=== PATIENT | female | born 1950 | race African-American/Black ===

== ENCOUNTER 2016-03-11 15:08 | Inpatient (IN) | payer BC, OTHER ==
[2016-03-11 15:16] VITALS: BMI 33.5
--- NOTE | 2016-03-11 15:42 | PDOC ---
History of Present Illness - General History Source: Patient Exam Limitations: No Limitations - History of Present Illness Initial Comments: 03/11/16 15:52 The patient is a 66-year-old woman, accompanied by family, with a significant past medical history of anemia, hypertension, CVA, end-stage renal disease (on hemo-dialysis;TRS), insulin-dependent diabetes mellitus who presents to the emergency department for further evaluation of abdominal pain since yesterday. Patient states that he abdominal pain is diffuse and associated with nausea vomiting and shortness of breath. Patient does not provide the nature of the pain and provide exacerbating/alleviating factors but states that her pain was so severe that it did not allow for her to undergo hemo-dialysis yesterday. Patient also notes that she feels lightheaded and thirsty. No fevers, chills, chest pain, cough, back pain. Allergies: None Known Drug Allergies. Nuts. Pats Surgical History: Appendectomy. Caesarian Sections x3. Tubal ligation. Social History: No tobacco, ETOH and recreational drug use. Primary Care Physician: Dr. Rebecca Villarreal Supervisor Pipeline Maintenance: Dr. Garfield Arriaza [place] Operator: Dr. Alessia Keenan <Marzena Riojas - Last Filed: 03/11/16 17:06> <Jodi Justin - Last Filed: 03/12/16 10:36> - General Chief Complaint: Shortness of Breath Stated Complaint: SOB Time Seen by Provider: 03/11/16 15:41 Past History <Marzena Riojas - Last Filed: 03/11/16 17:06> - Past Medical History Anemia: Yes Asthma: Yes Cancer: No Cardiac Disorders: No CVA: Yes CHF: No Diabetes: Yes (NIDDM) GI Disorders: No Disorders: No HTN: Yes Hypercholesterolemia: No Liver Disease: No - Surgical History Abdominal Surgery: No Appendectomy: Yes Cardiac Surgery: No Cholecystectomy: No Lung Surgery: No Neurologic Surgery: No Orthopedic Surgery: No - Psycho/Social/Smoking Cessation Hx Anxiety: No Suicidal Ideation: No Smoking Status: No Smoking History: Never smoked Have you smoked in the past 12 months: No Number of Cigarettes Smoked Daily: 0 Information on smoking cessation initiated: No Hx Alcohol Use: No Drug/Substance Use Hx: No Substance Use Type: None Hx Substance Use Treatment: No <Jodi Justin - Last Filed: 03/12/16 10:36> - Past Medical History Allergies/Adverse Reactions: Allergies Allergy/AdvReac Type Severity Reaction Status Date / Time nut - unspecified [nut] Allergy Verified 03/11/16 15:12 Home Medications: Ambulatory Orders Aspirin/Dipyridamole [Aggrenox -] 1 combo PO BID 12/23/15 Methimazole 5 mg PO DAILY 12/23/15 Clonidine HCl [Catapres -] 0.1 mg PO TID #0 tablet 01/12/16 Diltiazem Cd [Cardizem Cd -] 120 mg PO DAILY cap.cd.24h 01/12/16 Ferrous Sulfate [Feosol] 325 mg PO TIDCM ud 01/12/16 Furosemide [Lasix -] 80 mg PO DAILY tablet 01/12/16 Metoprolol Succinate [Toprol XL -] 25 mg PO BID tab.sr.24h 01/12/16 Nifedipine ER [Procardia XL -] 60 mg PO BID tab.er.24 01/12/16 Review of Systems - Review of Systems Able to Perform ROS?: Yes Comments:: 03/11/16 15:52 GENERAL/CONSTITUTIONAL: No fever or chills. No weakness. HEAD, EYES, EARS, NOSE AND THROAT: No change in vision. No ear pain or discharge. No sore throat. CARDIOVASCULAR: Yes: +Shortness of breath. No chest pain. RESPIRATORY: No cough, wheezing, or hemoptysis. GASTROINTESTINAL: Yes: +Abdominal Pain. +Nausea. +Vomiting. No diarrhea or constipation. GENITOURINARY: No dysuria, frequency, or change in urination. MUSCULOSKELETAL: No joint or muscle swelling or pain. No neck or back pain. SKIN: No rash NEUROLOGIC: Yes: +Lightheaded. No headache, vertigo, loss of consciousness. ENDOCRINE: Yes: +Increased thirst. No abnormal weight change. HEMATOLOGIC/LYMPHATIC: No anemia, easy bleeding, or history of blood clots. ALLERGIC/IMMUNOLOGIC: No hives or skin allergy. <Marzena Riojas - Last Filed: 03/11/16 17:06> *Physical Exam - Vital Signs Last Vital Signs Temp Pulse Resp BP Pulse Ox 97.4 F L 114 H 26 H 140/98 100 03/11/16 15:12 03/11/16 15:12 03/11/16 15:12 03/11/16 15:12 03/11/16 15:12 <Marzena Riojas - Last Filed: 03/11/16 17:06> - Vital Signs Last Vital Signs Temp Pulse Resp BP Pulse Ox 97.4 F L 114 H 26 H 140/98 100 03/11/16 15:12 03/11/16 15:12 03/11/16 15:12 03/11/16 15:12 03/11/16 15:12 - Physical Exam Comments: GENERAL: Awake, alert, and fully oriented, in no acute distress. Morbidly obese. HEAD: No signs of trauma EYES: PERRLA, EOMI, sclera anicteric, conjunctiva clear ENT: Auricles normal inspection, hearing grossly normal, nares patent, oropharynx clear without exudates. Moist mucosa NECK: Normal ROM, supple, no lymphadenopathy, JVD, or masses LUNGS: Distant breath sounds due to body habitus. Breath sounds equal, clear to auscultation bilaterally. HEART: Regular rate and rhythm, normal S1 and S2, no murmurs, rubs or gallops ABDOMEN: Soft, nontender, normoactive bowel sounds. No guarding, no rebound. No masses EXTREMITIES: Normal range of motion, no edema. No clubbing or cyanosis. No cords, erythema, or tenderness NEUROLOGICAL: Cranial nerves II through XII grossly intact. Normal speech, normal gait SKIN: Warm, Dry, normal turgor, no rashes or lesions noted. <Jodi Justin - Last Filed: 03/12/16 10:36> ED Treatment Course - LABORATORY CBC & Chemistry Diagram: 03/11/16 15:50 03/11/16 15:50 <Marzena Riojas - Last Filed: 03/11/16 17:06> - LABORATORY CBC & Chemistry Diagram: 03/11/16 15:50 03/11/16 15:50 - RADIOLOGY Radiology Studies Ordered: Category Date Time Status CHEST X-RAY PORTABLE* [RAD] Stat Radiology 03/11/16 15:35 Ordered <Jodi Justin - Last Filed: 03/12/16 10:36> Medical Decision Making - Medical Decision Making 03/11/16 16:53 A call was placed to Supervisor Pipeline Maintenance, Dr. Garfield Arriaza at [phone]. <Marzena Riojas - Last Filed: 03/11/16 17:06> - Medical Decision Making 03/11/16 17:[address] Nava. Pt presents with multiple complaints, including abdominal pain, shortness of breath, and N/V. Denies chest pain. She is awaiting CT a/p. Her first cardiac enzyme was elevated. I discussed with Dr. Hernandez, covering Dr. Arriaza. Will continue to trend her enzymes, but in light of history of renal failure and fluid overload, will not intervene acutely at this point. I have given patient cardizem for her tachycardia. Dr. Nava to f/ u CT, then discuss with Dr. Villarreal for admission. <Jodi Justin - Last Filed: 03/12/16 10:36> *DC/Admit/Observation/Transfer - Attestations Scribe Attestion: 03/11/16 15:52 Documentation prepared by Marzena Riojas, acting as medical policy specialist for Jodi Justin MD. <Marzena Riojas - Last Filed: 03/11/16 17:06> <Jodi Justin - Last Filed: 03/12/16 10:36> Diagnosis at time of Disposition: End stage renal disease on dialysis, SVT (supraventricular tachycardia), Elevated troponin Abdominal pain Qualifiers: Abdominal location: generalized Qualified Code(s): R10.84 - Generalized abdominal pain - Referrals
[2016-03-11 15:55] LABS: BASOPHIL 1.3 % (0-2.0); EOSINOPHIL 0.2 % (0-4.5); MCH 25.7 pg (25.7-33.7); MCHC 30.9 g/dl (32.0-36.0); MEAN CELL VOLUME 83.2 fl (80-96); NEUTROPHILS 80.9 % (42.8-82.8); PLATELET COUNT 297 K/MM3 (134-434); RDW 14.9 % (11.6-15.6); WHITE BLOOD COUNT 12.8 K/mm3 (4.0-10.0)
[2016-03-11] MEDS ORDERED: NITROGLYCERIN 2% OINTMENT - 1GM PACKET TD ONE (15:58)
[2016-03-11 16:08] LABS: INR 1.12 (0.82-1.09); PROTHROMBIN TIME (PATIENT) 12.3 SEC (9.98-11.88)
[2016-03-11 16:23] LABS: ALBUMIN 2.8 g/dl (3.4-5.0); BILIRUBIN,TOTAL 0.6 mg/dL (0.2-1.0); CALCIUM 8.9 mg/dL (8.5-10.1); CREATININE 3.1 mg/dL (0.55-1.02); TOT PROT 6.9 g/dl (6.4-8.2)
[2016-03-11 16:43] LABS: TROPONIN I 0.54 ng/ml (0.00-0.05)
[2016-03-11] MEDS ORDERED: dilTIAZem HCL 50 MG/10 ML - 10 ML VIAL IVPUSH ONE ×2 (17:23→17:47)
[2016-03-11] MEDS ORDERED: dilTIAZem HCL 125 MG/25 ML - 25 ML VIAL ONE ×3 (17:26→19:17)
--- NOTE | 2016-03-11 17:46 | PDOC ---
*Physical Exam - Vital Signs Last Vital Signs Temp Pulse Resp BP Pulse Ox 97.4 F L 168 H 24 104/67 94 L 03/11/16 15:12 03/11/16 19:26 03/11/16 18:26 03/11/16 19:26 03/11/16 18:16 <Astrid Samaniego - Last Filed: 03/11/16 19:31> - Vital Signs Last Vital Signs Temp Pulse Resp BP Pulse Ox 97.4 F L 112 H 26 H 139/92 100 03/11/16 15:12 03/11/16 16:13 03/11/16 16:13 03/11/16 16:13 03/11/16 16:13 <Ebony Nava - Last Filed: 03/12/16 01:26> ED Treatment Course - LABORATORY CBC & Chemistry Diagram: 03/11/16 15:50 03/11/16 15:50 - ADDITIONAL ORDERS Additional order review: Laboratory Results 03/11/16 03/11/16 15:50 15:50 INR 1.12 Sodium 141 Potassium 4.6 D Chloride 106 Carbon Dioxide 25 Anion Gap 10 BUN 13 D Creatinine 3.1 H Creat Clearance w eGFR 15.03 Random Glucose 228 H D Calcium 8.9 Total Bilirubin 0.6 AST 28 ALT 22 D Alkaline Phosphatase 168 H Creatine Kinase 49 Troponin I 0.54 H B-Natriuretic Peptide 01118.03 H Total Protein 6.9 D Albumin 2.8 L 03/11/16 15:50 RBC 4.46 D MCV 83.2 MCHC 30.9 L RDW 14.9 D MPV 9.0 Neutrophils % 80.9 Lymphocytes % 10.1 D Monocytes % 7.5 Eosinophils % 0.2 Basophils % 1.3 D - Medications Given in the ED: ED Medications Discontinued Medications Generic Name Dose Route Start Last Admin Trade Name Freq PRN Reason Stop Dose Admin Diltiazem HCl 10 mg 03/11/16 17:23 03/11/16 17:30 Cardizem Injection - IVPUSH 03/11/16 17:24 10 mg ONCE ONE Administration Diltiazem HCl 10 mg 03/11/16 17:47 03/11/16 17:50 Cardizem Injection - IVPUSH 03/11/16 17:48 10 mg ONCE ONE Administration Metoprolol Succinate 25 mg 03/11/16 18:56 03/11/16 19:03 Toprol Xl - PO 03/11/16 18:57 25 mg ONCE ONE Administration Metoprolol Tartrate 5 mg 03/11/16 18:06 03/11/16 18:00 Lopressor Injection - IVPUSH 03/11/16 18:07 5 mg NOW ONE Administration Nitroglycerin 1 inch 03/11/16 15:58 03/11/16 16:15 Nitro-Bid 2% Paste - TD 03/11/16 15:59 1 inch ONCE ONE Administration <Astrid Samaniego - Last Filed: 03/11/16 19:31> - LABORATORY CBC & Chemistry Diagram: 03/11/16 15:50 03/11/16 15:50 - ADDITIONAL ORDERS Additional order review: Laboratory Results 03/11/16 03/11/16 15:50 15:50 INR 1.12 Sodium 141 Potassium 4.6 D Chloride 106 Carbon Dioxide 25 Anion Gap 10 BUN 13 D Creatinine 3.1 H Creat Clearance w eGFR 15.03 Random Glucose 228 H D Calcium 8.9 Total Bilirubin 0.6 AST 28 ALT 22 D Alkaline Phosphatase 168 H Creatine Kinase 49 Troponin I 0.54 H B-Natriuretic Peptide 27151.03 H Total Protein 6.9 D Albumin 2.8 L 03/11/16 15:50 RBC 4.46 D MCV 83.2 MCHC 30.9 L RDW 14.9 D MPV 9.0 Neutrophils % 80.9 Lymphocytes % 10.1 D Monocytes % 7.5 Eosinophils % 0.2 Basophils % 1.3 D - Medications Given in the ED: ED Medications Discontinued Medications Generic Name Dose Route Start Last Admin Trade Name Danny PRN Reason Stop Dose Admin Diltiazem HCl 10 mg 03/11/16 17:23 03/11/16 17:30 Cardizem Injection - IVPUSH 03/11/16 17:24 10 mg ONCE ONE Administration Nitroglycerin 1 inch 03/11/16 15:58 03/11/16 16:15 Nitro-Bid 2% Paste - TD 03/11/16 15:59 1 inch ONCE ONE Administration <Ebony Nava - Last Filed: 03/12/16 01:26> Medical Decision Making - Medical Decision Making 03/11/16 19:[address] Arriaza at at 17:25. Referred to answering service. Dr. Hernandez, covering for Dr. Arriaza, returned call at 15:31. Case discussed. Called patients PCP, Dr. Rebecca Villarreal, at at 15:48. Referred to answering service. Dr. Villarreal returned call at 18:02. Case discussed. Called Dr. Alessia Lindquist at at 19:18. Referred to answering service. Dr. Lindquist returned call at 17:23. Case discussed. Dr. Lindquist will give patient dialysis tomorrow morning. <Astrid Samaniego - Last Filed: 03/11/16 19:31> - Critical Care Time Total Critical Care Time (minutes): 60 Critical Care Statement: The care of this patient involved high complexity decision making to prevent further life threatening deterioration of the patient 's condition and/or to evalute & treat vital organ system(s) failure or risk of failure. - Medical Decision Making 03/11/16 17:59 This 66-year-old female who is diabetic with end-stage renal disease is being admitted to telemetry because she had a troponin that was 0.54. We spoke to Dr. Weir and he said the patient should be admitted and we will trend her troponins. Nothing further to be done at this time. I had to call the restaurant supervisor back because earlier in order for Cardizem 10 mg IV push was written and the nurse administered Cardizem and the heart rate went up to the 180s. I spoke with Dr. Rubalcava and he said to try another 10 mg of Cardizem and then to start the patient on a Cardizem drip. 03/11/16 21:28 And found to have a temperature 11.6 Patient was given Tylenol Influenza culture was sent Blood culture and urinalysis ,urine cultures will be sent Dr. Rebecca Cobos was informed and requested Rocephin IV - spoke w to Dr. Rubalcava for a second time because she kept having recurrent tachycardia even after her fever came down. She seems to respond better to the beta blockers than the cardizem gtt and therefore he said to try to give her more Toprol. 03/12/16 01:24 <Ebony Nava - Last Filed: 03/12/16 01:26> *DC/Admit/Observation/Transfer - Attestations Scribe Attestion: 03/11/16 19:31 Documentation prepared by Atsrid Samaniego, acting as diploma medical assistant for Jodi Justin MD. <Astrid Samaniego - Last Filed: 03/11/16 19:31> - Discharge Dispostion Admit: Yes <Ebony Nava - Last Filed: 03/12/16 01:26> Diagnosis at time of Disposition: End stage renal disease on dialysis, SVT (supraventricular tachycardia), Elevated troponin - Referrals - Patient Instructions - Post Discharge Activity
[2016-03-11] MEDS ORDERED: dilTIAZem HCL 50 MG/10 ML - 10 ML VIAL ONE ×2 (17:51→19:17)
[2016-03-11] MEDS ORDERED: METOPROLOL TARTRATE 5 MG/5 ML VIAL ONE ×3 (17:56→23:25)
[2016-03-11] MEDS ORDERED: METOPROLOL TARTRATE 5 MG/5 ML VIAL IVPUSH ONE ×3 (18:06→23:30)
[2016-03-11] MEDS ORDERED: METOPROLOL SUCCINATE 100 MG TAB.SR.24H (FP) PO ONE (18:56)
[2016-03-11] MEDS ORDERED: METOPROLOL TARTRATE 25 MG TABLET (FP) ONE (18:59)
[2016-03-11] MEDS ORDERED: METOPROLOL SUCCINATE 50 MG TAB.SR.24H (FP) ONE ×3 (19:00→23:59)
[2016-03-11] MEDS ORDERED: DILTIAZEM INJECTION 125 MG in DEXTROSE 5%-WATER - 100 ML IVPB ONE (19:26)
[2016-03-11] MEDS ORDERED: SODIUM CHLORIDE 0.9% 1000 ML INFUS.BAG IV ONE (20:07)
[2016-03-11] MEDS ORDERED: ACETAMINOPHEN INJECTION 100 ML IVPB ONE (20:53)
[2016-03-11] MEDS ORDERED: ACETAMINOPHEN 1000 MG/100 ML VIAL (NON FORMULARY) IVPB ONE (20:57)
[2016-03-11] MEDS ORDERED: OSELTAMIVIR PHOSPHATE 75 MG CAPSULE PO ONE (21:00)
[2016-03-11] MEDS ORDERED: ACETAMINOPHEN 1000 MG/100 ML VIAL (NON FORMULARY) IVPB PRN (21:00)
[2016-03-11] MEDS ORDERED: OSELTAMIVIR PHOSPHATE 75 MG CAPSULE ONE (21:04)
[2016-03-11] MEDS ORDERED: CEFTRIAXONE 1 GM in DEXTROSE 5%-WATER - 50 ML IVPB SCH (21:45)
[2016-03-11] MEDS ORDERED: CEFTRIAXONE 50 ML ONE (21:49)
[2016-03-11] MEDS: METOPROLOL SUCCINATE 25 MG TAB.SR.24H (FP) PO SCH (21:55)
[2016-03-11] MEDS: ASPIRIN/DIPYRIDAMOLE 25 MG/200 MG CAPSULE (FP) PO SCH (21:55)
[2016-03-11] MEDS: HEPARIN NA (PORCINE) 5,000 UNITS/ML 1ML VIAL SQ SCH (21:55)
[2016-03-11] MEDS ORDERED: NIFEdipine E.R 60 MG TABLET (UD) PO SCH (22:00)
[2016-03-11] MEDS ORDERED: cloNIDine HCL 0.1 MG TABLET PO SCH (22:00)
[2016-03-11] MEDS ORDERED: METHIMAZOLE 5 MG TABLET (FP) PO ONE (22:57)
[2016-03-12] MEDS ORDERED: METOPROLOL SUCCINATE 25 MG TAB.SR.24H (FP) PO ONE (00:15)
[2016-03-12 02:03] LABS: TROPONIN I 0.52 ng/ml (0.00-0.05)
[2016-03-12] MEDS ORDERED: ONDANSETRON 4 MG/2 ML VIAL ONE (03:04)
[2016-03-12] MEDS ORDERED: METOPROLOL TARTRATE 5 MG/5 ML VIAL ONE (04:20)
[2016-03-12] MEDS ORDERED: METOPROLOL TARTRATE 5 MG/5 ML VIAL IVPUSH ONE (04:26)
[2016-03-12] MEDS ORDERED: AMIODARONE HCL 150 MG/3 ML VIAL ONE (06:01)
[2016-03-12] MEDS ORDERED: AMIODARONE HCL INJECTION 150 MG in DEXTROSE 5%-WATER - 97 ML IVPB ONE (06:15)
[2016-03-12] MEDS ORDERED: AMIODARONE HCL INJECTION 450 MG in DEXTROSE 5%-WATER - 241 ML IVPB SCH (06:30)
--- NOTE | 2016-03-12 08:57 | CONSULT ---
Consultation: REQUESTING PROVIDER: CONSULT REQUEST: We have been asked to medically evaluate this patient for sepsis. HISTORY OF PRESENT ILLNESS: 66 year old female came in to the ED with the chief complaints of abdominal pain x 2 days. Abdominal pain started 2 days ago, progressively getting worse, initially 5/10 in intensity rising to 9/10 in intensity, crampy in nature, located on the right lower quadrant, non radiating, no aggravating or relieving factors. Abdominal pain was associated with nausea, 2 episodes of vomiting containing food particles, no blood noted. Also had 5 episodes of diarrhoea at home, watery in consistency, large in amount, no blood noticed. No h/o traveling, no sick contact, no change in food habits. Patient skipped dialysis on Saturday since she was light headed. Also complaints of palpitation and mild SOB on exertion but no chest pain, cough. Patient still complaints of nausea, had few episodes of vomiting and diarrhoea in the ED. Past Medical Hx: HTN, DM, ESRD on dialysis (T,,Sat), ILD ? cause, anemia, Hepatitis C, SVT Allergies- Nuts, Mushrooms Surgical Hx: Appendectomy many years ago, section x 3, tubal ligation Hospitalization: Multiple admissions, last visit 01/30/2016 s/p fall Social Hx: Never smoked, never took alcohol, no illicit drug use Lives with daughter and grand daughter. Able to perform daily activities on her own. ED course: 1. Tachycardic HR max-180, Tmax-101.6F, 26 RR 2. Given Ceftriaxone, started on Cardizem drip and Amiodarone drip REVIEW OF SYSTEMS: CONSTITUTIONAL: Absent: fever, chills, diaphoresis, generalized weakness, malaise, loss of appetite, weight change HEENT: Absent: rhinorrhea, nasal congestion, throat pain, throat swelling, difficulty swallowing, mouth swelling, ear pain, eye pain, visual changes CARDIOVASCULAR: Present: palpitations Absent: chest pain, syncope, , irregular heart rate, lightheadedness, peripheral edema RESPIRATORY: Present: SOB Absent: cough, dyspnea with exertion, orthopnea, wheezing, stridor, hemoptysis GASTROINTESTINAL: Present: abdominal pain, abdominal distension, nausea, vomiting, diarrhea Absent: constipation, melena, hematochezia GENITOURINARY: Absent: dysuria, frequency, urgency, hesitancy, hematuria, flank pain, genital pain MUSCULOSKELETAL: Absent: myalgia, arthralgia, joint swelling, back pain, neck pain SKIN: Absent: rash, itching, pallor HEMATOLOGIC/IMMUNOLOGIC: Absent: easy bleeding, easy bruising, lymphadenopathy, frequent infections ENDOCRINE: Absent: unexplained weight gain, unexplained weight loss, heat intolerance, cold intolerance NEUROLOGIC: Absent: headache, focal weakness or paresthesias, dizziness, unsteady gait, seizure, mental status changes, bladder or bowel incontinence PSYCHIATRIC: Absent: anxiety, depression, suicidal or homicidal ideation, hallucinations. PHYSICAL EXAMINATION Vital Signs - 24 hr 03/11/16 03/11/16 03/11/16 22:18 22:32 23:08 Temperature 97.9 F Pulse Rate Pulse Rate [ 107 H 162 H 155 H Apical] Respiratory 22 22 18 Rate Blood Pressure Blood Pressure 147/98 82/62 96/56 [Right Arm] O2 Sat by Pulse 100 100 100 Oximetry (%) 03/11/16 03/11/16 03/12/16 23:30 23:56 00:49 Temperature Pulse Rate 155 H Pulse Rate [ 90 89 Apical] Respiratory 18 17 Rate Blood Pressure 103/86 Blood Pressure 130/91 141/78 [Right Arm] O2 Sat by Pulse 100 99 Oximetry (%) 03/12/16 03/12/16 03/12/16 01:41 03:13 04:26 Temperature Pulse Rate 155 H 155 H Pulse Rate [ 150 H Apical] Respiratory 17 Rate Blood Pressure 79/58 121/76 Blood Pressure 95/66 [Right Arm] O2 Sat by Pulse 100 Oximetry (%) 03/12/16 03/12/16 03/12/16 04:27 05:08 06:36 Temperature Pulse Rate Pulse Rate [ 88 98 H 90 Apical] Respiratory 16 22 Rate Blood Pressure Blood Pressure 152/96 147/94 [Right Arm] O2 Sat by Pulse 100 100 Oximetry (%) 03/12/16 08:21 Temperature Pulse Rate Pulse Rate [ 85 Apical] Respiratory 31 H Rate Blood Pressure Blood Pressure 145/91 [Right Arm] O2 Sat by Pulse 98 Oximetry (%) GENERAL: Patient in bed in propped up position, Awake, alert, and fully oriented , in no acute distress. HEAD: Normal with no signs of trauma. EYES: EOM intact, mild pallor +, no icterus. EARS, NOSE, THROAT: Ears normal, moist mucous membranes NECK: Supple, no JVD or mass. LUNGS: Breath sounds equal, clear to auscultation bilaterally. No wheezes, and no crackles. No accessory muscle use. HEART: Tachycardic, visible apical impulse, Regular rate and rhythm, normal S1 and S2, no murmur ABDOMEN: Soft, tenderness over right lower quadrant, normoactive bowel sounds, no guarding, no rebound, no masses. Hepatosplenomegaly couldn't be appreciated due to pain. MUSCULOSKELETAL: Normal range of motion at all joints. No bony deformities or tenderness. No CVA tenderness. UPPER EXTREMITIES: Left AV fistula thrill +, 2+ pulses, warm, well-perfused. No cyanosis. No clubbing. Cap refill <2 seconds. No peripheral edema. LOWER EXTREMITIES: Scaly skin, dry, skin, stasis dermatitis B/L LE, 2+ pulses, warm, well-perfused. No calf tenderness. B/L pitting edema. NEUROLOGICAL: Cranial nerves II-XII intact. Normal speech. Normal gait. PSYCHIATRIC: Cooperative. Good eye contact. Appropriate mood and affect. SKIN: Warm, dry, normal turgor, no rashes or lesions noted. Laboratory Results - last 24 hr 03/12/16 00:01 Creatine Kinase 51 Troponin I 0.52 H Active Medications Generic Name Dose Route Start Last Admin Trade Name Danny PRN Reason Stop Dose Admin Acetaminophen 1,000 mg 03/11/16 21:00 Ofirmev Injection - IVPB 03/12/16 15:01 Q6H PRN FEVER OR PAIN Dipyridamole/Aspirin 1 combo 03/11/16 22:00 03/11/16 21:55 Aggrenox - PO 1 combo BID EMELINA Administration Ferrous Sulfate 325 mg 03/12/16 08:00 Feosol - PO TIDCM EMELINA Furosemide 80 mg 03/12/16 10:00 Lasix - PO DAILY EMELINA Heparin Sodium (Porcine) 5,000 unit 03/11/16 22:00 03/11/16 21:55 Heparin - SQ 5,000 unit BID EMELINA Administration Diltiazem HCl 125 mg/ Dextrose 125 mls @ 5 mls/hr 03/11/16 19:26 03/12/16 04:30 IVPB 03/12/16 20:25 0 mg/hr TITR ONE Titration Protocol 5 MG/HR Ceftriaxone Sodium 50 mls @ 100 mls/hr 03/11/16 22:17 Rocephin 1gm Ivpb (Pre-Docked) IVPB DAILY EMELINA Amiodarone HCl 450 mg/ 250 mls @ 33.33 mls/hr 03/12/16 06:30 03/12/16 06:36 Dextrose IVPB 33.33 mls/hr TITR EMELINA Administration Protocol 1 MG/MIN Methimazole 5 mg 03/12/16 10:00 Tapazole - PO DAILY EMELINA Metoprolol Succinate 25 mg 03/11/16 22:00 03/11/16 21:55 Toprol Xl - PO 25 mg BID EMELINA Administration Underlying problems:- 66 year old with significant PMH HTN, DM, ESRD on dialysis (T,Th,Sat), ILD ? cause, anemia, Hepatitis C, SVT of female came in to the ED with the chief complaints of abdominal pain x 2 days. Assessment 1. Sepsis unknown source 2. SVT r/o ACS 3. Increased troponins 4. ESRD on Dialysis 5. ILD ? cause 6. Hepatitis C 7. HTN 8. DM # Sepsis unknown source Patient presented with Tmax 101.6F, HR [id number], abdominal pain, diarrhoea, nausea and vomiting Differential diagnosis:- Acute Gastroenteritis, ischemic bowel Less likely diverticulitis -negative in CT abdomen D/w Dr. Churchill. Empiric treatment started with Ceftriaxone and Metronidazole Stool culture, ova parasites, c diff, PCR Norovirus, Ag for Rotavirus ordered Lactic acid ordered CXR, CT abdomen report pending Nasopharyngeal swab to be ordered. # Hepatitis C 01/05/2016: Hepatitis C Ab >11 Do not know if she received the treatment Negative for HIV 01/05/2016 Rest as per primary. Illness, Investigation and plan of care explained to the patient. She verbalized understanding. Case seen and examined with Dr. Caldwell Thank you for the consultative opportunity. Visit type - Emergency Visit Emergency Visit: Yes ED Registration Date: 03/11/16 Care time: The patient presented to the Emergency Department on the above date and was hospitalized for further evaluation of their emergent condition. - New Patient This patient is new to me today: Yes Date on this admission: 03/12/16 - Critical Care Critical Care patient: No
[2016-03-12 09:17] LABS: TROPONIN I 0.52 ng/ml (0.00-0.05)
[2016-03-12] MEDS ORDERED: FERROUS SO4 325 MG TABLET (FP) ONE (09:30)
[2016-03-12] MEDS: FERROUS SO4 325 MG TABLET (FP) PO SCH ×3 (09:32→17:58)
--- NOTE | 2016-03-12 09:42 | CONSULT ---
Consult Consult Specialty:: cardio Referred by:: kee Reason for Consultation:: SVT - History of Present Illness Chief Complaint: abd pain History of Present Illness: 66 yo female here with abd pain; says she often feels this during/after HD; diffuse across belly--no radiation to chest. denies any cp whatsoever. 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: CVA (transient speech loss and left hemiparesis in 2013) Cardio/Vascular: Yes: CHF (end diastolic), HTN, Hyperlipdemia Pulmonary: Yes: Asthma, Pneumonia Gastrointestinal: Yes: Constipation, GERD Renal/: Yes: Renal Inusuff Musculoskeletal: Yes: Osteoarthritis Endocrine: Yes: Diabetes Mellitus (diabetic retinopathy ( treated ) and neuropathy), Hyperthyroidism (Graves Disease with thyroid nodule), Other ( THYROID DISEASE) - Past Surgical History Past Surgical History: Yes: Appendectomy, Colonoscopy, (C section x 4) , Hysterectomy - Alcohol/Substance Use Hx Alcohol Use: No History of Substance Use: reports: None - Smoking History Smoking history: Never smoked Have you smoked in the past 12 months: No Aproximately how many cigarettes per day: 0 - Social History Usual Living Arrangement: Alone ADL: Independent History of Recent Travel: No Home Medications - Allergies Allergies/Adverse Reactions: Allergies Allergy/AdvReac Type Severity Reaction Status Date / Time nut - unspecified [nut] Allergy Verified 03/11/16 15:12 - Home Medications Home Medications: Ambulatory Orders Aspirin/Dipyridamole [Aggrenox -] 1 combo PO BID 12/23/15 Methimazole 5 mg PO DAILY 12/23/15 Clonidine HCl [Catapres -] 0.1 mg PO TID #0 tablet 01/12/16 Diltiazem Cd [Cardizem Cd -] 120 mg PO DAILY cap.cd.24h 01/12/16 Ferrous Sulfate [Feosol] 325 mg PO TIDCM ud 01/12/16 Furosemide [Lasix -] 80 mg PO DAILY tablet 01/12/16 Metoprolol Succinate [Toprol XL -] 25 mg PO BID tab.sr.24h 01/12/16 Nifedipine ER [Procardia XL -] 60 mg PO BID tab.er.24 01/12/16 Family Disease History - Family Disease History Family Disease History: Diabetes: Mother (alive 91), Brother Review of Systems - Review of Systems Constitutional: denies: Chills, Fever Eyes: denies: Eye Pain HENT: denies: Nasal Congestion Neck: denies: Stiffness Cardiovascular: denies: Chest Pain Respiratory: denies: Orthopnea, PND Gastrointestinal: denies: Diarrhea, Rectal Bleeding Genitourinary: denies: Burning, Hematuria Musculoskeletal: denies: Muscle Pain Integumentary: denies: Rash Neurological: denies: Numbness, Seizure, Syncope Endocrine: denies: Excessive Sweating Hematology/Lymphatic: denies: Excessive Bleeding Vital Signs: Vital Signs Temperature 97.9 F 03/11/16 22:32 Pulse Rate 85 03/12/16 08:21 Respiratory Rate 31 H 03/12/16 08:21 Blood Pressure 145/91 03/12/16 08:21 O2 Sat by Pulse Oximetry (%) 98 03/12/16 08:21 Constitutional: Yes: Well Nourished, No Distress Eyes: No: Sclera Icterus HENT: No: Nasal Congestion Neck: No: Decreased ROM Respiratory: Yes: CTA Bilaterally. No: Accessory Muscle Use, Rales, Wheezes Gastrointestinal: Yes: Normal Bowel Sounds. No: Distention, Hepatomegaly, Palpable Mass, Tenderness Cardiovascular: Yes: Regular Rate and Rhythm JVD: No Carotid Bruit: No PMI: Non-Displaced Heart Sounds: Yes: S1, S2. No: Gallop Murmur: No: Systolic Murmur, Diastolic Murmur Musculoskeletal: Yes: Other (No kyphosis) Extremities: No: Cold, Cyanosis Edema: Yes (trace-1+ pretib) Peripheral Pulses: 2+ Left Carotid, 2+ Right Carotid, 2+ Left Doralis Pedis, 2+ Right Dorsalis Pedis Integumentary: No: Jaundice Neurological: Yes: Alert, Oriented (x3) Psychiatric: No: Agitated - Other Data Labs, Other Data: INR, PTT INR 1.12 (0.82-1.09) 03/11/16 15:50 Troponin, BNP 03/12/16 03/12/16 00:01 08:10 Troponin I 0.52 H 0.52 H Troponin, BNP 03/12/16 03/12/16 00:01 08:10 Troponin I 0.52 H 0.52 H Laboratory Tests 03/11/16 03/11/16 03/12/16 15:50 15:50 00:01 WBC 12.8 H Hgb 11.5 D Plt Count 297 D Sodium 141 Potassium 4.6 D Carbon Dioxide 25 BUN 13 D Creatinine 3.1 H AST 28 ALT 22 D Creatine Kinase 49 51 Troponin I 0.54 H 0.52 H B-Natriuretic Peptide 26358.03 H Albumin 2.8 L 03/12/16 08:10 WBC Hgb Plt Count Sodium Potassium Carbon Dioxide BUN Creatinine AST ALT Creatine Kinase 43 Troponin I 0.52 H B-Natriuretic Peptide Albumin ekg #1: NSR, LAFB, nonsp TWAs anterior leads, no path q's #2: rapid SVT (short R-P tach), no isch changes #3: NSR, nonsp TWAs anterior leads (new vs 12/17) and lateral leads (unchanged) Imaging - Results Chest X-ray: Report Reviewed (clear lungs/pleura) Assessment/Plan Echo 12/2015 report: mild dec lvef, global hk, rv tds, mod-sev mr -images reviewed by me: MR is moderate Echo 04/2015: nl lv/rv/valves Assessment/Plan 65-year-old with h/o recent admission for sob with subsequent bronchoscopy and respiratory failure, hypertension, CVA on aggrenox, SVT (new dx on last admission), CKD (possible baseline Cr 1.2-1.6), diabetes, thyroid abnormality on methimazole, multiple abd surgeries including hysterectomy and appendectomy presenting with SOB. fever (101.6 in ER), abd pain, ? septic shock: -CT done in ER, report pending -defer w/u to pmd +/- ID -BPs low at times in ER--appears to be sec to rapid SVTs, as her BPs normalize once she converts to sinus chronic lung dz, ? ILDz: - resp failure during prior admit with pulm infiltrates of unclear etiology, suspected ILDz of ? etiology, clinically improved with empiric steroids trial, open lung bx deferred (bronch was unrevealing) - 12/[address] dilated IVC but only small effusions, with upper lobe infiltrates more c/w PNA than chf (dr devi review: recurrent consolidation in changing locations/distributions in comparison to prior CT, possibly c/w cryptogenic organizing pneumonia/BOOP). elevated troponin: -trop here 0.5 x3, now c/w ACS -likely sec to rapid SVT causing mild Type II NV, vs ESRD pt, vs chronic hi filling pressures/chf -nonspecific TWAs on ekg's here also may be sec to recurrent rapid SVT (? had this as well in [place], causing changes on initial ecg here) -no aggressive anti-ischemic therapy indicated -should have nuclear stress test at some point to risk-stratify and r/o asymptomatic underlying obstructive CAD, though this is not urgent and can wait until she is medically stable -she is already on half-way ASA (Aggrenox); need to review prior admit notes and LFTs re: ? 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 currently having more paroxysms due to febrile illness -started on amio overnight in ER--will plan to give PO diltiazem (currently normal BP) and stop amio gtt if remains in NSR, given her SVT has responded well to dilt in past -d/c metoprolol as was not effective for SVT in past, and ? tenuous hemodynamic status - increast diltiazem (note: please prioritize dilt here to minimize recurrent hospitalizations or risk of tachy-CMP from uncontrolled SVT), d/c nifedipine; - if fails higher dose dilt she may need amio, or outpt EP eval for ablation vs flecainide -rpt echo for LVEF given sx's suggest freq rapid SVTs at home chronic diast CHF with mitral regurg: -vol mgmt primarily via HD/UF, per renal -MR only moderate, not etiologic in chf per my review or last echo -BNP 44K--unreliable in ckd/HD pt -CXR clear -appears euvolemic on exam -intermittent sob at home, likely sec to her chronic ILDz, doubt signif elevated filling pressures HTN -stable on current meds (holding hydralazine in case a cause of pedro per renal) -low bp's at times here ? sepsis, vs ? sec to PSVT ESRD, on HD: -s/p renal bx last time here c/w DM nephropathy -HD per renal h/o CVA - has been on aggrenox est crit care time 35min
[2016-03-12] MEDS ORDERED: ASPIRIN/DIPYRIDAMOLE 25 MG/200 MG CAPSULE (FP) ONE (10:58)
[2016-03-12] MEDS ORDERED: FUROSEMIDE 40 MG TABLET (FP) ONE (10:58)
[2016-03-12] MEDS ORDERED: HEPARIN NA (PORCINE) 5,000 UNITS/ML 1ML VIAL ONE (10:59)
[2016-03-12] MEDS ORDERED: dilTIAZem HCL 60 MG TABLET (FP) ONE (10:59)
[2016-03-12] MEDS: FUROSEMIDE 40 MG TABLET (FP) PO SCH (11:05)
[2016-03-12] MEDS: dilTIAZem HCL 60 MG TABLET (FP) PO SCH ×3 (11:05→21:57)
[2016-03-12] MEDS: ASPIRIN/DIPYRIDAMOLE 25 MG/200 MG CAPSULE (FP) PO SCH ×2 (11:05→21:57)
[2016-03-12] MEDS: METHIMAZOLE 5 MG TABLET (FP) PO SCH (11:18)
[2016-03-12] MEDS: HEPARIN NA (PORCINE) 5,000 UNITS/ML 1ML VIAL SQ SCH ×2 (11:28→21:59)
--- NOTE | 2016-03-12 11:52 | CONSULT ---
Consult - text type - Consultation Consultation Note: Renal Consult for ESRD on HD This is a 66 year old woman with PMhx of ESRD on HD (TTS at [facility]), Hypertension, DM, Hep C who presented with complaints of Abd pain and loose stools and found to have SVT and fever. Pt skipped her last dialysis on Saturday. Her last completed treatment was . Currently complains of abd discomfort but denies any SOB. Started on IV cardizem gtt as per Cardiology. No chest pain. + Nasuea. S/p CT of the Abd that showed no acute pathlogy apart from disruption of fat tissue on Right side of Abd. PMhx: as above Allergies: NKDA Family hx: NC Social hx: No T/A/D ROS: as per HPI, all other pertinent ros negative Home Meds: Medication Instructions Recorded Aspirin/Dipyridamole [Aggrenox -] 1 combo PO BID 12/23/15 Methimazole 5 mg PO DAILY 12/23/15 Clonidine HCl [Catapres -] 0.1 mg PO TID #0 tablet 01/12/16 Diltiazem Cd [Cardizem Cd -] 120 mg PO DAILY cap.cd.24h 01/12/16 Ferrous Sulfate [Feosol] 325 mg PO TIDCM ud 01/12/16 Furosemide [Lasix -] 80 mg PO DAILY tablet 01/12/16 Metoprolol Succinate [Toprol XL -] 25 mg PO BID tab.sr.24h 01/12/16 Nifedipine ER [Procardia XL -] 60 mg PO BID tab.er.24 01/12/16 Vital Signs Temperature 97.9 F 03/11/16 22:32 Pulse Rate 85 03/12/16 08:21 Respiratory Rate 31 H 03/12/16 08:21 Blood Pressure 145/91 03/12/16 08:21 O2 Sat by Pulse Oximetry (%) 98 03/12/16 08:21 Intake & Output 03/09/16 03/10/16 03/11/16 03/12/16 23:59 23:59 23:59 23:59 Weight 208 lb Gen: NAD, awake and alert HEENT: NC/AT, MMM, No JVD CVS: RRR, No M/R Lungs: CTA no rales or wheeze. Abd: Obese, mild tenderness Ext: No edema, clubbing or cyanosis : no bladder distension Neuro: AAOx3, no focal defects CBC, BMP 03/11/16 15:50 03/11/16 15:50 Current Medications Acetaminophen (Ofirmev Injection -) 1,000 mg IVPB Q6H PRN PRN Reason: FEVER OR PAIN Stop: 03/12/16 15:01 Diltiazem HCl (Cardizem -) 60 mg PO TID [facility] Last Admin: 03/12/16 11:05 Dose: 60 mg Dipyridamole/Aspirin (Aggrenox -) 1 combo PO BID [facility] Last Admin: 03/12/16 11:05 Dose: 1 combo Ferrous Sulfate (Feosol -) 325 mg PO TIDCM [facility] Last Admin: 03/12/16 09:32 Dose: 325 mg Furosemide (Lasix -) 80 mg PO DAILY [facility] Last Admin: 03/12/16 11:05 Dose: 80 mg Heparin Sodium (Porcine) (Heparin -) 5,000 unit SQ BID [facility] Last Admin: 03/12/16 11:28 Dose: Not Given Diltiazem HCl 125 mg/ Dextrose 125 mls @ 5 mls/hr IVPB TITR ONE; 5 MG/HR PRN Reason: Protocol Stop: 03/12/16 20:25 Last Titration: 03/12/16 04:30 Dose: 0 mg/hr Ceftriaxone Sodium (Rocephin 1gm Ivpb (Pre-Docked)) 50 mls @ 100 mls/hr IVPB DAILY [facility] Metronidazole (Flagyl 500mg Premixed Ivpb -) 100 mls @ 100 mls/hr IVPB Q8H-IV [facility]EL[facility] Methimazole (Tapazole -) 5 mg PO DAILY [facility] Last Admin: 03/12/16 11:18 Dose: 5 mg A/P 66 year old woman with PMhx of ESRD on HD (TTS at [facility]) , Hypertension, DM, Hep C who presented with complaints of Abd pain and loose stools and found to have SVT and fever. #ESRD on HD Missed last dialysis on Saturday BNP form this am pending Pt appears evolemic Will plan for dialysis Tomorrow unless BMP shows hyperkalemia or acodosis Dose all meds for intermittent HD #SVT rate control as per cardiology #Elevated Troponins Stable Tele monitoring Cardiology following #Renal Osteodystrophy Check Phos Vit D analog with Hd #CKD related Anemia Hgb at goal Thank you will follow Jon Paz DO
[2016-03-12 12:05] LABS: CREATININE 3.5 mg/dL (0.55-1.02)
--- NOTE | 2016-03-12 12:10 | PN ---
Teaching Attending Note Name of Resident: Maria De Jesus Shaw ATTENDING PHYSICIAN STATEMENT I saw and evaluated the patient. I reviewed the resident's note and discussed the case with the resident. I agree with the resident's findings and plan as documented. SUBJECTIVE: 66 y/o female PMH ESRD, ILD, S/P appendectomy admitted with RLQ abdominal pain N/V/D. Developed tachycardia in ER, started on cardizem drip OBJECTIVE: Febrile Tmax 101.6 cor S1S2 Lungs clear Abdomen soft, BS+ no mild RLQ tenderness no guarding/ mass/ rebound/ rigidity ASSESSMENT AND PLAN: Acute gastoenteritis Possible ischemic bowel Possible diverticulitis-less likely CT reviewed with radiologist- no acute bowel pathology Obtain stool c/s,O&P, C diff, rotavirus/ norovirus. Influenza screen Empiric ceftriaxone/ flagyl
[2016-03-12] MEDS ORDERED: CEFTRIAXONE 50 ML ONE (12:47)
[2016-03-12] MEDS ORDERED: METRONIDAZOLE 500 MG PREMIXED 100 ML IVPB ONE (12:47)
[2016-03-12] MEDS: CEFTRIAXONE 50 ML IVPB SCH (12:53)
[2016-03-12] MEDS: METRONIDAZOLE 500 MG PREMIXED 100 ML IVPB SCH ×2 (14:22→18:05)
[2016-03-12] MEDS: METOPROLOL SUCCINATE 25 MG TAB.SR.24H (FP) PO SCH (14:34)
--- NOTE | 2016-03-12 17:12 | EKG ---
Test Reason : Blood Pressure : / mmHG Vent. Rate : 118 BPM Atrial Rate : 118 BPM P-R Int : 182 ms QRS Dur : 086 ms QT Int : 344 ms P-R-T Axes : 069 -25 076 degrees QTc Int : 482 ms SINUS TACHYCARDIA WITH PREMATURE ATRIAL COMPLEXES VS. MULTIFOCAL ATRIAL TACHYCARDIA POSSIBLE LEFT ATRIAL ENLARGEMENT BORDERLINE ECG WHEN COMPARED WITH ECG OF 23-DEC-2015 22:27, PREMATURE ATRIAL COMPLEXES ARE NOW PRESENT VS. POSSIBLE RHYTHM CHANGE Confirmed by KAITLYNN CHAIREZ MD ([id number]) on 03/12/2016 5:11:27 PM Referred By: Confirmed By:KAITLYNN CHAIREZ MD
--- NOTE | 2016-03-12 23:05 | HP ---
Admitting History and Physical - Primary Care Physician PCP: Rebecca Villarreal S - Admission Chief Complaint: sob N/V/D abdominal pain, fever and chills History of Present Illness: The patient is a 66-year-old woman, accompanied by family, with a significant past medical history of anemia, hypertension, CVA, end-stage renal disease (on hemo-dialysis;TRS), insulin-dependent diabetes mellitus who presents to the emergency department for further evaluation of abdominal pain for 2 days. Patient states that he abdominal pain is diffuse and associated with nausea vomiting diarrhea fever and chills and shortness of breath. Patient does not provide the nature of the pain and provide exacerbating/alleviating factors but states that her pain was so severe that it did not allow for her to undergo hemo -dialysis. Patient also notes that she feels lightheaded and thirsty. No fevers , chills, chest pain, cough, back pain. 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: CVA (transient speech loss and left hemiparesis in 2012) Cardiovascular: Yes: CHF (end diastolic), HTN, Hyperlipdemia Pulmonary: Yes: Asthma, Pneumonia Gastrointestinal: Yes: Constipation, GERD Renal/: Yes: Renal Inusuff Heme/Onc: Yes: Anemia Musculoskeletal: Yes: Osteoarthritis Endocrine: Yes: Diabetes Mellitus (diabetic retinopathy ( treated ) and neuropathy), Hyperthyroidism (Graves Disease with thyroid nodule), Other ( THYROID DISEASE) - Past Surgical History Past Surgical History: Yes: Appendectomy, Colonoscopy, (C section x 4) , Hysterectomy - Smoking History Smoking history: Never smoked Have you smoked in the past 12 months: No Aproximately how many cigarettes per day: 0 - Alcohol/Substance Use Hx Alcohol Use: No History of Substance Use: reports: None - Social History Usual Living Arrangement: Yes: With Child ADL: Independent History of Recent Travel: No Home Medications - Allergies Allergies/Adverse Reactions: Allergies Allergy/AdvReac Type Severity Reaction Status Date / Time nut - unspecified [nut] Allergy Verified 03/11/16 15:12 - Home Medications Home Medications: Ambulatory Orders Aspirin/Dipyridamole [Aggrenox -] 1 combo PO BID 12/23/15 Methimazole 5 mg PO DAILY 12/23/15 Clonidine HCl [Catapres -] 0.1 mg PO TID #0 tablet 01/12/16 Diltiazem Cd [Cardizem Cd -] 120 mg PO DAILY cap.cd.24h 01/12/16 Ferrous Sulfate [Feosol] 325 mg PO TIDCM ud 01/12/16 Furosemide [Lasix -] 80 mg PO DAILY tablet 01/12/16 Metoprolol Succinate [Toprol XL -] 25 mg PO BID tab.sr.24h 01/12/16 Nifedipine ER [Procardia XL -] 60 mg PO BID tab.er.24 01/12/16 Family Disease History - Family Disease History Family Disease History: Diabetes: Mother (alive 91), Brother Review of Systems - Review of Systems Constitutional: reports: Chills, Fever. denies: Lethargy Eyes: denies: Blind Spots, Blurred Vision, Double Vision HENT: denies: Difficult Swallowing, Ear Pain Neck: denies: Pain on Movement, Stiffness, Tenderness Cardiovascular: reports: Shortness of Breath. denies: Chest Pain, Edema, Palpitations Respiratory: reports: Cough, SOB, SOB on Exertion Gastrointestinal: reports: Abdominal Pain (RLQ), Diarrhea, Nausea, Vomiting. denies: Bloating, Constipation, Dysphagia, Indigestion, Melena, Rectal Bleeding , Vomiting Blood Genitourinary: denies: Burning, Discharge, Dysuria, Flank Pain Musculoskeletal: denies: Back Pain, Joint Swelling Integumentary: denies: Blister, Bruising Neurological: denies: Change in LOC, Change in Speech, Confusion Hematology/Lymphatic: denies: Easily Bruised, Excessive Bleeding Psychiatric: denies: Altered Sleep Pattern, Anxiety, Depression Physical Examination Vital Signs: Vital Signs Temperature 98.2 F 03/12/16 17:55 Pulse Rate 78 03/12/16 17:55 Respiratory Rate 19 03/12/16 17:55 Blood Pressure 150/87 03/12/16 17:55 O2 Sat by Pulse Oximetry (%) 100 03/12/16 17:15 Constitutional: Yes: No Distress, Calm Eyes: Yes: Conjunctiva Clear HENT: Yes: Atraumatic Neck: Yes: Supple Cardiovascular: Yes: Regular Rate and Rhythm Respiratory: Yes: CTA Bilaterally Gastrointestinal: Yes: Soft, Tenderness (with palpation RLQ) Renal/: No: CVA Tenderness - Left, CVA Tenderness - Right Musculoskeletal: No: Joint Stiffness, Joint Swelling Extremities: No: Cold, Cool Edema: No Peripheral Pulses WNL: Yes Integumentary: No: Pressure Ulcer, Rash, Venous Stasis Changes Neurological: Yes: WNL, Alert, Oriented ...Motor Strength: WNL Psychiatric: Yes: WNL, Alert, Oriented. No: Agitated, Suicidal Ideation Labs: CBC, BMP 03/12/16 08:10 Imaging - Results Chest X-ray: Report Reviewed Cat Scan: Report Reviewed Other: Report Reviewed Assessment/Plan The patient is a 66-year-old woman, accompanied by family, with a significant past medical history of anemia, hypertension, CVA, end-stage renal disease (on hemo-dialysis;TRS), insulin-dependent diabetes mellitus who presents to the emergency department for further evaluation of abdominal pain for 2 days. Patient also notes that she feels lightheaded and thirsty and had N/V/D fever and chills. No fevers, chills, chest pain, cough, back pain. In ER developed SVT 180 started on iv cardizem and iv amiodarone drip but later meds adjusted per cardiology Allergies: None Known Drug Allergies. Nuts. Pats Surgical History: Appendectomy. Caesarian S admit; could be viral gastroenteritis but with pt's comorbidities would cover with ATB per ID HD per renal GI eval, abdomen US r.o intratecal hematoma check stools would continue sq heparin and po aggrenox for now falls pfx decubs pfx prognosis guarded d/w pt and staff pt agreed woth plan t time 75 min
[2016-03-13] MEDS: METRONIDAZOLE 500 MG PREMIXED 100 ML IVPB SCH ×3 (02:45→17:35)
[2016-03-13] MEDS: dilTIAZem HCL 60 MG TABLET (FP) PO SCH ×3 (05:19→21:00)
[2016-03-13] MEDS ORDERED: PARICALCITOL 5 MCG/ML VIAL IVPUSH ONE (09:30)
--- NOTE | 2016-03-13 10:14 | PN ---
Progress Note, Physician Chief Complaint: in bed nad no new c/o feels better, generally weak - Current Medication List Current Medications: Active Medications Diltiazem HCl (Cardizem -) 60 mg PO TID [facility] Last Admin: 03/13/16 05:19 Dose: 60 mg Dipyridamole/Aspirin (Aggrenox -) 1 combo PO BID [facility] Last Admin: 03/12/16 21:57 Dose: 1 combo Ferrous Sulfate (Feosol -) 325 mg PO TIDCM [facility] Last Admin: 03/12/16 17:58 Dose: 325 mg Furosemide (Lasix -) 80 mg PO DAILY [facility] Last Admin: 03/12/16 11:05 Dose: 80 mg Heparin Sodium (Porcine) (Heparin -) 5,000 unit SQ BID [facility] Last Admin: 03/12/16 21:59 Dose: Not Given Ceftriaxone Sodium (Rocephin 1gm Ivpb (Pre-Docked)) 50 mls @ 100 mls/hr IVPB DAILY [facility] Last Admin: 03/12/16 12:53 Dose: 100 mls/hr Metronidazole (Flagyl 500mg Premixed Ivpb -) 100 mls @ 100 mls/hr IVPB Q8H-IV [facility] Last Admin: 03/13/16 02:45 Dose: 100 mls/hr Methimazole (Tapazole -) 5 mg PO DAILY [facility] Last Admin: 03/12/16 11:18 Dose: 5 mg - Objective Vital Signs: Vital Signs Temperature 98.0 F 03/13/16 02:41 Pulse Rate 86 03/13/16 02:41 Respiratory Rate 19 03/13/16 02:41 Blood Pressure 166/98 03/13/16 02:41 O2 Sat by Pulse Oximetry (%) 98 03/12/16 21:00 Constitutional: Yes: No Distress, Calm Eyes: Yes: Conjunctiva Clear HENT: Yes: Atraumatic Neck: Yes: Supple Cardiovascular: Yes: Regular Rate and Rhythm Respiratory: Yes: CTA Bilaterally Gastrointestinal: Yes: Soft. No: Distention, Tenderness Genitourinary: No: CVA Tenderness - Left, CVA Tenderness - Right Musculoskeletal: No: Joint Stiffness, Joint Swelling Extremities: No: Cold, Cool Edema: No Peripheral Pulses WNL: Yes Integumentary: No: Rash, Venous Stasis Changes Neurological: Yes: WNL, Alert, Oriented ...Motor Strength: WNL Psychiatric: Yes: WNL, Alert, Oriented. No: Agitated Labs: CBC, BMP 03/12/16 08:10 INR, PTT INR 1.12 (0.82-1.09) 03/11/16 15:50 - ....Imaging Other: Report Reviewed Assessment/Plan The patient is a 66-year-old woman, accompanied by family, with a significant past medical history of anemia, hypertension, CVA, end-stage renal disease (on hemo-dialysis;TRS), insulin-dependent diabetes mellitus who presents to the emergency department for further evaluation of abdominal pain for 2 days. Patient also notes that she feels lightheaded and thirsty and had N/V/D fever and chills. No fevers, chills, chest pain, cough, back pain. In ER developed SVT 180 started on iv cardizem and iv amiodarone drip but later meds adjusted per cardiology Allergies: None Known Drug Allergies. Nuts. Pats Surgical History: Appendectomy. Caesarian S admit; could be viral gastroenteritis but with pt's comorbidities would cover with ATB per ID HD per renal GI eval, abdomen US did not show intratecal hematoma check stools would continue sq heparin and po aggrenox for now falls pfx decubs pfx prognosis guarded d/w pt and staff pt agreed with plan t time 40 min
[2016-03-13 10:49] LABS: EOSINOPHIL 0.4 % (0-4.5); MCH 26.5 pg (25.7-33.7); MCHC 31.5 g/dl (32.0-36.0); MEAN CELL VOLUME 84.1 fl (80-96); NEUTROPHILS 79.8 % (42.8-82.8); PLATELET COUNT 283 K/MM3 (134-434); RDW 14.8 % (11.6-15.6)
[2016-03-13 11:11] LABS: ALBUMIN 2.6 g/dl (3.4-5.0); CALCIUM 8.7 mg/dL (8.5-10.1); CREATININE 3.7 mg/dL (0.55-1.02)
[2016-03-13 11:12] LABS: BILIRUBIN,TOTAL 0.5 mg/dL (0.2-1.0); TOT PROT 6.5 g/dl (6.4-8.2)
[2016-03-13] MEDS: FERROUS SO4 325 MG TABLET (FP) PO SCH ×3 (11:33→16:36)
--- NOTE | 2016-03-13 11:45 | PN ---
Physical Exam: SUBJECTIVE: Patient seen and examined at bed side this morning. She said she was feeling sleepy and didn't want to be asked any questions. Hence ROS couldn' t be obtained. OBJECTIVE: Vital Signs Period Temp Pulse Resp BP Sys/Chavarria Pulse Ox Last 24 Hr 97.9 F-98.8 F 75-93 12-24 128-166/67-98 98-100 GENERAL: Patient in bed in propped up position, Awake, alert, and fully oriented , in no acute distress. HEAD: Normal with no signs of trauma. EYES: EOM intact, mild pallor +, no icterus. EARS, NOSE, THROAT: Ears normal, moist mucous membranes NECK: Supple, no JVD or mass. LUNGS: Breath sounds equal, clear to auscultation bilaterally. No wheezes, and no crackles. No accessory muscle use. HEART: Tachycardic, visible apical impulse, Regular rate and rhythm, normal S1 and S2, no murmur ABDOMEN: Soft, tenderness over right lower quadrant, normoactive bowel sounds, no guarding, no rebound, no masses. Hepatosplenomegaly couldn't be appreciated due to pain. MUSCULOSKELETAL: Normal range of motion at all joints. No bony deformities or tenderness. No CVA tenderness. UPPER EXTREMITIES: Left AV fistula thrill +, 2+ pulses, warm, well-perfused. No cyanosis. No clubbing. Cap refill <2 seconds. No peripheral edema. LOWER EXTREMITIES: Scaly skin, dry, skin, stasis dermatitis B/L LE, 2+ pulses, warm, well-perfused. No calf tenderness. B/L pitting edema. NEUROLOGICAL: Cranial nerves II-XII intact. Normal speech. Normal gait. PSYCHIATRIC: Cooperative. Good eye contact. Appropriate mood and affect. SKIN: Warm, dry, normal turgor, no rashes or lesions noted. Laboratory Results - last 24 hr 03/12/16 03/13/16 03/13/16 08:10 06:42 10:00 WBC 14.0 H RBC 3.92 Hgb 10.4 L Hct 32.9 MCV 84.1 MCHC 31.5 L RDW 14.8 Plt Count 283 MPV 10.0 D Neutrophils % 79.8 Lymphocytes % 8.8 Monocytes % 10.0 Eosinophils % 0.4 D Basophils % 1.0 Sodium 139 Potassium 4.7 Chloride 105 Carbon Dioxide 24 Anion Gap 10 BUN 18 D Creatinine 3.5 H Creat Clearance w eGFR POC Glucometer 164 Random Glucose 267 H Calcium 9.0 Phosphorus Total Bilirubin AST ALT Alkaline Phosphatase B-Natriuretic Peptide 79893.61 H Total Protein Albumin Hepatitis C Antibody 03/13/16 03/13/16 10:00 10:00 WBC RBC Hgb Hct MCV MCHC RDW Plt Count MPV Neutrophils % Lymphocytes % Monocytes % Eosinophils % Basophils % Sodium 139 Potassium 4.3 Chloride 103 Carbon Dioxide 25 Anion Gap 11 BUN 22 H D Creatinine 3.7 H Creat Clearance w eGFR 12.26 POC Glucometer Random Glucose 285 H Calcium 8.7 Phosphorus 4.0 Total Bilirubin 0.5 AST 23 ALT 17 D Alkaline Phosphatase 138 H B-Natriuretic Peptide Total Protein 6.5 Albumin 2.6 L Hepatitis C Antibody Cancelled Active Medications Generic Name Dose Route Start Last Admin Trade Name Freq PRN Reason Stop Dose Admin Diltiazem HCl 60 mg 03/12/16 10:15 03/13/16 05:19 Cardizem - PO 60 mg TID EMELINA Administration Dipyridamole/Aspirin 1 combo 03/11/16 22:00 03/12/16 21:57 Aggrenox - PO 1 combo BID EMELINA Administration Ferrous Sulfate 325 mg 03/12/16 08:00 03/13/16 11:33 Feosol - PO Not Given TIDCM EMELINA Furosemide 80 mg 03/12/16 10:00 03/12/16 11:05 Lasix - PO 80 mg DAILY EMELINA Administration Heparin Sodium (Porcine) 5,000 unit 03/11/16 22:00 03/12/16 21:59 Heparin - SQ Not Given BID EMELINA Ceftriaxone Sodium 50 mls @ 100 mls/hr 03/11/16 22:17 03/12/16 12:53 Rocephin 1gm Ivpb (Pre-Docked) IVPB 100 mls/hr DAILY EMELINA Administration Metronidazole 100 mls @ 100 mls/hr 03/12/16 11:15 03/13/16 02:45 Flagyl 500mg Premixed Ivpb - IVPB 100 mls/hr Q8H-IV EMELINA Administration Methimazole 5 mg 03/12/16 10:00 03/12/16 11:18 Tapazole - PO 5 mg DAILY EMELINA Administration 03/11/2016 CXR: No evidence of pneumothorax or pulmonary infiltrates Abd/Pelvis CT: No evidence of acute abdominal or pelvic pathology Small sliding hiatal hernia S/p hysterectomy and appendectomy Lower lung lobes chronic interstitial changes with bronchiectasis. Underlying problems:- 66 year old with significant PMH HTN, DM, ESRD on dialysis (T,Th,Sat), ILD ? cause, anemia, Hepatitis C, SVT of female came in to the ED with the chief complaints of abdominal pain x 2 days. Assessment 1. Sepsis unknown source 2. SVT r/o ACS 3. Increased troponins 4. ESRD on Dialysis 5. ILD ? cause 6. Hepatitis C 7. HTN 8. DM # Sepsis unknown source Patient presented with Tmax 101.6F, HR [id number], abdominal pain, diarrhoea, nausea and vomiting Differential diagnosis:- Acute Gastroenteritis, ischemic bowel Less likely diverticulitis -negative in CT abdomen D/w Dr. Churchill. Empiric treatment started with Ceftriaxone and Metronidazole Stool culture, ova parasites, c diff, PCR Norovirus, Ag for Rotavirus ordered Lactic acid ordered CXR, CT abdomen report mentioned above # Hepatitis C 01/05/2016: Hepatitis C Ab >11 Do not know if she received the treatment Negative for HIV 01/05/2016 Rest as per primary. Illness, Investigation and plan of care explained to the patient. She verbalized understanding. Case seen and examined with Dr. Caldwell Thank you for the consultative opportunity. Visit type - Emergency Visit Emergency Visit: Yes ED Registration Date: 03/11/16 Care time: The patient presented to the Emergency Department on the above date and was hospitalized for further evaluation of their emergent condition. - New Patient This patient is new to me today: No - Critical Care Critical Care patient: No
--- NOTE | 2016-03-13 12:14 | PN ---
Progress Note (short form) - Note Progress Note: Reason for Consultation:: SVT S: + diarrhea, nausea somewhat improved. Feels weak. Currently getting HD. No cp, palps, dizziness, sob. Current Medications Diltiazem HCl (Cardizem -) 60 mg PO TID [facility] Last Admin: 03/13/16 05:19 Dose: 60 mg Dipyridamole/Aspirin (Aggrenox -) 1 combo PO BID [facility] Last Admin: 03/12/16 21:57 Dose: 1 combo Ferrous Sulfate (Feosol -) 325 mg PO TIDCM [facility] Last Admin: 03/13/16 11:33 Dose: Not Given Furosemide (Lasix -) 80 mg PO DAILY [facility] Last Admin: 03/12/16 11:05 Dose: 80 mg Heparin Sodium (Porcine) (Heparin -) 5,000 unit SQ BID [facility] Last Admin: 03/12/16 21:59 Dose: Not Given Ceftriaxone Sodium (Rocephin 1gm Ivpb (Pre-Docked)) 50 mls @ 100 mls/hr IVPB DAILY [facility] Last Admin: 03/12/16 12:53 Dose: 100 mls/hr Metronidazole (Flagyl 500mg Premixed Ivpb -) 100 mls @ 100 mls/hr IVPB Q8H-IV [facility] Last Admin: 03/13/16 02:45 Dose: 100 mls/hr Methimazole (Tapazole -) 5 mg PO DAILY [facility] Last Admin: 03/12/16 11:18 Dose: 5 mg Vital Signs - 24 hr 03/12/16 03/12/16 03/12/16 12:30 14:29 16:30 Temperature 97.9 F Pulse Rate 77 Pulse Rate [ 80 75 Apical] Respiratory 12 24 18 Rate Blood Pressure 150/78 Blood Pressure 128/77 149/89 [Right Arm] O2 Sat by Pulse 99 100 Oximetry (%) 03/12/16 03/12/16 03/12/16 17:15 17:55 21:00 Temperature 97.9 F 98.2 F 98.0 F Pulse Rate 77 78 80 Pulse Rate [ Apical] Respiratory 18 19 20 Rate Blood Pressure 150/78 150/87 160/86 Blood Pressure [Right Arm] O2 Sat by Pulse 100 98 Oximetry (%) 03/13/16 03/13/16 03/13/16 02:41 09:55 10:00 Temperature 98.0 F 98.8 F Pulse Rate 86 90 77 Pulse Rate [ Apical] Respiratory 19 18 18 Rate Blood Pressure 166/98 166/67 163/67 Blood Pressure [Right Arm] O2 Sat by Pulse Oximetry (%) 03/13/16 03/13/16 03/13/16 10:30 11:00 11:30 Temperature Pulse Rate 90 93 H 93 H Pulse Rate [ Apical] Respiratory 18 18 18 Rate Blood Pressure 157/76 163/86 161/93 Blood Pressure [Right Arm] O2 Sat by Pulse Oximetry (%) Intake & Output 03/11/16 03/12/16 03/13/16 03/14/16 07:59 07:59 07:59 07:59 Intake Total 100 Balance 100 Weight 208 lb 208 lb Constitutional: Yes: Well Nourished, No Distress Eyes: No: Sclera Icterus HENT: No: Nasal Congestion Neck: No: Decreased ROM Respiratory: Yes: CTA Bilaterally, but poor effort. No: Accessory Muscle Use, Rales, Wheezes Gastrointestinal: Yes: Normal Bowel Sounds. No: Distention, Hepatomegaly, Palpable Mass, Tenderness Cardiovascular: Yes: Regular Rate and Rhythm JVD: No Carotid Bruit: No PMI: Non-Displaced Heart Sounds: Yes: S1, S2. No: Gallop Murmur: No: Systolic Murmur, Diastolic Murmur Musculoskeletal: Yes: Other (No kyphosis) Extremities: No: Cold, Cyanosis Edema: No Peripheral Pulses: 2+ Left Carotid, 2+ Right Carotid, 2+ Left Doralis Pedis, 2+ Right Dorsalis Pedis Integumentary: No: Jaundice Neurological: Yes: Alert, Oriented (x3) Psychiatric: No: Agitated - Other Data Labs, Other Data: CBC, BMP 03/13/16 10:00 03/13/16 10:00 Laboratory Tests 03/12/16 03/13/16 08:10 10:00 Creatinine 3.5 H Total Bilirubin 0.5 AST 23 ALT 17 D Alkaline Phosphatase 138 H Albumin 2.6 L ekg #1: NSR, LAFB, nonsp TWAs anterior leads, no path q's #2: rapid SVT (short R-P tach), no isch changes #3: NSR, nonsp TWAs anterior leads (new vs 12/17) and lateral leads (unchanged) tele: SR with intermittent episodes of self-limited SVT, likely AVNRT. Imaging - Results Chest X-ray: Report Reviewed (clear lungs/pleura) abd CT without contrast: limited evaluation (non-contrast), R abdominal wall thickening edema (infection vs. trauma), L1 compression fracture. chronic interstitial changes with bronchiectasis in visualized lung bases. Echo 03/12/16: mild LV dilation. Moderately reduced LV fn. Severe apical wall HK. MIld LAE. Mod-sev MR. Mod TR. RVSP 30-40. Echo 12/2015 report: mild dec lvef, global hk, rv tds, mod-sev mr -images reviewed by prior cardiology consult: MR is moderate Echo 04/2015: nl lv/rv/valves Assessment/Plan 66-year-old with h/o prior admissions for sob/respiratory failure, hypertension , CVA 2012 on aggrenox, SVT (new dx on prior admission) with associated new cardiomyopathy (tachymyopathy? vs. stress inducedhad subsequent normalization of function), THN, HL, ESRD on HD, chronic pulmonary disease, GERD, diabetes, thyroid abnormality on methimazole, multiple abd surgeries including hysterectomy and appendectomy presenting with abdominal pain fever and found SVT . fever (101.6 in ER), abd pain, ? septic shock: -CT abd without clear etiology. -defer w/u to pmd +/- ID -BPs low at times in ER-- (unclear if hemodynamically unstable SVT or dropped pressures due to combo of rate control medications and nitropaste). Thought more likely to be from rapid SVTs, as her BPs normalized on conversion to SR. 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 Febrile illness as possible trigger? - no indication for AC for this rhythm - SVTs controlled well here previously with titration of bb and dilt (note: she is much more responsive to diltiazem than metoprolol, but now with signficantly depressed EF) -started on amio overnight in ER-- now on PO diltiazem (currently normal BP). Adding metoprolol 03/13 for breakthrough SVT. - Rpt echo with significant worsening of LVEF. May need EP eval for ablation if thought to have tachymyopathy. Cardiomyopathy - progressive drop in EF over the course of the year. On past admit in december only mildly depressed EF, thought to have contribution from tachymyopathy vs. stress induced. Will likely need ischemic evaluation once stable/infectious issues resolve. - Has improved rate control with diltiazem and so previously have not wanted to use beta louis. Still with breakthrough SVT right now. Will add on metoprolol and consider need to wean diltiazem, now that EF is significantly depressed. - Currently doesn't appear significantly volume overloaded. Currently with possible infection, poor po intake, nausea/diarrhea. Denies missing or shortened HD sessions recently. LE edema significantly improved from last admission. Con't po lasix and volume management per HD/UF/renal. - Will add on HF regimen as bp allows. Mitral regurgitation -vol mgmt primarily via HD/UF, per renal -MR only moderate, not etiologic in chf per Dr. Arriaza's review of last echo, now with worsening of MR on more recent echo. Patient does not seem to be particularly volume overloaded as mentioned above. Will need to review whether worsened MR is from LV dilation vs. ischemic eccentric MR. No signs of valvular decompensation. - strict bp control. elevated troponin: -trop here 0.5 x3, not c/w ACS -likely sec to rapid SVT causing mild Type II OK, vs ESRD pt, vs chronic hi filling pressures/chf -nonspecific TWAs on ekg's here also may be sec to recurrent rapid SVT (? had this as well in [place], causing changes on initial ecg here) -should have nuclear stress test vs. R/LHC to risk-stratify and r/o asymptomatic underlying obstructive CAD, in setting of worsening EF. Would wait until clinically stable from infectious standpoint. (presented with fever and elevated wbc). -she is already on prison ASA (Aggrenox); need to review prior admit notes and LFTs re: ? statin hx--not urgent (prior notes say was stopped for myalgias) . Will add low dose statin today 03/13. -adding beta louis today 03/13. chronic lung dz, ? ILDz: - resp failure during prior admit with pulm infiltrates of unclear etiology, suspected ILDz of ? etiology, clinically improved with empiric steroids trial, open lung bx deferred (bronch was unrevealing) - 12/[address] dilated IVC but only small effusions, with upper lobe infiltrates more c/w PNA than chf (dr devi review: recurrent consolidation in changing locations/distributions in comparison to prior CT, possibly c/w cryptogenic organizing pneumonia/BOOP). HTN -slightly elevated currently. but previous hypotension here ? sepsis, vs ? sec to PSVT. Monitor with addition of metoprolol today. ESRD, on HD: -s/p renal bx last time here c/w DM nephropathy -HD per renal h/o CVA - has been on aggrenox
--- NOTE | 2016-03-13 13:11 | PN ---
Progress Note (short form) - Note Progress Note: Renal follow up for ESRD Pt seen and examined during dialysis BP stable Goal UF 2.5L complains of discomfort in arm with bp cuff in place Gen: NAD, awake and alert HEENT: NC/AT, MMM, No JVD CVS: RRR, No M/R Lungs: CTA no rales or wheeze. Abd: Obese, mild tenderness Ext: No edema, clubbing or cyanosis : no bladder distension Neuro: AAOx3, no focal defects Acetaminophen (Ofirmev Injection -) 1,000 mg IVPB Q6H PRN PRN Reason: FEVER OR PAIN Stop: 03/12/16 15:01 Diltiazem HCl (Cardizem -) 60 mg PO TID [facility] Last Admin: 03/12/16 11:05 Dose: 60 mg Dipyridamole/Aspirin (Aggrenox -) 1 combo PO BID [facility] Last Admin: 03/12/16 11:05 Dose: 1 combo Ferrous Sulfate (Feosol -) 325 mg PO TIDCM [facility] Last Admin: 03/12/16 09:32 Dose: 325 mg Furosemide (Lasix -) 80 mg PO DAILY [facility] Last Admin: 03/12/16 11:05 Dose: 80 mg Heparin Sodium (Porcine) (Heparin -) 5,000 unit SQ BID [facility] Last Admin: 03/12/16 11:28 Dose: Not Given Diltiazem HCl 125 mg/ Dextrose 125 mls @ 5 mls/hr IVPB TITR ONE; 5 MG/HR PRN Reason: Protocol Stop: 03/12/16 20:25 Last Titration: 03/12/16 04:30 Dose: 0 mg/hr Ceftriaxone Sodium (Rocephin 1gm Ivpb (Pre-Docked)) 50 mls @ 100 mls/hr IVPB DAILY [facility] Metronidazole (Flagyl 500mg Premixed Ivpb -) 100 mls @ 100 mls/hr IVPB Q8H-IV EMELINA Methimazole (Tapazole -) 5 mg PO DAILY [facility] Last Admin: 03/12/16 11:18 Dose: 5 mg A/P 66 year old woman with PMhx of ESRD on HD (TTS at [facility]) , Hypertension, DM, Hep C who presented with complaints of Abd pain and loose stools and found to have SVT and fever. #ESRD on HD Tolerating HD well today BP stable and goal UF 2.5L #SVT rate control as per cardiology #Elevated Troponins Stable Tele monitoring Cardiology following #Renal Osteodystrophy Check Phos Vit D analog with Hd #CKD related Anemia Hgb at goal Jon Paz DO
--- NOTE | 2016-03-13 14:21 | PN ---
Teaching Attending Note Name of Resident: Maria De Jesus Shaw ATTENDING PHYSICIAN STATEMENT I saw and evaluated the patient. I reviewed the resident's note and discussed the case with the resident. I agree with the resident's findings and plan as documented. SUBJECTIVE: Reports loose stool x 2 No c/o abdominal pain Temps down Afebrile WBC elevated 14K BC prelim (-) Flu swab (-) OBJECTIVE: Awake, alert Afebrile cor S1S2 Lungs clear Abdomen soft, non tender ASSESSMENT AND PLAN: Acute gastroenteritis Fever/ leukocytosis possible sepsis from GI source Check stool studies Continue empiric ceftriaxone/ flagyl
[2016-03-13] MEDS: HEPARIN NA (PORCINE) 5,000 UNITS/ML 1ML VIAL SQ SCH ×2 (14:28→21:01)
[2016-03-13] MEDS: METHIMAZOLE 5 MG TABLET (FP) PO SCH (14:40)
[2016-03-13] MEDS: FUROSEMIDE 40 MG TABLET (FP) PO SCH (14:40)
[2016-03-13] MEDS: ASPIRIN/DIPYRIDAMOLE 25 MG/200 MG CAPSULE (FP) PO SCH ×2 (14:40→21:02)
[2016-03-13] MEDS: METOPROLOL TARTRATE 25 MG TABLET (FP) PO SCH ×2 (16:43→21:01)
[2016-03-13] MEDS: CEFTRIAXONE 50 ML IVPB SCH (16:43)
--- NOTE | 2016-03-13 18:39 | CONSULT ---
Consult Consult Specialty:: GASTROENTEROLOGY Referred by:: FERNANDO LONGORIA MD Reason for Consultation:: THREE DAYS OF DIARRHEA/ABDOMINL PAIN/FEVER - History of Present Illness Chief Complaint: DIARRHEA/ABDOMINAL PAIN History of Present Illness: 66 YEAR OLD FEMALE WITH ESRD/CHF/ILD/HEP C SEEN LAST ADMISSION AND FAILURE OF HER TO RETURN TO THE OFFICE TO SCHEDULE EGD/COLONOSCOPY. SHE WAS ADMITTED WITH SEPSIS, FEVER, 3 DAYS OF DIARRHEA AND ABDOMINAL PAIN. STATES TODAY HAD 3 LOOSE BM'S WITHOUT BLOOD. DENIES DIFFERENT FOODS, RECENT ANTIBIOTICS, RECENT TRAVEL. STATES HER DAUGHTER HAS A COLD. MISSED DIALYSIS ON SATURDAY BECAUSE SHE WAS WEAK. SHE WAS ADMITTED YESTERDAY. CT SCAN WAS NEGATIVE FOR INTRA ABDOMINAL PATHOLOGY. THERE WAS POSSIBLE INFLAMMATION OF THE INTERNAL AND EXTERNAL [place] MUSCLES ON THE RLQ IN THE AREA SHE STATES SHE WAS HAVING PAIN. 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: CVA (transient speech loss and left hemiparesis in 2012) Cardio/Vascular: Yes: CHF (end diastolic), HTN, Hyperlipdemia Pulmonary: Yes: Asthma, Pneumonia, Other (ILD) Gastrointestinal: Yes: Constipation, GERD Hepatobiliary: Yes: Hepatitis C Renal/: Yes: Renal Failure, Renal Inusuff Musculoskeletal: Yes: Osteoarthritis Endocrine: Yes: Diabetes Mellitus (diabetic retinopathy ( treated ) and neuropathy), Hyperthyroidism (Graves Disease with thyroid nodule), Other ( THYROID DISEASE) - Past Surgical History Past Surgical History: Yes: Appendectomy, Colonoscopy, (C section x 4) , Hysterectomy - Alcohol/Substance Use Hx Alcohol Use: No History of Substance Use: reports: None - Smoking History Smoking history: Never smoked Have you smoked in the past 12 months: No Aproximately how many cigarettes per day: 0 - Social History Usual Living Arrangement: Alone ADL: Independent History of Recent Travel: No Home Medications - Allergies Allergies/Adverse Reactions: Allergies Allergy/AdvReac Type Severity Reaction Status Date / Time nut - unspecified [nut] Allergy Verified 03/11/16 15:12 - Home Medications Home Medications: Ambulatory Orders Aspirin/Dipyridamole [Aggrenox -] 1 combo PO BID 12/23/15 Methimazole 5 mg PO DAILY 12/23/15 Clonidine HCl [Catapres -] 0.1 mg PO TID #0 tablet 01/12/16 Diltiazem Cd [Cardizem Cd -] 120 mg PO DAILY cap.cd.24h 01/12/16 Ferrous Sulfate [Feosol] 325 mg PO TIDCM ud 01/12/16 Furosemide [Lasix -] 80 mg PO DAILY tablet 01/12/16 Metoprolol Succinate [Toprol XL -] 25 mg PO BID tab.sr.24h 01/12/16 Nifedipine ER [Procardia XL -] 60 mg PO BID tab.er.24 01/12/16 Family Disease History - Family Disease History Family Disease History: Diabetes: Mother (alive 91), Brother Review of Systems - Review of Systems Constitutional: reports: Chills, Lethargy, Loss of Appetite, Weakness Eyes: reports: No Symptoms HENT: reports: No Symptoms Neck: reports: No Symptoms Cardiovascular: reports: Chest Pain, Palpitations Respiratory: reports: SOB, SOB on Exertion Gastrointestinal: reports: Abdominal Pain, Diarrhea Musculoskeletal: reports: No Symptoms Neurological: reports: No Symptoms Endocrine: reports: No Symptoms Hematology/Lymphatic: reports: No Symptoms Psychiatric: reports: No Symptoms Physical Exam-GI Vital Signs: Vital Signs Temperature 98.2 F 03/13/16 13:58 Pulse Rate 92 H 03/13/16 13:58 Respiratory Rate 20 03/13/16 13:58 Blood Pressure 167/83 03/13/16 13:58 O2 Sat by Pulse Oximetry (%) 98 03/12/16 21:00 Constitutional: Yes: Obese Eyes: Yes: Conjunctiva Clear HENT: Yes: Normocephalic Neck: Yes: Supple Cardiovascular: Yes: Regular Rate and Rhythm Respiratory: Yes: Diminished, Other (CRAKLES) Gastrointestinal Inspection: Yes: WNL, Other (OBESE) ...Auscultate: Yes: Normoactive Bowel Sounds ...Palpate: Yes: Soft Extremities: Yes: WNL Labs: CBC, BMP 03/13/16 10:00 03/13/16 10:00 INR, PTT INR 1.12 (0.82-1.09) 03/11/16 15:50 Laboratory Tests 03/11/16 03/11/16 03/12/16 15:50 15:50 08:10 WBC RBC Hgb Hct MCV MCHC RDW Plt Count MPV Neutrophils % Lymphocytes % Monocytes % Eosinophils % Basophils % INR 1.12 Sodium Potassium Chloride Carbon Dioxide Anion Gap BUN Creatinine Creat Clearance w eGFR Random Glucose Calcium Phosphorus Total Bilirubin AST ALT Alkaline Phosphatase B-Natriuretic Peptide 20321.03 H 13788.61 H 03/13/16 03/13/16 10:00 10:00 WBC 14.0 H RBC 3.92 Hgb 10.4 L Hct 32.9 MCV 84.1 MCHC 31.5 L RDW 14.8 Plt Count 283 MPV 10.0 D Neutrophils % 79.8 Lymphocytes % 8.8 Monocytes % 10.0 Eosinophils % 0.4 D Basophils % 1.0 INR Sodium 139 Potassium 4.3 Chloride 103 Carbon Dioxide 25 Anion Gap 11 BUN 22 H D Creatinine 3.7 H Creat Clearance w eGFR 12.26 Random Glucose 285 H Calcium 8.7 Phosphorus 4.0 Total Bilirubin 0.5 AST 23 ALT 17 D Alkaline Phosphatase 138 H B-Natriuretic Peptide Imaging - Results Cat Scan: Image Reviewed Problem List - Problems (1) Gastroenteritis Assessment/Plan: SEND STOOLS INCLUDING NOROVIRUS , C DIFF ETC DIARRHEA SEEMING TO SLOW DOWN Code(s): K52.9 - NONINFECTIVE GASTROENTERITIS AND COLITIS, UNSPECIFIED (2) Acute diarrhea Assessment/Plan: ABOVE, HOLD ENDOSCOPIC PROCEDURES DUE TO ACS/SVT Code(s): R19.7 - DIARRHEA, UNSPECIFIED (3) Muscle contusion Assessment/Plan: C/W MUSCLE TRAUMA MADE WORSE DUE TO AC: TREAT SYMPTOMATICALLY Code(s): T14.8 - OTHER INJURY OF UNSPECIFIED BODY REGION (4) History of hepatitis C Code(s): Z86.19 - PERSONAL HISTORY OF OTHER INFECTIOUS AND PARASITIC DISEASES (5) SVT (supraventricular tachycardia) Code(s): I47.1 - SUPRAVENTRICULAR TACHYCARDIA (6) ACS (acute coronary syndrome) Code(s): I24.9 - ACUTE ISCHEMIC HEART DISEASE, UNSPECIFIED (7) Elevated troponin Code(s): R79.89 - OTHER SPECIFIED ABNORMAL FINDINGS OF BLOOD CHEMISTRY (8) End stage renal disease on dialysis Code(s): N18.6 - END STAGE RENAL DISEASE Z99.2 - DEPENDENCE ON RENAL DIALYSIS (9) CVA (cerebral vascular accident) Code(s): I63.9 - CEREBRAL INFARCTION, UNSPECIFIED (10) Diastolic CHF Code(s): I50.30 - UNSPECIFIED DIASTOLIC (CONGESTIVE) HEART FAILURE (11) Hyperthyroidism Code(s): E05.90 - THYROTOXICOSIS, UNSP WITHOUT THYROTOXIC CRISIS OR STORM (12) Interstitial lung disease Code(s): J84.9 - INTERSTITIAL PULMONARY DISEASE, UNSPECIFIED
[2016-03-13] MEDS: ATORVASTATIN CA 10 MG TABLET (FP) PO SCH (21:01)
[2016-03-14] MEDS: METRONIDAZOLE 500 MG PREMIXED 100 ML IVPB SCH ×3 (02:23→17:02)
[2016-03-14] MEDS: METOPROLOL TARTRATE 25 MG TABLET (FP) PO SCH ×3 (06:44→21:31)
[2016-03-14] MEDS: dilTIAZem HCL 60 MG TABLET (FP) PO SCH ×3 (06:44→21:31)
[2016-03-14 07:27] LABS: BASOPHIL 1.2 % (0-2.0); EOSINOPHIL 2.8 % (0-4.5); MCH 26.6 pg (25.7-33.7); MCHC 31.6 g/dl (32.0-36.0); MEAN CELL VOLUME 84.1 fl (80-96); MEAN PLT VOLUME 10.1 fl (7.5-11.1); NEUTROPHILS 66.1 % (42.8-82.8); PLATELET COUNT 215 K/MM3 (134-434); WHITE BLOOD COUNT 11.2 K/mm3 (4.0-10.0)
[2016-03-14 08:25] LABS: ALBUMIN 2.4 g/dl (3.4-5.0); BILIRUBIN,TOTAL 0.6 mg/dL (0.2-1.0); CALCIUM 8.4 mg/dL (8.5-10.1); CREATININE 2.4 mg/dL (0.55-1.02); TOT PROT 6.1 g/dl (6.4-8.2)
[2016-03-14] MEDS: FERROUS SO4 325 MG TABLET (FP) PO SCH ×3 (08:45→17:02)
[2016-03-14] MEDS: ASPIRIN/DIPYRIDAMOLE 25 MG/200 MG CAPSULE (FP) PO SCH ×2 (10:09→21:31)
[2016-03-14] MEDS: METHIMAZOLE 5 MG TABLET (FP) PO SCH (10:09)
[2016-03-14] MEDS: FUROSEMIDE 40 MG TABLET (FP) PO SCH (10:09)
[2016-03-14] MEDS: HEPARIN NA (PORCINE) 5,000 UNITS/ML 1ML VIAL SQ SCH ×2 (10:10→21:31)
[2016-03-14] MEDS: CEFTRIAXONE 50 ML IVPB SCH (10:10)
--- NOTE | 2016-03-14 11:20 | PN ---
Progress Note (short form) - Note Progress Note: S: no further GI sxs, no cp sob palps dizzy o: Vital Signs Period Temp Pulse Resp BP Sys/Chavarria Pulse Ox Last 24 Hr 98 F-98.6 F 70-94 18-20 133-167/66-93 98 Constitutional: Yes: Well Nourished, No Distress Eyes: No: Sclera Icterus Respiratory: Yes: CTA Bilaterally nl eff. No: Accessory Muscle Use, Rales, Wheezes Gastrointestinal: Yes: Normal Bowel Sounds. No: Distention, Hepatomegaly, Palpable Mass, Tenderness Cardiovascular: Yes: Regular Rate and Rhythm JVD: No Heart Sounds: Yes: S1, S2. No: Gallop Murmur: No: Systolic Murmur, Diastolic Murmur Extremities: No: Cold, Cyanosis Edema: No Integumentary: No: Jaundice diaphoresis Neurological: Yes: Alert, Oriented (x3) Psychiatric: No: Agitated Current Medications Generic Name Dose Route Start Last Admin Trade Name Freq PRN Reason Stop Dose Admin Atorvastatin Calcium 10 mg 03/13/16 22:00 03/13/16 21:01 Lipitor - PO 10 mg HS EMELINA Administration Diltiazem HCl 60 mg 03/12/16 10:15 03/14/16 06:44 Cardizem - PO 60 mg TID EMELINA Administration Dipyridamole/Aspirin 1 combo 03/11/16 22:00 03/14/16 10:09 Aggrenox - PO 1 combo BID EMELINA Administration Ferrous Sulfate 325 mg 03/12/16 08:00 03/14/16 08:45 Feosol - PO 325 mg TIDCM EMELINA Administration Furosemide 80 mg 03/12/16 10:00 03/14/16 10:09 Lasix - PO 80 mg DAILY EMELINA Administration Heparin Sodium (Porcine) 5,000 unit 03/11/16 22:00 03/14/16 10:10 Heparin - SQ 5,000 unit BID EMELINA Administration Ceftriaxone Sodium 50 mls @ 100 mls/hr 03/11/16 22:17 03/14/16 10:10 Rocephin 1gm Ivpb (Pre-Docked) IVPB 100 mls/hr DAILY EMELINA Administration Metronidazole 100 mls @ 100 mls/hr 03/12/16 11:15 03/14/16 10:10 Flagyl 500mg Premixed Ivpb - IVPB 100 mls/hr Q8H-IV EMELINA Administration Methimazole 5 mg 03/12/16 10:00 03/14/16 10:09 Tapazole - PO 5 mg DAILY EMELINA Administration Metoprolol Tartrate 25 mg 03/13/16 15:15 03/14/16 06:44 Lopressor - PO 25 mg TID EMELINA Administration CBC, BMP 03/14/16 05:35 03/14/16 05:35 ekg #1: NSR, LAFB, nonsp TWAs anterior leads, no path q's #2: rapid SVT (short R-P tach), no isch changes #3: NSR, nonsp TWAs anterior leads (new vs 12/17) and lateral leads (unchanged) tele: SR with brief episode of self-limited SVT abd CT without contrast: limited evaluation (non-contrast), R abdominal wall thickening edema (infection vs. trauma), L1 compression fracture. chronic interstitial changes with bronchiectasis in visualized lung bases. Echo 03/12/16: mild LV dilation. Moderately reduced LV fn. Severe apical wall HK. MIld LAE. Mod-sev MR. Mod TR. RVSP 30-40. Echo 12/2015 report: mild dec lvef, global hk, rv tds, mod-sev mr -images reviewed by prior cardiology consult: MR is moderate Echo 04/2015: nl lv/rv/valves Assessment/Plan 66-year-old with h/o prior admissions for sob/respiratory failure, hypertension , CVA 2012 on aggrenox, SVT (new dx on prior admission) with associated new cardiomyopathy (tachymyopathy? vs. stress inducedhad subsequent normalization of function), THN, HL, ESRD on HD, chronic pulmonary disease, GERD, diabetes, thyroid abnormality on methimazole, multiple abd surgeries including hysterectomy and appendectomy presenting with abdominal pain fever and found SVT . fever (101.6 in ER), abd pain: -CT abd without clear etiology. -defer w/u to pmd +/- ID -BPs low at times in ER-- (unclear if hemodynamically unstable SVT or dropped pressures due to combo of rate control medications and nitropaste). Thought more likely to be from rapid SVTs, as her BPs normalized on conversion to SR. 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 Febrile illness as possible trigger? - no indication for AC for this rhythm - SVT controlled overnight with titration of bb and dilt (note: she is much more responsive to diltiazem than metoprolol) - cont to monitor on tele Cardiomyopathy - progressive drop in EF over the course of the year. On past admit in december only mildly depressed EF, thought to have contribution from tachymyopathy vs. stress induced. Will likely need ischemic evaluation once stable/infectious issues resolve. - Has improved rate control with diltiazem and so previously have not wanted to use beta louis but here with breakthrough SVT and reduced lvef so have added on metoprolol. Will consider need to wean diltiazem if LVEF remains significantly depressed. - Currently doesn't appear significantly volume overloaded. Currently with possible infection, poor po intake, nausea/diarrhea. Denies missing or shortened HD sessions recently. LE edema significantly improved from last admission. Con't po lasix and volume management per HD/UF/renal. Mitral regurgitation -vol mgmt primarily via HD/UF, per renal -MR only moderate, not etiologic in chf per Dr. Arriaza's review of last echo, now with worsening of MR on more recent echo. Patient does not seem to be particularly volume overloaded as mentioned above. Will need to review whether worsened MR is from LV dilation vs. ischemic eccentric MR. No signs of valvular decompensation. elevated troponin: -trop here 0.5 x3, not c/w ACS -likely sec to rapid SVT causing mild Type II SC, vs ESRD pt, vs chronic hi filling pressures/chf -nonspecific TWAs on ekg's here also may be sec to recurrent rapid SVT (? had this as well in [place], causing changes on initial ecg here) -should have nuclear stress test vs. R/LHC to risk-stratify and r/o asymptomatic underlying obstructive CAD, in setting of worsening EF. Would wait until clinically stable from infectious standpoint. (presented with fever and elevated wbc). -she is already on snf ASA (Aggrenox), statin added here, cont bb chronic lung dz, ? ILDz: - resp failure during prior admit with pulm infiltrates of unclear etiology, suspected ILDz of ? etiology, clinically improved with empiric steroids trial, open lung bx deferred (bronch was unrevealing) - 12/[address] dilated IVC but only small effusions, with upper lobe infiltrates more c/w PNA than chf (dr devi review: recurrent consolidation in changing locations/distributions in comparison to prior CT, possibly c/w cryptogenic organizing pneumonia/BOOP). HTN -cont same meds for now, monitor ESRD, on HD: -s/p renal bx last time here c/w DM nephropathy -HD per renal h/o CVA - has been on aggrenox
--- NOTE | 2016-03-14 11:25 | PN ---
Progress Note, Physician Chief Complaint: in bed feels better but generally weak - Current Medication List Current Medications: Active Medications Atorvastatin Calcium (Lipitor -) 10 mg PO HS [facility] Last Admin: 03/13/16 21:01 Dose: 10 mg Diltiazem HCl (Cardizem -) 60 mg PO TID [facility] Last Admin: 03/14/16 06:44 Dose: 60 mg Dipyridamole/Aspirin (Aggrenox -) 1 combo PO BID [facility] Last Admin: 03/14/16 10:09 Dose: 1 combo Ferrous Sulfate (Feosol -) 325 mg PO TIDCM [facility] Last Admin: 03/14/16 08:45 Dose: 325 mg Furosemide (Lasix -) 80 mg PO DAILY [facility] Last Admin: 03/14/16 10:09 Dose: 80 mg Heparin Sodium (Porcine) (Heparin -) 5,000 unit SQ BID [facility] Last Admin: 03/14/16 10:10 Dose: 5,000 unit Ceftriaxone Sodium (Rocephin 1gm Ivpb (Pre-Docked)) 50 mls @ 100 mls/hr IVPB DAILY [facility] Last Admin: 03/14/16 10:10 Dose: 100 mls/hr Metronidazole (Flagyl 500mg Premixed Ivpb -) 100 mls @ 100 mls/hr IVPB Q8H-IV [facility] Last Admin: 03/14/16 10:10 Dose: 100 mls/hr Methimazole (Tapazole -) 5 mg PO DAILY [facility] Last Admin: 03/14/16 10:09 Dose: 5 mg Metoprolol Tartrate (Lopressor -) 25 mg PO TID [facility] Last Admin: 03/14/16 06:44 Dose: 25 mg - Objective Vital Signs: Vital Signs Temperature 98 F 03/14/16 07:38 Pulse Rate 70 03/14/16 07:38 Respiratory Rate 20 03/14/16 07:38 Blood Pressure 135/72 03/14/16 07:38 O2 Sat by Pulse Oximetry (%) 98 03/13/16 21:00 Constitutional: Yes: No Distress Eyes: Yes: Conjunctiva Clear HENT: Yes: Atraumatic Neck: Yes: Supple Cardiovascular: Yes: Regular Rate and Rhythm Respiratory: Yes: CTA Bilaterally Gastrointestinal: Yes: Soft. No: Distention, Tenderness Genitourinary: No: CVA Tenderness - Left, CVA Tenderness - Right Musculoskeletal: No: Joint Stiffness, Joint Swelling Extremities: No: Cold, Cool Edema: No Peripheral Pulses WNL: Yes Integumentary: No: Rash, Venous Stasis Changes Neurological: Yes: WNL, Alert, Oriented ...Motor Strength: WNL Psychiatric: Yes: WNL, Alert, Oriented. No: Agitated Labs: CBC, BMP 03/14/16 05:35 03/14/16 05:35 INR, PTT INR 1.12 (0.82-1.09) 03/11/16 15:50 - ....Imaging Other: Report Reviewed Assessment/Plan The patient is a 66-year-old woman, accompanied by family, with a significant past medical history of anemia, hypertension, CVA, end-stage renal disease (on hemo-dialysis;TRS), insulin-dependent diabetes mellitus who presents to the emergency department for further evaluation of abdominal pain for 2 days. Patient also notes that she feels lightheaded and thirsty and had N/V/D fever and chills. No fevers, chills, chest pain, cough, back pain. In ER developed SVT 180 started on iv cardizem and iv amiodarone drip but later meds adjusted per cardiology Allergies: None Known Drug Allergies. Nuts. Pats Surgical History: Appendectomy. Caesarian S admit; could be viral gastroenteritis but with pt's comorbidities would cover with ATB per ID HD per renal GI eval, abdomen US did not show intratecal hematoma check stools would continue sq heparin and po aggrenox for now falls pfx decubs pfx prognosis guarded d/w pt and staff pt agreed with plan O2 sat/RA, PT rehab eval
--- NOTE | 2016-03-14 11:29 | PN ---
Teaching Attending Note Name of Resident: Maria De Jesus Shaw ATTENDING PHYSICIAN STATEMENT I saw and evaluated the patient. I reviewed the resident's note and discussed the case with the resident. I agree with the resident's findings and plan as documented. SUBJECTIVE: doing better no abdominal pain no fevers only has bm when she eats now nonbloody OBJECTIVE: Vital Signs Period Temp Pulse Resp BP Sys/Chavarria Pulse Ox Last 24 Hr 98 F-98.6 F 70-94 18-20 133-167/66-93 98 cor-rrr lungs clear abd soft,nt ext no edema CBC, BMP 03/14/16 05:35 03/14/16 05:35 stool studies pending ASSESSMENT AND PLAN: sepsis resolved gastroenteritis- improving f/u stool studies continue rocephin/flagyl
--- NOTE | 2016-03-14 12:21 | PN ---
Progress Note (short form) - Note Progress Note: Renal follow up for ESRD Pt seen and examined at the bedside No acute complaints denies any abd pain or diarrhea s/p dialysis yesterday Vital Signs Temperature 98 F 03/14/16 07:38 Pulse Rate 70 03/14/16 07:38 Respiratory Rate 20 03/14/16 07:38 Blood Pressure 135/72 03/14/16 07:38 O2 Sat by Pulse Oximetry (%) 98 03/13/16 21:00 Intake & Output 03/11/16 03/12/16 03/13/16 03/14/16 23:59 23:59 23:59 23:59 Intake Total 860 210 Balance 860 210 Weight 208 lb 208 lb 211 lb 11.2 oz Gen: NAD, awake and alert CVS: RRR, No M/R Lungs: CTA no rales or wheeze. Abd: Obese, mild tenderness Ext: No edema, clubbing or cyanosis CBC, BMP 03/14/16 05:35 03/14/16 05:35 Current Medications Atorvastatin Calcium (Lipitor -) 10 mg PO HS [facility] Last Admin: 03/13/16 21:01 Dose: 10 mg Diltiazem HCl (Cardizem -) 60 mg PO TID [facility] Last Admin: 03/14/16 06:44 Dose: 60 mg Dipyridamole/Aspirin (Aggrenox -) 1 combo PO BID [facility] Last Admin: 03/14/16 10:09 Dose: 1 combo Ferrous Sulfate (Feosol -) 325 mg PO TIDCM [facility]EL[facility] Last Admin: 03/14/16 12:15 Dose: Not Given Furosemide (Lasix -) 80 mg PO DAILY [facility] Last Admin: 03/14/16 10:09 Dose: 80 mg Heparin Sodium (Porcine) (Heparin -) 5,000 unit SQ BID [facility] Last Admin: 03/14/16 10:10 Dose: 5,000 unit Ceftriaxone Sodium (Rocephin 1gm Ivpb (Pre-Docked)) 50 mls @ 100 mls/hr IVPB DAILY [facility] Last Admin: 03/14/16 10:10 Dose: 100 mls/hr Metronidazole (Flagyl 500mg Premixed Ivpb -) 100 mls @ 100 mls/hr IVPB Q8H-IV [facility] Last Admin: 03/14/16 10:10 Dose: 100 mls/hr Methimazole (Tapazole -) 5 mg PO DAILY [facility] Last Admin: 03/14/16 10:09 Dose: 5 mg Metoprolol Tartrate (Lopressor -) 25 mg PO TID [facility] Last Admin: 03/14/16 06:44 Dose: 25 mg A/P 66 year old woman with PMhx of ESRD on HD (TTS at [facility]) , Hypertension, DM, Hep C who presented with complaints of Abd pain and loose stools and found to have SVT and fever. #ESRD on HD no indication for dialysis today will plan for next treatment tomorrow Vascular Sx consulted to access developing AVF #SVT rate control as per cardiology on metoprolol and cardizem #Renal Osteodystrophy Check Phos Vit D analog with Hd #CKD related Anemia Hgb at goal Jon Paz DO
--- NOTE | 2016-03-14 17:17 | PN ---
Physical Exam: SUBJECTIVE: Patient seen and examined at bed side this morning. Still has non bloody diarrhoea. No acute overnight events. OBJECTIVE: Vital Signs Period Temp Pulse Resp BP Sys/Chavarria Pulse Ox Last 24 Hr 98 F-98.6 F 70-92 18-20 133-154/58-76 95-98 GENERAL: Patient in bed in propped up position, Awake, alert, and fully oriented , in no acute distress. HEAD: Normal with no signs of trauma. EYES: EOM intact, mild pallor +, no icterus. EARS, NOSE, THROAT: Ears normal, moist mucous membranes NECK: Supple, no JVD or mass. LUNGS: Breath sounds equal, clear to auscultation bilaterally. No wheezes, and no crackles. No accessory muscle use. HEART: Tachycardic, visible apical impulse, Regular rate and rhythm, normal S1 and S2, no murmur ABDOMEN: Soft, tenderness over right lower quadrant, normoactive bowel sounds, no guarding, no rebound, no masses. Hepatosplenomegaly couldn't be appreciated due to pain. MUSCULOSKELETAL: Normal range of motion at all joints. No bony deformities or tenderness. No CVA tenderness. UPPER EXTREMITIES: Left AV fistula thrill +, 2+ pulses, warm, well-perfused. No cyanosis. No clubbing. Cap refill <2 seconds. No peripheral edema. LOWER EXTREMITIES: Scaly skin, dry, skin, stasis dermatitis B/L LE, 2+ pulses, warm, well-perfused. No calf tenderness. B/L pitting edema. NEUROLOGICAL: Cranial nerves II-XII intact. Normal speech. Normal gait. PSYCHIATRIC: Cooperative. Good eye contact. Appropriate mood and affect. SKIN: Warm, dry, normal turgor, no rashes or lesions noted. Laboratory Results - last 24 hr 03/13/16 03/13/16 03/14/16 10:00 22:38 05:35 WBC 11.2 H RBC 3.95 Hgb 10.5 L Hct 33.2 MCV 84.1 MCHC 31.6 L RDW 15.0 Plt Count 215 D MPV 10.1 Neutrophils % 66.1 Lymphocytes % 17.6 D Monocytes % 12.3 H Eosinophils % 2.8 D Basophils % 1.2 Sodium Potassium Chloride Carbon Dioxide Anion Gap BUN Creatinine Creat Clearance w eGFR POC Glucometer 191 Random Glucose Calcium Total Bilirubin AST ALT Alkaline Phosphatase Total Protein Albumin Hepatitis A Ab Total Positive Hep Bs Antigen Negative Hep Bs Antibody Non reactive Hep B Core Total Ab Negative Hepatitis C Antibody >11.0 H 03/14/16 03/14/16 05:35 05:47 WBC RBC Hgb Hct MCV MCHC RDW Plt Count MPV Neutrophils % Lymphocytes % Monocytes % Eosinophils % Basophils % Sodium 139 Potassium 3.6 Chloride 100 Carbon Dioxide 29 Anion Gap 10 BUN 10 D Creatinine 2.4 H D Creat Clearance w eGFR 20.20 POC Glucometer 126 Random Glucose 122 H D Calcium 8.4 L Total Bilirubin 0.6 AST 18 D ALT 14 Alkaline Phosphatase 125 H Total Protein 6.1 L Albumin 2.4 L Hepatitis A Ab Total Hep Bs Antigen Hep Bs Antibody Hep B Core Total Ab Hepatitis C Antibody Active Medications Generic Name Dose Route Start Last Admin Trade Name Freq PRN Reason Stop Dose Admin Atorvastatin Calcium 10 mg 03/13/16 22:00 03/13/16 21:01 Lipitor - PO 10 mg HS EMELINA Administration Diltiazem HCl 60 mg 03/12/16 10:15 03/14/16 15:06 Cardizem - PO 60 mg TID EMELINA Administration Dipyridamole/Aspirin 1 combo 03/11/16 22:00 03/14/16 10:09 Aggrenox - PO 1 combo BID EMELINA Administration Ferrous Sulfate 325 mg 03/12/16 08:00 03/14/16 17:02 Feosol - PO 325 mg TIDCM EMELINA Administration Furosemide 80 mg 03/12/16 10:00 03/14/16 10:09 Lasix - PO 80 mg DAILY EMELINA Administration Heparin Sodium (Porcine) 5,000 unit 03/11/16 22:00 03/14/16 10:10 Heparin - SQ 5,000 unit BID EMELINA Administration Metronidazole 100 mls @ 100 mls/hr 03/12/16 11:15 03/14/16 17:02 Flagyl 500mg Premixed Ivpb - IVPB 100 mls/hr Q8H-IV EMELINA Administration Methimazole 5 mg 03/12/16 10:00 03/14/16 10:09 Tapazole - PO 5 mg DAILY EMELINA Administration Metoprolol Tartrate 25 mg 03/13/16 15:15 03/14/16 15:06 Lopressor - PO 25 mg TID EMELINA Administration Paricalcitol 2 mcg 03/15/16 06:00 Zemplar - IVPUSH 03/15/16 06:01 ONCE ONE 03/11/2016 CXR: No evidence of pneumothorax or pulmonary infiltrates Abd/Pelvis CT: No evidence of acute abdominal or pelvic pathology Small sliding hiatal hernia S/p hysterectomy and appendectomy Lower lung lobes chronic interstitial changes with bronchiectasis. Underlying problems:- 66 year old with significant PMH HTN, DM, ESRD on dialysis (T,Th,Sat), ILD ? cause, anemia, Hepatitis C, SVT of female came in to the ED with the chief complaints of abdominal pain x 2 days. Assessment 1. Sepsis unknown source 2. SVT r/o ACS 3. Increased troponins 4. ESRD on Dialysis 5. ILD ? cause 6. Hepatitis C 7. HTN 8. DM # Sepsis unknown source-resolved Patient presented with Tmax 101.6F, HR [id number], abdominal pain, diarrhoea, nausea and vomiting Differential diagnosis:- Acute Gastroenteritis- Improving, ischemic bowel Less likely diverticulitis -negative in CT abdomen D/w Dr. Churchill. Empiric treatment started with Ceftriaxone and Metronidazole Stool culture, ova parasites, c diff, PCR Norovirus, Ag for Rotavirus ordered Lactic acid ordered CXR, CT abdomen report mentioned above # Hepatitis C 01/05/2016: Hepatitis C Ab >11 Do not know if she received the treatment Negative for HIV 01/05/2016 Rest as per primary. Illness, Investigation and plan of care explained to the patient. She verbalized understanding. Case discussed. with Dr. Wharton. Thank you for the consultative opportunity. Visit type - Emergency Visit Emergency Visit: Yes ED Registration Date: 03/11/16 Care time: The patient presented to the Emergency Department on the above date and was hospitalized for further evaluation of their emergent condition. - New Patient This patient is new to me today: No - Critical Care Critical Care patient: No
[2016-03-14] MEDS: ATORVASTATIN CA 10 MG TABLET (FP) PO SCH (21:31)
[2016-03-15 00:07] LABS: HEP B SURFACE AB Non Reactive (.)
[2016-03-15] MEDS: METRONIDAZOLE 500 MG PREMIXED 100 ML IVPB SCH ×3 (02:50→17:01)
[2016-03-15] MEDS: METOPROLOL TARTRATE 25 MG TABLET (FP) PO SCH (06:31)
[2016-03-15] MEDS: dilTIAZem HCL 60 MG TABLET (FP) PO SCH ×3 (06:31→22:20)
[2016-03-15 09:43] LABS: MCH 26.6 pg (25.7-33.7); MCHC 31.7 g/dl (32.0-36.0); MEAN CELL VOLUME 83.9 fl (80-96); MEAN PLT VOLUME 9.9 fl (7.5-11.1); PLATELET COUNT 285 K/MM3 (134-434); RDW 14.8 % (11.6-15.6)
[2016-03-15] MEDS: FERROUS SO4 325 MG TABLET (FP) PO SCH ×4 (09:44→17:02)
[2016-03-15] MEDS ORDERED: PARICALCITOL 5 MCG/ML VIAL IVPUSH ONE (10:00)
[2016-03-15 10:13] LABS: CALCIUM 8.5 mg/dL (8.5-10.1); CREATININE 2.9 mg/dL (0.55-1.02); PHOSPHOROUS 2.8 mg/dL (2.5-4.9)
--- NOTE | 2016-03-15 10:24 | PN ---
Progress Note (short form) - Note Progress Note: S: no further GI sxs, no cp sob palps; had brief dizzy with svt yesterday, no hypotension o: Vital Signs Period Temp Pulse Resp BP Sys/Chavarria Pulse Ox Last 24 Hr 97.8 F-98.6 F 68-103 18-20 130-154/58-94 95 Constitutional: Yes: Well Nourished, No Distress Eyes: No: Sclera Icterus Respiratory: Yes: CTA Bilaterally nl eff. No: Accessory Muscle Use, Rales, Wheezes Gastrointestinal: Yes: Normal Bowel Sounds. No: Distention, Hepatomegaly, Palpable Mass, Tenderness Cardiovascular: Yes: Regular Rate and Rhythm JVD: No Heart Sounds: Yes: S1, S2. No: Gallop Murmur: No: Systolic Murmur, Diastolic Murmur Extremities: No: Cold, Cyanosis Edema: No Integumentary: No: Jaundice diaphoresis Neurological: Yes: Alert, Oriented (x3) Psychiatric: No: Agitated Current Medications Generic Name Dose Route Start Last Admin Trade Name Danny PRN Reason Stop Dose Admin Atorvastatin Calcium 10 mg 03/13/16 22:00 03/14/16 21:31 Lipitor - PO 10 mg HS EMELINA Administration Diltiazem HCl 60 mg 03/12/16 10:15 03/15/16 06:31 Cardizem - PO 60 mg TID EMELINA Administration Dipyridamole/Aspirin 1 combo 03/11/16 22:00 03/14/16 21:31 Aggrenox - PO 1 combo BID EMELINA Administration Ferrous Sulfate 325 mg 03/12/16 08:00 03/15/16 09:44 Feosol - PO Not Given TIDCM EMELINA Furosemide 80 mg 03/12/16 10:00 03/14/16 10:09 Lasix - PO 80 mg DAILY EMELINA Administration Heparin Sodium (Porcine) 5,000 unit 03/11/16 22:00 03/14/16 21:31 Heparin - SQ 5,000 unit BID EMELINA Administration Metronidazole 100 mls @ 100 mls/hr 03/12/16 11:15 03/15/16 02:50 Flagyl 500mg Premixed Ivpb - IVPB 100 mls/hr Q8H-IV EMELINA Administration Methimazole 5 mg 03/12/16 10:00 03/14/16 10:09 Tapazole - PO 5 mg DAILY EMELINA Administration Metoprolol Succinate 50 mg 03/15/16 10:30 Toprol Xl - PO BID EMELINA CBC, BMP 03/15/16 09:00 ekg #1: NSR, LAFB, nonsp TWAs anterior leads, no path q's #2: rapid SVT (short R-P tach), no isch changes #3: NSR, nonsp TWAs anterior leads (new vs 12/17) and lateral leads (unchanged) tele: SR with brief episode of self-limited SVT abd CT without contrast: limited evaluation (non-contrast), R abdominal wall thickening edema (infection vs. trauma), L1 compression fracture. chronic interstitial changes with bronchiectasis in visualized lung bases. Echo 03/12/16: mild LV dilation. Moderately reduced LV fn. Severe apical wall HK. MIld LAE. Mod-sev MR. Mod TR. RVSP 30-40. Echo 12/2015 report: mild dec lvef, global hk, rv tds, mod-sev mr -images reviewed by prior cardiology consult: MR is moderate Echo 04/2015: nl lv/rv/valves Assessment/Plan 66-year-old with h/o prior admissions for sob/respiratory failure, hypertension , CVA 2012 on aggrenox, SVT (new dx on prior admission) with associated new cardiomyopathy (tachymyopathy? vs. stress inducedhad subsequent normalization of function), THN, HL, ESRD on HD, chronic pulmonary disease, GERD, diabetes, thyroid abnormality on methimazole, multiple abd surgeries including hysterectomy and appendectomy presenting with abdominal pain fever and found SVT . fever (101.6 in ER), abd pain: -CT abd without clear etiology. 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 Febrile illness as possible trigger? - no indication for AC for this rhythm - SVT controlled better but still brief episodes occurring so will increase bb to toprol 50 bid and cont dilt (note: she is much more responsive to diltiazem than metoprolol but given her reduced lvef trying to avoid increasing dilt if possible) - cont to monitor on tele Cardiomyopathy - progressive drop in EF over the course of the year. On past admit in december only mildly depressed EF, thought to have contribution from tachymyopathy vs. stress induced. Will likely need ischemic evaluation once stable/infectious issues resolve. - Has improved rate control with diltiazem and so previously have not wanted to use beta louis but here with breakthrough SVT and reduced lvef so have added on metoprolol. Will consider need to wean diltiazem if LVEF remains significantly depressed. - Currently doesn't appear significantly volume overloaded. Currently with possible infection, poor po intake, nausea/diarrhea. Denies missing or shortened HD sessions recently. LE edema significantly improved from last admission. Con't po lasix and volume management per HD/UF/renal. Mitral regurgitation -vol mgmt primarily via HD/UF, per renal -MR only moderate, not etiologic in chf per Dr. Arriaza's review of last echo, now with worsening of MR on more recent echo. Patient does not seem to be particularly volume overloaded as mentioned above. Will need to review whether worsened MR is from LV dilation vs. ischemic eccentric MR. No signs of valvular decompensation. elevated troponin: -trop here 0.5 x3, not c/w ACS -likely sec to rapid SVT causing mild Type II WA, vs ESRD pt, vs chronic hi filling pressures/chf -nonspecific TWAs on ekg's here also may be sec to recurrent rapid SVT (? had this as well in [place], causing changes on initial ecg here) -should have nuclear stress test vs. R/LHC to risk-stratify and r/o asymptomatic underlying obstructive CAD, in setting of worsening EF. Would wait until clinically stable from infectious standpoint. (presented with fever and elevated wbc). -she is already on halfway ASA (Aggrenox), statin added here, cont bb chronic lung dz, ? ILDz: - resp failure during prior admit with pulm infiltrates of unclear etiology, suspected ILDz of ? etiology, clinically improved with empiric steroids trial, open lung bx deferred (bronch was unrevealing) - 12/[address] dilated IVC but only small effusions, with upper lobe infiltrates more c/w PNA than chf (dr devi review: recurrent consolidation in changing locations/distributions in comparison to prior CT, possibly c/w cryptogenic organizing pneumonia/BOOP). HTN -cont same meds for now, monitor ESRD, on HD: -s/p renal bx last time here c/w DM nephropathy -HD per renal h/o CVA - has been on aggrenox
--- NOTE | 2016-03-15 11:10 | EKG ---
Test Reason : Blood Pressure : / mmHG Vent. Rate : 182 BPM Atrial Rate : 182 BPM P-R Int : 000 ms QRS Dur : 124 ms QT Int : 258 ms P-R-T Axes : 000 -16 114 degrees QTc Int : 448 ms SUPRAVENTRICULAR TACHYCARDIA LEFT VENTRICULAR HYPERTROPHY WITH QRS WIDENING ABNORMAL QRS-T ANGLE, CONSIDER PRIMARY T WAVE ABNORMALITY ABNORMAL ECG WHEN COMPARED WITH ECG OF 11-MAR-2016 16:30, WIDE QRS TACHYCARDIA HAS REPLACED SINUS RHYTHM VENT. RATE HAS INCREASED BY 64 BPM Confirmed by NIKI PERDOMO MD ([id number]) on 03/15/2016 11:10:08 AM Referred By: Confirmed By:NIKI PERDOMO MD
--- NOTE | 2016-03-15 11:15 | EKG ---
Test Reason : Blood Pressure : / mmHG Vent. Rate : 088 BPM Atrial Rate : 088 BPM P-R Int : 198 ms QRS Dur : 086 ms QT Int : 420 ms P-R-T Axes : 060 -21 093 degrees QTc Int : 508 ms SINUS RHYTHM WITH OCCASIONAL PREMATURE VENTRICULAR COMPLEXES AND PREMATURE ATRIAL COMPLEXES POSSIBLE LEFT ATRIAL ENLARGEMENT LEFT VENTRICULAR HYPERTROPHY T WAVE ABNORMALITY, CONSIDER ANTERIOR ISCHEMIA PROLONGED QT ABNORMAL ECG WHEN COMPARED WITH ECG OF 11-MAR-2016 18:06, PREMATURE VENTRICULAR COMPLEXES ARE NOW PRESENT Confirmed by NIKI PERDOMO MD ([id number]) on 03/15/2016 11:14:27 AM Referred By: Confirmed By:NIKI PERDOMO MD
[2016-03-15] MEDS: FUROSEMIDE 40 MG TABLET (FP) PO SCH (12:24)
[2016-03-15] MEDS: ASPIRIN/DIPYRIDAMOLE 25 MG/200 MG CAPSULE (FP) PO SCH ×2 (12:24→22:20)
[2016-03-15] MEDS: HEPARIN NA (PORCINE) 5,000 UNITS/ML 1ML VIAL SQ SCH ×2 (12:25→22:20)
[2016-03-15] MEDS: METHIMAZOLE 5 MG TABLET (FP) PO SCH (12:25)
[2016-03-15] MEDS: METOPROLOL SUCCINATE 50 MG TAB.SR.24H (FP) PO SCH ×2 (12:25→22:20)
--- NOTE | 2016-03-15 15:47 | PN ---
Physical Exam: SUBJECTIVE: Patient seen and examined at bed side this morning. [place] dizzy after dialysis today, didn't lose consciousness. Had 2 bowel movements today, non bloody, scanty in amount. OBJECTIVE: Vital Signs Period Temp Pulse Resp BP Sys/Chavarria Pulse Ox Last 24 Hr 97.8 F-98.6 F 58-103 16-20 115-189/57-94 96 GENERAL: Patient in bed in propped up position, Awake, alert, and fully oriented , in no acute distress. HEAD: Normal with no signs of trauma. EYES: EOM intact, mild pallor +, no icterus. EARS, NOSE, THROAT: Ears normal, moist mucous membranes NECK: Supple, no JVD or mass. LUNGS: Breath sounds equal, clear to auscultation bilaterally. No wheezes, and no crackles. No accessory muscle use. HEART: Tachycardic, visible apical impulse, Regular rate and rhythm, normal S1 and S2, no murmur ABDOMEN: Soft, tenderness over right lower quadrant, normoactive bowel sounds, no guarding, no rebound, no masses. Hepatosplenomegaly couldn't be appreciated due to pain. MUSCULOSKELETAL: Normal range of motion at all joints. No bony deformities or tenderness. No CVA tenderness. UPPER EXTREMITIES: Left AV fistula thrill +, 2+ pulses, warm, well-perfused. No cyanosis. No clubbing. Cap refill <2 seconds. No peripheral edema. LOWER EXTREMITIES: Scaly skin, dry, skin, stasis dermatitis B/L LE, 2+ pulses, warm, well-perfused. No calf tenderness. B/L pitting edema. NEUROLOGICAL: Cranial nerves II-XII intact. Normal speech. Normal gait. PSYCHIATRIC: Cooperative. Good eye contact. Appropriate mood and affect. SKIN: Warm, dry, normal turgor, no rashes or lesions noted. Laboratory Results - last 24 hr 03/13/16 03/14/16 03/15/16 10:00 21:42 06:25 WBC RBC Hgb Hct MCV MCHC RDW Plt Count MPV Sodium Potassium Chloride Carbon Dioxide Anion Gap BUN Creatinine POC Glucometer 165 112 Random Glucose Calcium Phosphorus Hepatitis A IgM Ab Negative Hepatitis A Ab Total Positive H Hep Bs Antigen Negative Hep Bs Antibody Non reactive Hep B Core Total Ab Negative 03/15/16 03/15/16 09:00 09:00 WBC 10.0 RBC 4.11 Hgb 11.0 Hct 34.5 MCV 83.9 MCHC 31.7 L RDW 14.8 Plt Count 285 D MPV 9.9 Sodium 139 Potassium 3.5 Chloride 100 Carbon Dioxide 30 Anion Gap 9 BUN 12 Creatinine 2.9 H D POC Glucometer Random Glucose 185 H D Calcium 8.5 Phosphorus 2.8 D Hepatitis A IgM Ab Hepatitis A Ab Total Hep Bs Antigen Hep Bs Antibody Hep B Core Total Ab Active Medications Generic Name Dose Route Start Last Admin Trade Name Danny PRN Reason Stop Dose Admin Atorvastatin Calcium 10 mg 03/13/16 22:00 03/14/16 21:31 Lipitor - PO 10 mg HS EMELINA Administration Diltiazem HCl 60 mg 03/12/16 10:15 03/15/16 14:57 Cardizem - PO 60 mg TID EMELINA Administration Dipyridamole/Aspirin 1 combo 03/11/16 22:00 03/15/16 12:24 Aggrenox - PO 1 combo BID EMELINA Administration Ferrous Sulfate 325 mg 03/12/16 08:00 03/15/16 12:25 Feosol - PO 325 mg TIDCM EMELINA Administration Furosemide 80 mg 03/12/16 10:00 03/15/16 12:24 Lasix - PO 80 mg DAILY EMELINA Administration Heparin Sodium (Porcine) 5,000 unit 03/11/16 22:00 03/15/16 12:25 Heparin - SQ 5,000 unit BID EMELINA Administration Metronidazole 100 mls @ 100 mls/hr 03/12/16 11:15 03/15/16 12:25 Flagyl 500mg Premixed Ivpb - IVPB 100 mls/hr Q8H-IV EMELINA Administration Methimazole 5 mg 03/12/16 10:00 03/15/16 12:25 Tapazole - PO 5 mg DAILY EMELINA Administration Metoprolol Succinate 50 mg 03/15/16 10:30 03/15/16 12:25 Toprol Xl - PO 50 mg BID EMELINA Administration 03/11/2016 CXR: No evidence of pneumothorax or pulmonary infiltrates Abd/Pelvis CT: No evidence of acute abdominal or pelvic pathology Small sliding hiatal hernia S/p hysterectomy and appendectomy Lower lung lobes chronic interstitial changes with bronchiectasis. Underlying problems:- 66 year old with significant PMH HTN, DM, ESRD on dialysis (T,Th,Sat), ILD ? cause, anemia, Hepatitis C, SVT of female came in to the ED with the chief complaints of abdominal pain x 2 days. Assessment 1. Sepsis most likely due to C. diff infection 2. SVT r/o ACS 3. Increased troponins 4. ESRD on Dialysis 5. ILD ? cause 6. Hepatitis C 7. HTN 8. DM # Sepsis most likely c. diff infection- resolving Patient presented with Tmax 101.6F, HR [id number], abdominal pain, diarrhoea, nausea and vomiting C diff antigen positive, toxins negative Less likely diverticulitis -negative in CT abdomen D/w Dr. Churchill. IV Metronidazole Q8H continued IV ceftriaxone stopped Stool culture, ova parasites, PCR Norovirus, Ag for Rotavirus -Negative. No Lactic acidosis CXR, CT abdomen report mentioned above # Hepatitis C 01/05/2016: Hepatitis C Ab >11 Do not know if she received the treatment Negative for HIV 01/05/2016 Rest as per primary. Illness, Investigation and plan of care explained to the patient. She verbalized understanding. Case seen and discussed with Dr. Caldwell. Thank you for the consultative opportunity. Visit type - Emergency Visit Emergency Visit: Yes ED Registration Date: 03/11/16 Care time: The patient presented to the Emergency Department on the above date and was hospitalized for further evaluation of their emergent condition. - New Patient This patient is new to me today: No - Critical Care Critical Care patient: No
--- NOTE | 2016-03-15 15:51 | PN ---
Progress Note, Physician History of Present Illness: less diarrhea, general weakness but does not want to go to SNF - Current Medication List Current Medications: Active Medications Atorvastatin Calcium (Lipitor -) 10 mg PO HS [facility] Last Admin: 03/14/16 21:31 Dose: 10 mg Diltiazem HCl (Cardizem -) 60 mg PO TID [facility] Last Admin: 03/15/16 14:57 Dose: 60 mg Dipyridamole/Aspirin (Aggrenox -) 1 combo PO BID [facility] Last Admin: 03/15/16 12:24 Dose: 1 combo Ferrous Sulfate (Feosol -) 325 mg PO TIDCM [facility] Last Admin: 03/15/16 12:25 Dose: 325 mg Furosemide (Lasix -) 80 mg PO DAILY [facility] Last Admin: 03/15/16 12:24 Dose: 80 mg Heparin Sodium (Porcine) (Heparin -) 5,000 unit SQ BID [facility] Last Admin: 03/15/16 12:25 Dose: 5,000 unit Metronidazole (Flagyl 500mg Premixed Ivpb -) 100 mls @ 100 mls/hr IVPB Q8H-IV [facility] Last Admin: 03/15/16 12:25 Dose: 100 mls/hr Methimazole (Tapazole -) 5 mg PO DAILY [facility] Last Admin: 03/15/16 12:25 Dose: 5 mg Metoprolol Succinate (Toprol Xl -) 50 mg PO BID [facility] Last Admin: 03/15/16 12:25 Dose: 50 mg - Objective Vital Signs: Vital Signs Temperature 97.9 F 03/15/16 08:15 Pulse Rate 87 03/15/16 14:53 Respiratory Rate 20 03/15/16 14:53 Blood Pressure 115/57 03/15/16 14:53 O2 Sat by Pulse Oximetry (%) 96 03/15/16 08:00 Constitutional: Yes: No Distress Eyes: Yes: Conjunctiva Clear HENT: Yes: Atraumatic Neck: Yes: Supple Cardiovascular: Yes: Regular Rate and Rhythm Respiratory: Yes: CTA Bilaterally Gastrointestinal: Yes: Soft. No: Distention, Tenderness Genitourinary: No: CVA Tenderness - Left, CVA Tenderness - Right Musculoskeletal: No: Joint Stiffness, Joint Swelling Extremities: No: Cold, Cool Edema: No Peripheral Pulses WNL: Yes Integumentary: No: Rash, Venous Stasis Changes Neurological: Yes: WNL, Alert, Oriented, Weakness (general) ...Motor Strength: WNL Labs: CBC, BMP 03/15/16 09:00 03/15/16 09:00 INR, PTT INR 1.12 (0.82-1.09) 03/11/16 15:50 - ....Imaging Other: Report Reviewed Assessment/Plan The patient is a 66-year-old woman, accompanied by family, with a significant past medical history of anemia, hypertension, CVA, end-stage renal disease (on hemo-dialysis;TRS), insulin-dependent diabetes mellitus who presents to the emergency department for further evaluation of abdominal pain for 2 days. Patient also notes that she feels lightheaded and thirsty and had N/V/D fever and chills. No fevers, chills, chest pain, cough, back pain. In ER developed SVT 180 started on iv cardizem and iv amiodarone drip but later meds adjusted per cardiology Allergies: None Known Drug Allergies. Nuts. Pats Surgical History: Appendectomy. Caesarian S admit; CDiff colitis cover with ATB per ID HD per renal PT rehab check stools would continue sq heparin and po aggrenox for now falls pfx decubs pfx prognosis guarded d/w pt and staff pt agreed with plan O2 sat/RA, PT rehab eval
--- NOTE | 2016-03-15 18:15 | PN ---
Progress Note (short form) - Note Progress Note: Renal follow up for ESRD Pt seen and examined with dialysis earlier today tolerated HD well BP stable Catheter with good function pt without any acute complaints Vital Signs Temperature 98.2 F 03/15/16 17:00 Pulse Rate 67 03/15/16 17:00 Respiratory Rate 20 03/15/16 17:00 Blood Pressure 134/76 03/15/16 17:00 O2 Sat by Pulse Oximetry (%) 96 03/15/16 08:00 Intake & Output 03/12/16 03/13/16 03/14/16 03/15/16 23:59 23:59 23:59 23:59 Intake Total 860 510 800 Balance 860 510 800 Weight 208 lb 211 lb 11.2 oz 214 lb Gen: NAD, awake and alert CVS: RRR, No M/R Lungs: CTA no rales or wheeze. Abd: Obese, mild tenderness Ext: No edema, clubbing or cyanosis CBC, BMP 03/15/16 09:00 03/15/16 09:00 Current Medications Atorvastatin Calcium (Lipitor -) 10 mg PO HS [facility] Last Admin: 03/14/16 21:31 Dose: 10 mg Diltiazem HCl (Cardizem -) 60 mg PO TID [facility] Last Admin: 03/15/16 14:57 Dose: 60 mg Dipyridamole/Aspirin (Aggrenox -) 1 combo PO BID [facility] Last Admin: 03/15/16 12:24 Dose: 1 combo Ferrous Sulfate (Feosol -) 325 mg PO TIDCM [facility] Last Admin: 03/15/16 17:02 Dose: Not Given Furosemide (Lasix -) 80 mg PO DAILY [facility] Last Admin: 03/15/16 12:24 Dose: 80 mg Heparin Sodium (Porcine) (Heparin -) 5,000 unit SQ BID [facility] Last Admin: 03/15/16 12:25 Dose: 5,000 unit Metronidazole (Flagyl 500mg Premixed Ivpb -) 100 mls @ 100 mls/hr IVPB Q8H-IV [facility] Last Admin: 03/15/16 17:01 Dose: 100 mls/hr Methimazole (Tapazole -) 5 mg PO DAILY [facility] Last Admin: 03/15/16 12:25 Dose: 5 mg Metoprolol Succinate (Toprol Xl -) 50 mg PO BID [facility] Last Admin: 03/15/16 12:25 Dose: 50 mg A/P 66 year old woman with PMhx of ESRD on HD (TTS at [facility]) , Hypertension, DM, Hep C who presented with complaints of Abd pain and loose stools and found to have SVT and fever. #ESRD on HD tolerated HD well today Will maintain on TTS schedule dose all meds for intermittent HD Vascular Sx follow up for developing AVF #SVT rate control as per cardiology on metoprolol and cardizem #Renal Osteodystrophy Check Phos Vit D analog with Hd #CKD related Anemia Hgb at goal Jon Paz DO
--- NOTE | 2016-03-15 19:38 | PN ---
Teaching Attending Note Name of Resident: Maria De Jesus Shaw ATTENDING PHYSICIAN STATEMENT I saw and evaluated the patient. I reviewed the resident's note and discussed the case with the resident. I agree with the resident's findings and plan as documented. SUBJECTIVE: OBJECTIVE: ASSESSMENT AND PLAN: C difficile colitis- improved Fever/ leukocytosis- resolved ESRD Continue po flagyl. Complete 10-14d course
[2016-03-15] MEDS: ATORVASTATIN CA 10 MG TABLET (FP) PO SCH (22:20)
[2016-03-16] MEDS: METRONIDAZOLE 500 MG PREMIXED 100 ML IVPB SCH ×2 (02:40→09:52)
[2016-03-16] MEDS: dilTIAZem HCL 60 MG TABLET (FP) PO SCH ×3 (06:20→22:12)
[2016-03-16] MEDS: FERROUS SO4 325 MG TABLET (FP) PO SCH ×3 (08:40→16:43)
[2016-03-16] MEDS: HEPARIN NA (PORCINE) 5,000 UNITS/ML 1ML VIAL SQ SCH ×2 (09:52→22:12)
[2016-03-16] MEDS: ASPIRIN/DIPYRIDAMOLE 25 MG/200 MG CAPSULE (FP) PO SCH ×2 (09:52→22:12)
[2016-03-16] MEDS: FUROSEMIDE 40 MG TABLET (FP) PO SCH (09:52)
[2016-03-16] MEDS: METOPROLOL SUCCINATE 50 MG TAB.SR.24H (FP) PO SCH ×2 (09:52→22:13)
[2016-03-16] MEDS: METHIMAZOLE 5 MG TABLET (FP) PO SCH (09:52)
[2016-03-16 10:12] LABS: HCV LOG 10 6.189 (.)
--- NOTE | 2016-03-16 11:55 | PN ---
Progress Note (short form) - Note Progress Note: S: no cp sob palps; improved dizziness o: Vital Signs Period Temp Pulse Resp BP Sys/Chavarria Pulse Ox Last 24 Hr 98.2 F-98.7 F 61-87 18-22 115-169/57-85 98-99 Constitutional: Yes: Well Nourished, No Distress Eyes: No: Sclera Icterus Respiratory: Yes: CTA Bilaterally nl eff. No: Accessory Muscle Use, Rales, Wheezes Gastrointestinal: Yes: Normal Bowel Sounds. No: Distention, Hepatomegaly, Palpable Mass, Tenderness Cardiovascular: Yes: Regular Rate and Rhythm JVD: No Heart Sounds: Yes: S1, S2. No: Gallop Murmur: No: Systolic Murmur, Diastolic Murmur Extremities: No: Cold, Cyanosis Edema: No Integumentary: No: Jaundice diaphoresis Neurological: Yes: Alert, Oriented (x3) Psychiatric: No: Agitated Current Medications Generic Name Dose Route Start Last Admin Trade Name Freq PRN Reason Stop Dose Admin Atorvastatin Calcium 10 mg 03/13/16 22:00 03/15/16 22:20 Lipitor - PO 10 mg HS EMELINA Administration Diltiazem HCl 60 mg 03/12/16 10:15 03/16/16 06:20 Cardizem - PO 60 mg TID EMELINA Administration Dipyridamole/Aspirin 1 combo 03/11/16 22:00 03/16/16 09:52 Aggrenox - PO 1 combo BID EMELINA Administration Ferrous Sulfate 325 mg 03/12/16 08:00 03/16/16 11:26 Feosol - PO 325 mg TIDCM EMELINA Administration Furosemide 80 mg 03/12/16 10:00 03/16/16 09:52 Lasix - PO 80 mg DAILY EMELINA Administration Heparin Sodium (Porcine) 5,000 unit 03/11/16 22:00 03/16/16 09:52 Heparin - SQ 5,000 unit BID EMELINA Administration Metronidazole 100 mls @ 100 mls/hr 03/12/16 11:15 03/16/16 09:52 Flagyl 500mg Premixed Ivpb - IVPB 100 mls/hr Q8H-IV EMELINA Administration Methimazole 5 mg 03/12/16 10:00 03/16/16 09:52 Tapazole - PO 5 mg DAILY EMELINA Administration Metoprolol Succinate 50 mg 03/15/16 10:30 03/16/16 09:52 Toprol Xl - PO 50 mg BID EMELINA Administration CBC, BMP 03/15/16 09:00 03/15/16 09:00 ekg #1: NSR, LAFB, nonsp TWAs anterior leads, no path q's #2: rapid SVT (short R-P tach), no isch changes #3: NSR, nonsp TWAs anterior leads (new vs 12/17) and lateral leads (unchanged) tele: SR with one brief episode of self-limited SVT abd CT without contrast: limited evaluation (non-contrast), R abdominal wall thickening edema (infection vs. trauma), L1 compression fracture. chronic interstitial changes with bronchiectasis in visualized lung bases. Echo 03/12/16: mild LV dilation. Moderately reduced LV fn. Severe apical wall HK. MIld LAE. Mod-sev MR. Mod TR. RVSP 30-40. Echo 12/2015 report: mild dec lvef, global hk, rv tds, mod-sev mr -images reviewed by prior cardiology consult: MR is moderate Echo 04/2015: nl lv/rv/valves Assessment/Plan 66-year-old with h/o prior admissions for sob/respiratory failure, hypertension , CVA 2012 on aggrenox, SVT (new dx on prior admission) with associated new cardiomyopathy (tachymyopathy? vs. stress inducedhad subsequent normalization of function), THN, HL, ESRD on HD, chronic pulmonary disease, GERD, diabetes, thyroid abnormality on methimazole, multiple abd surgeries including hysterectomy and appendectomy presenting with abdominal pain fever and found SVT . fever (101.6 in ER), abd pain: -CT abd without clear etiology. 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 Febrile illness as possible trigger? - no indication for AC for this rhythm - SVT controlled, cont toprol and cont dilt (note: she is more responsive to diltiazem than metoprolol but given her reduced lvef trying to avoid increasing dilt if possible) - cont to monitor on tele Cardiomyopathy - progressive drop in EF over the course of the year. On past admit in december only mildly depressed EF, thought to have contribution from tachymyopathy vs. stress induced. Will likely need ischemic evaluation once stable/infectious issues resolve. - Has improved rate control with diltiazem and so previously have not wanted to use beta louis but here with breakthrough SVT and reduced lvef so have added on metoprolol. Will consider need to wean diltiazem if LVEF remains significantly depressed. - Currently doesn't appear significantly volume overloaded. Con't po lasix and volume management per HD/UF/renal. Mitral regurgitation -vol mgmt primarily via HD/UF, per renal -MR only moderate, not etiologic in chf per Dr. Arriaza's review of last echo, now with worsening of MR on more recent echo. Patient does not seem to be particularly volume overloaded as mentioned above. No signs of valvular decompensation. elevated troponin: -trop here 0.5 x3, not c/w ACS -likely sec to rapid SVT causing mild Type II UT, vs ESRD pt, vs chronic hi filling pressures/chf -nonspecific TWAs on ekg's here also may be sec to recurrent rapid SVT (? had this as well in [place], causing changes on initial ecg here) -should have nuclear stress test vs. R/LHC to risk-stratify and r/o asymptomatic underlying obstructive CAD, in setting of worsening EF. Would wait until clinically stable from infectious standpoint. (presented with fever and elevated wbc). -she is already on assisted ASA (Aggrenox), statin added here, cont bb chronic lung dz, ? ILDz: - resp failure during prior admit with pulm infiltrates of unclear etiology, suspected ILDz of ? etiology, clinically improved with empiric steroids trial, open lung bx deferred (bronch was unrevealing) - 12/[address] dilated IVC but only small effusions, with upper lobe infiltrates more c/w PNA than chf (dr devi review: recurrent consolidation in changing locations/distributions in comparison to prior CT, possibly c/w cryptogenic organizing pneumonia/BOOP). HTN -cont same meds for now, monitor ESRD, on HD: -s/p renal bx last time here c/w DM nephropathy -HD per renal h/o CVA - has been on aggrenox
--- NOTE | 2016-03-16 12:39 | PN ---
Progress Note (short form) - Note Progress Note: Renal follow up for ESRD Pt seen and examined at the bedside s/p dialysis yesterday continues to have loose stools (4x yesterday) has sob with minimal exertion but no cough or chest pain Vital Signs Temperature 98.7 F 03/16/16 10:00 Pulse Rate 83 03/16/16 11:55 Respiratory Rate 20 03/16/16 10:00 Blood Pressure 152/65 03/16/16 10:00 O2 Sat by Pulse Oximetry (%) 97 03/16/16 11:55 Intake & Output 03/13/16 03/14/16 03/15/16 03/16/16 23:59 23:59 23:59 23:59 Intake Total 860 510 800 310 Balance 860 510 800 310 Weight 211 lb 11.2 oz 214 lb 210 lb Gen: NAD, awake and alert CVS: RRR, No M/R Lungs: CTA no rales or wheeze. Abd: Obese, mild tenderness Ext: No edema, clubbing or cyanosis CBC, BMP 03/15/16 09:00 03/15/16 09:00 Current Medications Atorvastatin Calcium (Lipitor -) 10 mg PO HS [facility] Last Admin: 03/15/16 22:20 Dose: 10 mg Diltiazem HCl (Cardizem -) 60 mg PO TID [facility] Last Admin: 03/16/16 06:20 Dose: 60 mg Dipyridamole/Aspirin (Aggrenox -) 1 combo PO BID [facility] Last Admin: 03/16/16 09:52 Dose: 1 combo Ferrous Sulfate (Feosol -) 325 mg PO TIDCM [facility] Last Admin: 03/16/16 11:26 Dose: 325 mg Furosemide (Lasix -) 80 mg PO DAILY [facility] Last Admin: 03/16/16 09:52 Dose: 80 mg Heparin Sodium (Porcine) (Heparin -) 5,000 unit SQ BID [facility] Last Admin: 03/16/16 09:52 Dose: 5,000 unit Methimazole (Tapazole -) 5 mg PO DAILY [facility] Last Admin: 03/16/16 09:52 Dose: 5 mg Metoprolol Succinate (Toprol Xl -) 50 mg PO BID [facility] Last Admin: 03/16/16 09:52 Dose: 50 mg Metronidazole (Flagyl -) 500 mg PO TID [facility] A/P 66 year old woman with PMhx of ESRD on HD (TTS at [facility]) , Hypertension, DM, Hep C who presented with complaints of Abd pain and loose stools and found to have SVT and fever. #ESRD on HD/Hypervolemia no acute indication for dialysis today Tolerated HD well yesterday next dialysis tomorrow dose all meds for intermittent HD continue oral Lasix #Diarrhea/C-dif on IV flagyl C-Diff antigen positive, Toxin negative #SVT rate control as per cardiology on metoprolol and cardizem #Renal Osteodystrophy Check Phos Vit D analog with Hd #CKD related Anemia Hgb at goal Jon Paz DO
[2016-03-16] MEDS: metroNIDAZOLE 250 MG TABLET PO SCH ×2 (15:13→22:17)
[2016-03-16] MEDS: ATORVASTATIN CA 10 MG TABLET (FP) PO SCH (22:13)
--- NOTE | 2016-03-16 22:41 | PN ---
Progress Note, Physician History of Present Illness: No fever, chils, dizziness, palp, CP, SOB, abd pain, V Pt still with lose stool ( 3-4/ day), improved. - Current Medication List Current Medications: Active Medications Atorvastatin Calcium (Lipitor -) 10 mg PO HS [facility] Last Admin: 03/16/16 22:13 Dose: 10 mg Diltiazem HCl (Cardizem -) 60 mg PO TID [facility] Last Admin: 03/16/16 22:12 Dose: 60 mg Dipyridamole/Aspirin (Aggrenox -) 1 combo PO BID [facility] Last Admin: 03/16/16 22:12 Dose: 1 combo Ferrous Sulfate (Feosol -) 325 mg PO TIDCM [facility] Last Admin: 03/16/16 16:43 Dose: 325 mg Furosemide (Lasix -) 80 mg PO DAILY [facility] Last Admin: 03/16/16 09:52 Dose: 80 mg Heparin Sodium (Porcine) (Heparin -) 5,000 unit SQ BID [facility] Last Admin: 03/16/16 22:12 Dose: 5,000 unit Methimazole (Tapazole -) 5 mg PO DAILY [facility] Last Admin: 03/16/16 09:52 Dose: 5 mg Metoprolol Succinate (Toprol Xl -) 50 mg PO BID [facility] Last Admin: 03/16/16 22:13 Dose: 50 mg Metronidazole (Flagyl -) 500 mg PO TID [facility] Last Admin: 03/16/16 22:17 Dose: 500 mg Paricalcitol (Zemplar -) 2 mcg IVPUSH ONCE ONE Stop: 03/17/16 06:01 - Objective Vital Signs: Vital Signs Temperature 97.9 F 03/16/16 17:00 Pulse Rate 64 03/16/16 17:00 Respiratory Rate 20 03/16/16 17:00 Blood Pressure 146/75 03/16/16 17:00 O2 Sat by Pulse Oximetry (%) 97 03/16/16 11:55 Constitutional: Yes: No Distress, Calm Cardiovascular: Yes: Regular Rate and Rhythm, S1, S2 Respiratory: Yes: Regular, CTA Bilaterally Gastrointestinal: Yes: Normal Bowel Sounds, Soft, Abdomen, Obese. No: Palpable Mass, Tenderness Edema: No Labs: CBC, BMP 03/15/16 09:00 03/15/16 09:00 INR, PTT INR 1.12 (0.82-1.09) 03/11/16 15:50 Problem List - Problems (1) SVT (supraventricular tachycardia) Assessment/Plan: Controlled; on metoprolol and diltiazem. Cardio f/u appreciated Monitored on Telemetry Code(s): I47.1 - SUPRAVENTRICULAR TACHYCARDIA (2) C. difficile colitis Assessment/Plan: on Flagyl ID and GI f/u appreciated. Code(s): A04.7 - ENTEROCOLITIS DUE TO CLOSTRIDIUM DIFFICILE (3) End stage renal disease on dialysis Assessment/Plan: On HD. Renal f/u appreciated. Code(s): N18.6 - END STAGE RENAL DISEASE Z99.2 - DEPENDENCE ON RENAL DIALYSIS (4) Diabetes Code(s): E11.9 - TYPE 2 DIABETES MELLITUS WITHOUT COMPLICATIONS Qualifiers: Diabetes mellitus type: type 2 Diabetes mellitus complication status: without complication (5) Hypertension Code(s): I10 - ESSENTIAL (PRIMARY) HYPERTENSION (6) Hepatitis C Code(s): B19.20 - UNSPECIFIED VIRAL HEPATITIS C WITHOUT HEPATIC COMA (7) Anemia Code(s): D64.9 - ANEMIA, UNSPECIFIED Qualifiers: Other causes of anemia: chronic disease, kidney Assessment/Plan AM labs
[2016-03-17] MEDS: metroNIDAZOLE 250 MG TABLET PO SCH ×4 (06:15→21:59)
[2016-03-17] MEDS: dilTIAZem HCL 60 MG TABLET (FP) PO SCH ×4 (06:15→21:55)
[2016-03-17 08:45] LABS: MCH 26.7 pg (25.7-33.7); MCHC 31.6 g/dl (32.0-36.0); MEAN CELL VOLUME 84.5 fl (80-96); MEAN PLT VOLUME 9.7 fl (7.5-11.1); PLATELET COUNT 244 K/MM3 (134-434); RDW 14.7 % (11.6-15.6); WHITE BLOOD COUNT 10.2 K/mm3 (4.0-10.0)
[2016-03-17] MEDS: FERROUS SO4 325 MG TABLET (FP) PO SCH ×3 (09:39→17:30)
[2016-03-17] MEDS ORDERED: PARICALCITOL 5 MCG/ML VIAL IVPUSH ONE (10:00)
[2016-03-17] MEDS: FUROSEMIDE 40 MG TABLET (FP) PO SCH (10:00)
--- NOTE | 2016-03-17 10:14 | PN ---
Progress Note (short form) - Note Progress Note: Resting comfortably without complaint. S/p HD via permacath. Denies cough, CPP or SOB. AVSS. Afeb. CBC 03/17/16 05:35 3 PE General: nad LUE: avf w/ good thrill. + radial pulse. No numbness or tingling to hand. cap refill < 3 seconds Problem List - Problems (1) End stage renal disease on dialysis Assessment/Plan: Cont HD via PC until cleared to use AVF. Duplex ordered to assess AVF flow and diameter. Cont care per primary medical team. Code(s): N18.6 - END STAGE RENAL DISEASE Z99.2 - DEPENDENCE ON RENAL DIALYSIS
[2016-03-17] MEDS: HEPARIN NA (PORCINE) 5,000 UNITS/ML 1ML VIAL SQ SCH ×2 (11:00→21:54)
--- NOTE | 2016-03-17 13:01 | PN ---
Progress Note, Physician History of Present Illness: No complaints Tele: NSR at 60 with PVC - Current Medication List Current Medications: Active Medications Atorvastatin Calcium (Lipitor -) 10 mg PO HS [facility] Last Admin: 03/16/16 22:13 Dose: 10 mg Diltiazem HCl (Cardizem -) 60 mg PO TID [facility] Last Admin: 03/17/16 06:17 Dose: Not Given Dipyridamole/Aspirin (Aggrenox -) 1 combo PO BID [facility] Last Admin: 03/16/16 22:12 Dose: 1 combo Ferrous Sulfate (Feosol -) 325 mg PO TIDCM [facility] Last Admin: 03/17/16 11:56 Dose: Not Given Furosemide (Lasix -) 80 mg PO DAILY [facility] Last Admin: 03/16/16 09:52 Dose: 80 mg Heparin Sodium (Porcine) (Heparin -) 5,000 unit SQ BID [facility] Last Admin: 03/16/16 22:12 Dose: 5,000 unit Methimazole (Tapazole -) 5 mg PO DAILY [facility] Last Admin: 03/16/16 09:52 Dose: 5 mg Metoprolol Succinate (Toprol Xl -) 50 mg PO BID [facility] Last Admin: 03/16/16 22:13 Dose: 50 mg Metronidazole (Flagyl -) 500 mg PO TID [facility] Last Admin: 03/17/16 06:17 Dose: Not Given - Objective Vital Signs: Vital Signs Temperature 98.0 F 03/17/16 06:00 Pulse Rate 76 03/17/16 06:00 Respiratory Rate 20 03/17/16 06:00 Blood Pressure 139/80 03/17/16 06:00 O2 Sat by Pulse Oximetry (%) 96 03/16/16 21:00 Constitutional: Yes: Well Nourished Eyes: Yes: WNL HENT: Yes: WNL Neck: Yes: WNL Cardiovascular: Yes: WNL Respiratory: Yes: WNL Gastrointestinal: Yes: WNL Extremities: Yes: WNL Edema: Yes Edema: LLE: Trace, RLE: Trace Labs: CBC, BMP 03/17/16 05:35 03/15/16 09:00 INR, PTT INR 1.12 (0.82-1.09) 03/11/16 15:50 Assessment/Plan 66-year-old with h/o prior admissions for sob/respiratory failure, hypertension , CVA 2012 on aggrenox, SVT (new dx on prior admission) with associated new cardiomyopathy (tachymyopathy? vs. stress inducedhad subsequent normalization of function), THN, HL, ESRD on HD, chronic pulmonary disease, GERD, diabetes, thyroid abnormality on methimazole, multiple abd surgeries including hysterectomy and appendectomy presenting with abdominal pain fever and found SVT . fever (101.6 in ER), abd pain: -CT abd without clear etiology. 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 Febrile illness as possible trigger? - no indication for AC for this rhythm - SVT controlled, cont toprol and cont dilt (note: she is more responsive to diltiazem than metoprolol but given her reduced lvef trying to avoid increasing dilt if possible) - cont to monitor on tele Cardiomyopathy - progressive drop in EF over the course of the year. On past admit in december only mildly depressed EF, thought to have contribution from tachymyopathy vs. stress induced. Will likely need ischemic evaluation once stable/infectious issues resolve. - Has improved rate control with diltiazem and so previously have not wanted to use beta louis but here with breakthrough SVT and reduced lvef so have added on metoprolol. Will consider need to wean diltiazem if LVEF remains significantly depressed. - Currently doesn't appear significantly volume overloaded. Con't po lasix and volume management per HD/UF/renal. Mitral regurgitation -vol mgmt primarily via HD/UF, per renal -MR only moderate, not etiologic in chf per Dr. Arriaza's review of last echo, now with worsening of MR on more recent echo. Patient does not seem to be particularly volume overloaded as mentioned above. No signs of valvular decompensation. elevated troponin: -trop here 0.5 x3, not c/w ACS -likely sec to rapid SVT causing mild Type II PA, vs ESRD pt, vs chronic hi filling pressures/chf -nonspecific TWAs on ekg's here also may be sec to recurrent rapid SVT (? had this as well in [place], causing changes on initial ecg here) -should have nuclear stress test vs. R/LHC to risk-stratify and r/o asymptomatic underlying obstructive CAD, in setting of worsening EF. Would wait until clinically stable from infectious standpoint. (presented with fever and elevated wbc). -she is already on alf ASA (Aggrenox), statin added here, cont bb chronic lung dz, ? ILDz: - resp failure during prior admit with pulm infiltrates of unclear etiology, suspected ILDz of ? etiology, clinically improved with empiric steroids trial, open lung bx deferred (bronch was unrevealing) - 12/[address] dilated IVC but only small effusions, with upper lobe infiltrates more c/w PNA than chf (dr devi review: recurrent consolidation in changing locations/distributions in comparison to prior CT, possibly c/w cryptogenic organizing pneumonia/BOOP). HTN -cont same meds for now, monitor ESRD, on HD: -s/p renal bx last time here c/w DM nephropathy -HD per renal h/o CVA - has been on aggrenox
[2016-03-17 13:54] LABS: CALCIUM 8.5 mg/dL (8.5-10.1); CREATININE 2.9 mg/dL (0.55-1.02); PHOSPHOROUS 2.8 mg/dL (2.5-4.9)
--- NOTE | 2016-03-17 13:56 | PN ---
Progress Note (short form) - Note Progress Note: Renal follow up for ESRD Pt seen and examined during dialysis BP stable catheter with good function goal uF Is 3L pt without complaints Vital Signs Temperature 98.0 F 03/17/16 06:00 Pulse Rate 76 03/17/16 06:00 Respiratory Rate 20 03/17/16 06:00 Blood Pressure 139/80 03/17/16 06:00 O2 Sat by Pulse Oximetry (%) 96 03/16/16 21:00 Intake & Output 03/14/16 03/15/16 03/16/16 03/17/16 23:59 23:59 23:59 23:59 Intake Total 510 800 870 210 Balance 510 800 870 210 Weight 211 lb 11.2 oz 214 lb 210 lb 211 lb 8 oz Gen: NAD, awake and alert CVS: RRR, No M/R Lungs: CTA no rales or wheeze. Abd: Obese, mild tenderness Ext: No edema, clubbing or cyanosis CBC, BMP 03/17/16 05:35 Current Medications Atorvastatin Calcium (Lipitor -) 10 mg PO HS [facility] Last Admin: 03/16/16 22:13 Dose: 10 mg Diltiazem HCl (Cardizem -) 60 mg PO TID [facility] Last Admin: 03/17/16 06:17 Dose: Not Given Dipyridamole/Aspirin (Aggrenox -) 1 combo PO BID [facility] Last Admin: 03/16/16 22:12 Dose: 1 combo Ferrous Sulfate (Feosol -) 325 mg PO TIDCM [facility] Last Admin: 03/17/16 11:56 Dose: Not Given Furosemide (Lasix -) 80 mg PO DAILY [facility] Last Admin: 03/16/16 09:52 Dose: 80 mg Heparin Sodium (Porcine) (Heparin -) 5,000 unit SQ BID [facility] Last Admin: 03/16/16 22:12 Dose: 5,000 unit Methimazole (Tapazole -) 5 mg PO DAILY [facility] Last Admin: 03/16/16 09:52 Dose: 5 mg Metoprolol Succinate (Toprol Xl -) 50 mg PO BID [facility] Last Admin: 03/16/16 22:13 Dose: 50 mg Metronidazole (Flagyl -) 500 mg PO TID [facility] Last Admin: 03/17/16 06:17 Dose: Not Given A/P 66 year old woman with PMhx of ESRD on HD (TTS at [facility]) , Hypertension, DM, Hep C who presented with complaints of Abd pain and loose stools and found to have SVT and fever. #ESRD on HD/Hypervolemia stable dialysis today seen by vascular Sx -> doppler of AVF pending #Diarrhea/C-dif on IV flagyl C-Diff antigen positive, Toxin negative #SVT rate control as per cardiology on metoprolol and cardizem #Renal Osteodystrophy Check Phos Vit D analog with Hd #CKD related Anemia Hgb at goal Jon Paz DO
--- NOTE | 2016-03-17 15:58 | PN ---
Progress Note, Physician Chief Complaint: OOB to chair feels better, ate OK, no c/o; still with episodes of tachycardia but HR better controlled; O2 sat/RA with walking >90% - Current Medication List Current Medications: Active Medications Atorvastatin Calcium (Lipitor -) 10 mg PO HS [facility] Last Admin: 03/16/16 22:13 Dose: 10 mg Diltiazem HCl (Cardizem -) 60 mg PO TID [facility] Last Admin: 03/17/16 06:17 Dose: Not Given Dipyridamole/Aspirin (Aggrenox -) 1 combo PO BID [facility] Last Admin: 03/16/16 22:12 Dose: 1 combo Ferrous Sulfate (Feosol -) 325 mg PO TIDCM [facility] Last Admin: 03/17/16 11:56 Dose: Not Given Furosemide (Lasix -) 80 mg PO DAILY [facility] Last Admin: 03/16/16 09:52 Dose: 80 mg Heparin Sodium (Porcine) (Heparin -) 5,000 unit SQ BID [facility] Last Admin: 03/16/16 22:12 Dose: 5,000 unit Methimazole (Tapazole -) 5 mg PO DAILY [facility] Last Admin: 03/16/16 09:52 Dose: 5 mg Metoprolol Succinate (Toprol Xl -) 50 mg PO BID [facility] Last Admin: 03/16/16 22:13 Dose: 50 mg Metronidazole (Flagyl -) 500 mg PO TID [facility] Last Admin: 03/17/16 06:17 Dose: Not Given - Objective Vital Signs: Vital Signs Temperature 98.0 F 03/17/16 06:00 Pulse Rate 68 03/17/16 14:30 Respiratory Rate 18 03/17/16 14:30 Blood Pressure 149/91 03/17/16 14:30 O2 Sat by Pulse Oximetry (%) 96 03/16/16 21:00 Constitutional: Yes: No Distress Eyes: Yes: Conjunctiva Clear HENT: Yes: Atraumatic Neck: Yes: Supple Cardiovascular: Yes: Regular Rate and Rhythm Respiratory: Yes: CTA Bilaterally Gastrointestinal: Yes: Soft. No: Distention Genitourinary: No: CVA Tenderness - Left, CVA Tenderness - Right Musculoskeletal: No: Joint Stiffness, Joint Swelling Extremities: No: Cold, Cool Edema: No Peripheral Pulses WNL: Yes Integumentary: No: Rash, Venous Stasis Changes Neurological: Yes: WNL, Alert, Oriented ...Motor Strength: WNL Psychiatric: Yes: WNL, Alert, Oriented. No: Agitated, Suicidal Ideation Labs: CBC, BMP 03/17/16 05:35 03/17/16 13:00 INR, PTT INR 1.12 (0.82-1.09) 03/11/16 15:50 - ....Imaging Other: Report Reviewed Assessment/Plan The patient is a 66-year-old woman, accompanied by family, with a significant past medical history of anemia, hypertension, CVA, end-stage renal disease (on hemo-dialysis;TRS), insulin-dependent diabetes mellitus who presents to the emergency department for further evaluation of abdominal pain for 2 days. Patient also notes that she feels lightheaded and thirsty and had N/V/D fever and chills. No fevers, chills, chest pain, cough, back pain. In ER developed SVT 180 started on iv cardizem and iv amiodarone drip but later meds adjusted per cardiology admit; CDiff colitis cover with ATB per ID HD per renal PT rehab check stools continue all meds falls pfx decubs pfx prognosis guarded d/w pt and staff pt agreed with plan PT rehab eval
[2016-03-17] MEDS ORDERED: PT OWN MED DRAWER 7, Y5N ONE ×2 (17:12→21:58)
[2016-03-17] MEDS: ASPIRIN/DIPYRIDAMOLE 25 MG/200 MG CAPSULE (FP) PO SCH ×2 (17:29→21:54)
[2016-03-17] MEDS: METOPROLOL SUCCINATE 50 MG TAB.SR.24H (FP) PO SCH ×2 (17:29→21:55)
[2016-03-17] MEDS: METHIMAZOLE 5 MG TABLET (FP) PO SCH (17:29)
[2016-03-17] MEDS: ATORVASTATIN CA 10 MG TABLET (FP) PO SCH (21:55)
[2016-03-18] MEDS ORDERED: PT OWN MED DRAWER 7, Y5N ONE ×2 (05:18→08:47)
[2016-03-18] MEDS: metroNIDAZOLE 250 MG TABLET PO SCH ×3 (05:38→21:26)
[2016-03-18] MEDS: dilTIAZem HCL 60 MG TABLET (FP) PO SCH ×3 (05:39→21:27)
[2016-03-18] MEDS: FERROUS SO4 325 MG TABLET (FP) PO SCH ×2 (07:32→11:39)
--- NOTE | 2016-03-18 09:28 | PN ---
Progress Note (short form) - Note Progress Note: Continue HD via her PC. Awaiting fistula study to evaluate the flow and diameter (ordered). If flow & diameter is acceptable, may attempt using her avf. If using without problem, please let vascular surgery know so that we can remove her permacath. Problem List - Problems (1) End stage renal disease on dialysis Code(s): N18.6 - END STAGE RENAL DISEASE Z99.2 - DEPENDENCE ON RENAL DIALYSIS
[2016-03-18] MEDS: METHIMAZOLE 5 MG TABLET (FP) PO SCH (09:32)
[2016-03-18] MEDS: HEPARIN NA (PORCINE) 5,000 UNITS/ML 1ML VIAL SQ SCH ×2 (09:32→21:27)
[2016-03-18] MEDS: ASPIRIN/DIPYRIDAMOLE 25 MG/200 MG CAPSULE (FP) PO SCH ×2 (09:33→21:35)
[2016-03-18] MEDS: FUROSEMIDE 40 MG TABLET (FP) PO SCH (09:33)
[2016-03-18] MEDS: METOPROLOL SUCCINATE 50 MG TAB.SR.24H (FP) PO SCH ×2 (09:33→21:27)
--- NOTE | 2016-03-18 11:35 | PN ---
Progress Note, Physician Chief Complaint: No events No complaints Tele: NSR with wide complex - Current Medication List Current Medications: Active Medications Atorvastatin Calcium (Lipitor -) 10 mg PO HS [facility] Last Admin: 03/17/16 21:55 Dose: 10 mg Diltiazem HCl (Cardizem -) 60 mg PO TID [facility] Last Admin: 03/18/16 05:39 Dose: 60 mg Dipyridamole/Aspirin (Aggrenox -) 1 combo PO BID [facility] Last Admin: 03/18/16 09:33 Dose: 1 combo Ferrous Sulfate (Feosol -) 325 mg PO TIDCM [facility] Last Admin: 03/18/16 07:32 Dose: 325 mg Furosemide (Lasix -) 80 mg PO DAILY [facility] Last Admin: 03/18/16 09:33 Dose: 80 mg Heparin Sodium (Porcine) (Heparin -) 5,000 unit SQ BID [facility] Last Admin: 03/18/16 09:32 Dose: 5,000 unit Methimazole (Tapazole -) 5 mg PO DAILY [facility] Last Admin: 03/18/16 09:32 Dose: 5 mg Metoprolol Succinate (Toprol Xl -) 50 mg PO BID [facility] Last Admin: 03/18/16 09:33 Dose: 50 mg Metronidazole (Flagyl -) 500 mg PO TID [facility] Last Admin: 03/18/16 05:38 Dose: 500 mg - Objective Vital Signs: Vital Signs Temperature 98.3 F 03/18/16 10:00 Pulse Rate 72 03/18/16 10:00 Respiratory Rate 18 03/18/16 10:00 Blood Pressure 147/82 03/18/16 10:00 O2 Sat by Pulse Oximetry (%) 98 03/18/16 09:00 Constitutional: Yes: No Distress Eyes: Yes: WNL HENT: Yes: WNL Neck: Yes: WNL Cardiovascular: Yes: Regular Rate and Rhythm Respiratory: Yes: WNL Gastrointestinal: Yes: WNL ...Rectal Exam: Yes: WNL Extremities: Yes: WNL Edema: No Labs: CBC, BMP 03/17/16 05:35 03/17/16 13:00 INR, PTT INR 1.12 (0.82-1.09) 03/11/16 15:50 Assessment/Plan 66-year-old with h/o prior admissions for sob/respiratory failure, hypertension , CVA 2012 on aggrenox, SVT (new dx on prior admission) with associated new cardiomyopathy (tachymyopathy? vs. stress inducedhad subsequent normalization of function), THN, HL, ESRD on HD, chronic pulmonary disease, GERD, diabetes, thyroid abnormality on methimazole, multiple abd surgeries including hysterectomy and appendectomy presenting with abdominal pain fever and found SVT . fever (101.6 in ER), abd pain: -CT abd without clear etiology. 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 Febrile illness as possible trigger? - no indication for AC for this rhythm - SVT controlled, cont toprol and cont dilt (note: she is more responsive to diltiazem than metoprolol but given her reduced lvef trying to avoid increasing dilt if possible) - cont to monitor on tele Cardiomyopathy - progressive drop in EF over the course of the year. On past admit in december only mildly depressed EF, thought to have contribution from tachymyopathy vs. stress induced. Will likely need ischemic evaluation once stable/infectious issues resolve. - Has improved rate control with diltiazem and so previously have not wanted to use beta louis but here with breakthrough SVT and reduced lvef so have added on metoprolol. Will consider need to wean diltiazem if LVEF remains significantly depressed. - Currently doesn't appear significantly volume overloaded. Con't po lasix and volume management per HD/UF/renal. Mitral regurgitation -vol mgmt primarily via HD/UF, per renal -MR only moderate, not etiologic in chf per Dr. Arriaza's review of last echo, now with worsening of MR on more recent echo. Patient does not seem to be particularly volume overloaded as mentioned above. No signs of valvular decompensation. elevated troponin: -trop here 0.5 x3, not c/w ACS -likely sec to rapid SVT causing mild Type II ME, vs ESRD pt, vs chronic hi filling pressures/chf -nonspecific TWAs on ekg's here also may be sec to recurrent rapid SVT (? had this as well in [place], causing changes on initial ecg here) -should have nuclear stress test vs. R/LHC to risk-stratify and r/o asymptomatic underlying obstructive CAD, in setting of worsening EF. Would wait until clinically stable from infectious standpoint. (presented with fever and elevated wbc). -she is already on skilled nursing ASA (Aggrenox), statin added here, cont bb chronic lung dz, ? ILDz: - resp failure during prior admit with pulm infiltrates of unclear etiology, suspected ILDz of ? etiology, clinically improved with empiric steroids trial, open lung bx deferred (bronch was unrevealing) - 12/[address] dilated IVC but only small effusions, with upper lobe infiltrates more c/w PNA than chf (dr devi review: recurrent consolidation in changing locations/distributions in comparison to prior CT, possibly c/w cryptogenic organizing pneumonia/BOOP). HTN -cont same meds for now, monitor ESRD, on HD: -s/p renal bx last time here c/w DM nephropathy -HD per renal h/o CVA - has been on aggrenox
--- NOTE | 2016-03-18 13:06 | PN ---
Progress Note, Physician History of Present Illness: No fever, chils, dizziness, palp, CP, SOB, abd pain, V, N. Pt still with significant improvement in BM - Current Medication List Current Medications: Active Medications Atorvastatin Calcium (Lipitor -) 10 mg PO HS [facility] Last Admin: 03/17/16 21:55 Dose: 10 mg Diltiazem HCl (Cardizem -) 60 mg PO TID [facility] Last Admin: 03/18/16 05:39 Dose: 60 mg Dipyridamole/Aspirin (Aggrenox -) 1 combo PO BID [facility] Last Admin: 03/18/16 09:33 Dose: 1 combo Ferrous Sulfate (Feosol -) 325 mg PO TIDCM [facility] Last Admin: 03/18/16 11:39 Dose: 325 mg Furosemide (Lasix -) 80 mg PO DAILY [facility] Last Admin: 03/18/16 09:33 Dose: 80 mg Heparin Sodium (Porcine) (Heparin -) 5,000 unit SQ BID [facility] Last Admin: 03/18/16 09:32 Dose: 5,000 unit Methimazole (Tapazole -) 5 mg PO DAILY [facility] Last Admin: 03/18/16 09:32 Dose: 5 mg Metoprolol Succinate (Toprol Xl -) 50 mg PO BID [facility] Last Admin: 03/18/16 09:33 Dose: 50 mg Metronidazole (Flagyl -) 500 mg PO TID [facility] Last Admin: 03/18/16 05:38 Dose: 500 mg - Objective Vital Signs: Vital Signs Temperature 98.3 F 03/18/16 10:00 Pulse Rate 72 03/18/16 10:00 Respiratory Rate 18 03/18/16 10:00 Blood Pressure 147/82 03/18/16 10:00 O2 Sat by Pulse Oximetry (%) 98 03/18/16 09:00 Constitutional: Yes: No Distress, Calm Cardiovascular: Yes: Regular Rate and Rhythm, S1, S2 Respiratory: Yes: Regular, CTA Bilaterally. No: Rales Gastrointestinal: Yes: Normal Bowel Sounds, Soft, Abdomen, Obese. No: Tenderness Edema: No Neurological: Yes: Alert, Oriented Labs: CBC, BMP 03/17/16 05:35 03/17/16 13:00 INR, PTT INR 1.12 (0.82-1.09) 03/11/16 15:50 Problem List - Problems (1) SVT (supraventricular tachycardia) Assessment/Plan: Controlled; on metoprolol and diltiazem. Cardio f/u appreciated Monitored on Telemetry Code(s): I47.1 - SUPRAVENTRICULAR TACHYCARDIA (2) C. difficile colitis Assessment/Plan: on Flagyl ID and GI f/u appreciated. Code(s): A04.7 - ENTEROCOLITIS DUE TO CLOSTRIDIUM DIFFICILE (3) End stage renal disease on dialysis Assessment/Plan: On HD- needs HD access revision ( to f/u uriel Vasc. Sx.). Renal f/u appreciated. Code(s): N18.6 - END STAGE RENAL DISEASE Z99.2 - DEPENDENCE ON RENAL DIALYSIS (4) Diabetes Code(s): E11.9 - TYPE 2 DIABETES MELLITUS WITHOUT COMPLICATIONS Qualifiers: Diabetes mellitus type: type 2 Diabetes mellitus complication status: without complication (5) Hypertension Assessment/Plan: cont. meds Code(s): I10 - ESSENTIAL (PRIMARY) HYPERTENSION (6) Hepatitis C Code(s): B19.20 - UNSPECIFIED VIRAL HEPATITIS C WITHOUT HEPATIC COMA (7) Anemia Assessment/Plan: better Code(s): D64.9 - ANEMIA, UNSPECIFIED Qualifiers: Other causes of anemia: chronic disease, kidney
[2016-03-18] MEDS: ATORVASTATIN CA 10 MG TABLET (FP) PO SCH (21:27)
[2016-03-19] MEDS ORDERED: dilTIAZem HCL 30 MG TABLET (FP) ONE (06:35)
[2016-03-19] MEDS: metroNIDAZOLE 250 MG TABLET PO SCH ×3 (06:35→22:50)
[2016-03-19] MEDS: dilTIAZem HCL 60 MG TABLET (FP) PO SCH ×3 (06:36→22:49)
[2016-03-19] MEDS: FERROUS SO4 325 MG TABLET (FP) PO SCH ×3 (08:45→17:22)
[2016-03-19] MEDS: HEPARIN NA (PORCINE) 5,000 UNITS/ML 1ML VIAL SQ SCH ×2 (09:27→22:50)
[2016-03-19] MEDS: FUROSEMIDE 40 MG TABLET (FP) PO SCH (09:27)
[2016-03-19] MEDS: ASPIRIN/DIPYRIDAMOLE 25 MG/200 MG CAPSULE (FP) PO SCH ×2 (09:27→22:49)
[2016-03-19] MEDS: METOPROLOL SUCCINATE 50 MG TAB.SR.24H (FP) PO SCH ×2 (09:28→22:50)
[2016-03-19] MEDS: METHIMAZOLE 5 MG TABLET (FP) PO SCH (09:28)
--- NOTE | 2016-03-19 12:02 | PN ---
Progress Note (short form) - Note Progress Note: Renal follow up for ESRD Pt seen and examined at the bedside +diarrhea overnight had doppler of AVF done Vital Signs Temperature 98 F 03/19/16 10:00 Pulse Rate 74 03/19/16 10:00 Respiratory Rate 18 03/19/16 10:00 Blood Pressure 140/70 03/19/16 10:00 O2 Sat by Pulse Oximetry (%) 97 03/19/16 09:00 Gen: NAD, awake and alert CVS: RRR, No M/R Lungs: CTA no rales or wheeze. Abd: Obese, mild tenderness Ext: No edema, clubbing or cyanosis CBC, BMP 03/17/16 05:35 03/17/16 13:00 Current Medications Atorvastatin Calcium (Lipitor -) 10 mg PO HS [facility] Last Admin: 03/18/16 21:27 Dose: 10 mg Diltiazem HCl (Cardizem -) 60 mg PO TID [facility] Last Admin: 03/19/16 06:36 Dose: 60 mg Dipyridamole/Aspirin (Aggrenox -) 1 combo PO BID [facility] Last Admin: 03/19/16 09:27 Dose: 1 combo Ferrous Sulfate (Feosol -) 325 mg PO TIDCM [facility] Last Admin: 03/19/16 11:35 Dose: 325 mg Furosemide (Lasix -) 80 mg PO DAILY [facility] Last Admin: 03/19/16 09:27 Dose: 80 mg Heparin Sodium (Porcine) (Heparin -) 5,000 unit SQ BID [facility] Last Admin: 03/19/16 09:27 Dose: 5,000 unit Methimazole (Tapazole -) 5 mg PO DAILY [facility] Last Admin: 03/19/16 09:28 Dose: 5 mg Metoprolol Succinate (Toprol Xl -) 50 mg PO BID [facility] Last Admin: 03/19/16 09:28 Dose: 50 mg Metronidazole (Flagyl -) 500 mg PO TID [facility] Last Admin: 03/19/16 06:35 Dose: 500 mg A/P 66 year old woman with PMhx of ESRD on HD (TTS at [facility]) , Hypertension, DM, Hep C who presented with complaints of Abd pain and loose stools and found to have SVT and fever. #ESRD on HD/Hypervolemia no acute indication for dialysis today Vascular follow up for AVF doppler done #Diarrhea/C-dif on PO flagyl C-Diff antigen positive, Toxin negative #SVT rate control as per cardiology on metoprolol and cardizem #Renal Osteodystrophy Check Phos Vit D analog with Hd #CKD related Anemia Hgb at goal Jon Paz DO
--- NOTE | 2016-03-19 12:17 | PN ---
Progress Note, Physician History of Present Illness: Complains of diarrhea today Tele: NSR at 70s, PVCs. No SVT - Current Medication List Current Medications: Active Medications Atorvastatin Calcium (Lipitor -) 10 mg PO HS [facility] Last Admin: 03/18/16 21:27 Dose: 10 mg Diltiazem HCl (Cardizem -) 60 mg PO TID [facility] Last Admin: 03/19/16 06:36 Dose: 60 mg Dipyridamole/Aspirin (Aggrenox -) 1 combo PO BID [facility] Last Admin: 03/19/16 09:27 Dose: 1 combo Ferrous Sulfate (Feosol -) 325 mg PO TIDCM [facility] Last Admin: 03/19/16 11:35 Dose: 325 mg Furosemide (Lasix -) 80 mg PO DAILY [facility] Last Admin: 03/19/16 09:27 Dose: 80 mg Heparin Sodium (Porcine) (Heparin -) 5,000 unit SQ BID [facility] Last Admin: 03/19/16 09:27 Dose: 5,000 unit Methimazole (Tapazole -) 5 mg PO DAILY [facility] Last Admin: 03/19/16 09:28 Dose: 5 mg Metoprolol Succinate (Toprol Xl -) 50 mg PO BID [facility] Last Admin: 03/19/16 09:28 Dose: 50 mg Metronidazole (Flagyl -) 500 mg PO TID [facility] Last Admin: 03/19/16 06:35 Dose: 500 mg - Objective Vital Signs: Vital Signs Temperature 98 F 03/19/16 10:00 Pulse Rate 74 03/19/16 10:00 Respiratory Rate 18 03/19/16 10:00 Blood Pressure 140/70 03/19/16 10:00 O2 Sat by Pulse Oximetry (%) 97 03/19/16 09:00 Constitutional: Yes: No Distress Eyes: Yes: WNL, Sclera Icterus Neck: Yes: WNL Cardiovascular: Yes: WNL, Regular Rate and Rhythm Respiratory: Yes: WNL Gastrointestinal: Yes: WNL Musculoskeletal: Yes: WNL Extremities: Yes: WNL Edema: No Labs: CBC, BMP 03/17/16 05:35 03/17/16 13:00 INR, PTT INR 1.12 (0.82-1.09) 03/11/16 15:50 Assessment/Plan 66-year-old with h/o prior admissions for sob/respiratory failure, hypertension , CVA 2012 on aggrenox, SVT (new dx on prior admission) with associated new cardiomyopathy (tachymyopathy? vs. stress inducedhad subsequent normalization of function), THN, HL, ESRD on HD, chronic pulmonary disease, GERD, diabetes, thyroid abnormality on methimazole, multiple abd surgeries including hysterectomy and appendectomy presenting with abdominal pain fever and found SVT . 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 Febrile illness as possible trigger? - no indication for AC for this rhythm - SVT controlled, no evetns over weekend. cont toprol and cont dilt - OK to discontinue telemetry Cardiomyopathy - Currently doesn't appear significantly volume overloaded. Con't po lasix and volume management per HD/UF/renal. elevated troponin: -trop here 0.5 x3, not c/w ACS -likely sec to rapid SVT causing mild Type II [place], vs ESRD pt, vs chronic hi filling pressures/chf -should have nuclear stress test vs. R/LHC to risk-stratify and r/o asymptomatic underlying obstructive CAD, in setting of worsening EF. -Would wait until clinically stable from infectious standpoint. (presented with fever and elevated wbc). -she is already on [facility] ASA (Aggrenox), statin added here, cont bb HTN -cont same meds for now, monitor ESRD, on HD: -s/p renal bx last time here c/w DM nephropathy -HD per renal h/o CVA - has been on aggrenox
--- NOTE | 2016-03-19 12:59 | PN ---
Progress Note, Physician History of Present Illness: No fever, chils, dizziness, palp, CP, SOB, abd pain, V, N. Pt several episodes of diarrhea last night, better this AM - Current Medication List Current Medications: Active Medications Atorvastatin Calcium (Lipitor -) 10 mg PO HS [facility] Last Admin: 03/18/16 21:27 Dose: 10 mg Diltiazem HCl (Cardizem -) 60 mg PO TID [facility] Last Admin: 03/19/16 06:36 Dose: 60 mg Dipyridamole/Aspirin (Aggrenox -) 1 combo PO BID [facility] Last Admin: 03/19/16 09:27 Dose: 1 combo Ferrous Sulfate (Feosol -) 325 mg PO TIDCM [facility] Last Admin: 03/19/16 11:35 Dose: 325 mg Furosemide (Lasix -) 80 mg PO DAILY [facility] Last Admin: 03/19/16 09:27 Dose: 80 mg Heparin Sodium (Porcine) (Heparin -) 5,000 unit SQ BID [facility] Last Admin: 03/19/16 09:27 Dose: 5,000 unit Methimazole (Tapazole -) 5 mg PO DAILY [facility] Last Admin: 03/19/16 09:28 Dose: 5 mg Metoprolol Succinate (Toprol Xl -) 50 mg PO BID [facility] Last Admin: 03/19/16 09:28 Dose: 50 mg Metronidazole (Flagyl -) 500 mg PO TID [facility] Last Admin: 03/19/16 06:35 Dose: 500 mg - Objective Vital Signs: Vital Signs Temperature 98 F 03/19/16 10:00 Pulse Rate 74 03/19/16 10:00 Respiratory Rate 18 03/19/16 10:00 Blood Pressure 140/70 03/19/16 10:00 O2 Sat by Pulse Oximetry (%) 97 03/19/16 09:00 Constitutional: Yes: No Distress, Calm Cardiovascular: Yes: Regular Rate and Rhythm, S1, S2 Respiratory: Yes: Regular, CTA Bilaterally. No: Rales Gastrointestinal: Yes: Normal Bowel Sounds, Soft, Abdomen, Obese. No: Palpable Mass, Tenderness Edema: No Neurological: Yes: Alert, Oriented Labs: CBC, BMP 03/17/16 05:35 03/17/16 13:00 INR, PTT INR 1.12 (0.82-1.09) 03/11/16 15:50 Problem List - Problems (1) SVT (supraventricular tachycardia) Assessment/Plan: Controlled; on metoprolol and diltiazem. Cardio f/u appreciated Monitored on Telemetry per cardio Code(s): I47.1 - SUPRAVENTRICULAR TACHYCARDIA (2) C. difficile colitis Assessment/Plan: on Flagyl ID and GI f/u appreciated. Code(s): A04.7 - ENTEROCOLITIS DUE TO CLOSTRIDIUM DIFFICILE (3) End stage renal disease on dialysis Assessment/Plan: On HD- needs HD access revision ( to f/u wiht Vasc. Sx.). Renal f/u appreciated. Code(s): N18.6 - END STAGE RENAL DISEASE Z99.2 - DEPENDENCE ON RENAL DIALYSIS (4) Diabetes Code(s): E11.9 - TYPE 2 DIABETES MELLITUS WITHOUT COMPLICATIONS Qualifiers: Diabetes mellitus type: type 2 Diabetes mellitus complication status: without complication (5) Hypertension Assessment/Plan: cont. meds Code(s): I10 - ESSENTIAL (PRIMARY) HYPERTENSION (6) Hepatitis C Code(s): B19.20 - UNSPECIFIED VIRAL HEPATITIS C WITHOUT HEPATIC COMA (7) Anemia Assessment/Plan: Pt with CRF, on HD and anemia Code(s): D64.9 - ANEMIA, UNSPECIFIED Qualifiers: Other causes of anemia: chronic disease, kidney Assessment/Plan Labs at HD For HD tomorrow, to f/u with Vasc Sx; might be DC'ed tomorrow
--- NOTE | 2016-03-19 13:55 | PN ---
Progress Note (short form) - Note Progress Note: Vascular Surgery Pt seen and examined. Reviewed images of left avf. Area of stenosis in mid avf. Will need AVF venogram on sat. Chris Nick DO
[2016-03-19] MEDS: ATORVASTATIN CA 10 MG TABLET (FP) PO SCH (22:49)
[2016-03-20] MEDS: dilTIAZem HCL 60 MG TABLET (FP) PO SCH ×2 (05:57→15:39)
[2016-03-20] MEDS: metroNIDAZOLE 250 MG TABLET PO SCH ×3 (05:57→21:17)
[2016-03-20] MEDS: ASPIRIN/DIPYRIDAMOLE 25 MG/200 MG CAPSULE (FP) PO SCH ×2 (09:09→21:18)
[2016-03-20] MEDS: FERROUS SO4 325 MG TABLET (FP) PO SCH ×3 (09:10→16:49)
[2016-03-20] MEDS: HEPARIN NA (PORCINE) 5,000 UNITS/ML 1ML VIAL SQ SCH ×2 (09:10→21:18)
--- NOTE | 2016-03-20 11:03 | PN ---
Progress Note (short form) - Note Progress Note: Renal follow up for ESRD Pt seen and examined at the bedside frequency of diarrhea improving no chest pain or sob awaiting dialysis Vital Signs Temperature 98.2 F 03/20/16 09:00 Pulse Rate 71 03/20/16 09:00 Respiratory Rate 18 03/20/16 09:00 Blood Pressure 130/70 03/20/16 09:00 O2 Sat by Pulse Oximetry (%) 100 03/20/16 09:00 Gen: NAD, awake and alert CVS: RRR, No M/R Lungs: CTA no rales or wheeze. Abd: Obese, mild tenderness Ext: No edema, clubbing or cyanosis CBC, BMP 03/17/16 05:35 03/17/16 13:00 Current Medications Atorvastatin Calcium (Lipitor -) 10 mg PO HS [facility] Last Admin: 03/19/16 22:49 Dose: 10 mg Diltiazem HCl (Cardizem -) 60 mg PO TID [facility] Last Admin: 03/20/16 05:57 Dose: 60 mg Dipyridamole/Aspirin (Aggrenox -) 1 combo PO BID [facility] Last Admin: 03/20/16 09:09 Dose: 1 combo Ferrous Sulfate (Feosol -) 325 mg PO TIDCM [facility] Last Admin: 03/20/16 09:10 Dose: 325 mg Furosemide (Lasix -) 80 mg PO DAILY [facility] Last Admin: 03/19/16 09:27 Dose: 80 mg Heparin Sodium (Porcine) (Heparin -) 5,000 unit SQ BID [facility] Last Admin: 03/20/16 09:10 Dose: 5,000 unit Methimazole (Tapazole -) 5 mg PO DAILY [facility] Last Admin: 03/19/16 09:28 Dose: 5 mg Metoprolol Succinate (Toprol Xl -) 50 mg PO BID [facility] Last Admin: 03/19/16 22:50 Dose: 50 mg Metronidazole (Flagyl -) 500 mg PO TID [facility] Last Admin: 03/20/16 05:57 Dose: 500 mg A/P 66 year old woman with PMhx of ESRD on HD (TTS at [facility]) , Hypertension, DM, Hep C who presented with complaints of Abd pain and loose stools and found to have SVT and fever. #ESRD on HD/Hypervolemia for dialysis later today Doppler of AVF showed stenosis as per vascular Sx -> for angioplasty tomorrow #Diarrhea/C-dif on PO flagyl C-Diff antigen positive, Toxin negative #SVT rate control as per cardiology on metoprolol and cardizem #Renal Osteodystrophy Check Phos Vit D analog with Hd #CKD related Anemia Hgb at goal Jon Paz DO
[2016-03-20 13:18] LABS: CALCIUM 8.7 mg/dL (8.5-10.1); CREATININE 3.4 mg/dL (0.55-1.02); MCH 26.5 pg (25.7-33.7); MEAN CELL VOLUME 82.9 fl (80-96); MEAN PLT VOLUME 9.5 fl (7.5-11.1); PLATELET COUNT 234 K/MM3 (134-434); RDW 15.1 % (11.6-15.6)
--- NOTE | 2016-03-20 13:49 | PN ---
Progress Note (short form) - Note Progress Note: Vascular Surgery For venogram, venoplasty left avf in am. NPO past midnight. Chris Nick DO
[2016-03-20] MEDS: FUROSEMIDE 40 MG TABLET (FP) PO SCH (15:38)
[2016-03-20] MEDS: METOPROLOL SUCCINATE 50 MG TAB.SR.24H (FP) PO SCH (15:39)
[2016-03-20] MEDS: METHIMAZOLE 5 MG TABLET (FP) PO SCH (15:39)
--- NOTE | 2016-03-20 16:45 | PN ---
Progress Note, Physician Chief Complaint: colitis History of Present Illness: still having lots of diarrhea; denies sob or orthopnea; has had no more palpitations since in hospital; no cp/pressure no cigs - Current Medication List Current Medications: Active Medications Atorvastatin Calcium (Lipitor -) 10 mg PO HS [facility] Last Admin: 03/19/16 22:49 Dose: 10 mg Diltiazem HCl (Cardizem -) 60 mg PO TID [facility] Last Admin: 03/20/16 15:39 Dose: 60 mg Dipyridamole/Aspirin (Aggrenox -) 1 combo PO BID [facility] Last Admin: 03/20/16 09:09 Dose: 1 combo Ferrous Sulfate (Feosol -) 325 mg PO TIDCM [facility] Last Admin: 03/20/16 15:39 Dose: 325 mg Furosemide (Lasix -) 80 mg PO DAILY [facility] Last Admin: 03/20/16 15:38 Dose: 80 mg Heparin Sodium (Porcine) (Heparin -) 5,000 unit SQ BID [facility] Last Admin: 03/20/16 09:10 Dose: 5,000 unit Methimazole (Tapazole -) 5 mg PO DAILY [facility] Last Admin: 03/20/16 15:39 Dose: 5 mg Metoprolol Succinate (Toprol Xl -) 50 mg PO BID [facility] Last Admin: 03/20/16 15:39 Dose: 50 mg Metronidazole (Flagyl -) 500 mg PO TID [facility] Last Admin: 03/20/16 15:39 Dose: 500 mg - Objective Vital Signs: Vital Signs Temperature 98.2 F 03/20/16 15:35 Pulse Rate 89 03/20/16 15:35 Respiratory Rate 18 03/20/16 15:35 Blood Pressure 147/87 03/20/16 15:35 O2 Sat by Pulse Oximetry (%) 100 03/20/16 09:00 Constitutional: Yes: No Distress, Calm Eyes: No: Sclera Icterus HENT: No: Nasal Congestion Cardiovascular: Yes: Regular Rate and Rhythm, S1, S2, Other (PMI non diplaced). No: JVD, Gallop, Murmur Respiratory: Yes: CTA Bilaterally. No: Accessory Muscle Use, Rales, Wheezes Gastrointestinal: Yes: Normal Bowel Sounds, Soft. No: Tenderness Musculoskeletal: Yes: Other (No kyphosis) Extremities: No: Cold, Cyanosis Edema: No Integumentary: No: Jaundice Neurological: Yes: Alert, Oriented (x3) Psychiatric: No: Agitated Labs: CBC, BMP 03/20/16 11:45 03/20/16 11:45 INR, PTT INR 1.12 (0.82-1.09) 03/11/16 15:50 Assessment/Plan Echo 03/12/16: mild LV dilation. Moderately reduced LV fn. Severe apical wall HK. MIld LAE. Mod-sev MR. Mod TR. RVSP 30-40. Echo 12/2015 report: mild dec lvef, global hk, rv tds, mod-sev mr -images reviewed by prior cardiology consult: MR is moderate Echo 04/2015: nl lv/rv/valves Assessment/Plan 66-year-old with h/o prior admissions for sob/respiratory failure, hypertension , CVA 2012 on aggrenox, SVT (new dx on prior admission) with associated new cardiomyopathy (tachymyopathy? vs. stress inducedhad subsequent normalization of function), THN, HL, ESRD on HD, chronic pulmonary disease, GERD, diabetes, thyroid abnormality on methimazole, multiple abd surgeries including hysterectomy and appendectomy presenting with abdominal pain fever and found SVT . 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 Febrile illness as possible trigger? - no indication for AC for this rhythm - SVT controlled, cont toprol and cont dilt (note: she is more responsive to diltiazem than metoprolol but given her reduced lvef trying to avoid increasing dilt if possible) - if has breakthru SVTs, or if EF remains depressed even once SVT is well controlled (i.e. on f/u outpt echo), will need to consider ablation and stop diltiazem Cardiomyopathy - progressive drop in EF over the course of the year. On past admit in december only mildly depressed EF, thought to have contribution from tachymyopathy vs. stress induced, currently moderately reduced with global HK, apex appears worse - options include ischemia eval now, vs reassess EF in 2-3mo once SVTs appear controlled and tachy-CMP presumably would have recovered - disc'd options with pt, including risk of MVDz with balanced ischemia even if MPI shows no perfusion abnormality--with low but finite risk of severe ischemic complication if treat her medically in this instance, while waiting to f/u EF in future - she strongly desires to leave hospital as currently scheduled in 2d, given frequent, prolonged hosp stays in past few months - she verbalizes understanding of above facts and states she prefers start with nuclear and accept low risk of false negative if it's normal - i also advised her that if EF is normalized on nuclear scans, it strongly argues that the low EF on admit echo was tachy-related (now SVTs well controlled for close to 2 wks), which would also make hi-risk underlying CAD much less likely and med mgmt a very safe option - will plan persantine pharm MPI tomorrow - given the hi likelihood that her syst dysfxn is due to tachy, it is reasonable to continue diltiazem for now, as her SVT responds much better to this, until EF can be reassessed in next 2 mo or so - Currently doesn't appear significantly volume overloaded. Con't po lasix and volume management per HD/UF/renal. Mitral regurgitation -vol mgmt primarily via HD/UF, per renal -MR only moderate, and not etiologic in chf per my review of 12/17 echo, again being reported as "[id number]" on current 03/20 study -no murmur on exam, no chf -suspect not severe MR, echo needs review by our team elevated troponin: -trop here 0.5 x3, not c/w ACS -likely sec to rapid SVT causing mild Type II AL, vs ESRD pt, vs chronic hi filling pressures/chf -nonspecific TWAs on ekg's here also may be sec to recurrent rapid SVT (? had this as well in [place], causing changes on initial ecg here) -nuclear stress test planned for 03/21 -she is already on prison ASA (Aggrenox), statin added here, cont bb chronic lung dz, ? ILDz: - resp failure during prior admit with pulm infiltrates of unclear etiology, suspected ILDz of ? etiology, clinically improved with empiric steroids trial, open lung bx deferred (bronch was unrevealing) - 12/[address] dilated IVC but only small effusions, with upper lobe infiltrates more c/w PNA than chf (dr devi review: recurrent consolidation in changing locations/distributions in comparison to prior CT, possibly c/w cryptogenic organizing pneumonia/BOOP). HTN -cont same meds for now, monitor ESRD, on HD: -s/p renal bx last time here c/w DM nephropathy -HD per renal h/o CVA - has been on aggrenox
[2016-03-20] MEDS: ATORVASTATIN CA 10 MG TABLET (FP) PO SCH (21:18)
--- NOTE | 2016-03-20 21:34 | PN ---
Progress Note, Physician History of Present Illness: No fever, chills, dizziness, palp, CP, SOB, abd pain, V, N. Pt fewer episodes of diarrhea last night, better this AM - Current Medication List Current Medications: Active Medications Atorvastatin Calcium (Lipitor -) 10 mg PO HS [facility] Last Admin: 03/20/16 21:18 Dose: 10 mg Diltiazem HCl (Cardizem -) 60 mg PO TID [facility] Last Admin: 03/20/16 15:39 Dose: 60 mg Dipyridamole/Aspirin (Aggrenox -) 1 combo PO BID [facility] Last Admin: 03/20/16 21:18 Dose: 1 combo Ferrous Sulfate (Feosol -) 325 mg PO TIDCM [facility] Last Admin: 03/20/16 16:49 Dose: Not Given Furosemide (Lasix -) 80 mg PO DAILY [facility] Last Admin: 03/20/16 15:38 Dose: 80 mg Heparin Sodium (Porcine) (Heparin -) 5,000 unit SQ BID [facility] Last Admin: 03/20/16 21:18 Dose: 5,000 unit Methimazole (Tapazole -) 5 mg PO DAILY [facility] Last Admin: 03/20/16 15:39 Dose: 5 mg Metoprolol Succinate (Toprol Xl -) 50 mg PO BID [facility] Last Admin: 03/20/16 15:39 Dose: 50 mg Metronidazole (Flagyl -) 500 mg PO TID [facility] Last Admin: 03/20/16 21:17 Dose: 500 mg - Objective Vital Signs: Vital Signs Temperature 98.2 F 03/20/16 18:00 Pulse Rate 70 03/20/16 18:00 Respiratory Rate 20 03/20/16 18:00 Blood Pressure 100/54 03/20/16 18:00 O2 Sat by Pulse Oximetry (%) 100 03/20/16 09:00 Constitutional: Yes: No Distress, Calm Cardiovascular: Yes: Regular Rate and Rhythm, S1, S2 Respiratory: Yes: Regular, CTA Bilaterally. No: Rales Gastrointestinal: Yes: Normal Bowel Sounds, Soft, Abdomen, Obese. No: Tenderness Edema: No Neurological: Yes: Alert, Oriented Labs: CBC, BMP 03/20/16 11:45 03/20/16 11:45 INR, PTT INR 1.12 (0.82-1.09) 03/11/16 15:50 Problem List - Problems (1) SVT (supraventricular tachycardia) Assessment/Plan: Controlled; on metoprolol and diltiazem. Cardio f/u appreciated Code(s): I47.1 - SUPRAVENTRICULAR TACHYCARDIA (2) C. difficile colitis Assessment/Plan: On PO Flagyl ID and GI f/u appreciated. Code(s): A04.7 - ENTEROCOLITIS DUE TO CLOSTRIDIUM DIFFICILE (3) End stage renal disease on dialysis Assessment/Plan: On HD- needs HD access revision; for OR in AM. Renal f/u appreciated. Vasc Sx f/u appreciated Code(s): N18.6 - END STAGE RENAL DISEASE Z99.2 - DEPENDENCE ON RENAL DIALYSIS (4) Diabetes Code(s): E11.9 - TYPE 2 DIABETES MELLITUS WITHOUT COMPLICATIONS Qualifiers: Diabetes mellitus type: type 2 Diabetes mellitus complication status: without complication (5) Hypertension Assessment/Plan: cont. meds Code(s): I10 - ESSENTIAL (PRIMARY) HYPERTENSION (6) Hepatitis C Code(s): B19.20 - UNSPECIFIED VIRAL HEPATITIS C WITHOUT HEPATIC COMA (7) Anemia Assessment/Plan: Pt with CRF, on HD and anemia Code(s): D64.9 - ANEMIA, UNSPECIFIED Qualifiers: Other causes of anemia: chronic disease, kidney Assessment/Plan Might be Dc'ed home tomorrow pending Vasc Sx. input
[2016-03-21] MEDS: metroNIDAZOLE 250 MG TABLET PO SCH ×3 (06:13→21:18)
[2016-03-21] MEDS: FERROUS SO4 325 MG TABLET (FP) PO SCH ×3 (08:18→16:47)
[2016-03-21] MEDS ORDERED: HEPARIN NA (PORCINE) 5,000 UNITS/ML 1ML VIAL ONE (09:54)
[2016-03-21] MEDS ORDERED: LIDOCAINE HCL 1%, 10 MG/ML (20ML VIAL) ONE (09:55)
[2016-03-21] MEDS ORDERED: DIPYRIDAMOLE STRESS TEST 50 MG in DEXTROSE 5%-WATER - 40 ML IVPB ONE (10:00)
[2016-03-21] MEDS: FUROSEMIDE 40 MG TABLET (FP) PO SCH (10:34)
[2016-03-21] MEDS: METHIMAZOLE 5 MG TABLET (FP) PO SCH (10:34)
[2016-03-21] MEDS: ASPIRIN/DIPYRIDAMOLE 25 MG/200 MG CAPSULE (FP) PO SCH ×2 (10:34→21:18)
--- NOTE | 2016-03-21 11:26 | PN ---
Progress Note, Physician History of Present Illness: No fever, chills, dizziness, palp, CP, SOB, abd pain, V, N. Pt fewer episodes of diarrhea last night. Pt for Stress Test this AM - Current Medication List Current Medications: Active Medications Atorvastatin Calcium (Lipitor -) 10 mg PO HS [facility] Last Admin: 03/20/16 21:18 Dose: 10 mg Diltiazem HCl (Cardizem -) 60 mg PO TID [facility] Last Admin: 03/20/16 15:39 Dose: 60 mg Dipyridamole/Aspirin (Aggrenox -) 1 combo PO BID [facility] Last Admin: 03/21/16 10:34 Dose: Not Given Ferrous Sulfate (Feosol -) 325 mg PO TIDCM [facility] Last Admin: 03/21/16 08:18 Dose: Not Given Furosemide (Lasix -) 80 mg PO DAILY [facility] Last Admin: 03/21/16 10:34 Dose: Not Given Heparin Sodium (Porcine) (Heparin -) 5,000 unit SQ BID [facility] Last Admin: 03/20/16 21:18 Dose: 5,000 unit Methimazole (Tapazole -) 5 mg PO DAILY [facility] Last Admin: 03/21/16 10:34 Dose: Not Given Metoprolol Succinate (Toprol Xl -) 50 mg PO BID [facility] Last Admin: 03/20/16 15:39 Dose: 50 mg Metronidazole (Flagyl -) 500 mg PO TID [facility] Last Admin: 03/21/16 06:13 Dose: Not Given - Objective Vital Signs: Vital Signs Temperature 97.5 F L 03/21/16 08:59 Pulse Rate 86 03/21/16 08:59 Respiratory Rate 20 03/21/16 08:59 Blood Pressure 115/78 03/21/16 08:59 O2 Sat by Pulse Oximetry (%) 100 03/21/16 09:00 Constitutional: Yes: No Distress, Calm Cardiovascular: Yes: Regular Rate and Rhythm, S1, S2 Respiratory: Yes: Regular, CTA Bilaterally. No: Rales Gastrointestinal: Yes: Normal Bowel Sounds, Soft, Abdomen, Obese. No: Tenderness Edema: No Neurological: Yes: Alert, Oriented Labs: CBC, BMP 03/20/16 11:45 03/20/16 11:45 INR, PTT INR 1.12 (0.82-1.09) 03/11/16 15:50 Problem List - Problems (1) SVT (supraventricular tachycardia) Assessment/Plan: Controlled; on metoprolol and diltiazem. Cardio f/u appreciated. For Stress test today Code(s): I47.1 - SUPRAVENTRICULAR TACHYCARDIA (2) C. difficile colitis Assessment/Plan: On PO Flagyl ID and GI f/u appreciated. Code(s): A04.7 - ENTEROCOLITIS DUE TO CLOSTRIDIUM DIFFICILE (3) End stage renal disease on dialysis Assessment/Plan: On HD- needs HD access revision; for OR today pending Cardio clearance Renal f/u appreciated. Vasc Sx f/u appreciated Code(s): N18.6 - END STAGE RENAL DISEASE Z99.2 - DEPENDENCE ON RENAL DIALYSIS (4) Diabetes Code(s): E11.9 - TYPE 2 DIABETES MELLITUS WITHOUT COMPLICATIONS Qualifiers: Diabetes mellitus type: type 2 Diabetes mellitus complication status: without complication (5) Hypertension Assessment/Plan: cont. meds Code(s): I10 - ESSENTIAL (PRIMARY) HYPERTENSION (6) Hepatitis C Code(s): B19.20 - UNSPECIFIED VIRAL HEPATITIS C WITHOUT HEPATIC COMA (7) Anemia Assessment/Plan: Pt with CRF, on HD and anemia Code(s): D64.9 - ANEMIA, UNSPECIFIED Qualifiers: Other causes of anemia: chronic disease, kidney Assessment/Plan Labs at HD
[2016-03-21] MEDS: HEPARIN NA (PORCINE) 5,000 UNITS/ML 1ML VIAL SQ SCH ×3 (11:38→21:22)
[2016-03-21] MEDS: dilTIAZem HCL 60 MG TABLET (FP) PO SCH ×2 (13:54→21:18)
--- NOTE | 2016-03-21 13:58 | PN ---
Progress Note (short form) - Note Progress Note: Renal follow up for ESRD Pt seen and examined at the bedside upset about no eating no chest pain or sob unable to do stress test awaiting angioplasty of the AVF Vital Signs Temperature 97.5 F L 03/21/16 08:59 Pulse Rate 86 03/21/16 08:59 Respiratory Rate 20 03/21/16 08:59 Blood Pressure 115/78 03/21/16 08:59 O2 Sat by Pulse Oximetry (%) 100 03/21/16 09:00 Intake & Output 03/18/16 03/19/16 03/20/16 03/21/16 23:59 23:59 23:59 23:59 Intake Total 147 092 5959 0 Balance 491 739 0515 0 Weight 205 lb 1 oz 205 lb 8 oz 208 lb 6 oz 201 lb 4 oz Gen: NAD, awake and alert CVS: RRR, No M/R Lungs: CTA no rales or wheeze. Abd: Obese, mild tenderness Ext: No edema, clubbing or cyanosis CBC, BMP 03/20/16 11:45 03/20/16 11:45 Current Medications Atorvastatin Calcium (Lipitor -) 10 mg PO HS [facility] Last Admin: 03/20/16 21:18 Dose: 10 mg Diltiazem HCl (Cardizem -) 60 mg PO TID [facility] Last Admin: 03/21/16 13:54 Dose: Not Given Dipyridamole/Aspirin (Aggrenox -) 1 combo PO BID [facility] Last Admin: 03/21/16 10:34 Dose: Not Given Ferrous Sulfate (Feosol -) 325 mg PO TIDCM [facility] Last Admin: 03/21/16 12:58 Dose: Not Given Furosemide (Lasix -) 80 mg PO DAILY [facility] Last Admin: 03/21/16 10:34 Dose: Not Given Heparin Sodium (Porcine) (Heparin -) 5,000 unit SQ BID [facility] Last Admin: 03/21/16 11:38 Dose: Not Given Methimazole (Tapazole -) 5 mg PO DAILY [facility] Last Admin: 03/21/16 10:34 Dose: Not Given Metoprolol Succinate (Toprol Xl -) 50 mg PO BID [facility] Last Admin: 03/20/16 15:39 Dose: 50 mg Metronidazole (Flagyl -) 500 mg PO TID [facility] Last Admin: 01/18/17 13:54 Dose: Not Given A/P 66 year old woman with PMhx of ESRD on HD (TTS at [facility]) , Hypertension, DM, Hep C who presented with complaints of Abd pain and loose stools and found to have SVT and fever. #ESRD on HD/Hypervolemia no indication for dialysis today next treatment tomorrow for angioplasty of developing AVF today #Diarrhea/C-dif on PO flagyl C-Diff antigen positive, Toxin negative #SVT rate control as per cardiology on metoprolol and cardizem #Renal Osteodystrophy Check Phos Vit D analog with Hd #CKD related Anemia Hgb at goal Jon Paz DO
[2016-03-21] MEDS ORDERED: ONDANSETRON 4 MG/2 ML VIAL IVPUSH PRN ×2 (16:31→17:40)
[2016-03-21] MEDS ORDERED: PROMETHAZINE HCL 25 MG/1 ML VIAL IVPUSH PRN ×2 (16:31→17:40)
[2016-03-21] MEDS ORDERED: SODIUM CHLORIDE 1,000 ML IV SCH (16:45)
[2016-03-21] MEDS ORDERED: ceFAZolin SODIUM 1 GM VIAL IVPB ONE ×2 (16:45)
[2016-03-21] MEDS ORDERED: LIDOCAINE HCL 1%, 10 MG/ML (20ML VIAL) IJ ONE ×2 (17:02)
--- NOTE | 2016-03-21 17:21 | OP ---
Operative Note - Note: Operative Date: 03/21/16 Pre-Operative Diagnosis: immature left avf Operation: Vengogram, balloon maturation of left avf Findings: Vein 5mm ---> balloon maturation performed to 8mm Post-Operative Diagnosis: Same as Pre-op Surgeon: Chris Nick Anesthesia: Fractional Estimated Blood Loss (mls): 5 Operative Report Dictated: Yes
--- NOTE | 2016-03-21 17:23 | PN ---
Progress Note (short form) - Note Progress Note: VAscular Surgery BAlloon maturation of left avf performed Fistula ballooned to 8mm Can place one needle in avf in one week. Cleared for DC from vascular standpoint. Chris Nick DO
[2016-03-21] MEDS: ATORVASTATIN CA 10 MG TABLET (FP) PO SCH (21:18)
[2016-03-21] MEDS: METOPROLOL SUCCINATE 50 MG TAB.SR.24H (FP) PO SCH (21:18)
[2016-03-22] MEDS: dilTIAZem HCL 60 MG TABLET (FP) PO SCH ×3 (05:25→21:43)
[2016-03-22] MEDS: metroNIDAZOLE 250 MG TABLET PO SCH ×3 (05:25→21:46)
[2016-03-22] MEDS: FERROUS SO4 325 MG TABLET (FP) PO SCH ×3 (08:34→18:11)
[2016-03-22] MEDS ORDERED: PARICALCITOL 5 MCG/ML VIAL IVPUSH ONE ×2 (09:00→11:15)
[2016-03-22] MEDS: HEPARIN NA (PORCINE) 5,000 UNITS/ML 1ML VIAL SQ SCH ×2 (09:17→23:11)
[2016-03-22] MEDS: METHIMAZOLE 5 MG TABLET (FP) PO SCH (09:17)
[2016-03-22] MEDS: FUROSEMIDE 40 MG TABLET (FP) PO SCH (09:17)
--- NOTE | 2016-03-22 09:23 | DS ---
[id number] Rate 20 03/22/16 09:07 Blood Pressure 111/55 03/22/16 09:07 O2 Sat by Pulse Oximetry (%) 98 03/21/16 18:29 Findings/Remarks: Pt. w/o CP, palp., dizziness, SOB, abd pain, N, V. Pt with one episode of lose stool yesterday and today. Constitutional: Yes: No Distress, Calm Cardiovascular: Yes: Regular Rate and Rhythm, S1, S2 Respiratory: Yes: Regular, CTA Bilaterally Gastrointestinal: Yes: Normal Bowel Sounds, Soft, Abdomen, Obese. No: Palpable Mass, Tenderness Edema: No Neurological: Yes: Alert, Oriented Labs: CBC, BMP 03/20/16 11:45 03/20/16 11:45 Discharge Summary Reason For Visit: ESRD ELEVATED TROPONIN SVT Current Active Problems ACS (acute coronary syndrome) (Acute) Abdominal pain (Acute) Acute diarrhea (Acute) C. difficile colitis (Acute) Elevated troponin (Acute) End stage renal disease on dialysis (Acute) Gastroenteritis (Acute) Hepatitis C (Acute) History of hepatitis C (Acute) Muscle contusion (Acute) SVT (supraventricular tachycardia) (Acute) Procedures: Principal: Abd./ Pelvis CTscan, ECHO Other Procedures: CXR Hospital Course: Pt came to ER c/o N, V, diarrhea. In ER she was noticed to have SVT received IV cardizem, admitted to telemetry; HR was controlled with BB and Ca Vivi; pt was startedon Abtx for C. Diff colitis. Pt with left AVF, needed revision by Vasc Sx. Pt was seen in consult by Cardio ( Dr. Hernandez/ Arsalan), ID ( Dr. Caldwell / Dio), Renal ( Dr. Paz), Vasx Sx ( Dr. Nick). Pt. improved; Stress test was attempted but not perform secondary to poor IV access; pt to have ECHO repeated today and if cleared by cardio to be DC'ed home with Follow up wiht our office, cardio office. Condition: Improved - Instructions Diet, Activity, Other Instructions: Renal Diet. To f/u with Dr. Villarreal within a week. To f/u with Dr. Johnson/ David in 1 to 2 weeks or as scheduled. Referrals: Rebecca Villarreal [Primary Care Provider] - (in 1 week. Call for appointment.) Garfield Arriaza MD [Staff Physician] - (in 1 - 2 weeks.) Disposition: HOME - Home Medications Comprehensive Discharge Medication List: Ambulatory Orders Aspirin/Dipyridamole [Aggrenox -] 1 combo PO BID 12/23/15 Methimazole 5 mg PO DAILY 12/23/15 Clonidine HCl [Catapres -] 0.1 mg PO TID #0 tablet 01/12/16 Diltiazem Cd [Cardizem Cd -] 120 mg PO DAILY cap.cd.24h 01/12/16 Ferrous Sulfate [Feosol] 325 mg PO TIDCM ud 01/12/16 Furosemide [Lasix -] 80 mg PO DAILY tablet 01/12/16 Metoprolol Succinate [Toprol XL -] 25 mg PO BID tab.sr.24h 01/12/16 Nifedipine ER [Procardia XL -] 60 mg PO BID tab.er.24 01/12/16
[2016-03-22] MEDS: METOPROLOL SUCCINATE 50 MG TAB.SR.24H (FP) PO SCH (09:31)
[2016-03-22 12:25] LABS: CALCIUM 8.2 mg/dL (8.5-10.1); CREATININE 3.5 mg/dL (0.55-1.02)
--- NOTE | 2016-03-22 13:06 | PN ---
Progress Note (short form) - Note Progress Note: Renal follow up for ESRD Pt seen and examined during dialysis no acute complaints atthis time BP stable, catheter with good function Goal UF is 2.5L Vital Signs Temperature 98.1 F 03/22/16 10:50 Pulse Rate 85 03/22/16 12:52 Respiratory Rate 18 03/22/16 12:52 Blood Pressure 124/75 03/22/16 12:52 O2 Sat by Pulse Oximetry (%) 100 03/22/16 09:00 Intake & Output 03/19/16 03/20/16 03/21/16 03/22/16 23:59 23:59 23:59 23:59 Intake Total 430 1130 450 0 Balance 430 1130 450 0 Weight 205 lb 8 oz 208 lb 6 oz 201 lb 4 oz Gen: NAD, awake and alert CVS: RRR, No M/R Lungs: CTA no rales or wheeze. Abd: Obese, mild tenderness Ext: No edema, clubbing or cyanosis CBC, BMP 03/20/16 11:45 03/22/16 11:00 Current Medications Atorvastatin Calcium (Lipitor -) 10 mg PO HS [facility] Last Admin: 03/21/16 21:18 Dose: 10 mg Diltiazem HCl (Cardizem -) 60 mg PO TID [facility] Last Admin: 03/22/16 05:25 Dose: 60 mg Dipyridamole/Aspirin (Aggrenox -) 1 combo PO BID [facility] Last Admin: 03/21/16 21:18 Dose: 1 combo Fentanyl (Sublimaze Injection -) 50 mcg IVPUSH [id number] PRN PRN Reason: PAIN Stop: 03/24/16 16:32 Ferrous Sulfate (Feosol -) 325 mg PO TIDCM [facility] Last Admin: 03/22/16 12:19 Dose: Not Given Furosemide (Lasix -) 80 mg PO DAILY [facility] Last Admin: 03/22/16 09:17 Dose: 80 mg Heparin Sodium (Porcine) (Heparin -) 5,000 unit SQ BID [facility] Last Admin: 03/22/16 09:17 Dose: 5,000 unit Sodium Chloride (Normal Saline -) 1,000 mls @ 42 mls/hr IV ASDIR [facility] Methimazole (Tapazole -) 5 mg PO DAILY [facility] Last Admin: 03/22/16 09:17 Dose: 5 mg Metoprolol Succinate (Toprol Xl -) 50 mg PO BID [facility] Last Admin: 03/22/16 09:31 Dose: Not Given Metronidazole (Flagyl -) 500 mg PO TID [facility] Last Admin: 03/22/16 05:25 Dose: 500 mg A/P 66 year old woman with PMhx of ESRD on HD (TTS at [facility]) , Hypertension, DM, Hep C who presented with complaints of Abd pain and loose stools and found to have SVT and fever. #ESRD on HD/Hypervolemia Tolerating dialysis well s/p angioplasty of developing AVF -> vascular follow up as outpatient #Diarrhea/C-dif on PO flagyl C-Diff antigen positive, Toxin negative #SVT rate control as per cardiology on metoprolol and cardizem #Renal Osteodystrophy Check Phos Vit D analog with Hd #CKD related Anemia Hgb at goal Jon Paz DO
[2016-03-22] MEDS ORDERED: PT OWN MED DRAWER 7, Y5N ONE (14:46)
[2016-03-22] MEDS: ASPIRIN/DIPYRIDAMOLE 25 MG/200 MG CAPSULE (FP) PO SCH ×2 (14:47→21:43)
[2016-03-22] MEDS: SODIUM CHLORIDE 1,000 ML IV SCH ×2 (18:08→21:39)
--- NOTE | 2016-03-22 18:08 | PN ---
Progress Note (short form) - Note Progress Note: Chief Complaint: colitis History of Present Illness: still having diarrhea; Intermittent episodes of profound presyncope. Episode occurred during evaluation and coincided with SVT on exam/hypotension on vitals. no cp, sob, orthopnea, le edema no cigs Current Medications Atorvastatin Calcium (Lipitor -) 10 mg PO HS [facility] Last Admin: 03/21/16 21:18 Dose: 10 mg Diltiazem HCl (Cardizem -) 60 mg PO TID [facility] Last Admin: 03/22/16 14:48 Dose: 60 mg Dipyridamole/Aspirin (Aggrenox -) 1 combo PO BID [facility] Last Admin: 03/22/16 14:47 Dose: 1 combo Fentanyl (Sublimaze Injection -) 50 mcg IVPUSH [id number] PRN PRN Reason: PAIN Stop: 03/24/16 16:32 Ferrous Sulfate (Feosol -) 325 mg PO TIDCM [facility] Last Admin: 03/22/16 12:19 Dose: Not Given Furosemide (Lasix -) 80 mg PO DAILY [facility] Last Admin: 03/22/16 09:17 Dose: 80 mg Heparin Sodium (Porcine) (Heparin -) 5,000 unit SQ BID [facility] Last Admin: 03/22/16 09:17 Dose: 5,000 unit Sodium Chloride (Normal Saline -) 1,000 mls @ 42 mls/hr IV ASDIR [facility] Methimazole (Tapazole -) 5 mg PO DAILY [facility] Last Admin: 03/22/16 09:17 Dose: 5 mg Metoprolol Succinate (Toprol Xl -) 50 mg PO BID [facility] Last Admin: 03/22/16 09:31 Dose: Not Given Metronidazole (Flagyl -) 500 mg PO TID [facility] Last Admin: 03/22/16 14:48 Dose: 500 mg Vital Signs - 24 hr 03/21/16 03/21/16 03/22/16 18:29 23:45 06:00 Temperature 97.9 F 97.9 F 98.1 F Pulse Rate 82 82 79 Respiratory 20 20 20 Rate Blood Pressure 154/73 151/73 159/91 O2 Sat by Pulse 98 Oximetry (%) 03/22/16 03/22/16 03/22/16 09:00 09:07 10:50 Temperature 98.1 F 98.1 F Pulse Rate 87 73 Respiratory 18 20 18 Rate Blood Pressure 111/55 155/86 O2 Sat by Pulse 100 Oximetry (%) 03/22/16 03/22/16 03/22/16 10:55 11:25 11:55 Temperature Pulse Rate 68 73 75 Respiratory 18 18 18 Rate Blood Pressure 157/84 150/87 143/71 O2 Sat by Pulse Oximetry (%) 03/22/16 03/22/16 03/22/16 12:25 12:55 13:25 Temperature Pulse Rate 82 85 89 Respiratory 18 18 18 Rate Blood Pressure 137/72 124/75 113/70 O2 Sat by Pulse Oximetry (%) 03/22/16 03/22/16 03/22/16 13:55 14:00 17:03 Temperature 98.2 F Pulse Rate 87 80 89 Respiratory 18 18 21 Rate Blood Pressure 128/75 149/93 101/52 O2 Sat by Pulse Oximetry (%) Intake & Output 03/20/16 03/21/16 03/22/16 03/23/16 07:59 07:59 07:59 07:59 Intake Total 360 950 450 500 Balance 360 950 450 500 Weight 208 lb 6 oz 201 lb 4 oz Constitutional: Yes: No Distress, Calm Eyes: No: Sclera Icterus HENT: No: Nasal Congestion Cardiovascular: Yes: tachycardic and Rhythm, S1, S2, Other (PMI non diplaced). No: JVD, Gallop, Murmur Respiratory: Yes: CTA Bilaterally. No: Accessory Muscle Use, Rales, Wheezes Gastrointestinal: Yes: Normal Bowel Sounds, Soft. No: Tenderness Musculoskeletal: Yes: Other (No kyphosis) Extremities: No: Cold, Cyanosis Edema: No Integumentary: No: Jaundice Neurological: Yes: Alert, Oriented (x3) Psychiatric: No: Agitated Labs: CBC, BMP 03/20/16 11:45 03/22/16 11:00 Assessment/Plan Echo 03/22/16: Mod LV global systolic dysfunction. Nl RV. trace MR. (Per echo report, no significant difference in EF's of all echos) Echo 03/12/16: mild LV dilation. Moderately reduced LV fn. Severe apical wall HK. MIld LAE. Mod-sev MR. Mod TR. RVSP 30-40. Echo 12/2015 report: mild dec lvef, global hk, rv tds, mod-sev mr -images reviewed by prior cardiology consult: MR is moderate Echo 04/2015: nl lv/rv/valves Assessment/Plan 66-year-old with h/o prior admissions for sob/respiratory failure, hypertension , CVA 2012 on aggrenox, SVT (new dx on prior admission) with associated new cardiomyopathy (tachymyopathy? vs. stress inducedhad subsequent normalization of function), THN, HL, ESRD on HD, chronic pulmonary disease, GERD, diabetes, thyroid abnormality on methimazole, multiple abd surgeries including hysterectomy and appendectomy presenting with abdominal pain fever and found SVT . 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 Febrile illness as possible trigger? - no indication for AC for this rhythm - 03/22 episodes of frequent recurrent SVT on exam. will transfer to [facility] and uptitrate meds (increase diltiazem to 90 mg TID) - if has breakthru SVTs, or if EF remains depressed even once SVT is well controlled (i.e. on f/u outpt echo), will need to consider ablation and stop diltiazem Cardiomyopathy - progressive drop in EF over the course of the year. On past admit in december only mildly depressed EF, thought to have contribution from tachymyopathy vs. stress induced, currently moderately reduced with global HK, apex appears worse --> Dr. Hernandez reviewed echo images. EF appears relatively unchanged overall. Ok to further work up as outpatient. (unable to get stress testing here due to inability to get appropriate IV access) - given the hi likelihood that her syst dysfxn is due to tachy, it is reasonable to continue diltiazem for now, as her SVT responds much better to this, until EF can be reassessed in next 2 mo or so - Currently doesn't appear significantly volume overloaded. Con't po lasix and volume management per HD/UF/renal. Mitral regurgitation, resolved. -vol mgmt primarily via HD/UF, per renal -resolved on most recent echo. elevated troponin: -trop here 0.5 x3, not c/w ACS -likely sec to rapid SVT causing mild Type II [place], vs ESRD pt, vs chronic hi filling pressures/chf -nonspecific TWAs on ekg's here also may be sec to recurrent rapid SVT (? had this as well in [place], causing changes on initial ecg here) -unable to obtain nuclear stress test -she is already on detention ASA (Aggrenox), statin added here, cont bb chronic lung dz, ? ILDz: - resp failure during prior admit with pulm infiltrates of unclear etiology, suspected ILDz of ? etiology, clinically improved with empiric steroids trial, open lung bx deferred (bronch was unrevealing) - 12/[address] dilated IVC but only small effusions, with upper lobe infiltrates more c/w PNA than chf (dr devi review: recurrent consolidation in changing locations/distributions in comparison to prior CT, possibly c/w cryptogenic organizing pneumonia/BOOP). HTN -cont same meds for now, monitor ESRD, on HD: -s/p renal bx last time here c/w DM nephropathy -HD per renal h/o CVA - has been on aggrenox
[2016-03-22] MEDS ORDERED: dilTIAZem HCL 50 MG/10 ML - 10 ML VIAL IVPUSH PRN (19:09)
[2016-03-22] MEDS: ATORVASTATIN CA 10 MG TABLET (FP) PO SCH (21:42)
[2016-03-22] MEDS ORDERED: dilTIAZem HCL 30 MG TABLET (FP) PO ONE (22:17)
[2016-03-22] MEDS: METOPROLOL SUCCINATE 100 MG TAB.SR.24H (FP) PO SCH (23:10)
[2016-03-23] MEDS: metroNIDAZOLE 250 MG TABLET PO SCH ×3 (06:38→21:45)
[2016-03-23] MEDS: dilTIAZem HCL 30 MG TABLET (FP) PO SCH ×3 (06:39→21:46)
[2016-03-23] MEDS ORDERED: PT OWN MED DRAWER 7, Y5N ONE (10:16)
[2016-03-23] MEDS: HEPARIN NA (PORCINE) 5,000 UNITS/ML 1ML VIAL SQ SCH ×2 (10:24→21:45)
[2016-03-23] MEDS: METOPROLOL SUCCINATE 100 MG TAB.SR.24H (FP) PO SCH ×2 (10:24→21:46)
[2016-03-23] MEDS: ASPIRIN/DIPYRIDAMOLE 25 MG/200 MG CAPSULE (FP) PO SCH ×2 (10:25→21:47)
[2016-03-23] MEDS: FUROSEMIDE 40 MG TABLET (FP) PO SCH (10:25)
[2016-03-23] MEDS: FERROUS SO4 325 MG TABLET (FP) PO SCH ×3 (10:25→17:34)
[2016-03-23] MEDS: METHIMAZOLE 5 MG TABLET (FP) PO SCH (10:25)
--- NOTE | 2016-03-23 11:36 | PN ---
Progress Note (short form) - Note Progress Note: S: no cp sob palps;had svt overnight with some dizziness o: Vital Signs Period Temp Pulse Resp BP Sys/Chavarria Pulse Ox Last 24 Hr 98.1 F-99.2 F 74-159 18-21 101-149/52-93 100-100 Constitutional: Yes: Well Nourished, No Distress Eyes: No: Sclera Icterus Respiratory: Yes: CTA Bilaterally nl eff. No: Accessory Muscle Use, Rales, Wheezes Gastrointestinal: Yes: Normal Bowel Sounds. No: Distention, Hepatomegaly, Palpable Mass, Tenderness Cardiovascular: Yes: Regular Rate and Rhythm JVD: No Heart Sounds: Yes: S1, S2. No: Gallop Murmur: No: Systolic Murmur, Diastolic Murmur Extremities: No: Cold, Cyanosis Edema: No Integumentary: No: Jaundice diaphoresis Neurological: Yes: Alert, Oriented (x3) Psychiatric: No: Agitated Current Medications Generic Name Dose Route Start Last Admin Trade Name Freq PRN Reason Stop Dose Admin Atorvastatin Calcium 10 mg 03/21/16 22:00 03/22/16 21:42 Lipitor - PO 10 mg HS EMELINA Administration Diltiazem HCl 10 mg 03/22/16 19:09 03/22/16 19:58 Cardizem Injection - IVPUSH 10 mg Q4H PRN Administration TACHYCARDIA Diltiazem HCl 90 mg 03/23/16 06:00 03/23/16 06:39 Cardizem - PO 90 mg TID EMELINA Administration Dipyridamole/Aspirin 1 combo 03/21/16 22:00 03/23/16 10:25 Aggrenox - PO 1 combo BID EMELINA Administration Fentanyl 50 mcg 03/21/16 17:40 Sublimaze Injection - IVPUSH 03/24/16 16:32 [id number] PRN PAIN Ferrous Sulfate 325 mg 03/22/16 08:00 03/23/16 10:25 Feosol - PO 325 mg TIDCM EMELINA Administration Furosemide 80 mg 03/22/16 10:00 03/23/16 10:25 Lasix - PO 80 mg DAILY EMELINA Administration Heparin Sodium (Porcine) 5,000 unit 03/21/16 22:00 03/23/16 10:24 Heparin - SQ 5,000 unit BID EMELINA Administration Methimazole 5 mg 03/22/16 10:00 03/23/16 10:25 Tapazole - PO 5 mg DAILY EMELINA Administration Metoprolol Succinate 100 mg 03/22/16 22:00 03/23/16 10:24 Toprol Xl - PO 100 mg BID EMELINA Administration Metronidazole 500 mg 03/21/16 22:00 03/23/16 06:38 Flagyl - PO 500 mg TID EMELINA Administration CBC, BMP 03/20/16 11:45 03/22/16 11:00 Echo 03/22/16: Mod LV global systolic dysfunction. Nl RV. trace MR. (Per echo report, no significant difference in EF's of all echos) Echo 03/12/16: mild LV dilation. Moderately reduced LV fn. Severe apical wall HK. MIld LAE. Mod-sev MR. Mod TR. RVSP 30-40. Echo 12/2015 report: mild dec lvef, global hk, rv tds, mod-sev mr -images reviewed by prior cardiology consult: MR is moderate Echo 04/2015: nl lv/rv/valves tele: sr, frequent runs svt Assessment/Plan 66-year-old with h/o prior admissions for sob/respiratory failure, hypertension , CVA 2012 on aggrenox, SVT (new dx on prior admission) with associated new cardiomyopathy (tachymyopathy? vs. stress inducedhad subsequent normalization of function), THN, HL, ESRD on HD, chronic pulmonary disease, GERD, diabetes, thyroid abnormality on methimazole, multiple abd surgeries including hysterectomy and appendectomy presenting with abdominal pain fever and found SVT . 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 Febrile illness as possible trigger? - no indication for AC for this rhythm - On 03/22 had episodes of frequent recurrent SVT again. Will uptitrate meds for better control of svt. Dilt increased to 90 tid and toprol increased to 100 bid. Cont to monitor on tele to see if svt is controlled - if has breakthru SVTs, or if EF remains depressed even once SVT is well controlled (i.e. on f/u outpt echo), will need to consider ablation and stop diltiazem Cardiomyopathy - progressive drop in EF over the course of the year. On past admit in december only mildly depressed EF, thought to have contribution from tachymyopathy vs. stress induced, currently moderately reduced with global HK, apex appears worse --> Dr. Hernandez reviewed echo images. EF appears relatively unchanged overall. Ok to further work up as outpatient. (unable to get stress testing here due to inability to get appropriate IV access) - given the hi likelihood that her syst dysfxn is due to tachy, it is reasonable to continue diltiazem for now, as her SVT responds much better to this, until EF can be reassessed in next 2 mo or so - Currently doesn't appear significantly volume overloaded. Con't po lasix and volume management per HD/UF/renal. Mitral regurgitation, resolved. -vol mgmt primarily via HD/UF, per renal -resolved on most recent echo. elevated troponin: -trop here 0.5 x3, not c/w ACS -likely sec to rapid SVT causing mild Type II [place], vs ESRD pt, vs chronic hi filling pressures/chf -nonspecific TWAs on ekg's here also may be sec to recurrent rapid SVT (? [place] this as well [place], causing changes on initial ecg here) -unable to obtain nuclear stress test as above -she is already on fdc ASA (Aggrenox), statin added here, cont bb chronic lung dz, ? ILDz: - resp failure during prior admit with pulm infiltrates of unclear etiology, suspected ILDz of ? etiology, clinically improved with empiric steroids trial, open lung bx deferred (bronch was unrevealing) - 12/[address] dilated IVC but only small effusions, with upper lobe infiltrates more c/w PNA than chf (dr devi review: recurrent consolidation in changing locations/distributions in comparison to prior CT, possibly c/w cryptogenic organizing pneumonia/BOOP). HTN -cont same meds for now, monitor ESRD, on HD: -s/p renal bx last time here c/w DM nephropathy -HD per renal h/o CVA - has been on aggrenox
--- NOTE | 2016-03-23 15:03 | PN ---
Progress Note (short form) - Note Progress Note: Renal follow up for ESRD Pt seen and examined at the bedside yesterdays events noted, SVT on Tele no sob, chest pain had 2 loose stools today good oral intake Vital Signs Temperature 98.4 F 03/23/16 10:00 Pulse Rate 76 03/23/16 10:00 Respiratory Rate 20 03/23/16 10:00 Blood Pressure 114/67 03/23/16 10:00 O2 Sat by Pulse Oximetry (%) 100 03/23/16 10:00 Intake & Output 03/20/16 03/21/16 03/22/16 03/23/16 23:59 23:59 23:59 23:59 Intake Total 1130 450 500 870 Balance 1130 450 500 870 Weight 208 lb 6 oz 201 lb 4 oz 201 lb 2 oz Gen: NAD, awake and alert CVS: RRR, No M/R Lungs: CTA no rales or wheeze. Abd: Obese, mild tenderness Ext: No edema, clubbing or cyanosis CBC, BMP 03/20/16 11:45 03/22/16 11:00 Current Medications Atorvastatin Calcium (Lipitor -) 10 mg PO HS [facility] Last Admin: 03/22/16 21:42 Dose: 10 mg Diltiazem HCl (Cardizem Injection -) 10 mg IVPUSH Q4H PRN PRN Reason: TACHYCARDIA Last Admin: 03/22/16 19:58 Dose: 10 mg Diltiazem HCl (Cardizem -) 90 mg PO TID [facility] Last Admin: 03/23/16 06:39 Dose: 90 mg Dipyridamole/Aspirin (Aggrenox -) 1 combo PO BID [facility] Last Admin: 03/23/16 10:25 Dose: 1 combo Fentanyl (Sublimaze Injection -) 50 mcg IVPUSH [id number] PRN PRN Reason: PAIN Stop: 03/24/16 16:32 Ferrous Sulfate (Feosol -) 325 mg PO TIDCM [facility] Last Admin: 03/23/16 10:25 Dose: 325 mg Furosemide (Lasix -) 80 mg PO DAILY [facility] Last Admin: 03/23/16 10:25 Dose: 80 mg Heparin Sodium (Porcine) (Heparin -) 5,000 unit SQ BID [facility] Last Admin: 03/23/16 10:24 Dose: 5,000 unit Methimazole (Tapazole -) 5 mg PO DAILY [facility] Last Admin: 03/23/16 10:25 Dose: 5 mg Metoprolol Succinate (Toprol Xl -) 100 mg PO BID [facility] Last Admin: 03/23/16 10:24 Dose: 100 mg Metronidazole (Flagyl -) 500 mg PO TID [facility] Last Admin: 03/23/16 06:38 Dose: 500 mg A/P 66 year old woman with PMhx of ESRD on HD (TTS at [facility]) , Hypertension, DM, Hep C who presented with complaints of Abd pain and loose stools and found to have SVT and fever. #ESRD on HD/Hypervolemia no indication for dialysis today FOr next treatment tomorrow dose all meds for intermittent HD #Diarrhea/C-dif on PO flagyl C-Diff antigen positive, Toxin negative #SVT rate control as per cardiology on metoprolol and cardizem montior on Tele with dialysis tomorrow Jon Paz DO
[2016-03-23] MEDS: ATORVASTATIN CA 10 MG TABLET (FP) PO SCH (21:47)
--- NOTE | 2016-03-23 21:56 | PN ---
Progress Note, Physician History of Present Illness: I am aware of yesterday events. No fever, chills, dizziness, palp, CP, SOB, abd pain, V, N. Pt fewer episodes of diarrhea last night. - Current Medication List Current Medications: Active Medications Atorvastatin Calcium (Lipitor -) 10 mg PO HS [facility] Last Admin: 03/23/16 21:47 Dose: 10 mg Diltiazem HCl (Cardizem Injection -) 10 mg IVPUSH Q4H PRN PRN Reason: TACHYCARDIA Last Admin: 03/22/16 19:58 Dose: 10 mg Diltiazem HCl (Cardizem -) 90 mg PO TID [facility] Last Admin: 03/23/16 21:46 Dose: 90 mg Dipyridamole/Aspirin (Aggrenox -) 1 combo PO BID [facility] Last Admin: 03/23/16 21:47 Dose: 1 combo Fentanyl (Sublimaze Injection -) 50 mcg IVPUSH [id number] PRN PRN Reason: PAIN Stop: 03/24/16 16:32 Ferrous Sulfate (Feosol -) 325 mg PO TIDCM [facility] Last Admin: 03/23/16 17:34 Dose: 325 mg Furosemide (Lasix -) 80 mg PO DAILY [facility] Last Admin: 03/23/16 10:25 Dose: 80 mg Heparin Sodium (Porcine) (Heparin -) 5,000 unit SQ BID [facility] Last Admin: 03/23/16 21:45 Dose: 5,000 unit Methimazole (Tapazole -) 5 mg PO DAILY [facility] Last Admin: 03/23/16 10:25 Dose: 5 mg Metoprolol Succinate (Toprol Xl -) 100 mg PO BID [facility] Last Admin: 03/23/16 21:46 Dose: 100 mg Metronidazole (Flagyl -) 500 mg PO TID [facility] Last Admin: 03/23/16 21:45 Dose: 500 mg Paricalcitol (Zemplar -) 2 mcg IVPUSH ONCE ONE Stop: 03/24/16 06:01 - Objective Vital Signs: Vital Signs Temperature 98.6 F 03/23/16 16:20 Pulse Rate 78 03/23/16 16:20 Respiratory Rate 20 03/23/16 16:20 Blood Pressure 120/68 03/23/16 16:20 O2 Sat by Pulse Oximetry (%) 100 03/23/16 10:00 Constitutional: Yes: No Distress, Calm Cardiovascular: Yes: Regular Rate and Rhythm, S1, S2 Respiratory: Yes: Regular, CTA Bilaterally. No: Rales Gastrointestinal: Yes: Normal Bowel Sounds, Soft, Abdomen, Obese. No: Tenderness Edema: No Neurological: Yes: Alert, Oriented Labs: CBC, BMP 03/20/16 11:45 03/22/16 11:00 INR, PTT INR 1.12 (0.82-1.09) 03/11/16 15:50 Problem List - Problems (1) SVT (supraventricular tachycardia) Assessment/Plan: Recurrent, now controlled with medication adjustment. Cardio f/u appreciated. To monitor on Telemetry; possible DC tomorow- pending Cardio clearance Code(s): I47.1 - SUPRAVENTRICULAR TACHYCARDIA (2) C. difficile colitis Assessment/Plan: On PO Flagyl ID and GI f/u appreciated. Code(s): A04.7 - ENTEROCOLITIS DUE TO CLOSTRIDIUM DIFFICILE (3) End stage renal disease on dialysis Assessment/Plan: On HD- needs HD access revision; for OR today pending Cardio clearance Renal f/u appreciated. Vasc Sx f/u appreciated Code(s): N18.6 - END STAGE RENAL DISEASE Z99.2 - DEPENDENCE ON RENAL DIALYSIS (4) Diabetes Code(s): E11.9 - TYPE 2 DIABETES MELLITUS WITHOUT COMPLICATIONS Qualifiers: Diabetes mellitus type: type 2 Diabetes mellitus complication status: without complication (5) Hypertension Assessment/Plan: cont. meds Code(s): I10 - ESSENTIAL (PRIMARY) HYPERTENSION (6) Hepatitis C Code(s): B19.20 - UNSPECIFIED VIRAL HEPATITIS C WITHOUT HEPATIC COMA (7) Anemia Assessment/Plan: Pt with CRF, on HD and anemia Code(s): D64.9 - ANEMIA, UNSPECIFIED Qualifiers: Other causes of anemia: chronic disease, kidney
[2016-03-24] MEDS ORDERED: PARICALCITOL 5 MCG/ML VIAL IVPUSH ONE (06:00)
[2016-03-24] MEDS: dilTIAZem HCL 30 MG TABLET (FP) PO SCH ×3 (06:19→21:41)
[2016-03-24] MEDS: metroNIDAZOLE 250 MG TABLET PO SCH ×3 (06:19→21:42)
--- NOTE | 2016-03-24 08:39 | PN ---
Progress Note, Physician Chief Complaint: chf, svt History of Present Illness: no sob, orthopnea, palpit, cp no cigs - Current Medication List Current Medications: Active Medications Atorvastatin Calcium (Lipitor -) 10 mg PO HS [facility] Last Admin: 03/23/16 21:47 Dose: 10 mg Diltiazem HCl (Cardizem Injection -) 10 mg IVPUSH Q4H PRN PRN Reason: TACHYCARDIA Last Admin: 03/22/16 19:58 Dose: 10 mg Diltiazem HCl (Cardizem -) 90 mg PO TID [facility] Last Admin: 03/24/16 06:19 Dose: 90 mg Dipyridamole/Aspirin (Aggrenox -) 1 combo PO BID [facility] Last Admin: 03/23/16 21:47 Dose: 1 combo Fentanyl (Sublimaze Injection -) 50 mcg IVPUSH [id number] PRN PRN Reason: PAIN Stop: 03/24/16 16:32 Ferrous Sulfate (Feosol -) 325 mg PO TIDCM [facility] Last Admin: 03/23/16 17:34 Dose: 325 mg Furosemide (Lasix -) 80 mg PO DAILY [facility] Last Admin: 03/23/16 10:25 Dose: 80 mg Heparin Sodium (Porcine) (Heparin -) 5,000 unit SQ BID [facility] Last Admin: 03/23/16 21:45 Dose: 5,000 unit Methimazole (Tapazole -) 5 mg PO DAILY [facility] Last Admin: 03/23/16 10:25 Dose: 5 mg Metoprolol Succinate (Toprol Xl -) 100 mg PO BID [facility] Last Admin: 03/23/16 21:46 Dose: 100 mg Metronidazole (Flagyl -) 500 mg PO TID [facility] Last Admin: 03/24/16 06:19 Dose: 500 mg - Objective Vital Signs: Vital Signs Temperature 98.1 F 03/24/16 06:00 Pulse Rate 76 03/24/16 06:00 Respiratory Rate 20 03/24/16 06:00 Blood Pressure 127/70 03/24/16 06:00 O2 Sat by Pulse Oximetry (%) 99 03/23/16 21:00 Constitutional: Yes: No Distress, Calm Eyes: No: Sclera Icterus HENT: No: Nasal Congestion Cardiovascular: Yes: Regular Rate and Rhythm, S1, S2, Other (PMI non diplaced). No: Gallop, Murmur Respiratory: Yes: CTA Bilaterally. No: Accessory Muscle Use, Rales, Wheezes Gastrointestinal: Yes: Normal Bowel Sounds, Soft. No: Tenderness Musculoskeletal: Yes: Other (No kyphosis) Extremities: No: Cold Edema: No Integumentary: No: Jaundice Neurological: Yes: Alert, Oriented (x3) Psychiatric: No: Agitated Labs: CBC, BMP 03/20/16 11:45 03/22/16 11:00 INR, PTT INR 1.12 (0.82-1.09) 03/11/16 15:50 - ....Imaging EKG: Other (tele: NSR; no PSVT) Assessment/Plan Echo 03/22/16: Mod LV global systolic dysfunction. Nl RV. trace MR. (Per echo report, no significant difference in EF's of all echos) Echo 03/12/16: mild LV dilation. Moderately reduced LV fn. Severe apical wall HK. MIld LAE. Mod-sev MR. Mod TR. RVSP 30-40. Echo 12/2015 report: mild dec lvef, global hk, rv tds, mod-sev mr -images reviewed by prior cardiology consult: MR is moderate Echo 04/2015: nl lv/rv/valves tele: sr, frequent runs svt Assessment/Plan 66-year-old with h/o prior admissions for sob/respiratory failure, hypertension , CVA 2012 on aggrenox, SVT (new dx on prior admission) with associated new cardiomyopathy (tachymyopathy? vs. stress inducedhad subsequent normalization of function), THN, HL, ESRD on HD, chronic pulmonary disease, GERD, diabetes, thyroid abnormality on methimazole, multiple abd surgeries including hysterectomy and appendectomy presenting with abdominal pain fever and found SVT . 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 Febrile illness as possible trigger? - no indication for AC for this rhythm - On 03/22 had episodes of frequent recurrent SVT again IN SETTING OF BB AND DILTIAZEM BEING HELD FOR STRESS TEST - Dilt increased to 90 tid and toprol increased to 100 bid--no current SVTs on tele - if has breakthru SVTs, or if EF remains depressed even once SVT is well controlled (i.e. on f/u outpt echo), will need to consider ablation and stop diltiazem -advised her to call me if any palpitations at home Cardiomyopathy - progressive drop in EF over the course of the year. On past admit in december only mildly depressed EF, thought to have contribution from tachymyopathy vs. stress induced, currently moderately reduced with global HK, apex appears worse --> Dr. Hernandez reviewed echo images. EF appears relatively unchanged overall. - SVTs well controlled here for 2 wks, EF not improved--reimage with echo in 4- 6 wks in office - unable to complete stress test due to lack of IV access - pt declines cardiac cath as inpatient, might consider as outpt but desperately wants to go home, and prolonged hosp stay at this point, with risk of hosp-acquired infection - given those risks, and lack of any angina during many long hosp stays here, agree with d/c and outpt f/u (she verbalizes understanding of importance to f/u with me) - will try to arrange pharm stress test as outpt, vs wait and monitor for angina sx's and defer ischemia eval if EF normalizes on rpt echo - given the hi likelihood that her syst dysfxn is due to tachy, it is reasonable to continue diltiazem for now, as her SVT responds much better to this, until EF can be reassessed in next 2 mo or so (remains without signs of chf) - Con't po lasix and volume management per HD/UF/renal. Mitral regurgitation, resolved. -vol mgmt primarily via HD/UF, per renal -resolved on most recent echo. elevated troponin: -trop here 0.5 x3, not c/w ACS -likely sec to rapid SVT causing mild Type II [place], vs ESRD pt, vs chronic hi filling pressures/chf -nonspecific TWAs on ekg's here also may be sec to recurrent rapid SVT (? had this as well in [place], causing changes on initial ecg here) -unable to obtain nuclear stress test as above -she is already on intermediate ASA (Aggrenox), statin added here, cont bb chronic lung dz, ? ILDz: - resp failure during prior admit with pulm infiltrates of unclear etiology, suspected ILDz of ? etiology, clinically improved with empiric steroids trial, open lung bx deferred (bronch was unrevealing) - 12/[address] dilated IVC but only small effusions, with upper lobe infiltrates more c/w PNA than chf (dr devi review: recurrent consolidation in changing locations/distributions in comparison to prior CT, possibly c/w cryptogenic organizing pneumonia/BOOP). HTN -cont same meds for now, monitor ESRD, on HD: -s/p renal bx last time here c/w DM nephropathy -HD per renal h/o CVA - has been on aggrenox OK FOR D/C FROM CV P.O.V.
--- NOTE | 2016-03-24 09:21 | PN ---
Progress Note (short form) - Note Progress Note: Renal follow up for ESRD Pt seen and examined during dialysis BP 105/60, permacath with good function Goal UF 1.5L Pt without complaints has diarrhea x 1 last night Vital Signs Temperature 97.6 F 03/24/16 08:25 Pulse Rate 65 03/24/16 09:00 Respiratory Rate 18 03/24/16 09:00 Blood Pressure 105/60 03/24/16 09:00 O2 Sat by Pulse Oximetry (%) 99 03/23/16 21:00 Intake & Output 03/21/16 03/22/16 03/23/16 03/24/16 23:59 23:59 23:59 23:59 Intake Total 450 500 870 400 Balance 450 500 870 400 Weight 201 lb 4 oz 201 lb 2 oz Gen: NAD, awake and alert CVS: RRR, No M/R Lungs: CTA no rales or wheeze. Abd: Obese, mild tenderness Ext: No edema, clubbing or cyanosis CBC, BMP 03/20/16 11:45 03/22/16 11:00 Current Medications Atorvastatin Calcium (Lipitor -) 10 mg PO HS [facility] Last Admin: 03/23/16 21:47 Dose: 10 mg Diltiazem HCl (Cardizem Injection -) 10 mg IVPUSH Q4H PRN PRN Reason: TACHYCARDIA Last Admin: 03/22/16 19:58 Dose: 10 mg Diltiazem HCl (Cardizem -) 90 mg PO TID [facility] Last Admin: 03/24/16 06:19 Dose: 90 mg Dipyridamole/Aspirin (Aggrenox -) 1 combo PO BID [facility] Last Admin: 03/23/16 21:47 Dose: 1 combo Fentanyl (Sublimaze Injection -) 50 mcg IVPUSH [id number] PRN PRN Reason: PAIN Stop: 03/24/16 16:32 Ferrous Sulfate (Feosol -) 325 mg PO TIDCM [facility]PL[facility] Last Admin: 03/23/16 17:34 Dose: 325 mg Furosemide (Lasix -) 80 mg PO DAILY [facility] Last Admin: 03/23/16 10:25 Dose: 80 mg Heparin Sodium (Porcine) (Heparin -) 5,000 unit SQ BID [facility] Last Admin: 03/23/16 21:45 Dose: 5,000 unit Methimazole (Tapazole -) 5 mg PO DAILY [facility] Last Admin: 03/23/16 10:25 Dose: 5 mg Metoprolol Succinate (Toprol Xl -) 100 mg PO BID [facility] Last Admin: 03/23/16 21:46 Dose: 100 mg Metronidazole (Flagyl -) 500 mg PO TID [facility] Last Admin: 03/24/16 06:19 Dose: 500 mg A/P 66 year old woman with PMhx of ESRD on HD (TTS at [facility]) , Hypertension, DM, Hep C who presented with complaints of Abd pain and loose stools and found to have SVT and fever. #ESRD on HD/Hypervolemia stable dialysis today UF is 1.5L monitor HR during and after dialysis AVF maturing in left ARM #Diarrhea/C-dif on PO flagyl C-Diff antigen positive, Toxin negative #SVT rate control as per cardiology on metoprolol and cardizem monitor on Tele Jon Paz DO
[2016-03-24 10:48] LABS: MCH 26.4 pg (25.7-33.7); MCHC 31.6 g/dl (32.0-36.0); MEAN CELL VOLUME 83.7 fl (80-96); MEAN PLT VOLUME 9.7 fl (7.5-11.1); PLATELET COUNT 163 K/MM3 (134-434); RDW 15.2 % (11.6-15.6); WHITE BLOOD COUNT 11.6 K/mm3 (4.0-10.0)
--- NOTE | 2016-03-24 11:05 | PN ---
Progress Note, Physician Chief Complaint: in bed feels anxious, would like to go home tomorrow (if cleared by cardiology) said she was told to see a psychiatrist for anxiety and agrees to call him while she is in H - Current Medication List Current Medications: Active Medications Atorvastatin Calcium (Lipitor -) 10 mg PO HS [facility] Last Admin: 03/23/16 21:47 Dose: 10 mg Diltiazem HCl (Cardizem Injection -) 10 mg IVPUSH Q4H PRN PRN Reason: TACHYCARDIA Last Admin: 03/22/16 19:58 Dose: 10 mg Diltiazem HCl (Cardizem -) 90 mg PO TID [facility] Last Admin: 03/24/16 06:19 Dose: 90 mg Dipyridamole/Aspirin (Aggrenox -) 1 combo PO BID [facility] Last Admin: 03/23/16 21:47 Dose: 1 combo Fentanyl (Sublimaze Injection -) 50 mcg IVPUSH [id number] PRN PRN Reason: PAIN Stop: 03/24/16 16:32 Ferrous Sulfate (Feosol -) 325 mg PO TIDCM [facility] Last Admin: 03/23/16 17:34 Dose: 325 mg Furosemide (Lasix -) 80 mg PO DAILY [facility] Last Admin: 03/23/16 10:25 Dose: 80 mg Heparin Sodium (Porcine) (Heparin -) 5,000 unit SQ BID [facility] Last Admin: 03/23/16 21:45 Dose: 5,000 unit Methimazole (Tapazole -) 5 mg PO DAILY [facility] Last Admin: 03/23/16 10:25 Dose: 5 mg Metoprolol Succinate (Toprol Xl -) 100 mg PO BID [facility] Last Admin: 03/23/16 21:46 Dose: 100 mg Metronidazole (Flagyl -) 500 mg PO TID [facility] Last Admin: 03/24/16 06:19 Dose: 500 mg - Objective Vital Signs: Vital Signs Temperature 97.6 F 03/24/16 08:25 Pulse Rate 73 03/24/16 11:00 Respiratory Rate 18 03/24/16 11:00 Blood Pressure 123/71 03/24/16 11:00 O2 Sat by Pulse Oximetry (%) 99 03/23/16 21:00 Constitutional: Yes: No Distress, Calm Eyes: Yes: Conjunctiva Clear HENT: Yes: Atraumatic Neck: Yes: Supple Cardiovascular: Yes: Regular Rate and Rhythm Respiratory: Yes: CTA Bilaterally Gastrointestinal: Yes: Soft. No: Distention, Tenderness Genitourinary: No: CVA Tenderness - Left, CVA Tenderness - Right Musculoskeletal: No: Joint Stiffness, Joint Swelling Extremities: No: Cold, Cool Edema: No Peripheral Pulses WNL: Yes Integumentary: No: Rash, Venous Stasis Changes Neurological: Yes: WNL, Alert, Oriented ...Motor Strength: WNL Psychiatric: Yes: WNL, Alert, Oriented. No: Agitated Labs: CBC, BMP 03/24/16 08:30 INR, PTT INR 1.12 (0.82-1.09) 03/11/16 15:50 - ....Imaging Other: Report Reviewed Assessment/Plan The patient is a 66-year-old woman, accompanied by family, with a significant past medical history of anemia, hypertension, CVA, end-stage renal disease (on hemo-dialysis;TRS), insulin-dependent diabetes mellitus SVT CRF/HD, anxiety cardiology f/u psychiatry eval HD per renal PT rehab continue all meds falls pfx decubs pfx prognosis guarded d/w pt and staff pt agreed with plan PT rehab eval
[2016-03-24 12:00] LABS: CALCIUM 8.9 mg/dL (8.5-10.1); CREATININE 3.9 mg/dL (0.55-1.02); PHOSPHOROUS 2.6 mg/dL (2.5-4.9)
[2016-03-24] MEDS: FUROSEMIDE 40 MG TABLET (FP) PO SCH (12:03)
[2016-03-24] MEDS: FERROUS SO4 325 MG TABLET (FP) PO SCH ×3 (12:03→17:23)
[2016-03-24] MEDS: ASPIRIN/DIPYRIDAMOLE 25 MG/200 MG CAPSULE (FP) PO SCH ×2 (12:04→21:42)
[2016-03-24] MEDS: HEPARIN NA (PORCINE) 5,000 UNITS/ML 1ML VIAL SQ SCH ×2 (12:04→21:41)
[2016-03-24] MEDS: METOPROLOL SUCCINATE 100 MG TAB.SR.24H (FP) PO SCH ×2 (12:04→21:41)
[2016-03-24] MEDS ORDERED: PT OWN MED DRAWER 7, Y5N ONE ×2 (12:06→18:55)
[2016-03-24] MEDS: METHIMAZOLE 5 MG TABLET (FP) PO SCH (12:07)
--- NOTE | 2016-03-24 16:37 | CONSULT ---
Consult - text type - Consultation Consultation Note: 66 yr opld female with m,any chronic medical conditions. Patient seemn for anxiety and head aches. No history of Psych Illness or previous tratments. She lives with her daughtewr. MS: alert, oriented, good eye contact, denies any suicidal thoughts or plans. No evidence of any psychoasdis. cognition intact. Plan: Start Lexapro 5mg po od.
[2016-03-24] MEDS: ATORVASTATIN CA 10 MG TABLET (FP) PO SCH (21:41)
[2016-03-25] MEDS: dilTIAZem HCL 30 MG TABLET (FP) PO SCH ×2 (05:42→13:02)
[2016-03-25] MEDS: metroNIDAZOLE 250 MG TABLET PO SCH ×2 (05:42→13:02)
[2016-03-25] MEDS ORDERED: PT OWN MED DRAWER 7, Y5N ONE (09:46)
[2016-03-25] MEDS: FUROSEMIDE 40 MG TABLET (FP) PO SCH (09:52)
[2016-03-25] MEDS: METHIMAZOLE 5 MG TABLET (FP) PO SCH (09:53)
[2016-03-25] MEDS: HEPARIN NA (PORCINE) 5,000 UNITS/ML 1ML VIAL SQ SCH (09:53)
[2016-03-25] MEDS: METOPROLOL SUCCINATE 100 MG TAB.SR.24H (FP) PO SCH (09:53)
[2016-03-25] MEDS: FERROUS SO4 325 MG TABLET (FP) PO SCH ×2 (09:53→12:58)
[2016-03-25] MEDS: ASPIRIN/DIPYRIDAMOLE 25 MG/200 MG CAPSULE (FP) PO SCH (09:53)
[2016-03-25] MEDS ORDERED: ESCITALOPRAM OXALATE 10 MG TABLET (FP) PO SCH (10:00)
--- NOTE | 2016-03-25 11:07 | PN ---
Progress Note, Physician Chief Complaint: chf, SVT History of Present Illness: no palpitation, cp, sob, orthopnea - Current Medication List Current Medications: Active Medications Atorvastatin Calcium (Lipitor -) 10 mg PO HS [facility] Last Admin: 03/24/16 21:41 Dose: 10 mg Diltiazem HCl (Cardizem Injection -) 10 mg IVPUSH Q4H PRN PRN Reason: TACHYCARDIA Last Admin: 03/22/16 19:58 Dose: 10 mg Diltiazem HCl (Cardizem -) 90 mg PO TID [facility] Last Admin: 03/25/16 05:42 Dose: 90 mg Dipyridamole/Aspirin (Aggrenox -) 1 combo PO BID [facility] Last Admin: 03/25/16 09:53 Dose: 1 combo Escitalopram Oxalate (Lexapro -) 5 mg PO DAILY [facility] Last Admin: 03/25/16 09:52 Dose: 5 mg Ferrous Sulfate (Feosol -) 325 mg PO TIDCM [facility] Last Admin: 03/25/16 09:53 Dose: 325 mg Furosemide (Lasix -) 80 mg PO DAILY [facility] Last Admin: 03/25/16 09:52 Dose: 80 mg Heparin Sodium (Porcine) (Heparin -) 5,000 unit SQ BID [facility] Last Admin: 03/25/16 09:53 Dose: 5,000 unit Methimazole (Tapazole -) 5 mg PO DAILY [facility] Last Admin: 03/25/16 09:53 Dose: 5 mg Metoprolol Succinate (Toprol Xl -) 100 mg PO BID [facility] Last Admin: 03/25/16 09:53 Dose: 100 mg Metronidazole (Flagyl -) 500 mg PO TID [facility] Last Admin: 03/25/16 05:42 Dose: 500 mg - Objective Vital Signs: Vital Signs Temperature 98.2 F 03/25/16 06:08 Pulse Rate 64 03/25/16 06:08 Respiratory Rate 20 03/25/16 06:08 Blood Pressure 137/59 03/25/16 06:08 O2 Sat by Pulse Oximetry (%) 98 03/24/16 21:00 Constitutional: Yes: No Distress, Calm Eyes: No: Sclera Icterus HENT: No: Nasal Congestion Cardiovascular: Yes: Regular Rate and Rhythm, S1, S2, Other (PMI non diplaced). No: JVD, Gallop, Murmur Respiratory: Yes: CTA Bilaterally. No: Accessory Muscle Use, Rales, Wheezes Gastrointestinal: Yes: Normal Bowel Sounds, Soft. No: Tenderness Musculoskeletal: Yes: Other (No kyphosis) Extremities: No: Cold Edema: No Integumentary: No: Jaundice Neurological: Yes: Alert, Oriented (x3) Psychiatric: No: Agitated Labs: CBC, BMP 03/24/16 08:30 03/24/16 08:30 INR, PTT INR 1.12 (0.82-1.09) 03/11/16 15:50 - ....Imaging EKG: Other (telem: NSR, no SVT) Assessment/Plan Echo 03/22/16: Mod LV global systolic dysfunction. Nl RV. trace MR. (Per echo report, no significant difference in EF's of all echos) Echo 03/12/16: mild LV dilation. Moderately reduced LV fn. Severe apical wall HK. MIld LAE. Mod-sev MR. Mod TR. RVSP 30-40. Echo 12/2015 report: mild dec lvef, global hk, rv tds, mod-sev mr -images reviewed by prior cardiology consult: MR is moderate Echo 04/2015: nl lv/rv/valves tele: sr, frequent runs svt Assessment/Plan 66-year-old with h/o prior admissions for sob/respiratory failure, hypertension , CVA 2012 on aggrenox, SVT (new dx on prior admission) with associated new cardiomyopathy (tachymyopathy? vs. stress inducedhad subsequent normalization of function), THN, HL, ESRD on HD, chronic pulmonary disease, GERD, diabetes, thyroid abnormality on methimazole, multiple abd surgeries including hysterectomy and appendectomy presenting with abdominal pain fever and found SVT . 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 Febrile illness as possible trigger? - no indication for AC for this rhythm - On 03/22 had episodes of frequent recurrent SVT again IN SETTING OF BB AND DILTIAZEM BEING HELD FOR STRESS TEST - Dilt increased to 90 tid and toprol increased to 100 bid--no current SVTs on tele - if has breakthru SVTs, or if EF remains depressed even once SVT is well controlled (i.e. on f/u outpt echo), will need to consider ablation and stop diltiazem -advised her to call me if any palpitations at home Cardiomyopathy - progressive drop in EF over the course of the year. On past admit in december only mildly depressed EF, thought to have contribution from tachymyopathy vs. stress induced, currently moderately reduced with global HK, apex appears worse --> Dr. Hernandez reviewed echo images. EF appears relatively unchanged overall. - SVTs well controlled here for 2 wks, EF not improved--reimage with echo in 4- 6 wks in office - unable to complete stress test due to lack of IV access - pt declines cardiac cath as inpatient, might consider as outpt but desperately wants to go home, and prolonged hosp stay at this point, with risk of hosp-acquired infection - given those risks, and lack of any angina during many long hosp stays here, agree with d/c and outpt f/u (she verbalizes understanding of importance to f/u with me) - will try to arrange pharm stress test as outpt, vs wait and monitor for angina sx's and defer ischemia eval if EF normalizes on rpt echo - given the hi likelihood that her syst dysfxn is due to tachy, it is reasonable to continue diltiazem for now, as her SVT responds much better to this, until EF can be reassessed in next 2 mo or so (remains without signs of chf) - Con't po lasix and volume management per HD/UF/renal. Mitral regurgitation, resolved. -vol mgmt primarily via HD/UF, per renal -resolved on most recent echo. elevated troponin: -trop here 0.5 x3, not c/w ACS -likely sec to rapid SVT causing mild Type II [place], vs ESRD pt, vs chronic hi filling pressures/chf -nonspecific TWAs on ekg's here also may be sec to recurrent rapid SVT (? had this as well [place], causing changes on initial ecg here) -unable to obtain nuclear stress test as above -she is already on skilled nursing ASA (Aggrenox), statin added here, cont bb chronic lung dz, ? ILDz: - resp failure during prior admit with pulm infiltrates of unclear etiology, suspected ILDz of ? etiology, clinically improved with empiric steroids trial, open lung bx deferred (bronch was unrevealing) - 12/[address] dilated IVC but only small effusions, with upper lobe infiltrates more c/w PNA than chf (dr devi review: recurrent consolidation in changing locations/distributions in comparison to prior CT, possibly c/w cryptogenic organizing pneumonia/BOOP). HTN -cont same meds for now, monitor ESRD, on HD: -s/p renal bx last time here c/w DM nephropathy -HD per renal h/o CVA - has been on aggrenox OK FOR D/C FROM CV P.O.V.
[2016-03-25 11:23] VITALS: TEMP 97.8
--- NOTE | 2016-03-25 12:36 | DS ---
Physical Examination Vital Signs: Vital Signs Temperature 97.8 F 03/25/16 10:00 Pulse Rate 63 03/25/16 10:00 Respiratory Rate 20 03/25/16 10:00 Blood Pressure 120/56 03/25/16 10:00 O2 Sat by Pulse Oximetry (%) 100 03/25/16 10:00 Findings/Remarks: No SOC, CP, DIzziness, LOC. No abd pain, N, V; still with lose stool- improved. Constitutional: Yes: No Distress, Calm Cardiovascular: Yes: Regular Rate and Rhythm, S1, S2 Respiratory: Yes: Regular, CTA Bilaterally. No: Rales Gastrointestinal: Yes: Normal Bowel Sounds, Soft, Abdomen, Obese. No: Palpable Mass, Tenderness Edema: No Neurological: Yes: Alert, Oriented Labs: CBC, BMP 03/24/16 08:30 03/24/16 08:30 Discharge Summary Reason For Visit: ESRD ELEVATED TROPONIN SVT Current Active Problems ACS (acute coronary syndrome) (Acute) Abdominal pain (Acute) Acute diarrhea (Acute) C. difficile colitis (Acute) Elevated troponin (Acute) End stage renal disease on dialysis (Acute) Gastroenteritis (Acute) Hepatitis C (Acute) History of hepatitis C (Acute) Muscle contusion (Acute) SVT (supraventricular tachycardia) (Acute) Procedures: Principal: ECHO ( X2), Venogram Other Procedures: CXR Hospital Course: Pt. came to ER c/o N, V, diarrhea. In ER she was noticed to have SVT received IV cardizem, admitted to telemetry; HR was controlled with BB and Ca Vivi; pt was startedon Abtx for C. Diff colitis. Pt with left AVF, needed revision by Vas Sx- to use AVF next week if OK with Dr. Homer Nick. Pt was seen in consult by Cardio ( Dr. Hernandez/ [place]), ID ( Dr. Caldwell / Dio), Renal ( Dr. Paz) , Vasx Sx ( Dr. Nick). Pt. improved. Stress test was attempted but not perform secondary to poor IV access. Pt. developed a new episode of SVT, presyncope; pt. 's medication was adjusted, was transferred back to Telemetry for monitoring. Pt. was seen by psychiatry for anxiety ( Dr. Hernandez), started on Lexapro). Pt. w/o new SVT episode, cleared by cardio for DC home today ( case was reviewed with Dr. Arriaza). Condition: Improved - Instructions Diet, Activity, Other Instructions: Renal Diet. To f/u with Dr. Villarreal within a week. To f/u with Dr. Johnsno/ David in 1 to 2 weeks or as scheduled. Referrals: Rebecca Villarreal [Primary Care Provider] - (in 1 week. Call for appointment.) Garfield Arriaza MD [Staff Physician] - (in 1 - 2 weeks.) Disposition: HOME - Home Medications Comprehensive Discharge Medication List: Ambulatory Orders RX: Aspirin/Dipyridamole [Aggrenox -] 1 combo PO BID 12/23/15 RX: Methimazole 5 mg PO DAILY 12/23/15 RX: Ferrous Sulfate [Feosol] 325 mg PO TIDCM ud 01/12/16 RX: Furosemide [Lasix -] 80 mg PO DAILY tablet 01/12/16 RX: Atorvastatin Ca [Lipitor] 10 mg PO HS #90 tablet 03/22/16 RX: Diltiazem [Cardizem -] 90 mg PO TID #90 tablet 03/22/16 RX: Metoprolol Succinate [Toprol XL -] 100 mg PO BID #90 tab.sr.24h 03/22/16 RX: Metronidazole [Flagyl -] 500 mg PO TID #23 tablet 03/22/16 Lexapro 5 mg PO Daily
[2016-03-25 14:15] VITALS: BP 134/75; PULSE 68
--- NOTE | 2016-03-26 14:25 | PN ---
Progress Note (short form) - Note Progress Note: Pt called today our office c/o weakness, lightheadedness, not able to walk; No CP, SOB, palpitations. I adviced pt. to call [phone] ( [facility]) to be taken to ER for further evaluation- pt. agrees. Problem List - Problems (1) SVT (supraventricular tachycardia) Code(s): I47.1 - SUPRAVENTRICULAR TACHYCARDIA (2) C. difficile colitis Code(s): A04.7 - ENTEROCOLITIS DUE TO CLOSTRIDIUM DIFFICILE (3) End stage renal disease on dialysis Code(s): N18.6 - END STAGE RENAL DISEASE Z99.2 - DEPENDENCE ON RENAL DIALYSIS (4) Diabetes Code(s): E11.9 - TYPE 2 DIABETES MELLITUS WITHOUT COMPLICATIONS Qualifiers: Diabetes mellitus type: type 2 Diabetes mellitus complication status: without complication (5) Hypertension Code(s): I10 - ESSENTIAL (PRIMARY) HYPERTENSION (6) Hepatitis C Code(s): B19.20 - UNSPECIFIED VIRAL HEPATITIS C WITHOUT HEPATIC COMA (7) Anemia Code(s): D64.9 - ANEMIA, UNSPECIFIED Qualifiers: Other causes of anemia: chronic disease, kidney
--- NOTE | 2016-04-12 11:05 | OP ---
DATE OF OPERATION: 03/21/2016 PREOPERATIVE DIAGNOSIS: Immature left arteriovenous fistula. POSTOPERATIVE DIAGNOSIS: Immature left arteriovenous fistula. PROCEDURE: Venogram, balloon maturation of left arteriovenous fistula. FINDINGS: Vein 5 mm, balloon maturation performed to 8 mm. SURGEON: Chris Márquez MD ANESTHESIA: Fractional. BLOOD LOSS: 5 mL. INDICATIONS: This is a patient who has an immature left AV fistula. Preoperative ultrasound was performed, and the vein was found to be 5 mm. I cannot be cannulated for dialysis access. It was felt that she would need venoplasty. Patient came into ambulatory surgery. Patient was consented for the procedure understanding all risks, benefits, and alternatives, and then was brought to the operating room. DESCRIPTION OF PROCEDURE: Once in the operating room, she was placed on the operating table in the supine manner. The area of the left arm was prepped and draped in the sterile surgical manner. Under ultrasound guidance, we visualized the proximal left cephalic vein. We then injected 10 mL of 0.5% lidocaine over the vein. We then took our micropuncture needle, punctured the vein using our micropuncture needle under ultrasound guidance. We then placed our micropuncture sheath and then placed a traditional short 6-Israeli sheath. We placed a 0.035 floppy guidewire up into the central veins. We then shot our venogram by hand injection showing that the vein was patent. However, it was only 5 mm. At this point, we used an 8 x 8 balloon and performed a venoplasty of the entire fistula. Prior to performing venoplasty, 3000 units of IV heparin was administered to the patient. Once the venoplasty was performed, we shot a completion venogram showing that the vein was dilated, and there was good flow all the way into the central veins. At this point, we took a 4-0 Biosyn stitch and placed a figure-of-8 stitch around our sheath, and the sheath was pulled. The area was wet and dried, and Dermabond was placed. The patient tolerated the procedure with no complications. Patient has transferred to PACU in stable condition. Total blood loss 5 mL. CRHIS MÁRQUEZ DO [id number]
== END 2016-03-25 14:17 | disposition home or self-care (01) | DRG 871 ==
LOC: JER 15:08 → UNDOADMIN 18:04 → JERBED 18:04 → J4W 03-12 15:23 → J6S 03-19 20:58 → J4S 03-22 18:20
PROVIDERS: ADMIT Internal Medicine; ATTEND Internal Medicine
PROC: B50BYZZ Plain Radiography of Right Lower Extremity Veins using Other Contrast (ICD-10-PCS; principal; 2016-03-21 15:00)
DX: A41.9 Sepsis, unspecified organism (principal); N18.6 End stage renal disease; I47.1 Supraventricular tachycardia; A04.7 Enterocolitis due to Clostridium difficile; I69.354 Hemiplegia and hemiparesis following cerebral infarction affecting left non-dominant side; I42.8 Other cardiomyopathies; J84.9 Interstitial pulmonary disease, unspecified; I13.2 Hypertensive heart and chronic kidney disease with heart failure and with stage 5 chronic kidney disease, or end stage renal disease; I50.32 Chronic diastolic (congestive) heart failure; B19.20 Unspecified viral hepatitis C without hepatic coma; K21.9 Gastro-esophageal reflux disease without esophagitis; R47.89 Other speech disturbances; K59.09 Other constipation; E11.319 Type 2 diabetes mellitus with unspecified diabetic retinopathy without macular edema; E11.40 Type 2 diabetes mellitus with diabetic neuropathy, unspecified; E05.10 Thyrotoxicosis with toxic single thyroid nodule without thyrotoxic crisis or storm; J45.909 Unspecified asthma, uncomplicated; D63.1 Anemia in chronic kidney disease; I34.0 Nonrheumatic mitral (valve) insufficiency; Z79.4 Long term (current) use of insulin
CPT/HCPCS: 36415; 71010-TC; 74176-TC; 76000-TC; 76705; 80048; 80053; 82550; 83880; 84100; 84484; 85025; 85027; 85610; 86704; 86706; 86708; 86803; 87040; 87045; 87046; 87177; 87205; 87207; 87209; 87324; 87328; 87329; 87340; 87449; 87522; 87798; 87804; 93005; 93010; 93306-TC; 93931; 94760; 94761; 97116-GP; 97161-GP; 99285-25; J1644

== ENCOUNTER 2016-05-08 09:24 | Inpatient (IN) | payer OTHER ==
[2016-05-08 09:36] VITALS: BMI 33.2
--- NOTE | 2016-05-08 10:17 | PDOC ---
History of Present Illness - General History Source: Patient Exam Limitations: No Limitations - History of Present Illness Initial Comments: 05/08/16 10:43 The patient is a 66 year old female, with a significant past medical history of anemia, HTN, CVA end-stage renal disease s/p hali loco (on hemodialysis : TRS; as of 01/2016), IDDM, who was BIBA presents to the emergency department with dialysis shunt problem occurring today. Patient reports going to dialysis to where she was unable to receive treatment secondary to shunt problem. She reports her shunt was working fine saturday. She denies recent fevers, chills, headache or dizziness. She denies recent nausea, vomit, diarrhea or constipation. Allergies: NKDA Past surgical history: Appendicectomy. Section x 3. Tubal ligation. Social history: Denies EtOH, tobacco, and recreational drug use. PCP: Dr. Rebecca Villarreal Electrical Maintenance Man: Dr. Garfield Arriaza Hardwood Floor Finisher: Dr. Alessia Keenan <Lucas Carmichael - Last Filed: 05/08/16 11:27> - General History Source: Patient Exam Limitations: No Limitations <Meri Patrick - Last Filed: 05/09/16 19:28> - General Chief Complaint: Dialysis Shunt Problem Stated Complaint: Dialysis Shunt Problem Time Seen by Provider: 05/08/16 10:17 Past History <Lucas Carmichael - Last Filed: 05/08/16 11:27> - Past Medical History Anemia: Yes Asthma: Yes Cancer: No Cardiac Disorders: No CVA: Yes CHF: Yes Diabetes: Yes (NIDDM) Dialysis: Yes () GI Disorders: No Disorders: No HTN: Yes Hypercholesterolemia: No Liver Disease: No Thyroid Disease: Yes - Surgical History Abdominal Surgery: No Appendectomy: Yes Cardiac Surgery: No Cholecystectomy: No Lung Surgery: No Neurologic Surgery: No Orthopedic Surgery: No - Psycho/Social/Smoking Cessation Hx Anxiety: No Suicidal Ideation: No Smoking Status: No Smoking History: Never smoked Have you smoked in the past 12 months: No Number of Cigarettes Smoked Daily: 0 Information on smoking cessation initiated: No Hx Alcohol Use: No Drug/Substance Use Hx: No Substance Use Type: None Hx Substance Use Treatment: No <Meri Patrick - Last Filed: 05/09/16 19:28> - Past Medical History Allergies/Adverse Reactions: Allergies Allergy/AdvReac Type Severity Reaction Status Date / Time nut - unspecified [nut] Allergy Verified 05/08/16 09:37 Home Medications: Ambulatory Orders Aspirin/Dipyridamole [Aggrenox -] 1 combo PO BID 12/23/15 Methimazole 5 mg PO DAILY 12/23/15 Ferrous Sulfate [Feosol] 325 mg PO TIDCM ud 01/12/16 Escitalopram Oxalate [Lexapro -] 5 mg PO DAILY #90 tablet 03/25/16 Metoprolol Succinate [Toprol XL -] 100 mg PO BID #90 tab.sr.24h 03/25/16 Acetaminophen [Tylenol .Regular Strength -] 650 mg PO Q6H PRN #0 tablet Review of Systems - Review of Systems Able to Perform ROS?: Yes Comments:: 05/08/16 10:44 GENERAL/CONSTITUTIONAL: +dialysis shunt problem. No: fever, chills, weakness, loss of appetite. HEAD, EYES, EARS, NOSE AND THROAT: No: change in vision, ear pain, discharge, sore throat, throat swelling. CARDIOVASCULAR: No: chest pain, lightheadedness, palpitations, syncope RESPIRATORY: No: cough, shortness of breath, wheezing, hemoptysis, stridor. GASTROINTESTINAL: No: nausea, vomiting, diarrhea, abdominal cramping, rectal bleeding, constipation. GENITOURINARY: No: dysuria, hematuria, frequency, urgency, flank pain. MUSCULOSKELETAL: No: back pain, neck pain, joint pain, muscle swelling or pain SKIN : No: lesions, pallor, rash or easy bruising. NEUROLOGIC: No: headache, vertigo, paresthesias, weakness ENDOCRINE: No: unexplained weight gain or loss HEMATOLOGIC/LYMPHATIC: No: anemia, easy bleeding, swelling nodes. <Lucas Carmichael - Last Filed: 05/08/16 11:27> *Physical Exam - Vital Signs Last Vital Signs Temp Pulse Resp BP Pulse Ox 97.9 F 70 18 112/59 100 05/08/16 09:33 05/08/16 09:33 05/08/16 09:33 05/08/16 09:33 05/08/16 09:33 - Physical Exam Comments: 05/08/16 10:57 GENERAL: The patient is in no acute distress. HEAD: Normal with no signs of trauma. EYES: PERRLA, EOMI, sclera anicteric, conjunctiva clear. ENT: Ears normal, nares patent, oropharynx clear without exudates. Moist mucous membranes. NECK: Normal range of motion, supple without lymphadenopathy, JVD, or masses. LUNGS: Breath sounds equal, clear to auscultation bilaterally. No wheezes, and no crackles. HEART: Regular rate and rhythm, normal S1 and S2 without murmur, rub or gallop. ABDOMEN: Soft, nontender, normoactive bowel sounds. No guarding, no rebound. No masses palpable. EXTREMITIES: Palpable thrill and bruit if the left upper extremity fistula. Normal range of motion, no edema. No clubbing or cyanosis. No erythema, or tenderness. NEUROLOGICAL: Cranial nerves II through XII grossly intact. Normal speech. No focal neurological deficits. MUSCULOSKELETAL: Back non-tender to palpation, no CVA tenderness. No swelling or tenderness to right sided chest. SKIN: Warm, Dry, normal turgor, no rashes or lesions noted. <Lucas Carmichael - Last Filed: 05/08/16 11:27> - Vital Signs Last Vital Signs Temp Pulse Resp BP Pulse Ox 97.9 F 70 18 112/59 100 05/08/16 09:33 05/08/16 09:33 05/08/16 09:33 05/08/16 09:33 05/08/16 09:33 <Meri Patrick - Last Filed: 05/09/16 19:28> ED Treatment Course - LABORATORY CBC & Chemistry Diagram: 05/08/16 11:49 05/08/16 11:49 <Meri Patrick - Last Filed: 05/09/16 19:28> Medical Decision Making - Medical Decision Making 05/08/16 10:49 Call made to , awaiting call back. 05/08/16 11:27 Call back from Call made to , case discussed. <Lucas Carmichael - Last Filed: 05/08/16 11:27> - Medical Decision Making 05/08/16 10:17 A portion of this note was documented by scribe services under my direction. I have reviewed the details of the note, within reason, and agree with the documentation with the following case summary and management plan written by me. Nursing documentation reviewed and incorporated into medical decision making 05/08/16 11:05 This is a 66 yo F with a history of ESRD on HD T,R,S s/p Righ subclavian permacath and left upper extremity fistula Right permacath no longer working 05/08/16 11:[address] Nick He will bring pt to the OR today Dr Paz will dialyze today This was reviewed with Dr Villarreal She can not do observation Recommended calling hospitalist Call placed to hospitalist Will clear with case management 05/08/16 11:[address] Villarreal Labs were sent (pt is a very difficult blood draw) Clinical impression: non functioning dialysis cathether Laboratory Tests 05/08/16 05/08/16 11:49 11:49 WBC 9.5 Hgb 11.5 Hct 36.1 Plt Count 195 Neutrophils % 66.5 Lymphocytes % 19.6 BUN 25 H D Creatinine 3.2 H <Meri Patrick - Last Filed: 05/09/16 19:28> *DC/Admit/Observation/Transfer - Attestations Scribe Attestion: 05/08/16 10:44 Documentation prepared by Lucas Carmichael, acting as medical tech for Meri Patrick MD. <Lucas Carmichael - Last Filed: 05/08/16 11:27> - Discharge Dispostion Admit: Yes <Meri Patrick - Last Filed: 05/09/16 19:28> Diagnosis at time of Disposition: Dialysis catheter clot or failure - Discharge Dispostion Disposition: VNS/HOME HEALTH CARE Condition at time of disposition: Stable - Referrals
[2016-05-08] MEDS ORDERED: HEPARIN NA (PORCINE) 5,000 UNITS/ML 1ML VIAL IVPUSH ONE (11:16)
[2016-05-08 12:09] LABS: BASOPHIL 0.9 % (0-2.0); EOSINOPHIL 3.6 % (0-4.5); MCH 26.4 pg (25.7-33.7); MCHC 31.8 g/dl (32.0-36.0); MEAN CELL VOLUME 82.8 fl (80-96); NEUTROPHILS 66.5 % (42.8-82.8); PLATELET COUNT 195 K/MM3 (134-434); RDW 15.8 % (11.6-15.6); WHITE BLOOD COUNT 9.5 K/mm3 (4.0-10.0)
[2016-05-08 12:20] LABS: CALCIUM 9.1 mg/dL (8.5-10.1); CREATININE 3.2 mg/dL (0.55-1.02)
[2016-05-08] MEDS ORDERED: LIDOCAINE HCL 1%, 10 MG/ML (20ML VIAL) ONE (14:39)
[2016-05-08] MEDS ORDERED: LIDOCAINE HCL 1%, 10 MG/ML (20ML VIAL) IJ ONE (15:06)
--- NOTE | 2016-05-08 15:07 | OP ---
Operative Note - Note: Operative Date: 05/08/16 Pre-Operative Diagnosis: malfunctioning permacath Operation: permacath exchange Post-Operative Diagnosis: Same as Pre-op Surgeon: Chris Nick Anesthesia: Fractional Estimated Blood Loss (mls): 10 Operative Report Dictated: Yes
--- NOTE | 2016-05-08 15:10 | CONSULT ---
Consult - text type - Consultation Consultation Note: Renal Consult for ESRD on HD This is a 66 year old woman with PMhx of ESRD on HD (TTS at [facility]), Hypertension, DM, Hep C who presented with a nonfunctioning HD catheter. Pt was given cathflo at dialysis unit today but was able to pull blood from the catheter. Pt last had dialysis on Saturday. No sob, chest pain, fever, chills, N/V/D. PMhx: as above Allergies: NKDA Family hx: NC Social hx: No T/A/D ROS: as per HPI, all other pertinent ros negative Home Meds: Home Medications Medication Instructions Recorded Aspirin/Dipyridamole [Aggrenox -] 1 combo PO BID 12/23/15 Methimazole 5 mg PO DAILY 12/23/15 Ferrous Sulfate [Feosol] 325 mg PO TIDCM ud 01/12/16 Escitalopram Oxalate [Lexapro -] 5 mg PO DAILY #90 tablet 03/25/16 Metoprolol Succinate [Toprol XL -] 100 mg PO BID #90 tab.sr.24h 03/25/16 Vital Signs Temperature 97.9 F 05/08/16 09:33 Pulse Rate 70 05/08/16 09:33 Respiratory Rate 18 05/08/16 09:33 Blood Pressure 112/59 05/08/16 09:33 O2 Sat by Pulse Oximetry (%) 100 05/08/16 09:33 Intake & Output 05/05/16 05/06/16 05/07/16 05/08/16 23:59 23:59 23:59 23:59 Intake Total 100 Balance 100 Weight 206 lb Gen: NAD, awake and alert HEENT: NC/AT, MMM, No JVD CVS: RRR, No M/R Lungs: CTA no rales or wheeze. Abd: Obese, mild tenderness Ext: No edema, clubbing or cyanosis : no bladder distension Neuro: AAOx3, no focal defects AccessL: Left IJ permacath. CBC, BMP 05/08/16 11:49 05/08/16 11:49 A/P 66 year old woman with PMhx of ESRD on HD (TTS at [facility]) , Hypertension, DM, Hep C who presented with complaints of Abd pain and loose stools and found to have SVT and fever. #HD catheter dysfunction Pt will need catheter exchange Dr. Nick aware Pt NPO for procedure #ESRD on HD will arrange for HD as inpatient following catheter exchange #CKD related anemia Hgb is at goal no idication for REYNA Jon Paz DO
--- NOTE | 2016-05-08 15:29 | CONSULT ---
Consult - text type - Consultation Consultation Note: Renal Consult for ESRD on HD This is a 66 year old woman with PMhx of ESRD on HD (TTS at [facility]), Hypertension, DM, Hep C who presented with a nonfunctioning HD catheter. Pt was given cathflo at dialysis unit today but was able to pull blood from the catheter. Pt last had dialysis on Saturday. No sob, chest pain, fever, chills, N/V/D. PMhx: as above Allergies: NKDA Family hx: NC Social hx: No T/A/D ROS: as per HPI, all other pertinent ros negative Home Meds: Home Medications Medication Instructions Recorded Aspirin/Dipyridamole [Aggrenox -] 1 combo PO BID 12/23/15 Methimazole 5 mg PO DAILY 12/23/15 Ferrous Sulfate [Feosol] 325 mg PO TIDCM ud 01/12/16 Escitalopram Oxalate [Lexapro -] 5 mg PO DAILY #90 tablet 03/25/16 Metoprolol Succinate [Toprol XL -] 100 mg PO BID #90 tab.sr.24h 03/25/16 Vital Signs Temperature 97.9 F 05/08/16 09:33 Pulse Rate 70 05/08/16 09:33 Respiratory Rate 18 05/08/16 09:33 Blood Pressure 112/59 05/08/16 09:33 O2 Sat by Pulse Oximetry (%) 100 05/08/16 09:33 Intake & Output 05/05/16 05/06/16 05/07/16 05/08/16 23:59 23:59 23:59 23:59 Intake Total 100 Balance 100 Weight 206 lb Gen: NAD, awake and alert HEENT: NC/AT, MMM, No JVD CVS: RRR, No M/R Lungs: CTA no rales or wheeze. Abd: Obese, mild tenderness Ext: No edema, clubbing or cyanosis : no bladder distension Neuro: AAOx3, no focal defects AccessL: Left IJ permacath. CBC, BMP 05/08/16 11:49 05/08/16 11:49 A/P 66 year old woman with PMhx of ESRD on HD (TTS at [facility]) , Hypertension, DM, Hep C who presented with a nonfunctioning HD catheter. #HD catheter dysfunction Pt will need catheter exchange Dr. Nick aware Pt NPO for procedure #ESRD on HD will arrange for HD as inpatient following catheter exchange #CKD related anemia Hgb is at goal no idication for REYNA Jon Paz DO
--- NOTE | 2016-05-08 17:47 | HP ---
Admitting History and Physical - Primary Care Physician PCP: Rebecca Villarreal S - Admission Chief Complaint: HD access not working History of Present Illness: The patient is a 66 year old female, with a significant past medical history of anemia, HTN, CVA end-stage renal disease on hemodialysis, IDDM, who was BIBA presents to the emergency department with dialysis shunt problem occurring today. Patient reports going to dialysis today where she was unable to receive treatment secondary to shunt problem. She reports her shunt was working fine saturday. She denies recent fevers, chills, headache or dizziness. She denies recent nausea, vomit, diarrhea or constipation. History Source: Patient Limitations to Obtaining History: No Limitations - Past Medical History RN LIAISON: Yes: CVA (transient speech loss and left hemiparesis in 2012) Cardiovascular: Yes: CHF (end diastolic), HTN, Hyperlipdemia Pulmonary: Yes: Asthma, Pneumonia, Other (ILD) Gastrointestinal: Yes: Constipation, GERD Hepatobiliary: Yes: Hepatitis C Renal/: Yes: Renal Inusuff, Renal Inusuff ...: No Heme/Onc: Yes: Anemia Musculoskeletal: Yes: Osteoarthritis Endocrine: Yes: Diabetes Mellitus (diabetic retinopathy ( treated ) and neuropathy), Hyperthyroidism (Graves Disease with thyroid nodule), Other ( THYROID DISEASE) - Past Surgical History Past Surgical History: Yes: Appendectomy, Colonoscopy, (C section x 4) , Hysterectomy - Smoking History Smoking history: Never smoked Have you smoked in the past 12 months: No Aproximately how many cigarettes per day: 0 - Alcohol/Substance Use Hx Alcohol Use: No History of Substance Use: reports: None - Social History Usual Living Arrangement: Yes: With Child ADL: Independent History of Recent Travel: No Home Medications - Allergies Allergies/Adverse Reactions: Allergies Allergy/AdvReac Type Severity Reaction Status Date / Time nut - unspecified [nut] Allergy Verified 05/08/16 09:37 - Home Medications Home Medications: Ambulatory Orders Aspirin/Dipyridamole [Aggrenox -] 1 combo PO BID 12/23/15 Methimazole 5 mg PO DAILY 12/23/15 Ferrous Sulfate [Feosol] 325 mg PO TIDCM ud 01/12/16 Escitalopram Oxalate [Lexapro -] 5 mg PO DAILY #90 tablet 03/25/16 Metoprolol Succinate [Toprol XL -] 100 mg PO BID #90 tab.sr.24h 03/25/16 Family Disease History - Family Disease History Family Disease History: Diabetes: Mother (alive 91), Brother Review of Systems - Review of Systems Constitutional: denies: Chills, Fever, Lethargy Eyes: denies: Blurred Vision, Double Vision HENT: denies: Difficult Swallowing, Epistaxis Cardiovascular: denies: Chest Pain, Edema, Palpitations, Shortness of Breath Respiratory: denies: Cough, Exercise Intolerance, Orthopnea, PND, SOB Gastrointestinal: denies: Abdominal Pain, Constipation, Diarrhea Genitourinary: denies: Dysuria, Flank Pain, Frequency Musculoskeletal: denies: Back Pain, Crepitus, Extremity Pain Neurological: denies: Change in LOC, Change in Speech, Confusion, Dizziness, Seizure, Syncope Endocrine: denies: Excessive Sweating, Flushing Hematology/Lymphatic: denies: Easily Bruised, Excessive Bleeding Psychiatric: denies: Altered Sleep Pattern, Anxiety, Depression, Suicidal Physical Examination Vital Signs: Vital Signs Temperature 98.3 F 05/08/16 16:30 Pulse Rate 84 05/08/16 16:30 Respiratory Rate 18 05/08/16 16:30 Blood Pressure 154/81 05/08/16 16:30 O2 Sat by Pulse Oximetry (%) 99 05/08/16 15:35 Constitutional: Yes: No Distress, Calm Eyes: Yes: Conjunctiva Clear HENT: Yes: Atraumatic Neck: Yes: Supple Cardiovascular: Yes: Regular Rate and Rhythm Respiratory: Yes: CTA Bilaterally Gastrointestinal: Yes: Soft. No: Distention, Tenderness Renal/: No: CVA Tenderness - Left, CVA Tenderness - Right, Hematuria Musculoskeletal: No: Joint Stiffness, Joint Swelling Extremities: No: Cold, Cool Edema: No Peripheral Pulses WNL: Yes Integumentary: No: Rash, Venous Stasis Changes Neurological: Yes: WNL, Alert, Oriented ...Motor Strength: WNL Psychiatric: Yes: WNL, Alert, Oriented. No: Agitated, Suicidal Ideation Imaging - Results Other: Report Reviewed Assessment/Plan The patient is a 66 year old female, with a significant past medical history of anemia, HTN, CVA end-stage renal disease on hemodialysis, IDDM, who was BIBA presents to the emergency department with dialysis shunt problem occurring today. Patient reports going to dialysis to where she was unable to receive treatment secondary to shunt problem. She reports her shunt was working fine saturday. admit for further renal and vascular sx and dyalisis d/w pt and staff
[2016-05-08] MEDS ORDERED: ACETAMINOPHEN 325 MG TABLET (FP) PO PRN (19:22)
--- NOTE | 2016-05-09 09:26 | PN ---
Progress Note (short form) - Note Progress Note: Anesthesia post op check: Patient seen at bedside, no adverse effects of anesthetic, had replacement of permacath under monitored anesthesia care, post op day one, Dept of anesthesia will sign off care at this time.
--- NOTE | 2016-05-09 10:43 | DS ---
Physical Examination Vital Signs: Vital Signs Temperature 98.3 F 05/09/16 09:01 Pulse Rate 80 05/09/16 09:01 Respiratory Rate 18 05/09/16 09:01 Blood Pressure 116/59 05/09/16 09:01 O2 Sat by Pulse Oximetry (%) 99 05/08/16 15:35 Findings/Remarks: admitted for permacath exchange doing well, s/p HD changed no bleed no pain, afebrile; wants to go home today! has HD last night tolerated OK d/w renal dr Paz and vasc sx dr Nick OK to DC home; next HD tomorrow Constitutional: Yes: No Distress, Calm Eyes: Yes: Conjunctiva Clear HENT: Yes: Atraumatic Neck: Yes: Supple Cardiovascular: Yes: Regular Rate and Rhythm Respiratory: Yes: CTA Bilaterally Gastrointestinal: Yes: Soft. No: Distention, Tenderness Renal/: No: CVA Tenderness - Left, CVA Tenderness - Right Musculoskeletal: No: Joint Stiffness, Joint Swelling Extremities: No: Cold, Cool Edema: No Integumentary: No: Rash, Venous Stasis Changes Wound/Incision: Yes: Other (R chest permacath no bleed no rash no swelling) Neurological: Yes: WNL, Alert, Oriented ...Motor Strength: WNL Psychiatric: Yes: WNL, Alert, Oriented. No: Agitated, Suicidal Ideation Discharge Summary Reason For Visit: DIALYSIS CATHER CLOT OR FAILURE,DIALYSIS Current Active Problems Dialysis catheter clot or failure (Acute) Procedures: Principal: permacath changed for malfunctioning Other Procedures: dyalisis per renal Hospital Course: stable DC home f/u as advised Condition: Stable - Instructions Diet, Activity, Other Instructions: f/u with renal and vascular surgery as advised HD per renal 3 D/week RTER if any pain rash bleed or fever d/w pt and staff, d/w CM Referrals: Rebecca Villarreal [Primary Care Provider] - Chris Nick MD [Staff Physician] - Jon Paz MD [Staff Physician] - Disposition: VNS/HOME HEALTH CARE - Home Medications Comprehensive Discharge Medication List: Ambulatory Orders Aspirin/Dipyridamole [Aggrenox -] 1 combo PO BID 12/23/15 Methimazole 5 mg PO DAILY 12/23/15 Ferrous Sulfate [Feosol] 325 mg PO TIDCM ud 01/12/16 Escitalopram Oxalate [Lexapro -] 5 mg PO DAILY #90 tablet 03/25/16 Metoprolol Succinate [Toprol XL -] 100 mg PO BID #90 tab.sr.24h 03/25/16
[2016-05-09 12:40] VITALS: BP 120/60; PULSE 79; TEMP 98.2
--- NOTE | 2016-05-09 16:25 | PN ---
Progress Note (short form) - Note Progress Note: Renal Follow up for ESRD Pt seen and examined at the bedside s/p HD yesterday s/p HD catheter exchange yesterday no sob or chest pain feels well Vital Signs Temperature 98.2 F 05/09/16 11:00 Pulse Rate 79 05/09/16 11:00 Respiratory Rate 18 05/09/16 11:00 Blood Pressure 120/60 05/09/16 11:00 O2 Sat by Pulse Oximetry (%) 100 05/09/16 09:00 Gen: NAD, awake and alert CVS: RRR, No M/R Lungs: CTA no rales or wheeze. Abd: Obese, mild tenderness Ext: No edema, clubbing or cyanosis CBC, BMP 05/08/16 11:49 05/08/16 11:49 A/P 66 year old woman with PMhx of ESRD on HD (TTS at [facility]) , Hypertension, DM, Hep C who presented with a nonfunctioning HD catheter. #HD catheter dysfunction s/p exchange by Dr. Sandoval GARCIA in place and developing #ESRD on HD tolerated HD well yesterday no indication for dialysis today next hd tomorrow as outpatient Jon Paz DO
[2016-05-10 06:06] LABS: HEP B SURFACE AB Non Reactive (.)
--- NOTE | 2016-05-10 08:32 | PATH ---
Surgical Pathology Report Patient Name: JERZY NEVAREZ Med. Rec. 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 Electronically Signed Russell Joseph M.D. Gross Description Received fresh, labeled "permacath," is a 40 cm in length double lumen catheter. No soft tissue is present. No sections are submitted, gross only. /05/09/201605/09/2016
[2016-05-13 16:13] LABS: HCV LOG 10 5.774 (.)
--- NOTE | 2016-06-07 19:18 | OP ---
DATE OF OPERATION: 06/08/2016 PREOPERATIVE DIAGNOSIS: Malfunctioning PermCath. POSTOPERATIVE DIAGNOSIS: Malfunctioning PermCath. PROCEDURE: PermCath exchange. SURGEON: Chris Márquez D.O. ANESTHESIA: Fractional. BLOOD LOSS: 10 mL. INDICATION: The patient is a 66-year-old female that comes in from the dialysis unit because her PermCath is not functioning well. It was found it would need to be changed over a guidewire. Patient was consented for the procedure understanding all risks, benefits, and alternatives and then taken to the operating room. DESCRIPTION OF PROCEDURE: Once in the operating room, patient was laid on the operating table in a supine manner, and the area of the right neck and chest prepped and draped in a sterile surgical manner with Betadine. We then placed a 0.035 floppy guidewire into the PermCath under fluoroscopy. We then dissected off the cuff. We then injected 10 mL of lidocaine 1% around the cuff of the catheter, and the cuff was dissected using Metzenbaum scissors. Once the cuff was released and the catheter was released, the catheter was removed and discarded. We then exchanged our gloves and got new gloves for sterility purposes, and we went ahead and placed a new 23 PermCath over the guidewire into the vein under fluoroscopy. Once placed, we then josephine back on each port of the catheter. There was good flow. Heparinized saline was injected and 2000 units of IV heparin were injected into each port. 4-0 Biosyn was used and 1 simple stitch was placed at the exit site. 2-0 nylon was used to attach the catheter to the skin. Biopatch, 4x4s, Tegaderm was then placed. The patient tolerated the procedure without complications. Patient was transferred to PACU in stable condition where chest x-ray will be obtained. CHRIS MÁRQUEZ DO 1 LEEROY/[id number]
== END 2016-05-09 13:08 | disposition home health service (06) | DRG 252 ==
LOC: JER 09:24 → JERBED 11:53 → J7W 16:22
PROVIDERS: ADMIT Internal Medicine; ATTEND Internal Medicine
PROC: 02H633Z Insertion of Infusion Device into Right Atrium, Percutaneous Approach (ICD-10-PCS; 2016-05-08)
PROC: 3E08317 Introduction of Other Thrombolytic into Heart, Percutaneous Approach (ICD-10-PCS; 2016-05-08)
PROC: 5A1D60Z (ICD-10-PCS; 2016-05-08)
PROC: 05PY03Z Removal of Infusion Device from Upper Vein, Open Approach (ICD-10-PCS; principal; 2016-05-08 13:30)
DX: T82.41XA Breakdown (mechanical) of vascular dialysis catheter, initial encounter (principal); N18.6 End stage renal disease; I12.0 Hypertensive chronic kidney disease with stage 5 chronic kidney disease or end stage renal disease; I69.354 Hemiplegia and hemiparesis following cerebral infarction affecting left non-dominant side; Y83.8 Other surgical procedures as the cause of abnormal reaction of the patient, or of later complication, without mention of misadventure at the time of the procedure; Y92.89 Other specified places as the place of occurrence of the external cause; Z99.2 Dependence on renal dialysis; E78.5 Hyperlipidemia, unspecified; J45.909 Unspecified asthma, uncomplicated; J84.89 Other specified interstitial pulmonary diseases; K21.9 Gastro-esophageal reflux disease without esophagitis; K59.00 Constipation, unspecified; E05.80 Other thyrotoxicosis without thyrotoxic crisis or storm; D63.8 Anemia in other chronic diseases classified elsewhere; M19.90 Unspecified osteoarthritis, unspecified site; E11.319 Type 2 diabetes mellitus with unspecified diabetic retinopathy without macular edema; E11.40 Type 2 diabetes mellitus with diabetic neuropathy, unspecified; Z79.4 Long term (current) use of insulin
CPT/HCPCS: 36415; 71010-TC; 76000-TC; 80048; 85025; 86704; 86706; 86708; 87340; 87522; 88300-TC; 94760; 99285-25; J1644

== ENCOUNTER 2016-06-23 09:43 | Inpatient (IN) | payer OTHER ==
[2016-06-23 10:01] VITALS: BMI 32.1
[2016-06-23] MEDS ORDERED: ADENOSINE 6 MG/2 ML VIAL IVPUSH ONE ×4 (10:20→15:33)
--- NOTE | 2016-06-23 10:21 | PDOC ---
History of Present Illness - General Chief Complaint: Tachycardia Stated Complaint: TACHYCARDIA Time Seen by Provider: 06/23/16 09:56 History Source: Patient Exam Limitations: No Limitations - History of Present Illness Initial Comments: 06/23/16 10:21 66y F hx of anemia, htn, cva, ESRD (on dialysis , , Sat, last dialysis , had 1 hr of dialysis today), IDDM, hx of DVT, presents to the ED for evaluation of tachycardia. The pt was feeling well this morning, and was at dialysis when they saw that her HR was very high and bp was low. The pt endoreses a mild headache and palpitations, but denies any other sypmtoms including cp, sob, leg swelling, gibson, abd pain, n/v, abd pain. pt states she hasnt really had her breakfast yet nor her meds (beside one med that she doesnt remember). The pt states this has happened once before a few months ago. Aftr the pt arrived, she had an EKG that showed sVt at 142 with sbp in 120s, and a rectal temp - and her HR had spontenously reverted to a NSR at 90 - I went to evalutae the patient and during my exam, she went back to SVT in the 130-140s with a normal BP (was unable to obtain an EKG in time). Allergies: None Known Drug Allergies. Nuts. Pats Surgical History: Appendectomy. Caesarian Sections x3. Tubal ligation. Social History: No tobacco, ETOH and recreational drug use. Primary Care Physician: Dr. Rebecca Villarreal Concrete Pile Driver Operator: Dr. Garfield Gutierrez Giving Officer: Dr. Alessia Keenan Past History - Past Medical History Allergies/Adverse Reactions: Allergies Allergy/AdvReac Type Severity Reaction Status Date / Time nut - unspecified [nut] Allergy Verified 06/23/16 09:54 Home Medications: Ambulatory Orders Aspirin/Dipyridamole [Aggrenox -] 1 combo PO BID 12/23/15 Methimazole 5 mg PO DAILY 12/23/15 Clonidine HCl 0.1 mg PO TID 06/23/16 Diltiazem [Cardizem -] 120 mg PO DAILY 06/23/16 Ferrous Sulfate [Feosol] 325 mg PO BID 06/23/16 Furosemide [Lasix] 80 mg PO DAILY 06/23/16 Metoprolol Succinate [Toprol XL -] 50 mg PO DAILY 06/23/16 Prednisone [Deltasone -] 5 mg PO DAILY 06/23/16 Ranitidine HCl 150 mg PO BID 06/23/16 Anemia: Yes Asthma: Yes Cancer: No Cardiac Disorders: No CVA: Yes COPD: No CHF: Yes Dementia: No Diabetes: Yes Dialysis: Yes () GI Disorders: No Disorders: No HTN: Yes Hypercholesterolemia: No Liver Disease: No Seizures: No Thyroid Disease: Yes - Surgical History Abdominal Surgery: No Appendectomy: Yes Cardiac Surgery: No Cholecystectomy: No Lung Surgery: No Neurologic Surgery: No Orthopedic Surgery: No - Psycho/Social/Smoking Cessation Hx Anxiety: No Suicidal Ideation: No Smoking Status: No Smoking History: Never smoked Have you smoked in the past 12 months: No Number of Cigarettes Smoked Daily: 0 Information on smoking cessation initiated: No Hx Alcohol Use: No Drug/Substance Use Hx: No Substance Use Type: None Hx Substance Use Treatment: No Cardiac Specific PMH - Complaint Specific PMHX Pacemaker: No Review of Systems - Review of Systems Able to Perform ROS?: Yes Comments:: 06/23/16 10:28 Constitutional - no reported Fever, Chills, weakness, HEENT: no reported vision changes, sore throat Respiratory: no reported cough, sob, hemoptysis Cardiac: no reported chest pain, palpitations, light headedness, leg swelling Abd/GI: no reported abd pain, nausea, vomiting, blood per rectum, melena, diarrhea : no reported dysuria, frequency, discharge Musculskelatal - no reported back pain, joint swelling skin - no reported bruising, erythema, rash neurological: no reported headache, numbness, focal weakness, tingling, ataxia, weakness hematologic: no reported anemia, easy bruising, easy bleeding *Physical Exam - Vital Signs Last Vital Signs Temp Pulse Resp BP Pulse Ox 99.5 F 84 20 141/78 100 06/23/16 10:04 06/23/16 15:34 06/23/16 15:34 06/23/16 15:34 06/23/16 15:34 - Physical Exam Comments: 06/23/16 10:44 GENERAL: The patient is awake, alert, and fully oriented, Nontoxic - in no acute distress. HEAD: Normocephalic, atraumatic. EYES: extraocular movements intact, sclera anicteric, conjunctiva clear. ENT: Normal voice, Moist mucous membranes. NECK: Normal range of motion, supple LUNGS: Breath sounds equal, clear to auscultation bilaterally. No wheezes, no rhonchi, no rales. CHEST: permcath on R chest w/o any tenderness/discharge HEART:tachycardic, regular ABDOMEN: Soft, nontender, normoactive bowel sounds. No guarding, no rebound. . No CVA tenderness EXTREMITIES: +LUE fistula with thrill, Normal range of motion, no edema. No cords, erythema, or calf tenderness. NEUROLOGICAL: No facial assymetry, Normal speech, moving all 4 extremities spontanoeusly and symmetrically PSYCH: Normal mood, normal affect. SKIN: Warm, Dry, normal turgor, Heart Score/ECG Review - ECG Impressions Comment:: 06/23/16 10:49 Twelve-lead EKG was performed and reviewed by me. ekg performed at 10:00 rate of 142 narrow complex qrs twi in I and vl Impression: svt Twelve-lead EKG was performed and reviewed by me. There is normal sinus rhythm with a rate of 105 1st degree AV block There is normal R wave progression twi in I and avl - present on ekg from 03/11/2016 Impression: sinus tachycardia ED Treatment Course - LABORATORY CBC & Chemistry Diagram: 06/23/16 10:42 06/23/16 10:42 - ADDITIONAL ORDERS Additional order review: Laboratory Results 06/23/16 06/23/16 06/23/16 10:42 10:42 10:42 INR 1.11 Sodium 139 Potassium 4.2 Chloride 105 Carbon Dioxide 25 Anion Gap 9 BUN 20 H Creatinine 2.6 H Creat Clearance w eGFR 18.42 Random Glucose 72 L Calcium 8.5 Phosphorus 2.6 Magnesium 2.0 Total Bilirubin 0.5 AST 33 D ALT 23 D Alkaline Phosphatase 91 D Creatine Kinase 47 Troponin I 0.08 H Total Protein 6.5 Albumin 2.8 L TSH 2.74 D Blood Type O POSITIVE Antibody Screen Positive H Antibody Identification No Result Required. Antigen Identification Jkb Antigen - NEGATIVE 06/23/16 10:42 RBC 4.15 MCV 83.2 MCHC 32.7 RDW 16.7 H MPV 9.0 Neutrophils % 64.3 Lymphocytes % 22.3 Monocytes % 10.3 H Eosinophils % 1.9 Basophils % 1.2 - RADIOLOGY Radiology Studies Ordered: Category Date Time Status CHEST X-RAY PORTABLE* [RAD] Stat Radiology 06/23/16 10:03 Completed - Medications Given in the ED: ED Medications Discontinued Medications Generic Name Dose Route Start Last Admin Trade Name Chuchoq PRN Reason Stop Dose Admin Adenosine 6 mg 06/23/16 10:20 06/23/16 10:38 Adenocard - IVPUSH 06/23/16 10:21 6 mg ONCE ONE Administration Diltiazem HCl 90 mg 06/23/16 12:41 06/23/16 13:45 Cardizem - PO 06/23/16 12:42 90 mg ONCE ONE Administration Medical Decision Making - Medical Decision Making 06/23/16 10:45 66y F hx of ESRD on dialysis, dm, dvt, presents with complaint of tachycardia and hypotension. The patient was noted to be in SVT upon arrival and had broken spontaneously and reverted bcak t oSVT when I was examining the patient. The pts BP was normal here. The pt was given 6mg of adenosine which broke her SVT to current NSR. will obtain electrolytes, labs to reassess the patient. will discuss with dr. villarreal and dr. gutierrez regarding disposition 06/23/16 12:42 pts labs reviewed fairly unremarakble pts trop at 0.08 - suspect due to demand - will obtain 2nd trop pts HR has been NSR in 90s since cardioversion case dw dr. Gutierrez who was here seeing the patient - states that she is using less than optimal dose of dilitazem and that is the likely cause of her SVT episode today - would recommend givng her 90 of cardizem an dobtaining 2nd trop Dr. Gutierrez had an indepth conervation wit hthe patint and family - they will follow up with him in the office on saturday. 06/23/16 12:55 case dw patient and dr. villarreal will obtain trop at 6 hrs will restart the pt on 90mg TID of dilitazem if feeling well and HR is normal will d/c with fu carlene gutierrez on saturday06/23/16 15:01 The pt went into SVT again wit hHR of 153 will give pt another dose of adenosine will admit/observe due to recurrence of SVT for further mangaement will discuss with dr. Gutierrez and Dr. Villarreal 06/23/16 15:47 pt HR went back into sinus 80s prior to adenosine, but would worsen again to svt and improve after a few minutes prior to intervension case dw dr. villarreal agreed with admission for furhter mangaement will notify dr. gutierrez to discuss further mangaement and recommendations for control of her SVT CRITICAL CARE DOCUMENTATION: I spent ~105 minutes of Critical Care time, excluding separately billable procedures, involving high complexity decision making to assess, manipulate and support vital system function(s) to treat single or multiple vital organ system failure and/or to prevent further life threatening deterioration of the patient' s condition. 06/23/16 16:10 pts HR currently 85 NSR prior to interveition case dw dr. gutierrez - we can consider 10mg of diltiazem IV bolus for control, and if on floor can use adenosine 6mg prn. *DC/Admit/Observation/Transfer Diagnosis at time of Disposition: SVT (supraventricular tachycardia), End stage renal disease on dialysis - Discharge Dispostion Admit: Yes Decision to Admit order Date/Time: Decision to Admit Order Category Date Time Status Decision to Admit to Hospital Routine Admission 06/23/16 15:54 Active - Referrals Referrals: Rebecca Villarreal [Primary Care Provider] -
[2016-06-23 10:52] LABS: BASOPHIL 1.2 % (0-2.0); EOSINOPHIL 1.9 % (0-4.5); MCH 27.2 pg (25.7-33.7); MCHC 32.7 g/dl (32.0-36.0); MEAN CELL VOLUME 83.2 fl (80-96); NEUTROPHILS 64.3 % (42.8-82.8); PLATELET COUNT 219 K/MM3 (134-434); RDW 16.7 % (11.6-15.6)
[2016-06-23 11:04] LABS: INR 1.11 (0.82-1.09); PROTHROMBIN TIME (PATIENT) 12.2 SEC (9.98-11.88)
[2016-06-23 11:26] LABS: ALBUMIN 2.8 g/dl (3.4-5.0); BILIRUBIN,TOTAL 0.5 mg/dL (0.2-1.0); CALCIUM 8.5 mg/dL (8.5-10.1); COCKROFT - GAULT 30.328; CREATININE 2.6 mg/dL (0.55-1.02); PHOSPHOROUS 2.6 mg/dL (2.5-4.9); TOT PROT 6.5 g/dl (6.4-8.2)
[2016-06-23 11:35] LABS: THYROID STIMULATING HORMONE 2.74 uIU/ml (0.358-3.74); TROPONIN I 0.08 ng/ml (0.00-0.05)
--- NOTE | 2016-06-23 11:53 | CON.CARD ---
Consult Consult Specialty:: cardio Referred by:: kee Reason for Consultation:: svt - History of Present Illness Chief Complaint: tachy at HD History of Present Illness: 66y F presents to the ED for evaluation of tachycardia. HR rapid with low bp while at dialysis today admits to +mild headache and palpitations EKG in ER showed SVT at 142 with sbp in 120s--spontenously reverted to a NSR at 90. during dr redd exam, pt went back to SVT in the 130-140s with a normal BP--broke with adenosine per his report well known to me from mult prior visits, with known h/o PSVT difficult to manage but responsive to high dose diltiazem previously (90 TID as of d/c 03/20); currently taking 30mg TID per granddtr who administers meds--neither recall when /who decr'd dose or why (of note: hospitalized here 05/18 for AVF issues--diltiazem not listed on admit med list or d/c med instrxns then) pt denies any palpitations at home since last hosp stay, or episodes at HD prior to today she also denies any hypotension limiting HD denies any cp sx's at all, and no sob or orthopnea PMH: anemia, htn, cva, ESRD IDDM, hx of DVT syst chf PSVT possible ILDz, treated with empiric steroids on prior admit here - Past Medical History 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: CVA (transient speech loss and left hemiparesis in 2012) Cardio/Vascular: Yes: CHF (end diastolic), HTN, Hyperlipdemia Pulmonary: Yes: Asthma, Pneumonia, Other (ILD) Gastrointestinal: Yes: Constipation, GERD Hepatobiliary: Yes: Hepatitis C Renal/: Yes: Renal Inusuff, Renal Inusuff Musculoskeletal: Yes: Osteoarthritis Endocrine: Yes: Diabetes Mellitus (diabetic retinopathy ( treated ) and neuropathy), Hyperthyroidism (Graves Disease with thyroid nodule), Other ( THYROID DISEASE) - Past Surgical History Past Surgical History: Yes: Appendectomy, Colonoscopy, (C section x 4) , Hysterectomy - Alcohol/Substance Use Hx Alcohol Use: No History of Substance Use: reports: None - Smoking History Smoking history: Never smoked Have you smoked in the past 12 months: No Aproximately how many cigarettes per day: 0 - Social History Usual Living Arrangement: Alone ADL: Independent History of Recent Travel: No Home Medications - Allergies Allergies/Adverse Reactions: Allergies Allergy/AdvReac Type Severity Reaction Status Date / Time nut - unspecified [nut] Allergy Verified 06/23/16 09:54 - Home Medications Home Medications: Ambulatory Orders Aspirin/Dipyridamole [Aggrenox -] 1 combo PO BID 12/23/15 Methimazole 5 mg PO DAILY 12/23/15 Clonidine HCl 0.1 mg PO TID 06/23/16 Diltiazem [Cardizem -] 120 mg PO DAILY 06/23/16 Ferrous Sulfate [Feosol] 325 mg PO BID 06/23/16 Furosemide [Lasix] 80 mg PO 06/23/16 Metoprolol Succinate [Toprol XL -] 50 mg PO DAILY 06/23/16 Prednisone [Deltasone -] 5 mg PO DAILY 06/23/16 Ranitidine HCl 150 mg PO BID 06/23/16 Family Disease History - Family Disease History Family Disease History: Diabetes: Mother (alive 91), Brother Vital Signs: Vital Signs Temperature 99.5 F 06/23/16 10:04 Pulse Rate 87 06/23/16 10:51 Respiratory Rate 16 06/23/16 10:51 Blood Pressure 131/76 06/23/16 10:51 O2 Sat by Pulse Oximetry (%) 100 06/23/16 10:51 - Other Data Labs, Other Data: CBC, BMP 06/23/16 10:42 06/23/16 10:42 INR, PTT INR 1.11 (0.82-1.09) 06/23/16 10:42 Troponin, BNP 06/23/16 10:42 Troponin I 0.08 H Troponin, BNP 06/23/16 10:42 Troponin I 0.08 H Imaging - Results Chest X-ray: Report Reviewed ("decreased congestive changes vs 05/18" (images very tds and not able to enhance on [email or web address])) Assessment/Plan Echo 03/22/16: Mod LV global systolic dysfunction. Nl RV. trace MR. (Per echo report, no significant difference in EF's of all echos) Echo 03/12/16: mild LV dilation. Moderately reduced LV fn. Severe apical wall HK. MIld LAE. Mod-sev MR. Mod TR. RVSP 30-40. 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) on prior review of tele strips in hospital (fact that it was aborted with adenosine in ER further supports AVN dependent circuit as substrate here) - in past, episodes of SVT seem to correlate with hypotension - during prior admits her SVT not responsive to escalating doses of BB, much better controlled with diltiazem - sent home on diltiazem 90 tid and toprol 100 bid last time--med confusion has led to currently on 1/3 the diltiazem dose per dtr hx--hence, we have a good explanation for SVT recurrence (- no amio given suspicion of IPF by pulm previously, no Ic agents given depressed LVEF, no multaq given mult acute syst chf episodes) - ? tachy-CMP previously, as below - followed up with me once after hosp discharge, then did not return for echo as advised - informed pt and granddtr she needs echo: if EF normal, can continue CCB and defer cath; if EF remains down (despite months of no PSVT sx's), then need d/c diltiazem, needs SVT ablation, and needs cath to r/o chronic CAD as cause of LV dysfxn - she does not want to stay until saturday for echo - given absence of any sx's of angina (now and always), no isch ecg findings, and no signs/sx of decomp chf, i am ok with echo in my office saturday and pt and pineda promise they will come (coming here for dr thomas appcarmen 10am anyway, will stop at my office first to schedule echo in afternoon same day) - resume diltiazem 90mg TID (cont metopr 50 qd for now) - repeat troponin at 6 hrs Cardiomyopathy - progressive drop in EF over the course of the past 12 mo or so. - SVTs well controlled in hosp for 2 wks 03/20, EF not improved--was to have repeat echo in office with me after 6-12 wks of good tachy control, i do not recall her complying with this f/u but will check records - she previously declined invasive ischemia eval with cath--unable to complete stress test in hospital due to lack of IV access, then again when attempted in office shortly after discharge - repeat echo: if EF remains down, should have cath - cont dilt for now, pending EF reassessment, as above - Con't po lasix and volume management per HD/UF/renal. Mitral regurgitation, functional: -not severe on prior review of hosp echo images by dr gutierrez -vol mgmt primarily via HD/UF, per renal -resolved on most recent echo. chronic lung dz, ? ILDz: - resp failure during prior admit with pulm infiltrates of unclear etiology, suspected ILDz of ? etiology, clinically improved with empiric steroids trial, open lung bx deferred (bronch was unrevealing) - 12/[address] dilated IVC but only small effusions, with upper lobe infiltrates more c/w PNA than chf (dr devi review: recurrent consolidation in changing locations/distributions in comparison to prior CT, possibly c/w cryptogenic organizing pneumonia/BOOP)--needs outpt pulm f/u. HTN -cont same meds for now, monitor -? if bp dropping during HD (or just SVT phenomenon on DOA) ESRD, on HD: -s/p renal bx last time here c/w DM nephropathy -HD per renal h/o CVA - has been on aggrenox chronically
[2016-06-23] MEDS ORDERED: dilTIAZem HCL 60 MG TABLET (FP) PO ONE (12:41)
[2016-06-23] MEDS ORDERED: dilTIAZem HCL 60 MG TABLET (FP) PO SCH ×2 (13:00→14:00)
[2016-06-23] MEDS ORDERED: dilTIAZem HCL 30 MG TABLET (FP) ONE ×2 (13:43→21:25)
[2016-06-23] MEDS: DILTIAZEM 30 MG, DILTIAZEM 60 MG PO SCH ×2 (14:07→21:32)
[2016-06-23 17:24] LABS: TROPONIN I 0.09 ng/ml (0.00-0.05)
--- NOTE | 2016-06-23 19:56 | HP ---
Admitting History and Physical - Primary Care Physician PCP: Rebecca Villarreal S - Admission Chief Complaint: tachycardia History of Present Illness: 66y F hx of anemia, htn, cva, ESRD (on dialysis , , Sat, last dialysis , had 1 hr of dialysis today), IDDM, hx of DVT, presents to the ED for evaluation of tachycardia. The pt was feeling well this morning, and was at dialysis when they saw that her HR was very high and bp was low. The pt endoreses a mild headache and palpitations, but denies any other symptoms including cp, sob, leg swelling, gibson, abd pain, n/v, abd pain. pt states she hasn't really had her breakfast yet nor her meds (beside one med that she doesn' t remember). The pt states this has happened once before a few months ago. 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: CVA (transient speech loss and left hemiparesis in 2012) Cardiovascular: Yes: CHF (end diastolic), HTN, Hyperlipdemia Pulmonary: Yes: Asthma, Pneumonia, Other (ILD) Gastrointestinal: Yes: Constipation, GERD Hepatobiliary: Yes: Hepatitis C Renal/: Yes: Renal Inusuff, Renal Inusuff Heme/Onc: Yes: Anemia Musculoskeletal: Yes: Osteoarthritis Endocrine: Yes: Diabetes Mellitus (diabetic retinopathy ( treated ) and neuropathy), Hyperthyroidism (Graves Disease with thyroid nodule), Other ( THYROID DISEASE) - Past Surgical History Past Surgical History: Yes: Appendectomy, Colonoscopy, (C section x 4) , Hysterectomy - Smoking History Smoking history: Never smoked Have you smoked in the past 12 months: No Aproximately how many cigarettes per day: 0 - Alcohol/Substance Use Hx Alcohol Use: No History of Substance Use: reports: None - Social History ADL: Independent History of Recent Travel: No Home Medications - Allergies Allergies/Adverse Reactions: Allergies Allergy/AdvReac Type Severity Reaction Status Date / Time nut - unspecified [nut] Allergy Verified 06/23/16 09:54 - Home Medications Home Medications: Ambulatory Orders RX: Aspirin/Dipyridamole [Aggrenox -] 1 combo PO BID 12/23/15 RX: Methimazole 5 mg PO DAILY 12/23/15 Diltiazem [Cardizem -] 120 mg PO DAILY 06/23/16 Furosemide [Lasix] 80 mg PO DAILY 06/23/16 Prednisone [Deltasone -] 5 mg PO DAILY 06/23/16 RX: Clonidine HCl 0.1 mg PO TID 06/23/16 RX: Ferrous Sulfate [Feosol] 325 mg PO BID 06/23/16 RX: Metoprolol Succinate [Toprol XL -] 50 mg PO DAILY 06/23/16 RX: Ranitidine HCl 150 mg PO BID 06/23/16 Family Disease History - Family Disease History Family Disease History: Diabetes: Mother (alive 91), Brother Review of Systems - Review of Systems Constitutional: denies: Chills, Fever Eyes: denies: Blind Spots, Blurred Vision, Double Vision HENT: denies: Difficult Swallowing, Ear Pain, Epistaxis Neck: denies: Stiffness, Tenderness Cardiovascular: denies: Chest Pain, Palpitations, Shortness of Breath Respiratory: denies: Cough, SOB Gastrointestinal: denies: Abdominal Pain, Bloating, Constipation, Diarrhea, Melena Genitourinary: denies: Burning, Dysuria, Flank Pain Musculoskeletal: denies: Back Pain, Muscle Pain Integumentary: denies: Erythema, Rash, Wound Neurological: denies: Change in LOC, Change in Speech, Confusion, Dizziness, Numbness, Pre-Existing Deficit Endocrine: denies: Unexplained Weight Gain, Unexplained Weight Loss Hematology/Lymphatic: denies: Easily Bruised, Excessive Bleeding Psychiatric: denies: Altered Sleep Pattern, Anxiety, Depression, Suicidal Physical Examination Vital Signs: Vital Signs Temperature 98.9 F 06/23/16 18:12 Pulse Rate 83 06/23/16 18:12 Respiratory Rate 20 06/23/16 18:12 Blood Pressure 135/64 06/23/16 18:12 O2 Sat by Pulse Oximetry (%) 100 06/23/16 18:12 Constitutional: Yes: No Distress, Calm Eyes: Yes: Conjunctiva Clear HENT: Yes: Atraumatic Neck: Yes: Supple Cardiovascular: Yes: Regular Rate and Rhythm, Tachycardia Respiratory: Yes: CTA Bilaterally Gastrointestinal: Yes: Soft. No: Distention, Tenderness Renal/: No: CVA Tenderness - Left, CVA Tenderness - Right, Hematuria Musculoskeletal: No: Joint Stiffness, Joint Swelling Extremities: No: Cold, Cool, Cyanosis Edema: No Peripheral Pulses WNL: Yes Integumentary: No: Skin Tear, Venous Stasis Changes Neurological: Yes: WNL, Alert, Oriented ...Motor Strength: WNL Psychiatric: Yes: WNL, Alert, Oriented. No: Agitated, Suicidal Ideation Imaging - Results Chest X-ray: Report Reviewed Other: Report Reviewed Assessment/Plan 66y F hx of anemia, htn, cva, ESRD (on dialysis , , Sat, last dialysis , had 1 hr of dialysis today), IDDM, hx of DVT, presents to the ED for evaluation of tachycardia. The pt was feeling well this morning, and was at dialysis when they saw that her HR was very high and bp was low. The pt endorsees a mild headache and palpitations, but denies any other symptoms including cp, sob, leg swelling, gibson, abd pain, n/v, abd pain. pt states she hasn't really had her breakfast yet nor her meds (beside one med that she doesn' t remember). The pt states this has happened once before a few months ago. Aftr the pt arrived, she had an EKG that showed sVt at 142 with sbp in 120s, and a rectal temp - and her HR had spontaneously reverted to a NSR at 90 - I went to evalutae the patient in ER and during my exam, she went back to SVT in the 130-140s with a normal BP d/w ER dr Krishnan and cardio dr Arriaza; adenosine was administered and pt initially went back to SR 90s but then a short time later went back up in SVT pt was on diltiazem CD at home and toprol XL will admit to telemetry check CE, echo check TFTs also will check if due for chest CT (was supposed to have f/u chest CT outpt for bilateral INF) will ask renal to eval pt; she did not finish her dyalisis today (was interupted 1 hour within) falls decubs DVT PFX d/w pt and staff all the above \d/w pt and grand daughter at bedside prognosis guarded t time 75 min
[2016-06-23] MEDS ORDERED: dilTIAZem HCL 60 MG TABLET (FP) ONE (21:25)
[2016-06-23] MEDS: ASPIRIN/DIPYRIDAMOLE 25 MG/200 MG CAPSULE (FP) PO SCH (21:30)
[2016-06-23] MEDS: cloNIDine HCL 0.1 MG TABLET PO SCH (21:32)
[2016-06-23] MEDS: HEPARIN NA (PORCINE) 5,000 UNITS/ML 1ML VIAL SQ SCH (21:32)
[2016-06-23] MEDS: FERROUS SO4 325 MG TABLET (FP) PO SCH (21:32)
[2016-06-23] MEDS: RANITIDINE HCL 150 MG TABLET (FP) PO SCH (21:33)
[2016-06-24] MEDS ORDERED: dilTIAZem HCL 60 MG TABLET (FP) ONE ×3 (05:09→20:52)
[2016-06-24] MEDS ORDERED: dilTIAZem HCL 30 MG TABLET (FP) ONE ×3 (05:09→20:52)
[2016-06-24] MEDS: DILTIAZEM 30 MG, DILTIAZEM 60 MG PO SCH ×3 (05:24→20:59)
[2016-06-24] MEDS: cloNIDine HCL 0.1 MG TABLET PO SCH ×3 (05:25→20:59)
--- NOTE | 2016-06-24 06:47 | PN ---
Progress Note, Physician Chief Complaint: svt History of Present Illness: stayed in hosp yest b/c recurrent freq PSVTs in ER; reports palpitations with those episodes, stopped since last night no sob, orthopnea no cp no syncope no cigs - Current Medication List Current Medications: Active Medications Clonidine (Catapres -) 0.1 mg PO TID [facility] Last Admin: 06/24/16 05:25 Dose: 0.1 mg Diltiazem HCl 30 mg/ Diltiazem (HCl 60 mg) 90 mg PO TID [facility] Last Admin: 06/24/16 05:24 Dose: 90 mg Dipyridamole/Aspirin (Aggrenox -) 1 combo PO BID [facility] Last Admin: 06/23/16 21:30 Dose: 1 combo Ferrous Sulfate (Feosol -) 325 mg PO BID [facility] Last Admin: 06/23/16 21:32 Dose: 325 mg Furosemide (Lasix -) 80 mg PO DAILY [facility] Heparin Sodium (Porcine) (Heparin -) 5,000 unit SQ BID [facility] Last Admin: 06/23/16 21:32 Dose: 5,000 unit Methimazole (Tapazole -) 5 mg PO DAILY [facility] Metoprolol Succinate (Toprol Xl -) 50 mg PO DAILY [facility] Prednisone (Deltasone -) 5 mg PO DAILY [facility] Ranitidine HCl (Zantac -) 150 mg PO BID [facility] Last Admin: 06/23/16 21:33 Dose: 150 mg - Objective Vital Signs: Vital Signs Temperature 98.0 F 06/24/16 06:00 Pulse Rate 77 06/24/16 06:00 Respiratory Rate 20 06/24/16 06:00 Blood Pressure 140/72 06/24/16 06:00 O2 Sat by Pulse Oximetry (%) 100 06/24/16 00:51 Constitutional: Yes: No Distress, Calm Eyes: No: Sclera Icterus HENT: No: Nasal Congestion Cardiovascular: Yes: Regular Rate and Rhythm, S1, S2, Other (PMI non diplaced). No: JVD, Gallop, Murmur Respiratory: Yes: CTA Bilaterally. No: Accessory Muscle Use, Rales, Wheezes Gastrointestinal: Yes: Normal Bowel Sounds, Soft. No: Tenderness Musculoskeletal: Yes: Other (No kyphosis) Extremities: No: Cold Edema: No Integumentary: No: Jaundice Neurological: Yes: Alert, Oriented (x3) Psychiatric: No: Agitated Labs: INR, PTT INR 1.11 (0.82-1.09) 06/23/16 10:42 - ....Imaging EKG: Other (tele: PSVT to 140s yest, none since approx 6-7pm (currently NSR)) Assessment/Plan Echo 03/22/16: Mod LV global systolic dysfunction. Nl RV. trace MR. (Per echo report, no significant difference in EF's of all echos) Echo 03/12/16: mild LV dilation. Moderately reduced LV fn. Severe apical wall HK. MIld LAE. Mod-sev MR. Mod TR. RVSP 30-40. 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) on prior review of tele strips in hospital (fact that it was aborted with adenosine in ER further supports AVN dependent circuit as substrate here) - in past, episodes of SVT seem to correlate with hypotension - during prior admits her SVT not responsive to escalating doses of BB, much better controlled with diltiazem - sent home on diltiazem 90 tid and toprol 100 bid last time--med confusion has led to currently on 1/3 the diltiazem dose per dtr hx--hence, we have a good explanation for SVT recurrence (and only metoprolol 50 qd) - no amio given suspicion of IPF by pulm previously, no Ic agents given depressed LVEF, no multaq given mult acute syst chf episodes - ? tachy-CMP previously, as below - resumed diltiazem 90 tid yesterday, and will resume prior metoprolol 100 bid today (per pt, bp's at HD appear to have been stable on this regimen previously) - for repeat echo: if EF normal, can continue this regimen; if EF remains down, need to stop diltiazem and pursue ablation Cardiomyopathy - progressive drop in EF over the course of the past 12 mo or so. - SVTs well controlled in hosp for 2 wks 03/20, EF not improved--was to have repeat echo in office with me after 6-12 wks of good tachy control, i do not recall her complying with this f/u but will check records - she previously declined invasive ischemia eval with cath--unable to complete stress test in hospital due to lack of IV access, then again when attempted in office shortly after discharge - currently appears euvolemic - repeat echo: if EF remains down, should have cath - cont dilt for now, pending EF reassessment, as above - volume management per HD/UF/renal. Mitral regurgitation, functional: -not severe on prior review of hosp echo images by dr gutierrez -vol mgmt primarily via HD/UF, per renal -resolved on most recent echo. chronic lung dz, ? ILDz: - resp failure during prior admit with pulm infiltrates of unclear etiology, suspected ILDz of ? etiology, clinically improved with empiric steroids trial, open lung bx deferred (bronch was unrevealing) - 12/[address] dilated IVC but only small effusions, with upper lobe infiltrates more c/w PNA than chf (dr devi review: recurrent consolidation in changing locations/distributions in comparison to prior CT, possibly c/w cryptogenic organizing pneumonia/BOOP)--needs outpt pulm f/u. HTN -cont same meds for now, monitor -? if bp dropping during HD (or just SVT phenomenon on DOA) ESRD, on HD: -s/p renal bx last time here c/w DM nephropathy -HD per renal h/o CVA - has been on aggrenox chronically
[2016-06-24 07:58] LABS: BASOPHIL 1.2 % (0-2.0); EOSINOPHIL 4.8 % (0-4.5); MCH 27.4 pg (25.7-33.7); MCHC 32.7 g/dl (32.0-36.0); MEAN CELL VOLUME 83.8 fl (80-96); MEAN PLT VOLUME 9.1 fl (7.5-11.1); NEUTROPHILS 59.3 % (42.8-82.8); PLATELET COUNT 179 K/MM3 (134-434); RDW 16.8 % (11.6-15.6); WHITE BLOOD COUNT 8.1 K/mm3 (4.0-10.0)
[2016-06-24 08:25] LABS: ALBUMIN 2.6 g/dl (3.4-5.0); CALCIUM 8.1 mg/dL (8.5-10.1)
[2016-06-24 08:36] LABS: BILIRUBIN,TOTAL 0.4 mg/dL (0.2-1.0); COCKROFT - GAULT 28.7555; CREATININE 2.9 mg/dL (0.55-1.02); FREE T4 1.02 ng/dl (0.76-1.46); THYROID STIMULATING HORMONE 2.65 uIU/ml (0.358-3.74); TOT PROT 5.9 g/dl (6.4-8.2); TROPONIN I 0.09 ng/ml (0.00-0.05)
[2016-06-24] MEDS ORDERED: PT OWN MED DRAWER 7, Y5N ONE (08:45)
[2016-06-24] MEDS: predniSONE 5 MG TABLET (UD) PO SCH (09:01)
[2016-06-24] MEDS: FUROSEMIDE 40 MG TABLET (FP) PO SCH (09:01)
[2016-06-24] MEDS: RANITIDINE HCL 150 MG TABLET (FP) PO SCH ×2 (09:01→20:59)
[2016-06-24] MEDS: ASPIRIN/DIPYRIDAMOLE 25 MG/200 MG CAPSULE (FP) PO SCH ×2 (09:01→21:00)
[2016-06-24] MEDS: METOPROLOL SUCCINATE 50 MG TAB.SR.24H (FP) PO SCH ×2 (09:01→20:59)
[2016-06-24] MEDS: METHIMAZOLE 5 MG TABLET (FP) PO SCH (09:01)
[2016-06-24] MEDS: HEPARIN NA (PORCINE) 5,000 UNITS/ML 1ML VIAL SQ SCH ×2 (09:01→21:00)
[2016-06-24] MEDS: FERROUS SO4 325 MG TABLET (FP) PO SCH ×2 (09:02→21:00)
[2016-06-24] MEDS ORDERED: METOPROLOL SUCCINATE 50 MG TAB.SR.24H (FP) PO SCH (10:00)
[2016-06-24] MEDS ORDERED: METOPROLOL SUCCINATE 100 MG TAB.SR.24H (FP) PO SCH (10:00)
--- NOTE | 2016-06-24 12:36 | EKG ---
Test Reason : Blood Pressure : / mmHG Vent. Rate : 035 BPM Atrial Rate : 034 BPM P-R Int : 000 ms QRS Dur : 116 ms QT Int : 398 ms P-R-T Axes : 000 005 054 degrees QTc Int : 303 ms Complete heart block JUNCTIONAL RHYTHM NONSPECIFIC T WAVE ABNORMALITY ABNORMAL ECG Confirmed by ROLO GIBSON MD ([id number]) on 06/24/2016 12:36:06 PM Referred By: Confirmed By:ROLO GIBSON MD
--- NOTE | 2016-06-24 12:37 | EKG ---
Test Reason : Blood Pressure : / mmHG Vent. Rate : 142 BPM Atrial Rate : 108 BPM P-R Int : 000 ms QRS Dur : 092 ms QT Int : 316 ms P-R-T Axes : 000 -16 104 degrees QTc Int : 486 ms SUPRAVENTRICULAR TACHYCARDIA NONSPECIFIC ST ABNORMALITY ABNORMAL ECG Confirmed by ROLO GIBSON MD ([id number]) on 06/24/2016 12:36:52 PM Referred By: Confirmed By:ROLO GIBSON MD
--- NOTE | 2016-06-24 14:45 | CONSULT ---
Consult Consult Specialty:: Nephrology Referred by:: Drs. Bailey/ Jackson Reason for Consultation:: Patient has ESRD - History of Present Illness Chief Complaint: Admitted with palpitation on dialysis. History of Present Illness: 66 y/o AA female admitted with acute symptomatic palpitation on dialysis. In the ER, the patient was noted to be in SVT, and Adenosine was administered whic broke the SVT. The patient's history is significant for ESRD, on HD TTS at [facility]. Also with h/o HTN, DM2, CVA, Hyperthyroidism, unusable AVF on the left arm, Permacath in the right IJ, CHF, h/o DVT. The patient denies having had any chest pain, shortness of breath; but had felt some heaviness while on dialysis. Now feels better. 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: CVA (transient speech loss and left hemiparesis in 2012) Cardio/Vascular: Yes: CHF (end diastolic), HTN, Hyperlipdemia Pulmonary: Yes: Asthma, Pneumonia, Other (ILD) Gastrointestinal: Yes: Constipation, GERD Hepatobiliary: Yes: Hepatitis C Renal/: Yes: Renal Inusuff, Renal Inusuff Heme/Onc: Yes: Anemia Musculoskeletal: Yes: Osteoarthritis Endocrine: Yes: Diabetes Mellitus (diabetic retinopathy ( treated ) and neuropathy), Hyperthyroidism (Graves Disease with thyroid nodule), Other ( THYROID DISEASE) - Past Surgical History Past Surgical History: Yes: Appendectomy, Colonoscopy, (C section x 4) , Hysterectomy - Alcohol/Substance Use Hx Alcohol Use: No History of Substance Use: reports: None - Smoking History Smoking history: Never smoked Have you smoked in the past 12 months: No Aproximately how many cigarettes per day: 0 - Social History Usual Living Arrangement: Alone ADL: Independent History of Recent Travel: No Home Medications - Allergies Allergies/Adverse Reactions: Allergies Allergy/AdvReac Type Severity Reaction Status Date / Time nut - unspecified [nut] Allergy Verified 06/23/16 09:54 - Home Medications Home Medications: Ambulatory Orders Aspirin/Dipyridamole [Aggrenox -] 1 combo PO BID 12/23/15 Methimazole 5 mg PO DAILY 12/23/15 Clonidine HCl 0.1 mg PO TID 06/23/16 Diltiazem [Cardizem -] 120 mg PO DAILY 06/23/16 Ferrous Sulfate [Feosol] 325 mg PO BID 06/23/16 Furosemide [Lasix] 80 mg PO DAILY 06/23/16 Metoprolol Succinate [Toprol XL -] 50 mg PO DAILY 06/23/16 Prednisone [Deltasone -] 5 mg PO DAILY 06/23/16 Ranitidine HCl 150 mg PO BID 06/23/16 Family Disease History - Family Disease History Family Disease History: Diabetes: Mother (alive 91), Brother Review of Systems - Review of Systems Constitutional: reports: Weakness Eyes: reports: No Symptoms HENT: reports: No Symptoms Neck: reports: No Symptoms Cardiovascular: reports: Palpitations. denies: Chest Pain, Shortness of Breath Respiratory: reports: No Symptoms Gastrointestinal: reports: No Symptoms Genitourinary: reports: No Symptoms Musculoskeletal: reports: No Symptoms Integumentary: reports: No Symptoms Neurological: reports: No Symptoms Endocrine: reports: [place] Hematology/Lymphatic: reports: No Symptoms Physical Exam Vital Signs: Vital Signs Temperature 98.5 F 06/24/16 10:00 Pulse Rate 78 06/24/16 10:00 Respiratory Rate 20 06/24/16 10:00 Blood Pressure 108/67 06/24/16 10:00 O2 Sat by Pulse Oximetry (%) 100 06/24/16 09:00 Constitutional: Yes: No Distress, Calm Eyes: Yes: WNL HENT: Yes: WNL Neck: Yes: Supple Cardiovascular: Yes: Pulse Irregular, S1, S2, S3 Respiratory: Yes: WNL, CTA Bilaterally Gastrointestinal: Yes: Normal Bowel Sounds, Soft Extremities: Yes: WNL Edema: No Neurological: Yes: Alert, Oriented Labs: CBC, BMP 06/24/16 06:10 06/24/16 06:10 Problem List - Problems (1) End stage renal disease on dialysis Code(s): N18.6 - END STAGE RENAL DISEASE Z99.2 - DEPENDENCE ON RENAL DIALYSIS (2) SVT (supraventricular tachycardia) Code(s): I47.1 - SUPRAVENTRICULAR TACHYCARDIA (3) CVA (cerebral vascular accident) Code(s): I63.9 - CEREBRAL INFARCTION, UNSPECIFIED (4) Diabetes Code(s): E11.9 - TYPE 2 DIABETES MELLITUS WITHOUT COMPLICATIONS Qualifiers: Diabetes mellitus type: type 2 Diabetes mellitus complication status: without complication (5) Diarrhea Code(s): R19.7 - DIARRHEA, UNSPECIFIED (6) Hypertension Code(s): I10 - ESSENTIAL (PRIMARY) HYPERTENSION (7) Pneumonia Code(s): J18.9 - PNEUMONIA, UNSPECIFIED ORGANISM Qualifiers: (8) Supraventricular arrhythmia Code(s): I49.9 - CARDIAC ARRHYTHMIA, UNSPECIFIED Assessment/Plan 66 y/o female with ESRD, on HD admitted with SVT. Broke with Adenosine. The patient has h/o hyperthyroidism. Will check Thyroid status. Has a Permacath in the right IJ for dialysis. The left arm AVF with godd bruit, but had not been usable. Will have Vascular evaluation. PLAN: Cardiology eval Vascular eval Thyroid profile. ? Dialyze tomorrow. Thank you. Will follow up with you. VEE BAILEY MD
--- NOTE | 2016-06-24 19:00 | PN ---
Progress Note, Physician History of Present Illness: Pt. w/o SOB, CP, palpitations, dizziness, N, V, abd. pain. - Current Medication List Current Medications: Active Medications Clonidine (Catapres -) 0.1 mg PO TID [facility] Last Admin: 06/24/16 13:44 Dose: 0.1 mg Diltiazem HCl 30 mg/ Diltiazem (HCl 60 mg) 90 mg PO TID [facility] Last Admin: 06/24/16 13:44 Dose: 90 mg Dipyridamole/Aspirin (Aggrenox -) 1 combo PO BID [facility] Last Admin: 06/24/16 09:01 Dose: 1 combo Ferrous Sulfate (Feosol -) 325 mg PO BID [facility] Last Admin: 06/24/16 09:02 Dose: Not Given Furosemide (Lasix -) 80 mg PO DAILY [facility] Last Admin: 06/24/16 09:01 Dose: 80 mg Heparin Sodium (Porcine) (Heparin -) 5,000 unit SQ BID [facility] Last Admin: 06/24/16 09:01 Dose: 5,000 unit Methimazole (Tapazole -) 5 mg PO DAILY [facility] Last Admin: 06/24/16 09:01 Dose: 5 mg Metoprolol Succinate (Toprol Xl -) 100 mg PO BID [facility] Last Admin: 06/24/16 09:01 Dose: 100 mg Prednisone (Deltasone -) 5 mg PO DAILY [facility] Last Admin: 06/24/16 09:01 Dose: 5 mg Ranitidine HCl (Zantac -) 150 mg PO BID [facility] Last Admin: 06/24/16 09:01 Dose: 150 mg - Objective Vital Signs: Vital Signs Temperature 98.6 F 06/24/16 18:35 Pulse Rate 60 06/24/16 18:35 Respiratory Rate 18 06/24/16 18:35 Blood Pressure 128/55 06/24/16 18:35 O2 Sat by Pulse Oximetry (%) 100 06/24/16 09:00 Constitutional: Yes: No Distress, Calm Cardiovascular: Yes: Regular Rate and Rhythm, S1, S2 Respiratory: No: Regular, CTA Bilaterally, SOB Gastrointestinal: Yes: Normal Bowel Sounds, Soft. No: Tenderness Edema: No Neurological: Yes: Alert, Oriented Labs: CBC, BMP 06/24/16 06:10 06/24/16 06:10 INR, PTT INR 1.11 (0.82-1.09) 06/23/16 10:42 Problem List - Problems (1) SVT (supraventricular tachycardia) Assessment/Plan: Pt.'s medications were adjusted, now HR is controlled. Case was discussed with Dr. Arriaza. Code(s): I47.1 - SUPRAVENTRICULAR TACHYCARDIA (2) End stage renal disease on dialysis Assessment/Plan: Pt had HD yesterday, tolerated it well; next HD on Saturday. Code(s): N18.6 - END STAGE RENAL DISEASE Z99.2 - DEPENDENCE ON RENAL DIALYSIS (3) CVA (cerebral vascular accident) Assessment/Plan: cont Aggrenox Code(s): I63.9 - CEREBRAL INFARCTION, UNSPECIFIED (4) Diabetes Code(s): E11.9 - TYPE 2 DIABETES MELLITUS WITHOUT COMPLICATIONS Qualifiers: Diabetes mellitus type: type 2 Diabetes mellitus complication status: without complication Assessment/Plan cont. to monitor on Telemetry.
[2016-06-24 21:14] LABS: URINE APPEARANCE CLOUDY; URINE BILIRUBIN NEGATIVE (NEGATIVE); URINE BLOOD NEGATIVE (NEGATIVE); URINE COLOR YELLOW; URINE GLUCOSE (UA) NEGATIVE (NEGATIVE); URINE KETONE NEGATIVE (NEGATIVE); URINE NITRITE NEGATIVE (NEGATIVE); URINE UROBILINOGEN NEGATIVE E.U./dl (0.2-1.0)
[2016-06-24 21:33] LABS: URINE LEUK ESTERASE TRACE (NEGATIVE); URINE PROTEIN 1+ (NEGATIVE)
[2016-06-24 21:34] LABS: URINE BACTERIA RARE /hpf (NONE SEEN); URINE HYALINE CAST 13 /lpf; URINE MUCUS RARE; URINE RBC <1 /hpf (0-3); URINE WBC 19 /hpf (3-5)
[2016-06-25] MEDS ORDERED: dilTIAZem HCL 60 MG TABLET (FP) ONE ×2 (05:26→15:03)
[2016-06-25] MEDS ORDERED: dilTIAZem HCL 30 MG TABLET (FP) ONE ×2 (05:26→15:03)
[2016-06-25] MEDS: cloNIDine HCL 0.1 MG TABLET PO SCH ×2 (05:50→15:16)
[2016-06-25] MEDS: DILTIAZEM 30 MG, DILTIAZEM 60 MG PO SCH ×2 (05:50→15:16)
--- NOTE | 2016-06-25 09:45 | PN ---
Progress Note (short form) - Note Progress Note: Renal Follow up for ESRD on HD Pt seen and examined at the bedside no acute complaints denies any palpitations or chest pain no sob wants to be discharged today Vital Signs Temperature 98 F 06/25/16 05:59 Pulse Rate 62 06/25/16 05:59 Respiratory Rate 18 06/25/16 05:59 Blood Pressure 117/54 06/25/16 05:59 O2 Sat by Pulse Oximetry (%) 98 06/24/16 21:00 Intake & Output 06/22/16 06/23/16 06/24/16 06/25/16 23:59 23:59 23:59 23:59 Intake Total 300 500 Balance 300 500 Weight 199 lb 210 lb 8 oz 212 lb Gen: NAD CVS: RRR, No M/R Lungs: CTA, no rales Abd: soft NT/ND Ext: No edema CBC, BMP 06/24/16 06:10 06/24/16 06:10 Current Medications Clonidine (Catapres -) 0.1 mg PO TID [facility] Last Admin: 06/25/16 05:50 Dose: 0.1 mg Diltiazem HCl 30 mg/ Diltiazem (HCl 60 mg) 90 mg PO TID [facility] Last Admin: 06/25/16 05:50 Dose: 90 mg Dipyridamole/Aspirin (Aggrenox -) 1 combo PO BID [facility] Last Admin: 06/24/16 21:00 Dose: 1 combo Ferrous Sulfate (Feosol -) 325 mg PO BID [facility] Last Admin: 06/24/16 21:00 Dose: Not Given Furosemide (Lasix -) 80 mg PO DAILY [facility] Last Admin: 06/24/16 09:01 Dose: 80 mg Heparin Sodium (Porcine) (Heparin -) 5,000 unit SQ BID [facility] Last Admin: 06/24/16 21:00 Dose: 5,000 unit Methimazole (Tapazole -) 5 mg PO DAILY [facility] Last Admin: 06/24/16 09:01 Dose: 5 mg Metoprolol Succinate (Toprol Xl -) 100 mg PO BID [facility] Last Admin: 06/24/16 20:59 Dose: 100 mg Prednisone (Deltasone -) 5 mg PO DAILY [facility] Last Admin: 06/24/16 09:01 Dose: 5 mg Ranitidine HCl (Zantac -) 150 mg PO BID [facility] Last Admin: 06/24/16 20:59 Dose: 150 mg A/P 66 year old woman with PMhx of ESRD on HD (TTS), Hypertension, DM Type 2, CVA, Hx of DVT, Hyperthyrodism who presented to the ED s/p palpiations during dialysis and noted to have SVT. #ESRD on HD No acute indication for dialysis today no labs drawn today but pt does have residual reanl function and no history of hyperkalemia (usually runs low) continue Lasix 80mg Daily Will consult Dr. Nick to Eval AVF (was supposed to be sen as outpatient today) #SVT Cardiology following #Anemia No indication for transfusion continue REYNA with regular HD #Hypertension BP at goal continue current meds Jon Paz DO
--- NOTE | 2016-06-25 10:49 | PN ---
Progress Note, Physician Chief Complaint: PSVT History of Present Illness: no more palpitations no sob, orthopnea no cp no leg swelling - Current Medication List Current Medications: Active Medications Clonidine (Catapres -) 0.1 mg PO TID REPLACED BY [facility] Last Admin: 06/25/16 05:50 Dose: 0.1 mg Diltiazem HCl 30 mg/ Diltiazem (HCl 60 mg) 90 mg PO TID REPLACED BY [facility] Last Admin: 06/25/16 05:50 Dose: 90 mg Dipyridamole/Aspirin (Aggrenox -) 1 combo PO BID REPLACED BY [facility] Last Admin: 06/24/16 21:00 Dose: 1 combo Ferrous Sulfate (Feosol -) 325 mg PO BID REPLACED BY [facility] Last Admin: 06/24/16 21:00 Dose: Not Given Furosemide (Lasix -) 80 mg PO DAILY REPLACED BY [facility] Last Admin: 06/24/16 09:01 Dose: 80 mg Methimazole (Tapazole -) 5 mg PO DAILY REPLACED BY [facility] Last Admin: 06/24/16 09:01 Dose: 5 mg Metoprolol Succinate (Toprol Xl -) 100 mg PO BID REPLACED BY [facility] Last Admin: 06/24/16 20:59 Dose: 100 mg Prednisone (Deltasone -) 5 mg PO DAILY REPLACED BY [facility] Last Admin: 06/24/16 09:01 Dose: 5 mg Ranitidine HCl (Zantac -) 150 mg PO BID REPLACED BY [facility] Last Admin: 06/24/16 20:59 Dose: 150 mg - Objective Vital Signs: Vital Signs Temperature 98 F 06/25/16 05:59 Pulse Rate 62 06/25/16 05:59 Respiratory Rate 18 06/25/16 05:59 Blood Pressure 117/54 06/25/16 05:59 O2 Sat by Pulse Oximetry (%) 98 06/24/16 21:00 Constitutional: Yes: No Distress, Calm Eyes: No: Sclera Icterus HENT: No: Nasal Congestion Cardiovascular: Yes: Regular Rate and Rhythm, S1, S2, Other (PMI non diplaced). No: JVD, Gallop, Murmur Respiratory: Yes: CTA Bilaterally. No: Accessory Muscle Use, Rales, Wheezes Gastrointestinal: Yes: Normal Bowel Sounds, Soft. No: Tenderness Musculoskeletal: Yes: Other (No kyphosis) Extremities: No: Cold Edema: No Integumentary: No: Jaundice Neurological: Yes: Alert, Oriented (x3) Psychiatric: No: Agitated Labs: CBC, BMP 06/24/16 06:10 06/24/16 06:10 INR, PTT INR 1.11 (0.82-1.09) 06/23/16 10:42 - ....Imaging EKG: Other (tele: NSR, no SVT, no path bradys) Assessment/Plan Echo 03/22/16: Mod LV global systolic dysfunction. Nl RV. trace MR. (Per echo report, no significant difference in EF's of all echos) Echo 03/12/16: mild LV dilation. Moderately reduced LV fn. Severe apical wall HK. MIld LAE. Mod-sev MR. Mod TR. RVSP 30-40. 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) on prior review of tele strips in hospital (fact that it was aborted with adenosine in ER further supports AVN dependent circuit as substrate here) - in past, episodes of SVT seem to correlate with hypotension - during prior admits her SVT not responsive to escalating doses of BB, much better controlled with diltiazem - sent home on diltiazem 90 tid and toprol 100 bid last time--med confusion has led to currently on 1/3 the diltiazem dose per dtr hx--hence, we have a good explanation for SVT recurrence (and only metoprolol 50 qd) - no amio given suspicion of IPF by pulm previously, no Ic agents given depressed LVEF, no multaq given mult acute syst chf episodes - ? tachy-CMP previously, as below - resumed prior regimen here: diltiazem 90 tid and metoprolol 100 bid--tele remains without SVT - for repeat echo today: if EF normal, can continue this regimen; if EF remains down, need to stop diltiazem and pursue ablation--these next steps in management , if they are necessary, can be pursued as outpt (pt promises will f/u with me, says she thought she was not supposed to see me again in office last time) Cardiomyopathy - progressive drop in EF over the course of the past 12 mo or so. - SVTs well controlled in hosp for 2 wks 03/20, EF not improved--was to have repeat echo in office with me after 6-12 wks of good tachy control, i do not recall her complying with this f/u but will check records - she previously declined invasive ischemia eval with cath--unable to complete stress test in hospital due to lack of IV access, then again when attempted in office shortly after discharge - currently appears euvolemic - repeat echo: if EF remains down, should have cath - cont dilt for now, pending EF reassessment, as above - volume management per HD/UF/renal (incl po lasix) Mitral regurgitation, functional: -not severe on prior review of hosp echo images by dr gutierrez -vol mgmt primarily via HD/UF, per renal -resolved on most recent echo. chronic lung dz, ? ILDz: - resp failure during prior admit with pulm infiltrates of unclear etiology, suspected ILDz of ? etiology, clinically improved with empiric steroids trial, open lung bx deferred (bronch was unrevealing) - 12/[address] dilated IVC but only small effusions, with upper lobe infiltrates more c/w PNA than chf (dr devi review: recurrent consolidation in changing locations/distributions in comparison to prior CT, possibly c/w cryptogenic organizing pneumonia/BOOP)--needs outpt pulm f/u. HTN -cont same meds for now, monitor -? if bp dropping during HD (or just SVT phenomenon on DOA) ESRD, on HD: -s/p renal bx last time here c/w DM nephropathy -HD per renal h/o CVA - has been on aggrenox chronically
[2016-06-25] MEDS ORDERED: PT OWN MED DRAWER 7, Y5N ONE (11:13)
[2016-06-25] MEDS: FUROSEMIDE 40 MG TABLET (FP) PO SCH (11:19)
[2016-06-25] MEDS: FERROUS SO4 325 MG TABLET (FP) PO SCH (11:19)
[2016-06-25] MEDS: predniSONE 5 MG TABLET (UD) PO SCH (11:19)
[2016-06-25] MEDS: ASPIRIN/DIPYRIDAMOLE 25 MG/200 MG CAPSULE (FP) PO SCH (11:19)
[2016-06-25] MEDS: METOPROLOL SUCCINATE 50 MG TAB.SR.24H (FP) PO SCH (11:20)
[2016-06-25] MEDS: METHIMAZOLE 5 MG TABLET (FP) PO SCH (11:20)
[2016-06-25] MEDS: RANITIDINE HCL 150 MG TABLET (FP) PO SCH (11:20)
--- NOTE | 2016-06-25 12:16 | EKG ---
Test Reason : Blood Pressure : / mmHG Vent. Rate : 105 BPM Atrial Rate : 105 BPM P-R Int : 000 ms QRS Dur : 086 ms QT Int : 358 ms P-R-T Axes : 000 -21 089 degrees QTc Int : 473 ms SINUS TACHYCARDIA WITH 1ST DEGREE A-V BLOCK NONSPECIFIC T WAVE ABNORMALITY WHEN COMPARED WITH ECG OF 23-JUN-2016 10:39, SINUS RHYTHM HAS REPLACED COMPLETE HEART BLOCK VENT. RATE HAS INCREASED BY 70 BPM CLINICAL CORRELATION IS RECOMMENDED Confirmed by KAITLYNN CHAIREZ MD ([id number]) on 06/25/2016 12:16:17 PM Referred By: Confirmed By:KAITLYNN CHAIREZ MD
--- NOTE | 2016-06-25 12:36 | PN ---
Progress Note (short form) - Note Progress Note: surgery pt seen and examined. full consult dictated. 66f, morbidly obese, ESRD, admitted for hypotension and tachycardia after dialysis. noted to have thickening of right lateral abd wall muscular since march on ct and now thickening of left side as well. Pt denies abd pain or symptoms. asked to r/o hematoma. on exam abd is soft, obese, with no obvious masses but exam limited by obesity. Plan- likely hematoma from trauma from pannus/gravity with reduced platelet fxn in renal failure and likely heparin during dialysis. pt is asymtomatic. No need for intervention. Since it is bilateral it is unlikely a neoplasm.
--- NOTE | 2016-06-25 13:48 | CONS ---
DATE OF CONSULTATION: 06/25/2016 REASON FOR CONSULTATION: Rule out abdominal wall hematoma. REQUESTING PHYSICIAN: Rebecca Villarreal MD BRIEF HISTORY: This is a 66-year-old female obese with a history of renal failure who back in March was noted to have thickening of the lateral abdominal wall musculature on CAT scan. She is admitted to [facility] now because of tachycardia and hypotension after dialysis. She underwent a CT abdomen and chest, which showed that the thickening on the right side was still present, and now there was some thickening on the left side as well. The radiologist commented that he could not rule out a hematoma, and a request was made for surgical evaluation to rule out hematoma. The patient denies abdominal symptoms. Although it is stated in the chart that she had nausea, vomiting, and abdominal pain, she denies that. She does not take any current blood thinners; however, she does get dialysis, which is known to inhibit platelet function, and I am sure she received heparin during dialysis sessions. PAST MEDICAL HISTORY: Significant for anemia, hypertension, stroke, end-stage renal disease, diabetes, DVT, congestive heart failure, hyperlipidemia, asthma, hepatitis C. PAST SURGICAL HISTORY: Significant for a left AV fistula, PermCath, appendectomy, and a hysterectomy with section. SOCIAL HISTORY: Negative for alcohol. Negative for tobacco. FAMILY HISTORY: Negative for malignancy in the immediate family. ALLERGIES: NUTS. HOME MEDICATIONS: Include Cardizem, Lasix, prednisone, clonidine, metoprolol, and Zantac. REVIEW OF SYSTEMS: General: Denies fatigue or malaise. Cardiac: Denies chest pain or palpitations. Respiratory: Admits to some shortness of breath. Gastrointestinal: No nausea or vomiting or abdominal pain. Genitourinary: Denies dysuria. Musculoskeletal: Admits to arthritic pain. States she can walk with a walker. PHYSICAL EXAMINATION: General: This is an obese 66-year-old female in no distress. She is currently lying in bed. Vital Signs: She is afebrile. Her vital signs are stable. HEENT: Her head is normocephalic. Sclerae anicteric. Neck: Supple. Chest: Clear. Abdomen: Soft and nontender. There are no appreciable masses; however, her exam is limited by obesity. Extremities: Edema. LABORATORY: On review of her laboratory, hemoglobin 10.1. Her chemistries are unremarkable with the exception of abnormal renal function. ASSESSMENT: This is a 66-year-old female who is obese with bilateral thickening of the lateral abdominal wall musculature. I suspect that this is secondary to trauma from her large pannus and gravity, and likely in the setting of platelet dysfunction with multiple small hematomas. This is unlikely a neoplasm as it is bilateral and also unlikely a myositis. At this point, she is asymptomatic. No further intervention is required. I will be available on an as needed basis. DO LIAM LOVE/[id number]
--- NOTE | 2016-06-25 14:06 | PN ---
Progress Note (short form) - Note Progress Note: Vascular Surgery Pt seen and examined. Left avf with good bruit and thrill. They were able to cannulate with one needle. Second needle was a problem. Pt can get outpt venogram to balloon vein to bigger size. Pt will come to office next saturday Chris Nick dO
[2016-06-25 15:21] VITALS: BP 106/50; PULSE 88; TEMP 98.1
--- NOTE | 2016-06-25 15:51 | DS ---
Physical Examination Vital Signs: Vital Signs Temperature 98.1 F 06/25/16 15:20 Pulse Rate 88 06/25/16 15:20 Respiratory Rate 18 06/25/16 15:20 Blood Pressure 106/50 06/25/16 15:20 O2 Sat by Pulse Oximetry (%) 98 06/25/16 09:00 Findings/Remarks: OOB to chair dressed ready to go home seen by cardio, renal and meds adjusted seen by surgery for possible intratecal hematoma, pt is asymptomatic; no intervention advised seen by dr Thomas, will f/u with him in clinic for L AVF and R permacath daughter and grand daughter at [facility], will take pt home does not have and does not want home O2 d/w pt all meds, reviewed and her and her family, as well as f/u outpt scripts done d/w staff; T time 45 min Constitutional: Yes: No Distress, Calm Eyes: Yes: Conjunctiva Clear HENT: Yes: Atraumatic Neck: Yes: Supple Cardiovascular: Yes: Regular Rate and Rhythm Respiratory: Yes: CTA Bilaterally Gastrointestinal: Yes: Soft. No: Distention, Tenderness Renal/: No: CVA Tenderness - Left, CVA Tenderness - Right, Hematuria Musculoskeletal: No: Joint Stiffness, Joint Swelling Extremities: No: Cold, Cool, Cyanosis Edema: No Peripheral Pulses WNL: Yes Integumentary: No: Rash, Venous Stasis Changes Neurological: Yes: WNL, Alert, Oriented ...Motor Strength: WNL Psychiatric: Yes: WNL, Alert, Oriented. No: Agitated, Suicidal Ideation Labs: CBC, BMP 06/24/16 06:10 06/24/16 06:10 Discharge Summary Reason For Visit: SVT,END STAGE RENAL DISEASE ON DIALYSIS Current Active Problems End stage renal disease on dialysis (Acute) SVT (supraventricular tachycardia) (Acute) Supraventricular arrhythmia (Acute) Procedures: Principal: admitted with recurrent uncontrolled SVT; monitored in telemetry Other Procedures: surgery eval dr Arriaza; adjusted meds. HD per renal dr Paz. also seen by vascular sx dr Thomas and general sx dr steele [facility] Course: improved with increased doses of Cardizem and Toprol Echo done; DC home cleared by cardiology, needs close f/u outpt scripts done Condition: Improved - Instructions Diet, Activity, Other Instructions: f/u PCP cardiology in 1-2 weeks HD per renal endocrine f/u RTER if recurrent or worse c/o vascular sx dr thomas f/u falls PFX scripts done d/w pt and staff and family at bedside Referrals: Rebecca Villarreal [Primary Care Provider] - Jon Paz MD [Staff Physician] - Garfield Arriaza MD [Staff Physician] - Katherine Natarajan MD [Staff Physician] - Chris Thomas MD [Staff Physician] - Disposition: VNS/HOME HEALTH CARE - Home Medications Comprehensive Discharge Medication List: Ambulatory Orders Aspirin/Dipyridamole [Aggrenox -] 1 combo PO BID 12/23/15 Methimazole 5 mg PO DAILY 12/23/15 Clonidine HCl 0.1 mg PO TID 06/23/16 Ferrous Sulfate [Feosol] 325 mg PO BID 06/23/16 Furosemide [Lasix] 80 mg PO DAILY 06/23/16 Ranitidine HCl 150 mg PO BID 06/23/16 Diltiazem [Cardizem -] 30 mg PO TID #270 tablet 06/25/16 Diltiazem [Cardizem -] 60 mg PO TID #270 tablet 06/25/16 Metoprolol Succinate [Toprol XL -] 100 mg PO BID #180 tab 06/25/16
== END 2016-06-25 17:05 | disposition home health service (06) | DRG 308 ==
LOC: JER 09:43 → JERBED 15:54 → UNDOADMIN 15:57 → JERBED 15:57 → J4S 17:50
PROVIDERS: ADMIT Internal Medicine; ATTEND Internal Medicine
DX: I47.1 Supraventricular tachycardia (principal); N18.6 End stage renal disease; I13.2 Hypertensive heart and chronic kidney disease with heart failure and with stage 5 chronic kidney disease, or end stage renal disease; I50.22 Chronic systolic (congestive) heart failure; I42.9 Cardiomyopathy, unspecified; E11.22 Type 2 diabetes mellitus with diabetic chronic kidney disease; Z99.2 Dependence on renal dialysis; Z86.718 Personal history of other venous thrombosis and embolism; Z86.73 Personal history of transient ischemic attack (TIA), and cerebral infarction without residual deficits; M79.81 Nontraumatic hematoma of soft tissue; D64.9 Anemia, unspecified; I34.0 Nonrheumatic mitral (valve) insufficiency; E11.21 Type 2 diabetes mellitus with diabetic nephropathy; E05.90 Thyrotoxicosis, unspecified without thyrotoxic crisis or storm; E66.01 Morbid (severe) obesity due to excess calories; I95.9 Hypotension, unspecified; Z68.34 Body mass index [BMI] 34.0-34.9, adult
CPT/HCPCS: 36415; 71010-TC; 71250-TC; 74176-TC; 80053; 81003; 81015; 82550; 83735; 84100; 84439; 84443; 84481; 84484; 85025; 85610; 86850; 86870; 86900; 86901; 86902; 87086; 93005; 93010; 93306-TC; 99284-25; J1644; Q9967

== ENCOUNTER 2016-08-29 09:18 | Day surgery (SDC) | payer OTHER ==
[2016-07-10 12:31] VITALS: BMI 32.8
[2016-08-29] MEDS ORDERED: MIDAZOLAM HCL 2 MG/2 ML SINGLE DOSE VIAL ONE ×2 (11:16)
[2016-08-29] MEDS ORDERED: PROPOFOL 20 ML ONE ×3 (11:18)
[2016-08-29] MEDS ORDERED: ceFAZolin SODIUM 1 GM VIAL ONE (11:30)
[2016-08-29] MEDS ORDERED: SODIUM CHLORIDE 0.9% P/F 10 ML VIAL IJ ONE ×2 (11:30→11:41)
[2016-08-29] MEDS ORDERED: ceFAZolin SODIUM 1 GM VIAL IVPB ONE (11:44)
--- NOTE | 2016-08-29 12:03 | HP ---
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: CVA (transient speech loss and left hemiparesis in 2013) Cardiovascular: Yes: CHF (end diastolic), HTN, Hyperlipdemia Pulmonary: Yes: Asthma, Pneumonia, Other (ILD) Gastrointestinal: Yes: Constipation, GERD Hepatobiliary: Yes: Hepatitis C Renal/: Yes: Renal Inusuff, Renal Inusuff Heme/Onc: Yes: Anemia Musculoskeletal: Yes: Osteoarthritis Endocrine: Yes: Diabetes Mellitus (diabetic retinopathy ( treated ) and neuropathy), Hyperthyroidism (Graves Disease with thyroid nodule), Other ( THYROID DISEASE) - Past Surgical History Past Surgical History: Yes: Appendectomy, Colonoscopy, (C section x 4) , Hysterectomy - Smoking History Smoking history: Never smoked Have you smoked in the past 12 months: No Aproximately how many cigarettes per day: 0 - Alcohol/Substance Use Hx Alcohol Use: No History of Substance Use: reports: None - Social History ADL: Independent History of Recent Travel: No Home Medications - Allergies Allergies/Adverse Reactions: Allergies Allergy/AdvReac Type Severity Reaction Status Date / Time No Known Drug Allergies Allergy Verified 07/10/16 12:50 nut - unspecified [nut] Allergy "HIVES,THROAT Verified 07/10/16 12:50 CLOSES" - Home Medications Home Medications: Ambulatory Orders Clonidine HCl 0.1 mg PO TID 06/23/16 Furosemide [Lasix] 80 mg PO DAILY 06/23/16 Aspirin/Dipyridamole [Aggrenox -] 1 combo PO BID 07/10/16 Diltiazem [Cardizem -] 90 mg PO Q8H 07/10/16 Escitalopram Oxalate [Lexapro -] 5 mg PO DAILY 07/10/16 Metoprolol Succinate [Toprol XL -] 100 mg PO DAILY 07/10/16 Family Disease History - Family Disease History Family Disease History: Diabetes: Mother (alive 91), Brother Physical Examination Vital Signs: Vital Signs Temperature 98.6 F 08/29/16 10:20 Pulse Rate 50 L 08/29/16 10:20 Respiratory Rate 18 08/29/16 10:20 Blood Pressure 98/51 08/29/16 10:20 O2 Sat by Pulse Oximetry (%) 97 08/29/16 10:20 Constitutional: Yes: Well Nourished Eyes: Yes: WNL HENT: Yes: WNL Neck: Yes: WNL Cardiovascular: Yes: WNL Respiratory: Yes: WNL Gastrointestinal: Yes: WNL Extremities: Yes: WNL Edema: No Labs: CBC, BMP 08/29/16 09:30 Assessment/Plan Immature left avf 1. venogram, venoplasty for balloon maturation
[2016-08-29] MEDS ORDERED: ONDANSETRON 4 MG/2 ML VIAL IVPUSH PRN (12:08)
--- NOTE | 2016-08-29 13:40 | OP ---
DATE OF OPERATION: 08/29/2016 PREOPERATIVE DIAGNOSIS: Immature left arteriovenous fistula. POSTOPERATIVE DIAGNOSIS: Immature left arteriovenous fistula. PROCEDURE PERFORMED: Venogram, venoplasty left arteriovenous fistula, balloon maturation. SURGEON: Chris Márquez DO ANESTHESIA: Fractional. BLOOD LOSS: 10 mL. INDICATIONS: The patient is a 62-year-old female who has a left AV fistula that was created 2 months ago. She was in and out of the hospital for cardiac issues. The fistula is only about 5 to 6 mm on a preoperative ultrasound and needs to be more mature in order for them for cannulate for dialysis access. The patient came in to undergo surgery. The patient was consented for the procedure, understanding all risks, benefits and alternatives, and then taken to the operating room. DESCRIPTION OF PROCEDURE: Once in the operating room, the patient was laid on the operating table in the supine manner. The left arm was prepped and draped in a sterile surgical manner. Under ultrasound guidance, we were able to visualize the proximal AV fistula above the anastomosis, and 10 mL of lidocaine 1% was injected there. We then took our micropuncture needle and punctured the AV fistula. A micropuncture wire was inserted. A micropuncture sheath was inserted and an additional short 6-Japanese sheath was inserted. IV heparin 3000 units was administered to the patient. We then shot our venogram via a hand injection, showing that the fistula was patent and there was a mild to moderate stenosis of about 60% at the cephalic arch. At this point, we placed a 0.035 floppy guidewire into the central vein. We then used an 8 x 8 [place] balloon and performed venoplasy from the central veins all the way down to our sheath, so the whole entirety of the cephalic vein. Completion venogram showed that the fistula was now patent. There were no areas of stenosis. At this point, using 4-0 Biosyn, a [id number] stitch was placed and the sheath was pulled. The area was wet and dried, and Dermabond was placed. The patient tolerated the procedure with no complication. The patient was transferred to the PACU in stable condition. CHRIS MÁRQUEZ DO NP/[id number]
[2016-08-29 14:40] VITALS: BP 122/60; PULSE 50; TEMP 97.6
== END 2016-08-29 14:00 | disposition home or self-care (01) ==
LOC: JASU-SURG 09:18
PROVIDERS: ATTEND Surgery Vascular Surgery
PROC: 057F3ZZ Dilation of Left Cephalic Vein, Percutaneous Approach (ICD-10-PCS; principal; 2016-08-29 11:00)
DX: T82.858A Stenosis of other vascular prosthetic devices, implants and grafts, initial encounter (principal); I12.0 Hypertensive chronic kidney disease with stage 5 chronic kidney disease or end stage renal disease; E11.9 Type 2 diabetes mellitus without complications; E05.00 Thyrotoxicosis with diffuse goiter without thyrotoxic crisis or storm
CPT/HCPCS: 36415; 76000-TC; 84132; 94760

== ENCOUNTER 2016-11-14 08:20 | Day surgery (SDC) | payer OTHER ==
[2016-11-13 15:50] VITALS: BMI 34.4
[~2016-11-14 08:20] MED LIST: ceFAZolin SODIUM 1 GM VIAL IVPB ONE
[2016-11-14] MEDS ORDERED: ceFAZolin SODIUM 1 GM VIAL ONE (10:27)
[2016-11-14] MEDS ORDERED: MIDAZOLAM HCL 2 MG/2 ML SINGLE DOSE VIAL ONE (10:27)
[2016-11-14] MEDS ORDERED: HEPARIN NA (PORCINE) 5,000 UNITS/ML 1ML VIAL ONE (10:27)
[2016-11-14] MEDS ORDERED: PROPOFOL 20 ML ONE (10:27)
[2016-11-14] MEDS ORDERED: ceFAZolin SODIUM 1 GM VIAL IVPB ONE (10:41)
--- NOTE | 2016-11-14 11:34 | OP ---
Operative Note - Note: Operative Date: 11/14/16 Pre-Operative Diagnosis: stenosis left avf Operation: venogram, DCB venoplasty of left avf Post-Operative Diagnosis: Same as Pre-op Surgeon: Chris Nick Anesthesia: Fractional Estimated Blood Loss (mls): 5 Operative Report Dictated: Yes
[2016-11-14] MEDS ORDERED: ONDANSETRON 4 MG/2 ML VIAL IVPUSH PRN (11:39)
[2016-11-14] MEDS ORDERED: ACETAMINOPHEN 325 MG TABLET (FP) PO PRN (11:39)
--- NOTE | 2016-11-14 11:39 | HP ---
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: CVA (transient speech loss and left hemiparesis in 2013) Cardiovascular: Yes: CHF (end diastolic), HTN, Hyperlipdemia Pulmonary: Yes: Asthma, Pneumonia, Other (ILD) Gastrointestinal: Yes: Constipation, GERD Hepatobiliary: Yes: Hepatitis C Renal/: Yes: Renal Inusuff, Renal Inusuff Heme/Onc: Yes: Anemia Musculoskeletal: Yes: Osteoarthritis Endocrine: Yes: Diabetes Mellitus (diabetic retinopathy ( treated ) and neuropathy), Hyperthyroidism (Graves Disease with thyroid nodule), Other ( THYROID DISEASE) - Past Surgical History Past Surgical History: Yes: Appendectomy, Colonoscopy, (C section x 4) , Hysterectomy - Smoking History Smoking history: Never smoked Have you smoked in the past 12 months: No Aproximately how many cigarettes per day: 0 - Alcohol/Substance Use Hx Alcohol Use: No History of Substance Use: reports: None - Social History ADL: Independent History of Recent Travel: No Home Medications - Allergies Allergies/Adverse Reactions: Allergies Allergy/AdvReac Type Severity Reaction Status Date / Time No Known Drug Allergies Allergy Verified 11/13/16 15:51 nut - unspecified [nut] Allergy "HIVES,THROAT Verified 11/13/16 15:51 CLOSES" Fish Containing Products AdvReac Swelling Verified 11/13/16 15:51 - Home Medications Home Medications: Ambulatory Orders Clonidine HCl 0.1 mg PO TID 06/23/16 Furosemide [Lasix] 80 mg PO DAILY 06/23/16 Aspirin/Dipyridamole [Aggrenox -] 1 combo PO BID 07/10/16 Diltiazem [Cardizem -] 90 mg PO DAILY 07/10/16 Escitalopram Oxalate [Lexapro -] 5 mg PO DAILY 07/10/16 Metoprolol Succinate [Toprol XL -] 100 mg PO DAILY 07/10/16 Methimazole [Tapazole] 5 mg PO DAILY 11/13/16 Family Disease History - Family Disease History Family Disease History: Diabetes: Mother (alive 91), Brother Physical Examination Vital Signs: Vital Signs Temperature 98.5 F 11/14/16 08:53 Pulse Rate 80 11/14/16 08:53 Respiratory Rate 20 11/14/16 08:53 Blood Pressure 139/72 11/14/16 08:53 O2 Sat by Pulse Oximetry (%) 100 11/14/16 08:56 Constitutional: Yes: Well Nourished Eyes: Yes: WNL HENT: Yes: WNL Neck: Yes: WNL Cardiovascular: Yes: WNL Respiratory: Yes: WNL Gastrointestinal: Yes: WNL Musculoskeletal: Yes: WNL Extremities: Yes: WNL Edema: No Peripheral Pulses WNL: Yes Integumentary: Yes: WNL Neurological: Yes: WNL ...Motor Strength: WNL Labs: CBC, BMP 11/14/16 08:33 Assessment/Plan Stenosis left avf 1. For venogram today
[2016-11-14] MEDS ORDERED: SODIUM CHLORIDE 1,000 ML IV SCH (11:45)
[2016-11-14 12:49] VITALS: TEMP 98
[2016-11-14 14:39] VITALS: BP 148/86; PULSE 90
--- NOTE | 2016-11-15 09:16 | OP ---
DATE OF OPERATION: 11/14/2016 PREOPERATIVE DIAGNOSIS: Stenosis left arteriovenous fistula. POSTOPERATIVE DIAGNOSIS: Stenosis left arteriovenous fistula. PROCEDURE PERFORMED: Venogram, drug-coated venoplasty of left arteriovenous fistula. SURGEON: Chris Márquez DO ANESTHESIA: Fractional. BLOOD LOSS: 5 mL. INDICATIONS: The patient is a 66-year-old female who comes from the dialysis unit with a difficult cannulation of her left AV fistula. On physical exam, the fistula is pulsatile. It was decided that she would need to come in as an ambulatory patient for a venogram. DESCRIPTION OF PROCEDURE: The patient was consented for the procedure, understanding all risks, benefits and alternatives, and then taken to the operating room. Once in the operating room, the patient was laid on the operating table in the supine manner. The left arm was prepped and draped in a sterile surgical manner. We then went to the distal AV fistula in the upper arm, and under ultrasound guidance, we were able to visualize the AV fistula, and 5 mL of lidocaine 1% was injected over the vein. We then took our Micropuncture needle and punctured the vein. Micropuncture wire was inserted and an additional short 6-Gibraltarian sheath was inserted. IV heparin, 3000 units, was administered to the patient. We then went ahead and did a venogram by hand injection through the sheath, showing that the proximal AV fistula above our anastomosis had severe stenosis of about 80% to 90%. At this point, we placed a 0.035 floppy guidewire across the anastomosis. We then went ahead and used a 7 x 6 drug-coated Bard Lutonix drug-coated balloon, and we performed venoplasty of the area, leaving the balloon up for 2 minutes. Thereafter we used an 8 x 8 Durata balloon and performed venoplasty of the entire AV fistula. Completion venogram showed that the fistula was patent. There was a good thrill in our AV fistula. We then used 4-0 Biosyn and a [id number] stitch was placed around our sheath and the sheath was pulled. The area was wet and dried, and Dermabond was placed. The patient tolerated the procedure with no complication. The patient was transferred to the PACU in stable condition. CHRIS MÁRQUEZ DO RADIO ENGINEER/[id number]
== END 2016-11-14 14:10 | disposition home or self-care (01) ==
LOC: JASU-SURG 08:20
PROVIDERS: ATTEND Surgery Vascular Surgery
PROC: 057Y3DZ Dilation of Upper Vein with Intraluminal Device, Percutaneous Approach (ICD-10-PCS; 2016-11-14)
PROC: 03783ZZ Dilation of Left Brachial Artery, Percutaneous Approach (ICD-10-PCS; 2016-11-14)
PROC: B51WYZA Fluoroscopy of Dialysis Shunt/Fistula using Other Contrast, Guidance (ICD-10-PCS; principal; 2016-11-14 10:30)
DX: T82.858A Stenosis of other vascular prosthetic devices, implants and grafts, initial encounter (principal); I12.0 Hypertensive chronic kidney disease with stage 5 chronic kidney disease or end stage renal disease; E11.22 Type 2 diabetes mellitus with diabetic chronic kidney disease; N18.6 End stage renal disease; Z99.2 Dependence on renal dialysis
CPT/HCPCS: 36415; 76000-TC; 84132; 94760; J1644

== ENCOUNTER 2017-02-01 15:49 | Emergency (ER) | payer OTHER ==
[2017-02-01 15:55] VITALS: BP 123/56; PULSE 63; TEMP 98; BMI 32.9
--- NOTE | 2017-02-01 15:56 | PDOC ---
Rapid Medical Evaluation Time Seen by Provider: 02/01/17 15:50 Medical Evaluation: Allergies Allergy/AdvReac Type Severity Reaction Status Date / Time No Known Drug Allergies Allergy Verified 11/13/16 15:51 nut - unspecified [nut] Allergy "HIVES,THROAT Verified 11/13/16 15:51 CLOSES" Fish Containing Products AdvReac Swelling Verified 11/13/16 15:51 02/01/17 15:50 I performed a brief in-person evaluation of this patient. The patient presents with a chief complaint of: productive coughing with whitish to yellowish phlegm and coughing mostly at nights when laying flat. Dialysis patient received flu shot. Pertinent physical exam findings: HEENT: pharynx erythematous, no exudate NAD Lungs: unlabored breathing, clear bilaterally heart:s1s2 I have ordered the following: chest xray The patient will proceed to the Ed for further evaluation
[2017-02-01] MEDS ORDERED: ALBUTEROL SO4 0.083% IH SOL 2.5 MG/3 ML VIAL.NEB. NEB ONE (16:42)
[2017-02-01 16:53] LABS: BASOPHIL 0.9 % (0-2.0); EOSINOPHIL 2.4 % (0-4.5); MCH 27.4 pg (25.7-33.7); MCHC 32.7 g/dl (32.0-36.0); MEAN CELL VOLUME 83.9 fl (80-96); MEAN PLT VOLUME 8.4 fl (7.5-11.1); NEUTROPHILS 62.7 % (42.8-82.8); PLATELET COUNT 254 K/MM3 (134-434); RDW 14.5 % (11.6-15.6); WHITE BLOOD COUNT 11.2 K/mm3 (4.0-10.0)
--- NOTE | 2017-02-01 17:05 | PDOC ---
History of Present Illness - General Chief Complaint: Respiratory Stated Complaint: PRODUCTIVE COUGH Time Seen by Provider: 02/01/17 15:50 History Source: Patient Exam Limitations: No Limitations - History of Present Illness Initial Comments: 02/01/17 17:00 67 yr female with cough runny nose , phlegm for 2 weeks worse at night. Pt denies fever no chest pain or shortness of breath. Pt has dialysis , , saturday . Pt states she had a flu shot has no fever or chills. Timing/Duration: reports: constant (2 weeks) Severity: reports: mild Possible Cause: Yes: occasional episodes Modifying Factors: improves with: lying down Past History - Past Medical History Allergies/Adverse Reactions: Allergies Allergy/AdvReac Type Severity Reaction Status Date / Time No Known Drug Allergies Allergy Verified 02/01/17 15:52 nut - unspecified [nut] Allergy "HIVES,THROAT Verified 02/01/17 15:52 CLOSES" Fish Containing Products AdvReac Swelling Verified 02/01/17 15:52 Home Medications: Ambulatory Orders Clonidine HCl 0.1 mg PO TID 06/23/16 Furosemide [Lasix] 80 mg PO DAILY 06/23/16 Aspirin/Dipyridamole [Aggrenox -] 1 combo PO BID 07/10/16 Diltiazem [Cardizem -] 90 mg PO DAILY 07/10/16 Escitalopram Oxalate [Lexapro -] 5 mg PO DAILY 07/10/16 Metoprolol Succinate [Toprol XL -] 100 mg PO DAILY 07/10/16 Methimazole [Tapazole] 5 mg PO DAILY 11/13/16 Azithromycin [Zithromax 250mg Tablets -] 250 mg PO UTDICT #6 tab 02/01/17 Benzonatate [Tessalon Pearls -] 100 mg PO TID #21 capsule 02/01/17 Anemia: No Asthma: No Cancer: No Cardiac Disorders: Yes ("HEART BEATS FAST OCCAS") CVA: Yes (2012-NO RESIDUAL) COPD: No CHF: No Dementia: No Diabetes: Yes Dialysis: Yes () GI Disorders: No Disorders: No HTN: No Hypercholesterolemia: No Liver Disease: No Seizures: No Thyroid Disease: Yes - Surgical History Abdominal Surgery: No Appendectomy: Yes Cardiac Surgery: No Cholecystectomy: No Lung Surgery: No Neurologic Surgery: No Orthopedic Surgery: No - Suicide/Smoking/Psychosocial Hx Smoking Status: No Smoking History: Former smoker Have you smoked in the past 12 months: No Number of Cigarettes Smoked Daily: 0 Information on smoking cessation initiated: No Hx Alcohol Use: No Drug/Substance Use Hx: No Substance Use Type: None Hx Substance Use Treatment: No Respiratory Specific PMHX - Complaint Specific PMHX Angina: No Bronchitis: No Pneumonia: No Pulmonary Embolus: No TB (Tuberculosis): No Review of Systems - Review of Systems Able to Perform ROS?: Yes Is the patient limited Yakut proficient: No Constitutional: No: Symptoms Reported HEENTM: Yes: Nose Congestion (runny yellow mucous ). No: Symptoms Reported Respiratory: Yes: See HPI, Cough *Physical Exam - Vital Signs Last Vital Signs Temp Pulse Resp BP Pulse Ox 98 F 63 19 123/56 99 02/01/17 15:52 02/01/17 15:52 02/01/17 15:52 02/01/17 15:52 02/01/17 15:52 - Physical Exam General Appearance: Yes: Nourished, Appropriately Dressed HEENT: positive: EOMI, FRANKY, Rhinorrhea Neck: positive: Supple Respiratory/Chest: positive: Normal Breath Sounds (prodictive cough white phlegm ). negative: Chest Tender, Crackles, Rales, Rhonchi, Stridor, Wheezing, Hyperresonant, Dullness Cardiovascular: positive: Regular Rhythm, Regular Rate Gastrointestinal/Abdominal: positive: Normal Bowel Sounds, Soft Musculoskeletal: positive: Normal Inspection Extremity: positive: Normal Capillary Refill, Normal Inspection, Normal Range of Motion Integumentary: positive: Normal Color, Dry, Warm Neurologic: positive: Fully Oriented, Alert, Normal Mood/Affect, Normal Response , Motor Strength /5 ED Treatment Course - LABORATORY CBC & Chemistry Diagram: 02/01/17 16:45 - ADDITIONAL ORDERS Additional order review: 02/01/17 16:45 RBC 3.80 MCV 83.9 MCHC 32.7 RDW 14.5 MPV 8.4 Neutrophils % 62.7 Lymphocytes % 20.3 D Monocytes % 13.7 H Eosinophils % 2.4 D Basophils % 0.9 D - Medications Given in the ED: ED Medications Discontinued Medications Generic Name Dose Route Start Last Admin Trade Name Freq PRN Reason Stop Dose Admin Albuterol Sulfate 1 amp 02/01/17 16:42 02/01/17 16:48 Ventolin 0.083% Nebulizer Soln - NEB 02/01/17 16:43 1 amp ONCE ONE Administration Medical Decision Making - Medical Decision Making 02/01/17 17:07 cc: productive cough white phlegm runny nose with yellow discharge no chest pain, no fever will give albuterol neb for cough CXR done in [facility] shows no infiltrate, mild venous pulmonary congestion no effusion *DC/Admit/Observation/Transfer Diagnosis at time of Disposition: Bronchitis - Discharge Dispostion Disposition: HOME Condition at time of disposition: Improved - Prescriptions Prescriptions: Azithromycin [Zithromax 250mg Tablets -] 250 mg PO UTDICT #6 tab Benzonatate [Tessalon Pearls -] 100 mg PO TID #21 capsule - Referrals Referrals: Rebecca Villarreal [Primary Care Provider] - - Patient Instructions Additional Instructions: follow with on Saturday for follow up return to ER for any worsening symptoms take the antibiotic as prescribed use your inhlaer as directed take tessalon perles for cough as prescribed - Post Discharge Activity
== END 2017-02-01 17:25 | disposition home or self-care (01) ==
LOC: JERFT 15:49
PROC: 3E0F7GC Introduction of Other Therapeutic Substance into Respiratory Tract, Via Natural or Artificial Opening (ICD-10-PCS; principal; 2017-02-01)
DX: J40 Bronchitis, not specified as acute or chronic (principal); E11.22 Type 2 diabetes mellitus with diabetic chronic kidney disease; E11.65 Type 2 diabetes mellitus with hyperglycemia; I12.0 Hypertensive chronic kidney disease with stage 5 chronic kidney disease or end stage renal disease; N18.6 End stage renal disease; N17.8 Other acute kidney failure; Z99.2 Dependence on renal dialysis; Z79.84 Long term (current) use of oral hypoglycemic drugs; Z86.73 Personal history of transient ischemic attack (TIA), and cerebral infarction without residual deficits
CPT/HCPCS: 36415; 71010-TC; 85025; 94640; 99281-25

== ENCOUNTER 2017-06-08 15:38 | Inpatient (IN) | payer OTHER ==
[2017-06-08 15:56] VITALS: BMI 29.0
--- NOTE | 2017-06-08 17:35 | PDOC ---
History of Present Illness - General Chief Complaint: Dialysis Shunt Problem Stated Complaint: PCP SENT/DIALYSIS Time Seen by Provider: 06/08/17 17:35 History Source: Patient Exam Limitations: No Limitations - History of Present Illness Initial Comments: 67yo F w pmhx of diabetes, HTN, ESRD, FE deficiency anemia was sent to us from dialysis clinic because her AV fistula is nonfunctional. Last dialysis was on . ROS: patient denies Headache, blurry vision, N/V/D/C, fever, chills, recent cold , sick contacts, denies chest pain, SOB, palpitation, abdominal pain, dysuria, hematuria, PCP: Rebecca Villarreal Surgeon: Chris Nick PMHX= DM2, HTN, ESRD, Fe deficiency anemia, PShx= Appendectomy, C/S x4 Social: Denies Tobacco, Alcohol, Drug abuse Allergies: NKDA Physical Exam: Vital Signs Period Temp Pulse Resp BP Sys/Chavarria Pulse Ox Last 24 Hr 98.4 F 59 19 131/59 100 General= patient is in NAD HEENT= NC/AT PERRLA, EOMI Pulm= CTABL Heart= RRR no MRG Abd= Soft, NTND Extremities= +2 DP, No edema is seen Neuro= no focal deficit, normal speech Skin= warm and dry, no infection or erythema seen at the site of the fistula but it is tender to palpation Plan: CBC, CMP, PTT/INR, Type and screen, Contacted Dr. Nick he will see the patient 06/08/17 17:36 06/08/17 18:54 case was signed out to dr Chiu pending PCP to call back and dr martha taylor consult pt will need admission for new fistula and dialysis 06/08/17 19:[address] villarreal and admit the patient under her name. Past History - Past Medical History Allergies/Adverse Reactions: Allergies Allergy/AdvReac Type Severity Reaction Status Date / Time No Known Drug Allergies Allergy Verified 06/08/17 15:53 nut - unspecified [nut] Allergy "HIVES,THROAT Verified 06/08/17 15:53 CLOSES" Fish Containing Products AdvReac Swelling Verified 06/08/17 15:53 Home Medications: Ambulatory Orders Furosemide [Lasix] 80 mg PO DAILY 06/23/16 Aspirin/Dipyridamole [Aggrenox -] 1 combo PO BID 07/10/16 Diltiazem [Cardizem -] 180 mg PO TID 07/10/16 Escitalopram Oxalate [Lexapro -] 5 mg PO DAILY 07/10/16 Metoprolol Succinate [Toprol XL -] 100 mg PO HS 07/10/16 Methimazole [Tapazole] 5 mg PO DAILY 11/13/16 Clonidine HCl 1 tab PO TID 04/01/17 Atorvastatin Ca [Lipitor] 20 mg PO HS 06/08/17 Anemia: No Asthma: No Cancer: No Cardiac Disorders: Yes ("HEART BEATS FAST OCCAS") CVA: Yes (2012-NO RESIDUAL) COPD: No CHF: No Dementia: No Diabetes: Yes Dialysis: Yes () GI Disorders: No Disorders: No HTN: No Hypercholesterolemia: No Liver Disease: No Seizures: No Thyroid Disease: Yes - Surgical History Abdominal Surgery: No Appendectomy: Yes Cardiac Surgery: No Cholecystectomy: No Lung Surgery: No Neurologic Surgery: No Orthopedic Surgery: No - Suicide/Smoking/Psychosocial Hx Smoking Status: No Smoking History: Never smoked Have you smoked in the past 12 months: No Number of Cigarettes Smoked Daily: 0 Hx Alcohol Use: No Drug/Substance Use Hx: No Substance Use Type: None Hx Substance Use Treatment: No *Physical Exam - Vital Signs Last Vital Signs Temp Pulse Resp BP Pulse Ox 98.4 F 59 L 19 131/59 100 06/08/17 15:53 06/08/17 15:53 06/08/17 15:53 06/08/17 15:53 06/08/17 15:53 ED Treatment Course - LABORATORY CBC & Chemistry Diagram: 06/08/17 17:39 06/08/17 17:39 *DC/Admit/Observation/Transfer Diagnosis at time of Disposition: Dialysis AV fistula malfunction - Referrals Referrals: Rebecca Villarreal [Primary Care Provider] - - Patient Instructions - Post Discharge Activity
--- NOTE | 2017-06-08 17:43 | PDOC ---
Attending Attestation - Resident Resident Name: DanutaJaya - ED Attending Attestation I have performed the following: I have examined & evaluated the patient, The case was reviewed & discussed with the resident, I agree w/resident's findings & plan, Exceptions are as noted - HPI HPI: 06/08/17 18:56 Ms Correia is a 67 yo F h/o diabetes, HTN, ESRD, FE deficiency anemia who presents to the ER for admission Pt fistula appears to be non functional Pt last dialyzed on They attempted to dialyze today but were only able to do it for a few minutes Pt sent to the ER today for admission PCP: Rebecca Sweet Surgeon: Chris Nick PMHX= DM2, HTN, ESRD, Fe deficiency anemia, PShx= Appendectomy, C/S x4 Social: Denies Tobacco, Alcohol, Drug abuse - Physicial Exam PE: 06/08/17 18:59 On examination: LUE palpable thrill LUE audible bruit Pt is awake and alert RRR CTA - Medical Decision Making 06/08/17 18:59 67 yo F presenting due to fistula dysfunction Laboratory Tests 06/08/17 06/08/17 06/08/17 17:39 17:39 17:39 WBC 8.8 Hgb 11.2 Hct 34.1 Plt Count 164 D INR 1.10 Sodium 138 Potassium 4.1 BUN 36 H Creatinine 4.3 H Random Glucose 159 H Pt admitted to Dr sweet call placed to Dr Nick He will be available to see her in the hospital Clinical impression: fistula dysfunction, initial presentation
[2017-06-08 18:21] LABS: BASO % 0.5 % (0-2.0); EOS % 3.1 % (0-4.5); HEMATOCRIT 34.1 % (32.4-45.2); HEMOGLOBIN 11.2 GM/dL (10.7-15.3); LYMPH % 27.2 % (8-40); MCH 26.3 pg (25.7-33.7); MCHC 32.8 g/dl (32.0-36.0); MEAN CELL VOLUME 80.1 fl (80-96); MEAN PLT VOLUME 9.1 fl (7.5-11.1); MONO % 13.4 % (3.8-10.2); NEUT % 55.8 % (42.8-82.8); PLATELET COUNT 164 K/MM3 (134-434); RBC 4.26 M/mm3 (3.60-5.2); RDW 15.2 % (11.6-15.6); WHITE BLOOD COUNT 8.8 K/mm3 (4.0-10.0)
[2017-06-08 18:46] LABS: ALBUMIN 3.1 g/dl (3.4-5.0); ALK PHOS 123 U/L (45-117); ANION GAP 9 (8-16); BILIRUBIN,TOTAL 0.2 mg/dL (0.2-1.0); BLOOD UREA NITROGEN 36 mg/dL (7-18); CALCIUM 9.1 mg/dL (8.5-10.1); CHLORIDE 107 mmol/L (98-107); CO2 22 mmol/L (21-32); CREATININE 4.3 mg/dL (0.55-1.02); GLUCOSE,RANDOM 159 mg/dL (74-106); POTASSIUM 4.1 mmol/L (3.5-5.1); SGOT/AST 17 U/L (15-37); SGPT/ALT 18 U/L (12-78); SODIUM 138 mmol/L (136-145); TOT PROT 7.1 g/dl (6.4-8.2)
[2017-06-08 18:49] LABS: INR 1.1 (0.82-1.09); PROTHROMBIN TIME (PATIENT) 12.4 SEC (9.98-11.88)
[2017-06-08 18:52] LABS: ACTIVATED PTT 32.5 SECONDS (26.9-34.4)
[2017-06-09] MEDS: cloNIDine HCL 0.1 MG TABLET PO SCH ×4 (05:59→21:34)
[2017-06-09] MEDS: dilTIAZem HCL 60 MG TABLET (FP) PO SCH ×3 (05:59→13:24)
--- NOTE | 2017-06-09 07:34 | HP ---
Admitting History and Physical - Primary Care Physician PCP: Rebecca Villarreal S - Admission Chief Complaint: dyalisis access problems History of Present Illness: 67yo F w pmhx of diabetes, HTN, ESRD, FE deficiency anemia was sent from dialysis clinic because her AV fistula is nonfunctional. Last dialysis was on . 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 mammgram, BDT, she did not do any; I advised pt strongly to do all the above also to f/u with cardiology and endocrine outpt after DC from hospital; weight loss w/u to be done outpt if she continues to lose weight History Source: Patient, Medical Record Limitations to Obtaining History: No Limitations - Past Medical History [employer]PER[employer]OR: Yes: CVA (transient speech loss and left hemiparesis in 2012) Cardiovascular: Yes: CHF (end diastolic), HTN, Hyperlipdemia Pulmonary: Yes: Asthma, Pneumonia, Other (ILD) Gastrointestinal: Yes: Constipation, GERD Hepatobiliary: Yes: Hepatitis C Renal/: Yes: Renal Inusuff, Renal Inusuff Heme/Onc: Yes: Anemia Musculoskeletal: Yes: Osteoarthritis Endocrine: Yes: Diabetes Mellitus (diabetic retinopathy ( treated ) and neuropathy), Hyperthyroidism (Graves Disease with thyroid nodule), Other ( THYROID DISEASE) - Past Surgical History Past Surgical History: Yes: Appendectomy, Colonoscopy, (C section x 4) , Hysterectomy - Smoking History Smoking history: Never smoked Have you smoked in the past 12 months: No Aproximately how many cigarettes per day: 0 - Alcohol/Substance Use Hx Alcohol Use: No History of Substance Use: reports: None - Social History Usual Living Arrangement: Yes: With Child ADL: Independent History of Recent Travel: No Home Medications - Allergies Allergies/Adverse Reactions: Allergies Allergy/AdvReac Type Severity Reaction Status Date / Time No Known Drug Allergies Allergy Verified 06/08/17 15:53 nut - unspecified [nut] Allergy "HIVES,THROAT Verified 06/08/17 15:53 CLOSES" Fish Containing Products AdvReac Swelling Verified 06/08/17 15:53 - Home Medications Home Medications: Ambulatory Orders Aspirin/Dipyridamole [Aggrenox -] 1 combo PO BID 07/10/16 Diltiazem [Cardizem -] 90 mg PO TID 07/10/16 Escitalopram Oxalate [Lexapro -] 5 mg PO DAILY 07/10/16 Metoprolol Succinate [Toprol XL -] 100 mg PO HS 07/10/16 Clonidine HCl 1 tab PO TID 04/01/17 Family Disease History - Family Disease History Family Disease History: Diabetes: Mother (alive 91), Brother Review of Systems - Review of Systems Constitutional: denies: Chills, Fever Eyes: reports: Double Vision. denies: Blind Spots HENT: denies: Difficult Swallowing, Epistaxis Neck: denies: Stiffness, Tenderness Cardiovascular: denies: Chest Pain, Shortness of Breath Respiratory: denies: Cough, PND, SOB Gastrointestinal: denies: Abdominal Pain, Constipation, Diarrhea Genitourinary: denies: Dysuria, Flank Pain Musculoskeletal: denies: Back Pain, Joint Pain Neurological: denies: Change in LOC, Headache, Seizure, Syncope Hematology/Lymphatic: denies: Easily Bruised, Excessive Bleeding Psychiatric: denies: Anxiety, Depression, Suicidal Physical Examination Vital Signs: Vital Signs Temperature 98 F 06/09/17 00:40 Pulse Rate 60 06/09/17 00:40 Respiratory Rate 18 06/09/17 00:40 Blood Pressure 148/79 06/09/17 00:40 O2 Sat by Pulse Oximetry (%) 98 06/09/17 00:30 Constitutional: Yes: No Distress, Calm Eyes: Yes: Conjunctiva Clear HENT: Yes: Atraumatic Neck: Yes: Supple Cardiovascular: Yes: Regular Rate and Rhythm Respiratory: Yes: CTA Bilaterally Gastrointestinal: Yes: Soft. No: Distention, Tenderness Renal/: No: CVA Tenderness - Left, CVA Tenderness - Right Musculoskeletal: No: Joint Stiffness, Joint Swelling Extremities: Yes: Other (LAVF). No: Cold, Cool Edema: No Integumentary: No: Rash, Venous Stasis Changes Neurological: Yes: WNL, Alert, Oriented ...Motor Strength: WNL Psychiatric: Yes: WNL, Alert, Oriented. No: Agitated, Suicidal Ideation Labs: CBC, BMP 06/08/17 17:39 06/08/17 17:39 Imaging - Results Chest X-ray: Report Reviewed Other: Report Reviewed Assessment/Plan 67yo F w pmhx of diabetes, HTN, ESRD, FE deficiency anemia was sent to us from dialysis clinic because her AV fistula is nonfunctional. Last dialysis was on . admit, renal and vascular sx eval cardio eval, not seen outpt falls PFX meds ordered per home list d/w pt and staff
--- NOTE | 2017-06-09 09:01 | EKG ---
Test Reason : Blood Pressure : / mmHG Vent. Rate : 056 BPM Atrial Rate : 056 BPM P-R Int : 288 ms QRS Dur : 098 ms QT Int : 458 ms P-R-T Axes : 080 -13 121 degrees QTc Int : 441 ms SINUS BRADYCARDIA WITH SINUS ARRHYTHMIA WITH 1ST DEGREE A-V BLOCK WITH OCCASIONAL PREMATURE VENTRICULAR COMPLEXES T WAVE ABNORMALITY, CONSIDER LATERAL ISCHEMIA ABNORMAL ECG WHEN COMPARED WITH ECG OF 10-JAN-2017 11:40, VENT. RATE HAS DECREASED BY 38 BPM T WAVE INVERSION MORE EVIDENT IN LATERAL LEADS Confirmed by EVIE DELONG, ANIA ([id number]) on 06/09/2017 9:01:22 AM Referred By: Confirmed By:ANIA CASE MD
--- NOTE | 2017-06-09 09:12 | CONSULT ---
Consult - text type - Consultation Consultation Note: Renal Consult for ESRD on HD This is a 67 year old woman with PMhx of ESRD on HD (TTS), Hypertension, DM, Hepatitis C who presented with clotted AVF. Pt last had dialysis on during which time they were having difficulty with her AVF. Denies any sob, chest pain, abd pain, N/V/D. No Leg swelling. PMhx: as above Allergies: NKDA Family Hx: NC Social Hx: No T/A/D ROS: as per HPI Home Medications Medication Instructions Recorded Aspirin/Dipyridamole [Aggrenox -] 1 combo PO BID 07/10/16 Diltiazem [Cardizem -] 90 mg PO TID 07/10/16 Escitalopram Oxalate [Lexapro -] 5 mg PO DAILY 07/10/16 Metoprolol Succinate [Toprol XL -] 100 mg PO HS 07/10/16 Clonidine HCl 1 tab PO TID 04/01/17 Vital Signs Temperature 98.7 F 06/09/17 06:00 Pulse Rate 74 06/09/17 06:00 Respiratory Rate 18 06/09/17 06:00 Blood Pressure 152/72 06/09/17 06:00 O2 Sat by Pulse Oximetry (%) 98 06/09/17 00:30 NAD awake and alert MMM, NO JVD RRR, No M/R CTA, no rales or wheeze No LE edema, clubbing or cyanosis left arm AVF, no thrill or bruit CBC, BMP 06/08/17 17:39 06/08/17 17:39 Current Medications Atorvastatin Calcium (Lipitor -) 20 mg PO HS [facility] Clonidine (Catapres -) 0.1 mg PO TID [facility] Last Admin: 06/09/17 06:06 Dose: Not Given Diltiazem HCl (Cardizem -) 180 mg PO TID [facility] Last Admin: 06/09/17 06:09 Dose: 90 mg Dipyridamole/Aspirin (Aggrenox -) 1 combo PO BID [facility] Escitalopram Oxalate (Lexapro -) 5 mg PO DAILY [facility] Furosemide (Lasix -) 80 mg PO DAILY [facility] Heparin Sodium (Porcine) (Heparin -) 5,000 unit SQ BID EMELINA Methimazole (Tapazole -) 5 mg PO DAILY EMELINA Metoprolol Succinate (Toprol Xl -) 100 mg PO HS MEELINA 67 year old woman with PMhx of ESRD on HD (TTS), Hypertension, DM, Hepatitis C who presented with clotted AVF #Clotted AVF #ESRD on HD #Hypertension #DM Labs from admission w/o hyperkalemia or overt acidosis, will repeat labs this am if no acute need for HD today can plan for vascular intervention in the AM and dialysis following keep NPO after midnight Renal diet continue Lasix, Clonidine and Metoprolol Continue insulin sliding scale Thank you Will follow Jon Paz DO
[2017-06-09] MEDS ORDERED: SODIUM CHLORIDE 250 ML IV PRN (09:13)
[2017-06-09] MEDS ORDERED: HEPARIN NA (PORCINE) 5,000 UNITS/ML 1ML VIAL IVPUSH ONE (10:00)
[2017-06-09] MEDS ORDERED: PT OWN MED DRAWER 7, Y5N ONE ×2 (10:32→12:19)
[2017-06-09 10:38] LABS: ANION GAP 7 (8-16); BLOOD UREA NITROGEN 38 mg/dL (7-18); CALCIUM 8.9 mg/dL (8.5-10.1); CHLORIDE 109 mmol/L (98-107); CO2 23 mmol/L (21-32); CREATININE 4.4 mg/dL (0.55-1.02); GLUCOSE,RANDOM 137 mg/dL (74-106); POTASSIUM 4.4 mmol/L (3.5-5.1); SODIUM 139 mmol/L (136-145)
[2017-06-09] MEDS: ESCITALOPRAM OXALATE 10 MG TABLET (FP) PO SCH (10:40)
[2017-06-09] MEDS: ASPIRIN/DIPYRIDAMOLE 25 MG/200 MG CAPSULE (FP) PO SCH ×2 (10:41→21:35)
[2017-06-09] MEDS: HEPARIN NA (PORCINE) 5,000 UNITS/ML 1ML VIAL SQ SCH ×2 (10:41→21:35)
[2017-06-09] MEDS: FUROSEMIDE 40 MG TABLET (FP) PO SCH (10:46)
--- NOTE | 2017-06-09 12:42 | CON.CARD ---
Cardiology Consult (text) - Consultation Consultation Note: Chief Complaint: avf not working History of Present Illness: 67y F presents to the ED for evaluation of non working avf. Pt is feeling well, no complaints. No cp, sob, palps, dizzy, loc, pnd, orthopnea, le edema. 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: CVA (transient speech loss and left hemiparesis in 2013) Cardio/Vascular: Yes: CHF (end diastolic), HTN, Hyperlipdemia Pulmonary: Yes: Asthma, Pneumonia, Other (ILD) Gastrointestinal: Yes: Constipation, GERD Hepatobiliary: Yes: Hepatitis C Renal/: Yes: Renal Inusuff, Renal Inusuff Musculoskeletal: Yes: Osteoarthritis Endocrine: Yes: Diabetes Mellitus (diabetic retinopathy ( treated ) and neuropathy), Hyperthyroidism (Graves Disease with thyroid nodule), Other ( THYROID DISEASE) - Past Surgical History Past Surgical History: Yes: Appendectomy, Colonoscopy, (C section x 4) , Hysterectomy - Alcohol/Substance Use Hx Alcohol Use: No History of Substance Use: reports: None - Smoking History Smoking history: Never smoked Have you smoked in the past 12 months: No Aproximately how many cigarettes per day: 0 - Social History Usual Living Arrangement: Alone ADL: Independent History of Recent Travel: No Home Medications - Allergies Allergies/Adverse Reactions: Allergies Allergy/AdvReac Type Severity Reaction Status Date / Time No Known Drug Allergies Allergy Verified 06/08/17 15:53 nut - unspecified [nut] Allergy "HIVES,THROAT Verified 06/08/17 15:53 CLOSES" Fish Containing Products AdvReac Swelling Verified 06/08/17 15:53 - Home Medications Home Medications Medication Instructions Recorded Aspirin/Dipyridamole [Aggrenox -] 1 combo PO BID 07/10/16 Diltiazem [Cardizem -] 90 mg PO TID 07/10/16 Escitalopram Oxalate [Lexapro -] 5 mg PO DAILY 07/10/16 Metoprolol Succinate [Toprol XL -] 100 mg PO HS 07/10/16 Clonidine HCl 1 tab PO TID 04/01/17 Family Disease History - Family Disease History Family Disease History: Diabetes: Mother (alive 91), Brother Vital Signs: Vital Signs Period Temp Pulse Resp BP Sys/Chavarria Pulse Ox Last 24 Hr 98 F-98.7 F 59-74 18-19 131-152/59-79 98-100 nad no jvd rrr s1s2 no mrg ctabl nl eff aaox3 no le e/c/c abd nt nd pos bs no jaundice diaphoresis pos dp pt no carotid bruit Laboratory Last Values WBC 8.8 K/mm3 (4.0-10.0) 06/08/17 17:39 RBC 4.26 M/mm3 (3.60-5.2) 06/08/17 17:39 Hgb 11.2 GM/dL (10.7-15.3) 06/08/17 17:39 Hct 34.1 % (32.4-45.2) 06/08/17 17:39 MCV 80.1 fl (80-96) 06/08/17 17:39 MCH 26.3 pg (25.7-33.7) 06/08/17 17:39 MCHC 32.8 g/dl (32.0-36.0) 06/08/17 17:39 RDW 15.2 % (11.6-15.6) 06/08/17 17:39 Plt Count 164 K/MM3 (134-434) D 06/08/17 17:39 MPV 9.1 fl (7.5-11.1) 06/08/17 17:39 Neutrophils % 55.8 % (42.8-82.8) 06/08/17 17:39 Lymphocytes % 27.2 % (8-40) D 06/08/17 17:39 Monocytes % 13.4 % (3.8-10.2) H 06/08/17 17:39 Eosinophils % 3.1 % (0-4.5) 06/08/17 17:39 Basophils % 0.5 % (0-2.0) 06/08/17 17:39 PT with INR 12.40 SEC (9.98-11.88) H 06/08/17 17:39 INR 1.10 (0.82-1.09) 06/08/17 17:39 PTT (Actin FS) 32.5 SECONDS (26.9-34.4) 06/08/17 17:39 Sodium 139 mmol/L (136-145) 06/09/17 09:00 Potassium 4.4 mmol/L (3.5-5.1) 06/09/17 09:00 Chloride 109 mmol/L (98-107) H 06/09/17 09:00 Carbon Dioxide 23 mmol/L (21-32) 06/09/17 09:00 Anion Gap 7 (8-16) L 06/09/17 09:00 BUN 38 mg/dL (7-18) H 06/09/17 09:00 Creatinine 4.4 mg/dL (0.55-1.02) H 06/09/17 09:00 Creat Clearance w eGFR 10.27 (>60) 06/08/17 17:39 Random Glucose 137 mg/dL (74-106) H 06/09/17 09:00 Calcium 8.9 mg/dL (8.5-10.1) 06/09/17 09:00 Total Bilirubin 0.2 mg/dL (0.2-1.0) D 06/08/17 17:39 AST 17 U/L (15-37) 06/08/17 17:39 ALT 18 U/L (12-78) 06/08/17 17:39 Alkaline Phosphatase 123 U/L (45-117) H 06/08/17 17:39 Total Protein 7.1 g/dl (6.4-8.2) 06/08/17 17:39 Albumin 3.1 g/dl (3.4-5.0) L 06/08/17 17:39 Anti-A Titer Cancelled 06/08/17 17:39 Blood Type O POSITIVE 06/08/17 19:00 Antibody Screen Positive H 06/08/17 19:00 Antibody Identification Anti jkb 06/08/17 19:00 Antigen Identification Jkb Antigen - NEGATIVE 06/08/17 19:00 IEcho 03/22/16: Mod LV global systolic dysfunction. Nl RV. trace MR. (Per echo report, no significant difference in EF's of all echos) Echo 03/12/16: mild LV dilation. Moderately reduced LV fn. Severe apical wall HK. MIld LAE. Mod-sev MR. Mod TR. RVSP 30-40. 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 HTN -cont same meds for now, monitor ESRD, on HD: -avf not working. no cardiac contraindications to avf repair. -HD per renal h/o CVA - has been on aggrenox chronically
[2017-06-09] MEDS: METHIMAZOLE 5 MG TABLET (FP) PO SCH (13:26)
[2017-06-09] MEDS: DILTIAZEM 60 MG, DILTIAZEM 30 MG PO SCH ×2 (15:06→21:34)
[2017-06-09] MEDS ORDERED: dilTIAZem HCL 30 MG TABLET (FP) ONE (20:58)
[2017-06-09] MEDS ORDERED: dilTIAZem HCL 60 MG TABLET (FP) ONE (20:58)
[2017-06-09] MEDS: ATORVASTATIN CA 20 MG TABLET (FP) PO SCH (21:34)
[2017-06-10] MEDS: DILTIAZEM 60 MG, DILTIAZEM 30 MG PO SCH ×3 (05:20→22:36)
[2017-06-10] MEDS: cloNIDine HCL 0.1 MG TABLET PO SCH ×3 (05:20→22:37)
[2017-06-10] MEDS ORDERED: HEPARIN NA (PORCINE) 5,000 UNITS/ML 1ML VIAL IVPUSH ONE (06:00)
--- NOTE | 2017-06-10 06:49 | PN ---
Progress Note, Physician Chief Complaint: in bed nad no new c/o consults test reviewed and w/ pt - Current Medication List Current Medications: Active Medications Atorvastatin Calcium (Lipitor -) 20 mg PO [facility] Last Admin: 06/09/17 21:34 Dose: 20 mg Clonidine (Catapres -) 0.1 mg PO TID [facility] Last Admin: 06/10/17 05:20 Dose: Not Given Diltiazem HCl 60 mg/ Diltiazem (HCl 30 mg) 90 mg PO TID [facility] Last Admin: 06/10/17 05:20 Dose: Not Given Dipyridamole/Aspirin (Aggrenox -) 1 combo PO BID [facility] Last Admin: 06/09/17 21:35 Dose: 1 combo Escitalopram Oxalate (Lexapro -) 5 mg PO DAILY [facility] Last Admin: 06/09/17 10:40 Dose: 5 mg Furosemide (Lasix -) 80 mg PO DAILY [facility] Last Admin: 06/09/17 10:46 Dose: 80 mg Heparin Sodium (Porcine) (Heparin -) 5,000 unit SQ BID [facility] Last Admin: 06/09/17 21:35 Dose: 5,000 unit Heparin Sodium (Porcine) (Heparin -) 1,000 unit IVPUSH ONCE ONE Stop: 06/09/17 10:01 Sodium Chloride (Normal Saline -) 250 mls @ 3,000 mls/hr IV PRN PRN PRN Reason: Hypotension during Dialysis Stop: 06/10/17 09:14 Methimazole (Tapazole -) 5 mg PO DAILY [facility] Last Admin: 06/09/17 13:26 Dose: 5 mg Metoprolol Succinate (Toprol Xl -) 100 mg PO [facility] Last Admin: 06/09/17 21:34 Dose: 100 mg - Objective Vital Signs: Vital Signs Temperature 98.9 F 06/10/17 02:00 Pulse Rate 63 06/10/17 02:00 Respiratory Rate 18 06/10/17 02:00 Blood Pressure 131/65 06/10/17 02:00 O2 Sat by Pulse Oximetry (%) 97 06/09/17 21:00 Constitutional: Yes: No Distress, Calm Eyes: Yes: Conjunctiva Clear HENT: Yes: Atraumatic Neck: Yes: Supple Cardiovascular: Yes: Regular Rate and Rhythm Respiratory: Yes: CTA Bilaterally Gastrointestinal: Yes: Soft. No: Distention, Tenderness Genitourinary: No: CVA Tenderness - Left, CVA Tenderness - Right Musculoskeletal: No: Joint Stiffness, Joint Swelling Extremities: No: Cold, Cool Edema: No Integumentary: No: Rash, Venous Stasis Changes Neurological: Yes: WNL, Alert, Oriented ...Motor Strength: WNL Psychiatric: Yes: WNL, Alert, Oriented. No: Agitated, Suicidal Ideation Labs: CBC, BMP 06/08/17 17:39 06/09/17 09:00 INR, PTT INR 1.10 (0.82-1.09) 06/08/17 17:39 - ....Imaging Other: Report Reviewed Assessment/Plan 67yo F w pmhx of diabetes, HTN, ESRD, FE deficiency anemia was sent to us from dialysis clinic because her AV fistula is nonfunctional. Last dialysis was on . renal and vascular sx f/u cardio eval, not seen outpt falls PFX meds ordered per home list d/w pt and staff
[2017-06-10 09:08] LABS: ANION GAP 8 (8-16); BLOOD UREA NITROGEN 44 mg/dL (7-18); CALCIUM 9.3 mg/dL (8.5-10.1); CHLORIDE 109 mmol/L (98-107); CO2 23 mmol/L (21-32); CREATININE 4.4 mg/dL (0.55-1.02); GLUCOSE,RANDOM 103 mg/dL (74-106); POTASSIUM 4.3 mmol/L (3.5-5.1); SODIUM 140 mmol/L (136-145)
[2017-06-10] MEDS: HEPARIN NA (PORCINE) 5,000 UNITS/ML 1ML VIAL SQ SCH ×2 (10:20→22:38)
[2017-06-10] MEDS: ASPIRIN/DIPYRIDAMOLE 25 MG/200 MG CAPSULE (FP) PO SCH ×2 (10:20→22:36)
[2017-06-10] MEDS: FUROSEMIDE 40 MG TABLET (FP) PO SCH (10:20)
[2017-06-10] MEDS: ESCITALOPRAM OXALATE 10 MG TABLET (FP) PO SCH (10:20)
[2017-06-10] MEDS: METHIMAZOLE 5 MG TABLET (FP) PO SCH (10:21)
[2017-06-10] MEDS ORDERED: dilTIAZem HCL 30 MG TABLET (FP) ONE ×2 (14:46→21:34)
[2017-06-10] MEDS ORDERED: dilTIAZem HCL 60 MG TABLET (FP) ONE ×2 (14:46→21:34)
[2017-06-10] MEDS ORDERED: HEPARIN NA (PORCINE) 5,000 UNITS/ML 1ML VIAL ONE (15:29)
[2017-06-10] MEDS ORDERED: LIDOCAINE HCL 1%, 10 MG/ML (20ML VIAL) ONE (15:29)
--- NOTE | 2017-06-10 18:23 | PN ---
Progress Note (short form) - Note Progress Note: Renal follow up for ESRD on HD Pt seen and examined at the bedside HD attempted this am but unable to be performed b/c AVF has clotts pt w/o any acute complaints Vital Signs Temperature 99.2 F 06/10/17 13:55 Pulse Rate 79 06/10/17 13:55 Respiratory Rate 18 06/10/17 13:55 Blood Pressure 154/77 06/10/17 13:55 O2 Sat by Pulse Oximetry (%) 99 06/10/17 10:00 Intake & Output 06/07/17 06/08/17 06/09/17 06/10/17 23:59 23:59 23:59 23:59 Intake Total 0 Balance 0 Weight 83.915 kg 85.332 kg 84.459 kg NAD awake and alert MMM, NO JVD RRR, No M/R CTA, no rales or wheeze No LE edema, clubbing or cyanosis left arm AVF, no thrill or bruit CBC, BMP 06/08/17 17:39 06/10/17 08:25 Current Medications Atorvastatin Calcium (Lipitor -) 20 mg PO HS [facility] Last Admin: 06/09/17 21:34 Dose: 20 mg Clonidine (Catapres -) 0.1 mg PO TID [facility] Last Admin: 06/10/17 14:45 Dose: Not Given Diltiazem HCl 60 mg/ Diltiazem (HCl 30 mg) 90 mg PO TID [facility] Last Admin: 06/10/17 14:45 Dose: Not Given Dipyridamole/Aspirin (Aggrenox -) 1 combo PO BID [facility] Last Admin: 06/10/17 10:20 Dose: Not Given Escitalopram Oxalate (Lexapro -) 5 mg PO DAILY [facility] Last Admin: 06/10/17 10:20 Dose: Not Given Furosemide (Lasix -) 80 mg PO DAILY [facility] Last Admin: 06/10/17 10:20 Dose: Not Given Heparin Sodium (Porcine) (Heparin -) 5,000 unit SQ BID [facility] Last Admin: 06/10/17 10:20 Dose: Not Given Heparin Sodium (Porcine) (Heparin -) 1,000 unit IVPUSH ONCE ONE Stop: 06/09/17 10:01 Sodium Chloride (Normal Saline -) 250 mls @ 3,000 mls/hr IV PRN PRN PRN Reason: Hypotension during Dialysis Stop: 06/10/17 09:14 Methimazole (Tapazole -) 5 mg PO DAILY [facility] Last Admin: 06/10/17 10:21 Dose: Not Given Metoprolol Succinate (Toprol Xl -) 100 mg PO HS [facility] Last Admin: 06/09/17 21:34 Dose: 100 mg 67 year old woman with PMhx of ESRD on HD (TTS), Hypertension, DM, Hepatitis C who presented with clotted AVF #Clotted AVF #ESRD on HD #Hypertension #DM for Vascualar Declott today will have dialysis following D/c planning after sucessful dialysis Jon Paz DO
--- NOTE | 2017-06-10 19:19 | PN ---
Progress Note (short form) - Note Progress Note: Chief Complaint: avf not working Current Medications Atorvastatin Calcium (Lipitor -) 20 mg PO [facility] Last Admin: 06/09/17 21:34 Dose: 20 mg Clonidine (Catapres -) 0.1 mg PO TID [facility] Last Admin: 06/10/17 14:45 Dose: Not Given Diltiazem HCl 60 mg/ Diltiazem (HCl 30 mg) 90 mg PO TID [facility] Last Admin: 06/10/17 14:45 Dose: Not Given Dipyridamole/Aspirin (Aggrenox -) 1 combo PO BID [facility] Last Admin: 06/10/17 10:20 Dose: Not Given Escitalopram Oxalate (Lexapro -) 5 mg PO DAILY [facility] Last Admin: 06/10/17 10:20 Dose: Not Given Furosemide (Lasix -) 80 mg PO DAILY [facility] Last Admin: 06/10/17 10:20 Dose: Not Given Heparin Sodium (Porcine) (Heparin -) 5,000 unit SQ BID [facility] Last Admin: 06/10/17 10:20 Dose: Not Given Heparin Sodium (Porcine) (Heparin -) 1,000 unit IVPUSH ONCE ONE Stop: 06/09/17 10:01 Sodium Chloride (Normal Saline -) 250 mls @ 3,000 mls/hr IV PRN PRN PRN Reason: Hypotension during Dialysis Stop: 06/10/17 09:14 Methimazole (Tapazole -) 5 mg PO DAILY [facility] Last Admin: 06/10/17 10:21 Dose: Not Given Metoprolol Succinate (Toprol Xl -) 100 mg PO [facility] Last Admin: 06/09/17 21:34 Dose: 100 mg Vital Signs - 24 hr 06/09/17 06/09/17 06/10/17 21:00 21:33 02:00 Temperature 98.1 F 98.9 F Pulse Rate 70 63 Respiratory 18 18 Rate Blood Pressure 154/81 131/65 O2 Sat by Pulse 97 Oximetry (%) 06/10/17 06/10/17 06/10/17 06:00 08:20 10:00 Temperature 99.0 F 99.1 F Pulse Rate 69 67 Respiratory 18 18 Rate Blood Pressure 148/65 137/68 O2 Sat by Pulse 99 Oximetry (%) 06/10/17 13:55 Temperature 99.2 F Pulse Rate 79 Respiratory 18 Rate Blood Pressure 154/77 O2 Sat by Pulse Oximetry (%) Intake & Output 06/08/17 06/09/17 06/10/17 06/11/17 07:59 07:59 07:59 07:59 Intake Total 0 Balance 0 Weight 188 lb 2 oz 186 lb 3.2 oz nad no jvd rrr s1s2 no mrg ctabl nl eff aaox3 no le e/c/c abd nt nd pos bs no jaundice diaphoresis pos dp pt no carotid bruit CBC, BMP 06/08/17 17:39 06/10/17 08:25 IEcho 03/22/16: Mod LV global systolic dysfunction. Nl RV. trace MR. (Per echo report, no significant difference in EF's of all echos) Echo 03/12/16: mild LV dilation. Moderately reduced LV fn. Severe apical wall HK. MIld LAE. Mod-sev MR. Mod TR. RVSP 30-40. 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 HTN -cont same meds for now, monitor ESRD, on HD: -avf not working. no cardiac contraindications to avf repair. -HD per renal h/o CVA - has been on aggrenox chronically
--- NOTE | 2017-06-10 20:02 | PN ---
Progress Note (short form) - Note Progress Note: Vascular Surgery Left avf thrombosed. There is a bruit in the avf. Will need venogram. Pt was on the schedule for today -- but the earliest time to start is 10pm. Will reschudule pt to 9am mahin. Pt will have dinner. NPO past midnight Chris thomas DO
[2017-06-10] MEDS: ATORVASTATIN CA 20 MG TABLET (FP) PO SCH (22:38)
[2017-06-11] MEDS: DILTIAZEM 60 MG, DILTIAZEM 30 MG PO SCH (06:46)
[2017-06-11] MEDS: cloNIDine HCL 0.1 MG TABLET PO SCH (06:46)
--- NOTE | 2017-06-11 07:03 | PN ---
Progress Note, Physician Chief Complaint: s/p AVF repair see DC summary dyalsied by renal; can go home per renal f/u with dr Nick - Current Medication List Current Medications: Active Medications Atorvastatin Calcium (Lipitor -) 20 mg PO HS [facility] Last Admin: 06/10/17 22:38 Dose: 20 mg Clonidine (Catapres -) 0.1 mg PO TID [facility] Last Admin: 06/11/17 06:46 Dose: Not Given Diltiazem HCl 60 mg/ Diltiazem (HCl 30 mg) 90 mg PO TID [facility] Last Admin: 06/11/17 06:46 Dose: Not Given Dipyridamole/Aspirin (Aggrenox -) 1 combo PO BID [facility] Last Admin: 06/10/17 22:36 Dose: Not Given Escitalopram Oxalate (Lexapro -) 5 mg PO DAILY [facility] Last Admin: 06/10/17 10:20 Dose: Not Given Furosemide (Lasix -) 80 mg PO DAILY [facility] Last Admin: 06/10/17 10:20 Dose: Not Given Heparin Sodium (Porcine) (Heparin -) 5,000 unit SQ BID [facility] Last Admin: 06/10/17 22:38 Dose: Not Given Heparin Sodium (Porcine) (Heparin -) 1,000 unit IVPUSH ONCE ONE Stop: 06/09/17 10:01 Sodium Chloride (Normal Saline -) 250 mls @ 3,000 mls/hr IV PRN PRN PRN Reason: Hypotension during Dialysis Stop: 06/10/17 09:14 Methimazole (Tapazole -) 5 mg PO DAILY [facility] Last Admin: 06/10/17 10:21 Dose: Not Given Metoprolol Succinate (Toprol Xl -) 100 mg PO HS [facility] Last Admin: 06/10/17 22:38 Dose: 100 mg - Objective Vital Signs: Vital Signs Temperature 99.2 F 06/10/17 13:55 Pulse Rate 79 06/10/17 13:55 Respiratory Rate 18 06/10/17 21:00 Blood Pressure 154/77 06/10/17 13:55 O2 Sat by Pulse Oximetry (%) 99 06/10/17 21:00 Labs: CBC, BMP 06/08/17 17:39 06/10/17 08:25 INR, PTT INR 1.10 (0.82-1.09) 06/08/17 17:39
[2017-06-11] MEDS ORDERED: HEPARIN NA (PORCINE) 5,000 UNITS/ML 1ML VIAL ONE ×2 (07:34→08:16)
[2017-06-11] MEDS ORDERED: MIDAZOLAM HCL 2 MG/2 ML SINGLE DOSE VIAL ONE (07:54)
[2017-06-11] MEDS ORDERED: ceFAZolin SODIUM 1 GM VIAL IVPB ONE (08:10)
[2017-06-11] MEDS ORDERED: LIDOCAINE HCL 1%, 10 MG/ML (20ML VIAL) INF ONE ×2 (08:10)
[2017-06-11] MEDS ORDERED: ceFAZolin SODIUM 1 GM VIAL ONE (08:12)
[2017-06-11] MEDS ORDERED: HEPARIN NA (PORCINE) 5,000 UNITS/ML 1ML VIAL SQ ONE (08:12)
[2017-06-11] MEDS ORDERED: PROPOFOL 20 ML ONE (08:12)
[2017-06-11] MEDS ORDERED: ONDANSETRON 4 MG/2 ML VIAL IVPUSH PRN ×2 (08:32→09:53)
[2017-06-11] MEDS ORDERED: SODIUM CHLORIDE 1,000 ML IV SCH ×2 (08:45→09:53)
--- NOTE | 2017-06-11 09:05 | OP ---
Operative Note - Note: Operative Date: 06/11/17 Pre-Operative Diagnosis: low flow left avf Operation: venogram, venoplasty left avf Post-Operative Diagnosis: Same as Pre-op Surgeon: Chris Nick Anesthesia: Fractional Estimated Blood Loss (mls): 20 Operative Report Dictated: Yes
[2017-06-11] MEDS ORDERED: METHIMAZOLE 5 MG TABLET (FP) PO SCH (10:00)
[2017-06-11] MEDS ORDERED: HEPARIN NA (PORCINE) 5,000 UNITS/ML 1ML VIAL SQ SCH (10:00)
[2017-06-11] MEDS ORDERED: FUROSEMIDE 40 MG TABLET (FP) PO SCH (10:00)
[2017-06-11] MEDS ORDERED: ASPIRIN/DIPYRIDAMOLE 25 MG/200 MG CAPSULE (FP) PO SCH (10:00)
[2017-06-11] MEDS ORDERED: ESCITALOPRAM OXALATE 10 MG TABLET (FP) PO SCH (10:00)
[2017-06-11 10:33] VITALS: TEMP 98.5
[2017-06-11] MEDS ORDERED: LIDOCAINE 2.5%/PRILOCAINE 2.5% (5 Gram/TUBE) TP ONE (11:56)
[2017-06-11] MEDS ORDERED: SODIUM CHLORIDE 250 ML IV PRN (13:15)
[2017-06-11] MEDS ORDERED: HEPARIN NA (PORCINE) 5,000 UNITS/ML 1ML VIAL IVPUSH ONE (13:15)
[2017-06-11] MEDS ORDERED: cloNIDine HCL 0.1 MG TABLET PO SCH (14:00)
[2017-06-11] MEDS ORDERED: DILTIAZEM 60 MG, DILTIAZEM 30 MG PO SCH (14:00)
[2017-06-11 15:02] LABS: ANION GAP 13 (8-16); BLOOD UREA NITROGEN 49 mg/dL (7-18); CALCIUM 9.1 mg/dL (8.5-10.1); CHLORIDE 109 mmol/L (98-107); CO2 20 mmol/L (21-32); CREATININE 4.7 mg/dL (0.55-1.02); GLUCOSE,RANDOM 106 mg/dL (74-106); POTASSIUM 4.6 mmol/L (3.5-5.1); SODIUM 142 mmol/L (136-145)
[2017-06-11] MEDS ORDERED: PT OWN MED DRAWER 7, Y5N ONE ×2 (15:06→17:21)
--- NOTE | 2017-06-11 16:37 | DS ---
Physical Examination Vital Signs: Vital Signs Temperature 98.5 F 06/11/17 10:33 Pulse Rate 102 H 06/11/17 15:10 Respiratory Rate 18 06/11/17 15:10 Blood Pressure 162/101 06/11/17 15:10 O2 Sat by Pulse Oximetry (%) 96 06/11/17 10:33 Findings/Remarks: s/p AVF repair, I d/w dr Paz renal OK to go home, f/u with dr Nick as per previous discussions with pt, she should f/u with PCP renal vascular sx, also with cardiology,endocrine outpt, and health maintenance pap [employer] GI colonsocpy and mammogram dw pt Constitutional: Yes: No Distress, Calm Eyes: Yes: Conjunctiva Clear HENT: Yes: Atraumatic Neck: Yes: Supple Cardiovascular: Yes: Regular Rate and Rhythm Respiratory: Yes: CTA Bilaterally Gastrointestinal: Yes: Soft, Tenderness. No: Distention Renal/: No: CVA Tenderness - Left, CVA Tenderness - Right Musculoskeletal: No: Joint Stiffness, Joint Swelling Extremities: No: Cold, Cool, Cyanosis Edema: No Integumentary: No: Rash, Venous Stasis Changes Neurological: Yes: WNL, Alert, Oriented ...Motor Strength: WNL Psychiatric: Yes: WNL, Alert, Oriented. No: Agitated, Suicidal Ideation Labs: CBC, BMP 06/08/17 17:39 06/11/17 12:40 Discharge Summary Reason For Visit: MALFUNCTION OF ARTERIOVENOUS DIALYSIS FISTULA Current Active Problems Dialysis AV fistula malfunction (Acute) Procedures: Principal: admitted for AVF malfunction Other Procedures: AVF venogram, surgery per dr Nick ;. dyalsis per renal dr Paz; Hospital Course: improved with above; DC home and f/u as advised Condition: Improved - Instructions Diet, Activity, Other Instructions: f/u with PCP and vascular sx in 1 week after DC dyalisis per renal RTER if worse or recurrent problem falls PFX also advised health maintenance pap [employer] GI colonoscopy BDT mammogram outpt Referrals: Rebecca Villarreal [Primary Care Provider] - Garfield Arriaza MD [Staff Physician] - Chris Nick MD [Staff Physician] - Jon Paz MD [Staff Physician] - Katherine Natarajan MD [Staff Physician] - Disposition: VNS/HOME HEALTH CARE - Home Medications Comprehensive Discharge Medication List: Ambulatory Orders Aspirin/Dipyridamole [Aggrenox -] 1 combo PO BID 07/10/16 Diltiazem [Cardizem -] 90 mg PO TID 07/10/16 Escitalopram Oxalate [Lexapro -] 5 mg PO DAILY 07/10/16 Metoprolol Succinate [Toprol XL -] 100 mg PO HS 07/10/16 Clonidine HCl 1 tab PO TID 04/01/17
--- NOTE | 2017-06-11 17:06 | PN ---
Progress Note (short form) - Note Progress Note: Renal follow up for ESRD on HD Pt seen and examined at the bedside s/p dialysis earlier today only able to get 300 blood flow no sob, chest pain, abd pain Vital Signs Temperature 98.5 F 06/11/17 10:33 Pulse Rate 102 H 06/11/17 15:10 Respiratory Rate 18 06/11/17 15:10 Blood Pressure 162/101 06/11/17 15:10 O2 Sat by Pulse Oximetry (%) 96 06/11/17 10:33 Intake & Output 06/08/17 06/09/17 06/10/17 06/11/17 23:59 23:59 23:59 23:59 Intake Total 0 0 250 Output Total 20 Balance 0 0 230 Weight 83.915 kg 85.332 kg 84.459 kg 83.098 kg NAD awake and alert MMM, NO JVD RRR, No M/R CTA, no rales or wheeze No LE edema, clubbing or cyanosis left arm AVF, no thrill or bruit CBC, BMP 06/08/17 17:39 06/11/17 12:40 Current Medications Atorvastatin Calcium (Lipitor -) 20 mg PO HS [facility] Clonidine (Catapres -) 0.1 mg PO TID [facility] Diltiazem HCl 60 mg/ Diltiazem (HCl 30 mg) 90 mg PO TID [facility] Dipyridamole/Aspirin (Aggrenox -) 1 combo PO BID [facility] Escitalopram Oxalate (Lexapro -) 5 mg PO DAILY [facility] Fentanyl (Sublimaze Injection -) 25 mcg IVPUSH [id number] PRN PRN Reason: PAIN-PACU ORDER X 4 DOSES ONLY Furosemide (Lasix -) 80 mg PO DAILY [facility] Heparin Sodium (Porcine) (Heparin -) 5,000 unit SQ BID [facility] Sodium Chloride (Normal Saline -) 250 mls @ 3,000 mls/hr IV PRN PRN PRN Reason: Hypotension during Dialysis Sodium Chloride (Normal Saline -) 1,000 mls @ 42 mls/hr IV ASDIR [facility] Methimazole (Tapazole -) 5 mg PO DAILY [facility] Metoprolol Succinate (Toprol Xl -) 100 mg PO HS [facility] Ondansetron HCl (Zofran Injection) 4 mg IVPUSH Q6H PRN PRN Reason: NAUSEA AND/OR VOMITING 67 year old woman with PMhx of ESRD on HD (TTS), Hypertension, DM, Hepatitis C who presented with clotted AVF #Clotted AVF #ESRD on HD #Hypertension #DM s/p vascular intervention and HD today however BFR was not at goal, will need repeat vascular intervention as a outpatient can be discharged and resume dialysis as outpatient on Jon Paz DO
[2017-06-11] MEDS ORDERED: dilTIAZem HCL 30 MG TABLET (FP) ONE (17:25)
[2017-06-11] MEDS ORDERED: dilTIAZem HCL 60 MG TABLET (FP) ONE (17:26)
[2017-06-11 17:49] VITALS: BP 161/109; PULSE 77
[2017-06-11] MEDS ORDERED: ATORVASTATIN CA 20 MG TABLET (FP) PO SCH (22:00)
[2017-06-12 14:21] LABS: HBSAG SCREEN Negative (Negative); HEP B CORE AB, TOT Negative (Negative)
--- NOTE | 2017-06-13 16:45 | OP ---
DATE OF OPERATION: 06/11/2017 PREOPERATIVE DIAGNOSIS: Poor flow through left arteriovenous fistula. POSTOPERATIVE DIAGNOSIS: Poor flow through left arteriovenous fistula. PROCEDURE: Venogram, venoplasty of left arteriovenous fistula. SURGEON: Chris Márquez DO ANESTHESIA: Fractional. BLOOD LOSS: 10 mL The patient is a 67-year-old female who came in from dialysis due to difficult cannulation and with clots coming out at the dialysis unit when they attempted to cannulate her left AV fistula. It was decided that she would need a venogram to see what the problem was. Patient was consented for the procedure, understanding all risks, benefits, and alternatives. She was then brought to the operating room. Once in the operating room, she was laid on the operative table in supine manner, and the area of the left arm was prepped and draped in a sterile surgical manner. We then went ahead and injected 5 mL of lidocaine 1% at the proximal AV fistula, and we then went ahead and punctured the left AV fistula using our micropuncture needle. Micropuncture wire was inserted, and a short 6-Leb[place] sheath was inserted. We then shot our venogram by hand injection showing that the body of the fistula was severely stenotic, and the central veins were patent. At this point, we went ahead and used a 9 x 8 [place] balloon and performed venoplasty of the entire fistula. Once completed, there was good flow, and a thrill was present. We then went ahead and injected 2 mL of lidocaine 1% in the distal AV fistula and went ahead and punctured the AV fistula towards the arterial anastomosis. Micropuncture wire was inserted, and a traditional short 6-[place] sheath was inserted. We then placed a 0.035 floppy guidewire across the anastomosis and then used a 6 x 4 balloon and performed venoplasty of the anastomosis. Patient had a good thrill. At this point, we used a 4-0 Biosyn stitch and a figure-of-8 stitch was placed around each sheath, and the sheaths were pulled. The area was wet and dried, and Dermabond was placed. Patient tolerated the procedure with no complication. Total blood loss: 20 mL. CHRIS MÁRQUEZ DO [id number]
== END 2017-06-11 17:58 | disposition home or self-care (01) | DRG 252 ==
LOC: JER 15:38 → JERBED 18:58 → J5S 06-09 00:47
PROVIDERS: ADMIT Internal Medicine; ATTEND Internal Medicine
PROC: B50NYZZ Plain Radiography of Left Upper Extremity Veins using Other Contrast (ICD-10-PCS; 2017-06-11)
PROC: 5A1D90Z Performance of Urinary Filtration, Continuous, Greater than 18 hours Per Day (ICD-10-PCS; 2017-06-11)
PROC: 05CY3ZZ Extirpation of Matter from Upper Vein, Percutaneous Approach (ICD-10-PCS; principal; 2017-06-11 07:30)
DX: T82.868A Thrombosis due to vascular prosthetic devices, implants and grafts, initial encounter (principal); N18.6 End stage renal disease; I13.2 Hypertensive heart and chronic kidney disease with heart failure and with stage 5 chronic kidney disease, or end stage renal disease; I50.20 Unspecified systolic (congestive) heart failure; I47.1 Supraventricular tachycardia; I42.9 Cardiomyopathy, unspecified; E11.22 Type 2 diabetes mellitus with diabetic chronic kidney disease; Z99.2 Dependence on renal dialysis; I34.0 Nonrheumatic mitral (valve) insufficiency; Y83.9 Surgical procedure, unspecified as the cause of abnormal reaction of the patient, or of later complication, without mention of misadventure at the time of the procedure
CPT/HCPCS: 36415; 71045-TC-FY; 76000-TC-FY; 80048; 80053; 85025; 85610; 85730; 86704; 86706; 86708; 86850; 86870; 86900; 86901; 86902; 87340; 93005; 93010; 94760; 99283-25; J0735; J1644

== ENCOUNTER 2017-11-18 09:12 | Inpatient (IN) | payer OTHER ==
--- NOTE | 2017-11-18 09:32 | PDOC ---
History of Present Illness - General Chief Complaint: Wound Stated Complaint: COMING FROM WOUND CARE Time Seen by Provider: 11/18/17 09:28 History Source: Patient Exam Limitations: No Limitations - History of Present Illness Initial Comments: 11/18/17 11:18 The patient is a 67F with a PMH of diabetes, HTN, ESRD, iron deficiency anemia who presents to the ER sent from wound clinic for evaluation. The patient states that she woke up this morning feeling shortness of breath. She has not had this before. She denies any MATHEWS, orthopnea, CP, palpitations, lightheadedness, and swelling. The patient states that she was being seen by Dr. Nick, her wound care doctor, and he recommended her to go to the ER for evaluation. Past History - Past Medical History Allergies/Adverse Reactions: Allergies Allergy/AdvReac Type Severity Reaction Status Date / Time nut - unspecified [nut] Allergy "HIVES,THROAT Verified 11/18/17 09:15 CLOSES" Fish Containing Products AdvReac Swelling Verified 11/18/17 09:15 Home Medications: Ambulatory Orders Diltiazem [Cardizem -] 90 mg PO TID 07/10/16 Escitalopram Oxalate [Lexapro -] 5 mg PO DAILY 07/10/16 Metoprolol Succinate [Toprol XL -] 100 mg PO HS 07/10/16 Clonidine HCl 1 tab PO TID 04/01/17 Apixaban [Eliquis] 5 mg PO BID 11/18/17 Atorvastatin Calcium 20 mg PO HS 11/18/17 Furosemide [Lasix] 80 mg PO DAILY 11/18/17 Methimazole [Tapazole] 5 mg PO DAILY 11/18/17 Anemia: Yes (iron deficiency anemia) Asthma: No Cancer: No Cardiac Disorders: Yes ("HEART BEATS FAST OCCAS") CVA: Yes (2012-NO RESIDUAL) COPD: No CHF: No Dementia: No Diabetes: Yes Dialysis: Yes () GI Disorders: No Disorders: No HTN: Yes Hypercholesterolemia: No Liver Disease: No Seizures: No Thyroid Disease: Yes Other medical history: WOUND CARE LEFT UPPER CHEST - Surgical History Abdominal Surgery: No Appendectomy: Yes Cardiac Surgery: No Cholecystectomy: No Lung Surgery: No Neurologic Surgery: No Orthopedic Surgery: No - Suicide/Smoking/Psychosocial Hx Smoking Status: No Smoking History: Unknown if ever smoked Have you smoked in the past 12 months: No Number of Cigarettes Smoked Daily: 0 Hx Alcohol Use: No Drug/Substance Use Hx: No Substance Use Type: None Hx Substance Use Treatment: No Review of Systems - Review of Systems Able to Perform ROS?: Yes Comments:: 11/18/17 11:19 GENERAL/CONSTITUTIONAL: No fever or chills. No weakness. HEAD, EYES, EARS, NOSE AND THROAT: No change in vision. No ear pain or discharge. No sore throat. CARDIOVASCULAR: No chest pain, palpitations, or lightheadedness. RESPIRATORY: Positive for shortness of breath. No cough, wheezing, or hemoptysis. GASTROINTESTINAL: No nausea, vomiting, diarrhea, constipation, or abdominal pain. GENITOURINARY: No dysuria, frequency, hematuria, or change in urination. MUSCULOSKELETAL: No joint or muscle swelling or pain. No neck or back pain. SKIN: No rash or lesions. NEUROLOGIC: No headache, numbness, tingling, focal weakness, loss of consciousness, or change in strength/sensation. ENDOCRINE: No increased thirst. No abnormal weight change. HEMATOLOGIC/LYMPHATIC: No anemia, easy bleeding, or history of blood clots. ALLERGIC/IMMUNOLOGIC: No hives or skin allergy. Is the patient limited Citizen Of [place] proficient: No *Physical Exam - Vital Signs Last Vital Signs Temp Pulse Resp BP Pulse Ox 98.8 F 71 22 145/76 99 11/18/17 09:15 11/18/17 09:15 11/18/17 09:15 11/18/17 09:15 11/18/17 09:15 - Physical Exam Comments: 11/18/17 11:22 GENERAL: Well developed, well nourished. Awake and alert. No acute distress. HEENT: Normocephalic, atraumatic. Hearing grossly normal. Moist mucous membranes. PERRLA, EOMI. No conjunctival pallor. Sclera are non-icteric. NECK: Supple. Full ROM. No JVD. CARDIOVASCULAR: Irregularly irregular rate and rhythm. No murmurs, rubs, or gallops. PULMONARY: No evidence of respiratory distress. Lungs clear to auscultation bilaterally. No wheezing, rales or rhonchi. ABDOMINAL: Soft. Non-tender. Non-distended. No rebound or guarding. GENITOURINARY: No CVA tenderness bilaterally. MUSCULOSKELETAL: Dialysis catheter placed on L anterior chest. Normal range of motion at all joints. No bony deformities or tenderness. EXTREMITIES: No cyanosis. No clubbing. No edema. No calf tenderness or swelling. SKIN: Warm and dry. Normal capillary refill. No rashes. No jaundice. NEUROLOGICAL: Alert, awake, appropriate. Cranial nerves 2-12 grossly intact. Normal speech. Gait is normal without ataxia. PSYCHIATRIC: Cooperative. Good eye contact. Appropriate mood and affect. Heart Score/ECG Review #1 General ECG Interpretation: Sinus Rhythm, Normal Rate, Normal Intervals, No acute ischemic changes Compared to previous ECG there are: No significant change 11/18/17 11:26 NSR vent rate 70 [place] 268 QRS 100 QTc 452 No STD or FRANCISCO T wave flattening in lateral leads, changed from prior ED Treatment Course - LABORATORY CBC & Chemistry Diagram: 11/18/17 10:30 11/18/17 10:30 - RADIOLOGY Radiology Studies Ordered: Category Date Time Status CHEST X-RAY PORTABLE* [RAD] Stat Radiology 11/18/17 09:31 Ordered Medical Decision Making - Medical Decision Making 11/18/17 11:27 The patient is a 67F with a PMH of DM, ESRD, and anemia who presents to the ER with SOB. PCP aware of pt and vascular will put a dialysis catheter in patient. Will order labs and EKG, which shows T wave flattening in lateral leads. Pending trop. WBC of 14. Will admit to tele. *DC/Admit/Observation/Transfer Diagnosis at time of Disposition: Shortness of breath - Discharge Dispostion Condition at time of disposition: Guarded Decision to Admit order: Yes - Referrals - Patient Instructions - Post Discharge Activity
--- NOTE | 2017-11-18 09:47 | PDOC ---
Attending Attestation - Resident Resident Name: AramNelson - HPI HPI: 11/18/17 10:13 Pt presents to the ED complaining of shortness of breath that began this AM. Complains of orthopnea. Patient usually has MATHEWS, but today has SOB at rest. Patient presented to a regular appointment with Dr. Nick and was referred here because of her shortness of breath. As per Arias Villarreal and Sandoval, patient has a recent history of a positive stress test and is pending cardiac catheterization. - Physicial Exam PE: 11/18/17 10:28 Agree with resident exam. PAtient is alert and in no acute distress. Lungs are clear b/l. Heart has regular rate and rhythm with no murmur, rubs or gallops. - Medical Decision Making 11/18/17 10:29 Pt presents to the ED complaining of shortness of breath. History of CAD, ESRD , HTN. Differential includes CHF exacerbation, ACS, less likely PNA or PE. Will check labs and and CXR, admit to medicine for continued management.
[2017-11-18 10:41] LABS: BASO % 0.6 % (0-2.0); EOS % 0.8 % (0-4.5); HEMATOCRIT 37.6 % (32.4-45.2); LYMPH % 13.5 % (8-40); MCH 24.8 pg (25.7-33.7); MCHC 31.8 g/dl (32.0-36.0); MEAN PLT VOLUME 8.4 fl (7.5-11.1); NEUT % 71.1 % (42.8-82.8); PLATELET COUNT 276 K/MM3 (134-434); RBC 4.82 M/mm3 (3.60-5.2); RDW 19.7 % (11.6-15.6); WHITE BLOOD COUNT 14.9 K/mm3 (4.0-10.0)
[2017-11-18 10:48] LABS: INR 1.75 (0.83-1.09); PROTHROMBIN TIME (PATIENT) 19.8 SEC (9.7-13.0)
[2017-11-18 11:03] LABS: CHLORIDE 104 mmol/L (98-107); POTASSIUM 4.1 mmol/L (3.5-5.1); SODIUM 137 mmol/L (136-145)
[2017-11-18 11:39] LABS: ALK PHOS 118 U/L (45-117); ANION GAP 14 MMOL/L (8-16); BILIRUBIN,TOTAL 0.8 mg/dL (0.2-1.0); BLOOD UREA NITROGEN 31 mg/dL (7-18); CALCIUM 8.9 mg/dL (8.5-10.1); CO2 19 mmol/L (21-32); CREATININE 5.1 mg/dL (0.55-1.3); GLUCOSE,RANDOM 136 mg/dL (74-106); N-TERMINAL BNP 37510.83 pg/ml (5-125); SGOT/AST 17 U/L (15-37); SGPT/ALT 12 U/L (13-61); TOT PROT 7.9 g/dl (6.4-8.2)
--- NOTE | 2017-11-18 11:46 | CON.CARD ---
Consult Consult Specialty:: cardio Referred by:: kee - History of Present Illness Chief Complaint: sob History of Present Illness: 67 yo F with sob since this am. has chronic arthritis and CTS in L hand. strained to open a window that was stuck few days ago--since then L hand and wrist hurting more and more swollen. was awake in bed at 4:30 this morning due to pain in the hand. suddenly began feeling sob. this continued for a few hours, including when was seated in dr thomas's office for outpt visit today--referred to ER. her pulse reportedly appeared irregular to nurse in dr thomas's office but pt had no palpitations. she's had no cp/tightness at all. no cp or sob with walking outside recently either. has felt "chills" since wrist swelled up--feels cold but no shivering or sweats. no fevers. denies sore throat, phlegm/cough. has had no increase in her usual pre and post-dialysis wts she says (183-185 lbs ). no leg swelling. 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: CVA (transient speech loss and left hemiparesis in 2013) Cardio/Vascular: Yes: CHF (end diastolic), HTN, Hyperlipdemia Pulmonary: Yes: Asthma, Pneumonia, Other (ILD) Gastrointestinal: Yes: Constipation, GERD Hepatobiliary: Yes: Hepatitis C Renal/: Yes: Renal Inusuff Musculoskeletal: Yes: Osteoarthritis Endocrine: Yes: Diabetes Mellitus (diabetic retinopathy ( treated ) and neuropathy), Hyperthyroidism (Graves Disease with thyroid nodule), Other ( THYROID DISEASE) - Past Surgical History Past Surgical History: Yes: , Hysterectomy, Appendectomy, Colonoscopy - Alcohol/Substance Use Hx Alcohol Use: No History of Substance Use: reports: None - Smoking History Smoking history: Unknown if ever smoked Have you smoked in the past 12 months: No Aproximately how many cigarettes per day: 0 - Social History Usual Living Arrangement: Alone ADL: Independent History of Recent Travel: No Home Medications - Allergies Allergies/Adverse Reactions: Allergies Allergy/AdvReac Type Severity Reaction Status Date / Time nut - unspecified [nut] Allergy "HIVES,THROAT Verified 11/18/17 09:15 CLOSES" Fish Containing Products AdvReac Swelling Verified 11/18/17 09:15 - Home Medications Home Medications: Ambulatory Orders Diltiazem [Cardizem -] 90 mg PO TID 07/10/16 Escitalopram Oxalate [Lexapro -] 5 mg PO DAILY 07/10/16 Metoprolol Succinate [Toprol XL -] 100 mg PO HS 07/10/16 Clonidine HCl 1 tab PO TID 04/01/17 Apixaban [Eliquis] 5 mg PO BID 11/18/17 Atorvastatin Calcium 20 mg PO HS 11/18/17 Furosemide [Lasix] 80 mg PO DAILY 11/18/17 Methimazole [Tapazole] 5 mg PO DAILY 11/18/17 Family Disease History - Family Disease History Family Disease History: Diabetes: Mother (alive 91), Brother Review of Systems - Review of Systems Constitutional: reports: Chills. denies: Fever Eyes: denies: Eye Pain HENT: denies: Nasal Congestion Neck: denies: Stiffness Cardiovascular: denies: Palpitations Respiratory: denies: Orthopnea, PND Gastrointestinal: denies: Diarrhea, Rectal Bleeding Genitourinary: denies: Burning, Hematuria Musculoskeletal: denies: Muscle Pain Integumentary: denies: Rash Neurological: denies: Numbness, Seizure, Syncope Endocrine: denies: Excessive Sweating Hematology/Lymphatic: denies: Excessive Bleeding Vital Signs: Vital Signs Temperature 99.6 F 11/18/17 11:29 Pulse Rate 71 11/18/17 11:29 Respiratory Rate 18 11/18/17 11:29 Blood Pressure 152/56 11/18/17 11:29 O2 Sat by Pulse Oximetry (%) 100 11/18/17 11:29 Constitutional: Yes: Well Nourished, No Distress Eyes: No: Sclera Icterus HENT: No: Nasal Congestion Neck: No: Decreased ROM Respiratory: Yes: CTA Bilaterally. No: Accessory Muscle Use, Rales, Wheezes Gastrointestinal: Yes: Normal Bowel Sounds. No: Distention, Hepatomegaly, Palpable Mass, Tenderness Cardiovascular: Yes: Regular Rate and Rhythm JVD: No Carotid Bruit: No PMI: Non-Displaced Heart Sounds: Yes: S1, S2. No: Gallop Murmur: No: Systolic Murmur, Diastolic Murmur Musculoskeletal: Yes: Joint Swelling (L hand/wrist), Other (No kyphosis) Extremities: No: Cool, Cyanosis Edema: No Peripheral Pulses: 2+ Left Carotid, 2+ Right Carotid, 2+ Left Doralis Pedis, 2+ Right Dorsalis Pedis Integumentary: No: Jaundice Neurological: Yes: Alert, Oriented (x3) Psychiatric: No: Agitated - Other Data Labs, Other Data: CBC, BMP 11/18/17 10:30 INR, PTT INR 1.75 (0.83-1.09) H 11/18/17 10:30 Laboratory Tests 06/23/16 06/23/16 11/18/17 10:42 10:42 10:30 WBC 11.0 H 14.9 H Hgb 11.3 12.0 Plt Count 219 276 D Sodium 139 Potassium 4.2 Carbon Dioxide 25 BUN 20 H Creatinine 2.6 H AST 33 D ALT 23 D Creatine Kinase 47 Troponin I 0.08 H B-Natriuretic Peptide TSH 2.74 D 11/18/17 10:30 WBC Hgb Plt Count Sodium 137 Potassium 4.1 Carbon Dioxide 19 L BUN 31 H Creatinine 5.1 H AST 17 ALT 12 L Creatine Kinase 57 Troponin I 0.13 H B-Natriuretic Peptide 66581.83 H TSH Assessment/Plan ECG: NSR, normal axis. no path q's. nonsp TWAs V4-6, I/avL. no change (vs 06/2017 ) CXR reviewed: blunted angles ? small eff.s; no vasc redistribution. mildly increased interstitial markings diffusely unchanged vs prior. no change in cardiac size/countour MPI 07/19 (marjan): no isch STs, pt in afib. mid-AW ischemia, distal IW ischemia. fixed apical defect. EF 30%, no TID Echo 07/19: moderate LVE, mildly decr'd LVEF (45%), GLOBAL. nl RV size, mild RV hypo. mild LAE. mod MR. mild pHTN (RVSP 42). nl LAP. SOB: -currently no signs of UA or ACS: ECG with no ischemia, trop 0.1 (prior baselines range 0.1-0.3, likely related to chronic chf) -trend troponins -CXR without CHF findings. BNP unhelpful in HD pt. -mild WBC count, normal temp, cxr not suspicious for PNA or for acute ILDz process. -doubt sepsis/bacteremia, but pt at risk with longstanding indwelling permacath and uncontrolled DM. atypical chills reported--check blood cultures -low suspicion for PE given pt on eliquis, not hypoxic. -? sx was due to paroxymal AF (apparently irregular pulse check at dr thomas's nurse today), though she did not have these sx's when in afib at time of stress test few months ago (initial AF dx)--monitor telemetry CAD: -2018 stress test with ischemia in RCA and also LAD distributions. -she has been asymptomatic (walks with walker on street at baseline) -cont home med regimen: AC (no ASA), statin, bb -plan is for cath. timing of cath has been deferred until 3 things are completed : (a) she had significant wt loss, with undetectable TSH and required thyroid fxn optimization with endocrine--reportedly stable per last f/u there; (b) referred for FOC for colon Ca screen (prior microcytic anemia in hospital for which w/u was deferred due to active comorbid problems, now resolved)--to be scheduled with dr malik; (c) pt has not yet had AVF surgery and has been dialyzed through permacath for many months. per dr thomas, this needs to be done prior to PCIs and obligatory uninterrupted DAPT regimen. -if remains with no ecg changes and troponins stable, will continue to defer cath until above procedures are completed chronic syst/diast CHF (mixed), moderate MR, mild pHTN: -pt with known mild to moderate vs moderate decrease in LVEF. ? isch CMP ( inferoposterior WMAs worse on prior hosp echo review here), ? nonischemic ( uncontrolled DM long time, global appearance of hypokinesis on recent imaging) -has been clinically euvolemic for long time, with volume status stable with HD mgmt -continues to appear euvolemic here, outpt wt trend (pre and post dialysis wts) stable. -no audible MR murmur, echo images not concerning for severe MR previously ( serial studies) parox AF: -pt incidentally noted to be in afib during stress test earlier this year -no recurrence since -on good AVN louis regimen for PSVT prophylaxis--continue same -on Eliquis--cont same PSVT: -frequent episodes of very rapid SVT during prior hospital stays, whenever meds are interrupted -tolerating home metoprolol and diltiazem regimen long time, with good arrhythmia control--same meds HTN: -stable overall -same meds ESRD on HD: -dialysis per renal DM: -per dr sweet pulyennifer fibrosis: -hospitalized here previously with unexplained interstitial lung dz picture, no specific dx made on bronch--treated empirically with steroids with good resolution; -per pmd h/o posterior circulation CVA: -on AC now (Aggrenox stopped), statin hyperthyroidism: -on methimazole, sees dr chiu for endo
--- NOTE | 2017-11-18 12:43 | HP ---
Admitting History and Physical - Primary Care Physician PCP: Rebecca Villarreal S - Admission Chief Complaint: SOB; L hand pain History of Present Illness: The patient is a 67F with a PMH of diabetes, HTN, ESRD, iron deficiency anemia who presents to the ER sent from wound clinic for evaluation. The patient states that she woke up this morning feeling shortness of breath. No CP. No cough no fever. She has not had this before. She denies any MATHEWS, orthopnea, CP, palpitations, lightheadedness, and swelling. The patient states that she was being seen by Dr. Nick, her wound care doctor, and he recommended her to go to the ER for evaluation. She is on HD 3d/w (e, , sat) and she did not miss any recent HD. She was seen by cardiology dr Arriaza and had stress test which was abNL, supposed to have cardiac cath soon. Also seen recemntly by GI and ewas supposed to have colonoscopy (alejandra for weight loss). Said 2 days ago tried to open a window at home and after she did she had severe pain in her L wrist, is swollen, can not move it b/o pain. 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: CVA (transient speech loss and left hemiparesis in 2012) Cardiovascular: Yes: CHF (end diastolic), HTN, Hyperlipdemia Pulmonary: Yes: Asthma, Pneumonia, Other (ILD) Gastrointestinal: Yes: Constipation, GERD Hepatobiliary: Yes: Hepatitis C Renal/: Yes: Renal Inusuff Heme/Onc: Yes: Anemia Musculoskeletal: Yes: Osteoarthritis Endocrine: Yes: Diabetes Mellitus (diabetic retinopathy ( treated ) and neuropathy), Hyperthyroidism (Graves Disease with thyroid nodule), Other ( THYROID DISEASE) - Past Surgical History Past Surgical History: Yes: , Hysterectomy, Appendectomy, Colonoscopy - Smoking History Smoking history: Unknown if ever smoked Have you smoked in the past 12 months: No Aproximately how many cigarettes per day: 0 - Alcohol/Substance Use Hx Alcohol Use: No History of Substance Use: reports: None - Social History Usual Living Arrangement: Yes: With Child ADL: Independent History of Recent Travel: No Home Medications - Allergies Allergies/Adverse Reactions: Allergies Allergy/AdvReac Type Severity Reaction Status Date / Time nut - unspecified [nut] Allergy "HIVES,THROAT Verified 11/18/17 09:15 CLOSES" Fish Containing Products AdvReac Swelling Verified 11/18/17 09:15 - Home Medications Home Medications: Ambulatory Orders Diltiazem [Cardizem -] 90 mg PO TID 07/10/16 Escitalopram Oxalate [Lexapro -] 5 mg PO DAILY 07/10/16 Metoprolol Succinate [Toprol XL -] 100 mg PO HS 07/10/16 Clonidine HCl 1 tab PO TID 04/01/17 Apixaban [Eliquis] 5 mg PO BID 11/18/17 Atorvastatin Calcium 20 mg PO HS 11/18/17 Furosemide [Lasix] 80 mg PO DAILY 11/18/17 Methimazole [Tapazole] 5 mg PO DAILY 11/18/17 Family Disease History - Family Disease History Family Disease History: Diabetes: Mother (alive 91), Brother Review of Systems - Review of Systems Constitutional: denies: Chills, Fever, Lethargy Eyes: denies: Blurred Vision, Double Vision, Eye Pain HENT: denies: Ear Pain, Epistaxis Neck: denies: Stiffness, Tenderness Cardiovascular: reports: Shortness of Breath. denies: Chest Pain, Edema, Palpitations Respiratory: reports: Orthopnea, SOB, SOB on Exertion. denies: Cough, Hemoptysis, Wheezing Genitourinary: denies: Dysuria, Flank Pain, Frequency Musculoskeletal: reports: Extremity Pain (L wrist pain unable to move). denies : Back Pain Integumentary: denies: Rash, Wound Neurological: reports: Weakness (general). denies: Headache, Pre-Existing Deficit Endocrine: denies: Increased Hunger, Increased Thirst Hematology/Lymphatic: denies: Easily Bruised, Excessive Bleeding, Swollen Glands Psychiatric: denies: Anxiety, Depression, Hallucinations, Suicidal Physical Examination Vital Signs: Vital Signs Temperature 99.6 F 11/18/17 11:29 Pulse Rate 71 11/18/17 11:29 Respiratory Rate 18 11/18/17 11:29 Blood Pressure 152/56 11/18/17 11:29 O2 Sat by Pulse Oximetry (%) 100 11/18/17 11:29 Constitutional: Yes: No Distress, Anxious Eyes: Yes: Conjunctiva Clear, EOM Intact HENT: Yes: Atraumatic Neck: Yes: Supple Cardiovascular: Yes: Regular Rate and Rhythm Respiratory: Yes: Diminished, Other (L UPPER CHEST CATH FOR HD) Gastrointestinal: Yes: Soft. No: Distention Renal/: No: CVA Tenderness - Left, CVA Tenderness - Right Musculoskeletal: Yes: Joint Swelling (L wrist and hand). No: Joint Stiffness Extremities: No: Cold, Cool, Cyanosis Edema: No Integumentary: No: Rash, Venous Stasis Changes Neurological: Yes: WNL, Alert, Oriented ...Motor Strength: WNL Psychiatric: Yes: WNL, Alert, Oriented. No: Agitated, Suicidal Ideation Labs: CBC, BMP 11/18/17 10:30 11/18/17 10:30 Imaging - Results Chest X-ray: Report Reviewed Other: Report Reviewed Assessment/Plan The patient is a 67F with a PMH of diabetes, HTN, ESRD, iron deficiency anemia who presents to the ER sent from wound clinic for evaluation. for shortness of breath h/o ASHD and abNL stress test; also L wrist pain and swelling r/o tendon injury admit to telemetry CE, cardiology eval; BP and HR control; might need extra dialysis session will d.w renal HD per renal ortho eval for L. wrist check xrays GI colonoscopy? pt would like to have it while in hospital; will d/w GI & cardio prognosis guarded d/w pt and staff; d/w pt's family at bedside d/w cardio and vascular sx hansa morales time 75 min
[2017-11-18 13:54] VITALS: BMI 28.4
--- NOTE | 2017-11-18 14:32 | EKG ---
Test Reason : Blood Pressure : / mmHG Vent. Rate : 067 BPM Atrial Rate : 067 BPM P-R Int : 270 ms QRS Dur : 092 ms QT Int : 414 ms P-R-T Axes : 074 -29 105 degrees QTc Int : 437 ms POOR DATA QUALITY, INTERPRETATION MAY BE ADVERSELY AFFECTED SINUS RHYTHM WITH 1ST DEGREE A-V BLOCK MINIMAL VOLTAGE CRITERIA FOR LVH, MAY BE NORMAL VARIANT T WAVE ABNORMALITY, CONSIDER LATERAL ISCHEMIA ABNORMAL ECG WHEN COMPARED WITH ECG OF 08-JUN-2017 19:23, PREMATURE VENTRICULAR COMPLEXES ARE NO LONGER PRESENT Confirmed by NAOMI WRIGHT MD ([id number]) on 11/18/2017 2:32:13 PM Referred By: Confirmed By:NAOMI WRIGHT MD
[2017-11-18] MEDS: dilTIAZem HCL 30 MG TABLET (FP) PO SCH ×2 (15:15→22:55)
[2017-11-18] MEDS ORDERED: IBUPROFEN 400 MG TABLET (FP) PO PRN (19:52)
[2017-11-18] MEDS ORDERED: ACETAMINOPHEN 325 MG TABLET (FP) PO PRN (19:52)
[2017-11-18] MEDS: APIXABAN 5 MG TABLET PO SCH (22:55)
[2017-11-18] MEDS: ATORVASTATIN CA 20 MG TABLET (FP) PO SCH (22:55)
[2017-11-18] MEDS: cloNIDine HCL 0.1 MG TABLET PO SCH (22:56)
[2017-11-19] MEDS: dilTIAZem HCL 30 MG TABLET (FP) PO SCH ×3 (05:34→22:10)
[2017-11-19] MEDS ORDERED: SODIUM CHLORIDE 250 ML IV PRN (07:45)
--- NOTE | 2017-11-19 07:54 | PN ---
Progress Note, Physician Chief Complaint: in bed NAD feels better less SOB; dyalised per renal consults appreciated L wrist still painful; called hand surgery ortho. - Current Medication List Current Medications: Active Medications Acetaminophen (Tylenol -) 650 mg PO Q6H PRN PRN Reason: L ARM WRIST PAIN Last Admin: 11/18/17 22:56 Dose: 650 mg Apixaban (Eliquis -) 5 mg PO BID [facility] Last Admin: 11/18/17 22:55 Dose: 5 mg Atorvastatin Calcium (Lipitor -) 20 mg PO HS [facility] Last Admin: 11/18/17 22:55 Dose: 20 mg Clonidine (Catapres -) 0.1 mg PO BID [facility] Last Admin: 11/18/17 22:56 Dose: 0.1 mg Diltiazem HCl (Cardizem -) 90 mg PO TID [facility] Last Admin: 11/19/17 05:34 Dose: 90 mg Escitalopram Oxalate (Lexapro -) 5 mg PO DAILY [facility] Furosemide (Lasix -) 80 mg PO DAILY [facility] Sodium Chloride (Normal Saline -) 250 mls @ 3,000 mls/hr IV PRN PRN PRN Reason: Hypotension during Dialysis Stop: 11/20/17 07:45 Ibuprofen (Motrin -) 400 mg PO Q12H PRN PRN Reason: PAIN LEVEL 1 - 3 Methimazole (Tapazole -) 5 mg PO DAILY@0930 [facility] Metoprolol Succinate (Toprol Xl -) 100 mg PO DAILY [facility] - Objective Vital Signs: Vital Signs Temperature 98.2 F 11/19/17 05:37 Pulse Rate 74 11/19/17 05:37 Respiratory Rate 20 11/19/17 05:37 Blood Pressure 158/84 11/19/17 05:37 O2 Sat by Pulse Oximetry (%) 99 11/18/17 21:00 Constitutional: Yes: No Distress, Calm Eyes: Yes: Conjunctiva Clear HENT: Yes: Atraumatic Neck: Yes: Supple Cardiovascular: Yes: Regular Rate and Rhythm Respiratory: Yes: Diminished Gastrointestinal: Yes: Soft. No: Tenderness Genitourinary: No: CVA Tenderness - Left, CVA Tenderness - Right Musculoskeletal: No: Joint Stiffness, Joint Swelling Extremities: Yes: Cyanosis. No: Cold, Cool Edema: No Integumentary: No: Rash, Venous Stasis Changes Neurological: Yes: WNL, Alert, Oriented ...Motor Strength: WNL Psychiatric: Yes: WNL, Alert, Oriented. No: Agitated, Suicidal Ideation Labs: CBC, BMP 11/18/17 10:30 11/18/17 10:30 INR, PTT INR 1.75 (0.83-1.09) H 11/18/17 10:30 - ....Imaging Other: Report Reviewed Assessment/Plan The patient is a 67F with a PMH of diabetes, HTN, ESRD, thyroid ds, iron deficiency anemia and weight loss admitted from wound clinic for evaluation. for shortness of breath h/o ASHD and abNL stress test; also L wrist pain and swelling r/o tendon injury admit to telemetry CE, cardiology eval; BP and HR control; dialysis per renal ortho eval for L. wrist pain r/o tendon rupture. vascular sx f/u for AVF when cleared by cardiology GI colonoscopy? for weight loss w/u; pt would like to have it while in hospital ; will d/w GI & cardio prognosis guarded d/w pt and staff; d/w pt's family at bedside t time 40 min
[2017-11-19] MEDS ORDERED: PT OWN MED DRAWER 7, Y5N ONE (09:20)
[2017-11-19] MEDS: FUROSEMIDE 40 MG TABLET (FP) PO SCH (09:46)
[2017-11-19] MEDS: ESCITALOPRAM OXALATE 10 MG TABLET (FP) PO SCH (09:48)
[2017-11-19] MEDS: APIXABAN 5 MG TABLET PO SCH (09:49)
[2017-11-19] MEDS: METHIMAZOLE 5 MG TABLET (FP) PO SCH (09:49)
--- NOTE | 2017-11-19 09:51 | PN ---
Progress Note (short form) - Note Progress Note: cc: SOB S: Current Medications Acetaminophen (Tylenol -) 650 mg PO Q6H PRN PRN Reason: L ARM WRIST PAIN Last Admin: 11/18/17 22:56 Dose: 650 mg Apixaban (Eliquis -) 5 mg PO BID [facility] Last Admin: 11/18/17 22:55 Dose: 5 mg Atorvastatin Calcium (Lipitor -) 20 mg PO HS [facility] Last Admin: 11/18/17 22:55 Dose: 20 mg Clonidine (Catapres -) 0.1 mg PO BID [facility] Last Admin: 11/18/17 22:56 Dose: 0.1 mg Diltiazem HCl (Cardizem -) 90 mg PO TID [facility] Last Admin: 11/19/17 05:34 Dose: 90 mg Escitalopram Oxalate (Lexapro -) 5 mg PO DAILY [facility] Furosemide (Lasix -) 80 mg PO DAILY [facility] Sodium Chloride (Normal Saline -) 250 mls @ 3,000 mls/hr IV PRN PRN PRN Reason: Hypotension during Dialysis Stop: 11/20/17 07:45 Ibuprofen (Motrin -) 400 mg PO Q12H PRN PRN Reason: PAIN LEVEL 1 - 3 Methimazole (Tapazole -) 5 mg PO DAILY@0930 [facility] Metoprolol Succinate (Toprol Xl -) 100 mg PO DAILY [facility] Vital Signs Period Temp Pulse Resp BP Sys/Chavarria Pulse Ox Last 24 Hr 98.1 F-99.6 F 70-93 18-20 147-164/56-105 99-100 Constitutional: Yes: Well Nourished, No Distress Eyes: No: Sclera Icterus HENT: No: Nasal Congestion Neck: No: Decreased ROM Respiratory: Yes: CTA Bilaterally. No: Accessory Muscle Use, Rales, Wheezes Gastrointestinal: Yes: Normal Bowel Sounds. No: Distention, Hepatomegaly, Palpable Mass, Tenderness Cardiovascular: Yes: Regular Rate and Rhythm JVD: No Carotid Bruit: No PMI: Non-Displaced Heart Sounds: Yes: S1, S2. No: Gallop Murmur: No: Systolic Murmur, Diastolic Murmur Musculoskeletal: Yes: Joint Swelling (L hand/wrist), Other (No kyphosis) Extremities: No: Cool, Cyanosis Edema: No Peripheral Pulses: 2+ Left Carotid, 2+ Right Carotid, 2+ Left Doralis Pedis, 2+ Right Dorsalis Pedis Integumentary: No: Jaundice Neurological: Yes: Alert, Oriented (x3) Psychiatric: No: Agitated Assessment/Plan ECG: NSR, normal axis. no path q's. nonsp TWAs V4-6, I/avL. no change (vs 06/2017 ) CXR reviewed: blunted angles ? small eff.s; no vasc redistribution. mildly increased interstitial markings diffusely unchanged vs prior. no change in cardiac size/countour MPI 07/19 (marjan): no isch STs, pt in afib. mid-AW ischemia, distal IW ischemia. fixed apical defect. EF 30%, no TID Echo 07/19: moderate LVE, mildly decr'd LVEF (45%), GLOBAL. nl RV size, mild RV hypo. mild LAE. mod MR. mild pHTN (RVSP 42). nl LAP. SOB: -less likely ACS, ECG with no ischemia, trop 0.1 (prior baselines range 0.1-0.3 , likely related to chronic chf) -trend troponins, ordered not drawn yet this morning -CXR without CHF findings. BNP unhelpful in HD pt. -mild WBC count, normal temp, cxr not suspicious for PNA or for acute ILDz process; bcx pending, infectious workup per pmd -low suspicion for PE given pt on eliquis, not hypoxic. -possible sx was due to paroxymal AF (apparently irregular pulse check at dr thomas's nurse today), though she did not have these sx's when in afib at time of stress test few months ago (initial AF dx)--monitor telemetry CAD: -2018 stress test with ischemia in RCA and also LAD distributions. -she has been asymptomatic (walks with walker on street at baseline) -cont home med regimen: AC (no ASA), statin, bb -per Dr. Arriaza: plan is for cath. timing of cath has been deferred until 3 things are completed: (a) she had significant wt loss, with undetectable TSH and required thyroid fxn optimization with endocrine--reportedly stable per last f/u there; (b) referred for FOC for colon Ca screen (prior microcytic anemia in hospital for which w/u was deferred due to active comorbid problems, now resolved)--to be scheduled with dr malik; (c) pt has not yet had AVF surgery and has been dialyzed through permacath for many months. per dr thomas, this needs to be done prior to PCIs and obligatory uninterrupted DAPT regimen. -if remains with no ecg changes and troponins stable, will continue to defer cath until above procedures are completed chronic syst/diast CHF (mixed), moderate MR, mild pHTN: -pt with known mild to moderate vs moderate decrease in LVEF. ? isch CMP ( inferoposterior WMAs worse on prior hosp echo review here), ? nonischemic ( uncontrolled DM long time, global appearance of hypokinesis on recent imaging) -has been clinically euvolemic for long time, with volume status stable with HD mgmt -continues to appear euvolemic here, outpt wt trend (pre and post dialysis wts) stable. -no audible MR murmur, echo images not concerning for severe MR previously ( serial studies) parox AF: -pt incidentally noted to be in afib during stress test earlier this year -no recurrence since -on good AVN louis regimen for PSVT prophylaxis--continue same -on Eliquis--cont same PSVT: -frequent episodes of very rapid SVT during prior hospital stays, whenever meds are interrupted -tolerating home metoprolol and diltiazem regimen long time, with good arrhythmia control--same meds HTN: -stable overall -same meds ESRD on HD: -dialysis per renal DM: -per dr sweet pulyennifer fibrosis: -hospitalized here previously with unexplained interstitial lung dz picture, no specific dx made on bronch--treated empirically with steroids with good resolution; -per pmd h/o posterior circulation CVA: -on AC now (Aggrenox stopped), statin hyperthyroidism: -on methimazole, sees dr chiu for endo
[2017-11-19 10:54] LABS: HEMATOCRIT 34.9 % (32.4-45.2); HEMOGLOBIN 11.1 GM/dL (10.7-15.3); MCH 24.7 pg (25.7-33.7); MCHC 31.9 g/dl (32.0-36.0); MEAN CELL VOLUME 77.3 fl (80-96); MEAN PLT VOLUME 9.3 fl (7.5-11.1); PLATELET COUNT 289 K/MM3 (134-434); RBC 4.52 M/mm3 (3.60-5.2); RDW 19.6 % (11.6-15.6); WHITE BLOOD COUNT 15.6 K/mm3 (4.0-10.0)
[2017-11-19 11:24] LABS: POTASSIUM 3.6 mmol/L (3.5-5.1)
[2017-11-19 11:49] LABS: ANION GAP 13 MMOL/L (8-16); BLOOD UREA NITROGEN 40 mg/dL (7-18); CALCIUM 8.5 mg/dL (8.5-10.1); CHLORIDE 105 mmol/L (98-107); CO2 19 mmol/L (21-32); CREATININE 5.5 mg/dL (0.55-1.3); GLUCOSE,RANDOM 152 mg/dL (74-106); SODIUM 137 mmol/L (136-145)
[2017-11-19 12:27] LABS: PHOSPHOROUS 3.7 mg/dL (2.5-4.9)
--- NOTE | 2017-11-19 12:53 | CONSULT ---
Consult - text type - Consultation Consultation Note: Renal Consult for ESRD on HD This is a 67 year old woman with hx of ESRD on HD, Hypertension, and anemia presented with palpitations. Pt was at Dr. Miller office for AV access creation. Pt last had dialysis on Saturday w/o complication. No SOB, cp, abd pain, N/V/D. Pt currently getting dialysis. PMhx: as above Allergies: NKDA Family Hx: NC Social Hx: No T/A/D ROS: as per HPI, all other pertinent ros negative Home Medications Medication Instructions Recorded Diltiazem [Cardizem -] 90 mg PO TID 07/10/16 Escitalopram Oxalate [Lexapro -] 5 mg PO DAILY 07/10/16 Metoprolol Succinate [Toprol XL -] 100 mg PO HS 07/10/16 Clonidine HCl 1 tab PO TID 04/01/17 Apixaban [Eliquis] 5 mg PO BID 11/18/17 Atorvastatin Calcium 20 mg PO HS 11/18/17 Furosemide [Lasix] 80 mg PO DAILY 11/18/17 Methimazole [Tapazole] 5 mg PO DAILY 11/18/17 Vital Signs Temperature 98.2 F 11/19/17 10:15 Pulse Rate 50 L 11/19/17 12:20 Respiratory Rate 18 11/19/17 12:20 Blood Pressure 151/86 11/19/17 12:20 O2 Sat by Pulse Oximetry (%) 99 11/18/17 21:00 Intake & Output 11/16/17 11/17/17 11/18/17 11/19/17 23:59 23:59 23:59 23:59 Intake Total 120 240 Balance 120 240 Weight 82.27 kg 82.372 kg NAD awake and alert neck supple No JVD RRR CTA, no rales or wheeze soft NT/ND No LE edema Left IJ tunneled HD catheter CBC, BMP 11/19/17 10:15 11/19/17 10:15 Current Medications Acetaminophen (Tylenol -) 650 mg PO Q6H PRN PRN Reason: L ARM WRIST PAIN Last Admin: 11/18/17 22:56 Dose: 650 mg Apixaban (Eliquis -) 5 mg PO BID [facility] Last Admin: 11/19/17 09:49 Dose: 5 mg Atorvastatin Calcium (Lipitor -) [address] [facility] Last Admin: 11/18/17 22:55 Dose: 20 mg Clonidine (Catapres -) 0.1 mg PO BID [facility] Last Admin: 11/18/17 22:56 Dose: 0.1 mg Diltiazem HCl (Cardizem -) 90 mg PO TID [facility] Last Admin: 11/19/17 05:34 Dose: 90 mg Escitalopram Oxalate (Lexapro -) 5 mg PO DAILY [facility] Last Admin: 11/19/17 09:48 Dose: 5 mg Furosemide (Lasix -) 80 mg PO DAILY [facility] Last Admin: 11/19/17 09:46 Dose: 80 mg Sodium Chloride (Normal Saline -) 250 mls @ 3,000 mls/hr IV PRN PRN PRN Reason: Hypotension during Dialysis Stop: 11/20/17 07:45 Ibuprofen (Motrin -) 400 mg PO Q12H PRN PRN Reason: PAIN LEVEL 1 - 3 Methimazole (Tapazole -) 5 mg PO DAILY@0930 [facility] Last Admin: 11/19/17 09:49 Dose: 5 mg Metoprolol Succinate (Toprol Xl -) 100 mg PO DAILY [facility] 67 year old woman with hx of ESRD on HD, Hypertension, DM, and anemia presented with palpitations. #ESRD on HD #Hypertension #Metabolic acidosis #Renal Osteodystrophy Tolerating dialysis well today Continue Clonidine, Cardizem, Lasix d/c Ibuprofen Continue HD 3x weekly Cardiology follow up Thank you Will follow Jon Paz DO
[2017-11-19] MEDS: cloNIDine HCL 0.1 MG TABLET PO SCH ×2 (14:41→22:10)
--- NOTE | 2017-11-19 15:21 | CON.GI ---
Consult Consult Specialty:: Gastroenterology Referred by:: Dr Villarreal Reason for Consultation:: Colonoscopy - History of Present Illness Chief Complaint: SOB History of Present Illness: 67F was referred to the ER from [facility] where she complained of dyspnea. She was found to be on EULOGIO and admitted. She is on Eliquis to atrial fibrillation and a propensity to clot off her AV fistulae and other dialysis accesses. She is followed by Dr Arriaza who plans to refer her for cardiac cath and stenting but only after she completes a thyroid evaluation and colon cancer screening. She denies any FH of colon cancer. She had a colonoscopy over 7 years ago but denies having had polyps removed. She has never had an EGD and denies any GI problems aside from a propensity to constipation. She does not recall being formally treated for HCV. 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) ...: No Musculoskeletal: Yes: Osteoarthritis Endocrine: Yes: Diabetes Mellitus (diabetic retinopathy ( treated ) and neuropathy), Hyperthyroidism (Graves Disease with thyroid nodule), Osteopenia, Other (THYROID DISEASE) - Past Surgical History Past Surgical History: Yes: Appendectomy, AV Fistula/Graft (LUE- has clotted off ), Colonoscopy (over 7 years ago but was normal), (x 3), Hysterectomy (TAHBSO for fibroids) - Alcohol/Substance Use Hx Alcohol Use: Yes (rare, on birthdays) History of Substance Use: reports: None - Smoking History Smoking history: Never smoked Have you smoked in the past 12 months: No Aproximately how many cigarettes per day: 0 - Social History Usual Living Arrangement: Alone () ADL: Independent 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 Place of : [facility] History of Recent Travel: No Home Medications - Allergies Allergies/Adverse Reactions: Allergies Allergy/AdvReac Type Severity Reaction Status Date / Time nut - unspecified [nut] Allergy "HIVES,THROAT Verified 11/18/17 09:15 CLOSES" Fish Containing Products AdvReac Swelling Verified 11/18/17 09:15 - Home Medications Home Medications: Ambulatory Orders Diltiazem [Cardizem -] 90 mg PO TID 07/10/16 Escitalopram Oxalate [Lexapro -] 5 mg PO DAILY 07/10/16 Metoprolol Succinate [Toprol XL -] 100 mg PO HS 07/10/16 Clonidine HCl 1 tab PO TID 04/01/17 Apixaban [Eliquis] 5 mg PO BID 11/18/17 Atorvastatin Calcium 20 mg PO HS 11/18/17 Furosemide [Lasix] 80 mg PO DAILY 11/18/17 Methimazole [Tapazole] 5 mg PO DAILY 11/18/17 Family Disease History - Family Disease History Family Disease History: Diabetes: Mother ( age 94), Brother, Other: Father ( in his 50s suddenly), Daughter (two daughters are IVDAs) Review of Systems - Review of Systems Constitutional: reports: Malaise Eyes: reports: No Symptoms HENT: reports: No Symptoms Neck: reports: No Symptoms Cardiovascular: reports: Palpitations, Shortness of Breath Respiratory: reports: Exercise Intolerance, SOB on Exertion Gastrointestinal: reports: Constipation Genitourinary: reports: No Symptoms Musculoskeletal: reports: Extremity Pain (straiined her wrist trying to pry open a window), Joint Pain Endocrine: reports: Intolerance to Heat, Unexplained Weight Loss Psychiatric: reports: No Symptoms Physical Exam-GI Vital Signs: Vital Signs Temperature 98.3 F 11/19/17 14:56 Pulse Rate 109 H 11/19/17 14:56 Respiratory Rate 20 11/19/17 14:56 Blood Pressure 127/70 11/19/17 14:56 O2 Sat by Pulse Oximetry (%) 100 11/19/17 09:00 CBC,CMP WBC 15.6 K/mm3 (4.0-10.0) H 11/19/17 10:15 RBC 4.52 M/mm3 (3.60-5.2) 11/19/17 10:15 Hgb 11.1 GM/dL (10.7-15.3) 11/19/17 10:15 Hct 34.9 % (32.4-45.2) 11/19/17 10:15 MCV 77.3 fl (80-96) L 11/19/17 10:15 MCH 24.7 pg (25.7-33.7) L 11/19/17 10:15 MCHC 31.9 g/dl (32.0-36.0) L 11/19/17 10:15 RDW 19.6 % (11.6-15.6) H 11/19/17 10:15 Plt Count 289 K/MM3 (134-434) 11/19/17 10:15 MPV 9.3 fl (7.5-11.1) D 11/19/17 10:15 Absolute Neuts (auto) 10.6 K/mm3 (1.5-8.0) H 11/18/17 10:30 Neutrophils % 71.1 % (42.8-82.8) D 11/18/17 10:30 Lymphocytes % 13.5 % (8-40) D 11/18/17 10:30 Monocytes % 14.0 % (3.8-10.2) H 11/18/17 10:30 Eosinophils % 0.8 % (0-4.5) 11/18/17 10:30 Basophils % 0.6 % (0-2.0) 11/18/17 10:30 Nucleated RBC % 0 % (0-0) 11/18/17 10:30 Sodium 137 mmol/L (136-145) 11/19/17 10:15 Potassium 3.6 mmol/L (3.5-5.1) 11/19/17 10:15 Chloride 105 mmol/L (98-107) 11/19/17 10:15 Carbon Dioxide 19 mmol/L (21-32) L 11/19/17 10:15 Anion Gap 13 MMOL/L (8-16) 11/19/17 10:15 BUN 40 mg/dL (7-18) H 11/19/17 10:15 Creatinine 5.5 mg/dL (0.55-1.3) H 11/19/17 10:15 Creat Clearance w eGFR 7.73 (>60) 11/19/17 10:15 Random Glucose 152 mg/dL (74-106) H 11/19/17 10:15 Calcium 8.5 mg/dL (8.5-10.1) 11/19/17 10:15 Phosphorus 3.7 mg/dL (2.5-4.9) 11/19/17 10:15 Total Bilirubin 0.8 mg/dL (0.2-1.0) 11/18/17 10:30 AST 17 U/L (15-37) 11/18/17 10:30 ALT 12 U/L (13-61) L 11/18/17 10:30 Alkaline Phosphatase 118 U/L (45-117) H 11/18/17 10:30 Creatine Kinase 57 IU/L (26-192) 11/19/17 10:15 Troponin I 0.14 ng/ml (0.00-0.05) H 11/19/17 10:15 B-Natriuretic Peptide 13871.83 pg/ml (5-125) H 11/18/17 10:30 Total Protein 7.9 g/dl (6.4-8.2) 11/18/17 10:30 Albumin 3.0 g/dl (3.4-5.0) L 11/18/17 10:30 Current Medications Generic Name Dose Route Start Last Admin Trade Name Freq PRN Reason Stop Dose Admin Acetaminophen 650 mg 11/18/17 19:52 11/18/17 22:56 Tylenol - PO 650 mg Q6H PRN Administration L ARM WRIST PAIN Apixaban 5 mg 11/18/17 22:00 11/19/17 09:49 Eliquis - PO 5 mg BID EMELINA Administration Atorvastatin Calcium 20 mg 11/18/17 22:00 11/18/17 22:55 Lipitor - PO 20 mg HS EMELINA Administration Clonidine 0.1 mg 11/18/17 22:00 11/19/17 14:41 Catapres - PO Not Given BID EMELINA Diltiazem HCl 90 mg 11/18/17 14:00 11/19/17 13:54 Cardizem - PO 90 mg TID EMELINA Administration Escitalopram Oxalate 5 mg 11/19/17 10:00 11/19/17 09:48 Lexapro - PO 5 mg DAILY EMELINA Administration Furosemide 80 mg 11/19/17 10:00 11/19/17 09:46 Lasix - PO 80 mg DAILY EMELINA Administration Sodium Chloride 250 mls @ 3,000 mls/hr 11/19/17 07:45 Normal Saline - IV 11/20/17 07:45 PRN PRN Hypotension during Dialysis Ibuprofen 400 mg 11/18/17 19:52 Motrin - PO Q12H PRN PAIN LEVEL 1 - 3 Methimazole 5 mg 11/19/17 09:30 11/19/17 09:49 Tapazole - PO 5 mg DAILY@0930 EMELINA Administration Metoprolol Succinate 100 mg 11/19/17 10:00 11/19/17 14:00 Toprol Xl - PO 100 mg DAILY EMELINA Administration Constitutional: Yes: Calm Eyes: Yes: Conjunctiva Clear HENT: Yes: Normocephalic Neck: Yes: Supple Cardiovascular: Yes: Tachycardia (> 150 bpm), Pulse Irregular, Other (left chest catheter) Respiratory: Yes: CTA Bilaterally Gastrointestinal Inspection: Yes: Scars (healed vertical suprapubic, RLQ and Pfannensteil incisions) ...Auscultate: Yes: Normoactive Bowel Sounds ...Palpate: Yes: Soft, Other (nontender) ...Percussion: Yes: Tympanitic ...Rectal Exam: Yes: Guaiac Negative (rectum is full of soft brown guaiac negative stool) Extremities: Yes: Other (clotted left antecubital AV fistula) Edema: No Peripheral Pulses WNL: Yes Neurological: Yes: Alert, Oriented Labs: CBC, BMP 11/19/17 10:15 11/19/17 10:15 INR, PTT INR 1.75 (0.83-1.09) H 11/18/17 10:30 Laboratory Tests 11/18/17 11/18/17 11/19/17 10:30 10:30 10:15 Hgb 12.0 11.1 B-Natriuretic Peptide 91710.83 H Hepatitis A Ab Total Hep Bs Antigen Hep Bs Antibody Hep B Core Total Ab Hep C Ab Diagnostic HCV RNA PCR w/Genot Rflx 11/19/17 11/19/17 10:15 10:15 Hgb B-Natriuretic Peptide Hepatitis A Ab Total Pending Hep Bs Antigen Pending Hep Bs Antibody Pending Hep B Core Total Ab Pending Hep C Ab Diagnostic Pending HCV RNA PCR w/Genot Rflx Pending Problem List - Problems (1) Screening for colon cancer Assessment/Plan: I agree that Barbra should have in hopsital preparation for colonoscopy given her propensity to EULOGIO , possibly in the face of persistent hyperthyroid state, ESRD, diabetes and active coronary disease that awaits cardiac catheterization and stenting. If the patient is cardiologically cleared a colonoscopy will be scheduled for 11/22. I have discussed colonoscopy in detail with Angela including the risks of cardiac arrest and arrhythmia, a recurrent CVA under anesthesia or as a result of interrupting Eliquis, and the risks of perforation and hemorrhage that could lead to surgery and transfusions. She has granted an informed consent. Eliquis will be stopped. Code(s): Z12.11 - ENCOUNTER FOR SCREENING FOR MALIGNANT NEOPLASM OF COLON (2) Atrial fibrillation with rapid ventricular response Code(s): I48.91 - UNSPECIFIED ATRIAL FIBRILLATION (3) Diabetes Code(s): E11.9 - TYPE 2 DIABETES MELLITUS WITHOUT COMPLICATIONS Qualifiers: Diabetes mellitus type: type 2 Diabetes mellitus complication status: with neurologic complications Diabetes mellitus complication detail: with autonomic neuropathy (4) Dialysis AV fistula malfunction Code(s): T82.590A - [facility] COMPL OF SURGICALLY CREATED ARTERIOVENOUS FISTULA, INIT (5) History of hepatitis C Assessment/Plan: I await the PCR and genotype. If positive then I have advised her to followup in our office to undertake a course of therapy. She denies IVDA or snorting cocaine.. Will order AFP, Fibrosure and liver sonogram Code(s): Z86.19 - PERSONAL HISTORY OF OTHER INFECTIOUS AND PARASITIC DISEASES (6) Hyperthyroidism Assessment/Plan: Will order T4,TSH Code(s): E05.90 - THYROTOXICOSIS, UNSP WITHOUT THYROTOXIC CRISIS OR STORM (7) SVT (supraventricular tachycardia) Code(s): I47.1 - SUPRAVENTRICULAR TACHYCARDIA (8) Constipation Assessment/Plan: Will start Miralax Code(s): K59.00 - CONSTIPATION, UNSPECIFIED (9) C. difficile colitis Assessment/Plan: had antibody in 03/20 but no toxins Code(s): A04.7 - ENTEROCOLITIS DUE TO CLOSTRIDIUM DIFFICILE * DO NOT USE *
--- NOTE | 2017-11-19 15:43 | PN ---
Progress Note (short form) - Note Progress Note: Pt seen and examined. She is a 67 year old female pt who 9 days ago tried to open a window that was stuck closed. She states she really pulled very hard, and it did not open. She states that she injured her left wrist and elbow at that time. She also states that it is improving. She has much improved range of motion of the left hand, fingers, thumb, wrist and elbow. PE Left elbow is stiff, she has intact flexion and extension but she can only flex to 95 degrees, extend to -10 degrees. + very tender over elbow globally. Full forearm pronation and supination without pain. Wrist has flexion to 25, and extension to 15 degrees. + mild to moderate swelling of the dorsal aspect of the left wrist +tender at 7/10 over the wrist. Hand is not swollen. Excellent and much improved range of motion of the left thumb and fingers , nontender. NVI Xrays Left elbow and wrist are normal, no obvious fractures, dislocations, or OA Imp 9 days s/p stretching injury/severe sprain of the left wrist and elbow. Rec Ice Elevation NSAIDS if possible Shoulder sling PRN Range of motion
--- NOTE | 2017-11-19 16:40 | PN ---
Progress Note (short form) - Note Progress Note: s: no cp sob dizzy; earlier today after HD was feeling anxious and had episode of svt and palps, now resolved o: Vital Signs Period Temp Pulse Resp BP Sys/Chavarria Pulse Ox Last 24 Hr 98.1 F-99.2 F 50-109 18-20 127-167/70-105 99-100 Constitutional: Yes: Well Nourished, No Distress Eyes: No: Sclera Icterus HENT: No: Nasal Congestion Respiratory: Yes: CTA Bilaterally. No: Accessory Muscle Use, Rales, Wheezes Gastrointestinal: Yes: Normal Bowel Sounds. No: Distention, Hepatomegaly, Palpable Mass, Tenderness Cardiovascular: Yes: Regular Rate and Rhythm JVD: No Heart Sounds: Yes: S1, S2. No: Gallop Murmur: No: Systolic Murmur, Diastolic Murmur Extremities: No: Cool, Cyanosis Edema: No Integumentary: No: Jaundice Neurological: Yes: Alert, Oriented (x3) Psychiatric: No: Agitated Current Medications Generic Name Dose Route Start Last Admin Trade Name Freq PRN Reason Stop Dose Admin Acetaminophen 650 mg 11/18/17 19:52 11/18/17 22:56 Tylenol - PO 650 mg Q6H PRN Administration L ARM WRIST PAIN Atorvastatin Calcium 20 mg 11/18/17 22:00 11/18/17 22:55 Lipitor - PO 20 mg HS EMELINA Administration Bisacodyl 20 mg 11/21/17 18:00 Dulcolax - PO 11/21/17 18:01 ONCE ONE Clonidine 0.1 mg 11/18/17 22:00 11/19/17 14:41 Catapres - PO Not Given BID EMELINA Diltiazem HCl 90 mg 11/18/17 14:00 11/19/17 13:54 Cardizem - PO 90 mg TID EMELINA Administration Escitalopram Oxalate 5 mg 11/19/17 10:00 11/19/17 09:48 Lexapro - PO 5 mg DAILY EMELINA Administration Furosemide 80 mg 11/19/17 10:00 11/19/17 09:46 Lasix - PO 80 mg DAILY EMELINA Administration Sodium Chloride 250 mls @ 3,000 mls/hr 11/19/17 07:45 Normal Saline - IV 11/20/17 07:45 PRN PRN Hypotension during Dialysis Ibuprofen 400 mg 11/18/17 19:52 Motrin - PO Q12H PRN PAIN LEVEL 1 - 3 Methimazole 5 mg 11/19/17 09:30 11/19/17 09:49 Tapazole - PO 5 mg DAILY@0930 EMELINA Administration Metoprolol Succinate 100 mg 11/19/17 10:00 11/19/17 14:00 Toprol Xl - PO 100 mg DAILY EMELINA Administration Polyethylene Glycol 17 gm 11/19/17 22:00 Miralax (For Daily Use) - PO BID EMELINA - Other Data Labs, Other Data: CBC, BMP 11/19/17 10:15 11/19/17 10:15 ECG: NSR, normal axis. no path q's. nonsp TWAs V4-6, I/avL. no change (vs 06/2017 ) CXR reviewed: blunted angles ? small eff.s; no vasc redistribution. mildly increased interstitial markings diffusely unchanged vs prior. no change in cardiac size/countour MPI 07/19 (marjan): no isch STs, pt in afib. mid-AW ischemia, distal IW ischemia. fixed apical defect. EF 30%, no TID Echo 07/19: moderate LVE, mildly decr'd LVEF (45%), GLOBAL. nl RV size, mild RV hypo. mild LAE. mod MR. mild pHTN (RVSP 42). nl LAP. tele: sr now, earlier had episode svt 170s a/p: SOB: -currently no signs of UA or ACS: ECG with no ischemia, trop 0.1 (prior baselines range 0.1-0.3, likely related to chronic chf) -trend troponins -CXR without CHF findings. BNP unhelpful in HD pt. -mild WBC count, normal temp, cxr not suspicious for PNA or for acute ILDz process. -doubt sepsis/bacteremia, but pt at risk with longstanding indwelling permacath and uncontrolled DM. atypical chills reported--check blood cultures -low suspicion for PE given pt on eliquis, not hypoxic. -? sx was due to paroxymal AF (apparently irregular pulse check at dr thomas's visit before admit), though she did not have these sx's when in afib at time of stress test few months ago (initial AF dx)--monitor telemetry CAD: -2018 stress test with ischemia in RCA and also LAD distributions. -she has been asymptomatic (walks with walker on street at baseline) -cont home med regimen: AC (no ASA), statin, bb -plan is for cath. timing of cath has been deferred until 3 things are completed : (a) she had significant wt loss, with undetectable TSH and required thyroid fxn optimization with endocrine--reportedly stable per last f/u there; (b) referred for FOC for colon Ca screen (prior microcytic anemia in hospital for which w/u was deferred due to active comorbid problems, now resolved)--to be scheduled with dr malik; (c) pt has not yet had AVF surgery and has been dialyzed through permacath for many months. per dr thomas, this needs to be done prior to PCIs and obligatory uninterrupted DAPT regimen. - will continue to defer cath until above procedures are completed chronic syst/diast CHF (mixed), moderate MR, mild pHTN: -pt with known mild to moderate vs moderate decrease in LVEF. ? isch CMP ( inferoposterior WMAs worse on prior hosp echo review here), ? nonischemic ( uncontrolled DM long time, global appearance of hypokinesis on recent imaging) -has been clinically euvolemic for long time, with volume status stable with HD mgmt -continues to appear euvolemic here, outpt wt trend (pre and post dialysis wts) stable. -no audible MR murmur, echo images not concerning for severe MR previously ( serial studies) parox AF: -pt incidentally noted to be in afib during stress test earlier this year -no recurrence since -on good AVN louis regimen for PSVT prophylaxis--continue same -on Eliquis PSVT: -frequent episodes of very rapid SVT during prior hospital stays, whenever meds are interrupted -tolerating home metoprolol and diltiazem regimen long time, with good arrhythmia control. Today had episode svt but was very anxious during HD and had not eaten. Currently in nsr and relaxed. Continue to monitor tele. HTN: -stable overall -same meds ESRD on HD: -dialysis per renal pulm fibrosis: -hospitalized here previously with unexplained interstitial lung dz picture, no specific dx made on bronch--treated empirically with steroids with good resolution; -per pmd h/o posterior circulation CVA: -on AC now (Aggrenox stopped), statin hyperthyroidism: -on methimazole, sees dr chiu for endo preop: -plan is for inpt colonoscopy (prior to having cardiac cath as above). Ok to hold eliquis temporarily, will start hep gtt instead. -colonoscopy planned for this frdiay, will observe on tele for now and if no sig svt episodes then would be cleared, monitor for now.
[2017-11-19] MEDS ORDERED: HEPARIN NA (PORCINE) 5,000 UNITS/ML 1ML VIAL IVPUSH PRN ×2 (16:41)
[2017-11-19] MEDS: HEPARIN SOD,PORK IN 0.45% NACL 25,000 UNITS/500 ML INFUS.BAG IVPB SCH (22:09)
[2017-11-19] MEDS: ATORVASTATIN CA 20 MG TABLET (FP) PO SCH (22:11)
[2017-11-19] MEDS: POLYETHYLENE GLYCOL 3350 119 GM BTL PO SCH (22:15)
[2017-11-20] MEDS: dilTIAZem HCL 30 MG TABLET (FP) PO SCH ×4 (05:43→21:31)
[2017-11-20 06:31] LABS: BASO % 0.8 % (0-2.0); EOS % 4.5 % (0-4.5); HEMATOCRIT 36.1 % (32.4-45.2); HEMOGLOBIN 11.5 GM/dL (10.7-15.3); LYMPH % 22.5 % (8-40); MCH 24.6 pg (25.7-33.7); MCHC 31.9 g/dl (32.0-36.0); MEAN CELL VOLUME 77.2 fl (80-96); MEAN PLT VOLUME 8.9 fl (7.5-11.1); NEUT % 61.2 % (42.8-82.8); PLATELET COUNT 330 K/MM3 (134-434); RBC 4.68 M/mm3 (3.60-5.2); RDW 20.2 % (11.6-15.6); WHITE BLOOD COUNT 15.9 K/mm3 (4.0-10.0)
--- NOTE | 2017-11-20 06:47 | PN ---
Progress Note, Physician Chief Complaint: in bed grand daughter at bedside; no SOB; less hand pain consults appreciated and d/w pt - Current Medication List Current Medications: Active Medications Acetaminophen (Tylenol -) 650 mg PO Q6H PRN PRN Reason: L ARM WRIST PAIN Last Admin: 11/18/17 22:56 Dose: 650 mg Atorvastatin Calcium (Lipitor -) 20 mg PO HS [facility] Last Admin: 11/19/17 22:11 Dose: 20 mg Bisacodyl (Dulcolax -) 20 mg PO ONCE ONE Stop: 11/21/17 18:01 Clonidine (Catapres -) 0.1 mg PO BID [facility] Last Admin: 11/19/17 22:10 Dose: 0.1 mg Diltiazem HCl (Cardizem -) 90 mg PO TID [facility] Last Admin: 11/20/17 05:55 Dose: Not Given Escitalopram Oxalate (Lexapro -) 5 mg PO DAILY [facility] Last Admin: 11/19/17 09:48 Dose: 5 mg Furosemide (Lasix -) 80 mg PO DAILY [facility] Last Admin: 11/19/17 09:46 Dose: 80 mg Heparin Sodium (Porcine) (Heparin -) 1,000 unit IVPUSH PRN PRN PRN Reason: Heparin Heparin Sodium (Porcine) (Heparin -) 5,000 unit IVPUSH PRN PRN PRN Reason: Heparin Sodium Chloride (Normal Saline -) 250 mls @ 3,000 mls/hr IV PRN PRN PRN Reason: Hypotension during Dialysis Stop: 11/20/17 07:45 HEPARIN SOD,PORK IN 0.45% NACL (Heparin-1/2ns 25,000 Units/500) 25,000 units in 500 mls @ 20 mls/hr IVPB TITR [facility]; Protocol Last Admin: 11/19/17 22:09 Dose: 1,000 units/hr, 20 mls/hr Ibuprofen (Motrin -) 400 mg PO Q12H PRN PRN Reason: PAIN LEVEL 1 - 3 Methimazole (Tapazole -) 5 mg PO DAILY@0930 [facility] Last Admin: 11/19/17 09:49 Dose: 5 mg Metoprolol Succinate (Toprol Xl -) 100 mg PO DAILY [facility] Last Admin: 11/19/17 14:00 Dose: 100 mg Polyethylene Glycol (Miralax (For Daily Use) -) 17 gm PO BID [facility] Last Admin: 11/19/17 22:15 Dose: Not Given - Objective Vital Signs: Vital Signs Temperature 98.0 F 11/20/17 05:55 Pulse Rate 55 L 11/20/17 05:55 Respiratory Rate 20 11/20/17 05:55 Blood Pressure 140/74 11/20/17 05:55 O2 Sat by Pulse Oximetry (%) 99 11/19/17 20:57 Constitutional: Yes: No Distress, Calm Eyes: Yes: Conjunctiva Clear HENT: Yes: Atraumatic Neck: Yes: Supple Cardiovascular: Yes: Regular Rate and Rhythm Respiratory: Yes: CTA Bilaterally Gastrointestinal: Yes: Soft. No: Tenderness Genitourinary: No: CVA Tenderness - Left, CVA Tenderness - Right Musculoskeletal: No: Joint Stiffness, Joint Swelling Extremities: No: Cold, Cool, Cyanosis Edema: No Integumentary: No: Rash, Venous Stasis Changes Neurological: Yes: WNL, Alert, Oriented ...Motor Strength: WNL Psychiatric: Yes: WNL, Alert, Oriented. No: Agitated Labs: CBC, BMP 11/20/17 06:00 INR, PTT INR 1.75 (0.83-1.09) H 11/18/17 10:30 - ....Imaging Other: Report Reviewed Assessment/Plan The patient is a 67F with a PMH of diabetes, HTN, ESRD, thyroid ds, iron deficiency anemia and weight loss admitted from wound clinic for evaluation. for shortness of breath h/o ASHD and abNL stress test; also L wrist pain and swelling r/o tendon injury admitted to telemetry CE, cardiology eval; BP and HR control; dialysis per renal ortho eval for L. wrist pain r/o tendon rupture. vascular sx f/u for AVF when cleared by cardiology GI colonoscopy? for weight loss w/u if cleared by cardiology; pt will have it in 2 days (to start prep in am). prognosis guarded d/w pt and staff; d/w pt's family at bedside
[2017-11-20 07:22] LABS: CHLORIDE 102 mmol/L (98-107); POTASSIUM 3.5 mmol/L (3.5-5.1); SODIUM 140 mmol/L (136-145)
[2017-11-20 08:07] LABS: HBSAG SCREEN Negative (Negative); HEP B CORE AB, TOT Negative (Negative)
--- NOTE | 2017-11-20 09:23 | PN ---
Progress Note (short form) - Note Progress Note: s: feels well. no chest pain, palps, dyspnea, orthopnea, PND o: Vital Signs Period Temp Pulse Resp BP Sys/Chavarria Pulse Ox Last 24 Hr 98.0 F-98.6 F 50-109 18-20 127-167/70-97 99 Constitutional: Yes: Well Nourished, No Distress Eyes: No: Sclera Icterus HENT: No: Nasal Congestion Respiratory: Yes: CTA Bilaterally. No: Accessory Muscle Use, Rales, Wheezes Gastrointestinal: Yes: Normal Bowel Sounds. No: Distention, Hepatomegaly, Palpable Mass, Tenderness Cardiovascular: Yes: Regular Rate and Rhythm JVD: No Heart Sounds: Yes: S1, S2. No: Gallop Murmur: No: Systolic Murmur, Diastolic Murmur Extremities: No: Cool, Cyanosis Edema: No Integumentary: No: Jaundice Neurological: Yes: Alert, Oriented (x3) Psychiatric: No: Agitated Current Medications Acetaminophen (Tylenol -) 650 mg PO Q6H PRN PRN Reason: L ARM WRIST PAIN Last Admin: 11/18/17 22:56 Dose: 650 mg Atorvastatin Calcium (Lipitor -) 20 mg PO HS [facility] Last Admin: 11/19/17 22:11 Dose: 20 mg Bisacodyl (Dulcolax -) 20 mg PO ONCE ONE Stop: 11/21/17 18:01 Clonidine (Catapres -) 0.1 mg PO BID [facility] Last Admin: 11/19/17 22:10 Dose: 0.1 mg Diltiazem HCl (Cardizem -) 90 mg PO TID [facility] Last Admin: 11/20/17 05:55 Dose: Not Given Escitalopram Oxalate (Lexapro -) 5 mg PO DAILY [facility] Last Admin: 11/19/17 09:48 Dose: 5 mg Furosemide (Lasix -) 80 mg PO DAILY [facility] Last Admin: 11/19/17 09:46 Dose: 80 mg Heparin Sodium (Porcine) (Heparin -) 1,000 unit IVPUSH PRN PRN PRN Reason: Heparin Heparin Sodium (Porcine) (Heparin -) 5,000 unit IVPUSH PRN PRN PRN Reason: Heparin Sodium Chloride (Normal Saline -) 250 mls @ 3,000 mls/hr IV PRN PRN PRN Reason: Hypotension during Dialysis Stop: 11/20/17 07:45 HEPARIN SOD,PORK IN 0.45% NACL (Heparin-1/2ns 25,000 Units/500) 25,000 units in 500 mls @ 20 mls/hr IVPB TITR [facility]; Protocol Last Admin: 11/19/17 22:09 Dose: 1,000 units/hr, 20 mls/hr Ibuprofen (Motrin -) 400 mg PO Q12H PRN PRN Reason: PAIN LEVEL 1 - 3 Methimazole (Tapazole -) 5 mg PO DAILY@0930 [facility] Last Admin: 11/19/17 09:49 Dose: 5 mg Metoprolol Succinate (Toprol Xl -) 100 mg PO DAILY [facility] Last Admin: 11/19/17 14:00 Dose: 100 mg Polyethylene Glycol (Miralax (For Daily Use) -) 17 gm PO BID [facility] Last Admin: 11/19/17 22:15 Dose: Not Given ECG: NSR, normal axis. no path q's. nonsp TWAs V4-6, I/avL. no change (vs 06/2017 ) CXR reviewed: blunted angles ? small eff.s; no vasc redistribution. mildly increased interstitial markings diffusely unchanged vs prior. no change in cardiac size/countour MPI 07/19 (marjan): no isch STs, pt in afib. mid-AW ischemia, distal IW ischemia. fixed apical defect. EF 30%, no TID Echo 07/19: moderate LVE, mildly decr'd LVEF (45%), GLOBAL. nl RV size, mild RV hypo. mild LAE. mod MR. mild pHTN (RVSP 42). nl LAP. tele: sr now, earlier had episode svt 170s a/p: Preprocedural evaluation for colonoscopy - plan per Dr. Morley 11/22 - planned for inpatient colo prior to cath as below - patient is asymptomatic, euvolemic - holding eliquis, on heparin gtt - will observe on tele for now and if no sig svt episodes then would be cleared , monitor for now SOB: - resolved - unlikely ACS, ECG with no ischemia, trop 0.12->0.13, flat trend,mildly elevated, less consistent with ACS -CXR without CHF findings. BNP unhelpful in HD pt. -mild WBC count, normal temp, cxr not suspicious for PNA or for acute ILDz process. -doubt sepsis/bacteremia, but pt at risk with longstanding indwelling permacath and uncontrolled DM. atypical chills reported--check blood cultures -low suspicion for PE given pt on eliquis, not hypoxic. -? sx was due to paroxymal AF (apparently irregular pulse check at dr thomas's visit before admit), though she did not have these sx's when in afib at time of stress test few months ago (initial AF dx)--monitor telemetry CAD: -2018 stress test with ischemia in RCA and also LAD distributions. -she has been asymptomatic (walks with walker on street at baseline) -cont home med regimen: AC (no ASA), statin, bb -Per Dr. Arriaza: plan is for cath. timing of cath has been deferred until 3 things are completed: (a) she had significant wt loss, with undetectable TSH and required thyroid fxn optimization with endocrine--reportedly stable per last f/u there; (b) referred for FOC for colon Ca screen (prior microcytic anemia in hospital for which w/u was deferred due to active comorbid problems, now resolved)--to be scheduled with dr malik; (c) pt has not yet had AVF surgery and has been dialyzed through permacath for many months. per dr thomas, this needs to be done prior to PCIs and obligatory uninterrupted DAPT regimen. - will continue to defer cath until above procedures are completed chronic syst/diast CHF (mixed), moderate MR, mild pHTN: -pt with known mild to moderate vs moderate decrease in LVEF. ? isch CMP ( inferoposterior WMAs worse on prior hosp echo review here), ? nonischemic ( uncontrolled DM long time, global appearance of hypokinesis on recent imaging) -continues to appear euvolemic here, outpt wt trend (pre and post dialysis wts) stable. -no audible MR murmur, echo images not concerning for severe MR previously ( serial studies) parox AF: -pt incidentally noted to be in afib during stress test earlier this year -no recurrence since -on good AVN louis regimen for PSVT prophylaxis--continue same -holding eliquis prior to colonoscopy, on heparin gtt PSVT: -frequent episodes of very rapid SVT during prior hospital stays, whenever meds are interrupted -tolerating home metoprolol and diltiazem regimen long time, with good arrhythmia control. Today had episode svt but was very anxious during HD and had not eaten. Currently in nsr and relaxed. Continue to monitor tele. HTN: -stable overall -same meds ESRD on HD: -dialysis per renal pulm fibrosis: -hospitalized here previously with unexplained interstitial lung dz picture, no specific dx made on bronch--treated empirically with steroids with good resolution; -per pmd h/o posterior circulation CVA: -on AC now (Aggrenox stopped), statin hyperthyroidism: -on methimazole, sees dr chiu for endo
[2017-11-20] MEDS ORDERED: PT OWN MED DRAWER 7, Y5N ONE (09:39)
[2017-11-20] MEDS: FUROSEMIDE 40 MG TABLET (FP) PO SCH (09:54)
[2017-11-20] MEDS: cloNIDine HCL 0.1 MG TABLET PO SCH ×2 (09:54→21:31)
[2017-11-20] MEDS: METHIMAZOLE 5 MG TABLET (FP) PO SCH (09:54)
[2017-11-20] MEDS: ESCITALOPRAM OXALATE 10 MG TABLET (FP) PO SCH (09:55)
[2017-11-20] MEDS: POLYETHYLENE GLYCOL 3350 119 GM BTL PO SCH ×2 (09:55→21:31)
--- NOTE | 2017-11-20 11:13 | PN ---
Progress Note (short form) - Note Progress Note: Ortho Pt seen and examined- feeling much better Selected Entries 11/20/17 05:55 Temperature 98.0 F Pulse Rate 55 L Respiratory 20 Rate Blood Pressure 140/74 decr pain, decr swelling, incr rom, nvi a/p Orthopedically stable ROM exercises f/u as needed d/w Dr. Contreras
--- NOTE | 2017-11-20 12:11 | PN ---
GI Progress Note Subjective: GI Note: Heartrate has slowed down. Angela is willing to proceed with colonoscopy. I discussed the case with Dr Hernandez yesterday who had no objections. I have asked Dr Jackson Webb to dialyze Angela early tomorrow so that she can start her Golytely prep earlier. - Objective Vital Signs: Vital Signs Temperature 98.0 F 11/20/17 05:55 Pulse Rate 55 L 11/20/17 05:55 Respiratory Rate 20 11/20/17 05:55 Blood Pressure 140/74 11/20/17 05:55 O2 Sat by Pulse Oximetry (%) 99 11/19/17 20:57 Laboratory Tests 11/19/17 11/19/17 11/19/17 10:15 10:15 10:15 WBC 15.6 H Hgb Free T4 (Dialysis) Hepatitis A Ab Total Negative Hep Bs Antigen Negative Hep Bs Antibody Reactive Hep B Core Total Ab Negative Hep C Ab Diagnostic Pending HCV RNA PCR w/Genot Rflx Pending 11/20/17 11/20/17 06:00 06:00 WBC 15.9 H Hgb 11.5 Free T4 (Dialysis) Pending Hepatitis A Ab Total Hep Bs Antigen Hep Bs Antibody Hep B Core Total Ab Hep C Ab Diagnostic HCV RNA PCR w/Genot Rflx Constitutional: No Distress ...Auscultate: Yes: Normoactive Bowel Sounds ...Palpate: Yes: Soft, Other (nontender) Labs: CBC, BMP 11/20/17 06:00 11/20/17 06:00 INR, PTT INR 1.75 (0.83-1.09) H 11/18/17 10:30 Problem List - Problems (1) Screening for colon cancer Assessment/Plan: For colonoscopy on 11/22 if medically stable. Eliquis has been stopped. Code(s): Z12.11 - ENCOUNTER FOR SCREENING FOR MALIGNANT NEOPLASM OF COLON (2) Atrial fibrillation with rapid ventricular response Code(s): I48.91 - UNSPECIFIED ATRIAL FIBRILLATION (3) Diabetes Code(s): E11.9 - TYPE 2 DIABETES MELLITUS WITHOUT COMPLICATIONS Qualifiers: Diabetes mellitus type: type 2 Diabetes mellitus complication status: with neurologic complications Diabetes mellitus complication detail: with autonomic neuropathy (4) Dialysis AV fistula malfunction Code(s): T82.590A - [facility] COMPL OF SURGICALLY CREATED ARTERIOVENOUS FISTULA, INIT (5) History of hepatitis C Code(s): Z86.19 - PERSONAL HISTORY OF OTHER INFECTIOUS AND PARASITIC DISEASES (6) Hyperthyroidism Code(s): E05.90 - THYROTOXICOSIS, UNSP WITHOUT THYROTOXIC CRISIS OR STORM (7) SVT (supraventricular tachycardia) Code(s): I47.1 - SUPRAVENTRICULAR TACHYCARDIA (8) Constipation Code(s): K59.00 - CONSTIPATION, UNSPECIFIED (9) C. difficile colitis Code(s): A04.7 - ENTEROCOLITIS DUE TO CLOSTRIDIUM DIFFICILE * DO NOT USE *
[2017-11-20] MEDS ORDERED: SODIUM CHLORIDE 250 ML IV PRN ×2 (13:51)
[2017-11-20 13:54] LABS: ALBUMIN 2.7 g/dl (3.4-5.0); ANION GAP 11 MMOL/L (8-16); BLOOD UREA NITROGEN 25 mg/dL (7-18); CALCIUM 8.1 mg/dL (8.5-10.1); CO2 26 mmol/L (21-32); GLUCOSE,RANDOM 72 mg/dL (74-106); SGPT/ALT 10 U/L (13-61)
[2017-11-20 14:06] LABS: ALK PHOS 101 U/L (45-117); BILIRUBIN,TOTAL 0.5 mg/dL (0.2-1); CREATININE 3.9 mg/dL (0.55-1.3); SGOT/AST 18 U/L (15-37); TOT PROT 7.4 g/dl (6.4-8.2)
[2017-11-20] MEDS: ATORVASTATIN CA 20 MG TABLET (FP) PO SCH (21:31)
[2017-11-20] MEDS: HEPARIN SOD,PORK IN 0.45% NACL 25,000 UNITS/500 ML INFUS.BAG IVPB SCH (22:56)
[2017-11-21] MEDS: dilTIAZem HCL 30 MG TABLET (FP) PO SCH ×3 (05:23→22:02)
[2017-11-21 07:45] LABS: HEMOGLOBIN 10.2 GM/dL (10.7-15.3); MCH 24.8 pg (25.7-33.7); MCHC 31.8 g/dl (32.0-36.0); MEAN PLT VOLUME 8.5 fl (7.5-11.1); PLATELET COUNT 336 K/MM3 (134-434); RDW 19.9 % (11.6-15.6); WHITE BLOOD COUNT 13.2 K/mm3 (4.0-10.0)
[2017-11-21 08:18] LABS: ANION GAP 9 MMOL/L (8-16); BLOOD UREA NITROGEN 30 mg/dL (7-18); CALCIUM 8.4 mg/dL (8.5-10.1); CHLORIDE 101 mmol/L (98-107); CO2 28 mmol/L (21-32); CREATININE 3.8 mg/dL (0.55-1.3); GLUCOSE,RANDOM 79 mg/dL (74-106); POTASSIUM 3.7 mmol/L (3.5-5.1); SODIUM 138 mmol/L (136-145)
[2017-11-21] MEDS ORDERED: PEG3350/SOD SULF,BICARB,CL/KCL 4,000 ML SOLN.RECON PO ONE (09:00)
--- NOTE | 2017-11-21 09:18 | PN ---
Progress Note, Physician Chief Complaint: feels OK no new c/o no SOB less hand pain started prep for colonoscopy and EGD - Current Medication List Current Medications: Active Medications Acetaminophen (Tylenol -) 650 mg PO Q6H PRN PRN Reason: L ARM WRIST PAIN Last Admin: 11/18/17 22:56 Dose: 650 mg Atorvastatin Calcium (Lipitor -) 20 mg PO HS [facility] Last Admin: 11/20/17 21:31 Dose: 20 mg Bisacodyl (Dulcolax -) 20 mg PO ONCE ONE Stop: 11/21/17 18:01 Clonidine (Catapres -) 0.1 mg PO BID [facility] Last Admin: 11/20/17 21:31 Dose: 0.1 mg Diltiazem HCl (Cardizem -) 90 mg PO TID [facility] Last Admin: 11/21/17 05:23 Dose: Not Given Escitalopram Oxalate (Lexapro -) 5 mg PO DAILY [facility] Last Admin: 11/20/17 09:55 Dose: 5 mg Furosemide (Lasix -) 80 mg PO DAILY [facility] Last Admin: 11/20/17 09:54 Dose: 80 mg Heparin Sodium (Porcine) (Heparin -) 1,000 unit IVPUSH PRN PRN PRN Reason: Heparin Heparin Sodium (Porcine) (Heparin -) 5,000 unit IVPUSH PRN PRN PRN Reason: Heparin HEPARIN SOD,PORK IN 0.45% NACL (Heparin-1/2ns 25,000 Units/500) 25,000 units in 500 mls @ 20 mls/hr IVPB TITR [facility]; Protocol Last Admin: 11/20/17 22:56 Dose: 800 units/hr, 16 mls/hr Sodium Chloride (Normal Saline -) 250 mls @ 3,000 mls/hr IV PRN PRN PRN Reason: Hypotension during Dialysis Stop: 11/21/17 13:51 Ibuprofen (Motrin -) 400 mg PO Q12H PRN PRN Reason: PAIN LEVEL 1 - 3 Methimazole (Tapazole -) 5 mg PO DAILY@0930 [facility] Last Admin: 11/20/17 09:54 Dose: 5 mg Metoprolol Succinate (Toprol Xl -) 100 mg PO DAILY [facility] Last Admin: 11/20/17 09:55 Dose: 100 mg Polyethylene Glycol (Miralax (For Daily Use) -) 17 gm PO BID [facility] Last Admin: 11/20/17 21:31 Dose: 17 gm - Objective Vital Signs: Vital Signs Temperature 98.2 F 11/21/17 06:55 Pulse Rate 54 L 11/21/17 09:00 Respiratory Rate 18 11/21/17 09:00 Blood Pressure 156/90 11/21/17 09:00 O2 Sat by Pulse Oximetry (%) 97 11/20/17 21:00 Constitutional: Yes: No Distress, Calm Eyes: Yes: Conjunctiva Clear HENT: Yes: Atraumatic Neck: Yes: Supple Cardiovascular: Yes: Regular Rate and Rhythm Respiratory: Yes: CTA Bilaterally Gastrointestinal: Yes: Soft. No: Tenderness Genitourinary: No: CVA Tenderness - Left, CVA Tenderness - Right Musculoskeletal: No: Joint Stiffness, Joint Swelling Extremities: No: Cold, Cool, Cyanosis Edema: No Integumentary: No: Erythema, Rash, Venous Stasis Changes Neurological: Yes: WNL, Alert, Oriented ...Motor Strength: WNL Psychiatric: Yes: WNL, Alert, Oriented. No: Agitated Labs: CBC, BMP 11/21/17 07:00 11/21/17 07:00 INR, PTT INR 1.75 (0.83-1.09) H 11/18/17 10:30 - ....Imaging Other: Report Reviewed Assessment/Plan The patient is a 67F with a PMH of diabetes, HTN, ESRD, thyroid ds, iron deficiency anemia and weight loss admitted from wound clinic for evaluation. for shortness of breath h/o ASHD and abNL stress test; also L wrist pain and swelling r/o tendon injury admitted to telemetry CE, cardiology eval; BP and HR control; dialysis per renal ortho f/u for L. wrist pain . vascular sx f/u for AVF when cleared by cardiology GI colonoscopy and EGD for weight loss w/u if cleared by cardiology; d/w pt and staff
[2017-11-21] MEDS: POLYETHYLENE GLYCOL 3350 119 GM BTL PO SCH ×3 (09:45→21:59)
--- NOTE | 2017-11-21 11:11 | PN ---
Progress Note (short form) - Note Progress Note: s: no cp sob dizzy palps o: Vital Signs Period Temp Pulse Resp BP Sys/Chavarria Pulse Ox Last 24 Hr 98.1 F-98.3 F 52-63 16-20 142-172/70-97 97 Constitutional: Yes: Well Nourished, No Distress Eyes: No: Sclera Icterus HENT: No: Nasal Congestion Respiratory: Yes: CTA Bilaterally. No: Accessory Muscle Use, Rales, Wheezes Gastrointestinal: Yes: Normal Bowel Sounds. No: Distention, Hepatomegaly, Palpable Mass, Tenderness Cardiovascular: Yes: Regular Rate and Rhythm JVD: No Heart Sounds: Yes: S1, S2. No: Gallop Murmur: No: Systolic Murmur, Diastolic Murmur Extremities: No: Cool, Cyanosis Edema: No Integumentary: No: Jaundice Neurological: Yes: Alert, Oriented (x3) Psychiatric: No: Agitated Current Medications Generic Name Dose Route Start Last Admin Trade Name Freq PRN Reason Stop Dose Admin Acetaminophen 650 mg 11/18/17 19:52 11/18/17 22:56 Tylenol - PO 650 mg Q6H PRN Administration L ARM WRIST PAIN Atorvastatin Calcium 20 mg 11/18/17 22:00 11/20/17 21:31 Lipitor - PO 20 mg HS [facility] Administration Bisacodyl 20 mg 11/21/17 18:00 Dulcolax - PO 11/21/17 18:01 ONCE ONE Clonidine 0.1 mg 11/18/17 22:00 11/20/17 21:31 Catapres - PO 0.1 mg BID [facility] Administration Diltiazem HCl 90 mg 11/18/17 14:00 11/21/17 05:23 Cardizem - PO Not Given TID [facility] Escitalopram Oxalate 5 mg 11/19/17 10:00 11/20/17 09:55 Lexapro - PO 5 mg DAILY [facility] Administration Furosemide 80 mg 11/19/17 10:00 11/20/17 09:54 Lasix - PO 80 mg DAILY [facility] Administration Heparin Sodium (Porcine) 1,000 unit 11/19/17 16:41 Heparin - IVPUSH PRN PRN Heparin Heparin Sodium (Porcine) 5,000 unit 11/19/17 16:41 Heparin - IVPUSH PRN PRN Heparin HEPARIN SOD,PORK IN 0.45% NACL 25,000 units in 500 mls @ 20 mls/hr 11/19/17 22 :00 11/21/17 08:50 Heparin-1/2ns 25,000 Units/500 IVPB 700 units/hr TITR [facility] 14 mls/hr Titration Protocol 1,000 UNITS/HR Sodium Chloride 250 mls @ 3,000 mls/hr 11/20/17 13:51 Normal Saline - IV 11/21/17 13:51 PRN PRN Hypotension during Dialysis Ibuprofen 400 mg 11/18/17 19:52 Motrin - PO Q12H PRN PAIN LEVEL 1 - 3 Methimazole 5 mg 11/19/17 09:30 11/20/17 09:54 Tapazole - PO 5 mg DAILY@0930 [facility] Administration Metoprolol Succinate 100 mg 11/19/17 10:00 11/20/17 09:55 Toprol Xl - PO 100 mg DAILY [facility] Administration Polyethylene Glycol 17 gm 11/19/17 22:00 11/21/17 09:45 Miralax (For Daily Use) - PO 17 gm BID [facility] Administration - Other Data Labs, Other Data: CBC, BMP 11/21/17 07:00 11/21/17 07:00 ECG: NSR, normal axis. no path q's. nonsp TWAs V4-6, I/avL. no change (vs 06/2017 ) CXR reviewed: blunted angles ? small eff.s; no vasc redistribution. mildly increased interstitial markings diffusely unchanged vs prior. no change in cardiac size/countour MPI 07/19 (marjan): no isch STs, pt in afib. mid-AW ischemia, distal IW ischemia. fixed apical defect. EF 30%, no TID Echo 07/19: moderate LVE, mildly decr'd LVEF (45%), GLOBAL. nl RV size, mild RV hypo. mild LAE. mod MR. mild pHTN (RVSP 42). nl LAP. tele: sr, no recent svt a/p: SOB: -currently no signs of UA or ACS: ECG with no ischemia, trop 0.1 (prior baselines range 0.1-0.3, likely related to chronic chf) -CXR without CHF findings. BNP unhelpful in HD pt. -mild WBC count, normal temp, cxr not suspicious for PNA or for acute ILDz process. -low suspicion for PE given pt on eliquis, not hypoxic. -? sx was due to paroxymal AF (apparently irregular pulse check at dr thomas's visit before admit), though she did not have these sx's when in afib at time of stress test few months ago (initial AF dx)--monitor telemetry CAD: -2018 stress test with ischemia in RCA and also LAD distributions. -she has been asymptomatic (walks with walker on street at baseline) -cont home med regimen: AC (no ASA), statin, bb -plan is for cath. timing of cath has been deferred until 3 things are completed : (a) she had significant wt loss, with undetectable TSH and required thyroid fxn optimization with endocrine--reportedly stable per last f/u there; (b) referred for FOC for colon Ca screen (prior microcytic anemia in hospital for which w/u was deferred due to active comorbid problems, now resolved)--to be scheduled with dr malik; (c) pt has not yet had AVF surgery and has been dialyzed through permacath for many months. per dr thomas, this needs to be done prior to PCIs and obligatory uninterrupted DAPT regimen. - will continue to defer cath until above procedures are completed chronic syst/diast CHF (mixed), moderate MR, mild pHTN: -pt with known mild to moderate vs moderate decrease in LVEF. ? isch CMP ( inferoposterior WMAs worse on prior hosp echo review here), ? nonischemic ( uncontrolled DM long time, global appearance of hypokinesis on recent imaging) -has been clinically euvolemic for long time, with volume status stable with HD mgmt -continues to appear euvolemic here, outpt wt trend (pre and post dialysis wts) stable. -no audible MR murmur, echo images not concerning for severe MR previously ( serial studies) parox AF: -pt incidentally noted to be in afib during stress test earlier this year -no recurrence since -on good AVN louis regimen for PSVT prophylaxis--continue same -on Eliquis PSVT: -frequent episodes of very rapid SVT during prior hospital stays, whenever meds are interrupted -tolerating home metoprolol and diltiazem regimen long time, with good arrhythmia control. HTN: -stable overall -same meds ESRD on HD: -dialysis per renal pulm fibrosis: -hospitalized here previously with unexplained interstitial lung dz picture, no specific dx made on bronch--treated empirically with steroids with good resolution; -per pmd h/o posterior circulation CVA: -on AC now (Aggrenox stopped), statin hyperthyroidism: -on methimazole, sees dr chiu for endo preop: -plan is for inpt colonoscopy tomorrow (prior to having cardiac cath as above). Ok to hold eliquis temporarily,cont hep gtt instead. -tele has been benign for past 48 hrs, no cardiac contraindications to planned FOC.
[2017-11-21] MEDS: ESCITALOPRAM OXALATE 10 MG TABLET (FP) PO SCH (12:22)
[2017-11-21] MEDS: FUROSEMIDE 40 MG TABLET (FP) PO SCH (12:22)
[2017-11-21] MEDS: cloNIDine HCL 0.1 MG TABLET PO SCH ×2 (12:23→22:02)
[2017-11-21] MEDS: METHIMAZOLE 5 MG TABLET (FP) PO SCH (12:23)
--- NOTE | 2017-11-21 14:13 | PN ---
Progress Note (short form) - Note Progress Note: Renal follow up for ESRD on HD Pt seen and examined at the bedside no acute complaints s/p dialysis earlier today with 3kg UF denies any sob, cp, abd pain Vital Signs Temperature 98.2 F 11/21/17 06:55 Pulse Rate 61 11/21/17 12:28 Respiratory Rate 16 11/21/17 12:28 Blood Pressure 171/105 11/21/17 12:28 O2 Sat by Pulse Oximetry (%) 97 11/21/17 10:00 Intake & Output 11/18/17 11/19/17 11/20/17 11/21/17 23:59 23:59 23:59 23:59 Intake Total 120 740 920 112 Balance 120 740 920 112 Weight 82.27 kg 82.372 kg 81.012 kg 82.735 kg NAD RRR CTA, no rales or wheeze soft NT/ND No LE edema Left IJ tunneled HD catheter CBC, BMP 11/21/17 07:00 11/21/17 07:00 Current Medications Acetaminophen (Tylenol -) 650 mg PO Q6H PRN PRN Reason: L ARM WRIST PAIN Last Admin: 11/18/17 22:56 Dose: 650 mg Atorvastatin Calcium (Lipitor -) 20 mg PO HS [facility] Last Admin: 11/20/17 21:31 Dose: 20 mg Bisacodyl (Dulcolax -) 20 mg PO ONCE ONE Stop: 11/21/17 18:01 Clonidine (Catapres -) 0.1 mg PO BID [facility] Last Admin: 11/21/17 12:23 Dose: 0.1 mg Diltiazem HCl (Cardizem -) 90 mg PO TID [facility] Last Admin: 11/21/17 05:23 Dose: Not Given Escitalopram Oxalate (Lexapro -) 5 mg PO DAILY [facility] Last Admin: 11/21/17 12:22 Dose: 5 mg Furosemide (Lasix -) 80 mg PO DAILY [facility] Last Admin: 11/21/17 12:22 Dose: 80 mg Heparin Sodium (Porcine) (Heparin -) 1,000 unit IVPUSH PRN PRN PRN Reason: Heparin Heparin Sodium (Porcine) (Heparin -) 5,000 unit IVPUSH PRN PRN PRN Reason: Heparin HEPARIN SOD,PORK IN 0.45% NACL (Heparin-1/2ns 25,000 Units/500) 25,000 units in 500 mls @ 20 mls/hr IVPB TITR [facility]; Protocol Last Titration: 11/21/17 08:50 Dose: 700 units/hr, 14 mls/hr Sodium Chloride (Normal Saline -) 250 mls @ 3,000 mls/hr IV PRN PRN PRN Reason: Hypotension during Dialysis Stop: 11/21/17 13:51 Methimazole (Tapazole -) 5 mg PO DAILY@0930 [facility] Last Admin: 11/21/17 12:23 Dose: 5 mg Metoprolol Succinate (Toprol Xl -) 100 mg PO DAILY [facility] Last Admin: 11/21/17 12:23 Dose: 100 mg Polyethylene Glycol (Miralax (For Daily Use) -) 17 gm PO BID [facility] Last Admin: 11/21/17 12:28 Dose: Not Given 67 year old woman with hx of ESRD on HD, Hypertension, DM, and anemia presented with palpitations. #ESRD on HD #Hypertension, BP above goal but did not get BP meds prior to HD #Metabolic acidosis (improved s/p dialysis) #Renal Osteodystrophy Tolerating dialysis well today for bowel prep for colonoscopy tomorrow Renal diet Trend electrolytes Trend BP s/p BP meds Low salt diet Thank you Will follow Jon Paz DO
[2017-11-21] MEDS ORDERED: BISACODYL 5 MG TABLET.DR (FP) PO ONE (18:00)
[2017-11-21] MEDS: ATORVASTATIN CA 20 MG TABLET (FP) PO SCH (22:02)
[2017-11-21] MEDS: HEPARIN SOD,PORK IN 0.45% NACL 25,000 UNITS/500 ML INFUS.BAG IVPB SCH (23:53)
[2017-11-22] MEDS: dilTIAZem HCL 30 MG TABLET (FP) PO SCH ×2 (07:02→16:00)
[2017-11-22] MEDS: METHIMAZOLE 5 MG TABLET (FP) PO SCH (09:30)
[2017-11-22] MEDS ORDERED: PT OWN MED DRAWER 7, Y5N ONE (09:33)
--- NOTE | 2017-11-22 09:51 | PN ---
Progress Note, Physician - Current Medication List Current Medications: Active Medications Acetaminophen (Tylenol -) 650 mg PO Q6H PRN PRN Reason: L ARM WRIST PAIN Last Admin: 11/18/17 22:56 Dose: 650 mg Atorvastatin Calcium (Lipitor -) 20 mg PO HS [facility] Last Admin: 11/21/17 22:02 Dose: 20 mg Clonidine (Catapres -) 0.1 mg PO BID [facility] Last Admin: 11/21/17 22:02 Dose: 0.1 mg Diltiazem HCl (Cardizem -) 90 mg PO TID [facility] Last Admin: 11/22/17 07:02 Dose: 90 mg Escitalopram Oxalate (Lexapro -) 5 mg PO DAILY [facility] Last Admin: 11/21/17 12:22 Dose: 5 mg Furosemide (Lasix -) 80 mg PO DAILY [facility] Last Admin: 11/21/17 12:22 Dose: 80 mg Heparin Sodium (Porcine) (Heparin -) 1,000 unit IVPUSH PRN PRN PRN Reason: Heparin Heparin Sodium (Porcine) (Heparin -) 5,000 unit IVPUSH PRN PRN PRN Reason: Heparin HEPARIN SOD,PORK IN 0.45% NACL (Heparin-1/2ns 25,000 Units/500) 25,000 units in 500 mls @ 20 mls/hr IVPB TITR [facility]; Protocol Last Admin: 11/21/17 23:53 Dose: 700 units/hr, 14 mls/hr Sodium Chloride (Normal Saline -) 250 mls @ 3,000 mls/hr IV PRN PRN PRN Reason: Hypotension during Dialysis Stop: 11/21/17 13:51 Methimazole (Tapazole -) 5 mg PO DAILY@0930 [facility] Last Admin: 11/21/17 12:23 Dose: 5 mg Metoprolol Succinate (Toprol Xl -) 100 mg PO DAILY [facility] Last Admin: 11/21/17 12:23 Dose: 100 mg Polyethylene Glycol (Miralax (For Daily Use) -) 17 gm PO BID [facility] Last Admin: 11/21/17 21:59 Dose: Not Given - Objective Vital Signs: Vital Signs Temperature 98.8 F 11/22/17 06:00 Pulse Rate 57 L 11/22/17 06:00 Respiratory Rate 18 11/22/17 06:00 Blood Pressure 142/66 11/22/17 06:00 O2 Sat by Pulse Oximetry (%) 98 11/21/17 21:00 Labs: CBC, BMP 11/21/17 07:00 11/21/17 07:00 INR, PTT INR 1.75 (0.83-1.09) H 11/18/17 10:30
[2017-11-22] MEDS: ESCITALOPRAM OXALATE 10 MG TABLET (FP) PO SCH (10:03)
[2017-11-22] MEDS: FUROSEMIDE 40 MG TABLET (FP) PO SCH (10:03)
[2017-11-22] MEDS: cloNIDine HCL 0.1 MG TABLET PO SCH (10:03)
[2017-11-22] MEDS: POLYETHYLENE GLYCOL 3350 119 GM BTL PO SCH (10:04)
--- NOTE | 2017-11-22 10:44 | PN ---
Progress Note (short form) - Note Progress Note: s: no cp sob dizzy palps o: Vital Signs Period Temp Pulse Resp BP Sys/Chavarria Pulse Ox Last 24 Hr 98.3 F-99.0 F 54-68 16-18 134-171/64-105 98 Constitutional: Yes: Well Nourished, No Distress Eyes: No: Sclera Icterus HENT: No: Nasal Congestion Respiratory: Yes: CTA Bilaterally. No: Accessory Muscle Use, Rales, Wheezes Gastrointestinal: Yes: Normal Bowel Sounds. No: Distention, Hepatomegaly, Palpable Mass, Tenderness Cardiovascular: Yes: Regular Rate and Rhythm JVD: No Heart Sounds: Yes: S1, S2. No: Gallop Murmur: No: Systolic Murmur, Diastolic Murmur Extremities: No: Cool, Cyanosis Edema: No Integumentary: No: Jaundice Neurological: Yes: Alert, Oriented (x3) Psychiatric: No: Agitated Current Medications Generic Name Dose Route Start Last Admin Trade Name Freq PRN Reason Stop Dose Admin Acetaminophen 650 mg 11/18/17 19:52 11/18/17 22:56 Tylenol - PO 650 mg Q6H PRN Administration L ARM WRIST PAIN Atorvastatin Calcium 20 mg 11/18/17 22:00 11/21/17 22:02 Lipitor - PO 20 mg HS EMELINA Administration Clonidine 0.1 mg 11/18/17 22:00 11/22/17 10:03 Catapres - PO 0.1 mg BID EMELINA Administration Diltiazem HCl 90 mg 11/18/17 14:00 11/22/17 07:02 Cardizem - PO 90 mg TID EMELINA Administration Escitalopram Oxalate 5 mg 11/19/17 10:00 11/22/17 10:03 Lexapro - PO 5 mg DAILY EMELINA Administration Furosemide 80 mg 11/19/17 10:00 11/22/17 10:03 Lasix - PO 80 mg DAILY EMELINA Administration Heparin Sodium (Porcine) 1,000 unit 11/19/17 16:41 Heparin - IVPUSH PRN PRN Heparin Heparin Sodium (Porcine) 5,000 unit 11/19/17 16:41 Heparin - IVPUSH PRN PRN Heparin HEPARIN SOD,PORK IN 0.45% NACL 25,000 units in 500 mls @ 20 mls/hr 11/19/17 22 :00 11/21/17 23:53 Heparin-1/2ns 25,000 Units/500 IVPB 700 units/hr TITR EMELINA 14 mls/hr Administration Protocol 1,000 UNITS/HR Sodium Chloride 250 mls @ 3,000 mls/hr 11/20/17 13:51 Normal Saline - IV 11/21/17 13:51 PRN PRN Hypotension during Dialysis Methimazole 5 mg 11/19/17 09:30 11/22/17 09:30 Tapazole - PO 5 mg DAILY@0930 EMELINA Administration Metoprolol Succinate 100 mg 11/19/17 10:00 11/22/17 10:03 Toprol Xl - PO 100 mg DAILY EMELINA Administration Polyethylene Glycol 17 gm 11/19/17 22:00 11/22/17 10:04 Miralax (For Daily Use) - PO Not Given BID EMELINA - Other Data Labs, Other Data: CBC, BMP 11/21/17 07:00 11/21/17 07:00 ECG: NSR, normal axis. no path q's. nonsp TWAs V4-6, I/avL. no change (vs 06/2017 ) CXR reviewed: blunted angles ? small eff.s; no vasc redistribution. mildly increased interstitial markings diffusely unchanged vs prior. no change in cardiac size/countour MPI 07/19 (marjan): no isch STs, pt in afib. mid-AW ischemia, distal IW ischemia. fixed apical defect. EF 30%, no TID Echo 07/19: moderate LVE, mildly decr'd LVEF (45%), GLOBAL. nl RV size, mild RV hypo. mild LAE. mod MR. mild pHTN (RVSP 42). nl LAP. tele: sr, no recent svt a/p: SOB: -currently no signs of UA or ACS: ECG with no ischemia, trop 0.1 (prior baselines range 0.1-0.3, likely related to chronic chf) -CXR without CHF findings. BNP unhelpful in HD pt. -mild WBC count, normal temp, cxr not suspicious for PNA or for acute ILDz process. -low suspicion for PE given pt on eliquis, not hypoxic. -? sx was due to paroxymal AF (apparently irregular pulse check at dr thomas's visit before admit), though she did not have these sx's when in afib at time of stress test few months ago (initial AF dx)--monitor telemetry CAD: -2018 stress test with ischemia in RCA and also LAD distributions. -she has been asymptomatic (walks with walker on street at baseline) -cont home med regimen: AC (no ASA), statin, bb -plan is for cath. timing of cath has been deferred until 3 things are completed : (a) she had significant wt loss, with undetectable TSH and required thyroid fxn optimization with endocrine--reportedly stable per last f/u there; (b) referred for FOC for colon Ca screen (prior microcytic anemia in hospital for which w/u was deferred due to active comorbid problems, now resolved)--to be scheduled with dr malik; (c) pt has not yet had AVF surgery and has been dialyzed through permacath for many months. per dr thomas, this needs to be done prior to PCIs and obligatory uninterrupted DAPT regimen. - will continue to defer cath until above procedures are completed chronic syst/diast CHF (mixed), moderate MR, mild pHTN: -pt with known mild to moderate vs moderate decrease in LVEF. ? isch CMP ( inferoposterior WMAs worse on prior hosp echo review here), ? nonischemic ( uncontrolled DM long time, global appearance of hypokinesis on recent imaging) -has been clinically euvolemic for long time, with volume status stable with HD mgmt -continues to appear euvolemic here, outpt wt trend (pre and post dialysis wts) stable. -no audible MR murmur, echo images not concerning for severe MR previously ( serial studies) parox AF: -pt incidentally noted to be in afib during stress test earlier this year -no recurrence since -on good AVN louis regimen for PSVT prophylaxis--continue same -on Eliquis PSVT: -frequent episodes of very rapid SVT during prior hospital stays, whenever meds are interrupted -tolerating home metoprolol and diltiazem regimen long time, with good arrhythmia control. HTN: -stable overall -same meds ESRD on HD: -dialysis per renal pulm fibrosis: -hospitalized here previously with unexplained interstitial lung dz picture, no specific dx made on bronch--treated empirically with steroids with good resolution; -per pmd h/o posterior circulation CVA: -on AC now (Aggrenox stopped), statin hyperthyroidism: -on methimazole, sees dr chiu for endo preop: -plan is for inpt colonoscopy tomorrow (prior to having cardiac cath as above). Ok to hold eliquis temporarily,cont hep gtt instead. -tele has been benign for past 48 hrs, no cardiac contraindications to planned FOC.
[2017-11-22] MEDS ORDERED: SODIUM CHLORIDE 250 ML IV PRN ×2 (11:04)
--- NOTE | 2017-11-22 13:25 | PN ---
Progress Note (short form) - Note Progress Note: GI Procedure NOte: Please see scanned colonoscopy report. No neoplasms found. Mild diverticulosis was noted. NO GI objections to discharge when otherwise medically stable. Advised followup in our office for treatment of her hepatitis C Problem List - Problems (1) Screening for colon cancer Code(s): Z12.11 - ENCOUNTER FOR SCREENING FOR MALIGNANT NEOPLASM OF COLON (2) Atrial fibrillation with rapid ventricular response Code(s): I48.91 - UNSPECIFIED ATRIAL FIBRILLATION (3) Diabetes Code(s): E11.9 - TYPE 2 DIABETES MELLITUS WITHOUT COMPLICATIONS Qualifiers: Diabetes mellitus type: type 2 Diabetes mellitus complication status: with neurologic complications Diabetes mellitus complication detail: with autonomic neuropathy (4) Dialysis AV fistula malfunction Code(s): T82.590A - [facility] COMPL OF SURGICALLY CREATED ARTERIOVENOUS FISTULA, INIT (5) History of hepatitis C Code(s): Z86.19 - PERSONAL HISTORY OF OTHER INFECTIOUS AND PARASITIC DISEASES (6) Hyperthyroidism Code(s): E05.90 - THYROTOXICOSIS, UNSP WITHOUT THYROTOXIC CRISIS OR STORM (7) SVT (supraventricular tachycardia) Code(s): I47.1 - SUPRAVENTRICULAR TACHYCARDIA (8) Constipation Code(s): K59.00 - CONSTIPATION, UNSPECIFIED (9) C. difficile colitis Code(s): A04.7 - ENTEROCOLITIS DUE TO CLOSTRIDIUM DIFFICILE * DO NOT USE *
--- NOTE | 2017-11-22 16:06 | DS ---
Physical Examination Vital Signs: Vital Signs Temperature 98.5 F 11/22/17 14:48 Pulse Rate 53 L 11/22/17 14:48 Respiratory Rate 16 11/22/17 14:48 Blood Pressure 138/63 11/22/17 14:48 O2 Sat by Pulse Oximetry (%) 100 11/22/17 13:06 Findings/Remarks: in bed NAD VSS afebrile stable no c/o wants to go home colonoscopy unrevealing d/w GI and cardiology OK to DC home and f/u as outpt as advised; OK to restart eliquis d/w pt and staff Constitutional: Yes: No Distress, Calm Eyes: Yes: Conjunctiva Clear HENT: Yes: Atraumatic Neck: Yes: Supple Cardiovascular: Yes: Regular Rate and Rhythm Respiratory: Yes: CTA Bilaterally Gastrointestinal: Yes: Soft. No: Distention Renal/: No: CVA Tenderness - Left, CVA Tenderness - Right Musculoskeletal: No: Joint Stiffness, Joint Swelling Extremities: No: Cold, Cool, Cyanosis Edema: No Integumentary: No: Rash, Venous Stasis Changes Neurological: Yes: WNL, Alert, Oriented ...Motor Strength: WNL Psychiatric: Yes: WNL, Alert, Oriented. No: Agitated, Suicidal Ideation Labs: CBC, BMP 11/21/17 07:00 11/21/17 07:00 Discharge Summary Reason For Visit: SHORTNESS OF BREATH Current Active Problems Screening for colon cancer (Acute) Shortness of breath (Acute) Procedures: Principal: admitted with SOB r/o ASHD CHF; h/o HTN SVT CHF obesity hyperthyroid, ESRD on HD. Other Procedures: seen by cardiology;. w/u for weight loss per GI colonoscopy; . dialysis per renal Hospital Course: stable; will need cardiac cath - can be done as outpt per cardiology; will need new AVF HD access - to be coordinated with cardiology and vascular sx; will need GI pulmonary endocrine as well as health maintenance ([employer] mammogram) as outpt d/w pt Condition: Guarded - Instructions Diet, Activity, Other Instructions: f/u with PCP cardiology and endocrine in 1-4 weeks cardiac cath per cardiology dialysis per renal health maintenance mammogram pap [employer] BDT outpt vascular sx for AVF per dr Nick RTBO if worse or recurrent c/o Referrals: Rebecca Villarreal [Primary Care Provider] - Garfield Arriaza MD [Staff Physician] - Tom Morley MD [Staff Physician] - Chris Nick MD [Staff Physician] - Jon Paz MD [Staff Physician] - Katherine Natarajan MD [Staff Physician] - Disposition: VNS/HOME HEALTH CARE - Home Medications Comprehensive Discharge Medication List: Ambulatory Orders Diltiazem [Cardizem -] 90 mg PO TID 07/10/16 Escitalopram Oxalate [Lexapro -] 5 mg PO DAILY 07/10/16 Metoprolol Succinate [Toprol XL -] 100 mg PO HS 07/10/16 Clonidine HCl 1 tab PO TID 04/01/17 Apixaban [Eliquis] 5 mg PO BID 11/18/17 Atorvastatin Calcium 20 mg PO HS 11/18/17 Furosemide [Lasix] 80 mg PO DAILY 11/18/17 Methimazole [Tapazole] 5 mg PO DAILY 11/18/17 Acetaminophen [Tylenol .Regular Strength -] 650 mg PO Q6H PRN tablet 11/22/17 Polyethylene Glycol 3350 [Miralax 119 gm Btl -] 17 gm PO BID bottle 11/22/17
[2017-11-22 17:44] VITALS: BP 161/71; PULSE 56; TEMP 98
[2017-11-23 08:06] LABS: FIBROSIS SCORE. 0.15 (0.00-0.21); HCV ALPHA 2 MACRO CHART 236 mg/dL (110-276); HCV GGT 20 IU/L (0-60); NECRO.INFLAM ACT.SCORE 0.01 (0.00-0.17); NECROINFLAM. ACTIVITY GRADE A0-No activity (.)
== END 2017-11-22 18:30 | disposition home health service (06) | DRG 308 ==
LOC: JER 09:12 → JERBED 09:32 → J4S 12:27
PROVIDERS: ADMIT Internal Medicine; ATTEND Internal Medicine
PROC: 0DJD8ZZ Inspection of Lower Intestinal Tract, Via Natural or Artificial Opening Endoscopic (ICD-10-PCS; principal; 2017-11-22 15:00)
DX: I48.0 Paroxysmal atrial fibrillation (principal); N18.6 End stage renal disease; I12.0 Hypertensive chronic kidney disease with stage 5 chronic kidney disease or end stage renal disease; J84.9 Interstitial pulmonary disease, unspecified; I50.42 Chronic combined systolic (congestive) and diastolic (congestive) heart failure; E87.2 Acidosis; K57.30 Diverticulosis of large intestine without perforation or abscess without bleeding; I47.1 Supraventricular tachycardia; E11.43 Type 2 diabetes mellitus with diabetic autonomic (poly)neuropathy; Z86.19 Personal history of other infectious and parasitic diseases; E05.90 Thyrotoxicosis, unspecified without thyrotoxic crisis or storm; K59.00 Constipation, unspecified; E11.22 Type 2 diabetes mellitus with diabetic chronic kidney disease; Z99.2 Dependence on renal dialysis; D50.9 Iron deficiency anemia, unspecified; Z86.73 Personal history of transient ischemic attack (TIA), and cerebral infarction without residual deficits; M19.042 Primary osteoarthritis, left hand; I25.10 Atherosclerotic heart disease of native coronary artery without angina pectoris; D64.9 Anemia, unspecified; E78.5 Hyperlipidemia, unspecified; E11.319 Type 2 diabetes mellitus with unspecified diabetic retinopathy without macular edema; I27.20 Pulmonary hypertension, unspecified; I34.0 Nonrheumatic mitral (valve) insufficiency; J84.10 Pulmonary fibrosis, unspecified; E66.9 Obesity, unspecified; Z68.28 Body mass index [BMI] 28.0-28.9, adult; N25.0 Renal osteodystrophy; K64.4 Residual hemorrhoidal skin tags; Z11.3 Encounter for screening for infections with a predominantly sexual mode of transmission
CPT/HCPCS: 36415; 71045-TC-FY; 73090-TC-LT-FY; 73110-TC-LR-FY; 73130-TC-LR-FY; 76700-TC; 80048; 80053; 82105; 82172; 82550; 82962; 82977; 83010; 83880; 83883; 84100; 84436; 84439; 84443; 84460; 84484; 85025; 85027; 85610; 85730; 86704; 86706; 86708; 86803; 86850; 86870; 86900; 86901; 86902; 87040; 87340; 93005; 93010; 99282-25; G0463-25; J0735

== ENCOUNTER 2017-11-26 08:19 | Emergency (ER) | payer OTHER ==
--- NOTE | 2017-11-26 08:26 | PDOC ---
History of Present Illness <Bharath Moe - Last Filed: 11/26/17 10:22> <Chen Fuller - Last Filed: 11/26/17 10:50> - General History Source: Patient Exam Limitations: No Limitations - History of Present Illness Initial Comments: 11/26/17 08:50 67 year old female with PMH ESRD on dialysis (//), DM, HTN, LVEF 45% (ECHO 07/19), Atrial fibrillation on Eliquis, hyperthyroid, HCV sent to ED by dialysis center for dialysis catheter problem. She states that there are "wires sticking out". She received 1 hour 15 minutes of her dialysis today. She denies discharge from site, fever, chills, nausea, vomiting, chest pain, shortness of breath, abdominal pain, syncope. She reports the catheter was placed x6 months ago, without any issues until today. Recent hospital course history: -Pt was admitted for SOB, left hand pain 0n 11/18/17. History of positive stress test. Cath defered by cardio until colonoscopy was performed and hyperthyroidism under control. Pt was discharged 11/22/17. PCP - [facility] - [facility] <Astrid Sheldon - Last Filed: 11/26/17 11:12> - General Chief Complaint: Dialysis Shunt Problem Stated Complaint: Urinary Catheter Problem Time Seen by Provider: 11/26/17 08:26 Past History <Bharath Moe - Last Filed: 11/26/17 10:22> <Chen Fuller - Last Filed: 11/26/17 10:50> - Past Medical History Anemia: Yes (iron deficiency anemia) Asthma: No Cancer: No Cardiac Disorders: Yes ("HEART BEATS FAST OCCAS") CVA: Yes (2012-NO RESIDUAL) COPD: No CHF: No Dementia: No Diabetes: Yes Dialysis: Yes () GI Disorders: No Disorders: No HTN: Yes Hypercholesterolemia: No Liver Disease: No Seizures: No Thyroid Disease: Yes - Surgical History Abdominal Surgery: No Appendectomy: Yes Cardiac Surgery: No Cholecystectomy: No Lung Surgery: No Neurologic Surgery: No Orthopedic Surgery: No - Suicide/Smoking/Psychosocial Hx Smoking Status: No Smoking History: Unknown if ever smoked Have you smoked in the past 12 months: No Number of Cigarettes Smoked Daily: 0 Hx Alcohol Use: No Drug/Substance Use Hx: No Substance Use Type: None Hx Substance Use Treatment: No <MonalisaAstrid - Last Filed: 11/26/17 11:12> - Past Medical History Allergies/Adverse Reactions: Allergies Allergy/AdvReac Type Severity Reaction Status Date / Time nut - unspecified [nut] Allergy "HIVES,THROAT Verified 11/18/17 09:15 CLOSES" Fish Containing Products AdvReac Swelling Verified 11/18/17 09:15 Home Medications: Ambulatory Orders Diltiazem [Cardizem -] 90 mg PO TID 07/10/16 Escitalopram Oxalate [Lexapro -] 5 mg PO DAILY 07/10/16 Metoprolol Succinate [Toprol XL -] 100 mg PO HS 07/10/16 Clonidine HCl 1 tab PO TID 04/01/17 Apixaban [Eliquis] 5 mg PO BID 11/18/17 Atorvastatin Calcium 20 mg PO HS 11/18/17 Furosemide [Lasix] 80 mg PO DAILY 11/18/17 Methimazole [Tapazole] 5 mg PO DAILY 11/18/17 Acetaminophen [Tylenol .Regular Strength -] 650 mg PO Q6H PRN tablet 11/22/17 Polyethylene Glycol 3350 [Miralax 119 gm Btl -] 17 gm PO BID bottle 11/22/17 Review of Systems - Review of Systems Able to Perform ROS?: Yes Comments:: 11/26/17 08:53 General: admits to dialysis catheter problem. denies fever, chills, night sweats , generalized weakness. HEENT: denies sore throat, rhinorrhea, ear pain. Heart: denies chest pain, palpitations, syncope, lower extremity swelling, diaphoresis. Respiratory: denies shortness of breath, cough, sputum production, hematemesis. Abdomen: denies abdominal pain, nausea, vomiting, diarrhea, constipation, blood in stool. : denies dysuria, increased urinary frequency, hematuria, urinary incontinence , flank pain. Back: denies back pain. Musculoskeletal: denies joint pain, muscle pain, joint swelling. Neurological: denies headache, dizziness, numbness, tingling, weakness. Skin: denies rash, laceration, abrasion. <Astrid Sheldon - Last Filed: 11/26/17 11:12> *Physical Exam - Vital Signs Last Vital Signs Temp Pulse Resp BP Pulse Ox 97.7 F 54 L 18 153/74 100 11/26/17 08:25 11/26/17 08:25 11/26/17 08:25 11/26/17 08:25 11/26/17 08:25 <Bharath Moe - Last Filed: 11/26/17 10:22> - Vital Signs Last Vital Signs Temp Pulse Resp BP Pulse Ox 97.7 F 54 L 18 153/74 100 11/26/17 08:25 11/26/17 08:25 11/26/17 08:25 11/26/17 08:25 11/26/17 08:25 <Chen Fuller - Last Filed: 11/26/17 10:50> - Physical Exam Comments: 11/26/17 08:53 Constitutional: Well-nourished, Well-developed, appearing stated age. HEENT: head is normocephalic, atraumatic. EOMI. PERRLA. Neck: supple. Full ROM. Heart: regular rhythm. no tachycardia. Chest: permacath to left anterior chest wall. no drainage, in place. unclear if it has slipped distally as pt does not know its initial placement. suture seen that has slipped. Lungs: clear to auscultation bilaterally. no crackles, rhonchi or wheezing. no stridor. Abdomen: soft, nontender. normal bowel sounds. no rebound, guarding, masses. Extremities: Peripheral pulses intact and equal. No lower extremity edema. Neurological: CN 2-12 grossly intact. Moves all four extremities. Psych: awake, alert, oriented x3. Follows commands. Answers questions appropriately. <Astrid Sheldon - Last Filed: 11/26/17 11:12> Heart Score/ECG Review #1 ECG reviewed & interpreted by me at: 10:12 General ECG Interpretation: Sinus Rhythm, Normal Rate (53), Normal Intervals ( qtc 456), No acute ischemic changes (TWI I/AVL, prwp) Compared to previous ECG there are: No significant change (c/w 11/18/17) <Bharath Moe - Last Filed: 11/26/17 10:22> - ECG Impressions Comment:: 11/26/17 10:28 EKG performed at 10:12 on 11/26/17: Rate 53, regular rhythm, left axis, no acute st changes, 1st degree AV block noted. Similar to prior EKG 11/18/17 <Astrid Sheldon - Last Filed: 11/26/17 11:12> ED Treatment Course - LABORATORY CBC & Chemistry Diagram: 11/26/17 10:00 11/26/17 10:00 - ADDITIONAL ORDERS Additional order review: 11/26/17 10:00 RBC 4.24 MCV 78.4 L MCHC 32.1 RDW 19.2 H MPV 8.0 Neutrophils % 64.8 Lymphocytes % 18.5 Monocytes % 8.7 Eosinophils % 6.9 H Basophils % 1.1 <Bharath Moe - Last Filed: 11/26/17 10:22> - LABORATORY CBC & Chemistry Diagram: 11/26/17 10:00 11/26/17 10:00 - ADDITIONAL ORDERS Additional order review: Laboratory Results 11/26/17 11/26/17 10:00 10:00 PT with INR 18.10 H INR 1.60 H PTT (Actin FS) 44.6 H Sodium 136 Potassium 3.9 Chloride 103 Carbon Dioxide 22 Anion Gap 11 BUN 21 H Creatinine 4.5 H Creat Clearance w eGFR 9.75 Random Glucose 91 Calcium 8.6 Total Bilirubin 0.4 AST 21 ALT 14 Alkaline Phosphatase 113 Total Protein 7.3 Albumin 2.7 L 11/26/17 10:00 RBC 4.24 MCV 78.4 L MCHC 32.1 RDW 19.2 H MPV 8.0 Neutrophils % 64.8 Lymphocytes % 18.5 Monocytes % 8.7 Eosinophils % 6.9 H Basophils % 1.1 <Chen Fuller - Last Filed: 11/26/17 10:50> - LABORATORY CBC & Chemistry Diagram: 11/26/17 10:00 11/26/17 10:00 <Astrid Sheldon - Last Filed: 11/26/17 11:12> Medical Decision Making - Medical Decision Making 11/26/17 10:50 Dr. Rebecca Villarreal was paged and notified via phone service. <Chen Fuller - Last Filed: 11/26/17 10:50> - Medical Decision Making 67 year old female with PMH ESRD on dialysis (T/Th/S), DM, HTN, LVEF 45% (ECHO 07/19), Atrial fibrillation on Eliquis, hyperthyroid, HCV sent to ED by dialysis center for dialysis catheter problem. She received 1 hour 15 minutes of her dialysis today. She denies discharge from site, fever, chills, nausea, vomiting, chest pain, shortness of breath, abdominal pain, syncope. She reports the catheter was placed x6 months ago, without any issues until today. It appears the suture holding the catheter in placed has slipped and it is possible that the catheter has slipped distally. -Pending CXR for placement. Initial Vital Signs Temp Pulse Resp BP Pulse Ox 97.7 F 54 L 18 153/74 100 11/26/17 08:25 11/26/17 08:25 11/26/17 08:25 11/26/17 08:25 11/26/17 08:25 PE - pt does not appear to be fluid overloaded, no LE edema, lungs clear to auscultation. Catheter in place, suture seen that has slipped. 11/26/17 09:43 CXR - catheter appears dislodged, identified in the left axilla. no evidence of fluid overload. Dr. Nick paged. Pending labs, EKG for pre-operative purposes. Will page nephro once labs return. 11/26/17 10:[address] Nick, who states that he would like the patient to be admitted for replacement of her dialysis catheter. 11/26/17 10:45 CBC WBC 12.1 K/mm3 (4.0-10.0) H 11/26/17 10:00 RBC 4.24 M/mm3 (3.60-5.2) 11/26/17 10:00 Hgb 10.7 GM/dL (10.7-15.3) 11/26/17 10:00 Hct 33.3 % (32.4-45.2) 11/26/17 10:00 MCV 78.4 fl (80-96) L 11/26/17 10:00 MCH 25.1 pg (25.7-33.7) L 11/26/17 10:00 MCHC 32.1 g/dl (32.0-36.0) 11/26/17 10:00 RDW 19.2 % (11.6-15.6) H 11/26/17 10:00 Plt Count 424 K/MM3 (134-434) D 11/26/17 10:00 MPV 8.0 fl (7.5-11.1) 11/26/17 10:00 Absolute Neuts (auto) 7.8 K/mm3 (1.5-8.0) 11/26/17 10:00 Neutrophils % 64.8 % (42.8-82.8) 11/26/17 10:00 Lymphocytes % 18.5 % (8-40) 11/26/17 10:00 Monocytes % 8.7 % (3.8-10.2) 11/26/17 10:00 Eosinophils % 6.9 % (0-4.5) H 11/26/17 10:00 Basophils % 1.1 % (0-2.0) 11/26/17 10:00 Nucleated RBC % 0 % (0-0) 11/26/17 10:00 Leukocytosis - WBC 12.1, no left shift. Afebrile. CMP Sodium 136 mmol/L (136-145) 11/26/17 10:00 Potassium 3.9 mmol/L (3.5-5.1) 11/26/17 10:00 Chloride 103 mmol/L (98-107) 11/26/17 10:00 Carbon Dioxide 22 mmol/L (21-32) 11/26/17 10:00 Anion Gap 11 MMOL/L (8-16) 11/26/17 10:00 BUN 21 mg/dL (7-18) H 11/26/17 10:00 Creatinine 4.5 mg/dL (0.55-1.3) H 11/26/17 10:00 Creat Clearance w eGFR 9.75 (>60) 11/26/17 10:00 Random Glucose 91 mg/dL (74-106) 11/26/17 10:00 Calcium 8.6 mg/dL (8.5-10.1) 11/26/17 10:00 Total Bilirubin 0.4 mg/dL (0.2-1) 11/26/17 10:00 AST 21 U/L (15-37) 11/26/17 10:00 ALT 14 U/L (13-61) 11/26/17 10:00 Alkaline Phosphatase 113 U/L (45-117) 11/26/17 10:00 Total Protein 7.3 g/dl (6.4-8.2) 11/26/17 10:00 Albumin 2.7 g/dl (3.4-5.0) L 11/26/17 10:00 BUN 21, Cr 4.5, Cr Clearance with eGFR 9.75. Potassium 3.9. INR, PTT INR 1.60 (0.83-1.09) H 11/26/17 10:00 Elevated INR, on eliquis. 11/26/17 10:[address] Paz, who states that at this time based on the pt's clinical picture and labs that he believes the patient can have the catheter removed and come back tomorrow for replacement, based on Dr. Nick's recs. Dr. Nick paged to discuss plan for care. 11/26/17 11:10 Catheter spontaneously fell out. Dr. Nick states he is comfortable with the patient going home and following up for the procedure tomorrow. Recs stopping Eliquis today and no food after midnight. Dr. Villarreal informed of patient condition, comfortable with pt going home and following up tomorrow for the procedure. Dressing applied to catheter site. I discussed the plan of care with the patient, she states she would like to go home and follow up tomorrow. Pt will be discharged with strict return precautions and follow up instructions. <Astrid Sheldon - Last Filed: 11/26/17 11:12> *DC/Admit/Observation/Transfer <Bharath Moe - Last Filed: 11/26/17 10:22> <Chen Fuller - Last Filed: 11/26/17 10:50> - Discharge Dispostion Decision to Admit order: No <Astrid Sheldon - Last Filed: 11/26/17 11:12> Diagnosis at time of Disposition: Dialysis catheter clot or failure - Discharge Dispostion Disposition: HOME Condition at time of disposition: Stable - Referrals Referrals: Rebecca Villarreal [Primary Care Provider] - - Patient Instructions Additional Instructions: You were seen today for dialysis catheter problem. Your Chest X-ray displayed a dislodged catheter. A copy of the report has been included in your discharge paperwork. I spoke with Dr. Nick, who states that he will perform the procedure for catheter replacement tomorrow, and is comfortable with you going home. I spoke with your cotton agent, Dr. Paz, who states that he is comfortable with you going home and having the procedure performed tomorrow. I spoke with you primary care doctor, Dr. Villarreal, who is aware of your condition and is comfortable with you going home and having the procedure performed tomorrow. Stop Eliquis today. Do not eat after 12 am. The ambulatory center will call you tonight with the time of your appointment. It is very important that you follow up tomorrow and have the catheter replaced. If you do not follow up you risk dangerous increasing fluid overload and dangerous electrolyte abnormalities. Follow up with your PCP within 5 days. Bring the paperwork given to you today to your appointment. Return to the Emergency Department for shortness of breath, chest pain, leg swelling, passing out, fever, chills, vomiting, or any other new, worsening or concerning symptoms. - Post Discharge Activity
[2017-11-26 08:32] VITALS: BP 153/74; PULSE 54; TEMP 97.7; BMI 28.8
--- NOTE | 2017-11-26 09:09 | PDOC ---
Attending Attestation - Resident Resident Name: Astrid Sheldon - ED Attending Attestation I have performed the following: I have examined & evaluated the patient, The case was reviewed & discussed with the resident, I agree w/resident's findings & plan - HPI HPI: 11/26/17 09:04 67-year-old female end-stage renal on dialysis Saturday//Saturday via left chest permacath presents from dialysis with possibly dislodged catheter. Patient completed 1.25 hours of usual 3 hours of dialysis, staff noted the catheter and referred her to the emergency department. Patient has absolutely no complaints, no pain or bleeding or shortness of breath. - Physicial Exam PE: 11/26/17 09:08 Vitals as noted and within normal limits Left chest: Tunnel dialysis catheter with severed suture and apparently incompletely dislodged, there is no tenderness or crepitus or bleeding or discharge - Medical Decision Making 11/26/17 09:08 67-year-old female presents asymptomatic with possibly partially dislodged left chest wall dialysis catheter. X-ray to confirm catheter placement May need replacement, will consult surgical team
[2017-11-26 10:06] LABS: BASO % 1.1 % (0-2.0); EOS % 6.9 % (0-4.5); HEMATOCRIT 33.3 % (32.4-45.2); HEMOGLOBIN 10.7 GM/dL (10.7-15.3); LYMPH % 18.5 % (8-40); MCH 25.1 pg (25.7-33.7); MCHC 32.1 g/dl (32.0-36.0); MEAN CELL VOLUME 78.4 fl (80-96); MONO % 8.7 % (3.8-10.2); NEUT % 64.8 % (42.8-82.8); PLATELET COUNT 424 K/MM3 (134-434); RBC 4.24 M/mm3 (3.60-5.2); RDW 19.2 % (11.6-15.6); WHITE BLOOD COUNT 12.1 K/mm3 (4.0-10.0)
[2017-11-26 10:22] LABS: INR 1.6 (0.83-1.09); PROTHROMBIN TIME (PATIENT) 18.1 SEC (9.7-13.0)
[2017-11-26 10:25] LABS: ACTIVATED PTT 44.6 SECONDS (25.2-36.5)
[2017-11-26 10:42] LABS: ALBUMIN 2.7 g/dl (3.4-5.0); ALK PHOS 113 U/L (45-117); ANION GAP 11 MMOL/L (8-16); BILIRUBIN,TOTAL 0.4 mg/dL (0.2-1); BLOOD UREA NITROGEN 21 mg/dL (7-18); CALCIUM 8.6 mg/dL (8.5-10.1); CHLORIDE 103 mmol/L (98-107); CO2 22 mmol/L (21-32); CREATININE 4.5 mg/dL (0.55-1.3); GLUCOSE,RANDOM 91 mg/dL (74-106); POTASSIUM 3.9 mmol/L (3.5-5.1); SGOT/AST 21 U/L (15-37); SGPT/ALT 14 U/L (13-61); SODIUM 136 mmol/L (136-145); TOT PROT 7.3 g/dl (6.4-8.2)
--- NOTE | 2017-11-26 16:37 | EKG ---
Test Reason : Blood Pressure : / mmHG Vent. Rate : 053 BPM Atrial Rate : 053 BPM P-R Int : 328 ms QRS Dur : 100 ms QT Int : 486 ms P-R-T Axes : 072 -24 126 degrees QTc Int : 456 ms SINUS BRADYCARDIA WITH 1ST DEGREE A-V BLOCK MINIMAL VOLTAGE CRITERIA FOR LVH, MAY BE NORMAL VARIANT T WAVE ABNORMALITY, CONSIDER LATERAL ISCHEMIA ABNORMAL ECG Confirmed by MD Marilyn, Linden ([id number]) on 11/26/2017 4:37:20 PM Referred By: Confirmed By:Linden Sanders MD
== END 2017-11-26 11:18 | disposition home or self-care (01) ==
LOC: JER 08:19
DX: T82.520A Displacement of surgically created arteriovenous fistula, initial encounter (principal); I77.0 Arteriovenous fistula, acquired; I12.0 Hypertensive chronic kidney disease with stage 5 chronic kidney disease or end stage renal disease; E11.22 Type 2 diabetes mellitus with diabetic chronic kidney disease; N18.6 End stage renal disease; N17.8 Other acute kidney failure; Z99.2 Dependence on renal dialysis; Z79.84 Long term (current) use of oral hypoglycemic drugs; I48.91 Unspecified atrial fibrillation; Z79.01 Long term (current) use of anticoagulants; E05.90 Thyrotoxicosis, unspecified without thyrotoxic crisis or storm; B18.2 Chronic viral hepatitis C; Z86.73 Personal history of transient ischemic attack (TIA), and cerebral infarction without residual deficits; R93.1 Abnormal findings on diagnostic imaging of heart and coronary circulation; D50.9 Iron deficiency anemia, unspecified
CPT/HCPCS: 36415; 71046-TC-FY; 80053; 85025; 85610; 85730; 86850; 86870; 86880; 86900; 86901; 86902; 93005; 93010; 99283-25

== ENCOUNTER 2017-11-27 13:12 | Day surgery (SDC) | payer OTHER ==
[2017-11-26 15:24] VITALS: BMI 28.8
[2017-11-27] MEDS ORDERED: ceFAZolin SODIUM 1 GM VIAL IVPB ONE (16:12)
--- NOTE | 2017-11-27 16:43 | HP ---
Admitting History and Physical - Admission Chief Complaint: Here for permacath placement after her old one fell out yesterday. 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) Cardiovascular: Yes: CHF, HTN, Hyperlipdemia Pulmonary: Yes: Asthma, Pneumonia, Other (ILD) Gastrointestinal: Yes: Constipation, GERD Hepatobiliary: Yes: Hepatitis C Renal/: Yes: Renal Inusuff Heme/Onc: Yes: Anemia Musculoskeletal: Yes: Osteoarthritis Endocrine: Yes: Diabetes Mellitus, Hyperthyroidism, Other - Past Surgical History Past Surgical History: Yes: , Hysterectomy, Appendectomy, Colonoscopy - Smoking History Smoking history: Never smoked Have you smoked in the past 12 months: No Aproximately how many cigarettes per day: 0 - Alcohol/Substance Use Hx Alcohol Use: No History of Substance Use: reports: None - Social History ADL: Independent History of Recent Travel: No Home Medications - Allergies Allergies/Adverse Reactions: Allergies Allergy/AdvReac Type Severity Reaction Status Date / Time nut - unspecified [nut] Allergy Severe "HIVES,THROAT Verified 11/26/17 15:24 CLOSES" povidone-iodine Allergy Severe Rash Verified 11/27/17 13:26 [From Betadine] soap [From Betadine] Allergy Severe Rash Verified 11/27/17 13:27 Fish Containing Products AdvReac Severe Swelling Verified 11/26/17 15:24 - Home Medications Home Medications: Ambulatory Orders Diltiazem [Cardizem -] 90 mg PO TID 07/10/16 Escitalopram Oxalate [Lexapro -] 5 mg PO DAILY 07/10/16 Metoprolol Succinate [Toprol XL -] 100 mg PO HS 07/10/16 Clonidine HCl 1 tab PO DAILY 04/01/17 Apixaban [Eliquis] 5 mg PO BID 11/18/17 Atorvastatin Calcium 20 mg PO HS 11/18/17 Furosemide [Lasix] 80 mg PO DAILY 11/18/17 Methimazole [Tapazole] 5 mg PO DAILY 11/18/17 Acetaminophen [Tylenol .Regular Strength -] 650 mg PO Q6H PRN tablet 11/22/17 Family Disease History - Family Disease History Family Disease History: Diabetes: Mother ( age 94), Brother Review of Systems - Review of Systems Constitutional: reports: No Symptoms Eyes: reports: No Symptoms HENT: reports: No Symptoms Neck: reports: No Symptoms Cardiovascular: reports: No Symptoms Respiratory: reports: No Symptoms Gastrointestinal: reports: No Symptoms Genitourinary: reports: No Symptoms Breasts: reports: No Symptoms Reported Musculoskeletal: reports: No Symptoms Integumentary: reports: No Symptoms Neurological: reports: No Symptoms Endocrine: reports: No Symptoms Hematology/Lymphatic: reports: No Symptoms Psychiatric: reports: No Symptoms Physical Examination Vital Signs: Vital Signs Temperature 97.7 F 11/27/17 13:55 Pulse Rate 42 L 11/27/17 13:55 Respiratory Rate 18 11/27/17 13:55 Blood Pressure 126/67 11/27/17 13:55 O2 Sat by Pulse Oximetry (%) 100 11/27/17 14:14 Constitutional: Yes: Well Nourished, No Distress, Calm Eyes: Yes: WNL, Conjunctiva Clear, EOM Intact HENT: Yes: WNL, Atraumatic, Normocephalic Neck: Yes: WNL, Supple, Trachea Midline Cardiovascular: Yes: WNL, Regular Rate and Rhythm Respiratory: Yes: WNL, Regular, CTA Bilaterally Gastrointestinal: Yes: WNL, Normal Bowel Sounds Musculoskeletal: Yes: WNL Extremities: Yes: WNL Edema: No Integumentary: Yes: WNL Neurological: Yes: WNL, Alert, Oriented ...Motor Strength: WNL Psychiatric: Yes: WNL Assessment/Plan Dislodged permacath 1. Will place new one today
[2017-11-27] MEDS ORDERED: ONDANSETRON 4 MG/2 ML VIAL IVPUSH PRN (16:44)
--- NOTE | 2017-11-27 16:44 | OP ---
Operative Note - Note: Operative Date: 11/27/17 Pre-Operative Diagnosis: ESRD, dislodged permacath Operation: Insertion of permacath Post-Operative Diagnosis: Same as Pre-op Surgeon: Chris Nick Anesthesia: Fractional Estimated Blood Loss (mls): 20 Operative Report Dictated: Yes
[2017-11-27 19:02] VITALS: BP 145/75; PULSE 51; TEMP 97.9
--- NOTE | 2017-12-04 20:42 | OP ---
DATE OF OPERATION: 11/27/2017 PREOPERATIVE DIAGNOSIS: End-stage renal disease/PermCath. POSTOPERATIVE DIAGNOSIS: End-stage renal disease/PermCath. PROCEDURE: Insertion of PermCath. SURGEON: Chris Márquez M.D. ANESTHESIA: Fractional. BLOOD LOSS: 20 mL. INDICATION: The patient is a 67-year-old female that comes with a dislodged PermCath that has completely come out. She came in through ambulatory surgery for a new PermCath replacement. The patient was consented for the procedure understanding all risks, benefits, and alternatives and then taken to the operating room. Once in the operating room, patient was laid on the operating table in a supine manner, and the area of the left neck and chest prepped and draped in a sterile surgical manner. Then under ultrasound guidance, we visualized the left internal jugular vein and 10 mL of lidocaine 1% was injected there. We then went ahead and used our Micropuncture needle and punctured the left internal jugular vein under ultrasound guidance. A Micropuncture wire was inserted. Micropuncture sheath was inserted. A 0.035 floppy guidewire was then placed under fluoroscopy into the SVC. We then injected 10 mL lidocaine 1% above and below the clavicle. We then used a number 11 blade and made a 1-cm incision at the puncture site. Using a 15 blade, we made a 1-cm incision below the clavicle. We then tunneled the PermCath up to the puncture site. We then used our breakaway sheath and placed it over the guidewire into the vein under fluoroscopy, and the tunneling guides were removed. Catheter was fixed inside the sheath. The sheath was broken away and the catheter was placed inside the vein. Neck of the catheter was nice and smooth. The tip of the catheter was located outside the right atrium. We then josephine back on each port of the catheter and there was good flow. Heparinized saline was injected and 2000 units of IV heparin were injected into each port. 4-0 Biosyn was used and 2 simple stitches were placed at the puncture site. 3-0 nylon was used and the catheter was attached to the skin. Steri-Strips, 4 x 4, and Tegaderm was placed. Patient tolerated the procedure without complications. Patient will be transferred to PACU in stable condition where chest x-ray will be obtained. CHRIS MÁRQUEZ DO ZIPPER SEWING MACHINE OPERATOR/[id number]
== END 2017-11-27 19:10 | disposition home or self-care (01) ==
LOC: JASU-SURG 13:12
PROVIDERS: ATTEND Surgery Vascular Surgery
PROC: B214YZZ Fluoroscopy of Right Heart using Other Contrast (ICD-10-PCS; 2017-11-27)
PROC: 02H633Z Insertion of Infusion Device into Right Atrium, Percutaneous Approach (ICD-10-PCS; principal; 2017-11-27 15:00)
DX: I12.0 Hypertensive chronic kidney disease with stage 5 chronic kidney disease or end stage renal disease (principal); N18.6 End stage renal disease; Z99.2 Dependence on renal dialysis; B19.20 Unspecified viral hepatitis C without hepatic coma; E11.40 Type 2 diabetes mellitus with diabetic neuropathy, unspecified; G56.02 Carpal tunnel syndrome, left upper limb; M19.049 Primary osteoarthritis, unspecified hand
CPT/HCPCS: 36558; C1750; 71045-TC-FY; 76000-TC-FY; 94760

== ENCOUNTER 2018-01-01 13:23 | Day surgery (SDC) | payer OTHER ==
[2017-12-20 14:53] VITALS: BMI 29.9
[~2018-01-01 13:23] MED LIST changes: +ONDANSETRON 4 MG/2 ML VIAL IVPUSH PRN; -ceFAZolin SODIUM 1 GM VIAL IVPB ONE
--- NOTE | 2018-01-01 14:51 | HP ---
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) Cardiovascular: Yes: CHF, HTN, Hyperlipdemia Pulmonary: Yes: Asthma, Pneumonia, Other (ILD) Gastrointestinal: Yes: Constipation, GERD Hepatobiliary: Yes: Hepatitis C Renal/: Yes: Renal Inusuff Heme/Onc: Yes: Anemia Musculoskeletal: Yes: Osteoarthritis Endocrine: Yes: Diabetes Mellitus, Hyperthyroidism, Other - Past Surgical History Past Surgical History: Yes: , Hysterectomy, Appendectomy, Colonoscopy - Smoking History Smoking history: Never smoked Have you smoked in the past 12 months: No Aproximately how many cigarettes per day: 0 - Alcohol/Substance Use Hx Alcohol Use: No History of Substance Use: reports: None - Social History ADL: Independent History of Recent Travel: No Home Medications - Allergies Allergies/Adverse Reactions: Allergies Allergy/AdvReac Type Severity Reaction Status Date / Time mushroom Allergy Severe Rash Verified 01/01/18 14:05 nut - unspecified [nut] Allergy Severe "HIVES,THROAT Verified 01/01/18 14:05 CLOSES" povidone-iodine Allergy Severe Rash Verified 01/01/18 14:05 [From Betadine] soap [From Betadine] Allergy Severe Rash Verified 01/01/18 14:05 Fish Containing Products AdvReac Severe Swelling Verified 01/01/18 14:05 - Home Medications Home Medications: Ambulatory Orders Diltiazem [Cardizem -] 90 mg PO TID 07/10/16 Escitalopram Oxalate [Lexapro -] 5 mg PO DAILY 07/10/16 Metoprolol Succinate [Toprol XL -] 100 mg PO HS 07/10/16 Clonidine HCl 1 tab PO DAILY 04/01/17 Apixaban [Eliquis] 5 mg PO BID 11/18/17 Atorvastatin Calcium 20 mg PO HS 11/18/17 Methimazole [Tapazole] 5 mg PO DAILY 11/18/17 Family Disease History - Family Disease History Family Disease History: Diabetes: Mother ( age 94), Brother Review of Systems - Review of Systems Constitutional: reports: No Symptoms Eyes: reports: No Symptoms HENT: reports: No Symptoms Neck: reports: No Symptoms Cardiovascular: reports: No Symptoms Respiratory: reports: No Symptoms Gastrointestinal: reports: No Symptoms Genitourinary: reports: No Symptoms Breasts: reports: No Symptoms Reported Musculoskeletal: reports: No Symptoms Integumentary: reports: No Symptoms Neurological: reports: No Symptoms Endocrine: reports: No Symptoms Hematology/Lymphatic: reports: No Symptoms Psychiatric: reports: No Symptoms Physical Examination Vital Signs: Vital Signs Temperature 98.1 F 01/01/18 14:04 Pulse Rate 59 L 01/01/18 14:04 Respiratory Rate 18 01/01/18 14:04 Blood Pressure 123/70 01/01/18 14:04 O2 Sat by Pulse Oximetry (%) 100 01/01/18 14:01 Constitutional: Yes: Well Nourished, No Distress, Calm Eyes: Yes: WNL, Conjunctiva Clear, EOM Intact HENT: Yes: WNL, Atraumatic, Normocephalic Neck: Yes: WNL, Supple, Trachea Midline Cardiovascular: Yes: WNL, Regular Rate and Rhythm Respiratory: Yes: WNL, Regular, CTA Bilaterally Gastrointestinal: Yes: WNL, Normal Bowel Sounds Musculoskeletal: Yes: WNL Extremities: Yes: WNL Edema: No Integumentary: Yes: WNL Neurological: Yes: WNL, Alert, Oriented ...Motor Strength: WNL Psychiatric: Yes: WNL Labs: CBC, BMP 01/01/18 13:49 Problem List - Problems (1) ESRD (end stage renal disease) Assessment/Plan: ESRD 1. For creation of right cephalic vein fistula today Code(s): N18.6 - END STAGE RENAL DISEASE
[2018-01-01] MEDS ORDERED: ceFAZolin SODIUM 1 GM VIAL IVPB ONE (15:33)
[2018-01-01] MEDS ORDERED: LIDOCAINE HCL 1%, 10 MG/ML (20ML VIAL) INF ONE (15:53)
[2018-01-01] MEDS ORDERED: ACETAMINOPHEN 325 MG TABLET (FP) PO PRN (17:15)
[2018-01-01] MEDS ORDERED: oxyCODONE HCL 5 MG TABLET PO PRN (17:15)
--- NOTE | 2018-01-01 17:24 | OP ---
Operative Note - Note: Operative Date: 01/01/18 Pre-Operative Diagnosis: ESRD Operation: Creation of left cephalic vein fistula Post-Operative Diagnosis: Same as Pre-op Surgeon: Chris Nick Anesthesia: Fractional Estimated Blood Loss (mls): 20 Operative Report Dictated: Yes
[2018-01-01 18:47] VITALS: TEMP 97.6
--- NOTE | 2018-01-01 18:51 | OP ---
DATE OF OPERATION: 01/01/2018 PREOPERATIVE DIAGNOSIS: End-stage renal disease. POSTOPERATIVE DIAGNOSIS: End-stage renal disease. PROCEDURE: Creation of right arteriovenous fistula, cephalic vein fistula. SURGEON: Chris Márquez DO ANESTHESIA: Fractional. CIVIL ENGINEERING INTERN: BEN Aly BLOOD LOSS: 20 mL. FINDINGS: The patient has a left IJ PermCath, needs permanent dialysis access. Patient had preoperative vein mapping performed, showing that she has a good right cephalic vein in her right arm and we will be using that for AV fistula creation. Patient came in to our ambulatory surgery. Patient was consented for the procedure, understanding all risks, benefits, alternatives. Preoperatively, in the holding area, the patient had a supraclavicular nerve block performed for the right upper extremity. Patient was then brought in to the operating room and laid down on the operating table in supine manner. The area of the right upper extremity was prepped and draped in a sterile surgical manner. We then went ahead and under ultrasound guidance marked our cephalic vein and our brachial artery above the antecubital space and a transverse incision was drawn through them. We then went ahead and made a 7 cm incision over the antecubital space. Bovie electrocautery used to control hemostasis, and we were able to dissect down to cephalic vein. Cephalic vein was dissected anteriorly and posteriorly and we got a good length of cephalic vein dissected. All branches were ligated using 4-0 silk. We then went medially and went through the bicipital aponeurosis and we were able to dissect out the brachial artery. The brachial artery was dissected anteriorly and posteriorly and we were able to place vessel loops proximally and distally. Heparin 5000 units IV were administered to patient. We then ligated our vein distally with 3-0 silk. We then placed a 4-Irish feeding tube into the vein and the vein dilated up appropriately and there was good drawback on it. We then went ahead and used a micro Rocha scissors and a 7-mm venotomy was made on the vein. We then went ahead and administered 5000 units of heparin, which we had, and after 3 minutes, we got distal and proximal control on the artery. We then used a 15 blade and an arteriotomy was made, which was extended to 7 mm using Rocha scissors. A 6-0 Prolene double-arm was used as stay sutures. We then used 6-0 Prolene double-arm and went outside-in on the vein and inside-out on the artery and ran the suture around to form the anastomosis between the artery and the vein. Once completed, we opened the distal artery first, then the proximal artery and the vein dilated appropriately and there was a good thrill in our AV fistula going up the arm. We then irrigated the wound copiously. Surgicel was placed, a 3-0 Vicryl was used, and the subcutaneous tissue was approximated in an interrupted manner, and the skin was closed with skin paradise. The area was wet and dried, and 4 x 4 Tegaderms were placed. Patient tolerated this procedure with no complication. Patient transferred to PACU in stable condition, where there was a good bruit and thrill in her right AV fistula. CHRIS MÁRQUEZ DO NP/[id number]
[2018-01-01 19:48] VITALS: BP 125/65; PULSE 66
== END 2018-01-01 19:40 | disposition home or self-care (01) ==
LOC: JASU-SURG 13:23
PROVIDERS: ATTEND Surgery Vascular Surgery
PROC: 03170ZD Bypass Right Brachial Artery to Upper Arm Vein, Open Approach (ICD-10-PCS; principal; 2018-01-01 15:00)
DX: I12.0 Hypertensive chronic kidney disease with stage 5 chronic kidney disease or end stage renal disease (principal); E11.22 Type 2 diabetes mellitus with diabetic chronic kidney disease; N18.6 End stage renal disease
CPT/HCPCS: 36415; 84132; 94760; J1644

== ENCOUNTER 2018-03-07 07:22 | Day surgery (SDC) | payer OTHER ==
[2018-03-03 15:11] VITALS: BMI 29.4
[2018-03-07] MEDS ORDERED: LIDOCAINE HCL 1%, 10 MG/ML (20ML VIAL) ONE (08:23)
[2018-03-07] MEDS ORDERED: MIDAZOLAM HCL 2 MG/2 ML SINGLE DOSE VIAL ONE (09:11)
[2018-03-07] MEDS ORDERED: ceFAZolin SODIUM 1 GM VIAL ONE (09:17)
[2018-03-07] MEDS ORDERED: ceFAZolin SODIUM 1 GM VIAL IVPB ONE (09:19)
[2018-03-07] MEDS ORDERED: LIDOCAINE HCL 1%, 10 MG/ML (50 mL VIAL) IJ ONE (09:24)
--- NOTE | 2018-03-07 09:43 | OP ---
Operative Note - Note: Operative Date: 03/07/18 Pre-Operative Diagnosis: clotted right avf Operation: Venogram right avf Post-Operative Diagnosis: Same as Pre-op Surgeon: Chris Nick Anesthesia: Fractional Estimated Blood Loss (mls): 5 Operative Report Dictated: Yes
--- NOTE | 2018-03-07 09:45 | HP ---
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) Cardiovascular: Yes: CHF, HTN, Hyperlipdemia Pulmonary: Yes: Asthma, Pneumonia, Other (ILD) Gastrointestinal: Yes: Constipation, GERD Hepatobiliary: Yes: Hepatitis C Renal/: Yes: Renal Inusuff Heme/Onc: Yes: Anemia Musculoskeletal: Yes: Osteoarthritis Endocrine: Yes: Diabetes Mellitus, Hyperthyroidism, Other - Past Surgical History Past Surgical History: Yes: , Hysterectomy, Appendectomy, Colonoscopy - Smoking History Smoking history: Never smoked Have you smoked in the past 12 months: No Aproximately how many cigarettes per day: 0 - Alcohol/Substance Use Hx Alcohol Use: No History of Substance Use: reports: None - Social History ADL: Independent History of Recent Travel: No Home Medications - Allergies Allergies/Adverse Reactions: Allergies Allergy/AdvReac Type Severity Reaction Status Date / Time mushroom Allergy Severe Rash Verified 03/07/18 08:03 nut - unspecified [nut] Allergy Severe "HIVES,THROAT Verified 03/07/18 08:03 CLOSES" povidone-iodine Allergy Severe Rash Verified 03/07/18 08:03 [From Betadine] soap [From Betadine] Allergy Severe Rash Verified 03/07/18 08:03 Fish Containing Products AdvReac Severe Swelling Verified 03/07/18 08:03 - Home Medications Home Medications: Ambulatory Orders Diltiazem [Cardizem -] 90 mg PO TID 07/10/16 Escitalopram Oxalate [Lexapro -] 5 mg PO DAILY 07/10/16 Metoprolol Succinate [Toprol XL -] 100 mg PO HS 07/10/16 Clonidine HCl 1 tab PO DAILY 04/01/17 Apixaban [Eliquis] 5 mg PO BID 11/18/17 Atorvastatin Calcium 20 mg PO HS 11/18/17 Methimazole [Tapazole] 5 mg PO DAILY 11/18/17 Family Disease History - Family Disease History Family Disease History: Diabetes: Mother ( age 94), Brother Review of Systems - Review of Systems Constitutional: reports: No Symptoms Eyes: reports: No Symptoms HENT: reports: No Symptoms Neck: reports: No Symptoms Cardiovascular: reports: No Symptoms Respiratory: reports: No Symptoms Gastrointestinal: reports: No Symptoms Genitourinary: reports: No Symptoms Musculoskeletal: reports: No Symptoms Integumentary: reports: No Symptoms Neurological: reports: No Symptoms Endocrine: reports: No Symptoms Hematology/Lymphatic: reports: No Symptoms Psychiatric: reports: No Symptoms Physical Examination Vital Signs: Vital Signs Temperature 97.7 F 03/07/18 07:57 Pulse Rate 56 L 03/07/18 07:57 Respiratory Rate 16 03/07/18 07:57 Blood Pressure 114/47 L 03/07/18 07:57 O2 Sat by Pulse Oximetry (%) 100 03/07/18 07:57 Constitutional: Yes: Well Nourished, No Distress, Calm Eyes: Yes: WNL, Conjunctiva Clear, EOM Intact HENT: Yes: WNL, Atraumatic, Normocephalic Neck: Yes: WNL, Supple, Trachea Midline Cardiovascular: Yes: WNL, Regular Rate and Rhythm Respiratory: Yes: WNL, Regular, CTA Bilaterally Gastrointestinal: Yes: WNL, Normal Bowel Sounds Musculoskeletal: Yes: WNL Extremities: Yes: WNL Edema: No Peripheral Pulses WNL: Yes Integumentary: Yes: WNL Neurological: Yes: WNL, Alert, Oriented ...Motor Strength: WNL Psychiatric: Yes: WNL Labs: CBC, BMP 03/07/18 07:24 Problem List - Problems (1) AV fistula occlusion Assessment/Plan: clotted right avf 1. For venogram today . Code(s): T82.898A - [facility] COMPLICATION OF VASCULAR PROSTH DEV/GRFT, INIT
[2018-03-07] MEDS ORDERED: ONDANSETRON 4 MG/2 ML VIAL IVPUSH PRN (09:46)
[2018-03-07] MEDS ORDERED: SODIUM CHLORIDE 1,000 ML IV SCH (10:00)
[2018-03-07] MEDS ORDERED: HEPARIN NA (PORCINE) 5,000 UNITS/ML 1ML VIAL IVPUSH PRN (10:08)
[2018-03-07] MEDS ORDERED: HEPARIN NA (PORCINE) 5,000 UNITS/ML 1ML VIAL ONE (10:10)
--- NOTE | 2018-03-07 10:29 | OP ---
DATE OF OPERATION: 03/07/2018 PREOPERATIVE DIAGNOSIS: Clotted right arteriovenous fistula. POSTOPERATIVE DIAGNOSIS: Clotted right arteriovenous fistula. PROCEDURE: Venogram, right arteriovenous fistula. SURGEON: Chris Márquez DO ANESTHESIA: Fractional. BLOOD LOSS: 5 mL. FINDINGS: Clotted right AV fistula. Patient is a 68-year-old female that was seen in the office 2 weeks ago with a stenotic AV fistula. She was given a surgery date to come to have a venogram of right AV fistula. She chose to have her surgery date to be after 's. Today in the holding area, it seems like the fistula is now clotted. Under ultrasound guidance, we cannot see any flow in it. So, it was decided that we would do a venogram and possible suction thrombectomy. Patient was consented for the procedure, understanding all risks, benefits, and alternatives, and taken to the operating room. Once in the operating room, placed on the operating table in supine manner. The area of the right arm was prepped and draped in standard surgical manner. We then under ultrasound guidance visualized the proximal AV fistula in the upper arm. Ten mL of lidocaine 1% was injected in the area. We took our micropuncture needle and punctured the AV fistula, and micropuncture wire was inserted. Micropuncture sheath was inserted, and short 6-Turkish sheath was inserted. We then shot our venogram showing that the fistula was completely clotted. We then placed a 0.035 floppy guidewire into the fistula and wire would not advance all the way down to the anastomosis. It would go into the collateral circulation, and at this point, we could not even get our Anne-Marie catheter down to the anastomosis. At this point, we decided there was no more intervention needed. We took out our sheath, pressure was held over the upper arm for 5 minutes. After there was no more bleeding, the areas were then dried, and Dermabond was placed. Patient was transferred to PACU in stable condition. Patient will now need new access in the form of an AV graft since she has now failed a left and right AV fistula. CHRIS MÁRQUEZ DO KILN CAR UNLOADER/[id number]
[2018-03-07 12:05] VITALS: BP 124/66; PULSE 53
[2018-03-07 13:54] VITALS: TEMP 97.5
== END 2018-03-07 12:10 | disposition home or self-care (01) ==
LOC: JASU-SURG 07:22
PROVIDERS: ATTEND Surgery Vascular Surgery
PROC: B51MYZZ Fluoroscopy of Right Upper Extremity Veins using Other Contrast (ICD-10-PCS; principal; 2018-03-07 09:00)
DX: T82.858A Stenosis of other vascular prosthetic devices, implants and grafts, initial encounter (principal); I12.0 Hypertensive chronic kidney disease with stage 5 chronic kidney disease or end stage renal disease; N18.6 End stage renal disease; Z99.2 Dependence on renal dialysis
CPT/HCPCS: 36415; 76000-TC-FY; 84132; 94760; J1644

== ENCOUNTER 2018-03-13 07:40 | Observation (INO) | payer OTHER ==
[2018-03-13 08:07] VITALS: BMI 30.7
--- NOTE | 2018-03-13 08:30 | PDOC ---
History of Present Illness - General Chief Complaint: Chest Pain Stated Complaint: Chest Pain Time Seen by Provider: 03/13/18 08:30 - History of Present Illness Initial Comments: 03/13/18 08:35 Ms. Correia is a 68 yo female w/ pmh of ESRD on dialysis (T/R/S), DM, HTN, afib on eliquis (last echo 07/19 showing LVEF 45%), hyperthryoid, HCV who presents for evaluation from dialysis center. Patient reports she has some burning sensation midline in her chest approximately 30 minutes into her 3 1/2 hour dialysis session. She had mild nausea and spit up some white saliva at this time. Patient reports she is feeling better now and denies any other symptoms. PCP - [facility] - Sandoval Cresporo - Jackson Jamison - Arsalan Past History - Past Medical History Allergies/Adverse Reactions: Allergies Allergy/AdvReac Type Severity Reaction Status Date / Time mushroom Allergy Severe Rash Verified 03/07/18 08:03 nut - unspecified [nut] Allergy Severe "HIVES,THROAT Verified 03/07/18 08:03 CLOSES" povidone-iodine Allergy Severe Rash Verified 03/07/18 08:03 [From Betadine] soap [From Betadine] Allergy Severe Rash Verified 03/07/18 08:03 Fish Containing Products AdvReac Severe Swelling Verified 03/07/18 08:03 Home Medications: Ambulatory Orders Diltiazem [Cardizem -] 90 mg PO TID 07/10/16 Escitalopram Oxalate [Lexapro -] 5 mg PO DAILY 07/10/16 Metoprolol Succinate [Toprol XL -] 100 mg PO HS 07/10/16 Clonidine HCl 1 tab PO DAILY 04/01/17 Apixaban [Eliquis] 5 mg PO BID 11/18/17 Atorvastatin Calcium 20 mg PO HS 11/18/17 Methimazole [Tapazole] 5 mg PO DAILY 11/18/17 Anemia: No Asthma: No Cancer: No Cardiac Disorders: Yes ("HEART BEATS FAST OCCAS"-on Eliquis) CVA: Yes (2012) COPD: No CHF: No (AFIB) Dementia: No Diabetes: No Dialysis: Yes () GI Disorders: No Disorders: No HTN: Yes Hypercholesterolemia: No Liver Disease: No Seizures: No Thyroid Disease: Yes (HYPOTHYROIDISM) - Surgical History Abdominal Surgery: No Appendectomy: Yes Cardiac Surgery: No Cholecystectomy: No Lung Surgery: No Neurologic Surgery: No Orthopedic Surgery: No - Suicide/Smoking/Psychosocial Hx Smoking Status: No Smoking History: Never smoked Have you smoked in the past 12 months: No Number of Cigarettes Smoked Daily: 0 Information on smoking cessation initiated: No Hx Alcohol Use: No Drug/Substance Use Hx: No Substance Use Type: None Hx Substance Use Treatment: No Review of Systems - Review of Systems Comments:: 03/13/18 09:12 GENERAL/CONSTITUTIONAL: No fever or chills. No weakness. HEAD, EYES, EARS, NOSE AND THROAT: No change in vision. No ear pain or discharge. No sore throat. CARDIOVASCULAR: No chest pain or shortness of breath RESPIRATORY: No cough, wheezing, or hemoptysis. GASTROINTESTINAL: +Nausea w/ spit-up as described. No diarrhea or constipation. GENITOURINARY: No dysuria, frequency, or change in urination. MUSCULOSKELETAL: No joint or muscle swelling or pain. No neck or back pain. SKIN: No rash NEUROLOGIC: No headache, vertigo, loss of consciousness, or change in strength/ sensation. ENDOCRINE: No increased thirst. No abnormal weight change HEMATOLOGIC/LYMPHATIC: No anemia, easy bleeding, or history of blood clots. ALLERGIC/IMMUNOLOGIC: No hives or skin allergy. *Physical Exam - Vital Signs Last Vital Signs Temp Pulse Resp BP Pulse Ox 98.6 F 52 L 18 148/75 97 03/13/18 08:03 03/13/18 08:03 03/13/18 08:03 03/13/18 08:03 03/13/18 08:03 - Physical Exam Comments: 03/13/18 09:12 GENERAL: Awake, alert, and fully oriented, in no acute distress HEAD: No signs of trauma, normocephalic, atraumatic EYES: PERRLA, EOMI, sclera anicteric, conjunctiva clear ENT: Auricles normal inspection, hearing grossly normal, nares patent, oropharynx clear without exudates. Moist mucosa NECK: Normal ROM, supple, no lymphadenopathy, JVD, or masses LUNGS: No distress, speaks full sentences, clear to auscultation bilaterally HEART: Regular rate and rhythm, normal S1 and S2, no murmurs, rubs or gallops, peripheral pulses normal and equal bilaterally. ABDOMEN: Soft, nontender, normoactive bowel sounds. No guarding, no rebound. No masses EXTREMITIES: Normal inspection, Normal range of motion, no edema. No clubbing or cyanosis. NEUROLOGICAL: Cranial nerves II through XII grossly intact. Normal speech, normal gait, no focal sensorimotor deficits SKIN: Warm, Dry, normal turgor, no rashes or lesions noted. Moderate Sedation - Procedure Monitoring Vital Signs: Procedure Monitoring Vital Signs Temperature 98.6 F 03/13/18 08:03 Pulse Rate 52 L 03/13/18 08:03 Respiratory Rate 18 03/13/18 08:03 Blood Pressure 148/75 03/13/18 08:03 O2 Sat by Pulse Oximetry (%) 97 03/13/18 08:03 ED Treatment Course - LABORATORY CBC & Chemistry Diagram: 03/13/18 09:39 03/13/18 09:39 Medical Decision Making - Medical Decision Making 03/13/18 11:25 Ms. Correia is a 68 yo female w/ pmh as described who presents for evaluation of mildine chest pain / burning as described. Patient reporting resolution of symptoms at this time however will require 2 troponin analysis for pain as well as dialysis. Discussed patient with PCP and will admit for observation and dialysis. Laboratory Results - last 24 hr 03/13/18 03/13/18 09:39 09:39 WBC 12.4 H RBC 4.95 Hgb 12.0 Hct 38.8 D MCV 78.5 L MCH 24.2 L MCHC 30.9 L RDW 19.7 H Plt Count 168 D MPV 9.0 D Absolute Neuts (auto) 8.3 H Neutrophils % 66.9 Lymphocytes % 13.6 D Monocytes % 14.5 H Eosinophils % 4.5 Basophils % 0.5 Nucleated RBC % 0 Sodium 135 L Potassium 4.5 Chloride 100 Carbon Dioxide 24 Anion Gap 11 BUN 38 H Creatinine 5.2 H Creat Clearance w eGFR 8.23 Random Glucose 96 Calcium 8.9 Total Bilirubin 0.3 AST 17 ALT 13 Alkaline Phosphatase 172 H Troponin I 0.10 H Total Protein 7.8 Albumin 3.2 L *DC/Admit/Observation/Transfer Diagnosis at time of Disposition: Dialysis patient Chest pain Qualifiers: Chest pain type: unspecified Qualified Code(s): R07.9 - Chest pain, unspecified - Discharge Dispostion Decision to Admit order: Yes - Referrals - Patient Instructions - Post Discharge Activity
--- NOTE | 2018-03-13 08:44 | HP ---
Admitting History and Physical - Primary Care Physician PCP: Rebecca Villarreal S - Admission Chief Complaint: CP during dyalisys History of Present Illness: Ms. Correia is a 68 yo female w/ pmh of ESRD on dialysis (T/R/S), DM, HTN, afib on eliquis (last echo 07/19 showing LVEF 45%), hyperthryoid, HCV who presents for evaluation for CP from dialysis center. Patient reports she has some burning sensation midline in her chest approximately 30 minutes into her 3 1/2 hour dialysis session. She had mild nausea and spit up some white saliva at this time. Patient reports she is feeling better now and denies any other symptoms. She wants to go home everette and said she did not want to come to ER but "they called the ambulance and brouyght her here". No SOB no cough/fever no dizziness falls LOC. Grand daughter at bedside. 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) Cardiovascular: Yes: CHF, HTN, Hyperlipdemia Pulmonary: Yes: Asthma, Pneumonia, Other (ILD) Gastrointestinal: Yes: Constipation, GERD Hepatobiliary: Yes: Hepatitis C Renal/: Yes: Renal Inusuff Heme/Onc: Yes: Anemia Musculoskeletal: Yes: Osteoarthritis Endocrine: Yes: Diabetes Mellitus, Hyperthyroidism, Other - Past Surgical History Past Surgical History: Yes: , Hysterectomy, Appendectomy, Colonoscopy - Smoking History Smoking history: Never smoked Have you smoked in the past 12 months: No Aproximately how many cigarettes per day: 0 - Alcohol/Substance Use Hx Alcohol Use: No History of Substance Use: reports: None - Social History Usual Living Arrangement: Yes: With Child ADL: Independent History of Recent Travel: No Home Medications - Allergies Allergies/Adverse Reactions: Allergies Allergy/AdvReac Type Severity Reaction Status Date / Time mushroom Allergy Severe Rash Verified 03/07/18 08:03 nut - unspecified [nut] Allergy Severe "HIVES,THROAT Verified 03/07/18 08:03 CLOSES" povidone-iodine Allergy Severe Rash Verified 03/07/18 08:03 [From Betadine] soap [From Betadine] Allergy Severe Rash Verified 03/07/18 08:03 Fish Containing Products AdvReac Severe Swelling Verified 03/07/18 08:03 - Home Medications Home Medications: Ambulatory Orders Diltiazem [Cardizem -] 90 mg PO TID 07/10/16 Escitalopram Oxalate [Lexapro -] 5 mg PO DAILY 07/10/16 Metoprolol Succinate [Toprol XL -] 100 mg PO HS 07/10/16 Clonidine HCl 1 tab PO DAILY 04/01/17 Apixaban [Eliquis] 5 mg PO BID 11/18/17 Atorvastatin Calcium 20 mg PO HS 11/18/17 Methimazole [Tapazole] 5 mg PO DAILY 11/18/17 Family Disease History - Family Disease History Family Disease History: Diabetes: Mother ( age 94), Brother Review of Systems - Review of Systems Constitutional: denies: Chills, Fever Eyes: denies: Blind Spots, Blurred Vision HENT: denies: Difficult Swallowing, Ear Pain, Epistaxis Neck: denies: Stiffness, Tenderness Cardiovascular: reports: Chest Pain (like burning). denies: Edema, Shortness of Breath Respiratory: denies: Cough, SOB, SOB on Exertion Gastrointestinal: denies: Abdominal Pain, Constipation, Diarrhea, Vomiting Genitourinary: denies: Dysuria, Flank Pain Musculoskeletal: denies: Back Pain, Joint Pain Integumentary: denies: Rash, Wound Neurological: denies: Change in LOC, Change in Speech, Confusion, Dizziness, Headache, Seizure, Syncope Hematology/Lymphatic: denies: Easily Bruised, Excessive Bleeding Psychiatric: denies: Altered Sleep Pattern, Anxiety, Depression Physical Examination Vital Signs: Vital Signs Temperature 98.6 F 03/13/18 08:03 Pulse Rate 52 L 03/13/18 08:03 Respiratory Rate 18 03/13/18 08:03 Blood Pressure 148/75 03/13/18 08:03 O2 Sat by Pulse Oximetry (%) 97 03/13/18 08:03 Constitutional: Yes: No Distress, Calm Eyes: Yes: Conjunctiva Clear HENT: Yes: Atraumatic Neck: Yes: Supple Cardiovascular: Yes: Regular Rate and Rhythm Respiratory: Yes: CTA Bilaterally Gastrointestinal: Yes: Soft. No: Distention Renal/: No: CVA Tenderness - Left, CVA Tenderness - Right Musculoskeletal: No: Joint Stiffness, Joint Swelling Extremities: No: Cold, Cool, Cyanosis Edema: No Integumentary: No: Rash, Venous Stasis Changes Neurological: Yes: WNL, Alert, Oriented ...Motor Strength: WNL Psychiatric: Yes: WNL, Alert, Oriented. No: Agitated, Suicidal Ideation Imaging - Results Chest X-ray: Report Reviewed Other: Report Reviewed Assessment/Plan Ms. Correia is a 68 yo female w/ pmh of ESRD on dialysis (T/R/S), DM, HTN, afib on eliquis (last echo 07/19 showing LVEF 45%), hyperthryoid, HCV who presents for evaluation of CP/GERD from dialysis center. d/w cardiology dr Hernandez if 2 sets CE negative pt can go home; d/w renal dr Paz pt to be dyalized today then f/u outpt schedule d/w vascular sx dr Nick: outpt f/u for AVFd/w pt and staff
--- NOTE | 2018-03-13 09:47 | EKG ---
Test Reason : Blood Pressure : / mmHG Vent. Rate : 052 BPM Atrial Rate : 052 BPM P-R Int : 328 ms QRS Dur : 102 ms QT Int : 478 ms P-R-T Axes : 024 -33 121 degrees QTc Int : 444 ms SINUS BRADYCARDIA WITH 1ST DEGREE A-V BLOCK LEFT AXIS DEVIATION CANNOT RULE OUT ANTERIOR INFARCT , AGE UNDETERMINED T WAVE ABNORMALITY, CONSIDER LATERAL ISCHEMIA ABNORMAL ECG WHEN COMPARED WITH ECG OF 26-NOV-2017 10:12, NO SIGNIFICANT CHANGE WAS FOUND Confirmed by NIKI PERDOMO MD ([id number]) on 03/13/2018 9:47:01 AM Referred By: Confirmed By:NIKI PERDOMO MD
--- NOTE | 2018-03-13 10:07 | PDOC ---
Attending Attestation - HPI HPI: 03/13/18 10:21 The patient is a 68 year old female, with a significant PMH of ESRD on dialysis (/), diabetes mellitus, hypertension, atrial fibrillation on Eliquis, hyperthyroidism, HCV, who presents to the emergency department from dialysis with an episode of midline chest burning sensation, dizziness and nausea with associated white sputum. The patient states the episode occurred 30 minutes in her dialysis session. The patient states at presentation she now feels fine and denies complaints. The patient states that yesterday she felt fine and of her normal health. The patient denies any sick contacts. Denies any recent fevers or chills. The patient states she did not experienced any chest pain during the episode this morning. The patient denies shortness of breath, or headache. Denies fever, chills,diarrhea and constipation. Denies dysuria, frequency, urgency and hematuria. Allergies: mushroom nut unspecified, povidone iodine, soap, (More) PCP: Dr Villarreal. Documentation prepared by Cresencio Olivera, acting as medical coordinator pesticide use for Dung Boggs MD. - Physicial Exam PE: 03/13/18 10:22 Vitals: Triage Vital signs reviewed General Appearance: no acute distress, well nourished well developed, Neck: Supple;No Nuchal rigidity Chest Wall: Nontender Cardiac: Regular rate and rhythm, no murmurs, no rubs, no gallops, Lungs: Clear to auscultation bilateral, good air movement bilaterally, Abdomen: Soft, nondistended, normal bowel sounds, nontender to palpation Rectal: Exam deferred Extremities: Full range of motion to all extremities, no cyanosis, clubbing, or edema Skin: Warm and dry, no rashes or lesions, no petechiae Psych: normal mood, normal affect <Cresencio Olivera - Last Filed: 03/13/18 10:21> - Resident Resident Name: Adam Medrano - ED Attending Attestation I have performed the following: I have examined & evaluated the patient, The case was reviewed & discussed with the resident, I agree w/resident's findings & plan, Exceptions are as noted - Medical Decision Making 03/13/18 14:35 68 years old end-stage renal disease on dialysis presents to the emergency department with chest tightness dizziness nausea vomiting sent to the ED unable to complete her dialysis Currently feels much better. Seen and evaluated by her primary care provider Plan is to arrange dialysis here in the emergency department today we'll observe for 2 troponins after dialysis acute troponin negative patient discharged home. <Dung Boggs - Last Filed: 03/13/18 14:36> Heart Score/ECG Review - History History: Slightly suspicious - Electrocardiogram EKG: Normal - Age Age: >/= 65 - Risk Factors Risk Factors Heart Score: Yes Hx Hypercholesterolemia, Yes Hx Hypertension, Yes Hx Diabetes Based on the list above the patient has:: >/=3 risk factors or Hx atherosclerotic disease - Troponin Troponin: </= normal limit - Score Heart Score - Total: 4 - ECG Impressions Comment:: EKG performed at 812 demonstrates sinus rhythm [address] elevations noted T- wave inversions. Interpreted by me <Dung Boggs - Last Filed: 03/13/18 14:36>
[2018-03-13 10:22] LABS: BASO % 0.5 % (0-2.0); EOS % 4.5 % (0-4.5); HEMATOCRIT 38.8 % (32.4-45.2); LYMPH % 13.6 % (8-40); MCH 24.2 pg (25.7-33.7); MCHC 30.9 g/dl (32.0-36.0); MEAN CELL VOLUME 78.5 fl (80-96); MONO % 14.5 % (3.8-10.2); NEUT % 66.9 % (42.8-82.8); PLATELET COUNT 168 K/MM3 (134-434); RBC 4.95 M/mm3 (3.60-5.2); RDW 19.7 % (11.6-15.6); WHITE BLOOD COUNT 12.4 K/mm3 (4.0-10.0)
[2018-03-13 10:31] LABS: ALBUMIN 3.2 g/dl (3.4-5.0); ALK PHOS 172 U/L (45-117); ANION GAP 11 MMOL/L (8-16); BILIRUBIN,TOTAL 0.3 mg/dL (0.2-1); BLOOD UREA NITROGEN 38 mg/dL (7-18); CALCIUM 8.9 mg/dL (8.5-10.1); CHLORIDE 100 mmol/L (98-107); CO2 24 mmol/L (21-32); CREATININE 5.2 mg/dL (0.55-1.3); GLUCOSE,RANDOM 96 mg/dL (74-106); POTASSIUM 4.5 mmol/L (3.5-5.1); SGOT/AST 17 U/L (15-37); SGPT/ALT 13 U/L (13-61); SODIUM 135 mmol/L (136-145); TOT PROT 7.8 g/dl (6.4-8.2)
--- NOTE | 2018-03-13 12:25 | CON.CARD ---
Cardiology Consult (text) - Consultation Consultation Note: Chief Complaint: cp History of Present Illness: 68 yo F here with cp. Was getting HD and felt mild dizzy and left chest burning. Resolved in few mins and pt wanted to continue HD but sent to ER instead. Feels well now, asking to go home. No cp sob palps dizzy loc pnd orthopnea le edema. Sees dr gutierrez for cardio. 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) Cardio/Vascular: Yes: CHF (end diastolic), HTN, Hyperlipdemia Pulmonary: Yes: Asthma, Pneumonia, Other (ILD) Gastrointestinal: Yes: Constipation, GERD Hepatobiliary: Yes: Hepatitis C Renal/: Yes: Renal Inusuff Musculoskeletal: Yes: Osteoarthritis Endocrine: Yes: Diabetes Mellitus (diabetic retinopathy ( treated ) and neuropathy), Hyperthyroidism (Graves Disease with thyroid nodule), Other ( THYROID DISEASE) - Past Surgical History Past Surgical History: Yes: , Hysterectomy, Appendectomy, Colonoscopy - Alcohol/Substance Use Hx Alcohol Use: No History of Substance Use: reports: None - Smoking History Smoking history: Unknown if ever smoked Have you smoked in the past 12 months: No Aproximately how many cigarettes per day: 0 - Social History Usual Living Arrangement: Alone ADL: Independent History of Recent Travel: No Home Medications - Allergies Allergies/Adverse Reactions: Allergies Allergy/AdvReac Type Severity Reaction Status Date / Time mushroom Allergy Severe Rash Verified 03/07/18 08:03 nut - unspecified [nut] Allergy Severe "HIVES,THROAT Verified 03/07/18 08:03 CLOSES" povidone-iodine Allergy Severe Rash Verified 03/07/18 08:03 [From Betadine] soap [From Betadine] Allergy Severe Rash Verified 03/07/18 08:03 Fish Containing Products AdvReac Severe Swelling Verified 03/07/18 08:03 - Home Medications Ambulatory Orders Diltiazem [Cardizem -] 90 mg PO TID 07/10/16 Escitalopram Oxalate [Lexapro -] 5 mg PO DAILY 07/10/16 Metoprolol Succinate [Toprol XL -] 100 mg PO HS 07/10/16 Clonidine HCl 1 tab PO DAILY 04/01/17 Apixaban [Eliquis] 5 mg PO BID 11/18/17 Atorvastatin Calcium 20 mg PO HS 11/18/17 Methimazole [Tapazole] 5 mg PO DAILY 11/18/17 Family Disease History - Family Disease History Family Disease History: Diabetes: Mother (alive 91), Brother Review of Systems - Review of Systems Constitutional: reports: Chills. denies: Fever Eyes: denies: Eye Pain HENT: denies: Nasal Congestion Neck: denies: Stiffness Cardiovascular: denies: Palpitations Respiratory: denies: Orthopnea, PND Gastrointestinal: denies: Diarrhea, Rectal Bleeding Genitourinary: denies: Burning, Hematuria Musculoskeletal: denies: Muscle Pain Integumentary: denies: Rash Neurological: denies: Numbness, Seizure, Syncope Endocrine: denies: Excessive Sweating Hematology/Lymphatic: denies: Excessive Bleeding Vital Signs: Vital Signs Period Temp Pulse Resp BP Sys/Chavarria Pulse Ox Last 24 Hr 98.6 F 52-60 16-18 148-166/71-75 95-97 Constitutional: Yes: Well Nourished, No Distress Eyes: No: Sclera Icterus HENT: No: Nasal Congestion Respiratory: Yes: CTA Bilaterally. No: Accessory Muscle Use, Rales, Wheezes Gastrointestinal: Yes: Normal Bowel Sounds. No: Distention, Hepatomegaly, Palpable Mass, Tenderness Cardiovascular: Yes: Regular Rate and Rhythm JVD: No Carotid Bruit: No PMI: Non-Displaced Heart Sounds: Yes: S1, S2. No: Gallop Murmur: No: Systolic Murmur, Diastolic Murmur Extremities: No: Cool, Cyanosis Edema: No Peripheral Pulses: 2+ Left Carotid, 2+ Right Carotid, 2+ Left Doralis Pedis, 2+ Right Dorsalis Pedis Integumentary: No: Jaundice Neurological: Yes: Alert, Oriented (x3) Psychiatric: No: Agitated - Other Data Labs, Other Data: Laboratory Last Values WBC 12.4 K/mm3 (4.0-10.0) H 03/13/18 09:39 RBC 4.95 M/mm3 (3.60-5.2) 03/13/18 09:39 Hgb 12.0 GM/dL (10.7-15.3) 03/13/18 09:39 Hct 38.8 % (32.4-45.2) D 03/13/18 09:39 MCV 78.5 fl (80-96) L 03/13/18 09:39 MCH 24.2 pg (25.7-33.7) L 03/13/18 09:39 MCHC 30.9 g/dl (32.0-36.0) L 03/13/18 09:39 RDW 19.7 % (11.6-15.6) H 03/13/18 09:39 Plt Count 168 K/MM3 (134-434) D 03/13/18 09:39 MPV 9.0 fl (7.5-11.1) D 03/13/18 09:39 Absolute Neuts (auto) 8.3 K/mm3 (1.5-8.0) H 03/13/18 09:39 Neutrophils % 66.9 % (42.8-82.8) 03/13/18 09:39 Lymphocytes % 13.6 % (8-40) D 03/13/18 09:39 Monocytes % 14.5 % (3.8-10.2) H 03/13/18 09:39 Eosinophils % 4.5 % (0-4.5) 03/13/18 09:39 Basophils % 0.5 % (0-2.0) 03/13/18 09:39 Nucleated RBC % 0 % (0-0) 03/13/18 09:39 Sodium 135 mmol/L (136-145) L 03/13/18 09:39 Potassium 4.5 mmol/L (3.5-5.1) 03/13/18 09:39 Chloride 100 mmol/L (98-107) 03/13/18 09:39 Carbon Dioxide 24 mmol/L (21-32) 03/13/18 09:39 Anion Gap 11 MMOL/L (8-16) 03/13/18 09:39 BUN 38 mg/dL (7-18) H 03/13/18 09:39 Creatinine 5.2 mg/dL (0.55-1.3) H 03/13/18 09:39 Creat Clearance w eGFR 8.23 (>60) 03/13/18 09:39 Random Glucose 96 mg/dL (74-106) 03/13/18 09:39 Calcium 8.9 mg/dL (8.5-10.1) 03/13/18 09:39 Total Bilirubin 0.3 mg/dL (0.2-1) 03/13/18 09:39 AST 17 U/L (15-37) 03/13/18 09:39 ALT 13 U/L (13-61) 03/13/18 09:39 Alkaline Phosphatase 172 U/L (45-117) H 03/13/18 09:39 Troponin I 0.10 ng/ml (0.00-0.05) H 03/13/18 09:39 Total Protein 7.8 g/dl (6.4-8.2) 03/13/18 09:39 Albumin 3.2 g/dl (3.4-5.0) L 03/13/18 09:39 ECG: sr, 1st avb, lat twis, no st changes, no sig change prior cxr: no sig chf MPI 07/19 (marjan): no isch STs, pt in afib. mid-AW ischemia, distal IW ischemia. fixed apical defect. EF 30%, no TID Echo 07/19: moderate LVE, mildly decr'd LVEF (45%), GLOBAL. nl RV size, mild RV hypo. mild LAE. mod MR. mild pHTN (RVSP 42). nl LAP. a/p: cp: -atypical cp during HD, resolved quickly -ecg w/o sig change from prior -first trop in intermediate range, consistent with prior baseline values, not c/ w acs. -would check one more trop and if remains benign then would dc from cardiac pov. CAD: -as above -2017 stress test with ischemia in RCA and also LAD distributions. -she has been asymptomatic (walks with walker on street at baseline) -cont home med regimen: AC (no ASA), statin, bb -plan is for outp cath which is scheduled for next mos per pt. chronic syst/diast CHF (mixed), moderate MR, mild pHTN: -pt with known mild to moderate vs moderate decrease in LVEF. ? isch CMP ( inferoposterior WMAs worse on prior hosp echo review here), ? nonischemic ( uncontrolled DM long time, global appearance of hypokinesis on recent imaging) -has been clinically euvolemic for long time, with volume status stable with HD mgmt -continues to appear euvolemic here, outpt wt trend (pre and post dialysis wts) stable. -no audible MR murmur, echo images not concerning for severe MR previously ( serial studies) parox AF: -pt incidentally noted to be in afib during stress test 2018 -no recurrence since -on good AVN louis regimen for PSVT prophylaxis--continue same -on Eliquis PSVT: -frequent episodes of very rapid SVT during prior hospital stays, whenever meds are interrupted -tolerating home metoprolol and diltiazem regimen long time, with good arrhythmia control. HTN: -stable overall -same meds ESRD on HD: -dialysis per renal pulm fibrosis: -hospitalized here previously with unexplained interstitial lung dz picture, no specific dx made on bronch--treated empirically with steroids with good resolution; -per pmd h/o posterior circulation CVA: -on AC now (Aggrenox stopped), statin hyperthyroidism: -on methimazole, sees dr chiu for endo
[2018-03-13] MEDS ORDERED: SODIUM CHLORIDE 250 ML IV PRN (13:30)
[2018-03-13] MEDS ORDERED: HEPARIN NA (PORCINE) 5,000 UNITS/ML 1ML VIAL IVPUSH ONE (13:30)
--- NOTE | 2018-03-13 14:35 | CONSULT ---
Consult - text type - Consultation Consultation Note: Renal consult for ESRD on HD This is a 68 year old AA woman with hx of ESRD no HD, CAD, Aib, CHF, Hyperthyroidism, Chronic anemia, DM, CVA who presented with complaints of chest pain and admitted for r/o ACS. Pt was at dialysis but after 30 minutes she started to experience left chest burning and pain and was sent to the ER. Pt currently on dialysis as an inpatient and does not have any CP. no SOB, palpitations, N/V, Abd pain. Feels comfortable on dialysis. Wants to go home. PMhx: as above allergies: as listed in EMR Family Hx: NC Social Hx: No T/A/D ROS: as per HPI Home Medications Medication Instructions Recorded Diltiazem [Cardizem -] 90 mg PO TID 07/10/16 Escitalopram Oxalate [Lexapro -] 5 mg PO DAILY 07/10/16 Metoprolol Succinate [Toprol XL -] 100 mg PO HS 07/10/16 Clonidine HCl 1 tab PO DAILY 04/01/17 Apixaban [Eliquis] 5 mg PO BID 11/18/17 Atorvastatin Calcium 20 mg PO HS 11/18/17 Methimazole [Tapazole] 5 mg PO DAILY 11/18/17 Vital Signs Temperature 96.8 F L 03/13/18 12:30 Pulse Rate 58 L 03/13/18 13:30 Respiratory Rate 18 03/13/18 13:30 Blood Pressure 155/80 03/13/18 13:30 O2 Sat by Pulse Oximetry (%) 95 03/13/18 12:27 NAD awake and alert neck supple, no JVD RRR, No M/R CTA, no rales soft NT/ND trace edema, no clubbing or cyanosis + AVF No focal neurologic defects CBC, BMP 03/13/18 09:39 03/13/18 09:39 Current Medications Sodium Chloride (Normal Saline -) 250 mls @ 3,000 mls/hr IV PRN PRN PRN Reason: Hypotension during Dialysis Stop: 03/14/18 13:29 68 year old AA woman with hx of ESRD no HD, CAD, Aib, CHF, Hyperthyroidism, Chronic anemia, DM, CVA who presented with complaints of chest pain and admitted for r/o ACS #Chest pain r/o ACS (cardiac enzymes negative x 1) #Suspected CAD with known abnormal stress test #ESRD on HD #CKD related Anemia Pt is now chest pain free, cardiac enzymes negative x 1 repeat enzymes to be checked following dialysis tolerating dialysis well Renal diet Hgb at goal, no REYNA needed discharge planning as per primary Thank you Jon Paz DO
[2018-03-13] MEDS: HEPARIN NA (PORCINE) 5,000 UNITS/ML 1ML VIAL IVPUSH SCH ×2 (15:10→15:11)
[2018-03-13 17:22] VITALS: BP 128/62; PULSE 58; TEMP 97
--- NOTE | 2018-03-13 18:08 | DS ---
Physical Examination Vital Signs: Vital Signs Temperature 97.0 F L 03/13/18 17:21 Pulse Rate 58 L 03/13/18 17:21 Respiratory Rate 16 03/13/18 17:21 Blood Pressure 128/62 03/13/18 17:21 O2 Sat by Pulse Oximetry (%) 96 03/13/18 17:21 Findings/Remarks: first trop 0.10 per cardiology at baseline second trop 0.09 no new c/o dw cardio dr Hernandez OPK to DC pt home and f/u outpt as advised; pt strongly wants to go home today f/u outpt PCP, cardiology within 1 week; HD per renal; aslo pt to f/u with GI for GERD, pulm for h/o COPD/IT lung ds; endocrine thyroid ds and with heme for high WBC 12k now, had some leukocytosis in the past , pt to see dr Harvey outpt also health maintenancve to be done outpt pap GVYN mammogram BDT see PE this am RTER if worse or recurrent co; take meds as advised Labs: CBC, BMP 03/13/18 09:39 03/13/18 09:39 Discharge Summary Reason For Visit: CHEST PAIN,DIALYSIS Current Active Problems Chest pain (Acute) Dialysis patient (Acute) Procedures: Principal: CP JOHNNY CE x2 seen by cardiology Other Procedures: HD per renal; seen by davey shanks also for AVF Hospital Course: improved with above; DC home and f/u as advised Condition: Improved - Instructions Diet, Activity, Other Instructions: f/u PCP cardiology and vascular surgery within 1-2 weeks; dyalisis per renal; labs f/u outpt; further cardiac management (stent) per cardiology; take medications as ordered per cardiology; also f/u with DEVELOPMENTAL WRITING INSTRUCTOR, GI, pulmonary and endocrine as advised; heme eval dr Harvey for increased WBC outpt; falls PFX; RTER if recurrent CP/SOB or any new c/o; Referrals: Rebecca Villarreal [Staff Physician] - Jon Paz MD [Staff Physician] - Chris Nick MD [Staff Physician] - Garfield Arriaza MD [Staff Physician] - Katherine Natarajan MD [Staff Physician] - Dominic Harvey MD [Staff Physician] - Tom Morley MD [Staff Physician] - Russell Bonilla MD, MD [Staff Physician] - Disposition: VNS/HOME HEALTH CARE - Home Medications Comprehensive Discharge Medication List: Ambulatory Orders Diltiazem [Cardizem -] 90 mg PO TID 07/10/16 Escitalopram Oxalate [Lexapro -] 5 mg PO DAILY 07/10/16 Metoprolol Succinate [Toprol XL -] 100 mg PO HS 07/10/16 Clonidine HCl 1 tab PO DAILY 04/01/17 Apixaban [Eliquis] 5 mg PO BID 11/18/17 Atorvastatin Calcium 20 mg PO HS 11/18/17 Methimazole [Tapazole] 5 mg PO DAILY 11/18/17
[2018-03-13] MEDS ORDERED: APIXABAN 5 MG TABLET PO SCH (22:00)
[2018-03-13] MEDS ORDERED: dilTIAZem HCL 30 MG TABLET (FP) PO SCH (22:00)
[2018-03-13] MEDS ORDERED: ATORVASTATIN CA 20 MG TABLET (FP) PO SCH (22:00)
[2018-03-14] MEDS ORDERED: METHIMAZOLE 5 MG TABLET (FP) PO SCH (10:00)
[2018-03-14] MEDS ORDERED: cloNIDine HCL 0.1 MG TABLET PO SCH (10:00)
[2018-03-14] MEDS ORDERED: ESCITALOPRAM OXALATE 10 MG TABLET (FP) PO SCH (10:00)
[2018-03-15 11:16] LABS: HEP.C VIRUS AB >11.0 s/co ratio (0.0-0.9)
== END 2018-03-13 19:00 | disposition home health service (06) ==
LOC: JER 07:40 → JERBED 11:24 → J7W 17:30
PROVIDERS: ADMIT Internal Medicine; ATTEND Internal Medicine
PROC: 3E033GC Introduction of Other Therapeutic Substance into Peripheral Vein, Percutaneous Approach (ICD-10-PCS; principal; 2018-03-13)
DX: R07.89 Other chest pain (principal); E11.22 Type 2 diabetes mellitus with diabetic chronic kidney disease; I12.0 Hypertensive chronic kidney disease with stage 5 chronic kidney disease or end stage renal disease; N18.6 End stage renal disease; Z99.2 Dependence on renal dialysis; I48.0 Paroxysmal atrial fibrillation; I50.42 Chronic combined systolic (congestive) and diastolic (congestive) heart failure; I25.10 Atherosclerotic heart disease of native coronary artery without angina pectoris; J84.10 Pulmonary fibrosis, unspecified; J45.909 Unspecified asthma, uncomplicated; E05.20 Thyrotoxicosis with toxic multinodular goiter without thyrotoxic crisis or storm; E05.90 Thyrotoxicosis, unspecified without thyrotoxic crisis or storm; B18.2 Chronic viral hepatitis C; K21.9 Gastro-esophageal reflux disease without esophagitis; Z86.73 Personal history of transient ischemic attack (TIA), and cerebral infarction without residual deficits; Z79.01 Long term (current) use of anticoagulants; Z91.010 Allergy to peanuts; Z91.013 Allergy to seafood; D64.89 Other specified anemias
CPT/HCPCS: 36415; 71045-TC-FY; 80053; 80074; 82550; 84484; 85025; 86803; 93005; 93010; 96374; 96375; 99282-25; G0378; J1644

== ENCOUNTER 2018-05-07 09:22 | Day surgery (SDC) | payer OTHER ==
--- NOTE | 2018-05-07 10:04 | PN ---
Progress Note, Physician Chief Complaint: in bed NAD VSS afebrile feels well but nervous no CP/SOB, fever/cough, pain anywhere awaiting AVF surgery stopped eliquis 3 days ago aware of possible cardiac / neuro (NE/CVA) risks grand daughter at bedside had dialysis yesterday via chest catheter, now awaiting K level cleared by cardio dr Arriaza - d/w dr Arriaza, see cardiac note d/w pt f/u outpt (GI for hep C, guaiac + stools, renal, vascular sx PCP and cardiology) - Objective Vital Signs: Vital Signs Temperature 98.1 F 05/07/18 09:53 Pulse Rate 58 L 05/07/18 09:53 Respiratory Rate 16 05/07/18 09:53 Blood Pressure 110/52 L 05/07/18 09:53 O2 Sat by Pulse Oximetry (%) 98 05/07/18 09:53 Constitutional: Yes: No Distress, Calm Eyes: Yes: Conjunctiva Clear HENT: Yes: Atraumatic Neck: Yes: Supple Cardiovascular: Yes: Regular Rate and Rhythm Respiratory: Yes: CTA Bilaterally Gastrointestinal: Yes: Soft. No: Tenderness Genitourinary: No: CVA Tenderness - Left, CVA Tenderness - Right Musculoskeletal: No: Joint Stiffness, Joint Swelling Extremities: No: Cold, Cool, Cyanosis Edema: No Integumentary: No: Bruising, Erythema, Rash, Venous Stasis Changes Neurological: Yes: WNL, Alert, Oriented ...Motor Strength: WNL Psychiatric: Yes: WNL, Alert, Oriented. No: Agitated, Suicidal Ideation - ....Imaging Other: Report Reviewed Assessment/Plan 68 YOF ASHD/CAD, CHF, low EF; AFib, CVA, HTN, DM diet controlled, ESRD/HD, anemia, Hep C+, admitted for L AVF placement off eliquis for 3 days is NPO today cleared by cardiology see note check K; VSS proceed with AVF as planned; risks of cardiac/neuro off eliquis d/w pt; restart eliquis postop when OK with surgery f/u as advised see above d/w pt and family at bedside
[2018-05-07] MEDS ORDERED: HEPARIN NA (PORCINE) 5,000 UNITS/ML 1ML VIAL ONE (12:34)
[2018-05-07] MEDS ORDERED: PAPAVERINE HCL 30 MG/1 ML 10 ML VIAL NR ONE (12:34)
[2018-05-07] MEDS ORDERED: POVIDONE-IODINE OINTMENT 10% - 28.4 GM TUBE ONE (12:34)
[2018-05-07] MEDS ORDERED: LIDOCAINE HCL 1%, 10 MG/ML (20ML VIAL) ONE (12:34)
--- NOTE | 2018-05-07 12:48 | HP ---
History & Physical Update - History History: No Change - Physical Physical: No Change - Assessment Assessment: No Change - Plan Plan: No Change
[2018-05-07] MEDS ORDERED: MIDAZOLAM HCL 2 MG/2 ML SINGLE DOSE VIAL ONE (13:06)
[2018-05-07] MEDS ORDERED: ceFAZolin SODIUM 1 GM VIAL IVPB ONE (13:10)
[2018-05-07] MEDS ORDERED: ceFAZolin SODIUM 1 GM VIAL ONE (13:17)
[2018-05-07] MEDS ORDERED: PROPOFOL 20 ML ONE (13:26)
[2018-05-07] MEDS ORDERED: LIDOCAINE HCL 1%, 10 MG/ML (20ML VIAL) NR ONE (13:27)
[2018-05-07] MEDS ORDERED: HEPARIN NA (PORCINE) 5,000 UNITS/ML 1ML VIAL IVPUSH ONE (13:48)
[2018-05-07] MEDS ORDERED: ONDANSETRON 4 MG/2 ML VIAL IVPUSH PRN (15:16)
--- NOTE | 2018-05-07 15:21 | OP ---
Operative Note - Note: Operative Date: 05/07/18 Pre-Operative Diagnosis: ESRD Operation: Left Arteriovenous graft Surgeon: Jonas Oakes Ambulance Driver: Kristen Norwood Anesthesiologist/PATENTED HOGSHEAD ASSEMBLER: Malaika Morales MD Anesthesia: Local Estimated Blood Loss (mls): 15 Operative Report Dictated: Yes
--- NOTE | 2018-05-07 15:22 | SURG ---
Surgery Quality Head Note Quality Head: Kristen Norwood PA-C Date of Service: 05/07/18 Diagnosis: esrd Procedure: left arm arteriovenous graft I was present for the entirety of the operative procedure. For further detail, please refer to operative report. Visit type - Case Type Case Type: Scheduled - Emergency Emergency Visit: No - New patient This patient is new to me today: Yes Date on this admission: 05/07/18
[2018-05-07 16:41] VITALS: TEMP 97.7
[2018-05-07 17:03] VITALS: BP 125/63; PULSE 72
--- NOTE | 2018-05-15 14:26 | OP ---
DATE OF OPERATION: 05/07/2018 SURGEON: Jonas Esposito MD FRONT OFFICE SPEC: BEN Wagner PROCEDURE: Placement of arteriovenous graft, left arm. ANESTHESIA: Fractional. ANESTHESIOLOGIST: Malaika Morales MD OPERATIVE FINDINGS: The left axillary vein and brachial artery were patent. OPERATIVE PROCEDURE: Following routine patient identification with side and site verification, intravenous sedation was established. The left arm and axilla were prepped with ChloraPrep. Time-out was performed. Xylocaine 1% was infiltrated in the axilla, and a longitudinal incision was made. Subcutaneous tissues were divided using cautery for hemostasis. The axillary vein was identified and was mobilized from the surrounding tissues. It was encircled proximally and distally with vessel loops. Side branches were ligated and divided. The wound was packed with moist gauze. A second incision was then made over the brachial pulse proximal to the antecubital crease. The brachial artery was mobilized and secured with a vessel loops. Side branches were ligated and divided. A curved metal tunneler was then passed between the 2 incisions, and a 4-7 mm PTFE graft was passed through the tunneler. Care was taken not to twist it. The brachial artery was then occluded with the vessel loops and opened on exposed surface with a 6-mm arteriotomy. The small end of the graft was beveled and anastomosed to the side of the artery with a running suture of 6-0 Prolene. Prior to completion of the suture line, the graft was occluded with a clamp, and the artery was allowed to back-bleed and flush. The suture line was then completed. The artery was released to restore flow to the distal arm. Bleeding from the suture line was controlled with Surgicel. Attention was then turned to the axilla. The axillary vein was occluded with a small bulldog clamp proximally and vessel loop distally. A longitudinal venotomy was made measuring approximately 15 mm. The large end of the graft was then beveled and anastomosed to the side of the vein with running suture of 6-0 Prolene. Prior to completion of the suture line, the vein was allowed to back-bleed and flush, and the graft was flushed. The graft was filled with heparin solution, and then, the suture line was completed. All clamps were removed, and there was good flow through the graft with a palpable pulse present. Bleeding from the suture lines was controlled with Surgicel. When hemostasis was adequate, the wound was closed with interrupted suture of 3-0 Vicryl and skin paradise. Sterile dressings were applied, and the patient was taken to the recovery room in stable condition. JONAS ESPOSITO M.D. [id number]
--- NOTE | 2018-05-19 11:39 | OP ---
DATE OF OPERATION: 05/07/2018 SURGEON: Jonas Esposito MD FISH RECEIVER: BEN Wagner PROCEDURE: Placement of arteriovenous graft, left arm. PREOPERATIVE DIAGNOSIS: End-stage renal disease. POSTOPERATIVE DIAGNOSIS: End-stage renal disease. ANESTHESIA: Fractional. ANESTHESIOLOGIST: Malaika Morales MD OPERATIVE FINDINGS: The left axillary vein and brachial artery were patent with normal caliber. OPERATIVE PROCEDURE: Following routine patient identification with side and site verification, left arm was prepped with ChloraPrep. Timeout was performed. Lidocaine was infiltrated in the skin at the sites of incision. An incision was made in the left axilla and carried through the subcutaneous tissues using cautery for hemostasis. The axillary vein was identified and was mobilized from the surrounding tissues. Side branches were ligated with silk ties and divided. Incision was then made over the brachial pulse in the distal arm proximal to the antecubital crease. Brachial artery was identified and mobilized and secured with vessel loops. Side branches were ligated and divided. A curved metal tunnel was passed through the subcutaneous tissues between the 2 incisions, over the anterior aspect of the arm. A 4-7 mm PTFE graft was then passed through the tunnel with care not to twist it. The brachial artery was occluded with vessel loops and opened on exposed surface with a 6-mm arteriotomy. The small ends of the graft were beveled and anastomosed to the side of the artery with running suture of 6-0 Prolene. Prior to completion of the suture line, the graft was occluded with vascular clamp, and the artery was allowed to back bleed and flush. The suture line was completed, and the artery was released. Bleeding from the suture line was controlled with Surgicel. The graft was pulled taut in its tunnel, and then, the axillary vein was occluded with vessel loop and bulldog clamp. A longitudinal venotomy measuring approximately 2 cm was made in the vein. The end of the graft was beveled and anastomosed to the side of the vein with running suture of 6-0 Prolene. Prior to completion of the suture line, the vein was allowed to back bleed and flush, and the graft was flushed. The lumen was filled with heparin solution. Suture line was completed. All vessels were released. There was good flow through both anastomoses with a strong pulse in the graft. Surgicel was applied to control bleeding from the suture line. When it was dry, the wound was closed with interrupted suture of 3-0 Vicryl and skin paradise. Sterile dressings were applied, and the patient was taken to the recovery room in stable condition. JONAS ESPOSITO M.D. [id number]
== END 2018-05-07 17:05 | disposition home or self-care (01) ==
LOC: JASU-SURG 09:22
PROVIDERS: ATTEND Surgery
PROC: 03180JD Bypass Left Brachial Artery to Upper Arm Vein with Synthetic Substitute, Open Approach (ICD-10-PCS; principal; 2018-05-07 11:00)
DX: I12.0 Hypertensive chronic kidney disease with stage 5 chronic kidney disease or end stage renal disease (principal); E11.22 Type 2 diabetes mellitus with diabetic chronic kidney disease; N18.6 End stage renal disease; Z99.2 Dependence on renal dialysis
CPT/HCPCS: 36415; 84132; 94760; J1644

== ENCOUNTER 2019-03-14 08:32 | Inpatient (IN) | payer OTHER ==
--- NOTE | 2019-03-14 09:14 | PDOC ---
History of Present Illness - General Chief Complaint: Pain, Acute Stated Complaint: ABD.PAIN/VOMITING/SOB Time Seen by Provider: 03/14/19 09:06 Past History - Past Medical History Allergies/Adverse Reactions: Allergies Allergy/AdvReac Type Severity Reaction Status Date / Time mushroom Allergy Severe Rash Verified 03/14/19 08:53 nut - unspecified [nut] Allergy Severe "HIVES,THROAT Verified 03/14/19 08:53 CLOSES" povidone-iodine Allergy Severe Rash Verified 03/14/19 08:53 [From Betadine] soap [From Betadine] Allergy Severe Rash Verified 03/14/19 08:53 Fish Containing Products AdvReac Severe Swelling Verified 03/14/19 08:53 Home Medications: Ambulatory Orders Diltiazem [Cardizem -] 60 mg PO BID 07/10/16 Escitalopram Oxalate [Lexapro -] 5 mg PO DAILY 07/10/16 Apixaban [Eliquis] 5 mg PO BID 11/18/17 Methimazole [Tapazole] 5 mg PO BID 11/18/17 Atorvastatin Ca [Lipitor] 40 mg PO DAILY 03/14/19 Furosemide 80 mg PO DAILY 03/14/19 Lisinopril 5 mg PO BID 03/14/19 Metoprolol Tartrate 100 mg PO BID 03/14/19 Albuterol 2.5/Ipratropium 0.5 [Duoneb -] 1 amp NEB RTID amp 03/21/19 Budesonide/Formeterol Fumarate [SYMBICORT 160/4.5mcg -] 2 puff IH BID inhaler 03/21/19 Cefuroxime Axetil [Ceftin -] 500 mg PO Q12H #10 tablet 03/21/19 Anemia: No Asthma: No Cancer: No Cardiac Disorders: No CVA: No COPD: No CHF: No Dementia: No Diabetes: Yes (under control) Dialysis: Yes () GI Disorders: No Disorders: No HTN: Yes Hypercholesterolemia: Yes Liver Disease: No Seizures: No Thyroid Disease: Yes - Surgical History Abdominal Surgery: No Appendectomy: Yes Cardiac Surgery: No Cholecystectomy: No Lung Surgery: No Neurologic Surgery: No Orthopedic Surgery: No - Immunization History Immunization Up to Date: No - Psycho Social/Smoking Cessation Hx Smoking Status: No Smoking History: Unknown if ever smoked Have you smoked in the past 12 months: No Number of Cigarettes Smoked Daily: 0 Information on smoking cessation initiated: No Hx Alcohol Use: No Drug/Substance Use Hx: No Substance Use Type: None Hx Substance Use Treatment: No *Physical Exam - Vital Signs Last Vital Signs Temp Pulse Resp BP Pulse Ox 98.8 F 72 16 135/74 100 03/14/19 08:36 03/14/19 08:36 03/14/19 08:36 03/14/19 08:36 03/14/19 08:36 ED Treatment Course - LABORATORY CBC & Chemistry Diagram: 03/20/19 06:40 03/21/19 07:00 Medical Decision Making - Medical Decision Making 03/14/19 09:16 HPI: 69yo F hx ESRD on dialysis (T/R/S, last , skipped today), DM, HTN, afib on eliquis (last echo 07/19 showing LVEF 45%), hyperthyroid, and HCV presents from home c/o acute on chronic intermittent periumbilical dull abdominal pain with radiation to R flank and 4x NBNB emesis since gradual onset 1000 yesterday , similar sx xmonths usually when getting dialysis or when needs dialysis. Missed dialysis today to come to ED. Endorses dry cough since September, intermittent. Tolerating PO water and medications. Tried peptobismol which made pain worse. LBM today, passing gas. Denies sick contacts, recent travel, recent antibiotic use, fever, chills, fatigue, headache, dizziness, numbness/tingling, weakness, vision changes, shortness of breath, chest pain, palpitations, leg swelling, blood in stool, diarrhea, constipation, dysuria, hematuria, confusion. PCP - Rebecca Villarreal Neph - Alessia Barreto ROS: Constitutional: Negative for chills, fever, fatigue, diaphoresis. HENT: Negative for sore throat, rhinorrhea, congestion. Eyes: Negative for visual disturbance. Respiratory: Positive for cough. Negative for shortness of breath, and wheezing. Cardiovascular: Negative for chest pain, palpitations, and leg swelling. Gastrointestinal: Positive for abdominal pain, nausea, vomiting. Negative for blood in stool, constipation, diarrhea. Genitourinary: Positive for R flank pain. Negative for dysuria, urgency, frequency, and hematuria. Musculoskeletal: Negative for myalgias, back pain, and neck pain. Skin: Negative for rash. Neurological: Negative for light-headedness, dizziness, vertigo, syncope, weakness, numbness and headaches. Psychiatric/Behavioral: Negative for behavioral problems and confusion. PE: Gen: Alert, NAD, comfortable-appearing, obese HEENT: PERRL, EOMI, MMM, NCAT. No conjunctival pallor. Sclera are non-icteric. CV: Regular rate and rhythm. No murmurs, rubs, or gallops. PULM: No resp distress. CTAB, no wheezes, rales, or rhonchi. ABD: protuberant, soft, slight periumbilical TTP and minimal R CVA tenderness, ND, no rebound tenderness or guarding. BACK: No TTP of c/t/l-spine. No step-offs or deformities. MSK: No bony deformities. 2+ pulses in all extremities. NEURO: AAOx3. PERRL. No gross CN deficits. Strength and sensation grossly intact throughout. EXTREMITIES: No cyanosis. No clubbing. No edema. No calf tenderness. PSYCH: Normal mood and thought pattern. SKIN: Warm and dry. Normal capillary refill. No rashes. No jaundice. MDM: 69yo F hx ESRD on dialysis (T/R/S, last , skipped today), DM, HTN, afib on eliquis (last echo 07/19 showing LVEF 45%), hyperthyroid, and HCV presents from home with acute on chronic intermittent periumbilical dull abdominal pain with radiation to R flank and 4x NBNB emesis since gradual onset 1000 yesterday , similar sx xmonths usually when getting dialysis or when needs dialysis. Missed dialysis today to come to ED. Hemodynamically stable, afebrile, slight periumbilical TTP and minimal R CVA tenderness. Ddx: fluid overload 2/2 missed dialysis, GI pathology (AAA, diverticulitis, pancreatitis, appendicitis, cholelithiasis/cystitis), renal pathology (renal stone, UTI/pyelo), metabolic derangement, anemia, infection, low concern ACS/[place] -Labs: CBC,CMP,Mg,Phos,Coags,Lipase,Cardiac profile,UA/UC -CTAP -CXR -EKG -Zofran -Consult Nephrology [place] -Dispo: likely admit pending w/u and consults 03/14/19 12:55 EKG reviewed: sinus rhythm w/1st degree AV block, 83bpm, ND interval 244ms, QTc 470ms, no e/o acute ischemia Labs reviewed: notable for WBC 11.1, trop 0.13, BUN/Cr 32.9/6.3, K 4.5, ALP 230 , CK 297 CTAP reviewed: moderate-sized hiatal hernia, R hydronephrosis and hydroureter ( point of obstruction not defined, consider urology consult and/or additional imaging), appendix not identified CXR reviewed: minimal atelectatic change L base, apical lordotic projection, elevated R hemidiaphragm Attending Dr Hamilton spoke with Dr Villarreal - admitted pt. Called Alessia Barreto. Spoke with Dr Winkler - will see pt. Discharge - Discharge Information Problems reviewed: Yes Clinical Impression/Diagnosis: Missed dialysis, ESRD (end stage renal disease) Abdominal pain Qualifiers: Abdominal location: generalized Qualified Code(s): R10.84 - Generalized abdominal pain Condition: Improved Disposition: VNS/HOME HEALTH CARE - Admission Yes - Follow up/Referral - Patient Discharge Instructions - Post Discharge Activity
[2019-03-14] MEDS ORDERED: ONDANSETRON 4 MG/2 ML VIAL IVPUSH ONE (09:45)
[2019-03-14] MEDS ORDERED: FAMOTIDINE 20 MG/50 ML IVPB 20 MG/50 ML MG IVPB ONE ×2 (09:45→10:51)
[2019-03-14] MEDS ORDERED: ONDANSETRON 4 MG/2 ML VIAL ONE (09:52)
[2019-03-14 11:51] LABS: BASO % 1.6 % (0-2.0); EOS % 0.4 % (0-4.5); HEMATOCRIT 34.8 % (32.4-45.2); HEMOGLOBIN 10.9 GM/dL (10.7-15.3); LYMPH % 10.9 % (8-40); MCH 26.3 pg (25.7-33.7); MCHC 31.3 g/dl (32.0-36.0); MEAN CELL VOLUME 84.1 fl (80-96); MEAN PLT VOLUME 10.1 fl (7.5-11.1); MONO % 6.7 % (3.8-10.2); NEUT % 80.4 % (42.8-82.8); PLATELET COUNT 203 K/MM3 (134-434); RBC 4.13 M/mm3 (3.60-5.2); RDW 17.3 % (11.6-15.6); WHITE BLOOD COUNT 11.1 K/mm3 (4.0-10.0)
--- NOTE | 2019-03-14 11:56 | PDOC ---
Documentation entered by Nehemias Valdivia SCRIBE, acting as scribe for Ninfa Hamilton MD. Ninfa Hamilton MD: This documentation has been prepared by the Shea castro Xhesika, SCRIBE, under my direction and personally reviewed by me in its entirety. I confirm that the documentation accurately reflects all work, treatment, procedures, and medical decision making performed by me. Attending Attestation - Resident Resident Name: Jodi Petersen - HPI HPI: 03/14/19 11:06 The patient is a 69 year old female, with a significant PMH of ESRD on dialysis (//), diabetes mellitus, hypertension, atrial fibrillation on Eliquis, hyperthyroidism, HCV, who presents to the emergency department for LUQ abdominal pain. The patient reports nbnb emesis at home. Pt states she could not go to dialysis today because her pain prompted her arrival to the ED. The patient denies chest pain, shortness of breath, headache and dizziness. Denies fever, chills, cough, nausea, diarrhea and constipation. Denies dysuria, frequency, urgency and hematuria. Allergies: mushroom nut unspecified, povidone iodine, soap, (More) PCP: Dr Villarreal. - Physicial Exam PE: 03/14/19 11:07 GENERAL: Awake, alert, and fully oriented, in no acute distress. +obese. LUNGS: Breath sounds equal, clear to auscultation bilaterally. No wheezes, and no crackles HEART: Regular rate and rhythm, normal S1 and S2, no murmurs, rubs or gallops ABDOMEN: Soft, nontender, normoactive bowel sounds. No guarding, no rebound. No masses EXTREMITIES: Normal range of motion, no edema. No clubbing or cyanosis. No cords, erythema, or tenderness NEUROLOGICAL: Cranial nerves II through XII grossly intact. Normal speech, normal gait SKIN: Warm, Dry, normal turgor, no rashes or lesions noted. - Medical Decision Making 03/14/19 11:51 Pt presents to the ED complaining of periumbilical pain and vomiting. Abdomen is non tender, but given age and history, I am concerned for intraabdominal pathology, including aaa, pancreatitis, diverticulitis. Will check labs and CT abdomen pelvis. 03/14/19 11:51
[2019-03-14 12:09] LABS: ALBUMIN 3.2 g/dl (3.4-5.0); BILIRUBIN,TOTAL 0.5 mg/dL (0.2-1); BLOOD UREA NITROGEN 32.9 mg/dL (7-18); CALCIUM 8.8 mg/dL (8.5-10.1); CREATININE 6.3 mg/dL (0.55-1.3); MAGNESIUM 2.6 mg/dL (1.8-2.4); PHOSPHOROUS 3.4 mg/dL (2.5-4.9); POTASSIUM 4.5 mmol/L (3.5-5.1); TOT PROT 7.5 g/dl (6.4-8.2)
[2019-03-14 12:16] LABS: INR 1.84 (0.83-1.09); PROTHROMBIN TIME (PATIENT) 21.8 SEC (9.7-13.0)
[2019-03-14 12:19] LABS: ACTIVATED PTT 47.1 SECONDS (25.2-36.5)
--- NOTE | 2019-03-14 12:54 | HP ---
Admitting History and Physical - Primary Care Physician PCP: Rebecca Villarreal S - Admission Chief Complaint: abdominal pain, N/V History of Present Illness: The patient is a 69 year old female, with a significant PMH of ESRD on dialysis (), diabetes mellitus, hypertension, atrial fibrillation on Eliquis, hyperthyroidism, HCV, who presents to the emergency department for LUQ abdominal pain. The patient reports nb emesis at home. Pt states she could not go to dialysis today because her pain prompted her arrival to the ED. pt said she took peptobismol at home then noticed it was and her abd pain got worse so she came to ER; accomp by grand daughter in ER. Had BM NL today. Has h/o Csection, hysterectomy and appendectomy The patient denies chest pain, shortness of breath, headache and dizziness. Denies fever, chills, cough, nausea, diarrhea and constipation. Denies dysuria, frequency, urgency and hematuria. 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) Cardiovascular: Yes: CHF, HTN, Hyperlipdemia Pulmonary: Yes: Asthma, Pneumonia, Other (ILD) Gastrointestinal: Yes: Constipation, GERD Hepatobiliary: Yes: Hepatitis C Renal/: Yes: Renal Inusuff Heme/Onc: Yes: Anemia Musculoskeletal: Yes: Osteoarthritis Endocrine: Yes: Diabetes Mellitus, Hyperthyroidism, Other - Past Surgical History Past Surgical History: Yes: , Hysterectomy, Appendectomy, Colonoscopy - Smoking History Smoking history: Unknown if ever smoked Have you smoked in the past 12 months: No Aproximately how many cigarettes per day: 0 - Alcohol/Substance Use Hx Alcohol Use: No History of Substance Use: reports: None - Social History ADL: Independent History of Recent Travel: No Home Medications - Allergies Allergies/Adverse Reactions: Allergies Allergy/AdvReac Type Severity Reaction Status Date / Time mushroom Allergy Severe Rash Verified 03/14/19 08:53 nut - unspecified [nut] Allergy Severe "HIVES,THROAT Verified 03/14/19 08:53 CLOSES" povidone-iodine Allergy Severe Rash Verified 03/14/19 08:53 [From Betadine] soap [From Betadine] Allergy Severe Rash Verified 03/14/19 08:53 Fish Containing Products AdvReac Severe Swelling Verified 03/14/19 08:53 - Home Medications Home Medications: Ambulatory Orders Diltiazem [Cardizem -] 60 mg PO BID 07/10/16 Escitalopram Oxalate [Lexapro -] 5 mg PO DAILY 07/10/16 Apixaban [Eliquis] 5 mg PO BID 11/18/17 Methimazole [Tapazole] 5 mg PO BID 11/18/17 Atorvastatin Ca [Lipitor] 40 mg PO DAILY 03/14/19 Furosemide 80 mg PO DAILY 03/14/19 Lisinopril 5 mg PO BID 03/14/19 Metoprolol Tartrate 100 mg PO BID 03/14/19 Family Medical History Family History: Unremarkable Review of Systems - Review of Systems Constitutional: denies: Chills, Fever Eyes: denies: Blind Spots, Double Vision HENT: denies: Difficult Swallowing, Ear Pain, Epistaxis Neck: denies: Decreased ROM, Stiffness, Tenderness Cardiovascular: denies: Chest Pain, Shortness of Breath Respiratory: denies: Cough, SOB Gastrointestinal: reports: Abdominal Pain, Vomiting. denies: Constipation, Diarrhea Genitourinary: denies: Discharge, Dysuria, Flank Pain Musculoskeletal: denies: Back Pain Neurological: denies: Change in LOC, Headache, Seizure, Syncope Hematology/Lymphatic: denies: Easily Bruised, Excessive Bleeding Psychiatric: denies: Anxiety, Depression Physical Examination Vital Signs: Vital Signs Temperature 98.8 F 03/14/19 08:36 Pulse Rate 72 03/14/19 08:36 Respiratory Rate 16 03/14/19 08:36 Blood Pressure 135/74 03/14/19 08:36 O2 Sat by Pulse Oximetry (%) 100 03/14/19 08:36 Constitutional: Yes: No Distress, Calm Eyes: Yes: Conjunctiva Clear HENT: Yes: Atraumatic Neck: Yes: Supple Cardiovascular: Yes: Regular Rate and Rhythm Respiratory: Yes: CTA Bilaterally Gastrointestinal: Yes: Soft. No: Tenderness Renal/: No: CVA Tenderness - Left, CVA Tenderness - Right, Hematuria Musculoskeletal: No: Joint Stiffness, Joint Swelling Extremities: No: Cold, Cool, Cyanosis Edema: No Integumentary: No: Rash, Venous Stasis Changes Neurological: Yes: Alert ...Motor Strength: WNL Psychiatric: Yes: Alert. No: Agitated, Suicidal Ideation Labs: CBC, BMP 03/14/19 09:49 03/14/19 09:49 Imaging - Results Chest X-ray: Report Reviewed Cat Scan: Report Reviewed Other: Report Reviewed Assessment/Plan The patient is a 69 year old female, with a significant PMH of ESRD on dialysis (//), diabetes mellitus, hypertension, atrial fibrillation on Eliquis, hyperthyroidism, HCV, who presents to the emergency department for LUQ abdominal pain, N/V; positive trops in ER admit to telemetry; cardio eval abd pain, CT Hydronephrosis eval; GI eval HD per renal falls dercubs pfx d/w pt and staff
--- NOTE | 2019-03-14 15:03 | EKG ---
Test Reason : Blood Pressure : / mmHG Vent. Rate : 083 BPM Atrial Rate : 083 BPM P-R Int : 244 ms QRS Dur : 092 ms QT Int : 400 ms P-R-T Axes : 080 -28 094 degrees QTc Int : 470 ms SINUS RHYTHM WITH 1ST DEGREE A-V BLOCK CANNOT RULE OUT ANTERIOR INFARCT (CITED ON OR BEFORE 13-MAR-2018) ABNORMAL ECG WHEN COMPARED WITH ECG OF 13-MAR-2018 08:12, VENT. RATE HAS INCREASED BY 31 BPM SERIAL CHANGES OF ANTERIOR INFARCT PRESENT Confirmed by EVIE DELONG, ANIA ([id number]) on 03/14/2019 3:03:13 PM Referred By: Confirmed By:ANIA CASE MD
--- NOTE | 2019-03-14 20:08 | CONSULT ---
Consult Consult Specialty:: Nephrology Reason for Consultation:: ESRD - History of Present Illness Chief Complaint: abd pain History of Present Illness: Pt is a 69 year old female with pmhx of esrd, dm, ht, a-fib, and hcv who presents with abd pain. SHe missed her HD today. SHe did have vomiting at home yesterday. She denies shortness of breath. She denies chest pain. SHe denies fevers or chills. She does not make much urine. She denies sick contacts. 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: CVA (transient speech loss and left hemiparesis in 2013) Cardio/Vascular: Yes: CHF, HTN, Hyperlipdemia Pulmonary: Yes: Asthma, Pneumonia, Other (ILD) Gastrointestinal: Yes: Constipation, GERD Hepatobiliary: Yes: Hepatitis C Renal/: Yes: Renal Inusuff Musculoskeletal: Yes: Osteoarthritis Endocrine: Yes: Diabetes Mellitus, Hyperthyroidism, Other - Past Surgical History Past Surgical History: Yes: , Hysterectomy, Appendectomy, Colonoscopy - Alcohol/Substance Use Hx Alcohol Use: No History of Substance Use: reports: None - Smoking History Smoking history: Unknown if ever smoked Have you smoked in the past 12 months: No Aproximately how many cigarettes per day: 0 - Social History Usual Living Arrangement: Alone () ADL: Independent History of Recent Travel: No Home Medications - Allergies Allergies/Adverse Reactions: Allergies Allergy/AdvReac Type Severity Reaction Status Date / Time mushroom Allergy Severe Rash Verified 03/14/19 08:53 nut - unspecified [nut] Allergy Severe "HIVES,THROAT Verified 03/14/19 08:53 CLOSES" povidone-iodine Allergy Severe Rash Verified 03/14/19 08:53 [From Betadine] soap [From Betadine] Allergy Severe Rash Verified 03/14/19 08:53 Fish Containing Products AdvReac Severe Swelling Verified 03/14/19 08:53 - Home Medications Home Medications: Ambulatory Orders Diltiazem [Cardizem -] 60 mg PO BID 07/10/16 Escitalopram Oxalate [Lexapro -] 5 mg PO DAILY 07/10/16 Apixaban [Eliquis] 5 mg PO BID 11/18/17 Methimazole [Tapazole] 5 mg PO BID 11/18/17 Atorvastatin Ca [Lipitor] 40 mg PO DAILY 03/14/19 Furosemide 80 mg PO DAILY 03/14/19 Lisinopril 5 mg PO BID 03/14/19 Metoprolol Tartrate 100 mg PO BID 03/14/19 Family Medical History Family History: Denies Review of Systems - Review of Systems Constitutional: reports: Malaise. denies: Chills Eyes: reports: No Symptoms HENT: reports: No Symptoms Neck: reports: No Symptoms Cardiovascular: reports: No Symptoms Respiratory: reports: No Symptoms Gastrointestinal: reports: Abdominal Pain, Nausea Genitourinary: reports: No Symptoms Musculoskeletal: reports: No Symptoms Neurological: reports: No Symptoms Endocrine: reports: No Symptoms Hematology/Lymphatic: reports: No Symptoms Physical Exam Vital Signs: Vital Signs Temperature 99 F 03/14/19 17:38 Pulse Rate 78 03/14/19 17:38 Respiratory Rate 18 03/14/19 17:38 Blood Pressure 151/73 03/14/19 17:38 O2 Sat by Pulse Oximetry (%) 100 03/14/19 17:38 Constitutional: Yes: Calm Eyes: Yes: Conjunctiva Clear HENT: Yes: Atraumatic Neck: Yes: Supple Cardiovascular: Yes: S2 Respiratory: Yes: CTA Bilaterally Gastrointestinal: Yes: Soft, Abdomen, Obese Renal/: Yes: WNL Musculoskeletal: Yes: WNL Edema: No Neurological: Yes: Oriented Psychiatric: Yes: Oriented Labs: CBC, BMP 03/14/19 09:49 03/14/19 09:49 Imaging - Results Cat Scan: Report Reviewed (right hydro) Problem List - Problems (1) Abdominal pain Code(s): R10.9 - UNSPECIFIED ABDOMINAL PAIN Qualifiers: Abdominal location: generalized Qualified Code(s): R10.84 - Generalized abdominal pain (2) ESRD (end stage renal disease) Code(s): N18.6 - END STAGE RENAL DISEASE Assessment/Plan Current Medications Generic Name Dose Route Start Last Admin Trade Name Freq PRN Reason Stop Dose Admin Apixaban 5 mg 03/14/19 22:00 Eliquis - PO BID EMELINA Atorvastatin Calcium 40 mg 03/14/19 22:00 Lipitor - PO HS EMELINA Diltiazem HCl 60 mg 03/14/19 22:00 Cardizem - PO BID EMELINA Diltiazem HCl 60 mg 03/14/19 22:00 Cardizem - PO 03/15/19 10:10 BID [facility] Escitalopram Oxalate 5 mg 03/15/19 10:00 Lexapro - PO DAILY [facility] Furosemide 80 mg 03/15/19 10:00 Lasix - PO DAILY [facility] Lisinopril 5 mg 03/14/19 22:00 Prinivil PO BID [facility] Methimazole 5 mg 03/14/19 22:00 Tapazole - PO BID [facility] Metoprolol Tartrate 100 mg 03/14/19 22:00 Lopressor - PO BID [facility] Impression 1. esrd 2. abd pain 3. right hydro 4. dm 5. htn 6. hcv 7. a-fib Plan - d/c lasix as she says she does not urinate much - urology eval for hydro - unable to dialyze today secondary to staffing, will dialyze tomorrow - renal diet
[2019-03-14] MEDS ORDERED: SODIUM CHLORIDE 250 ML IV PRN (20:09)
[2019-03-14] MEDS: APIXABAN 5 MG TABLET PO SCH (21:27)
[2019-03-14] MEDS: dilTIAZem HCL 60 MG TABLET (FP) PO SCH (21:27)
[2019-03-14] MEDS: ATORVASTATIN CA 40 MG TABLET (FP) PO SCH (21:27)
[2019-03-14] MEDS: LISINOPRIL 5 MG TABLET (FP) PO SCH (21:27)
[2019-03-14] MEDS: METOPROLOL TARTRATE 50 MG TABLET (FP) PO SCH (21:27)
[2019-03-14] MEDS: METHIMAZOLE 5 MG TABLET (FP) PO SCH (21:27)
[2019-03-15 06:40] LABS: BASO % 0.7 % (0-2.0); EOS % 2.7 % (0-4.5); HEMATOCRIT 32.8 % (32.4-45.2); HEMOGLOBIN 10.5 GM/dL (10.7-15.3); MCH 26.3 pg (25.7-33.7); MCHC 32.1 g/dl (32.0-36.0); MEAN CELL VOLUME 81.9 fl (80-96); MEAN PLT VOLUME 9.4 fl (7.5-11.1); MONO % 11.5 % (3.8-10.2); NEUT % 66.1 % (42.8-82.8); PLATELET COUNT 227 K/MM3 (134-434); RDW 16.9 % (11.6-15.6); WHITE BLOOD COUNT 11.7 K/mm3 (4.0-10.0)
[2019-03-15 06:49] LABS: ALBUMIN 3.1 g/dl (3.4-5.0); BILIRUBIN,TOTAL 0.6 mg/dL (0.2-1); BLOOD UREA NITROGEN 40.8 mg/dL (7-18); CALCIUM 8.6 mg/dL (8.5-10.1); POTASSIUM 4.8 mmol/L (3.5-5.1); TOT PROT 7.2 g/dl (6.4-8.2)
[2019-03-15 07:00] LABS: CREATININE 7.4 mg/dL (0.55-1.3)
--- NOTE | 2019-03-15 07:20 | PN ---
Progress Note, Physician Chief Complaint: no abd pain today no N/V but reports cough when she eats;p WBC slightly higher CXR ? mass / inf; UCx not done yet - Current Medication List Current Medications: Active Medications Apixaban (Eliquis -) 5 mg PO BID [facility] Last Admin: 03/14/19 21:27 Dose: 5 mg Atorvastatin Calcium (Lipitor -) 40 mg PO HS [facility] Last Admin: 03/14/19 21:27 Dose: 40 mg Diltiazem HCl (Cardizem -) 60 mg PO BID [facility] Diltiazem HCl (Cardizem -) 60 mg PO BID [facility] Stop: 03/15/19 10:10 Last Admin: 03/14/19 21:27 Dose: 60 mg Escitalopram Oxalate (Lexapro -) 5 mg PO DAILY [facility] Sodium Chloride (Normal Saline -) 250 mls @ 3,000 mls/hr IV PRN PRN PRN Reason: Hypotension during Dialysis Stop: 03/15/19 20:09 Lisinopril (Prinivil) 5 mg PO BID [facility] Last Admin: 03/14/19 21:27 Dose: 5 mg Methimazole (Tapazole -) 5 mg PO BID [facility] Last Admin: 03/14/19 21:27 Dose: 5 mg Metoprolol Tartrate (Lopressor -) 100 mg PO BID [facility] Last Admin: 03/14/19 21:27 Dose: 100 mg - Objective Vital Signs: Vital Signs Temperature 99.3 F 03/15/19 06:00 Pulse Rate 77 03/15/19 06:00 Respiratory Rate 20 03/15/19 06:00 Blood Pressure 127/68 03/15/19 06:00 O2 Sat by Pulse Oximetry (%) 95 03/14/19 21:00 Constitutional: Yes: No Distress, Calm Eyes: Yes: Conjunctiva Clear HENT: Yes: Atraumatic Neck: Yes: Supple Cardiovascular: Yes: Regular Rate and Rhythm Respiratory: Yes: CTA Bilaterally Gastrointestinal: Yes: Soft. No: Tenderness Genitourinary: No: Hematuria Musculoskeletal: No: Joint Stiffness, Joint Swelling Extremities: No: Cold, Cool Edema: No Integumentary: No: Rash, Venous Stasis Changes Neurological: Yes: Alert ...Motor Strength: WNL Psychiatric: Yes: Alert. No: Agitated Labs: CBC, BMP 03/15/19 05:30 03/15/19 05:30 INR, PTT INR 1.84 (0.83-1.09) H 03/14/19 09:49 - ....Imaging Other: Report Reviewed Assessment/Plan The patient is a 69 year old female, with a significant PMH of ESRD on dialysis (//), diabetes mellitus, hypertension, atrial fibrillation on Eliquis, hyperthyroidism, HCV, who presents to the emergency department for LUQ abdominal pain, N/V; positive troponins monitor in telemetry; cardio eval cough abNL CXR chest CT and swallowing eval; pulm eval; iv ceftriaxone UA UCx ordered abd pain, CT Hydronephrosis eval; GI eval HD per renal falls dercubs pfx d/w pt and staff
[2019-03-15] MEDS: METOPROLOL TARTRATE 50 MG TABLET (FP) PO SCH ×2 (09:54→21:18)
[2019-03-15] MEDS: LISINOPRIL 5 MG TABLET (FP) PO SCH ×2 (09:54→21:18)
[2019-03-15] MEDS: ESCITALOPRAM OXALATE 10 MG TABLET PO SCH (09:54)
[2019-03-15] MEDS: APIXABAN 5 MG TABLET PO SCH ×2 (09:54→21:18)
[2019-03-15] MEDS ORDERED: PT OWN MED DRAWER 7, Y5N ONE ×2 (09:55→21:44)
[2019-03-15] MEDS: dilTIAZem HCL 60 MG TABLET (FP) PO SCH ×2 (09:56→21:20)
[2019-03-15] MEDS: METHIMAZOLE 5 MG TABLET (FP) PO SCH ×2 (09:57→22:50)
[2019-03-15] MEDS ORDERED: FUROSEMIDE 40 MG TABLET (FP) PO SCH (10:00)
--- NOTE | 2019-03-15 11:46 | CON.CARD ---
Cardiology Consult (text) - Consultation Consultation Note: Consultation Note: Chief Complaint: abd pain History of Present Illness: 69 yo F here with lower abd pain. No chest pain, palps, dizziness, dyspnea. Sees Dr Arriaza for cardio. CT abd/pelvis showed hydronephrosis, trops mildly elevated. 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: CVA (transient speech loss and left hemiparesis in 2013) Cardio/Vascular: Yes: CHF (end diastolic), HTN, Hyperlipdemia Pulmonary: Yes: Asthma, Pneumonia, Other (ILD) Gastrointestinal: Yes: Constipation, GERD Hepatobiliary: Yes: Hepatitis C Renal/: Yes: Renal Inusuff Musculoskeletal: Yes: Osteoarthritis Endocrine: Yes: Diabetes Mellitus (diabetic retinopathy ( treated ) and neuropathy), Hyperthyroidism (Graves Disease with thyroid nodule), Other ( THYROID DISEASE) - Past Surgical History Past Surgical History: Yes: , Hysterectomy, Appendectomy, Colonoscopy - Alcohol/Substance Use Hx Alcohol Use: No History of Substance Use: reports: None - Smoking History Smoking history: Unknown if ever smoked Have you smoked in the past 12 months: No Aproximately how many cigarettes per day: 0 - Social History Usual Living Arrangement: Alone ADL: Independent History of Recent Travel: No Home Medications Home Medications Medication Instructions Recorded Diltiazem [Cardizem -] 60 mg PO BID 07/10/16 Escitalopram Oxalate [Lexapro -] 5 mg PO DAILY 07/10/16 Apixaban [Eliquis] 5 mg PO BID 11/18/17 Methimazole [Tapazole] 5 mg PO BID 11/18/17 Atorvastatin Ca [Lipitor] 40 mg PO DAILY 03/14/19 Furosemide 80 mg PO DAILY 03/14/19 Lisinopril 5 mg PO BID 03/14/19 Metoprolol Tartrate 100 mg PO BID 03/14/19 Allergies Allergy/AdvReac Type Severity Reaction Status Date / Time mushroom Allergy Severe Rash Verified 03/14/19 08:53 nut - unspecified [nut] Allergy Severe "HIVES,THROAT Verified 03/14/19 08:53 CLOSES" povidone-iodine Allergy Severe Rash Verified 03/14/19 08:53 [From Betadine] soap [From Betadine] Allergy Severe Rash Verified 03/14/19 08:53 Fish Containing Products AdvReac Severe Swelling Verified 03/14/19 08:53 Family Disease History - Family Disease History Family Disease History: Diabetes: Mother (alive 91), Brother Review of Systems - Review of Systems Constitutional: reports: Chills. denies: Fever Eyes: denies: Eye Pain HENT: denies: Nasal Congestion Neck: denies: Stiffness Cardiovascular: denies: Palpitations Respiratory: denies: Orthopnea, PND Gastrointestinal: denies: Diarrhea, Rectal Bleeding Genitourinary: denies: Burning, Hematuria Musculoskeletal: denies: Muscle Pain Integumentary: denies: Rash Neurological: denies: Numbness, Seizure, Syncope Endocrine: denies: Excessive Sweating Hematology/Lymphatic: denies: Excessive Bleeding Vital Signs Period Temp Pulse Resp BP Sys/Chavarria Pulse Ox Last 24 Hr 98.2 F-99.5 F 68-84 18-20 125-151/66-79 95-100 Constitutional: Yes: Well Nourished, No Distress Eyes: No: Sclera Icterus HENT: No: Nasal Congestion Respiratory: Yes: CTA Bilaterally. No: Accessory Muscle Use, Rales, Wheezes Gastrointestinal: Yes: Normal Bowel Sounds. No: Distention, Hepatomegaly, Palpable Mass, Tenderness Cardiovascular: Yes: Regular Rate and Rhythm JVD: No Carotid Bruit: No PMI: Non-Displaced Heart Sounds: Yes: S1, S2. No: Gallop Murmur: No: Systolic Murmur, Diastolic Murmur Extremities: No: Cool, Cyanosis Edema: No Integumentary: No: Jaundice Neurological: Yes: Alert, Oriented (x3) Psychiatric: No: Agitated Laboratory Last Values WBC 11.7 K/mm3 (4.0-10.0) H 03/15/19 05:30 RBC 4.00 M/mm3 (3.60-5.2) 03/15/19 05:30 Hgb 10.5 GM/dL (10.7-15.3) L 03/15/19 05:30 Hct 32.8 % (32.4-45.2) 03/15/19 05:30 MCV 81.9 fl (80-96) 03/15/19 05:30 MCH 26.3 pg (25.7-33.7) 03/15/19 05:30 MCHC 32.1 g/dl (32.0-36.0) 03/15/19 05:30 RDW 16.9 % (11.6-15.6) H 03/15/19 05:30 Plt Count 227 K/MM3 (134-434) 03/15/19 05:30 MPV 9.4 fl (7.5-11.1) 03/15/19 05:30 Absolute Neuts (auto) 7.8 K/mm3 (1.5-8.0) 03/15/19 05:30 Neutrophils % 66.1 % (42.8-82.8) 03/15/19 05:30 Lymphocytes % 19.0 % (8-40) D 03/15/19 05:30 Monocytes % 11.5 % (3.8-10.2) H 03/15/19 05:30 Eosinophils % 2.7 % (0-4.5) D 03/15/19 05:30 Basophils % 0.7 % (0-2.0) 03/15/19 05:30 Nucleated RBC % 0 % (0-0) 03/15/19 05:30 PT with INR 21.80 SEC (9.7-13.0) H 03/14/19 09:49 INR 1.84 (0.83-1.09) H 03/14/19 09:49 PTT (Actin FS) 47.1 SECONDS (25.2-36.5) H 03/14/19 09:49 Sodium 133 mmol/L (136-145) L 03/15/19 05:30 Potassium 4.8 mmol/L (3.5-5.1) 03/15/19 05:30 Chloride 98 mmol/L (98-107) 03/15/19 05:30 Carbon Dioxide 27 mmol/L (21-32) 03/15/19 05:30 Anion Gap 8 MMOL/L (8-16) 03/15/19 05:30 BUN 40.8 mg/dL (7-18) H 03/15/19 05:30 Creatinine 7.4 mg/dL (0.55-1.3) H* 03/15/19 05:30 Est GFR (CKD-EPI)AfAm 5.92 03/15/19 05:30 Est GFR (CKD-EPI)NonAf 5.11 03/15/19 05:30 Random Glucose 86 mg/dL (74-106) 03/15/19 05:30 Calcium 8.6 mg/dL (8.5-10.1) 03/15/19 05:30 Phosphorus 3.4 mg/dL (2.5-4.9) 03/14/19 09:49 Magnesium 2.6 mg/dL (1.8-2.4) H 03/14/19 09:49 Total Bilirubin 0.6 mg/dL (0.2-1) 03/15/19 05:30 AST 21 U/L (15-37) 03/15/19 05:30 ALT 14 U/L (13-61) 03/15/19 05:30 Alkaline Phosphatase 206 U/L (45-117) H 03/15/19 05:30 Creatine Kinase 161 U/L (26-192) 03/15/19 05:30 Creatine Kinase Index 1.4 % (0.0-5.0) 03/15/19 05:30 CK-MB (CK-2) 2.4 ng/mL (0.5-3.6) 03/15/19 05:30 Troponin I 0.22 ng/ml (0.00-0.05) H 03/15/19 05:30 Total Protein 7.2 g/dl (6.4-8.2) 03/15/19 05:30 Albumin 3.1 g/dl (3.4-5.0) L 03/15/19 05:30 Lipase 137 U/L (73-393) 03/14/19 09:49 ECG: sr, 1st avb, lat twis, no st changes, no sig change prior cxr: no sig chf MPI 07/19 (marjan): no isch STs, pt in afib. mid-AW ischemia, distal IW ischemia. fixed apical defect. EF 30%, no TID Echo 07/19: moderate LVE, mildly decr'd LVEF (45%), GLOBAL. nl RV size, mild RV hypo. mild LAE. mod MR. mild pHTN (RVSP 42). nl LAP. tele: sinus, PVCs a/p: abd pain - CT abd/pelvis with R hydronephrosis and hydroureter - GI and urology consult pending elevated trop - trop indeterminate range in setting of ESRD, flat trend, EKG no ischemic changes - no signs ACS, likely demand - check echo CAD: -2018 stress test with ischemia in RCA and also LAD distributions. -she has been asymptomatic (walks with walker on street at baseline) -cont home med regimen: AC (no ASA), statin, bb chronic syst/diast CHF (mixed), moderate MR, mild pHTN: -pt with known mild to moderate vs moderate decrease in LVEF. ? isch CMP ( inferoposterior WMAs worse on prior hosp echo review here), ? nonischemic ( uncontrolled DM long time, global appearance of hypokinesis on recent imaging) -has been clinically euvolemic for long time, with volume status stable with HD mgmt -continues to appear euvolemic here, outpt wt trend (pre and post dialysis wts) stable. -no audible MR murmur, echo images not concerning for severe MR previously ( serial studies) parox AF: -pt incidentally noted to be in afib during stress test 2018 -no recurrence since -on good AVN louis regimen for PSVT prophylaxis--continue same -on Eliquis PSVT: -frequent episodes of very rapid SVT during prior hospital stays, whenever meds are interrupted -tolerating home metoprolol and diltiazem regimen long time, with good arrhythmia control HTN: -stable overall -same meds ESRD on HD: -dialysis per renal pulm fibrosis: -hospitalized here previously with unexplained interstitial lung dz picture, no specific dx made on bronch--treated empirically with steroids with good resolution; -per pmd h/o posterior circulation CVA: -on AC now (Aggrenox stopped), statin hyperthyroidism: -on methimazole, sees dr chiu for endo
[2019-03-15] MEDS ORDERED: dilTIAZem HCL 60 MG TABLET (FP) PO ONE (14:30)
--- NOTE | 2019-03-15 15:05 | PN ---
Progress Note, Physician History of Present Illness: Pt seen and examined at bedside. She is awake and alert. She tolerated HD. She was tachycardiac and I gave a saline bolus. She denies shortness of breath. - Current Medication List Current Medications: Active Medications Apixaban (Eliquis -) 5 mg PO BID [facility] Last Admin: 03/15/19 09:54 Dose: 5 mg Atorvastatin Calcium (Lipitor -) 40 mg PO HS [facility] Last Admin: 03/14/19 21:27 Dose: 40 mg Diltiazem HCl (Cardizem -) 60 mg PO BID [facility] Escitalopram Oxalate (Lexapro -) 5 mg PO DAILY [facility] Last Admin: 03/15/19 09:54 Dose: 5 mg Sodium Chloride (Normal Saline -) 250 mls @ 3,000 mls/hr IV PRN PRN PRN Reason: Hypotension during Dialysis Stop: 03/15/19 20:09 Ceftriaxone Sodium 1 gm/ (Dextrose) 50 mls @ 100 mls/hr IVPB DAILY [facility] Lisinopril (Prinivil) 5 mg PO BID [facility] Last Admin: 03/15/19 09:54 Dose: Not Given Methimazole (Tapazole -) 5 mg PO BID [facility] Last Admin: 03/15/19 09:57 Dose: 5 mg Metoprolol Tartrate (Lopressor -) 100 mg PO BID [facility] Last Admin: 03/15/19 09:54 Dose: Not Given - Objective Vital Signs: Vital Signs Temperature 99.1 F 03/15/19 10:15 Pulse Rate 120 H 03/15/19 13:28 Respiratory Rate 18 03/15/19 13:28 Blood Pressure 120/82 03/15/19 13:28 O2 Sat by Pulse Oximetry (%) 95 03/15/19 09:00 Constitutional: Yes: Calm Eyes: Yes: Conjunctiva Clear HENT: Yes: Atraumatic Cardiovascular: Yes: S1, S2 Respiratory: Yes: CTA Bilaterally Gastrointestinal: Yes: Soft Genitourinary: Yes: WNL Musculoskeletal: Yes: WNL Edema: No Neurological: Yes: Oriented Psychiatric: Yes: Oriented Labs: CBC, BMP 03/15/19 05:30 03/15/19 05:30 INR, PTT INR 1.84 (0.83-1.09) H 03/14/19 09:49 Problem List - Problems (1) Abdominal pain Code(s): R10.9 - UNSPECIFIED ABDOMINAL PAIN Qualifiers: Abdominal location: generalized Qualified Code(s): R10.84 - Generalized abdominal pain (2) ESRD (end stage renal disease) Code(s): N18.6 - END STAGE RENAL DISEASE Assessment/Plan Current Medications Generic Name Dose Route Start Last Admin Trade Name Freq PRN Reason Stop Dose Admin Apixaban 5 mg 03/14/19 22:00 03/15/19 09:54 Eliquis - PO 5 mg BID EMELINA Administration Atorvastatin Calcium 40 mg 03/14/19 22:00 03/14/19 21:27 Lipitor - PO 40 mg HS EMELINA Administration Diltiazem HCl 60 mg 03/14/19 22:00 Cardizem - PO BID EMELINA Escitalopram Oxalate 5 mg 03/15/19 10:00 03/15/19 09:54 Lexapro - PO 5 mg DAILY EMELINA Administration Sodium Chloride 250 mls @ 3,000 mls/hr 03/14/19 20:09 Normal Saline - IV 03/15/19 20:09 PRN PRN Hypotension during Dialysis Ceftriaxone Sodium 1 gm/ 50 mls @ 100 mls/hr 03/15/19 14:45 Dextrose IVPB DAILY EMELINA Lisinopril 5 mg 03/14/19 22:00 03/15/19 09:54 Prinivil PO Not Given BID EMELINA Methimazole 5 mg 03/14/19 22:00 03/15/19 09:57 Tapazole - PO 5 mg BID EMELINA Administration Metoprolol Tartrate 100 mg 03/14/19 22:00 03/15/19 09:54 Lopressor - PO Not Given BID [facility] Impression 1. esrd 2. abd pain 3. right hydro 4. dm 5. htn 6. hcv 7. a-fib Plan - saline bolus - bp and pulse now normal, pt awake and aler - next HD on Saturday - renal diet - urology eval for hydro
[2019-03-15] MEDS ORDERED: cefTRIAXone SODIUM 1 GM VIAL ONE (15:09)
[2019-03-15] MEDS ORDERED: DEXTROSE 5%-WATER - 50 ML IVPB ONE (15:09)
[2019-03-15] MEDS: CEFTRIAXONE 1 GM in DEXTROSE 5%-WATER - 50 ML IVPB SCH (15:14)
--- NOTE | 2019-03-15 17:05 | PN ---
Progress Note (short form) - Note Progress Note: GI CONSULT DICTATED - UROLOGY EVALUATION - HOLD OFF ON [id number] EVALUATION UNTIL UNDERLYING PROCESS IS FURTHER EVALUATED/ RESOLVES. SEE FULL CONSULT DICTATED
[2019-03-15] MEDS: ATORVASTATIN CA 40 MG TABLET (FP) PO SCH (21:17)
--- NOTE | 2019-03-15 21:17 | CONS ---
DATE OF CONSULTATION: DATE OF DICTATION: 03/15/2018 The patient is a 69-year-old female, past medical history of end-stage renal disease, on hemodialysis, diabetes, hypertension, atrial fibrillation, on Eliquis, hyperthyroidism, HCV, who presented to the emergency room with complaints of lower abdominal pain. She reports also associated nausea. She states she had a loose bowel movement while in the hospital, however, at home, did not have any diarrhea. She reports chills without fever. Apparently her last colonoscopy was done by Dr. Hassan when she was in the hospital, reports to be negative. She has not seen him as an outpatient. She has never had an upper endoscopy. PAST MEDICAL AND SURGICAL HISTORY: As listed in the HPI, with the addition of a CVA in 2012, as well as a section, hysterectomy, and appendectomy. SOCIAL HISTORY: Does not smoke, drink, or use drugs. FAMILY HISTORY: No history of GI or gynecological malignancy. ALLERGIES: MUSHROOM, NUT, IODINE, SOAP, and FISH-CONTAINING PRODUCTS. HOME MEDICATION: Cardizem, Lexapro, Eliquis, Tapazole, Lipitor, furosemide, lisinopril, and metoprolol. REVIEW OF SYSTEMS: As per the HPI. PHYSICAL EXAMINATION: Vital Signs: Temperature 98, pulse 110, blood pressure 122/79, respiratory rate 19, pulse oximetry 98% on room air. General: No acute distress. HEENT: Anicteric sclerae. Cardiovascular: S1, S2, regular rate and rhythm. Lungs: Bilaterally clear to auscultation. Abdomen: Soft and nontender. Extremities: Without edema. LABORATORY DATA: White blood cell count 11, hemoglobin 10 and hematocrit 32, MCV 81, platelet count 227. INR 1.8. Sodium 133, potassium 4.8, BUN 40, creatinine 7.4, glucose 86, total bilirubin 0.6, AST 21, ALT 14, alkaline phosphatase 206. Troponin 0.22. Hepatitis B and C serologies are pending. She had an abdomen and pelvis CT scan with contrast, which revealed moderate size hiatal hernia, right hydronephrosis, and hydroureter, point of obstruction not defined. Liver, spleen, adrenals, and pancreas are unremarkable. No gallstones. IMPRESSION: Abdominal pain, may be secondary to underlying urological process. RECOMMENDATIONS: Urology evaluation. Would start her on Pepcid for symptomatic relief, follow up cultures. Once she is evaluated by Urology and the underlying process is resolved, she would benefit from a diagnostic endoscopic evaluation. This patient will be followed by the GI service. DO DASIA BURGESS/[id number]
[2019-03-15] MEDS: guaiFENesin 200 MG/10 ML 10 ML UNIT-DOSE CUPS PO PRN (22:50)
[2019-03-16] MEDS: guaiFENesin 200 MG/10 ML 10 ML UNIT-DOSE CUPS PO PRN ×2 (06:45→22:14)
--- NOTE | 2019-03-16 06:55 | PN ---
Progress Note, Physician Chief Complaint: in bed NAD no abd pain no N/V but chronic cough; on IV ceftriaxone consults appreciated and d/w pt - Current Medication List Current Medications: Active Medications Apixaban (Eliquis -) 5 mg PO BID [facility] Last Admin: 03/15/19 21:18 Dose: 5 mg Atorvastatin Calcium (Lipitor -) 40 mg PO HS [facility] Last Admin: 03/15/19 21:17 Dose: 40 mg Diltiazem HCl (Cardizem -) 60 mg PO BID [facility] Last Admin: 03/15/19 21:20 Dose: 60 mg Escitalopram Oxalate (Lexapro -) 5 mg PO DAILY [facility] Last Admin: 03/15/19 09:54 Dose: 5 mg Guaifenesin (Robitussin -) 10 ml PO Q6H PRN PRN Reason: COUGH Last Admin: 03/16/19 06:45 Dose: 10 ml Ceftriaxone Sodium 1 gm/ (Dextrose) 50 mls @ 100 mls/hr IVPB DAILY [facility] Last Admin: 03/15/19 15:14 Dose: 100 mls/hr Lisinopril (Prinivil) 5 mg PO BID [facility] Last Admin: 03/15/19 21:18 Dose: 5 mg Methimazole (Tapazole -) 5 mg PO BID [facility] Last Admin: 03/15/19 22:50 Dose: 5 mg Metoprolol Tartrate (Lopressor -) 100 mg PO BID [facility] Last Admin: 03/15/19 21:18 Dose: 100 mg - Objective Vital Signs: Vital Signs Temperature 98.9 F 03/16/19 06:00 Pulse Rate 65 03/16/19 06:00 Respiratory Rate 16 03/16/19 06:00 Blood Pressure 128/62 03/16/19 06:00 O2 Sat by Pulse Oximetry (%) 95 03/15/19 21:00 Constitutional: Yes: No Distress, Calm Eyes: Yes: Conjunctiva Clear HENT: Yes: Atraumatic Neck: Yes: Supple Cardiovascular: Yes: Regular Rate and Rhythm Respiratory: Yes: CTA Bilaterally Gastrointestinal: Yes: Soft. No: Tenderness Genitourinary: No: Hematuria Musculoskeletal: No: Joint Stiffness, Joint Swelling Extremities: No: Cold, Cool Edema: No Integumentary: No: Rash, Venous Stasis Changes Neurological: Yes: Alert, Oriented ...Motor Strength: WNL Psychiatric: Yes: Alert, Oriented. No: Agitated, Suicidal Ideation Labs: CBC, BMP 03/15/19 05:30 03/15/19 05:30 INR, PTT INR 1.84 (0.83-1.09) H 03/14/19 09:49 - ....Imaging Other: Report Reviewed Assessment/Plan The patient is a 69 year old female, with a significant PMH of ESRD on dialysis (//), diabetes mellitus, hypertension, atrial fibrillation on Eliquis, hyperthyroidism, HCV, who presents to the emergency department for LUQ abdominal pain, N/V; positive troponins monitor in telemetry; cardio f/u cough - iv ceftriaxone, pulm eval; abd pain, CT Hydronephrosis and GI f/u HD per renal falls dercubs pfx d/w pt and staff
[2019-03-16] MEDS ORDERED: cefTRIAXone SODIUM 1 GM VIAL ONE (08:22)
[2019-03-16] MEDS ORDERED: DEXTROSE 5%-WATER - 50 ML IVPB ONE (08:22)
[2019-03-16] MEDS: ESCITALOPRAM OXALATE 10 MG TABLET PO SCH (09:22)
[2019-03-16] MEDS: APIXABAN 5 MG TABLET PO SCH ×2 (09:22→22:15)
[2019-03-16] MEDS: LISINOPRIL 5 MG TABLET (FP) PO SCH ×3 (09:22→22:15)
[2019-03-16] MEDS: METOPROLOL TARTRATE 50 MG TABLET (FP) PO SCH (09:22)
[2019-03-16] MEDS: dilTIAZem HCL 60 MG TABLET (FP) PO SCH (09:23)
[2019-03-16] MEDS: CEFTRIAXONE 1 GM in DEXTROSE 5%-WATER - 50 ML IVPB SCH (09:23)
[2019-03-16] MEDS: METHIMAZOLE 5 MG TABLET (FP) PO SCH ×2 (09:24→22:16)
--- NOTE | 2019-03-16 09:39 | PN ---
Progress Note, Physician Chief Complaint: abd pain History of Present Illness: abdominal pain stopped now. today she noted bright red blood in toilet with urination. + cough (white phlegm), gurgling/? wheezing in throat. no leg swelling no chest pain no active cigs - Current Medication List Current Medications: Active Medications Apixaban (Eliquis -) 5 mg PO BID [facility] Last Admin: 03/16/19 09:22 Dose: 5 mg Atorvastatin Calcium (Lipitor -) 40 mg PO HS [facility] Last Admin: 03/15/19 21:17 Dose: 40 mg Diltiazem HCl (Cardizem -) 60 mg PO BID [facility] Last Admin: 03/16/19 09:23 Dose: 60 mg Escitalopram Oxalate (Lexapro -) 5 mg PO DAILY [facility] Last Admin: 03/16/19 09:22 Dose: 5 mg Guaifenesin (Robitussin -) 10 ml PO Q6H PRN PRN Reason: COUGH Last Admin: 03/16/19 06:45 Dose: 10 ml Ceftriaxone Sodium 1 gm/ (Dextrose) 50 mls @ 100 mls/hr IVPB DAILY [facility] Last Admin: 03/16/19 09:23 Dose: 100 mls/hr Lisinopril (Prinivil) 5 mg PO BID [facility] Last Admin: 03/16/19 09:22 Dose: 5 mg Methimazole (Tapazole -) 5 mg PO BID [facility] Last Admin: 03/16/19 09:24 Dose: 5 mg Metoprolol Tartrate (Lopressor -) 100 mg PO BID [facility] Last Admin: 03/16/19 09:22 Dose: 100 mg - Objective Vital Signs: Vital Signs Temperature 98.6 F 03/16/19 09:10 Pulse Rate 70 03/16/19 09:10 Respiratory Rate 16 03/16/19 09:10 Blood Pressure 130/60 03/16/19 09:10 O2 Sat by Pulse Oximetry (%) 95 03/15/19 21:00 Constitutional: Yes: No Distress, Calm Eyes: No: Sclera Icterus HENT: No: Nasal Congestion Cardiovascular: Yes: Regular Rate and Rhythm, S1, S2, Other (PMI non diplaced). No: Gallop, Murmur Respiratory: Yes: CTA Bilaterally. No: Accessory Muscle Use, Rales, Wheezes Gastrointestinal: Yes: Normal Bowel Sounds, Soft. No: Tenderness Musculoskeletal: Yes: Other (No kyphosis) Extremities: No: Cold, Cyanosis Edema: No Integumentary: No: Jaundice Neurological: Yes: Alert, Oriented (x3) Psychiatric: No: Agitated Labs: CBC, BMP 03/15/19 05:30 03/15/19 05:30 INR, PTT INR 1.84 (0.83-1.09) H 03/14/19 09:49 Assessment/Plan ECG: sr, 1st avb, lat twis, no st changes, no sig change prior cxr: no sig chf [facility] 04/2018: 50-60% mid LAD with +FFR. EF 30% MPI 07/19 (marjan): no isch STs, pt in afib. mid-AW ischemia, distal IW ischemia. fixed apical defect. EF 30%, no TID Echo 02/19: mild LVE, EF 40-45% (HK of IW/IL). nl RV size, mild RV hypo. mod MR , central jet. no RVSP tele: NSR, artifact. no AF or SVT a/p: abd pain - CT abd/pelvis with R hydronephrosis and hydroureter - urology consult pending - GI deferring scopes at the moment cough with phlegm: - suspect URI/bronchitis - per PMD elevated trop - trop indeterminate range, flat trend, EKG no ischemic changes, no angina-- this is sec to chronic HF/HD - recent cath with 1VD (mid LAD)--no sx's with med mgmt - no further w/u indicated at this time - no signs ACS, no ischemia-targeted therapies indicated (continuing home regimen) hematuria vs vaginal bleeding: - w/u per , primary - if persists, would hold Eliquis while await definitive w/u CAD: -2018 stress test with ischemia in RCA and also LAD distributions; subsequent cardiac cath with borderline mid LAD lesion, flow-limiting by FFR--medically managed (no sx's, clearly not causal in LV dysfunction) -she has been asymptomatic (walks with walker on street at baseline) -cont home med regimen: AC (no ASA), statin, bb chronic syst/diast CHF (mixed), moderate MR, mild pHTN: -nonischemic CMP with varying LVEF's over time, confounded by TDS echo images ( uncontrolled DM long time, ? HTN-krista component) -cath unremarkable--as above -EF improved on contrast echo as outpt (40-45%), and she has tolerated med titration--continue metoprolol 100 bid, lisinopril 7.5 bid -has been clinically euvolemic for long time, with volume status stable with HD mgmt -continues to appear euvolemic here, outpt wt trend (pre and post dialysis wts) stable. parox AF: -pt incidentally noted to be in afib during stress test 2018 -no recurrence since -on good AVN louis regimen for PSVT prophylaxis--continue same -on Eliquis PSVT: -frequent episodes of very rapid SVT during prior hospital stays, whenever meds are interrupted -tolerating home metoprolol (100 bid) and diltiazem (30 bid) regimen long time, with good arrhythmia control--continue same HTN: -stable overall -same meds ESRD on HD: -dialysis per renal pulm fibrosis: -hospitalized here previously with unexplained interstitial lung dz picture, no specific dx made on bronch--treated empirically with steroids with good resolution; -per pmd h/o posterior circulation CVA: -on AC now (Aggrenox stopped), statin hyperthyroidism: -on methimazole, sees dr chiu for endo
[2019-03-16 09:46] LABS: EPI CELLS >36 /HPF (0-5/HPF); HYALINE CASTS 39 /lpf (0-8); URINE APPEARANCE TURBID; URINE BILIRUBIN 1+ (NEGATIVE); URINE COLOR ORANGE; URINE GLUCOSE (UA) NEGATIVE (NEGATIVE); URINE KETONE TRACE (NEGATIVE); URINE LEUK ESTERASE 2+ (NEGATIVE); URINE NITRITE NEGATIVE (NEGATIVE); URINE PROTEIN 2+ (NEGATIVE); URINE RBC 2566 /hpf (0-4); URINE WBC 847 /hpf (0-5)
--- NOTE | 2019-03-16 10:47 | CONSULT ---
Admitting History and Physical - Primary Care Physician PCP: Rebecca Villarreal S - Admission History of Present Illness: 69 year old female with pmhx of esrd, dm, ht, a-fib, and hcv who presents with abd pain and had vomiting at home prior to admission. Per PMD-She reports cough when she eats. WBC slightly higher CXR ? 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: CVA (transient speech loss and left hemiparesis in 2012) Cardiovascular: Yes: CHF, HTN, Hyperlipdemia Pulmonary: Yes: Asthma, Pneumonia, Other (ILD) Gastrointestinal: Yes: Constipation, GERD Hepatobiliary: Yes: Hepatitis C Renal/: Yes: Renal Inusuff ...: No Heme/Onc: Yes: Anemia Musculoskeletal: Yes: Osteoarthritis Endocrine: Yes: Diabetes Mellitus, Hyperthyroidism, Other - Past Surgical History Past Surgical History: Yes: , Hysterectomy, Appendectomy, Colonoscopy - Smoking History Smoking history: Unknown if ever smoked Have you smoked in the past 12 months: No Aproximately how many cigarettes per day: 0 - Alcohol/Substance Use Hx Alcohol Use: No History of Substance Use: reports: None - Social History ADL: Independent History of Recent Travel: No History - Admission Reason For Visit: MISSED DIALYSIS - Diagnostics X-ray: Report Reviewed CT Scan: Report Reviewed - General Mental Status: Alert and Oriented, Awake and Alert, Able to Follow Commands Attention: Intact Ability to Follow Directions: Excellent Head/Neck Control: WFL - Hearing Hearing: Normal Speech Evaluation - Communication Primary Language: LITHUANIAN Communication: Yes: Within Normal Limits Oral Expression Ability: Yes: No Impairment - Speech Production Able to Make Needs Known: Yes: WNL Intelligibility: Yes: WNL - Speech Characteristics Voice Loudness: Normal Voice Pitch: Yes: Normal Voice Phonatory-based Quality: Yes: Normal Speech Pattern: Normal Speech Clarity: < 100% Nasal Resonance: Normal Articulation: Yes: Precise Rate of Speech: Intact - Language/Auditory Comprehension Follows: Yes: 2 Stage Simple Commands Observation: Able to respond to yes/no queries: Yes, Yes/No Confusion: No, Comprehends Conversational Speech: Yes - Language/Verbal Expression Able to Respond to Simple Queries: Yes: WNL Able to Communicate Wants and Needs: Yes: WNL Functional Communication Status: Yes: WNL - Memory/Perception nursing home Memory: Yes: WNL Short Term Memory: Yes: WNL - Swallow Evaluation/Bedside Assessment Current Nutritional Intake: Soft Oral Secretions: Yes: WFL Dentition: Yes: Edentulous (lower), Dental Appliance Upper Facial Symmetry at Rest: Symmetrical Facial Symmetry on Retraction: Symmetrical Facial Movement: Controlled Sensation: Normal Against Resistance Opening: Normal Against Resistance Closing: Normal Pucker Lips: Normal Smile: Normal Lingual Movement: Normal, Symmetric Lingual Speed of Movement: Normal Lingual Movement Strgth Against Opposition: Normal Lingual Movement Characteristics: Normal Velopharyngeal Movement: Normal Laryngeal Elevation: WFL Laryngeal Movement: Able to Palpate Rate of Intake: WFL Bolus Size: WFL Labial Seal: WFL Chewing: Impaired (labored and extended, even with arthur cracker that melts, likely due to edentulous lowers.) Oral Prep Time: WFL Timing of Swallow: WFL Coughing/Throat Clear: No (3 oz water test (-)) Change in Voice: No Recommendations - Speech Evaluation, Impression/Plan Impression: Mastication labored and extended, even with arthur cracker that melts, likely due to edentulous lowers. Swallow seems brisk. r/o laryngopharyngeal reflux with globus sensation. Pt advised to reduce caffeine, carbonation, citrus, upright 2 hours after meals. - Dysphagia Impressions/Plan Swallowing Skills: WFL Dysphagia Impressions: Minimal Impairment *Silent aspiration: cannot be R/O at bedside Dysphagia Treatment Plan: OOB for meals, OOB for 1 h. after meals Recommendations: Modified Barium Swallow (if aspiration suspected. Bedside evaluation not indicative of aspiration) - Recommendations Diet Consistency: Mechanical Soft (soft, easy to chew, extra gravy) Medication Administration: Whole with water Liquids: Thin Liquids
--- NOTE | 2019-03-16 12:06 | PN ---
Progress Note (short form) - Note Progress Note: Renal follow up for ESRD on HD Seen and examined at the bedside awake and alert reports that abd and flank pain now resolved has dark, bloody urine no sob, cp, fever, chills s/p HD on Saturday Vital Signs Temperature 98.6 F 03/16/19 09:10 Pulse Rate 70 03/16/19 09:10 Respiratory Rate 16 03/16/19 10:00 Blood Pressure 130/60 03/16/19 09:10 O2 Sat by Pulse Oximetry (%) 95 03/16/19 11:14 Intake & Output 03/13/19 03/14/19 03/15/19 03/16/19 23:59 23:59 23:59 23:59 Intake Total 240 1770 200 Output Total 1500 Balance 240 270 200 Weight 102.965 kg 102.693 kg 102.693 kg NAD awake and alert neck supple RRR CTA soft NT/ND no LE edema slight CVA tenderness CBC, BMP 03/15/19 05:30 03/15/19 05:30 Current Medications Apixaban (Eliquis -) 5 mg PO BID [facility] Last Admin: 03/16/19 09:22 Dose: 5 mg Atorvastatin Calcium (Lipitor -) 40 mg PO HS [facility] Last Admin: 03/15/19 21:17 Dose: 40 mg Diltiazem HCl (Cardizem -) 30 mg PO BID [facility] Escitalopram Oxalate (Lexapro -) 5 mg PO DAILY [facility] Last Admin: 03/16/19 09:22 Dose: 5 mg Guaifenesin (Robitussin -) 10 ml PO Q6H PRN PRN Reason: COUGH Last Admin: 03/16/19 06:45 Dose: 10 ml Ceftriaxone Sodium 1 gm/ (Dextrose) 50 mls @ 100 mls/hr IVPB DAILY [facility] Last Admin: 03/16/19 09:23 Dose: 100 mls/hr Lisinopril (Prinivil) 7.5 mg PO BID [facility] Methimazole (Tapazole -) 5 mg PO BID [facility] Last Admin: 03/16/19 09:24 Dose: 5 mg Metoprolol Succinate (Toprol Xl -) 100 mg PO BID [facility] 69 year old female, with a significant PMH of ESRD on dialysis (//), diabetes mellitus, hypertension, atrial fibrillation on Eliquis, hyperthyroidism , HCV, who presents to the emergency department for LUQ abdominal pain. 1. Right hydronephrosis and hydroureter 2. Abdominal pain 3. ESRD on HD 4. Hypertension 5. CKD related anemia s/p HD on Saturday. Next planned dialysis is Saturday. Renal Diet, 1.2L Fluid restriction. Urology evaluation for hydronephrosis check urine culture continue present antihypertensives Trend H/H, REYNA if Hgb < 10 Thank you Jon Paz DO
[2019-03-16] MEDS ORDERED: SODIUM CHLORIDE 250 ML IV PRN (12:08)
--- NOTE | 2019-03-16 13:33 | CON.PULM ---
Consult Consult Specialty:: PULMONARY Referred by:: Dr Villarreal Reason for Consultation:: cough - History of Present Illness Chief Complaint: abdominal pain History of Present Illness: 69yo female with h/o DM, atrial fibrillation, CAD, LV systolic dysfunction, ESRD on HD, h/o CVA, hyperthyroidism, anemia who was admitted with worsening abdominal pain. Found to have right sided hydronephrosis and hydroureter. Consulted for chronic cough since September. She reports cough is nonproductive. Denies shortness of breath, chest tightness or wheezing. Of note, she had an acute interstitial lung process in 2015 with a nondiagnostic bronchoscopy. She was treated empirically with steroids with improvement. She reports childhood asthma. She never smoked. 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: CVA (transient speech loss and left hemiparesis in 2012) Cardio/Vascular: Yes: CHF, HTN, Hyperlipdemia Pulmonary: Yes: Asthma, Pneumonia, Other (ILD) Gastrointestinal: Yes: Constipation, GERD Hepatobiliary: Yes: Hepatitis C Renal/: Yes: Renal Inusuff ...: No Musculoskeletal: Yes: Osteoarthritis Endocrine: Yes: Diabetes Mellitus, Hyperthyroidism, Other - Past Surgical History Past Surgical History: Yes: , Hysterectomy, Appendectomy, Colonoscopy - Alcohol/Substance Use Hx Alcohol Use: No History of Substance Use: reports: None - Smoking History Smoking history: Unknown if ever smoked Have you smoked in the past 12 months: No Aproximately how many cigarettes per day: 0 - Social History Usual Living Arrangement: Alone () ADL: Independent History of Recent Travel: No Home Medications - Allergies Allergies/Adverse Reactions: Allergies Allergy/AdvReac Type Severity Reaction Status Date / Time mushroom Allergy Severe Rash Verified 03/14/19 08:53 nut - unspecified [nut] Allergy Severe "HIVES,THROAT Verified 03/14/19 08:53 CLOSES" povidone-iodine Allergy Severe Rash Verified 03/14/19 08:53 [From Betadine] soap [From Betadine] Allergy Severe Rash Verified 03/14/19 08:53 Fish Containing Products AdvReac Severe Swelling Verified 03/14/19 08:53 - Home Medications Home Medications: Ambulatory Orders Diltiazem [Cardizem -] 60 mg PO BID 05/09/17 Escitalopram Oxalate [Lexapro -] 5 mg PO DAILY 07/10/16 Apixaban [Eliquis] 5 mg PO BID 11/18/17 Methimazole [Tapazole] 5 mg PO BID 11/18/17 Atorvastatin Ca [Lipitor] 40 mg PO DAILY 03/14/19 Furosemide 80 mg PO DAILY 03/14/19 Lisinopril 5 mg PO BID 03/14/19 Metoprolol Tartrate 100 mg PO BID 03/14/19 Review of Systems - Review of Systems Constitutional: denies: Chills, Fever Eyes: denies: Recent Change in Vision HENT: denies: Nasal Congestion, Throat Pain Neck: denies: Stiffness, Tenderness Cardiovascular: denies: Chest Pain, Shortness of Breath Respiratory: reports: Cough. denies: Hemoptysis, Wheezing Gastrointestinal: reports: Abdominal Pain. denies: Nausea, Vomiting Genitourinary: reports: Hematuria. denies: Dysuria Neurological: denies: Headache Endocrine: denies: Unexplained Weight Loss Physical Exam Vital Sings: Vital Signs Temperature 98.6 F 03/16/19 09:10 Pulse Rate 70 03/16/19 09:10 Respiratory Rate 16 03/16/19 10:00 Blood Pressure 130/60 03/16/19 09:10 O2 Sat by Pulse Oximetry (%) 95 03/16/19 11:14 Constitutional: Yes: Calm Eyes: Yes: Conjunctiva Clear, EOM Intact HENT: Yes: Atraumatic, Normocephalic Neck: Yes: Supple, Trachea Midline Cardiovascular: Yes: Regular Rate and Rhythm Respiratory: Yes: Diminished (decreased breath sounds at the bases) ...Clubbing: No Gastrointestinal: Yes: Normal Bowel Sounds, Soft. No: Tenderness Edema: Yes Labs: CBC, BMP 03/15/19 05:30 03/15/19 05:30 Imaging - Results Chest X-ray: Report Reviewed, Image Reviewed Cat Scan: Image Reviewed (bibasilar atelectasis, no focal infiltrates) Problem List - Problems (1) Abdominal pain Code(s): R10.9 - UNSPECIFIED ABDOMINAL PAIN Qualifiers: Abdominal location: generalized Qualified Code(s): R10.84 - Generalized abdominal pain Assessment/Plan UTI R Hydronephrosis/Hydroureter LV Systolic Dysfunction Atrial Fibrillation CAD +Troponins likely Demand Ischemia ESRD on HD Atelectasis h/o ILD Hyperthyroidisdm h/o CVA DM Anemia - continue antibiotics - f/u cultures - eval - HD per renal - rate control - anticoagulation on hold - will start trial of ICS/LABA - outpt PFTs - f/u official CT chest read Thank you for this consult Russell Bonilla MD
[2019-03-16] MEDS: BUDESONIDE/FORMETEROL FUMARATE 160/4.5 mcg INHALER IH SCH ×2 (13:42→22:16)
[2019-03-16] MEDS: dilTIAZem HCL 30 MG TABLET (FP) PO SCH ×2 (13:52→22:15)
--- NOTE | 2019-03-16 15:40 | CON.GU ---
Consult Consult Specialty:: gu Referred by:: connie Reason for Consultation:: hematuria, hydronephrosis - History of Present Illness Chief Complaint: hematuria, hydronephrosis History of Present Illness: 69 year old woman with ESRD, noted to have hematuria and on CT dilated upper right ureter and right hydronephrosis, She is unaware of this finding. 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: CVA (transient speech loss and left hemiparesis in 2012) Cardio/Vascular: Yes: CHF, HTN, Hyperlipdemia Pulmonary: Yes: Asthma, Pneumonia, Other (ILD) Gastrointestinal: Yes: Constipation, GERD Hepatobiliary: Yes: Hepatitis C Renal/: Yes: Renal Inusuff ...: No Musculoskeletal: Yes: Osteoarthritis Endocrine: Yes: Diabetes Mellitus, Hyperthyroidism, Other - Past Surgical History Past Surgical History: Yes: , Hysterectomy, Appendectomy, Colonoscopy - Alcohol/Substance Use Hx Alcohol Use: No History of Substance Use: reports: None - Smoking History Smoking history: Unknown if ever smoked Have you smoked in the past 12 months: No Aproximately how many cigarettes per day: 0 - Social History Usual Living Arrangement: Alone () ADL: Independent History of Recent Travel: No Home Medications - Allergies Allergies/Adverse Reactions: Allergies Allergy/AdvReac Type Severity Reaction Status Date / Time mushroom Allergy Severe Rash Verified 03/14/19 08:53 nut - unspecified [nut] Allergy Severe "HIVES,THROAT Verified 03/14/19 08:53 CLOSES" povidone-iodine Allergy Severe Rash Verified 03/14/19 08:53 [From Betadine] soap [From Betadine] Allergy Severe Rash Verified 03/14/19 08:53 Fish Containing Products AdvReac Severe Swelling Verified 03/14/19 08:53 - Home Medications Home Medications: Ambulatory Orders Diltiazem [Cardizem -] 60 mg PO BID 07/10/16 Escitalopram Oxalate [Lexapro -] 5 mg PO DAILY 07/10/16 Apixaban [Eliquis] 5 mg PO BID 11/18/17 Methimazole [Tapazole] 5 mg PO BID 11/18/17 Atorvastatin Ca [Lipitor] 40 mg PO DAILY 03/14/19 Furosemide 80 mg PO DAILY 03/14/19 Lisinopril 5 mg PO BID 03/14/19 Metoprolol Tartrate 100 mg PO BID 03/14/19 Review of Systems - Review of Systems Genitourinary: reports: Flank Pain, Hematuria Physical Exam- Vital Signs: Vital Signs Temperature 98.9 F 03/16/19 13:48 Pulse Rate 61 03/16/19 13:48 Respiratory Rate 16 03/16/19 13:48 Blood Pressure 119/63 03/16/19 13:48 O2 Sat by Pulse Oximetry (%) 95 03/16/19 11:14 Renal/: No: Bladder Distention, CVA Tenderness - Left, CVA Tenderness - Right , Genao Present, Hematuria Labs: CBC, BMP 03/15/19 05:30 03/15/19 05:30 Imaging - Results Cat Scan: Report Reviewed Problem List - Problems (1) Hydronephrosis Assessment/Plan: unclear etiology. no stones seen. h/o hysterectomy but this was years ago. Plan for cystoscopy and retrograde pyelogram, tenatively 03/18/19 Code(s): N13.30 - UNSPECIFIED HYDRONEPHROSIS (2) Hematuria Code(s): R31.9 - HEMATURIA, UNSPECIFIED
[2019-03-16] MEDS ORDERED: PT OWN MED DRAWER 7, Y5N ONE ×3 (21:55→22:35)
[2019-03-16] MEDS: ATORVASTATIN CA 40 MG TABLET (FP) PO SCH (22:16)
--- NOTE | 2019-03-17 08:39 | PN ---
Progress Note, Physician Chief Complaint: no c/o in bed for cysto tomorrow - Current Medication List Current Medications: Active Medications Apixaban (Eliquis -) 5 mg PO BID [facility] Last Admin: 03/16/19 22:15 Dose: 5 mg Atorvastatin Calcium (Lipitor -) 40 mg PO HS [facility] Last Admin: 03/16/19 22:16 Dose: 40 mg Budesonide/Formoterol Fumarate (Symbicort 160/4.5mcg -) 2 puff IH BID [facility] Last Admin: 03/16/19 22:16 Dose: 2 puff Diltiazem HCl (Cardizem -) 30 mg PO BID [facility] Last Admin: 03/16/19 22:15 Dose: 30 mg Escitalopram Oxalate (Lexapro -) 5 mg PO DAILY [facility] Last Admin: 03/16/19 09:22 Dose: 5 mg Guaifenesin (Robitussin -) 10 ml PO Q6H PRN PRN Reason: COUGH Last Admin: 03/16/19 22:14 Dose: 10 ml Ceftriaxone Sodium 1 gm/ (Dextrose) 50 mls @ 100 mls/hr IVPB DAILY [facility] Last Admin: 03/16/19 09:23 Dose: 100 mls/hr Sodium Chloride (Normal Saline -) 250 mls @ 3,000 mls/hr IV PRN PRN PRN Reason: Hypotension during Dialysis Stop: 03/17/19 12:08 Lisinopril (Prinivil) 7.5 mg PO BID [facility] Last Admin: 03/16/19 22:15 Dose: 7.5 mg Methimazole (Tapazole -) 5 mg PO BID [facility] Last Admin: 03/16/19 22:16 Dose: 5 mg Metoprolol Succinate (Toprol Xl -) 100 mg PO BID [facility] Last Admin: 03/16/19 22:16 Dose: 100 mg - Objective Vital Signs: Vital Signs Temperature 98.5 F 03/17/19 06:55 Pulse Rate 65 03/17/19 08:30 Respiratory Rate 18 03/17/19 08:30 Blood Pressure 176/96 H 03/17/19 08:30 O2 Sat by Pulse Oximetry (%) 95 03/16/19 21:00 Constitutional: Yes: No Distress, Calm Eyes: Yes: Conjunctiva Clear HENT: Yes: Atraumatic Neck: Yes: Supple Cardiovascular: Yes: Regular Rate and Rhythm Respiratory: Yes: CTA Bilaterally Gastrointestinal: Yes: Soft. No: Tenderness Genitourinary: No: Hematuria Musculoskeletal: No: Joint Stiffness, Joint Swelling Extremities: No: Cold, Cool Edema: No Integumentary: No: Rash, Venous Stasis Changes Neurological: Yes: Alert, Oriented ...Motor Strength: WNL Psychiatric: Yes: Alert, Oriented. No: Agitated Labs: CBC, BMP 03/15/19 05:30 03/15/19 05:30 INR, PTT INR 1.84 (0.83-1.09) H 03/14/19 09:49 - ....Imaging Other: Report Reviewed Assessment/Plan The patient is a 69 year old female, with a significant PMH of ESRD on dialysis (//), diabetes mellitus, hypertension, atrial fibrillation on Eliquis, hyperthyroidism, HCV, who presents to the emergency department for LUQ abdominal pain, N/V; ASHD cardio f/u cough - iv ceftriaxone, pulm eval; abd pain, CT Hydronephrosis and GI f/u cysto in am HD per renal falls dercubs pfx d/w pt and staff
[2019-03-17 08:54] LABS: HEMATOCRIT 29.7 % (32.4-45.2); HEMOGLOBIN 9.8 GM/dL (10.7-15.3); MCH 26.8 pg (25.7-33.7); MCHC 33.1 g/dl (32.0-36.0); MEAN PLT VOLUME 9.5 fl (7.5-11.1); PLATELET COUNT 184 K/MM3 (134-434); RBC 3.66 M/mm3 (3.60-5.2); RDW 16.7 % (11.6-15.6); WHITE BLOOD COUNT 11.4 K/mm3 (4.0-10.0)
[2019-03-17 09:14] LABS: CREATININE 7.3 mg/dL (0.55-1.3); PHOSPHOROUS 4.4 mg/dL (2.5-4.9); POTASSIUM 4.1 mmol/L (3.5-5.1)
[2019-03-17] MEDS ORDERED: cefTRIAXone SODIUM 1 GM VIAL ONE (10:14)
[2019-03-17] MEDS ORDERED: DEXTROSE 5%-WATER - 50 ML IVPB ONE (10:14)
[2019-03-17] MEDS: CEFTRIAXONE 1 GM in DEXTROSE 5%-WATER - 50 ML IVPB SCH (10:22)
[2019-03-17] MEDS: APIXABAN 5 MG TABLET PO SCH ×2 (10:23→21:21)
[2019-03-17] MEDS: LISINOPRIL 5 MG TABLET (FP) PO SCH ×2 (10:23→21:22)
[2019-03-17] MEDS: BUDESONIDE/FORMETEROL FUMARATE 160/4.5 mcg INHALER IH SCH ×2 (10:23→21:23)
[2019-03-17] MEDS: dilTIAZem HCL 30 MG TABLET (FP) PO SCH ×2 (10:23→21:21)
[2019-03-17] MEDS: METHIMAZOLE 5 MG TABLET (FP) PO SCH ×2 (10:23→21:22)
[2019-03-17] MEDS: ESCITALOPRAM OXALATE 10 MG TABLET PO SCH (10:23)
--- NOTE | 2019-03-17 10:47 | PN ---
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 Pt received pureed food. She is capable of tolerating soft, solid foods such as mac/cheese, pasta, uruguayan toast, eggs, etc She dislikes fish. Reviewed with dietary to clarify my recommendations. For suspected laryngo-pharyngeal reflux, reviewed need to be upright after meals , omit caffeine (decaf tea preferred) and carbonation (likes jose luis gregory- suggest let it become flat)
--- NOTE | 2019-03-17 12:41 | PN ---
Progress Note (short form) - Note Progress Note: PULMONARY States cough is improving with inhaler. No shortness of breath. Vital Signs Period Temp Pulse Resp BP Sys/Chavarria Pulse Ox Last 24 Hr 98.1 F-98.9 F 59-105 16-18 119-177/59-98 95 Gen: NAD at rest Heart: RRR Lung: decreased breath sounds at the bases Abd: soft, nontender Ext: no edema CBC, BMP 03/17/19 07:00 03/17/19 06:19 Active Medications Apixaban (Eliquis -) 5 mg PO BID [facility] Last Admin: 03/17/19 10:23 Dose: 5 mg Atorvastatin Calcium (Lipitor -) 40 mg PO HS [facility] Last Admin: 03/16/19 22:16 Dose: 40 mg Budesonide/Formoterol Fumarate (Symbicort 160/4.5mcg -) 2 puff IH BID [facility] Last Admin: 03/17/19 10:23 Dose: 2 puff Diltiazem HCl (Cardizem -) 30 mg PO BID [facility] Last Admin: 03/17/19 10:23 Dose: 30 mg Escitalopram Oxalate (Lexapro -) 5 mg PO DAILY [facility] Last Admin: 03/17/19 10:23 Dose: 5 mg Guaifenesin (Robitussin -) 10 ml PO Q6H PRN PRN Reason: COUGH Last Admin: 03/16/19 22:14 Dose: 10 ml Ceftriaxone Sodium 1 gm/ (Dextrose) 50 mls @ 100 mls/hr IVPB DAILY [facility] Last Admin: 03/17/19 10:22 Dose: 100 mls/hr Sodium Chloride (Normal Saline -) 250 mls @ 3,000 mls/hr IV PRN PRN PRN Reason: Hypotension during Dialysis Stop: 03/17/19 12:08 Lisinopril (Prinivil) 7.5 mg PO BID [facility] Last Admin: 03/17/19 10:23 Dose: 7.5 mg Methimazole (Tapazole -) 5 mg PO BID [facility] Last Admin: 03/17/19 10:23 Dose: 5 mg Metoprolol Succinate (Toprol Xl -) 100 mg PO BID [facility] Last Admin: 03/17/19 10:23 Dose: 100 mg A/P UTI R Hydronephrosis/Hydroureter LV Systolic Dysfunction Atrial Fibrillation CAD +Troponins likely Demand Ischemia ESRD on HD Atelectasis h/o ILD Hyperthyroidisdm h/o CVA DM Anemia - continue antibiotics - f/u cultures - for cystoscopy - HD per renal - rate control - anticoagulation on hold - continue Symbicort - outpt PFTs Problem List - Problems (1) Abdominal pain Code(s): R10.9 - UNSPECIFIED ABDOMINAL PAIN Qualifiers: Abdominal location: generalized Qualified Code(s): R10.84 - Generalized abdominal pain
--- NOTE | 2019-03-17 14:40 | PN ---
Progress Note (short form) - Note Progress Note: Renal follow up for ESRD on HD Seen and examined at the bedside s/p dialysis this am, tolerated it well. UF 2.5L offers no acute complaints has no abdominal pain now no fevers, chills Vital Signs Temperature 98.5 F 03/17/19 06:55 Pulse Rate 60 03/17/19 10:20 Respiratory Rate 18 03/17/19 10:20 Blood Pressure 154/81 03/17/19 10:20 O2 Sat by Pulse Oximetry (%) 95 03/17/19 10:00 Intake & Output 03/14/19 03/15/19 03/16/19 03/17/19 23:59 23:59 23:59 23:59 Intake Total 240 1770 1250 1200 Output Total 7146 516 1353 Balance 376 917 9913 -1800 Weight 102.965 kg 102.693 kg 102.693 kg 102.693 kg NAD awake and alert neck supple RRR CTA soft NT/ND no LE edema slight CVA tenderness CBC, BMP 03/17/19 07:00 03/17/19 06:19 Current Medications Apixaban (Eliquis -) 5 mg PO BID [facility] Last Admin: 03/17/19 10:23 Dose: 5 mg Atorvastatin Calcium (Lipitor -) 40 mg PO HS [facility] Last Admin: 03/16/19 22:16 Dose: 40 mg Budesonide/Formoterol Fumarate (Symbicort 160/4.5mcg -) 2 puff IH BID [facility] Last Admin: 03/17/19 10:23 Dose: 2 puff Diltiazem HCl (Cardizem -) 30 mg PO BID [facility] Last Admin: 03/17/19 10:23 Dose: 30 mg Escitalopram Oxalate (Lexapro -) 5 mg PO DAILY [facility] Last Admin: 03/17/19 10:23 Dose: 5 mg Guaifenesin (Robitussin -) 10 ml PO Q6H PRN PRN Reason: COUGH Last Admin: 03/16/19 22:14 Dose: 10 ml Ceftriaxone Sodium 1 gm/ (Dextrose) 50 mls @ 100 mls/hr IVPB DAILY [facility] Last Admin: 03/17/19 10:22 Dose: 100 mls/hr Sodium Chloride (Normal Saline -) 250 mls @ 3,000 mls/hr IV PRN PRN PRN Reason: Hypotension during Dialysis Stop: 03/17/19 12:08 Lisinopril (Prinivil) 7.5 mg PO BID [facility] Last Admin: 03/17/19 10:23 Dose: 7.5 mg Methimazole (Tapazole -) 5 mg PO BID [facility] Last Admin: 03/17/19 10:23 Dose: 5 mg Metoprolol Succinate (Toprol Xl -) 100 mg PO BID [facility] Last Admin: 03/17/19 10:23 Dose: 100 mg 69 year old female, with a significant PMH of ESRD on dialysis (//), diabetes mellitus, hypertension, atrial fibrillation on Eliquis, hyperthyroidism , HCV, who presents to the emergency department for LUQ abdominal pain. 1. Right hydronephrosis and hydroureter 2. Abdominal pain 3. ESRD on HD 4. Hypertension 5. CKD related anemia Tolerated dialysis today. Renal Diet, 1.2L Fluid restriction. For cystoscoy tomorrow per urology urine culture w/o growth continue present antihypertensives Trend H/H, REYNA if Hgb < 10 Thank you Jon Paz DO
--- NOTE | 2019-03-17 14:52 | PN ---
Progress Note, Physician Chief Complaint: Feels better Less SOB No CP TELE: NSR, occasional V couplets. Periods of sinus tach vs atach 120s/self limited - Current Medication List Current Medications: Active Medications Apixaban (Eliquis -) 5 mg PO BID [facility] Last Admin: 03/17/19 10:23 Dose: 5 mg Atorvastatin Calcium (Lipitor -) 40 mg PO HS [facility] Last Admin: 03/16/19 22:16 Dose: 40 mg Budesonide/Formoterol Fumarate (Symbicort 160/4.5mcg -) 2 puff IH BID [facility] Last Admin: 03/17/19 10:23 Dose: 2 puff Diltiazem HCl (Cardizem -) 30 mg PO BID [facility] Last Admin: 03/17/19 10:23 Dose: 30 mg Escitalopram Oxalate (Lexapro -) 5 mg PO DAILY [facility] Last Admin: 03/17/19 10:23 Dose: 5 mg Guaifenesin (Robitussin -) 10 ml PO Q6H PRN PRN Reason: COUGH Last Admin: 03/16/19 22:14 Dose: 10 ml Ceftriaxone Sodium 1 gm/ (Dextrose) 50 mls @ 100 mls/hr IVPB DAILY [facility] Last Admin: 03/17/19 10:22 Dose: 100 mls/hr Sodium Chloride (Normal Saline -) 250 mls @ 3,000 mls/hr IV PRN PRN PRN Reason: Hypotension during Dialysis Stop: 03/17/19 12:08 Lisinopril (Prinivil) 7.5 mg PO BID [facility] Last Admin: 03/17/19 10:23 Dose: 7.5 mg Methimazole (Tapazole -) 5 mg PO BID [facility] Last Admin: 03/17/19 10:23 Dose: 5 mg Metoprolol Succinate (Toprol Xl -) 100 mg PO BID [facility] Last Admin: 03/17/19 10:23 Dose: 100 mg - Objective Vital Signs: Vital Signs Temperature 98.5 F 03/17/19 06:55 Pulse Rate 60 03/17/19 10:20 Respiratory Rate 18 03/17/19 10:20 Blood Pressure 154/81 03/17/19 10:20 O2 Sat by Pulse Oximetry (%) 95 03/17/19 10:00 Constitutional: Yes: Calm Cardiovascular: Yes: Regular Rate and Rhythm Respiratory: Yes: Other (rales bases 1/3 up b/l.) Gastrointestinal: Yes: Soft, Abdomen, Obese Edema: Yes Edema: LLE: 1+, RLE: 1+ Neurological: Yes: Alert, Oriented Labs: CBC, BMP 03/17/19 07:00 03/17/19 06:19 INR, PTT INR 1.84 (0.83-1.09) H 03/14/19 09:49 - ....Imaging EKG: Image Reviewed Assessment/Plan Assessment/Plan ECG: sr, 1st avb, lat twis, no st changes, no sig change prior cxr: no sig chf [facility] 04/2018: 50-60% mid LAD with +FFR. EF 30% MPI 07/19 (marjan): no isch STs, pt in afib. mid-AW ischemia, distal IW ischemia. fixed apical defect. EF 30%, no TID Echo 02/19: mild LVE, EF 40-45% (HK of IW/IL). nl RV size, mild RV hypo. mod MR , central jet. no RVSP tele: NSR, artifact. no AF or SVT a/p: abd pain - CT abd/pelvis with R hydronephrosis and hydroureter - urology consult pending - GI deferring scopes at the moment cough with phlegm: - suspect URI/bronchitis - per PMD elevated trop: - trop indeterminate range, flat trend, EKG no ischemic changes, no angina-- this is sec to chronic HF/HD - recent cath with 1VD (mid LAD)--no sx's with med mgmt - no further w/u indicated at this time - no signs ACS, no ischemia-targeted therapies indicated (continuing home regimen) hematuria vs vaginal bleeding: - w/u per , primary - if persists, would hold Eliquis while await definitive w/u CAD: -2018 stress test with ischemia in RCA and also LAD distributions; subsequent cardiac cath with borderline mid LAD lesion, flow-limiting by FFR--medically managed (no sx's, clearly not causal in LV dysfunction) -she has been asymptomatic (walks with walker on street at baseline) -cont home med regimen: AC (no ASA), statin, bb chronic syst/diast CHF (mixed), moderate MR, mild pHTN: -nonischemic CMP with varying LVEF's over time, confounded by TDS echo images ( uncontrolled DM long time, ? HTN-krista component) -cath unremarkable--as above -EF improved on contrast echo as outpt (40-45%), and she has tolerated med titration--continue metoprolol 100 bid, lisinopril 7.5 bid -has been clinically euvolemic for long time, with volume status stable with HD mgmt parox AF: -pt incidentally noted to be in afib during stress test 2018 -no recurrence since -on good AVN louis regimen for PSVT prophylaxis--continue same -on Eliquis PSVT: -frequent episodes of very rapid SVT during prior hospital stays, whenever meds are interrupted -tolerating home metoprolol (100 bid) and diltiazem (30 bid) regimen long time, with good arrhythmia control--continue same HTN: -stable overall -same meds ESRD on HD: -dialysis per renal pulm fibrosis: -hospitalized here previously with unexplained interstitial lung dz picture, no specific dx made on bronch--treated empirically with steroids with good resolution; -per pmd h/o posterior circulation CVA: -on AC now (Aggrenox stopped), statin hyperthyroidism: -on methimazole, sees dr chiu for endo
--- NOTE | 2019-03-17 15:50 | PN.GI ---
GI Progress Note Subjective: Some flank discomfort No abdominal pain Had colonoscopy [address] Morley: sigmoid diverticulosis Scheduled for cystoscopy 03/18 - Objective Vital Signs: Vital Signs Temperature 98.9 F 03/17/19 15:02 Pulse Rate 68 03/17/19 15:02 Respiratory Rate 18 03/17/19 15:02 Blood Pressure 132/82 03/17/19 15:02 O2 Sat by Pulse Oximetry (%) 95 03/17/19 10:00 Constitutional: Calm Eyes: No: Sclera Icterus Cardiovascular: Yes: Regular Rate and Rhythm Respiratory: Yes: Diminished (at bases bilaterally with poor insp effort) Gastrointestinal Inspection: No: Distention ...Auscultate: Yes: Normoactive Bowel Sounds ...Palpate: No: Hepatomegaly, Soft, Splenomegaly, Tenderness ...Percussion: No: Tympanitic Edema: No (No LE edema) Labs: CBC, BMP 03/17/19 07:00 03/17/19 06:19 INR, PTT INR 1.84 (0.83-1.09) H 03/14/19 09:49 Problem List - Problems (1) Abdominal pain Assessment/Plan: More flankl pain and having cysto tomorrow Code(s): R10.9 - UNSPECIFIED ABDOMINAL PAIN Qualifiers: Abdominal location: generalized Qualified Code(s): R10.84 - Generalized abdominal pain (2) Hepatitis C Assessment/Plan: Agreeable to being evaluated as outpatient for treatment. Would like to follow- up with Dr. Morley, who performed Ms. Correia's colonoscopy. Code(s): B19.20 - UNSPECIFIED VIRAL HEPATITIS C WITHOUT HEPATIC COMA
--- NOTE | 2019-03-17 16:14 | PN ---
Progress Note (short form) - Note Progress Note: to OR tomorrow for cystoscopy and retrograde pyelogram and possible stent. Problem List - Problems (1) Hydronephrosis Code(s): N13.30 - UNSPECIFIED HYDRONEPHROSIS (2) Hematuria Code(s): R31.9 - HEMATURIA, UNSPECIFIED
[2019-03-17] MEDS ORDERED: PT OWN MED DRAWER 7, Y5N ONE (21:19)
[2019-03-17] MEDS: ATORVASTATIN CA 40 MG TABLET (FP) PO SCH (21:21)
[2019-03-17] MEDS: guaiFENesin 200 MG/10 ML 10 ML UNIT-DOSE CUPS PO PRN (21:36)
[2019-03-18] MEDS ORDERED: fentaNYL CITRATE 250 MCG/5 ML VIAL ONE (09:48)
--- NOTE | 2019-03-18 09:48 | PN ---
Progress Note, Physician Chief Complaint: in bed NAD VSS cysto - Current Medication List Current Medications: Active Medications Apixaban (Eliquis -) 5 mg PO BID [facility] Last Admin: 03/17/19 21:21 Dose: 5 mg Atorvastatin Calcium (Lipitor -) 40 mg PO HS [facility] Last Admin: 03/17/19 21:21 Dose: 40 mg Budesonide/Formoterol Fumarate (Symbicort 160/4.5mcg -) 2 puff IH BID [facility] Last Admin: 03/17/19 21:23 Dose: 2 puff Diltiazem HCl (Cardizem -) 30 mg PO BID [facility] Last Admin: 03/17/19 21:21 Dose: 30 mg Escitalopram Oxalate (Lexapro -) 5 mg PO DAILY [facility] Last Admin: 03/17/19 10:23 Dose: 5 mg Guaifenesin (Robitussin -) 10 ml PO Q6H PRN PRN Reason: COUGH Last Admin: 03/17/19 21:36 Dose: 10 ml Ceftriaxone Sodium 1 gm/ (Dextrose) 50 mls @ 100 mls/hr IVPB DAILY [facility] Last Admin: 03/17/19 10:22 Dose: 100 mls/hr Sodium Chloride (Normal Saline -) 250 mls @ 3,000 mls/hr IV PRN PRN PRN Reason: Hypotension during Dialysis Stop: 03/17/19 12:08 Lisinopril (Prinivil) 7.5 mg PO BID [facility] Last Admin: 03/17/19 21:22 Dose: 7.5 mg Methimazole (Tapazole -) 5 mg PO BID [facility] Last Admin: 03/17/19 21:22 Dose: 5 mg Metoprolol Succinate (Toprol Xl -) 100 mg PO BID [facility] Last Admin: 03/17/19 21:21 Dose: 100 mg - Objective Vital Signs: Vital Signs Temperature 98.0 F 03/18/19 07:59 Pulse Rate 54 L 03/18/19 07:59 Respiratory Rate 18 03/18/19 07:59 Blood Pressure 145/65 03/18/19 07:59 O2 Sat by Pulse Oximetry (%) 94 L 03/17/19 21:00 Constitutional: Yes: No Distress, Calm Eyes: Yes: Conjunctiva Clear HENT: Yes: Atraumatic Neck: Yes: Supple Cardiovascular: Yes: Regular Rate and Rhythm Respiratory: Yes: CTA Bilaterally Gastrointestinal: Yes: Soft. No: Tenderness Genitourinary: No: Hematuria Musculoskeletal: No: Joint Stiffness, Joint Swelling Extremities: No: Cold, Cool Edema: No Integumentary: No: Rash, Venous Stasis Changes Neurological: Yes: Alert, Oriented ...Motor Strength: WNL Psychiatric: Yes: Alert, Oriented. No: Agitated Labs: CBC, BMP 03/17/19 07:00 03/17/19 06:19 INR, PTT INR 1.84 (0.83-1.09) H 03/14/19 09:49 - ....Imaging Other: Report Reviewed Assessment/Plan The patient is a 69 year old female, with a significant PMH of ESRD on dialysis (//), diabetes mellitus, hypertension, atrial fibrillation on Eliquis, hyperthyroidism, HCV, who presents to the emergency department for LUQ abdominal pain, N/V; ASHD cardio f/u cough - iv ceftriaxone, pulm f.u Hydronephrosis and GI f/u cysto per HD per renal falls dercubs pfx d/w pt and staff
[2019-03-18] MEDS ORDERED: MIDAZOLAM HCL 2 MG/2 ML SINGLE DOSE VIAL ONE (09:49)
[2019-03-18] MEDS ORDERED: SUCCINYLCHOLINE CHLORIDE 200 MG/10 ML SYRINGE ONE (09:49)
[2019-03-18] MEDS ORDERED: PROPOFOL 20 ML ONE (09:49)
[2019-03-18] MEDS ORDERED: DEXAMETHASONE SOD PHOSPHATE 4 MG/1 ML VIAL ONE (09:50)
[2019-03-18] MEDS ORDERED: SODIUM CHLORIDE 0.9% P/F 10 ML VIAL IJ ONE (09:50)
[2019-03-18] MEDS ORDERED: LIDOCAINE HCL 2% JELLY (5 ML/TUBE) ONE (09:50)
[2019-03-18] MEDS ORDERED: ceFAZolin SODIUM 1 GM VIAL ONE (09:50)
[2019-03-18] MEDS ORDERED: LIDOCAINE HCL/PF 2% SDV 5ML VIAL ONE (09:50)
[2019-03-18] MEDS ORDERED: ceFAZolin SODIUM 1 GM VIAL IVPB ONE (10:09)
[2019-03-18] MEDS ORDERED: IOHEXOL 300 MG/ML INFUS..BTL IV ONE (10:25)
--- NOTE | 2019-03-18 10:48 | OP ---
Operative Note - Note: Operative Date: 03/18/19 Pre-Operative Diagnosis: right renal colic, hydronephrosis Operation: cysto, R RUG, ureteral stent placement Findings: tortuous right ureter Post-Operative Diagnosis: Same as Pre-op Surgeon: Elijah Traylor Anesthesia: General Drains & Tubes with Location: right ureteral stent
[2019-03-18] MEDS ORDERED: cefTRIAXone SODIUM 1 GM VIAL ONE (11:00)
[2019-03-18] MEDS ORDERED: DEXTROSE 5%-WATER - 50 ML IVPB ONE (11:01)
[2019-03-18] MEDS ORDERED: ACETAMINOPHEN 1000 MG/100 ML VIAL (NON FORMULARY) IVPB ONE (11:12)
[2019-03-18] MEDS ORDERED: SODIUM CHLORIDE 250 ML IV PRN (11:25)
[2019-03-18] MEDS ORDERED: ACETAMINOPHEN INJECTION 100 ML IVPB ONE (11:30)
[2019-03-18] MEDS ORDERED: ONDANSETRON 4 MG/2 ML VIAL IVPUSH PRN (11:50)
[2019-03-18] MEDS: LISINOPRIL 5 MG TABLET (FP) PO SCH ×3 (12:34→21:30)
[2019-03-18] MEDS: dilTIAZem HCL 30 MG TABLET (FP) PO SCH ×3 (12:35→21:32)
[2019-03-18] MEDS: ESCITALOPRAM OXALATE 10 MG TABLET PO SCH ×2 (13:04→13:34)
[2019-03-18] MEDS: METHIMAZOLE 5 MG TABLET (FP) PO SCH ×3 (13:06→21:32)
[2019-03-18] MEDS: SODIUM CHLORIDE 1,000 ML IV SCH (13:07)
[2019-03-18] MEDS: BUDESONIDE/FORMETEROL FUMARATE 160/4.5 mcg INHALER IH SCH ×3 (13:11→21:33)
--- NOTE | 2019-03-18 13:29 | PN ---
Progress Note (short form) - Note Progress Note: PULMONARY States cough is improving. No shortness of breath. Vital Signs Period Temp Pulse Resp BP Sys/Chavarria Pulse Ox Last 24 Hr 98 F-98.9 F 54-82 16-20 91-172/58-82 94-100 Gen: NAD at rest Heart: RRR Lung: decreased breath sounds at the bases Abd: soft, nontender Ext: no edema CBC, BMP 03/17/19 07:00 03/17/19 06:19 Active Medications Apixaban (Eliquis -) 5 mg PO BID [facility] Atorvastatin Calcium (Lipitor -) 40 mg PO HS [facility] Budesonide/Formoterol Fumarate (Symbicort 160/4.5mcg -) 2 puff IH BID [facility] Last Admin: 03/18/19 13:11 Dose: 2 puff Diltiazem HCl (Cardizem -) 30 mg PO BID [facility] Last Admin: 03/18/19 12:35 Dose: 30 mg Escitalopram Oxalate (Lexapro -) 5 mg PO DAILY [facility] Last Admin: 03/18/19 13:04 Dose: 5 mg Fentanyl (Sublimaze Injection -) 25 mcg IVPUSH [id number] PRN PRN Reason: PAIN-PACU ORDER X 4 DOSES ONLY Guaifenesin (Robitussin -) 10 ml PO Q6H PRN PRN Reason: COUGH Sodium Chloride (Normal Saline -) 250 mls @ 3,000 mls/hr IV PRN PRN PRN Reason: Hypotension during Dialysis Ceftriaxone Sodium 1 gm/ (Dextrose) 50 mls @ 100 mls/hr IVPB DAILY [facility] Sodium Chloride (Normal Saline -) 1,000 mls @ 75 mls/hr IV ASDIR [facility] Last Admin: 03/18/19 13:07 Dose: 75 mls/hr Lisinopril (Prinivil) 7.5 mg PO BID [facility] Last Admin: 03/18/19 12:34 Dose: 7.5 mg Methimazole (Tapazole -) 5 mg PO BID [facility] Last Admin: 03/18/19 13:06 Dose: 5 mg Metoprolol Succinate (Toprol Xl -) 100 mg PO BID [facility] Last Admin: 03/18/19 12:35 Dose: 100 mg Ondansetron HCl (Zofran Injection) 4 mg IVPUSH Q6H PRN PRN Reason: NAUSEA AND/OR VOMITING A/P UTI R Hydronephrosis/Hydroureter LV Systolic Dysfunction Atrial Fibrillation CAD +Troponins likely Demand Ischemia ESRD on HD Atelectasis h/o ILD Hyperthyroidisdm h/o CVA DM Anemia - continue antibiotics - HD per renal - rate control - continue anticoagulation - continue Symbicort - outpt PFTs Problem List - Problems (1) Abdominal pain Code(s): R10.9 - UNSPECIFIED ABDOMINAL PAIN Qualifiers: Abdominal location: generalized Qualified Code(s): R10.84 - Generalized abdominal pain
[2019-03-18] MEDS: CEFTRIAXONE 1 GM in DEXTROSE 5%-WATER - 50 ML IVPB SCH ×2 (13:36→14:09)
[2019-03-18 14:23] VITALS: BMI 36.1
--- NOTE | 2019-03-18 14:43 | PN ---
Progress Note (short form) - Note Progress Note: s: no cp sob palps dizzy TELE: sr - Current Medication List Current Medications Generic Name Dose Route Start Last Admin Trade Name Freq PRN Reason Stop Dose Admin Apixaban 5 mg 03/18/19 22:00 Eliquis - PO BID EMELINA Atorvastatin Calcium 40 mg 03/18/19 22:00 Lipitor - PO HS EMELINA Budesonide/Formoterol Fumarate 2 puff 03/18/19 13:00 03/18/19 13:11 Symbicort 160/4.5mcg - IH 2 puff BID EMELINA Administration Diltiazem HCl 30 mg 03/18/19 12:30 03/18/19 12:35 Cardizem - PO 30 mg BID EMELINA Administration Escitalopram Oxalate 5 mg 03/18/19 12:45 03/18/19 13:04 Lexapro - PO 5 mg DAILY EMELINA Administration Guaifenesin 10 ml 03/18/19 11:25 Robitussin - PO Q6H PRN COUGH Sodium Chloride 250 mls @ 3,000 mls/hr 03/18/19 11:25 Normal Saline - IV PRN PRN Hypotension during Dialysis Ceftriaxone Sodium 1 gm/ 50 mls @ 100 mls/hr 03/18/19 15:00 03/18/19 14:09 Dextrose IVPB 100 mls/hr DAILY EMELINA Administration Sodium Chloride 1,000 mls @ 75 mls/hr 03/18/19 12:00 03/18/19 13:07 Normal Saline - IV 75 mls/hr ASDIR EMELINA Administration Lisinopril 7.5 mg 03/18/19 12:30 03/18/19 12:34 Prinivil PO 7.5 mg BID EMELINA Administration Methimazole 5 mg 03/18/19 12:45 03/18/19 13:06 Tapazole - PO 5 mg BID EMELINA Administration Metoprolol Succinate 100 mg 03/18/19 12:30 03/18/19 12:35 Toprol Xl - PO 100 mg BID EMELINA Administration Ondansetron HCl 4 mg 03/18/19 11:50 Zofran Injection IVPUSH Q6H PRN NAUSEA AND/OR VOMITING Vital Signs Period Temp Pulse Resp BP Sys/Chavarria Pulse Ox Last 24 Hr 98 F-98.9 F 54-82 16-20 91-172/58-82 94-100 Constitutional: Yes: Calm Cardiovascular: Yes: Regular Rate and Rhythm Respiratory: Yes: Other (rales bases 1/3 up b/l.) Gastrointestinal: Yes: Soft, Abdomen, Obese Edema: no Neurological: Yes: Alert, Oriented no jaundice diaphoresis Labs: CBC,CMP WBC 11.4 K/mm3 (4.0-10.0) H 03/17/19 07:00 RBC 3.66 M/mm3 (3.60-5.2) 03/17/19 07:00 Hgb 9.8 GM/dL (10.7-15.3) L 03/17/19 07:00 Hct 29.7 % (32.4-45.2) L 03/17/19 07:00 MCV 81.0 fl (80-96) 03/17/19 07:00 MCH 26.8 pg (25.7-33.7) 03/17/19 07:00 MCHC 33.1 g/dl (32.0-36.0) 03/17/19 07:00 RDW 16.7 % (11.6-15.6) H 03/17/19 07:00 Plt Count 184 K/MM3 (134-434) 03/17/19 07:00 MPV 9.5 fl (7.5-11.1) 03/17/19 07:00 Absolute Neuts (auto) 7.8 K/mm3 (1.5-8.0) 03/15/19 05:30 Neutrophils % 66.1 % (42.8-82.8) 03/15/19 05:30 Lymphocytes % 19.0 % (8-40) D 03/15/19 05:30 Monocytes % 11.5 % (3.8-10.2) H 03/15/19 05:30 Eosinophils % 2.7 % (0-4.5) D 03/15/19 05:30 Basophils % 0.7 % (0-2.0) 03/15/19 05:30 Nucleated RBC % 0 % (0-0) 03/15/19 05:30 Sodium 133 mmol/L (136-145) L 03/17/19 06:19 Potassium 4.1 mmol/L (3.5-5.1) 03/17/19 06:19 Chloride 96 mmol/L (98-107) L 03/17/19 06:19 Carbon Dioxide 29 mmol/L (21-32) 03/17/19 06:19 Anion Gap 8 MMOL/L (8-16) 03/17/19 06:19 BUN 40.0 mg/dL (7-18) H 03/17/19 06:19 Creatinine 7.3 mg/dL (0.55-1.3) H 03/17/19 06:19 Est GFR (CKD-EPI)AfAm 6.02 03/17/19 06:19 Est GFR (CKD-EPI)NonAf 5.19 03/17/19 06:19 Random Glucose 77 mg/dL (74-106) 03/17/19 06:19 Calcium 8.0 mg/dL (8.5-10.1) L 03/17/19 06:19 Phosphorus 4.4 mg/dL (2.5-4.9) 03/17/19 06:19 Magnesium 2.6 mg/dL (1.8-2.4) H 03/14/19 09:49 Total Bilirubin 0.6 mg/dL (0.2-1) 03/15/19 05:30 AST 21 U/L (15-37) 03/15/19 05:30 ALT 14 U/L (13-61) 03/15/19 05:30 Alkaline Phosphatase 206 U/L (45-117) H 03/15/19 05:30 Creatine Kinase 161 U/L (26-192) 03/15/19 05:30 Creatine Kinase Index 1.4 % (0.0-5.0) 03/15/19 05:30 CK-MB (CK-2) 2.4 ng/mL (0.5-3.6) 03/15/19 05:30 Troponin I 0.22 ng/ml (0.00-0.05) H 03/15/19 05:30 Total Protein 7.2 g/dl (6.4-8.2) 03/15/19 05:30 Albumin 3.1 g/dl (3.4-5.0) L 03/15/19 05:30 Lipase 137 U/L (73-393) 03/14/19 09:49 Assessment/Plan ECG: sr, 1st avb, lat twis, no st changes, no sig change prior cxr: no sig chf [facility] 04/2018: 50-60% mid LAD with +FFR. EF 30% MPI 07/19 (marjan): no isch STs, pt in afib. mid-AW ischemia, distal IW ischemia. fixed apical defect. EF 30%, no TID Echo 02/19: mild LVE, EF 40-45% (HK of IW/IL). nl RV size, mild RV hypo. mod MR , central jet. no RVSP a/p: abd pain - CT abd/pelvis with R hydronephrosis and hydroureter - s/p ureter stenting, gu following cough with phlegm: - suspect URI/bronchitis - per PMD elevated trop: - trop indeterminate range, flat trend, EKG no ischemic changes, no angina-- this is sec to chronic HF/HD - recent cath with 1VD (mid LAD)--no sx's with med mgmt - no further w/u indicated at this time - no signs ACS, no ischemia-targeted therapies indicated (continuing home regimen) CAD: -2018 stress test with ischemia in RCA and also LAD distributions; subsequent cardiac cath with borderline mid LAD lesion, flow-limiting by FFR--medically managed (no sx's, clearly not causal in LV dysfunction) -she has been asymptomatic (walks with walker on street at baseline) -cont home med regimen: AC (no ASA), statin, bb chronic syst/diast CHF (mixed), moderate MR, mild pHTN: -nonischemic CMP with varying LVEF's over time, confounded by TDS echo images ( uncontrolled DM long time, ? HTN-krista component) -cath unremarkable--as above -EF improved on contrast echo as outpt (40-45%), and she has tolerated med titration--continue metoprolol 100 bid, lisinopril 7.5 bid -has been clinically euvolemic for long time, with volume status stable with HD mgmt parox AF: -pt incidentally noted to be in afib during stress test 2017 -no recurrence since -on good AVN louis regimen for PSVT prophylaxis--continue same -on Eliquis PSVT: -frequent episodes of very rapid SVT during prior hospital stays, whenever meds are interrupted -tolerating home metoprolol (100 bid) and diltiazem (30 bid) regimen long time, with good arrhythmia control--continue same HTN: -stable overall -same meds ESRD on HD: -dialysis per renal pulm fibrosis: -hospitalized here previously with unexplained interstitial lung dz picture, no specific dx made on bronch--treated empirically with steroids with good resolution; -per pmd h/o posterior circulation CVA: -on AC now (Aggrenox stopped), statin hyperthyroidism: -on methimazole, sees dr chiu for endo
[2019-03-18] MEDS: APIXABAN 5 MG TABLET PO SCH (16:44)
--- NOTE | 2019-03-18 20:17 | OP ---
DATE OF OPERATION: 03/18/2019 PREOPERATIVE DIAGNOSIS: Right hydronephrosis and right renal colic. POSTOPERATIVE DIAGNOSIS: Right hydronephrosis and right renal colic. PROCEDURE: Cystoscopy, right retrograde pyelogram, right ureteral stent placement. SURGEON: Elijah Gonzalez M.D. ANESTHESIA: General anesthesia. FINDINGS: Tortuous right ureter, hydronephrosis. DRAINS: A 6 x 24 Double J ureteral stent. ESTIMATED BLOOD LOSS: Minimal. PREOPERATIVE INDICATION: Ms. Correia is a 69-year-old female who is on dialysis who has some hematuria and right-sided flank pain. CT scan revealed previously unseen right-sided hydronephrosis with hydroureter to the mid ureter. No evidence of stones or anything seen to define the obstruction. Patient has a history of having a hysterectomy several years ago. DESCRIPTION OF PROCEDURE: The patient was brought to the OR, placed on the table in the supine position. Given general anesthesia and IV antibiotics and placed in the modified lithotomy position. Cystoscopy was performed after timeout was performed. The bladder itself appeared to be unremarkable. There was some hyperemia throughout, but no tumors or stones were seen. The right ureteral orifice was visualized. A wire was passed up into the right ureter. There was some difficulty at the mid portion of the ureter corresponding to the area on the CAT scan, and there was a medial deflection and a tortuosity of the ureter. The Sensor wire was used along with the open-end catheter, slowly passed the wire up which did and straightened out the ureter. The open-end catheter was passed into the kidney. A small amount of dilute contrast was injected into the kidney, which confirmed placement there. The wire was replaced, and a 6 x 24 Double J ureteral stent was placed over the wire, 1 loop in the renal pelvis and 1 loop in the bladder. The bladder was emptied. The patient was woken up. ELIJAH GONZALEZ M.D. [id number]
[2019-03-18] MEDS ORDERED: PT OWN MED DRAWER 7, Y5N ONE (21:24)
[2019-03-18] MEDS: ATORVASTATIN CA 40 MG TABLET (FP) PO SCH (21:32)
[2019-03-18] MEDS: guaiFENesin 200 MG/10 ML 10 ML UNIT-DOSE CUPS PO PRN (21:33)
[2019-03-18] MEDS ORDERED: BUDESONIDE/FORMETEROL FUMARATE 160/4.5 mcg INHALER IH SCH (22:00)
[2019-03-19] MEDS ORDERED: PT OWN MED DRAWER 7, Y5N ONE ×3 (01:19→11:39)
[2019-03-19] MEDS ORDERED: SODIUM CHLORIDE 250 ML IV PRN (07:37)
[2019-03-19] MEDS ORDERED: EPOETIN ALFA 2,000 UNIT/1 ML VIAL IVPUSH ONE (08:00)
[2019-03-19 09:08] LABS: BLOOD UREA NITROGEN 45.1 mg/dL (7-18); CREATININE 6.9 mg/dL (0.55-1.3); POTASSIUM 3.9 mmol/L (3.5-5.1)
[2019-03-19] MEDS ORDERED: cefTRIAXone SODIUM 1 GM VIAL ONE (09:19)
[2019-03-19] MEDS ORDERED: DEXTROSE 5%-WATER - 50 ML IVPB ONE (09:20)
[2019-03-19] MEDS: dilTIAZem HCL 30 MG TABLET (FP) PO SCH ×2 (10:00→21:39)
--- NOTE | 2019-03-19 10:27 | PN ---
Progress Note, Physician Chief Complaint: has some colicky pain when urinating, hematuria better - Current Medication List Current Medications: Active Medications Apixaban (Eliquis -) 5 mg PO BID [facility] Atorvastatin Calcium (Lipitor -) 40 mg PO HS [facility] Last Admin: 03/18/19 21:32 Dose: 40 mg Budesonide/Formoterol Fumarate (Symbicort 160/4.5mcg -) 2 puff IH BID [facility] Last Admin: 03/18/19 21:33 Dose: 2 puff Diltiazem HCl (Cardizem -) 30 mg PO BID [facility] Last Admin: 03/19/19 10:00 Dose: 30 mg Escitalopram Oxalate (Lexapro -) 5 mg PO DAILY [facility] Last Admin: 03/18/19 13:04 Dose: 5 mg Guaifenesin (Robitussin -) 10 ml PO Q6H PRN PRN Reason: COUGH Last Admin: 03/18/19 21:33 Dose: 10 ml Ceftriaxone Sodium 1 gm/ (Dextrose) 50 mls @ 100 mls/hr IVPB DAILY [facility] Last Admin: 03/18/19 14:09 Dose: 100 mls/hr Sodium Chloride (Normal Saline -) 1,000 mls @ 75 mls/hr IV ASDIR [facility] Last Admin: 03/18/19 13:07 Dose: 75 mls/hr Sodium Chloride (Normal Saline -) 250 mls @ 3,000 mls/hr IV PRN PRN PRN Reason: Hypotension during Dialysis Stop: 03/20/19 07:37 Lisinopril (Prinivil) 7.5 mg PO BID [facility] Last Admin: 03/18/19 21:30 Dose: 7.5 mg Methimazole (Tapazole -) 5 mg PO BID [facility] Last Admin: 03/18/19 21:32 Dose: 5 mg Metoprolol Succinate (Toprol Xl -) 100 mg PO BID [facility] Last Admin: 03/18/19 21:32 Dose: 100 mg Ondansetron HCl (Zofran Injection) 4 mg IVPUSH Q6H PRN PRN Reason: NAUSEA AND/OR VOMITING - Objective Vital Signs: Vital Signs Temperature 97.7 F 03/19/19 07:55 Pulse Rate 60 03/19/19 08:00 Respiratory Rate 18 03/19/19 08:00 Blood Pressure 147/82 03/19/19 08:00 O2 Sat by Pulse Oximetry (%) 100 03/18/19 21:00 Constitutional: Yes: No Distress Eyes: Yes: Conjunctiva Clear HENT: Yes: Atraumatic Neck: Yes: Supple Cardiovascular: Yes: Regular Rate and Rhythm Respiratory: Yes: CTA Bilaterally Gastrointestinal: Yes: Soft. No: Tenderness Genitourinary: Yes: Hematuria (better) Musculoskeletal: No: Joint Stiffness, Joint Swelling Extremities: No: Cold, Cool Edema: No Integumentary: No: Rash, Venous Stasis Changes Neurological: Yes: Alert, Oriented ...Motor Strength: WNL Psychiatric: Yes: Alert, Oriented. No: Agitated, Suicidal Ideation Labs: CBC, BMP 03/17/19 07:00 03/19/19 08:00 INR, PTT INR 1.84 (0.83-1.09) H 03/14/19 09:49 - ....Imaging Other: Report Reviewed Assessment/Plan The patient is a 69 year old female, with a significant PMH of ESRD on dialysis (//), diabetes mellitus, hypertension, atrial fibrillation on Eliquis, hyperthyroidism, HCV, who presents to the emergency department for LUQ abdominal pain, N/V; ASHD cardio f/u cough - iv ceftriaxone, pulm f.u Hydronephrosis and GI f/u s.p stent / ureteral, hematuria clearing up HD per renal falls dercubs pfx d/w pt and staff
--- NOTE | 2019-03-19 10:52 | PN ---
Progress Note (short form) - Note Progress Note: s: no cp sob palps dizzy TELE: sr Current Medications Generic Name Dose Route Start Last Admin Trade Name Freq PRN Reason Stop Dose Admin Apixaban 5 mg 03/18/19 22:00 Eliquis - PO BID EMELINA Atorvastatin Calcium 40 mg 03/18/19 22:00 03/18/19 21:32 Lipitor - PO 40 mg HS EMELIAN Administration Budesonide/Formoterol Fumarate 2 puff 03/18/19 13:00 03/18/19 21:33 Symbicort 160/4.5mcg - IH 2 puff BID EMELINA Administration Diltiazem HCl 30 mg 03/18/19 12:30 03/19/19 10:00 Cardizem - PO 30 mg BID EMELINA Administration Escitalopram Oxalate 5 mg 03/18/19 12:45 03/18/19 13:04 Lexapro - PO 5 mg DAILY EMELINA Administration Guaifenesin 10 ml 03/18/19 11:25 03/18/19 21:33 Robitussin - PO 10 ml Q6H PRN Administration COUGH Ceftriaxone Sodium 1 gm/ 50 mls @ 100 mls/hr 03/18/19 15:00 03/18/19 14:09 Dextrose IVPB 100 mls/hr DAILY EMELINA Administration Sodium Chloride 1,000 mls @ 75 mls/hr 03/18/19 12:00 03/18/19 13:07 Normal Saline - IV 75 mls/hr ASDIR EMEILNA Administration Lisinopril 7.5 mg 03/18/19 12:30 03/18/19 21:30 Prinivil PO 7.5 mg BID EMELINA Administration Methimazole 5 mg 03/18/19 12:45 03/18/19 21:32 Tapazole - PO 5 mg BID EMELINA Administration Metoprolol Succinate 100 mg 03/18/19 12:30 03/18/19 21:32 Toprol Xl - PO 100 mg BID EMELINA Administration Ondansetron HCl 4 mg 03/18/19 11:50 Zofran Injection IVPUSH Q6H PRN NAUSEA AND/OR VOMITING Vital Signs Period Temp Pulse Resp BP Sys/Chavarria Pulse Ox Last 24 Hr 97.7 F-98.3 F 55-120 16-20 97-172/57-85 100-100 Constitutional: Yes: Calm Cardiovascular: Yes: Regular Rate and Rhythm Respiratory: Yes: Other (rales bases 1/3 up b/l.) Gastrointestinal: Yes: Soft, Abdomen, Obese Edema: no Neurological: Yes: Alert, Oriented no jaundice diaphoresis Labs: CBC, BMP 03/17/19 07:00 03/19/19 08:00 Assessment/Plan ECG: sr, 1st avb, lat twis, no st changes, no sig change prior cxr: no sig chf [facility] 04/2018: 50-60% mid LAD with +FFR. EF 30% MPI 07/19 (marjan): no isch STs, pt in afib. mid-AW ischemia, distal IW ischemia. fixed apical defect. EF 30%, no TID Echo 02/19: mild LVE, EF 40-45% (HK of IW/IL). nl RV size, mild RV hypo. mod MR , central jet. no RVSP a/p: abd pain - CT abd/pelvis with R hydronephrosis and hydroureter - s/p ureter stenting, gu following cough with phlegm: - suspect URI/bronchitis - per PMD elevated trop: - trop indeterminate range, flat trend, EKG no ischemic changes, no angina-- this is sec to chronic HF/HD - recent cath with 1VD (mid LAD)--no sx's with med mgmt - no further w/u indicated at this time - no signs ACS, no ischemia-targeted therapies indicated (continuing home regimen) CAD: -2017 stress test with ischemia in RCA and also LAD distributions; subsequent cardiac cath with borderline mid LAD lesion, flow-limiting by FFR--medically managed (no sx's, clearly not causal in LV dysfunction) -she has been asymptomatic (walks with walker on street at baseline) -cont home med regimen: AC (no ASA), statin, bb chronic syst/diast CHF (mixed), moderate MR, mild pHTN: -nonischemic CMP with varying LVEF's over time, confounded by TDS echo images ( uncontrolled DM long time, ? HTN-krista component) -cath unremarkable--as above -EF improved on contrast echo as outpt (40-45%), and she has tolerated med titration--continue metoprolol 100 bid, lisinopril 7.5 bid -has been clinically euvolemic for long time, with volume status stable with HD mgmt parox AF: -pt incidentally noted to be in afib during stress test 2018 -no recurrence since -on good AVN louis regimen for PSVT prophylaxis--continue same -on Eliquis PSVT: -frequent episodes of very rapid SVT during prior hospital stays, whenever meds are interrupted -tolerating home metoprolol (100 bid) and diltiazem (30 bid) regimen long time, with good arrhythmia control--continue same HTN: -stable overall -same meds ESRD on HD: -dialysis per renal pulm fibrosis: -hospitalized here previously with unexplained interstitial lung dz picture, no specific dx made on bronch--treated empirically with steroids with good resolution; -per pmd h/o posterior circulation CVA: -on AC now (Aggrenox stopped), statin
[2019-03-19] MEDS: BUDESONIDE/FORMETEROL FUMARATE 160/4.5 mcg INHALER IH SCH ×2 (11:28→21:41)
[2019-03-19] MEDS: LISINOPRIL 5 MG TABLET (FP) PO SCH ×2 (11:30→21:39)
[2019-03-19] MEDS: ESCITALOPRAM OXALATE 10 MG TABLET PO SCH (11:31)
[2019-03-19] MEDS: guaiFENesin 200 MG/10 ML 10 ML UNIT-DOSE CUPS PO PRN (11:31)
[2019-03-19] MEDS: APIXABAN 5 MG TABLET PO SCH ×2 (11:31→21:39)
[2019-03-19] MEDS: METHIMAZOLE 5 MG TABLET (FP) PO SCH ×2 (11:32→21:40)
--- NOTE | 2019-03-19 11:58 | PN ---
Progress Note (short form) - Note Progress Note: PULMONARY Still with persistent nonproductive cough. No shortness of breath. Vital Signs Period Temp Pulse Resp BP Sys/Chavarria Pulse Ox Last 24 Hr 97.7 F-98.3 F 55-120 16-20 97-150/57-85 100-100 Gen: NAD at rest Heart: RRR Lung: decreased breath sounds at the bases Abd: soft, nontender Ext: no edema CBC, BMP 03/17/19 07:00 03/19/19 08:00 Active Medications Apixaban (Eliquis -) 5 mg PO BID [facility] Last Admin: 03/19/19 11:31 Dose: 5 mg Atorvastatin Calcium (Lipitor -) 40 mg PO HS [facility] Last Admin: 03/18/19 21:32 Dose: 40 mg Budesonide/Formoterol Fumarate (Symbicort 160/4.5mcg -) 2 puff IH BID [facility] Last Admin: 03/19/19 11:28 Dose: 2 puff Diltiazem HCl (Cardizem -) 30 mg PO BID [facility] Last Admin: 03/19/19 10:00 Dose: 30 mg Escitalopram Oxalate (Lexapro -) 5 mg PO DAILY [facility] Last Admin: 03/19/19 11:31 Dose: 5 mg Guaifenesin (Robitussin -) 10 ml PO Q6H PRN PRN Reason: COUGH Last Admin: 03/19/19 11:31 Dose: 10 ml Ceftriaxone Sodium 1 gm/ (Dextrose) 50 mls @ 100 mls/hr IVPB DAILY [facility] Last Admin: 03/18/19 14:09 Dose: 100 mls/hr Sodium Chloride (Normal Saline -) 1,000 mls @ 75 mls/hr IV ASDIR [facility] Last Admin: 03/18/19 13:07 Dose: 75 mls/hr Lisinopril (Prinivil) 7.5 mg PO BID [facility] Last Admin: 03/19/19 11:30 Dose: 7.5 mg Methimazole (Tapazole -) 5 mg PO BID [facility] Last Admin: 03/19/19 11:32 Dose: 5 mg Metoprolol Succinate (Toprol Xl -) 100 mg PO BID [facility] Last Admin: 03/19/19 11:31 Dose: 100 mg Ondansetron HCl (Zofran Injection) 4 mg IVPUSH Q6H PRN PRN Reason: NAUSEA AND/OR VOMITING A/P UTI R Hydronephrosis/Hydroureter LV Systolic Dysfunction Atrial Fibrillation CAD +Troponins likely Demand Ischemia ESRD on HD Atelectasis h/o ILD Hyperthyroidisdm h/o CVA DM Anemia - continue antibiotics - HD per renal - rate control - continue anticoagulation - continue Symbicort - inhaled bronchodilators - cough suppressant - outpt PFTs Problem List - Problems (1) Abdominal pain Code(s): R10.9 - UNSPECIFIED ABDOMINAL PAIN Qualifiers: Abdominal location: generalized Qualified Code(s): R10.84 - Generalized abdominal pain
[2019-03-19] MEDS: SODIUM CHLORIDE 1,000 ML IV SCH (12:29)
--- NOTE | 2019-03-19 13:33 | PN ---
Progress Note (short form) - Note Progress Note: Renal follow up for ESRD on HD Seen and examined at the bedside s/p dialysis this am, BP was marginal and HR was elevated during treatment total UF was 1L pt feels fine now has mild lower abdominal discomfort Vital Signs Temperature 98.2 F 03/19/19 11:00 Pulse Rate 97 H 03/19/19 11:10 Respiratory Rate 104 H 03/19/19 11:10 Blood Pressure 126/79 03/19/19 11:10 O2 Sat by Pulse Oximetry (%) 100 03/19/19 09:00 Intake & Output 03/16/19 03/17/19 03/18/19 03/19/19 23:59 23:59 23:59 23:59 Intake Total 1250 2350 2580 1100 Output Total 100 3180 100 1600 Balance 1150 -830 2480 -500 Weight 102.693 kg 101.605 kg 101.877 kg 103.147 kg NAD awake and alert neck supple RRR CTA soft NT/ND no LE edema slight CVA tenderness CBC, BMP 03/17/19 07:00 03/19/19 08:00 Current Medications Albuterol/Ipratropium (Duoneb -) 1 amp NEB RTID [facility] Apixaban (Eliquis -) 5 mg PO BID [facility] Last Admin: 03/19/19 11:31 Dose: 5 mg Atorvastatin Calcium (Lipitor -) 40 mg PO HS [facility] Last Admin: 03/18/19 21:32 Dose: 40 mg Budesonide/Formoterol Fumarate (Symbicort 160/4.5mcg -) 2 puff IH BID [facility] Last Admin: 03/19/19 11:28 Dose: 2 puff Diltiazem HCl (Cardizem -) 30 mg PO BID [facility] Last Admin: 03/19/19 10:00 Dose: 30 mg Escitalopram Oxalate (Lexapro -) 5 mg PO DAILY [facility] Last Admin: 03/19/19 11:31 Dose: 5 mg Guaifenesin/Codeine Phosphate (Robitussin Ac -) 10 ml PO Q8H PRN PRN Reason: COUGH Ceftriaxone Sodium 1 gm/ (Dextrose) 50 mls @ 100 mls/hr IVPB DAILY [facility] Last Admin: 03/18/19 14:09 Dose: 100 mls/hr Lisinopril (Prinivil) 7.5 mg PO BID [facility] Last Admin: 03/19/19 11:30 Dose: 7.5 mg Methimazole (Tapazole -) 5 mg PO BID [facility] Last Admin: 03/19/19 11:32 Dose: 5 mg Metoprolol Succinate (Toprol Xl -) 100 mg PO BID [facility] Last Admin: 03/19/19 11:31 Dose: 100 mg Ondansetron HCl (Zofran Injection) 4 mg IVPUSH Q6H PRN PRN Reason: NAUSEA AND/OR VOMITING 69 year old female, with a significant PMH of ESRD on dialysis (//), diabetes mellitus, hypertension, atrial fibrillation on Eliquis, hyperthyroidism , HCV, who presents to the emergency department for LUQ abdominal pain. 1. Right hydronephrosis and hydroureter 2. Abdominal pain 3. ESRD on HD 4. Hypertension 5. CKD related anemia Tolerated dialysis today. Renal Diet, 1.2L Fluid restriction. s/p cysto and stent placement per urology urine culture w/o growth continue present antihypertensives Trend H/H, REYNA if Hgb < 10 discharge planning as per primary team Thank you Jon Paz DO
[2019-03-19] MEDS: ALBUTEROL SO4 2.5/IPRATROPIUM 0.5 INH SOL 3 ML VIAL.NEB. NEB SCH ×2 (13:52→20:46)
--- NOTE | 2019-03-19 14:09 | PN ---
Progress Note (short form) - Note Progress Note: patient is reporting normal stent colic hematuria is clearing up follow up in office in 2-3 weeks, Problem List - Problems (1) Hydronephrosis Code(s): N13.30 - UNSPECIFIED HYDRONEPHROSIS (2) Hematuria Code(s): R31.9 - HEMATURIA, UNSPECIFIED
[2019-03-19] MEDS: CEFTRIAXONE 1 GM in DEXTROSE 5%-WATER - 50 ML IVPB SCH (16:41)
[2019-03-19] MEDS: ATORVASTATIN CA 40 MG TABLET (FP) PO SCH (21:39)
[2019-03-19] MEDS: guaiFENesin/CODEINE 10 ML UNIT-DOSE CUPS PO PRN (21:44)
--- NOTE | 2019-03-20 06:02 | PN ---
Progress Note, Physician Chief Complaint: in bed NAD VSS afebrile; hematuria clearing up; still has some discomfort when urinating but better for HD in am, if stable will DC home - Current Medication List Current Medications: Active Medications Albuterol/Ipratropium (Duoneb -) 1 amp NEB RTID [facility] Last Admin: 03/19/19 20:46 Dose: 1 amp Apixaban (Eliquis -) 5 mg PO BID [facility] Last Admin: 03/19/19 21:39 Dose: 5 mg Atorvastatin Calcium (Lipitor -) 40 mg PO HS [facility] Last Admin: 03/19/19 21:39 Dose: 40 mg Budesonide/Formoterol Fumarate (Symbicort 160/4.5mcg -) 2 puff IH BID [facility] Last Admin: 03/19/19 21:41 Dose: 2 puff Diltiazem HCl (Cardizem -) 30 mg PO BID [facility] Last Admin: 03/19/19 21:39 Dose: 30 mg Escitalopram Oxalate (Lexapro -) 5 mg PO DAILY [facility] Last Admin: 03/19/19 11:31 Dose: 5 mg Guaifenesin/Codeine Phosphate (Robitussin Ac -) 10 ml PO Q8H PRN PRN Reason: COUGH Last Admin: 03/19/19 21:44 Dose: 10 ml Ceftriaxone Sodium 1 gm/ (Dextrose) 50 mls @ 100 mls/hr IVPB DAILY [facility] Last Admin: 03/19/19 16:41 Dose: 100 mls/hr Lisinopril (Prinivil) 7.5 mg PO BID [facility] Last Admin: 03/19/19 21:39 Dose: 7.5 mg Methimazole (Tapazole -) 5 mg PO BID [facility] Last Admin: 03/19/19 21:40 Dose: 5 mg Metoprolol Succinate (Toprol Xl -) 100 mg PO BID [facility] Last Admin: 03/19/19 21:38 Dose: 100 mg Ondansetron HCl (Zofran Injection) 4 mg IVPUSH Q6H PRN PRN Reason: NAUSEA AND/OR VOMITING - Objective Vital Signs: Vital Signs Temperature 98.5 F 03/20/19 06:00 Pulse Rate 58 L 03/20/19 06:00 Respiratory Rate 18 03/20/19 06:00 Blood Pressure 126/61 03/20/19 06:00 O2 Sat by Pulse Oximetry (%) 100 03/19/19 20:48 Constitutional: Yes: No Distress, Calm Eyes: Yes: Conjunctiva Clear HENT: Yes: Atraumatic Neck: Yes: Supple Cardiovascular: Yes: Regular Rate and Rhythm Respiratory: Yes: CTA Bilaterally Gastrointestinal: Yes: Soft. No: Tenderness Genitourinary: No: Hematuria Musculoskeletal: No: Joint Stiffness, Joint Swelling Extremities: No: Cold, Cool, Cyanosis Peripheral Pulses WNL: No Integumentary: No: Rash, Venous Stasis Changes Neurological: Yes: Alert, Oriented ...Motor Strength: WNL Psychiatric: Yes: Alert, Oriented. No: Agitated, Suicidal Ideation Labs: CBC, BMP 03/17/19 07:00 03/19/19 08:00 INR, PTT INR 1.84 (0.83-1.09) H 03/14/19 09:49 - ....Imaging Other: Report Reviewed Assessment/Plan The patient is a 69 year old female, with a significant PMH of ESRD on dialysis (//), diabetes mellitus, hypertension, atrial fibrillation on Eliquis, hyperthyroidism, HCV, admitted with abdominal pain , + troponins and hydronephrosis ASHD cardio f/u cough - iv ceftriaxone, pulm f.u Hydronephrosis and GI f/u s.p stent / ureteral, hematuria clearing up HD per renal falls dercubs pfx d/w pt and staff
[2019-03-20 07:49] LABS: BASO % 1.1 % (0-2.0); HEMATOCRIT 30.5 % (32.4-45.2); HEMOGLOBIN 10.1 GM/dL (10.7-15.3); LYMPH % 18.6 % (8-40); MCH 26.9 pg (25.7-33.7); MCHC 33.1 g/dl (32.0-36.0); MEAN CELL VOLUME 81.1 fl (80-96); MEAN PLT VOLUME 9.5 fl (7.5-11.1); MONO % 11.5 % (3.8-10.2); NEUT % 66.8 % (42.8-82.8); PLATELET COUNT 246 K/MM3 (134-434); RBC 3.76 M/mm3 (3.60-5.2); RDW 17.1 % (11.6-15.6); WHITE BLOOD COUNT 10.1 K/mm3 (4.0-10.0)
[2019-03-20] MEDS: ALBUTEROL SO4 2.5/IPRATROPIUM 0.5 INH SOL 3 ML VIAL.NEB. NEB SCH ×3 (08:05→20:15)
--- NOTE | 2019-03-20 08:33 | PN ---
Progress Note (short form) - Note Progress Note: Breathing and cough improved with nebulized treatments. Less SOB. No CP. No acute events overnight. Intake & Output 03/17/19 03/18/19 03/19/19 03/20/19 23:59 23:59 23:59 23:59 Intake Total 2350 2580 2280 300 Output Total 3180 100 1801 Balance -830 2480 479 300 Weight 224 lb 224 lb 9.6 oz 227 lb 6.4 oz 227 lb 9.6 oz Last Vital Signs Temp Pulse Resp BP Pulse Ox 98.5 F 58 L 18 126/61 100 03/20/19 06:00 03/20/19 06:00 03/20/19 06:00 03/20/19 06:00 03/19/19 20:48 Active Medications Albuterol/Ipratropium (Duoneb -) 1 amp NEB RTID [facility] Last Admin: 03/20/19 08:05 Dose: 1 amp Apixaban (Eliquis -) 5 mg PO BID [facility] Last Admin: 03/19/19 21:39 Dose: 5 mg Atorvastatin Calcium (Lipitor -) 40 mg PO HS [facility] Last Admin: 03/19/19 21:39 Dose: 40 mg Budesonide/Formoterol Fumarate (Symbicort 160/4.5mcg -) 2 puff IH BID [facility] Last Admin: 03/19/19 21:41 Dose: 2 puff Diltiazem HCl (Cardizem -) 30 mg PO BID [facility] Last Admin: 03/19/19 21:39 Dose: 30 mg Escitalopram Oxalate (Lexapro -) 5 mg PO DAILY [facility] Last Admin: 03/19/19 11:31 Dose: 5 mg Guaifenesin/Codeine Phosphate (Robitussin Ac -) 10 ml PO Q8H PRN PRN Reason: COUGH Last Admin: 03/19/19 21:44 Dose: 10 ml Ceftriaxone Sodium 1 gm/ (Dextrose) 50 mls @ 100 mls/hr IVPB DAILY [facility] Last Admin: 03/19/19 16:41 Dose: 100 mls/hr Lisinopril (Prinivil) 7.5 mg PO BID [facility] Last Admin: 03/19/19 21:39 Dose: 7.5 mg Methimazole (Tapazole -) 5 mg PO BID [facility] Last Admin: 03/19/19 21:40 Dose: 5 mg Metoprolol Succinate (Toprol Xl -) 100 mg PO BID [facility] Last Admin: 03/19/19 21:38 Dose: 100 mg Ondansetron HCl (Zofran Injection) 4 mg IVPUSH Q6H PRN PRN Reason: NAUSEA AND/OR VOMITING Gen: NAD at rest Heart: RRR Lung: few scattered rhonchi, decreased breath sounds at the bases Abd: soft, nontender Ext: no edema Laboratory Results - last 24 hr 03/19/19 03/20/19 08:00 06:40 WBC 10.1 H RBC 3.76 Hgb 10.1 L Hct 30.5 L MCV 81.1 MCH 26.9 MCHC 33.1 RDW 17.1 H Plt Count 246 D MPV 9.5 Absolute Neuts (auto) 6.7 Neutrophils % 66.8 Lymphocytes % 18.6 Monocytes % 11.5 H Eosinophils % 2.0 Basophils % 1.1 Nucleated RBC % 0 Sodium 134 L Potassium 3.9 Chloride 98 Carbon Dioxide 26 Anion Gap 10 BUN 45.1 H Creatinine 6.9 H Est GFR (CKD-EPI)AfAm 6.44 Est GFR (CKD-EPI)NonAf 5.56 Random Glucose 121 H Calcium 8.0 L Problem List - Problems (1) Abdominal pain Code(s): R10.9 - UNSPECIFIED ABDOMINAL PAIN Qualifiers: Abdominal location: generalized Qualified Code(s): R10.84 - Generalized abdominal pain A/P UTI R Hydronephrosis/Hydroureter LV Systolic Dysfunction Atrial Fibrillation CAD +Troponins likely Demand Ischemia ESRD on HD Atelectasis h/o ILD Hyperthyroidisdm h/o CVA DM Anemia Suspected OSAS - ABX - HD per renal - rate control - continue anticoagulation - continue Symbicort - inhaled bronchodilators - cough suppressant - outpt PFTs - Sleep testing as an outpatient Dr Ang
[2019-03-20] MEDS ORDERED: DEXTROSE 5%-WATER - 50 ML IVPB ONE (08:53)
[2019-03-20] MEDS ORDERED: PT OWN MED DRAWER 7, Y5N ONE ×3 (08:53→21:35)
[2019-03-20] MEDS ORDERED: cefTRIAXone SODIUM 1 GM VIAL ONE (08:53)
[2019-03-20] MEDS: APIXABAN 5 MG TABLET PO SCH ×2 (09:13→21:36)
[2019-03-20] MEDS: dilTIAZem HCL 30 MG TABLET (FP) PO SCH ×2 (09:13→21:37)
[2019-03-20] MEDS: ESCITALOPRAM OXALATE 10 MG TABLET PO SCH (09:13)
[2019-03-20] MEDS: LISINOPRIL 5 MG TABLET (FP) PO SCH ×2 (09:14→21:37)
[2019-03-20] MEDS: METHIMAZOLE 5 MG TABLET (FP) PO SCH ×2 (09:16→21:38)
[2019-03-20] MEDS: CEFTRIAXONE 1 GM in DEXTROSE 5%-WATER - 50 ML IVPB SCH (09:16)
[2019-03-20] MEDS: BUDESONIDE/FORMETEROL FUMARATE 160/4.5 mcg INHALER IH SCH ×2 (09:19→21:37)
[2019-03-20] MEDS ORDERED: SODIUM CHLORIDE 250 ML IV PRN (12:50)
--- NOTE | 2019-03-20 12:50 | PN ---
Progress Note (short form) - Note Progress Note: Renal follow up for ESRD on HD Seen and examined at the bedside reports that abdominal pain and hematuria resolving no fevers, chills, sob, N/V s/p dialysis yesterday Vital Signs Temperature 98.2 F 03/20/19 09:34 Pulse Rate 62 03/20/19 09:34 Respiratory Rate 18 03/20/19 09:34 Blood Pressure 134/67 03/20/19 09:34 O2 Sat by Pulse Oximetry (%) 100 03/20/19 09:00 Intake & Output 03/17/19 03/18/19 03/19/19 03/20/19 23:59 23:59 23:59 23:59 Intake Total 2350 2580 2280 300 Output Total 3180 100 1801 Balance -830 2480 479 300 Weight 101.605 kg 101.877 kg 103.147 kg 103.238 kg NAD awake and alert neck supple RRR CTA soft NT/ND no LE edema slight CVA tenderness CBC, BMP 03/20/19 06:40 03/19/19 08:00 Current Medications Albuterol/Ipratropium (Duoneb -) 1 amp NEB RTID [facility] Last Admin: 03/20/19 08:05 Dose: 1 amp Apixaban (Eliquis -) 5 mg PO BID [facility] Last Admin: 03/20/19 09:13 Dose: 5 mg Atorvastatin Calcium (Lipitor -) 40 mg PO HS [facility] Last Admin: 03/19/19 21:39 Dose: 40 mg Budesonide/Formoterol Fumarate (Symbicort 160/4.5mcg -) 2 puff IH BID [facility] Last Admin: 03/20/19 09:19 Dose: 2 puff Diltiazem HCl (Cardizem -) 30 mg PO BID [facility] Last Admin: 03/20/19 09:13 Dose: 30 mg Escitalopram Oxalate (Lexapro -) 5 mg PO DAILY [facility] Last Admin: 03/20/19 09:13 Dose: 5 mg Guaifenesin/Codeine Phosphate (Robitussin Ac -) 10 ml PO Q8H PRN PRN Reason: COUGH Last Admin: 03/19/19 21:44 Dose: 10 ml Ceftriaxone Sodium 1 gm/ (Dextrose) 50 mls @ 100 mls/hr IVPB DAILY [facility] Last Admin: 03/20/19 09:16 Dose: 100 mls/hr Lisinopril (Prinivil) 7.5 mg PO BID [facility] Last Admin: 03/20/19 09:14 Dose: 7.5 mg Methimazole (Tapazole -) 5 mg PO BID [facility] Last Admin: 03/20/19 09:16 Dose: 5 mg Metoprolol Succinate (Toprol Xl -) 100 mg PO BID [facility] Last Admin: 03/20/19 09:15 Dose: 100 mg Ondansetron HCl (Zofran Injection) 4 mg IVPUSH Q6H PRN PRN Reason: NAUSEA AND/OR VOMITING 69 year old female, with a significant PMH of ESRD on dialysis (//), diabetes mellitus, hypertension, atrial fibrillation on Eliquis, hyperthyroidism , HCV, who presents to the emergency department for LUQ abdominal pain. 1. Right hydronephrosis and hydroureter 2. Abdominal pain 3. ESRD on HD 4. Hypertension 5. CKD related anemia No acute need for dialysis today. Will plan for dialysis tomorrow in AM prior to discharge Renal Diet, 1.2L Fluid restriction. s/p cysto and stent placement per urology urine culture w/o growth continue present antihypertensives Trend H/H, REYNA if Hgb < 10 anticipated discharge tomorrow after dialysis Thank you Jon Paz DO
--- NOTE | 2019-03-20 15:12 | PN ---
Progress Note (short form) - Note Progress Note: s: no cp sob palps dizzy TELE: sr Current Medications Generic Name Dose Route Start Last Admin Trade Name Freq PRN Reason Stop Dose Admin Albuterol/Ipratropium 1 amp 03/19/19 14:00 03/20/19 14:47 Duoneb - NEB 1 amp RTID [facility] Administration Apixaban 5 mg 03/18/19 22:00 03/20/19 09:13 Eliquis - PO 5 mg BID [facility] Administration Atorvastatin Calcium 40 mg 03/18/19 22:00 03/19/19 21:39 Lipitor - PO 40 mg HS [facility] Administration Budesonide/Formoterol Fumarate 2 puff 03/18/19 13:00 03/20/19 09:19 Symbicort 160/4.5mcg - IH 2 puff BID [facility] Administration Diltiazem HCl 30 mg 03/18/19 12:30 03/20/19 09:13 Cardizem - PO 30 mg BID [facility] Administration Escitalopram Oxalate 5 mg 03/18/19 12:45 03/20/19 09:13 Lexapro - PO 5 mg DAILY [facility] Administration Guaifenesin/Codeine Phosphate 10 ml 03/19/19 11:58 03/19/19 21:44 Robitussin Ac - PO 10 ml Q8H PRN Administration COUGH Ceftriaxone Sodium 1 gm/ 50 mls @ 100 mls/hr 03/18/19 15:00 03/20/19 09:16 Dextrose IVPB 100 mls/hr DAILY [facility] Administration Sodium Chloride 250 mls @ 3,000 mls/hr 03/20/19 12:50 Normal Saline - IV 03/21/19 12:50 PRN PRN Hypotension during Dialysis Lisinopril 7.5 mg 03/18/19 12:30 03/20/19 09:14 Prinivil PO 7.5 mg BID [facility] Administration Methimazole 5 mg 03/18/19 12:45 03/20/19 09:16 Tapazole - PO 5 mg BID [facility] Administration Metoprolol Succinate 100 mg 03/18/19 12:30 03/20/19 09:15 Toprol Xl - PO 100 mg BID [facility] Administration Ondansetron HCl 4 mg 03/18/19 11:50 Zofran Injection IVPUSH Q6H PRN NAUSEA AND/OR VOMITING Vital Signs Period Temp Pulse Resp BP Sys/Chavarria Pulse Ox Last 24 Hr 98.2 F-98.8 F 58-87 18-18 123-140/61-67 100-100 Constitutional: Yes: Calm Cardiovascular: Yes: Regular Rate and Rhythm Respiratory: Yes: cta bl nl eff Gastrointestinal: Yes: Soft, Abdomen, Obese Edema: no Neurological: Yes: Alert, Oriented no jaundice diaphoresis Labs: CBC, BMP 03/20/19 06:40 03/19/19 08:00 Assessment/Plan ECG: sr, 1st avb, lat twis, no st changes, no sig change prior cxr: no sig chf [facility] 04/2018: 50-60% mid LAD with +FFR. EF 30% MPI 07/19 (marjan): no isch STs, pt in afib. mid-AW ischemia, distal IW ischemia. fixed apical defect. EF 30%, no TID Echo 02/19: mild LVE, EF 40-45% (HK of IW/IL). nl RV size, mild RV hypo. mod MR , central jet. no RVSP a/p: abd pain - CT abd/pelvis with R hydronephrosis and hydroureter - s/p ureter stenting, gu following elevated trop: - trop indeterminate range, flat trend, EKG no ischemic changes, no angina-- this is sec to chronic HF/HD - recent cath with 1VD (mid LAD)--no sx's with med mgmt - no further w/u indicated at this time - no signs ACS, no ischemia-targeted therapies indicated (continuing home regimen) CAD: -2017 stress test with ischemia in RCA and also LAD distributions; subsequent cardiac cath with borderline mid LAD lesion, flow-limiting by FFR--medically managed (no sx's, clearly not causal in LV dysfunction) -she has been asymptomatic (walks with walker on street at baseline) -cont home med regimen: AC (no ASA), statin, bb chronic syst/diast CHF (mixed), moderate MR, mild pHTN: -nonischemic CMP with varying LVEF's over time, confounded by TDS echo images ( uncontrolled DM long time, ? HTN-krista component) -cath unremarkable--as above -EF improved on contrast echo as outpt (40-45%), and she has tolerated med titration--continue metoprolol 100 bid, lisinopril 7.5 bid -has been clinically euvolemic for long time, with volume status stable with HD mgmt parox AF: -pt incidentally noted to be in afib during stress test 2018 -no recurrence since -on good AVN louis regimen for PSVT prophylaxis--continue same -on Eliquis PSVT: -frequent episodes of very rapid SVT during prior hospital stays, whenever meds are interrupted -tolerating home metoprolol (100 bid) and diltiazem (30 bid) regimen long time, with good arrhythmia control--continue same HTN: -stable overall -same meds ESRD on HD: -dialysis per renal pulm fibrosis: -hospitalized here previously with unexplained interstitial lung dz picture, no specific dx made on bronch--treated empirically with steroids with good resolution; -per pmd h/o posterior circulation CVA: -on AC now (Aggrenox stopped), statin
[2019-03-20] MEDS: ATORVASTATIN CA 40 MG TABLET (FP) PO SCH (21:37)
[2019-03-20] MEDS: guaiFENesin/CODEINE 10 ML UNIT-DOSE CUPS PO PRN (21:38)
[2019-03-21] MEDS: ALBUTEROL SO4 2.5/IPRATROPIUM 0.5 INH SOL 3 ML VIAL.NEB. NEB SCH ×2 (08:13→14:10)
[2019-03-21 09:21] LABS: ALBUMIN 2.9 g/dl (3.4-5.0); BILIRUBIN,TOTAL 0.3 mg/dL (0.2-1); BLOOD UREA NITROGEN 46.4 mg/dL (7-18); CALCIUM 7.3 mg/dL (8.5-10.1); CREATININE 6.4 mg/dL (0.55-1.3); POTASSIUM 3.5 mmol/L (3.5-5.1); TOT PROT 6.7 g/dl (6.4-8.2)
[2019-03-21] MEDS ORDERED: cefTRIAXone SODIUM 1 GM VIAL ONE (10:56)
[2019-03-21] MEDS ORDERED: DEXTROSE 5%-WATER - 50 ML IVPB ONE (10:56)
[2019-03-21] MEDS: ESCITALOPRAM OXALATE 10 MG TABLET PO SCH (11:00)
[2019-03-21] MEDS: LISINOPRIL 5 MG TABLET (FP) PO SCH (11:02)
[2019-03-21] MEDS: APIXABAN 5 MG TABLET PO SCH (11:03)
[2019-03-21] MEDS: dilTIAZem HCL 30 MG TABLET (FP) PO SCH (11:03)
[2019-03-21] MEDS: CEFTRIAXONE 1 GM in DEXTROSE 5%-WATER - 50 ML IVPB SCH (11:03)
[2019-03-21] MEDS: BUDESONIDE/FORMETEROL FUMARATE 160/4.5 mcg INHALER IH SCH (11:04)
[2019-03-21] MEDS: METHIMAZOLE 5 MG TABLET (FP) PO SCH (11:04)
[2019-03-21 11:07] VITALS: BP 100/64; PULSE 124; TEMP 98
--- NOTE | 2019-03-21 11:41 | PN ---
Progress Note (short form) - Note Progress Note: s: no cp sob palps dizzy TELE: sr Current Medications Generic Name Dose Route Start Last Admin Trade Name Freq PRN Reason Stop Dose Admin Albuterol/Ipratropium 1 amp 03/19/19 14:00 03/21/19 08:13 Duoneb - NEB 1 amp RTID [facility] Administration Apixaban 5 mg 03/18/19 22:00 03/21/19 11:03 Eliquis - PO 5 mg BID [facility] Administration Atorvastatin Calcium 40 mg 03/18/19 22:00 03/20/19 21:37 Lipitor - PO 40 mg HS [facility] Administration Budesonide/Formoterol Fumarate 2 puff 03/18/19 13:00 03/21/19 11:04 Symbicort 160/4.5mcg - IH 2 puff BID [facility] Administration Diltiazem HCl 30 mg 03/18/19 12:30 03/21/19 11:03 Cardizem - PO 30 mg BID [facility] Administration Escitalopram Oxalate 5 mg 03/18/19 12:45 03/21/19 11:00 Lexapro - PO 5 mg DAILY [facility] Administration Guaifenesin/Codeine Phosphate 10 ml 03/19/19 11:58 03/20/19 21:38 Robitussin Ac - PO 10 ml Q8H PRN Administration COUGH Ceftriaxone Sodium 1 gm/ 50 mls @ 100 mls/hr 03/18/19 15:00 03/21/19 11:03 Dextrose IVPB 100 mls/hr DAILY [facility] Administration Sodium Chloride 250 mls @ 3,000 mls/hr 03/20/19 12:50 Normal Saline - IV 03/21/19 12:50 PRN PRN Hypotension during Dialysis Lisinopril 7.5 mg 03/18/19 12:30 03/21/19 11:02 Prinivil PO 7.5 mg BID [facility] Administration Methimazole 5 mg 03/18/19 12:45 03/21/19 11:04 Tapazole - PO 5 mg BID [facility] Administration Metoprolol Succinate 100 mg 03/18/19 12:30 03/21/19 11:02 Toprol Xl - PO 100 mg BID [facility] Administration Ondansetron HCl 4 mg 03/18/19 11:50 Zofran Injection IVPUSH Q6H PRN NAUSEA AND/OR VOMITING Vital Signs Period Temp Pulse Resp BP Sys/Chavarria Pulse Ox Last 24 Hr 97.8 F-98.5 F 53-126 16-20 100-160/59-100 100 Constitutional: Yes: Calm Cardiovascular: Yes: Regular Rate and Rhythm Respiratory: Yes: cta bl nl eff Gastrointestinal: Yes: Soft, Abdomen, Obese Edema: no Neurological: Yes: Alert, Oriented no jaundice diaphoresis Labs: CBC, BMP 03/20/19 06:40 03/21/19 07:00 Assessment/Plan ECG: sr, 1st avb, lat twis, no st changes, no sig change prior cxr: no sig chf [facility] 04/2018: 50-60% mid LAD with +FFR. EF 30% MPI 07/19 (marjan): no isch STs, pt in afib. mid-AW ischemia, distal IW ischemia. fixed apical defect. EF 30%, no TID Echo 02/19: mild LVE, EF 40-45% (HK of IW/IL). nl RV size, mild RV hypo. mod MR , central jet. no RVSP a/p: abd pain - CT abd/pelvis with R hydronephrosis and hydroureter - s/p ureter stenting, gu following elevated trop: - trop indeterminate range, flat trend, EKG no ischemic changes, no angina-- this is sec to chronic HF/HD - recent cath with 1VD (mid LAD)--no sx's with med mgmt - no further w/u indicated at this time - no signs ACS, no ischemia-targeted therapies indicated (continuing home regimen) CAD: -2017 stress test with ischemia in RCA and also LAD distributions; subsequent cardiac cath with borderline mid LAD lesion, flow-limiting by FFR--medically managed (no sx's, clearly not causal in LV dysfunction) -she has been asymptomatic (walks with walker on street at baseline) -cont home med regimen: AC (no ASA), statin, bb chronic syst/diast CHF (mixed), moderate MR, mild pHTN: -nonischemic CMP with varying LVEF's over time, confounded by TDS echo images ( uncontrolled DM long time, ? HTN-krista component) -cath unremarkable--as above -EF improved on contrast echo as outpt (40-45%), and she has tolerated med titration--continue metoprolol 100 bid, lisinopril 7.5 bid -has been clinically euvolemic for long time, with volume status stable with HD mgmt parox AF: -pt incidentally noted to be in afib during stress test 2018 -no recurrence since -on good AVN louis regimen for PSVT prophylaxis--continue same -on Eliquis PSVT: -frequent episodes of very rapid SVT during prior hospital stays, whenever meds are interrupted -tolerating home metoprolol (100 bid) and diltiazem (30 bid) regimen long time, with good arrhythmia control--continue same HTN: -stable overall -same meds ESRD on HD: -dialysis per renal pulm fibrosis: -hospitalized here previously with unexplained interstitial lung dz picture, no specific dx made on bronch--treated empirically with steroids with good resolution; -per pmd h/o posterior circulation CVA: -on AC now (Aggrenox stopped), statin
--- NOTE | 2019-03-21 12:27 | DS ---
Physical Examination Vital Signs: Vital Signs Temperature 98.0 F 03/21/19 11:06 Pulse Rate 124 H 03/21/19 11:06 Respiratory Rate 16 03/21/19 11:06 Blood Pressure 100/64 03/21/19 11:06 O2 Sat by Pulse Oximetry (%) 100 03/21/19 10:00 Findings/Remarks: s/p HD feels well ready to go home, f/u needed and meds d/w pt Constitutional: Yes: No Distress Eyes: Yes: Conjunctiva Clear HENT: Yes: Atraumatic Neck: Yes: Supple Cardiovascular: Yes: Regular Rate and Rhythm Respiratory: Yes: CTA Bilaterally Gastrointestinal: Yes: Soft. No: Tenderness Renal/: No: Hematuria Musculoskeletal: No: Joint Stiffness Extremities: No: Calf Tenderness, Cold, Cool, Cyanosis Edema: No Integumentary: No: Rash, Venous Stasis Changes Neurological: Yes: Alert, Oriented ...Motor Strength: WNL Psychiatric: Yes: Alert, Oriented. No: Agitated Labs: CBC, BMP 03/20/19 06:40 03/21/19 07:00 Discharge Summary Problems reviewed: Yes Reason For Visit: MISSED DIALYSIS Current Active Problems Abdominal pain (Acute) ESRD (end stage renal disease) (Acute) Hematuria (Acute) Hepatitis C (Acute) Hydronephrosis (Acute) Missed dialysis (Acute) Procedures: Principal: 69 YOF HTN ESRD/HD DM Other Procedures: admitted with abdominal pain hydronephrosis, seen by stent placed Hospital Course: seen by cardiology, pulmonary, and GI; had stent placed for hydronephrosis, improved; DC home and f/u as advised. Condition: Improved - Instructions Diet, Activity, Other Instructions: f.u PCP, GI, and cardiology in 1-2 weeks; RTER if worse or recurrent c/o; take meds as prescribed; HD pee renal; remove urinary stent per in 1-2 weeks Referrals: Rebecca Villarreal [Primary Care Provider] - Ruddy Green MD., [Staff Physician] - Garfield Arriaza MD [Staff Physician] - Tom Morley MD [Staff Physician] - Jon Paz MD [Staff Physician] - Disposition: VNS/HOME HEALTH CARE - Home Medications Comprehensive Discharge Medication List: Ambulatory Orders Diltiazem [Cardizem -] 60 mg PO BID 07/10/16 Escitalopram Oxalate [Lexapro -] 5 mg PO DAILY 07/10/16 Apixaban [Eliquis] 5 mg PO BID 11/18/17 Methimazole [Tapazole] 5 mg PO BID 11/18/17 Atorvastatin Ca [Lipitor] 40 mg PO DAILY 03/14/19 Furosemide 80 mg PO DAILY 03/14/19 Lisinopril 5 mg PO BID 03/14/19 Metoprolol Tartrate 100 mg PO BID 03/14/19 Albuterol 2.5/Ipratropium 0.5 [Duoneb -] 1 amp NEB RTID amp 03/21/19 Budesonide/Formeterol Fumarate [SYMBICORT 160/4.5mcg -] 2 puff IH BID inhaler 03/21/19 Cefuroxime Axetil [Ceftin -] 500 mg PO Q12H #10 tablet 03/21/19
--- NOTE | 2019-03-21 13:46 | PN ---
Progress Note (short form) - Note Progress Note: PULMONARY Cough improved. No shortness of breath. Vital Signs Period Temp Pulse Resp BP Sys/Chavarria Pulse Ox Last 24 Hr 97.8 F-98.5 F 53-126 16-20 100-160/59-100 100-100 Gen: NAD at rest Heart: RRR Lung: decreased breath sounds at the bases Abd: soft, nontender Ext: no edema CBC, BMP 03/20/19 06:40 03/21/19 07:00 Active Medications Albuterol/Ipratropium (Duoneb -) 1 amp NEB RTID [facility] Last Admin: 03/21/19 08:13 Dose: 1 amp Apixaban (Eliquis -) 5 mg PO BID [facility] Last Admin: 03/21/19 11:03 Dose: 5 mg Atorvastatin Calcium (Lipitor -) 40 mg PO HS [facility] Last Admin: 03/20/19 21:37 Dose: 40 mg Budesonide/Formoterol Fumarate (Symbicort 160/4.5mcg -) 2 puff IH BID [facility] Last Admin: 03/21/19 11:04 Dose: 2 puff Diltiazem HCl (Cardizem -) 30 mg PO BID [facility] Last Admin: 03/21/19 11:03 Dose: 30 mg Escitalopram Oxalate (Lexapro -) 5 mg PO DAILY [facility] Last Admin: 03/21/19 11:00 Dose: 5 mg Guaifenesin/Codeine Phosphate (Robitussin Ac -) 10 ml PO Q8H PRN PRN Reason: COUGH Last Admin: 03/20/19 21:38 Dose: 10 ml Ceftriaxone Sodium 1 gm/ (Dextrose) 50 mls @ 100 mls/hr IVPB DAILY [facility] Last Admin: 03/21/19 11:03 Dose: 100 mls/hr Sodium Chloride (Normal Saline -) 250 mls @ 3,000 mls/hr IV PRN PRN PRN Reason: Hypotension during Dialysis Stop: 03/21/19 12:50 Lisinopril (Prinivil) 7.5 mg PO BID [facility] Last Admin: 03/21/19 11:02 Dose: 7.5 mg Methimazole (Tapazole -) 5 mg PO BID [facility] Last Admin: 03/21/19 11:04 Dose: 5 mg Metoprolol Succinate (Toprol Xl -) 100 mg PO BID [facility] Last Admin: 03/21/19 11:02 Dose: 100 mg Ondansetron HCl (Zofran Injection) 4 mg IVPUSH Q6H PRN PRN Reason: NAUSEA AND/OR VOMITING A/P UTI R Hydronephrosis/Hydroureter LV Systolic Dysfunction Atrial Fibrillation CAD +Troponins likely Demand Ischemia ESRD on HD Atelectasis h/o ILD Hyperthyroidisdm h/o CVA DM Anemia - continue antibiotics - HD per renal - rate control - continue anticoagulation - continue Symbicort - inhaled bronchodilators - cough suppressant - outpt PFTs Problem List - Problems (1) Abdominal pain Code(s): R10.9 - UNSPECIFIED ABDOMINAL PAIN Qualifiers: Abdominal location: generalized Qualified Code(s): R10.84 - Generalized abdominal pain
--- NOTE | 2019-03-21 14:22 | PN ---
Progress Note (short form) - Note Progress Note: s/p hemodialysis treatment was uneventful Current Medications Albuterol/Ipratropium (Duoneb -) 1 amp NEB RTID [facility] Last Admin: 03/21/19 14:10 Dose: Not Given Apixaban (Eliquis -) 5 mg PO BID [facility] Last Admin: 03/21/19 11:03 Dose: 5 mg Atorvastatin Calcium (Lipitor -) 40 mg PO HS [facility] Last Admin: 03/20/19 21:37 Dose: 40 mg Budesonide/Formoterol Fumarate (Symbicort 160/4.5mcg -) 2 puff IH BID [facility] Last Admin: 03/21/19 11:04 Dose: 2 puff Diltiazem HCl (Cardizem -) 30 mg PO BID [facility] Last Admin: 03/21/19 11:03 Dose: 30 mg Escitalopram Oxalate (Lexapro -) 5 mg PO DAILY [facility] Last Admin: 03/21/19 11:00 Dose: 5 mg Guaifenesin/Codeine Phosphate (Robitussin Ac -) 10 ml PO Q8H PRN PRN Reason: COUGH Last Admin: 03/20/19 21:38 Dose: 10 ml Ceftriaxone Sodium 1 gm/ (Dextrose) 50 mls @ 100 mls/hr IVPB DAILY [facility] Last Admin: 03/21/19 11:03 Dose: 100 mls/hr Sodium Chloride (Normal Saline -) 250 mls @ 3,000 mls/hr IV PRN PRN PRN Reason: Hypotension during Dialysis Stop: 03/21/19 12:50 Lisinopril (Prinivil) 7.5 mg PO BID [facility] Last Admin: 03/21/19 11:02 Dose: 7.5 mg Methimazole (Tapazole -) 5 mg PO BID [facility] Last Admin: 03/21/19 11:04 Dose: 5 mg Metoprolol Succinate (Toprol Xl -) 100 mg PO BID [facility] Last Admin: 03/21/19 11:02 Dose: 100 mg Ondansetron HCl (Zofran Injection) 4 mg IVPUSH Q6H PRN PRN Reason: NAUSEA AND/OR VOMITING Last Vital Signs Temp Pulse Resp BP Pulse Ox 98.0 F 124 H 16 100/64 100 03/21/19 11:06 03/21/19 11:06 03/21/19 11:06 03/21/19 11:06 03/21/19 10:00 CBC, BMP 03/20/19 06:40 03/21/19 07:00
== END 2019-03-21 14:35 | disposition home health service (06) | DRG 660 ==
LOC: JER 08:32 → JERBED 12:56 → J4S 18:25
PROVIDERS: ADMIT Internal Medicine; ATTEND Internal Medicine
PROC: BT1DZZZ Fluoroscopy of Right Kidney, Ureter and Bladder (ICD-10-PCS; 2019-03-18)
PROC: 0T768DZ Dilation of Right Ureter with Intraluminal Device, Via Natural or Artificial Opening Endoscopic (ICD-10-PCS; principal; 2019-03-18 10:25)
PROC: 0TJB8ZZ Inspection of Bladder, Via Natural or Artificial Opening Endoscopic (ICD-10-PCS; 2019-03-18 10:25)
DX: N13.6 Pyonephrosis (principal); I50.42 Chronic combined systolic (congestive) and diastolic (congestive) heart failure; N13.8 Other obstructive and reflux uropathy; I13.2 Hypertensive heart and chronic kidney disease with heart failure and with stage 5 chronic kidney disease, or end stage renal disease; I69.354 Hemiplegia and hemiparesis following cerebral infarction affecting left non-dominant side; I24.8 Other forms of acute ischemic heart disease; J98.11 Atelectasis; N18.6 End stage renal disease; N13.1 Hydronephrosis with ureteral stricture, not elsewhere classified; E05.90 Thyrotoxicosis, unspecified without thyrotoxic crisis or storm; I44.0 Atrioventricular block, first degree; E11.22 Type 2 diabetes mellitus with diabetic chronic kidney disease; Z99.2 Dependence on renal dialysis; K59.09 Other constipation; K21.9 Gastro-esophageal reflux disease without esophagitis; R10.12 Left upper quadrant pain; J84.10 Pulmonary fibrosis, unspecified; I48.0 Paroxysmal atrial fibrillation; I25.10 Atherosclerotic heart disease of native coronary artery without angina pectoris; R31.9 Hematuria, unspecified; E11.319 Type 2 diabetes mellitus with unspecified diabetic retinopathy without macular edema; G47.33 Obstructive sleep apnea (adult) (pediatric); E11.40 Type 2 diabetes mellitus with diabetic neuropathy, unspecified; I27.20 Pulmonary hypertension, unspecified; I47.9 Paroxysmal tachycardia, unspecified; I34.0 Nonrheumatic mitral (valve) insufficiency; D63.8 Anemia in other chronic diseases classified elsewhere; B19.20 Unspecified viral hepatitis C without hepatic coma; N23 Unspecified renal colic; E66.9 Obesity, unspecified; Z68.36 Body mass index [BMI] 36.0-36.9, adult
CPT/HCPCS: 36415; 71045-TC-FY; 71250-TC; 74177-TC; 76000-TC-FY; 80048; 80053; 81003; 82550; 82553; 83690; 83735; 84100; 84484; 85025; 85027; 85610; 85730; 86803; 87086; 87340; 93005; 93010; 94640; 94760; 99282-25; J0131; J0885; J7030; Q9967

== ENCOUNTER 2019-05-05 08:34 | Observation (INO) | payer OTHER ==
--- NOTE | 2019-05-05 08:57 | PDOC ---
*Physical Exam - Vital Signs Last Vital Signs Temp Pulse Resp BP Pulse Ox 98.5 F 124 H 20 95/69 100 05/05/19 08:40 05/05/19 08:40 05/05/19 08:40 05/05/19 08:40 05/05/19 08:40 Medical Decision Making - Medical Decision Making 05/05/19 08:52 Patient seen and evaluated as pre-attending with Dr. Carcamo (PGY-2) and Dr. Moe (Attending) 69 y/o female with a PMHx of ESRD on HD (//), AFib (on --) here from HD because of palpitations and tachycardia one hour into her HD session this morning. No chest pain, no shortness of breath. As per EMS patient sinus tach en route to ED. Discharge - Follow up/Referral Referrals: Rebecca Villarreal [Primary Care Provider] - - Patient Discharge Instructions - Post Discharge Activity
--- NOTE | 2019-05-05 09:02 | PDOC ---
History of Present Illness - General Chief Complaint: Palpitations Stated Complaint: TACHYCARDIA Time Seen by Provider: 05/05/19 08:41 History Source: Patient, Family (Daughter at bedside), Old Records Exam Limitations: No Limitations - History of Present Illness Initial Comments: HPI: 69 y/o female presenting to [facility] ER via EMS from dialysis center complaining of two self limited episodes of palpitations each lasting approx. 5 minutes. Occurred approx. 1 hour into her regularly scheduled hemodialysis. EMS provided two rhythm strips which demonstrated an initial accelerated junction rhythm at approx. 100 BPM that transitioned to a sinus rhythm. Pt denies associated SOB, chest pain, arm pain, back pain, or neck pain. Denies recent illness, flushing, diarrhea. Medical Hx: - ESRD on dialysis (T/R/S, last Today) - DM - HTN - A-fib on eliquis (last echo 07/19 showing LVEF 45%) - Hyperthyroid - HCV - Moderate Pulmonary HTN Review of Systems: In addition to that documented in the HPI above, the additional ROS was obtained : Constitutional- Denies fevers or chills Head- Denies vision changes ENMT- Denies sore throat CV- Denies chest pain Resp- Denies SOB GI- Denies abd pain, vomiting, or diarrhea - Denies painful urination MSK- Denies recent trauma Skin- Denies new rashes Neuro- Denies new numbness or tingling or weakness Endocrine- Denies polyuria Heme- Denies bleeding or bruising Physical Examination: Vital signs and nursing notes reviewed. Constitutional- Obese adult female in no acute distress or obvious discomfort. Found semi-fowlers on hospital bed. Answered all questions appropriately and completely. Head- Normocephalic. No obvious external signs of trauma. Neck- Supple, trachea is midline. Cardiovascular / Chest- Regular rate and regular rhythm. No murmur, rubs, clicks , or gallops. Peripheral pulses- radial pulses full. Trace pretibial edema bilaterally. Dialysis access in left arm. Respiratory- Breathing unlabored. Equal chest rise and fall. Clear to auscultation bilaterally. No stridor, no wheezing, no rhonchi. Gastrointestinal- abdomen is soft, non-tender, non-distended. Limited exam secondary to large panus. Neuro- Alert and oriented x4. Moving all four extremities spontaneously. No facial asymmetry. No slurred speech. Skin- Warm, dry, and intact. Psych- Affect- appropriate. Mood- normal. Speech was non-labored, non- pressured. MDM: 69 y/o female presenting with two, brief episodes of palpitations during dialysis. Noted rhythm change on EMS rhythm strip. No complaints at time of arrival. Afebrile. Vitals unremarkable for hypotension or tachycardia. Physical exam as described above. Suspect symptoms are related to dialysis. Low suspicion for ACS, significant electrolyte derangement, infectious etiology, hyperthyroidism, or medication/dialysis nonadherence. EKG unremarkable for ischemic changes. Sinus rhythm with first degree AV block. Unchanged when compared to last on file. QRS within normal limits. No peaked T Waves. Case discussed with Dr. Paz. Will evaluate the pt if admitted to the hospital. Suggested holding further dialysis today given the symptoms. Reviewed laboratory data. Noted mildly elevated troponin, which is at documented baseline in [employer]. Cr also elevated. No hyperkalemia or significant anemia. ED Attending discussed case with Dr. Villarreal. Will place the pt on observation for palpitations / arrhythmia associated with dialysis. Michael Carcamo M.D., PGY2 Emergency Medicine Resident Past History - Past Medical History Allergies/Adverse Reactions: Allergies Allergy/AdvReac Type Severity Reaction Status Date / Time mushroom Allergy Severe Rash Verified 03/14/19 08:53 nut - unspecified [nut] Allergy Severe "HIVES,THROAT Verified 03/14/19 08:53 CLOSES" povidone-iodine Allergy Severe Rash Verified 03/14/19 08:53 [From Betadine] soap [From Betadine] Allergy Severe Rash Verified 03/14/19 08:53 Fish Containing Products AdvReac Severe Swelling Verified 03/14/19 08:53 Home Medications: Ambulatory Orders Diltiazem [Cardizem -] 60 mg PO BID 07/10/16 Escitalopram Oxalate [Lexapro -] 5 mg PO DAILY 07/10/16 Apixaban [Eliquis] 5 mg PO BID 11/18/17 Methimazole [Tapazole] 5 mg PO BID 11/18/17 Atorvastatin Ca [Lipitor] 40 mg PO DAILY 03/14/19 Furosemide 80 mg PO DAILY 03/14/19 Lisinopril 5 mg PO BID 03/14/19 Metoprolol Tartrate 100 mg PO BID 03/14/19 Albuterol 2.5/Ipratropium 0.5 [Duoneb -] 1 amp NEB RTID amp 03/21/19 Budesonide/Formeterol Fumarate [SYMBICORT 160/4.5mcg -] 2 puff IH BID inhaler 03/21/19 Cefuroxime Axetil [Ceftin -] 500 mg PO Q12H #10 tablet 03/21/19 Anemia: No Asthma: No Cancer: No Cardiac Disorders: No CVA: No COPD: No CHF: No Dementia: No Diabetes: Yes (under control) Dialysis: Yes () GI Disorders: No Disorders: No HTN: Yes Hypercholesterolemia: Yes Liver Disease: No Seizures: No Thyroid Disease: Yes - Surgical History Abdominal Surgery: No Appendectomy: Yes Cardiac Surgery: No Cholecystectomy: No Lung Surgery: No Neurologic Surgery: No Orthopedic Surgery: No - Immunization History Immunization Up to Date: No - Psycho Social/Smoking Cessation Hx Smoking Status: No Smoking History: Former smoker Have you smoked in the past 12 months: No Number of Cigarettes Smoked Daily: 0 Information on smoking cessation initiated: No Hx Alcohol Use: No Drug/Substance Use Hx: No Substance Use Type: None Hx Substance Use Treatment: No *Physical Exam - Vital Signs Last Vital Signs Temp Pulse Resp BP Pulse Ox 98.5 F 124 H 20 95/69 100 05/05/19 08:40 05/05/19 08:40 05/05/19 08:40 05/05/19 08:40 05/05/19 08:40 ED Treatment Course - LABORATORY CBC & Chemistry Diagram: 05/05/19 09:12 05/05/19 09:12 Discharge - Discharge Information Problems reviewed: Yes Clinical Impression/Diagnosis: Intermittent palpitations, Junctional tachycardia, Inadequate dialysis Condition: Stable - Admission Yes - Follow up/Referral - Patient Discharge Instructions - Post Discharge Activity
--- NOTE | 2019-05-05 09:26 | PDOC ---
Attending Attestation - Resident Resident Name: Michael Carcamo - ED Attending Attestation I have performed the following: I have examined & evaluated the patient, The case was reviewed & discussed with the resident, I agree w/resident's findings & plan - HPI HPI: 05/05/19 09:26 69 YOF with h/o ESRD (HD T/W/Sa), Afib on eliqus (last echo 07/19 showing LVEF 45%), DM, HTN, Hyperthyroid, HCV, moderate pulmonary HTN, presenting with tachycardia/palpiations at HD session, initial episode lasted 5 minutes, resolved, then occurred again. no cp or sob. HD did not complete. pt admits to usually getting palpitations during HD. no cp or sob, fever, n/v/d, - she makes little urine. Nephrology: Dr Man Cards: Dr Arriaza. PMD Dr Villarreal last admitted March 2019 - right renal colic, hydronephrosis s/p cysto, R RUG, ureteral stent placement 05/05/19 09:29 05/05/19 10:58 - Physicial Exam PE: 05/05/19 09:25 Agree with the resident's HPI and PE as documented in the electronic medical record. NAD, well appearing, EOMI, PERRL, nl conjunctiva, anicteric; neck supple. lungs clear, RRR, abdomen soft nontender. obese abdomen. no rebound, guarding. Back nontender. BURGOS x4, no focal neuro deficits. No peripheral edema. normal color for ethnicity, WWP. +LUE AVF palpated. 05/05/19 11:01 - Medical Decision Making 05/05/19 09:26 Vital Signs Temp Pulse Resp BP Pulse Ox 98.5 F 124 H 20 95/69 100 05/05/19 08:40 05/05/19 08:40 05/05/19 08:40 05/05/19 08:40 05/05/19 08:40 DDx: ACS, coronary vasospasm, NSTEMI, arrhythmia, unstable angina, PE, dissection, PUD, esophageal spasm, GERD, gastritis, costochondritis, pneumonia, pleurisy, pericarditis/myocarditis. dehydration, electrolyte/metabolic derangements. EKG normal sinus rhythm, no interval abnormalities, narrow QRS, ST and T wave segments and morphology normal. Nonspecific T wave abnormalities VS on triage, afebrile, +tachy, soft BP could be related to dysequilibrium, from HD session and fluid removal will repeat VS improved on monitor, now in 60-70s, asymptomatic no palp or cp or sob neuro intact. labs and lytes wnl. +trop 0.13, baseline always elevated, but in setting of palp and tachy,, warrants monitor and trending/serials CBC wnl no infectious sx. no fever here nephro cs with Dr Webb, will need to complete HD and arrangement. 05/05/19 11:01 Plan for admit observation, to Dr Villarreal, to r/o ischemia, serial trops and EKG /tele monitoring. discussion with patient and family at bedside, made aware of impression and plan, questions answered. Vital Signs - Vital Signs #1 Time: 10:00 Pulse Rate: 68 Respiratory Rate: 17 O2 Sat by Pulse Oximetry (%): 100 Oxygen Delivery Method: Room Air Heart Score/ECG Review #1 ECG reviewed & interpreted by me at: 08:50 General ECG Interpretation: Sinus Rhythm, Normal Rate Compared to previous ECG there are: No significant change 05/05/19 10:02 EKG normal sinus rhythm 73 bpm, first-degree AV block with VA prolongation narrow QRS, ST and T wave segments and morphology normal. Nonspecific T wave abnormalities
[2019-05-05 09:53] LABS: BASO % 0.9 % (0-2.0); EOS % 6.3 % (0-4.5); HEMATOCRIT 35.7 % (32.4-45.2); HEMOGLOBIN 11.6 GM/dL (10.7-15.3); LYMPH % 19.8 % (8-40); MCH 27.3 pg (25.7-33.7); MCHC 32.5 g/dl (32.0-36.0); MEAN CELL VOLUME 83.9 fl (80-96); MEAN PLT VOLUME 9.7 fl (7.5-11.1); PLATELET COUNT 166 K/MM3 (134-434); RBC 4.25 M/mm3 (3.60-5.2); WHITE BLOOD COUNT 8.5 K/mm3 (4.0-10.0)
[2019-05-05 10:30] LABS: ALBUMIN 2.9 g/dl (3.4-5.0); BILIRUBIN,TOTAL 0.6 mg/dL (0.2-1); BLOOD UREA NITROGEN 30.3 mg/dL (7-18); CALCIUM 8.1 mg/dL (8.5-10.1); CREATININE 5.3 mg/dL (0.55-1.3); MAGNESIUM 2.2 mg/dL (1.8-2.4); POTASSIUM 4.1 mmol/L (3.5-5.1)
--- NOTE | 2019-05-05 10:49 | HP ---
Admitting History and Physical - Primary Care Physician PCP: Rebecca Villarreal S - Admission Chief Complaint: palpitations, rapid HR History of Present Illness: 69 y/o female presenting to [facility] ER via EMS from dialysis center complaining of two self limited episodes of palpitations each lasting approx. 5 minutes. Occurred approx. 1 hour into her regularly scheduled hemodialysis. EMS provided two rhythm strips which demonstrated an initial accelerated junction rhythm at approx. 125 BPM that transitioned to a sinus rhythm. Pt denies associated SOB, chest pain, arm pain, back pain, or neck pain. Denies recent illness, flushing, diarrhea. 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) Cardiovascular: Yes: CHF, HTN, Hyperlipdemia Pulmonary: Yes: Asthma, Pneumonia, Other (ILD) Gastrointestinal: Yes: Constipation, GERD Hepatobiliary: Yes: Hepatitis C Renal/: Yes: Renal Inusuff Heme/Onc: Yes: Anemia Musculoskeletal: Yes: Osteoarthritis Endocrine: Yes: Diabetes Mellitus, Hyperthyroidism, Other - Past Surgical History Past Surgical History: Yes: , Hysterectomy, Appendectomy, Colonoscopy - Smoking History Smoking history: Former smoker Have you smoked in the past 12 months: No Aproximately how many cigarettes per day: 0 - Alcohol/Substance Use Hx Alcohol Use: No History of Substance Use: reports: None - Social History Usual Living Arrangement: Yes: Alone Do you think of yourself as: Straight/Heterosexual ADL: Independent History of Recent Travel: No Home Medications - Allergies Allergies/Adverse Reactions: Allergies Allergy/AdvReac Type Severity Reaction Status Date / Time mushroom Allergy Severe Rash Verified 03/14/19 08:53 nut - unspecified [nut] Allergy Severe "HIVES,THROAT Verified 03/14/19 08:53 CLOSES" povidone-iodine Allergy Severe Rash Verified 03/14/19 08:53 [From Betadine] soap [From Betadine] Allergy Severe Rash Verified 03/14/19 08:53 Fish Containing Products AdvReac Severe Swelling Verified 03/14/19 08:53 - Home Medications Home Medications: Ambulatory Orders Diltiazem [Cardizem -] 30 mg PO BID 07/10/16 Escitalopram Oxalate [Lexapro -] 5 mg PO DAILY 07/10/16 Apixaban [Eliquis] 5 mg PO BID 11/18/17 Methimazole [Tapazole] 5 mg PO DAILY 11/18/17 Atorvastatin Ca [Lipitor] 40 mg PO DAILY 03/14/19 Lisinopril 7.5 mg PO BID 03/14/19 Metoprolol Tartrate 50 mg PO DAILY 03/14/19 Albuterol 2.5/Ipratropium 0.5 [Duoneb -] 1 amp NEB RTID amp 03/21/19 Budesonide/Formeterol Fumarate [SYMBICORT 160/4.5mcg -] 2 puff IH BID inhaler 03/21/19 Furosemide [Lasix -] 80 mg PO DAILY tablet 05/06/19 Family Medical History Family History: Unremarkable Review of Systems - Review of Systems Constitutional: denies: Chills, Fever, Lethargy, Loss of Appetite Eyes: denies: Blind Spots, Double Vision, Eye Pain HENT: denies: Ear Pain, Epistaxis Neck: denies: Stiffness, Tenderness Cardiovascular: reports: Palpitations. denies: Chest Pain, Shortness of Breath Respiratory: denies: Cough, SOB Gastrointestinal: denies: Abdominal Pain, Bloating, Constipation, Diarrhea, Vomiting Genitourinary: denies: Burning, Discharge, Dysuria, Flank Pain Musculoskeletal: denies: Back Pain, Extremity Pain, Muscle Cramps Integumentary: denies: Blister, Eczema, Lump, Pallor, Pruritis, Rash, Wound Neurological: denies: Change in LOC, Change in Speech, Confusion, Dizziness, Unsteady Gait, Weakness Endocrine: denies: Excessive Sweating, Flushing, Unexplained Weight Gain, Unexplained Weight Loss Hematology/Lymphatic: denies: Easily Bruised, Excessive Bleeding Psychiatric: denies: Altered Sleep Pattern, Anxiety, Depression, Suicidal Physical Examination Vital Signs: Vital Signs Temperature 97.2 F L 05/05/19 10:13 Pulse Rate 68 05/05/19 10:03 Respiratory Rate 17 05/05/19 10:03 Blood Pressure 95/69 05/05/19 08:40 O2 Sat by Pulse Oximetry (%) 100 05/05/19 10:03 Constitutional: Yes: No Distress, Calm Eyes: Yes: Conjunctiva Clear HENT: Yes: Atraumatic Neck: Yes: Supple Cardiovascular: Yes: Regular Rate and Rhythm Respiratory: Yes: CTA Bilaterally Gastrointestinal: Yes: Soft. No: Tenderness Renal/: No: CVA Tenderness - Left, CVA Tenderness - Right, Hematuria Musculoskeletal: No: Joint Stiffness, Joint Swelling Extremities: No: Calf Tenderness, Cold, Cool, Cyanosis Edema: No Integumentary: No: Rash, Venous Stasis Changes Neurological: Yes: Alert, Oriented ...Motor Strength: WNL Psychiatric: Yes: Alert, Oriented. No: Agitated, Suicidal Ideation Labs: CBC, BMP 05/05/19 09:12 05/05/19 09:12 Imaging - Results Chest X-ray: Report Reviewed Other: Report Reviewed Assessment/Plan 69 y/o female presenting to [facility] ER via EMS from dialysis center complaining of two self limited episodes of palpitations each lasting approx. 5 minutes. Occurred approx. 1 hour into her regularly scheduled hemodialysis. EMS provided two rhythm strips which demonstrated an initial accelerated junction rhythm at approx. 125 BPM that transitioned to a sinus rhythm. Pt denies associated SOB, chest pain, arm pain, back pain, or neck pain. Denies recent illness, flushing, diarrhea. Trop I borderline positive admit to telemetry; f/u CE cardizem po; IV as necessary cardiology eval dialysis per renal d/w pt and staff
--- NOTE | 2019-05-05 13:19 | CONSULT ---
Consult - text type - Consultation Consultation Note: Renal consult for ESRD on HD This is a 69 year old woman with history of ESRD on HD, hypertension, Hep C, DM, hypertension, Afib on Eliquis who presented from dialysis with tachycardia during treatment. Pt seen and examined in the ER. Awake and alert. She offers no acute complaints. No chest pain, palpitations, abd pain, N/V/D currently. No fever or chills. No leg swelling. PMhx: as above Allergies: as listed in the EMR Family Hx: NC Social Hx: No T/A/D ROS: as per HPI, all other pertinent ros negative Home Medications Medication Instructions Recorded Diltiazem [Cardizem -] 60 mg PO BID 07/10/16 Escitalopram Oxalate [Lexapro -] 5 mg PO DAILY 07/10/16 Apixaban [Eliquis] 5 mg PO BID 11/18/17 Methimazole [Tapazole] 5 mg PO BID 11/18/17 Atorvastatin Ca [Lipitor] 40 mg PO DAILY 03/14/19 Furosemide 80 mg PO DAILY 03/14/19 Lisinopril 5 mg PO BID 03/14/19 Metoprolol Tartrate 100 mg PO BID 03/14/19 Albuterol 2.5/Ipratropium 0.5 1 amp NEB RTID amp 03/21/19 [Duoneb -] Budesonide/Formeterol Fumarate 2 puff IH BID inhaler 03/21/19 [SYMBICORT 160/4.5mcg -] Cefuroxime Axetil [Ceftin -] 500 mg PO Q12H #10 tablet 03/21/19 Vital Signs Temperature 97.2 F L 05/05/19 10:13 Pulse Rate 68 05/05/19 11:04 Respiratory Rate 17 05/05/19 11:04 Blood Pressure 95/69 05/05/19 08:40 O2 Sat by Pulse Oximetry (%) 100 05/05/19 11:04 Intake & Output 05/02/19 05/03/19 05/04/19 05/05/19 23:59 23:59 23:59 23:59 Weight 103.419 kg NAD awake and alert neck supple RRR CTA, soft NT/ND no LE edmea, clubbing or cyanosis no focal neurologic deficits CBC, BMP 05/05/19 09:12 05/05/19 09:12 69 year old woman with history of ESRD on HD, hypertension, Hep C, DM, hypertension, Afib on Eliquis who presented from dialysis with tachycardia during treatment. 1. Tachycarida/SVT/Rapid Afib 2. ESRD on HD 3. Hypertension 4. DM HR is improved in the ER. Cardiology consult Tele monitoring continue beta louis and CCB, titrate as per Cardiology recs NO acute need for dialysis today as she has no hyperkalemia or fluid overload will reaccess in the morning Renal diet continue home DM meds Thank you Jon Paz DO
--- NOTE | 2019-05-05 13:26 | EKG ---
Test Reason : Blood Pressure : / mmHG Vent. Rate : 073 BPM Atrial Rate : 073 BPM P-R Int : 274 ms QRS Dur : 092 ms QT Int : 416 ms P-R-T Axes : 072 -24 095 degrees QTc Int : 458 ms SINUS RHYTHM WITH 1ST DEGREE A-V BLOCK POSSIBLE ANTERIOR INFARCT (CITED ON OR BEFORE 13-MAR-2018) ABNORMAL ECG WHEN COMPARED WITH ECG OF 14-MAR-2019 08:36, NO SIGNIFICANT CHANGE WAS FOUND Confirmed by Augustus Jacques MD ([id number]) on 05/05/2019 1:26:44 PM Referred By: Confirmed By:Augustus Jacques MD
[2019-05-05] MEDS ORDERED: ALBUTEROL SO4 2.5/IPRATROPIUM 0.5 INH SOL 3 ML VIAL.NEB. NEB PRN (16:53)
[2019-05-05 17:45] VITALS: BMI 34.7
[2019-05-05] MEDS: BUDESONIDE/FORMETEROL FUMARATE 160/4.5 mcg INHALER IH SCH (21:49)
[2019-05-05] MEDS: APIXABAN 5 MG TABLET PO SCH (21:49)
[2019-05-05] MEDS: LISINOPRIL 5 MG TABLET (FP) PO SCH (21:49)
[2019-05-05] MEDS: dilTIAZem HCL 30 MG TABLET (FP) PO SCH (21:49)
[2019-05-05] MEDS: METOPROLOL TARTRATE 50 MG TABLET (FP) PO SCH (21:49)
[2019-05-05] MEDS: METHIMAZOLE 5 MG TABLET (FP) PO SCH (21:50)
[2019-05-05] MEDS ORDERED: ATORVASTATIN CA 40 MG TABLET (FP) PO SCH (22:00)
[2019-05-05] MEDS ORDERED: PATIENT'S OWN MEDICATION (NON-FORMULARY) (Metoprolol Tartrate [Metoprolol Tartrate] 100 MG PO SCH (22:00)
[2019-05-06 08:23] LABS: BLOOD UREA NITROGEN 46.7 mg/dL (7-18); CALCIUM 8.3 mg/dL (8.5-10.1); CREATININE 6.2 mg/dL (0.55-1.3); POTASSIUM 4.4 mmol/L (3.5-5.1)
--- NOTE | 2019-05-06 08:42 | DS ---
Physical Examination Vital Signs: Vital Signs Temperature 98.0 F 05/06/19 05:00 Pulse Rate 65 05/06/19 05:00 Respiratory Rate 20 05/06/19 05:00 Blood Pressure 118/70 05/06/19 05:00 O2 Sat by Pulse Oximetry (%) 99 05/05/19 21:00 Findings/Remarks: in bed awake alert NAD VSS no c/o wants to go home; HR better d/w pt needs outpt f/u with cardiology within 1 week also with endocrine dr Natarajan for thyroid ds, PCP in 2-3 weeks to have GI colonoscopy and [employer] pap mammogram health maintenance - she said she will HD per renal; d/w cardio anbd renal OK to DC home Constitutional: Yes: No Distress, Calm Eyes: Yes: Conjunctiva Clear HENT: Yes: Atraumatic Neck: Yes: Supple Cardiovascular: Yes: Regular Rate and Rhythm Respiratory: Yes: CTA Bilaterally Gastrointestinal: Yes: Soft. No: Tenderness Renal/: No: Hematuria Musculoskeletal: No: Joint Stiffness, Joint Swelling Extremities: No: Cold, Cool, Cyanosis Edema: No Integumentary: No: Rash, Venous Stasis Changes Neurological: Yes: Alert, Oriented ...Motor Strength: WNL Psychiatric: Yes: Alert, Oriented. No: Agitated, Suicidal Ideation Labs: CBC, BMP 05/05/19 09:12 05/06/19 06:43 Discharge Summary Problems reviewed: Yes Reason For Visit: PALPITATIONS,INADEQUATE DIALYSIS, Current Active Problems Inadequate dialysis (Acute) Intermittent palpitations (Acute) Junctional tachycardia (Acute) Procedures: Principal: 69 YOF ASHD AFib CHF throid ds, ESRD / HD admitted with palpitations and SVT Other Procedures: monitored in telemetry seen by cardiology; HD per renal Hospital Course: BB and CaBlockers as ordered; improved; DC home and f/u as advised Condition: Stable - Instructions Diet, Activity, Other Instructions: f/u PCP, cardiology and endocrine in 1-2 weeks; dialysis per renal; GI and [employer] f/u and mammogram outpt Referrals: Rebecca Villarreal [Primary Care Provider] - Garfield Arriaza MD [Staff Physician] - Jon Paz MD [Staff Physician] - Katherine Natarajan MD [Staff Physician] - Disposition: VNS/HOME HEALTH CARE - Home Medications Comprehensive Discharge Medication List: Ambulatory Orders Diltiazem [Cardizem -] 30 mg PO BID 07/10/16 Escitalopram Oxalate [Lexapro -] 5 mg PO DAILY 07/10/16 Apixaban [Eliquis] 5 mg PO BID 11/18/17 Methimazole [Tapazole] 5 mg PO BID 11/18/17 Atorvastatin Ca [Lipitor] 40 mg PO DAILY 03/14/19 Furosemide 80 mg PO DAILY 03/14/19 Lisinopril 7.5 mg PO BID 03/14/19 Metoprolol Tartrate 100 mg PO BID 03/14/19 Albuterol 2.5/Ipratropium 0.5 [Duoneb -] 1 amp NEB RTID amp 03/21/19 Budesonide/Formeterol Fumarate [SYMBICORT 160/4.5mcg -] 2 puff IH BID inhaler 03/21/19
--- NOTE | 2019-05-06 08:44 | EKG ---
Test Reason : Blood Pressure : / mmHG Vent. Rate : 066 BPM Atrial Rate : 066 BPM P-R Int : 300 ms QRS Dur : 096 ms QT Int : 442 ms P-R-T Axes : 029 -25 100 degrees QTc Int : 463 ms SINUS RHYTHM WITH 1ST DEGREE A-V BLOCK CANNOT RULE OUT ANTERIOR INFARCT (CITED ON OR BEFORE 13-MAR-2018) T WAVE ABNORMALITY, CONSIDER LATERAL ISCHEMIA ABNORMAL ECG WHEN COMPARED WITH ECG OF 05-MAY-2019 08:51, NO SIGNIFICANT CHANGE WAS FOUND Confirmed by MD CHRISSIE, HARRIETT ([id number]) on 05/06/2019 8:44:46 AM Referred By: Confirmed By:HARRIETT DICKENS MD
[2019-05-06] MEDS ORDERED: FUROSEMIDE 80 MG PO SCH (10:00)
[2019-05-06] MEDS ORDERED: PATIENT'S OWN MEDICATION (NON-FORMULARY) (Escitalopram Oxalate [Lexapro -] 5 MG) PO SCH (10:00)
[2019-05-06] MEDS ORDERED: ESCITALOPRAM OXALATE 10 MG TABLET PO SCH (10:00)
[2019-05-06] MEDS ORDERED: FUROSEMIDE 40 MG TABLET (FP) PO SCH (10:00)
[2019-05-06] MEDS: METOPROLOL TARTRATE 50 MG TABLET (FP) PO SCH (10:39)
[2019-05-06] MEDS: LISINOPRIL 5 MG TABLET (FP) PO SCH (10:39)
[2019-05-06] MEDS: APIXABAN 5 MG TABLET PO SCH (10:39)
[2019-05-06] MEDS: dilTIAZem HCL 30 MG TABLET (FP) PO SCH (10:41)
[2019-05-06] MEDS: METHIMAZOLE 5 MG TABLET (FP) PO SCH (10:41)
[2019-05-06] MEDS: BUDESONIDE/FORMETEROL FUMARATE 160/4.5 mcg INHALER IH SCH (10:41)
--- NOTE | 2019-05-06 11:24 | CON.CARD ---
Cardiology Consult (text) - Consultation Consultation Note: 69 yo F here fast heart rate, palps during dialysis yesterday. [place] her heart racing, had two episodes each lasting 5 min, she notes this has happened before during dialysis when it is"too strong". Reportedly episodes occurred an hour into dialysis, reportedly rhythm strips from EMS showed accelerated junctional rhythm at 100 bpm and then sinus rhythm per ER records. No chest pain, palps, dizziness, dyspnea. Sees Dr Arriaza for cardio. 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) Cardio/Vascular: Yes: CHF (end diastolic), HTN, Hyperlipdemia Pulmonary: Yes: Asthma, Pneumonia, Other (ILD) Gastrointestinal: Yes: Constipation, GERD Hepatobiliary: Yes: Hepatitis C Renal/: Yes: Renal Inusuff Musculoskeletal: Yes: Osteoarthritis Endocrine: Yes: Diabetes Mellitus (diabetic retinopathy ( treated ) and neuropathy), Hyperthyroidism (Graves Disease with thyroid nodule), Other ( THYROID DISEASE) - Past Surgical History Past Surgical History: Yes: , Hysterectomy, Appendectomy, Colonoscopy - Alcohol/Substance Use Hx Alcohol Use: No History of Substance Use: reports: None - Smoking History Smoking history: Unknown if ever smoked Have you smoked in the past 12 months: No Aproximately how many cigarettes per day: 0 - Social History Usual Living Arrangement: Alone ADL: Independent History of Recent Travel: No Home Medications Home Medications Medication Instructions Recorded Diltiazem [Cardizem -] 30 mg PO BID 07/10/16 Escitalopram Oxalate [Lexapro -] 5 mg PO DAILY 07/10/16 Apixaban [Eliquis] 5 mg PO BID 11/18/17 Methimazole [Tapazole] 5 mg PO DAILY 11/18/17 Atorvastatin Ca [Lipitor] 40 mg PO DAILY 03/14/19 Lisinopril 7.5 mg PO BID 03/14/19 Metoprolol Tartrate 50 mg PO DAILY 03/14/19 Albuterol 2.5/Ipratropium 0.5 1 amp NEB RTID amp 03/21/19 [Duoneb -] Budesonide/Formeterol Fumarate 2 puff IH BID inhaler 03/21/19 [SYMBICORT 160/4.5mcg -] Allergies Allergy/AdvReac Type Severity Reaction Status Date / Time mushroom Allergy Severe Rash Verified 03/14/19 08:53 nut - unspecified [nut] Allergy Severe "HIVES,THROAT Verified 03/14/19 08:53 CLOSES" povidone-iodine Allergy Severe Rash Verified 03/14/19 08:53 [From Betadine] soap [From Betadine] Allergy Severe Rash Verified 03/14/19 08:53 Fish Containing Products AdvReac Severe Swelling Verified 03/14/19 08:53 Family Disease History - Family Disease History Family Disease History: Diabetes: Mother (alive 91), Brother Review of Systems - Review of Systems Constitutional: reports: Chills. denies: Fever Eyes: denies: Eye Pain HENT: denies: Nasal Congestion Neck: denies: Stiffness Cardiovascular: denies: Palpitations Respiratory: denies: Orthopnea, PND Gastrointestinal: denies: Diarrhea, Rectal Bleeding Genitourinary: denies: Burning, Hematuria Musculoskeletal: denies: Muscle Pain Integumentary: denies: Rash Neurological: denies: Numbness, Seizure, Syncope Endocrine: denies: Excessive Sweating Hematology/Lymphatic: denies: Excessive Bleeding Vital Signs Period Temp Pulse Resp BP Sys/Chavarria Pulse Ox Last 24 Hr 98 F-98.4 F 64-75 18-20 114-141/54-72 99-100 Constitutional: Yes: Well Nourished, No Distress Eyes: No: Sclera Icterus HENT: No: Nasal Congestion Respiratory: Yes: CTA Bilaterally. No: Accessory Muscle Use, Rales, Wheezes Gastrointestinal: Yes: Normal Bowel Sounds. No: Distention, Hepatomegaly, Palpable Mass, Tenderness Cardiovascular: Yes: Regular Rate and Rhythm JVD: No Carotid Bruit: No PMI: Non-Displaced Heart Sounds: Yes: S1, S2. No: Gallop Murmur: No: Systolic Murmur, Diastolic Murmur Extremities: No: Cool, Cyanosis Edema: No Integumentary: No: Jaundice Neurological: Yes: Alert, Oriented (x3) Psychiatric: No: Agitated Laboratory Last Values WBC 8.5 K/mm3 (4.0-10.0) 05/05/19 09:12 RBC 4.25 M/mm3 (3.60-5.2) 05/05/19 09:12 Hgb 11.6 GM/dL (10.7-15.3) 05/05/19 09:12 Hct 35.7 % (32.4-45.2) D 05/05/19 09:12 MCV 83.9 fl (80-96) 05/05/19 09:12 MCH 27.3 pg (25.7-33.7) 05/05/19 09:12 MCHC 32.5 g/dl (32.0-36.0) 05/05/19 09:12 RDW 18.0 % (11.6-15.6) H 05/05/19 09:12 Plt Count 166 K/MM3 (134-434) D 05/05/19 09:12 MPV 9.7 fl (7.5-11.1) 05/05/19 09:12 Absolute Neuts (auto) 5.1 K/mm3 (1.5-8.0) 05/05/19 09:12 Neutrophils % 61.0 % (42.8-82.8) 05/05/19 09:12 Lymphocytes % 19.8 % (8-40) 05/05/19 09:12 Monocytes % 12.0 % (3.8-10.2) H 05/05/19 09:12 Eosinophils % 6.3 % (0-4.5) H D 05/05/19 09:12 Basophils % 0.9 % (0-2.0) 05/05/19 09:12 Nucleated RBC % 0 % (0-0) 05/05/19 09:12 Sodium 135 mmol/L (136-145) L 05/06/19 06:43 Potassium 4.4 mmol/L (3.5-5.1) 05/06/19 06:43 Chloride 104 mmol/L (98-107) 05/06/19 06:43 Carbon Dioxide 23 mmol/L (21-32) 05/06/19 06:43 Anion Gap 8 MMOL/L (8-16) 05/06/19 06:43 BUN 46.7 mg/dL (7-18) H 05/06/19 06:43 Creatinine 6.2 mg/dL (0.55-1.3) H 05/06/19 06:43 Est GFR (CKD-EPI)AfAm 7.33 05/06/19 06:43 Est GFR (CKD-EPI)NonAf 6.33 05/06/19 06:43 Random Glucose 69 mg/dL (74-106) L 05/06/19 06:43 Calcium 8.3 mg/dL (8.5-10.1) L 05/06/19 06:43 Phosphorus 4.0 mg/dL (2.5-4.9) 05/05/19 09:12 Magnesium 2.2 mg/dL (1.8-2.4) 05/05/19 09:12 Total Bilirubin 0.6 mg/dL (0.2-1) 05/05/19 09:12 AST 30 U/L (15-37) 05/05/19 09:12 ALT 27 U/L (13-61) 05/05/19 09:12 Alkaline Phosphatase 268 U/L (45-117) H 05/05/19 09:12 Creatine Kinase 72 U/L (26-192) 05/06/19 06:43 Troponin I 0.12 ng/ml (0.00-0.05) H 05/06/19 06:43 Total Protein 7.0 g/dl (6.4-8.2) 05/05/19 09:12 Albumin 2.9 g/dl (3.4-5.0) L 05/05/19 09:12 TSH 3.15 uIU/ml (0.358-3.74) 05/05/19 09:12 Thyroxine (T4) 9.5 ug/dl (4.5-13.9) 05/05/19 09:12 ECG: sr, 1st avb, lat twis, no st changes, no sig change prior cxr: no sig chf MPI 07/19 (marjan): no isch STs, pt in afib. mid-AW ischemia, distal IW ischemia. fixed apical defect. EF 30%, no TID Echo 07/19: moderate LVE, mildly decr'd LVEF (45%), GLOBAL. nl RV size, mild RV hypo. mild LAE. mod MR. mild pHTN (RVSP 42). nl LAP. tele: sinus, PVCs a/p: palpitations, tachycardia - noted during HD - resolved - hx PSVT and paroxysmal afib - no events on tele overnight, remains asymptomatic - cont home metoprolol, diltiazem elevated trop - trop indeterminate range in setting of ESRD, flat trend, EKG no ischemic changes - no signs ACS CAD: -2018 stress test with ischemia in RCA and also LAD distributions. -she has been asymptomatic (walks with walker on street at baseline) -cont home med regimen: AC (no ASA), statin, bb chronic syst/diast CHF (mixed), moderate MR, mild pHTN: -pt with known mild to moderate vs moderate decrease in LVEF. ? isch CMP ( inferoposterior WMAs worse on prior hosp echo review here), ? nonischemic ( uncontrolled DM long time, global appearance of hypokinesis on recent imaging) -has been clinically euvolemic for long time, with volume status stable with HD mgmt -continues to appear euvolemic here, outpt wt trend (pre and post dialysis wts) stable. -no audible MR murmur, echo images not concerning for severe MR previously ( serial studies) parox AF: -pt incidentally noted to be in afib during stress test 2018 -no recurrence since -on good AVN louis regimen for PSVT prophylaxis--continue same -on Eliquis PSVT: -frequent episodes of very rapid SVT during prior hospital stays, whenever meds are interrupted -tolerating home metoprolol and diltiazem regimen long time, with good arrhythmia control HTN: -stable overall -same meds ESRD on HD: -dialysis per renal pulm fibrosis: -hospitalized here previously with unexplained interstitial lung dz picture, no specific dx made on bronch--treated empirically with steroids with good resolution; -per pmd h/o posterior circulation CVA: -on AC now (Aggrenox stopped), statin hyperthyroidism: -on methimazole, sees dr chiu for endo stable for dc from cardiac perspective
--- NOTE | 2019-05-06 12:08 | PN ---
Progress Note (short form) - Note Progress Note: Renal follow up for ESRD on HD Seen and examined at the bedside awake and alert feels well no chest pain or palpitations no N/V/D, fever or chills Vital Signs Temperature 98 F 05/06/19 09:00 Pulse Rate 64 05/06/19 09:00 Respiratory Rate 18 05/06/19 09:00 Blood Pressure 114/54 L 05/06/19 09:00 O2 Sat by Pulse Oximetry (%) 99 05/05/19 21:00 Intake & Output 05/03/19 05/04/19 05/05/19 05/06/19 23:59 23:59 23:59 23:59 Intake Total 500 250 Balance 500 250 Weight 103.419 kg 102.875 kg NAD awake and alert neck supple RRR CTA, soft NT/ND no LE edema, clubbing or cyanosis no focal neurologic deficits CBC, BMP 05/05/19 09:12 05/06/19 06:43 Current Medications Albuterol/Ipratropium (Duoneb -) 1 amp NEB TID PRN PRN Reason: WHEEZING Apixaban (Eliquis -) 5 mg PO BID [facility] Last Admin: 05/06/19 10:39 Dose: 5 mg Atorvastatin Calcium (Lipitor -) 40 mg PO HS [facility] Last Admin: 05/05/19 21:49 Dose: 40 mg Budesonide/Formoterol Fumarate (Symbicort 160/4.5mcg -) 2 puff IH BID [facility] Last Admin: 05/06/19 10:41 Dose: 2 puff Diltiazem HCl (Cardizem -) 30 mg PO BID [facility] Last Admin: 05/06/19 10:41 Dose: 30 mg Escitalopram Oxalate (Lexapro -) 5 mg PO DAILY [facility] Last Admin: 05/06/19 10:40 Dose: 5 mg Furosemide (Lasix -) 80 mg PO DAILY [facility] Last Admin: 05/06/19 10:45 Dose: Not Given Lisinopril (Prinivil) 7.5 mg PO BID [facility] Last Admin: 05/06/19 10:39 Dose: 7.5 mg Methimazole (Tapazole -) 5 mg PO BID [facility] Last Admin: 05/06/19 10:41 Dose: 5 mg Metoprolol Tartrate (Lopressor -) 100 mg PO BID [facility] Last Admin: 05/06/19 10:39 Dose: 100 mg 69 year old woman with history of ESRD on HD, hypertension, Hep C, DM, hypertension, Afib on Eliquis who presented from dialysis with tachycardia during treatment. 1. Tachycarida/SVT/Rapid Afib 2. ESRD on HD 3. Hypertension 4. DM NO acute need for dialysis today as she has no hyperkalemia or fluid overload seen by cardiology, no further intervention needed can resume dialysis as an outpatient tomorrow. Renal diet Thank you Jon Paz DO
[2019-05-06 14:40] VITALS: BP 108/60; PULSE 62; TEMP 98.6
== END 2019-05-06 14:42 | disposition home health service (06) ==
LOC: JER 08:34 → JERBED 10:51 → J4W 16:48
PROVIDERS: ADMIT Specialist; ATTEND Specialist
PROC: 3E0F7GC Introduction of Other Therapeutic Substance into Respiratory Tract, Via Natural or Artificial Opening (ICD-10-PCS; principal; 2019-05-05)
DX: I47.1 Supraventricular tachycardia (principal); E11.22 Type 2 diabetes mellitus with diabetic chronic kidney disease; I13.2 Hypertensive heart and chronic kidney disease with heart failure and with stage 5 chronic kidney disease, or end stage renal disease; I50.9 Heart failure, unspecified; N18.6 End stage renal disease; Z99.2 Dependence on renal dialysis; Z87.891 Personal history of nicotine dependence; E78.5 Hyperlipidemia, unspecified; I48.91 Unspecified atrial fibrillation; E05.90 Thyrotoxicosis, unspecified without thyrotoxic crisis or storm; I27.20 Pulmonary hypertension, unspecified; K21.9 Gastro-esophageal reflux disease without esophagitis; Z86.73 Personal history of transient ischemic attack (TIA), and cerebral infarction without residual deficits; Z79.01 Long term (current) use of anticoagulants; Z91.013 Allergy to seafood; Z91.018 Allergy to other foods; Z91.048 Other nonmedicinal substance allergy status; Z91.15 Patient's noncompliance with renal dialysis
CPT/HCPCS: 36415; 71045-TC-FY; 80048; 80053; 82550; 83735; 84100; 84436; 84443; 84484; 85025; 93005; 93010; 94640; 99283-25; G0378

== ENCOUNTER 2019-11-03 14:24 | Inpatient (IN) | payer OTHER ==
--- NOTE | 2019-11-03 14:33 | PDOC ---
Rapid Medical Evaluation Chief Complaint: Dialysis Shunt Problem Time Seen by Provider: 11/03/19 14:26 Medical Evaluation: Allergies Allergy/AdvReac Type Severity Reaction Status Date / Time mushroom Allergy Severe Rash Verified 11/03/19 14:25 nut - unspecified [nut] Allergy Severe "HIVES,THROAT Verified 11/03/19 14:25 CLOSES" povidone-iodine Allergy Severe Rash Verified 11/03/19 14:25 [From Betadine] soap [From Betadine] Allergy Severe Rash Verified 11/03/19 14:25 Fish Containing Products AdvReac Severe Swelling Verified 11/03/19 14:25 Vital Signs Temp Pulse Resp BP Pulse Ox 98.6 F 51 L 18 127/78 100 11/03/19 14:26 11/03/19 14:26 11/03/19 14:26 11/03/19 14:26 11/03/19 14:26 11/03/19 14:32 CC: missed hd today occleded fistula, sent by deshawn for sx , nild sob, last hd saturday (03/05 completed) Exam: lupe but otherwise normal PE. lcta Plan: preop Discharge Disposition - Diagnosis Dialysis catheter clot or failure - Referrals - Patient Instructions - Post Discharge Activity
--- NOTE | 2019-11-03 15:29 | PDOC ---
History of Present Illness - General Chief Complaint: Dialysis Shunt Problem Stated Complaint: SENT BY PCP/FOLLOW-UP Time Seen by Provider: 11/03/19 14:26 - History of Present Illness Initial Comments: HPI Pt is a 69 yo F with ESRD on dialysis (T/R/S, last session half completed on Saturday), DM, HTN, AFib on eliquis (last echo 07/19 showing LVEF 45%), hyperthyroidism, and HCV presenting to the [facility] ED after she was found to have an occluded fistula/catheter (LUE) at her dialysis session. Her vascular surgeon, Dr. Oakes, is aware. Pt reports she has mild SOB because she is nervous. Pt denies arm pain, chest pain, calf pain, palpitations, fevers, chills, changes in vision, neausea, vomiting, diarrhea, constipation, dizziness, headache, or urinary changes. PMHX: as in HPI PSHX: pt reports that she has had to have her dialysis fistula repaired several times. Meds: Home Medications Medication Instructions Recorded Diltiazem [Cardizem -] 30 mg PO BID 07/10/16 Escitalopram Oxalate [Lexapro -] 5 mg PO DAILY 07/10/16 Apixaban [Eliquis] 5 mg PO BID 11/18/17 Methimazole [Tapazole] 5 mg PO DAILY 11/18/17 Atorvastatin Ca [Lipitor] 40 mg PO DAILY 03/14/19 Lisinopril 7.5 mg PO BID 03/14/19 Metoprolol Tartrate 50 mg PO DAILY 03/14/19 Albuterol 2.5/Ipratropium 0.5 1 amp NEB RTID amp 03/21/19 [Duoneb -] Budesonide/Formeterol Fumarate 2 puff IH BID inhaler 03/21/19 [SYMBICORT 160/4.5mcg -] Furosemide [Lasix -] 80 mg PO DAILY tablet 05/06/19 Allergies: mushroom, nut, povidone-iodine, soap Tob: denies Etoh: denies Rec drugs: denies PCP: Rebecca Androne ROS GENERAL/CONSTITUTIONAL: No fever or chills. No weakness. HEAD, EYES, EARS, NOSE AND THROAT: No change in vision. No ear pain or discharge. No sore throat. CARDIOVASCULAR: No chest pain or shortness of breath RESPIRATORY: No cough, wheezing, or hemoptysis. GASTROINTESTINAL: No nausea, vomiting, diarrhea or constipation. GENITOURINARY: No dysuria, frequency, or change in urination. MUSCULOSKELETAL: No joint or muscle swelling or pain. No neck or back pain. SKIN: No rash NEUROLOGIC: No headache, vertigo, loss of consciousness, or change in strength/sensation. ENDOCRINE: No increased thirst. No abnormal weight change HEMATOLOGIC/LYMPHATIC: No anemia, easy bleeding, or history of blood clots. ALLERGIC/IMMUNOLOGIC: No hives or skin allergy. PE GENERAL: Awake, alert, and fully oriented, in no acute distress; resting comfortably HEAD: No signs of trauma, normocephalic, atraumatic EYES: PERRLA, EOMI, sclera anicteric, conjunctiva clear ENT: Auricles normal inspection, hearing grossly normal, nares patent, oropharynx clear without exudates. Moist mucosa NECK: Normal ROM, supple, no lymphadenopathy, JVD, or masses LUNGS: No distress, speaks full sentences, clear to auscultation bilaterally HEART: Regular rate and rhythm, normal S1 and S2, no murmurs, rubs or gallops, peripheral pulses normal and equal bilaterally. ABDOMEN: Soft, nontender, normoactive bowel sounds. EXTREMITIES : Normal inspection, Normal range of motion, no edema. No thrill/bruit appreciated over site of LUE fistula. NEUROLOGICAL: Normal speech, sensation to light touch intact, no focal sensorimotor deficits SKIN: Warm, Dry, normal turgor, no rashes or lesions noted 11/03/19 15:34 11/03/19 15:51 Past History - Medical History Allergies/Adverse Reactions: Allergies Allergy/AdvReac Type Severity Reaction Status Date / Time mushroom Allergy Severe Rash Verified 11/03/19 14:25 nut - unspecified [nut] Allergy Severe "HIVES,THROAT Verified 11/03/19 14:25 CLOSES" povidone-iodine Allergy Severe Rash Verified 11/03/19 14:25 [From Betadine] soap [From Betadine] Allergy Severe Rash Verified 11/03/19 14:25 Fish Containing Products AdvReac Severe Swelling Verified 11/03/19 14:25 Home Medications: Ambulatory Orders Diltiazem [Cardizem -] 30 mg PO BID 07/10/16 Escitalopram Oxalate [Lexapro -] 5 mg PO DAILY 07/10/16 Apixaban [Eliquis] 5 mg PO BID 11/18/17 Methimazole [Tapazole] 5 mg PO DAILY 11/18/17 Atorvastatin Ca [Lipitor] 40 mg PO DAILY 03/14/19 Lisinopril 7.5 mg PO BID 03/14/19 Metoprolol Tartrate 50 mg PO DAILY 03/14/19 Albuterol 2.5/Ipratropium 0.5 [Duoneb -] 1 amp NEB RTID amp 03/21/19 Budesonide/Formeterol Fumarate [SYMBICORT 160/4.5mcg -] 2 puff IH BID inhaler 03/21/19 Furosemide [Lasix -] 80 mg PO DAILY tablet 05/06/19 Anemia: No Asthma: No Cancer: No Cardiac Disorders: Yes (afib on eliquis.pulmonary hypertension) CVA: No COPD: No CHF: No Dementia: No Diabetes: No Dialysis: Yes (SATURDAY, SATURDAY, SATURDAY) GI Disorders: No Disorders: No HTN: Yes Hypercholesterolemia: Yes Liver Disease: No Seizures: No Thyroid Disease: Yes (hyperthyroidism) - Surgical History Abdominal Surgery: No Appendectomy: Yes Cardiac Surgery: No Cholecystectomy: No Lung Surgery: No Neurologic Surgery: No Orthopedic Surgery: No - Immunization History Immunization Up to Date: No - Psycho-Social/Smoking History Smoking Status: No Smoking History: Never smoked Have you smoked in the past 12 months: No Number of Cigarettes Smoked Daily: 0 - Substance Abuse Hx (Audit-C & DAST Scrn) How often the patient has a drink containing alcohol: Never Score: In Men: 4 or > Positive; In Women: 3 or > Positive: 0 Screen Result (Pos requires Nsg. Audit-10AR): Negative In the last yr the pt used illegal drug/Rx for NonMed reason: No Score: Yes response is considered Positive: 0 Screen Result (Positive result requires Nsg. DAST-10): Negative *Physical Exam - Vital Signs Last Vital Signs Temp Pulse Resp BP Pulse Ox 98.6 F 51 L 18 127/78 100 11/03/19 14:26 11/03/19 14:26 11/03/19 14:26 11/03/19 14:26 11/03/19 14:26 ED Treatment Course - LABORATORY CBC & Chemistry Diagram: 11/03/19 15:09 11/03/19 15:09 Medical Decision Making - Medical Decision Making MDM Pt is a 69 yo F with ESRD on dialysis (T/R/S, last session half completed on Saturday), DM, HTN, AFib on eliquis (last echo 07/19 showing LVEF 45%), hyper thyroidism, and HCV presenting to the [facility] ED after she was found to have an occluded fistula/catheter (LUE). DDX including but not limited to: Dialysis catheter clot or failure W/U: -CBC,CMP, coags, type & screen -EKG: NSR, sinus bradycardia, rate 55 bpm, MA interval 320, QT/QTc 454/434; no acute ST or T wave changes from previous EKG -NPO TX: - Dr. Oakes aware, pt scheduled for surgery at 5:30 pm. Vascular surgery to follow. - Dr. Villarreal aware but will not be able to make it in; will admit to hospitalist team 11/03/19 15:52 Pt admitted will get surgery in the evening. 11/03/19 16:08 Discharge - Discharge Information Problems reviewed: Yes Clinical Impression/Diagnosis: Dialysis catheter clot or failure Condition: Fair - Admission Yes - Follow up/Referral - Patient Discharge Instructions - Post Discharge Activity
[2019-11-03] MEDS ORDERED: HEPARIN NA (PORCINE) 5,000 UNITS/ML 1ML VIAL ONE (15:36)
--- NOTE | 2019-11-03 16:02 | CONSULT ---
<Tj Cedillo P - Last Filed: 11/03/19 16:25> - Consultation REQUESTING PROVIDER: Jonas Oakes - Vascular Surgery CONSULT REQUEST: We have been asked to surgically evaluate this patient for malfunctioning LUE AVF Hospitalist: Car SANTIAGO: Called to eval 69yo female with PMHx as noted below. Patient is well known to the Vascular Surgery Service. Patient went for HD today as scheduled and they were unable to dialyze her as her fistula is occluded. Patient called Dr. Oakes who sent patient directly to ED for admission as she will go to OR at 1730 hrs for suction thrombectomy. Last meal eaten was breakfast, nothing since. Denies n/v/f/c, CP, palpitations, SOB or MATHEWS. * Patient had Covid tested as out-patient recently and results are negative. Dr. Oakes has a copy and will bring in. PMHx: ESRD on HD (--Sat). 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), CHF, HTN, Hyperlipdemia, Asthma, PNA, Constipation, GERD, Hepatitis C, Anemia, Osteoarthritis, Diabetes Mellitus, Hyperthyroidism, Afib, Pulmonary HTN PSHx: 03/18/2019 Cysto, R RUG, ureteral stent placement (Elizabeth) 05/17/2018 LUE AV Graft (Champ) 03/07/2018 Venogram RUE AVF (Sandoval) 01/01/2018 Creation of left cephalic vein fistula (Sandoval) 11/27/2017 Permacath Insertion (Sandoval) 06/11/2017 Venogram, venoplasty LUE AVF (Sandoval) 11/14/2016 Venogram, DCB venoplasty of LUE AVF (Nick) 01/10/2016 Insertion of Permacath, creation of LUE AVF (Nick) Hysterectomy Appendectomy Colonoscopy Home Meds Diltiazem 30 mg PO BID Lexapro 5 mg PO daily Eliquis 5 mg PO daily Methimazole 5 mg PO daily Lipitor 40 mg PO daily Lisinopril 7.5 mg PO BID Metoprolol 50 mg PO daily Albuterol 2.5/Ipratropium 0.5 1 am NEB RTID Symbicort 2 puffs IN BID Lasix 80 mg PO daily Allergies: mushroom, nut, povidone-iodine, soap ROS: 12 systems reviewed and considered negative except for what's contained in the HPI. PE: GENERAL: A&O. NAD. HEAD: Normal with no signs of trauma. EYES: PERRL, sclera anicteric, conjunctiva clear. NECK: Normal ROM, supple without lymphadenopathy, JVD, or masses. LUNGS: Unlabored respirations on room air. HEART: RRR LUE: AVG without palpable thrill. Negative bruit. Brachial pulse palpated. Distal radial 1+. No edema/swelling. Hand warm. Cap refill <2 seconds. Last Vital Signs Temp Pulse Resp BP Pulse Ox 98.6 F 51 L 18 127/78 100 11/03/19 14:11/03/19 14:11/03/19 14:11/03/19 14:11/03/19 14:26 A/P: 69 yo female with clotted LUE AVG. -Covid negative -Admit to [facility] -Renal Consult -Going to OR tonight for LUE AVG suction thrombectomy -T&S, Coags, BMP, CBC -NPO -Gentle IVF hydration -Above plan discussed with Dr. Oakes and agrees. Problem List - Problems (1) Clotted renal dialysis AV graft Code(s): T82.868A - THROMBOSIS DUE TO VASCULAR PROSTH DEV/GRFT, INIT (2) Diabetes Code(s): E11.9 - TYPE 2 DIABETES MELLITUS WITHOUT COMPLICATIONS Qualifiers: Diabetes mellitus type: type 2 Diabetes mellitus complication status: with neurologic complications Diabetes mellitus complication detail: with autonomic neuropathy (3) End stage renal disease on dialysis Code(s): N18.6 - END STAGE RENAL DISEASE; Z99.2 - DEPENDENCE ON RENAL DIALYSIS (4) Hepatitis C Code(s): B19.20 - UNSPECIFIED VIRAL HEPATITIS C WITHOUT HEPATIC COMA (5) Hypertension Code(s): I10 - ESSENTIAL (PRIMARY) HYPERTENSION (6) Hyperthyroidism Code(s): E05.90 - THYROTOXICOSIS, UNSP WITHOUT THYROTOXIC CRISIS OR STORM Visit type - Case Type Case Type: ED Admission - Emergency Emergency Visit: Yes Care time: The patient presented to the Emergency Department on the above date and was hospitalized for further evaluation of their emergent condition. - New patient This patient is new to me today: Yes Date on this admission: 11/03/19 <Jonas Oakes - Last Filed: 11/03/19 18:33> - Consultation REQUESTING PROVIDER: CONSULT REQUEST: We have been asked to surgically evaluate this patient for (specify). PCP:Rico Zheng MD HISTORY OF PRESENT ILLNESS: PMHx: PSHx: Home Medications Medication Instructions Recorded Diltiazem [Cardizem -] 30 mg PO BID 07/10/16 Escitalopram Oxalate [Lexapro -] 5 mg PO DAILY 07/10/16 Apixaban [Eliquis] 5 mg PO BID 11/18/17 Methimazole [Tapazole] 5 mg PO DAILY 11/18/17 Atorvastatin Ca [Lipitor] 40 mg PO DAILY 03/14/19 Lisinopril 7.5 mg PO BID 03/14/19 Metoprolol Tartrate 50 mg PO DAILY 03/14/19 Albuterol 2.5/Ipratropium 0.5 1 amp NEB RTID amp 03/21/19 [Duoneb -] Budesonide/Formeterol Fumarate 2 puff IH BID inhaler 03/21/19 [SYMBICORT 160/4.5mcg -] Furosemide [Lasix -] 80 mg PO DAILY tablet 05/06/19 Allergies Allergy/AdvReac Type Severity Reaction Status Date / Time mushroom Allergy Severe Rash Verified 11/03/19 14:25 nut - unspecified [nut] Allergy Severe "HIVES,THROAT Verified 11/03/19 14:25 CLOSES" povidone-iodine Allergy Severe Rash Verified 11/03/19 14:25 [From Betadine] soap [From Betadine] Allergy Severe Rash Verified 11/03/19 14:25 Fish Containing Products AdvReac Severe Swelling Verified 11/03/19 14:25 REVIEW OF SYSTEMS: CONSTITUTIONAL: Absent: fever, chills, diaphoresis, generalized weakness, malaise, loss of appetite, weight change CARDIOVASCULAR: Absent: chest pain, syncope, palpitations, irregular heart rate, lightheadedness, peripheral edema RESPIRATORY: Absent: cough, shortness of breath, dyspnea with exertion, wheezing, stridor, hemoptysis GASTROINTESTINAL: Absent: abdominal pain, abdominal distension, nausea, vomiting, diarrhea, constipation, melena, hematochezia GENITOURINARY: Absent: dysuria, frequency, urgency, hesitancy, hematuria, flank pain, genital pain MUSCULOSKELETAL: Absent: myalgia, arthralgia, joint swelling, back pain, neck pain SKIN: Absent: rash, itching, pallor HEMATOLOGIC/IMMUNOLOGIC: Absent: easy bleeding, easy bruising, lymphadenopathy NEUROLOGIC: Absent: headache, focal weakness, paresthesias, dizziness, unsteady gait, seizure, mental status changes, bladder or bowel incontinence PSYCHIATRIC: Absent: anxiety, depression, suicidal or homicidal ideation, hallucinations. PHYSICAL EXAM: GENERAL: Awake, alert, and fully oriented, in no acute distress. HEAD: Normal with no signs of trauma. EYES: PERRL, sclera anicteric, conjunctiva clear. NECK: Normal ROM, supple without lymphadenopathy, JVD, or masses. LUNGS: Clear to auscultation bilat anteriorly. No wheezes, and no crackles. No accessory muscle use. HEART: Regular rate and rhythm. No murmurs ABDOMEN: Soft, nontender, not distended, normoactive bowel sounds, no guarding, no rebound, no masses. No organomegaly. MUSCULOSKELETAL: Normal ROM at all joints. No bony deformities or tenderness. No CVA tenderness. UPPER EXTREMITIES: 2+ pulses, warm, well-perfused. No cyanosis. Cap refill <2 seconds. No peripheral edema. LOWER EXTREMITIES: 2+ pulses, warm, well-perfused. No calf tenderness. No peripheral edema. NEUROLOGICAL: Normal speech, gait not observed. PSYCH: Cooperative. Good eye contact. Appropriate mood and affect. SKIN: Warm, dry, normal turgor, no rashes or lesions noted. Vital Signs Temperature 98.1 F 11/03/19 18:10 Pulse Rate 58 L 11/03/19 18:10 Respiratory Rate 20 11/03/19 18:10 Blood Pressure 126/69 11/03/19 18:10 O2 Sat by Pulse Oximetry (%) 100 11/03/19 18:10 Lab Results WBC 9.7 K/mm3 (4.0-10.0) 11/03/19 15:09 RBC 3.74 M/mm3 (3.60-5.2) 11/03/19 15:09 Hgb 10.4 GM/dL (10.7-15.3) L 11/03/19 15:09 Hct 31.9 % (32.4-45.2) L 11/03/19 15:09 MCV 85.3 fl (80-96) 11/03/19 15:09 MCHC 32.5 g/dl (32.0-36.0) 11/03/19 15:09 RDW 19.8 % (11.6-15.6) H 11/03/19 15:09 Plt Count 179 K/MM3 (134-434) 11/03/19 15:09 INR 1.74 (0.83-1.09) H 11/03/19 15:09 Sodium 128 mmol/L (136-145) L 11/03/19 15:09 Potassium 5.1 mmol/L (3.5-5.1) 11/03/19 15:09 Chloride 95 mmol/L (98-107) L 11/03/19 15:09 Carbon Dioxide 25 mmol/L (21-32) 11/03/19 15:09 Anion Gap 8 MMOL/L (8-16) 11/03/19 15:09 BUN 45.8 mg/dL (7-18) H 11/03/19 15:09 Creatinine 10.2 mg/dL (0.55-1.3) H* 11/03/19 15:09 Random Glucose 89 mg/dL (74-106) 11/03/19 15:09 Calcium 8.1 mg/dL (8.5-10.1) L 11/03/19 15:09 Blood Type O POSITIVE 11/03/19 15:09 Antibody Screen Positive 11/03/19 15:09 Plan for open thrombectomy of AV graft. LAst venogram showed large amount of adherent clot in graft which will need to be removed manually.
[2019-11-03 16:06] LABS: BASO % 0.7 % (0-2.0); EOS % 6.3 % (0-4.5); HEMATOCRIT 31.9 % (32.4-45.2); HEMOGLOBIN 10.4 GM/dL (10.7-15.3); LYMPH % 19.6 % (8-40); MCH 27.7 pg (25.7-33.7); MCHC 32.5 g/dl (32.0-36.0); MEAN CELL VOLUME 85.3 fl (80-96); MEAN PLT VOLUME 8.9 fl (7.5-11.1); MONO % 11.9 % (3.8-10.2); NEUT % 61.5 % (42.8-82.8); PLATELET COUNT 179 K/MM3 (134-434); RBC 3.74 M/mm3 (3.60-5.2); RDW 19.8 % (11.6-15.6); WHITE BLOOD COUNT 9.7 K/mm3 (4.0-10.0)
--- NOTE | 2019-11-03 16:18 | EKG ---
Test Reason : Blood Pressure : / mmHG Vent. Rate : 055 BPM Atrial Rate : 055 BPM P-R Int : 320 ms QRS Dur : 096 ms QT Int : 454 ms P-R-T Axes : -06 -22 109 degrees QTc Int : 434 ms SINUS BRADYCARDIA WITH 1ST DEGREE A-V BLOCK CANNOT RULE OUT ANTERIOR INFARCT (CITED ON OR BEFORE 13-MAR-2018) T WAVE ABNORMALITY, CONSIDER LATERAL ISCHEMIA ABNORMAL ECG WHEN COMPARED WITH ECG OF 05-MAY-2019 15:52, NO SIGNIFICANT CHANGE WAS FOUND Confirmed by MD JAI, ELPIDIO ([id number]) on 11/03/2019 4:17:59 PM Referred By: Confirmed By:ELPIDIO EVRGARA MD
--- NOTE | 2019-11-03 16:19 | PDOC ---
Documentation entered by Nehemias Valdivia SCRIBE, acting as scribe for Dung Boggs MD. Dung Boggs MD: This documentation has been prepared by the Shea castro Xhesika, SCRIBE, under my direction and personally reviewed by me in its entirety. I confirm that the documentation accurately reflects all work, treatment, procedures, and medical decision making performed by me. Attending Attestation - Resident Resident Name: Jami Walton - ED Attending Attestation I have performed the following: I have examined & evaluated the patient, The case was reviewed & discussed with the resident, I agree w/resident's findings & plan, Exceptions are as noted - HPI HPI: 11/03/19 15:33 The patient is a 69 YOF with h/o ESRD (HD T/W/Sa), Afib on eliqus (last echo 07/19 showing LVEF 45%), DM, HTN, Hyperthyroid, HCV, moderate pulmonary HTN who presents to the ED for admission for surgery. Pt was at dialysis today and was unable to get dialyzed because her fistula was occluded. They called Dr. Oakes, who told pt to go t the ED for admission for surgery at 5:30pm. Allergies: Per Nursing charts PCP: Rebecca Villarreal - Physicial Exam PE: 11/03/19 16:35 Vitals: Triage Vital signs reviewed General Appearance: No acute distress, well nourished well developed, Head: Atraumatic, Cardiac: Regular rate and rhythym, no murmurs, no rubs, no gallops, Lungs: Clear to auscultation bilateral, good air movement bilaterally, Abdomen: Soft, non distended, normal bowel sounds, non tender to palpation Extremities: No thrill palpated over left arm fistula Skin: Warm and dry, no rashes or lesions, no rash, no petechiae Psych: Normal mood, normal affect - Medical Decision Making 11/03/19 16:35 Patient sent to ED secondary to nonfunctioning fistula unable to obtain dialysis scheduled for fistula revision 5:30 PM Patient admitted to hospital for further management vascular surgery aware Discharge - Discharge Information Problems reviewed: Yes Clinical Impression/Diagnosis: Dialysis catheter clot or failure - Follow up/Referral Referrals: Rebecca Villarreal [Primary Care Provider] - - Patient Discharge Instructions - Post Discharge Activity
[2019-11-03 16:22] LABS: INR 1.74 (0.83-1.09); PROTHROMBIN TIME (PATIENT) 20.6 SEC (9.7-13.0)
[2019-11-03 16:25] LABS: ACTIVATED PTT 39.2 SECONDS (25.2-36.5)
--- NOTE | 2019-11-03 16:42 | HP ---
CHIEF COMPLAINT:occluded AV fisulta PCP: Dr. Villarreal HISTORY OF PRESENT ILLNESS: The patient is a 69 year old female, with a significant PMH of ESRD on dialysis (/), diabetes mellitus, hypertension, atrial fibrillation on Eliquis, hyperthyroidism, HCV, presents from HD due to an occluded AV fistula- patient to go to the [facility] ER course was notable for: (1)vitals wnl; labs pending (2) NPO; type and screen (3) Recent Travel: PAST MEDICAL HISTORY: see above PAST SURGICAL HISTORY: multiple AV grafts Social History: Smoking:denies Alcohol:denies Drugs: denies Allergies mushroom Allergy (Severe, Verified 11/03/19 14:25) Rash nut - unspecified [nut] Allergy (Severe, Verified 11/03/19 14:25) "HIVES,THROAT CLOSES" peanuts are ok povidone-iodine [From Betadine] Allergy (Severe, Verified 11/03/19 14:25) Rash soap [From Betadine] Allergy (Severe, Verified 11/03/19 14:25) Rash Fish Containing Products Adverse Reaction (Severe, Verified 11/03/19 14:25) Swelling HOME MEDICATIONS: Home Medications Medication Instructions Recorded Diltiazem [Cardizem -] 30 mg PO BID 07/10/16 Escitalopram Oxalate [Lexapro -] 5 mg PO DAILY 07/10/16 Apixaban [Eliquis] 5 mg PO BID 11/18/17 Methimazole [Tapazole] 5 mg PO DAILY 11/18/17 Atorvastatin Ca [Lipitor] 40 mg PO DAILY 03/14/19 Lisinopril 7.5 mg PO BID 03/14/19 Metoprolol Tartrate 50 mg PO DAILY 03/14/19 Albuterol 2.5/Ipratropium 0.5 1 amp NEB RTID amp 03/21/19 [Duoneb -] Budesonide/Formeterol Fumarate 2 puff IH BID inhaler 03/21/19 [SYMBICORT 160/4.5mcg -] Furosemide [Lasix -] 80 mg PO DAILY tablet 05/06/19 REVIEW OF SYSTEMS CONSTITUTIONAL: Absent: fever, chills, diaphoresis, generalized weakness, malaise, loss of appetite, weight change HEENT: Absent: rhinorrhea, nasal congestion, throat pain, throat swelling, difficulty swallowing, mouth swelling, ear pain, eye pain, visual changes CARDIOVASCULAR: Absent: chest pain, syncope, palpitations, irregular heart rate, lightheadedness, peripheral edema RESPIRATORY: Absent: cough, shortness of breath, dyspnea with exertion, orthopnea, wheezing, stridor, hemoptysis GASTROINTESTINAL: Absent: abdominal pain, abdominal distension, nausea, vomiting, diarrhea, constipation, melena, hematochezia GENITOURINARY: Absent: dysuria, frequency, urgency, hesitancy, hematuria, flank pain, genital pain MUSCULOSKELETAL: Absent: myalgia, arthralgia, joint swelling, back pain, neck pain SKIN: Absent: rash, itching, pallor HEMATOLOGIC/IMMUNOLOGIC: Absent: easy bleeding, easy bruising, lymphadenopathy, frequent infections ENDOCRINE: Absent: unexplained weight gain, unexplained weight loss, heat intolerance, cold intolerance NEUROLOGIC: Absent: headache, focal weakness or paresthesias, dizziness, unsteady gait, seizure, mental status changes, bladder or bowel incontinence PSYCHIATRIC: Absent: anxiety, depression, suicidal or homicidal ideation, hallucinations. PHYSICAL EXAMINATION Vital Signs - 24 hr 11/03/19 14:26 Temperature 98.6 F Pulse Rate 51 L Respiratory 18 Rate Blood Pressure 127/78 O2 Sat by Pulse 100 Oximetry (%) GENERAL: Awake, alert, and fully oriented, in no acute distress. EYES: PPEERLA: EOMI: no scleral icterus NECK: no JVD; no ylmphadenopathy LUNGS: CTA B/L anteriorly HEART: irregayurly irregular, normal S1 and S2 without murmur, rub or gallop. ABDOMEN: Soft NT ND +BS MUSCULOSKELETAL: Normal range of motion at all joints. No bony deformities or tenderness. No CVA tenderne EXTREMITIES: warm; well perfysed no clubbing/cyansos or edema NEUROLOGICAL: Cranial nerves II-XII intact. Normal speech. Normal gait. PSYCHIATRIC: Cooperative. Good eye contact. Appropriate mood and affect. SKIN: Warm, dry, normal turgor, no rashes or lesions noted, normal capillary refill. Laboratory Results - last 24 hr 11/03/19 11/03/19 15:09 15:09 WBC 9.7 RBC 3.74 Hgb 10.4 L Hct 31.9 L MCV 85.3 MCH 27.7 MCHC 32.5 RDW 19.8 H Plt Count 179 MPV 8.9 Absolute Neuts (auto) 5.9 Neutrophils % 61.5 Lymphocytes % 19.6 Monocytes % 11.9 H Eosinophils % 6.3 H Basophils % 0.7 Nucleated RBC % 0 PT with INR 20.60 H INR 1.74 H PTT (Actin FS) 39.2 H ASSESSMENT/PLAN: The patient is a 69 year old female, with a significant PMH of ESRD on dialysis (//), diabetes mellitus, hypertension, atrial fibrillation on Eliquis, hyperthyroidism, HCV, presents with an occluded AVF to go to the OR today #Occluded AVF patient to go to OR today uriel Rahman -NPO type and screen coags gentle hydration #ESRD hasnt had full HD in one week -dr leonela rodriguez was consulted -may need HD after thrombectomy -monitor electrolytes -monitor volume status #DM ISS ACHS BGMS ACHS #HTN will resume home meds after post-op monitor hemodynamics #afib resume elqiuis as per surgery monitor rate #Hyperthyroidism will resume methimazole post-op f/e/n not on fluids monitor electrolytes NPO for surgery Family Medical History Family History: Denies Problem List - Problem (1) Clotted renal dialysis AV graft Code(s): T82.868A - THROMBOSIS DUE TO VASCULAR PROSTH DEV/GRFT, INIT (2) ESRD (end stage renal disease) Code(s): N18.6 - END STAGE RENAL DISEASE Visit type - Medication Review Med list reviewed for High Risk Meds patients 65 and older: Yes - Emergency Visit Emergency Visit: Yes ED Registration Date: 11/03/19 Care time: The patient presented to the Emergency Department on the above date and was hospitalized for further evaluation of their emergent condition. - New Patient This patient is new to me today: Yes Date on this admission: 11/03/19 - Critical Care Critical Care patient: No ATTENDING PHYSICIAN STATEMENT I saw and evaluated the patient. I reviewed the resident's note and discussed the case with the resident. I agree with the resident's findings and plan as documented. SUBJECTIVE: OBJECTIVE: ASSESSMENT AND PLAN:
[2019-11-03 16:48] LABS: BILIRUBIN,TOTAL 0.6 mg/dL (0.2-1); BLOOD UREA NITROGEN 45.8 mg/dL (7-18); CALCIUM 8.1 mg/dL (8.5-10.1); POTASSIUM 5.1 mmol/L (3.5-5.1); TOT PROT 7.3 g/dl (6.4-8.2)
[2019-11-03 16:49] LABS: CREATININE 10.2 mg/dL (0.55-1.3)
[2019-11-03] MEDS ORDERED: MIDAZOLAM HCL 2 MG/2 ML SINGLE DOSE VIAL ONE (18:31)
[2019-11-03] MEDS ORDERED: LIDOCAINE HCL 1%, 10 MG/ML (20ML VIAL) ONE (18:57)
[2019-11-03] MEDS ORDERED: LIDOCAINE HCL 1%, 10 MG/ML (20ML VIAL) NR ONE (19:20)
[2019-11-03] MEDS ORDERED: POVIDONE-IODINE OINTMENT 10% - 28.4 GM TUBE ONE (19:52)
--- NOTE | 2019-11-03 19:57 | OP ---
Operative Note - Note: Operative Date: 11/03/19 Pre-Operative Diagnosis: Thrombosed AV graft Operation: Open thrombectomy AV graft. Venogram Findings: Thrombosed graft containing fresh and chronic thrombus patent axillary and subclavian vein. Innominate vein stent without severe stenosis. Post-Operative Diagnosis: Same as Pre-op Surgeon: Jonas Oakes Anesthesiologist/RESEARCH AGRICULTURAL ENGINEER: Emory Shen Anesthesia: MAC Estimated Blood Loss (mls): 30
[2019-11-03] MEDS ORDERED: SODIUM CHLORIDE 1,000 ML IV SCH (21:15)
[2019-11-03] MEDS ORDERED: APIXABAN 5 MG TABLET PO SCH (22:00)
[2019-11-03] MEDS ORDERED: LISINOPRIL 5 MG TABLET (FP) PO SCH (22:00)
[2019-11-03] MEDS ORDERED: dilTIAZem HCL 30 MG TABLET PO SCH (22:00)
[2019-11-03] MEDS: LISINOPRIL 5 MG TABLET (FP) PO SCH (23:03)
[2019-11-03] MEDS: dilTIAZem HCL 30 MG TABLET PO SCH (23:04)
[2019-11-03] MEDS: APIXABAN 5 MG TABLET PO SCH (23:05)
--- NOTE | 2019-11-04 08:31 | PN ---
Teaching Attending Note Name of Resident: Zarina Downs ATTENDING PHYSICIAN STATEMENT I saw and evaluated the patient. I reviewed the resident's note and discussed the case with the resident. I agree with the resident's findings and plan as documented. SUBJECTIVE: Patient seen and examined at bedside, admitted for OR procedure for revision of L AV fistula. Denies complaints, feels at baseline. OBJECTIVE: GA comfortable, AAox3, NAD HEENT NC/AT, EOMI, no JVD Chest CTAB, no crackles or wheezing CVS Irregularly irregular, regular rate Abd obese, soft, NT, BS+ Ext no LE edema, no calf tenderness, LUE fistula w/o palpable thrill Vital Signs - 24 hr 11/03/19 11/03/19 11/03/19 14:26 18:10 20:02 Temperature 98.6 F 98.1 F 98.4 F Pulse Rate 51 L 58 L Pulse Rate [ 58 L Apical] Respiratory 18 20 14 Rate Blood Pressure 127/78 152/83 Blood Pressure 126/69 [Right Arm] O2 Sat by Pulse 100 100 100 Oximetry (%) 11/03/19 11/03/19 11/03/19 20:15 20:30 20:45 Temperature Pulse Rate 59 L 60 59 L Pulse Rate [ Apical] Respiratory 16 16 16 Rate Blood Pressure 142/88 148/88 133/64 Blood Pressure [Right Arm] O2 Sat by Pulse 98 100 99 Oximetry (%) 11/03/19 11/03/19 11/03/19 21:00 21:46 22:03 Temperature 98.4 F 98.8 F 98.8 F Pulse Rate 62 60 60 Pulse Rate [ Apical] Respiratory 16 16 17 Rate Blood Pressure 130/67 149/78 149/78 Blood Pressure [Right Arm] O2 Sat by Pulse 99 99 99 Oximetry (%) 11/04/19 11/04/19 11/04/19 02:00 06:00 06:54 Temperature 98 F 98.2 F Pulse Rate 59 L 61 Pulse Rate [ Apical] Respiratory 18 18 Rate Blood Pressure 127/47 L 136/66 Blood Pressure [Right Arm] O2 Sat by Pulse 100 100 100 Oximetry (%) Laboratory Results - last 24 hr 11/03/19 11/03/19 11/03/19 15:09 15:09 15:09 WBC 9.7 RBC 3.74 Hgb 10.4 L Hct 31.9 L MCV 85.3 MCH 27.7 MCHC 32.5 RDW 19.8 H Plt Count 179 MPV 8.9 Absolute Neuts (auto) 5.9 Neutrophils % 61.5 Lymphocytes % 19.6 Monocytes % 11.9 H Eosinophils % 6.3 H Basophils % 0.7 Nucleated RBC % 0 PT with INR 20.60 H INR 1.74 H PTT (Actin FS) 39.2 H Sodium 128 L Potassium 5.1 Chloride 95 L Carbon Dioxide 25 Anion Gap 8 BUN 45.8 H Creatinine 10.2 H* Est GFR (CKD-EPI)AfAm 4.02 Est GFR (CKD-EPI)NonAf 3.47 POC Glucometer Random Glucose 89 Calcium 8.1 L Total Bilirubin 0.6 AST 24 ALT 31 Alkaline Phosphatase 178 H Creatine Kinase 85 Troponin I 0.15 H Total Protein 7.3 Albumin 3.0 L Blood Type Antibody Screen Antibody Identification Antigen Identification 11/03/19 11/03/19 15:09 21:45 WBC RBC Hgb Hct MCV MCH MCHC RDW Plt Count MPV Absolute Neuts (auto) Neutrophils % Lymphocytes % Monocytes % Eosinophils % Basophils % Nucleated RBC % PT with INR INR PTT (Actin FS) Sodium Potassium Chloride Carbon Dioxide Anion Gap BUN Creatinine Est GFR (CKD-EPI)AfAm Est GFR (CKD-EPI)NonAf POC Glucometer 85 Random Glucose Calcium Total Bilirubin AST ALT Alkaline Phosphatase Creatine Kinase Troponin I Total Protein Albumin Blood Type O POSITIVE Antibody Screen Positive Antibody Identification Anti-jkb Antigen Identification No Result Required. Home Medications Medication Instructions Recorded Diltiazem [Cardizem -] 30 mg PO BID 07/10/16 Escitalopram Oxalate [Lexapro -] 5 mg PO DAILY 07/10/16 Apixaban [Eliquis] 5 mg PO BID 11/18/17 Methimazole [Tapazole] 5 mg PO DAILY 11/18/17 Atorvastatin Ca [Lipitor] 40 mg PO DAILY 03/14/19 Lisinopril 7.5 mg PO BID 03/14/19 Metoprolol Tartrate 50 mg PO DAILY 03/14/19 Albuterol 2.5/Ipratropium 0.5 1 amp NEB RTID amp 03/21/19 [Duoneb -] Budesonide/Formeterol Fumarate 2 puff IH BID inhaler 03/21/19 [SYMBICORT 160/4.5mcg -] Furosemide [Lasix -] 80 mg PO DAILY tablet 05/06/19 Current Medications Generic Name Dose Route Start Last Admin Trade Name Danny PRN Reason Stop Dose Admin Apixaban 5 mg 11/03/19 22:00 11/03/19 23:05 Eliquis - PO 5 mg BID EMELINA Administration Diltiazem HCl 30 mg 11/03/19 22:00 11/03/19 23:04 Cardizem - PO 30 mg BID EMELINA Administration Fentanyl 25 mcg 11/03/19 21:10 Sublimaze Injection - IVPUSH [id number] PRN PAIN-PACU ORDER X 4 DOSES ONLY Furosemide 80 mg 11/04/19 10:00 Lasix - PO DAILY EMELINA Sodium Chloride 1,000 mls @ 42 mls/hr 11/03/19 21:15 11/03/19 23:01 Normal Saline - IV 42 mls/hr ASDIR EMELINA Administration Lisinopril 7.5 mg 11/03/19 22:00 11/03/19 23:03 Prinivil PO 7.5 mg BID EMELINA Administration Methimazole 5 mg 11/04/19 10:00 Tapazole - PO DAILY EMELINA Metoprolol Tartrate 50 mg 11/04/19 10:00 Lopressor - PO DAILY EMELINA Oxycodone/Acetaminophen 1 combo 11/03/19 20:27 Percocet 5/325 - PO Q4H PRN PAIN LEVEL 1-5 ASSESSMENT AND PLAN: 69 F Clotted LUE AV fistula needing repair ESRD on HD last session last week HTN HLD Afib on AC T2DM Obesity Hyperthyroidism COPD/Asthma Plan: Not in acute asthma/COPD exacerbation, Duonebs PRN for SOB T/S, pRBC transfusion prn to keep Hb >7.0 Cont. BP meds Hold statin for tonight Rest of management per Vascular team, patient may be DC in AM if uneventful
[2019-11-04] MEDS ORDERED: SODIUM CHLORIDE 250 ML IV PRN ×2 (09:08→19:11)
[2019-11-04] MEDS ORDERED: PT OWN MED DRAWER 7, Y5N ONE ×2 (09:30→21:48)
[2019-11-04] MEDS: METHIMAZOLE 5 MG TABLET (FP) PO SCH (09:31)
[2019-11-04] MEDS: FUROSEMIDE 40 MG TABLET (FP) PO SCH (09:31)
[2019-11-04] MEDS: dilTIAZem HCL 30 MG TABLET PO SCH ×2 (09:32→22:11)
[2019-11-04] MEDS ORDERED: FUROSEMIDE 40 MG TABLET (FP) PO SCH (10:00)
[2019-11-04] MEDS ORDERED: METHIMAZOLE 5 MG TABLET (FP) PO SCH (10:00)
[2019-11-04] MEDS ORDERED: METOPROLOL TARTRATE 50 MG TABLET (FP) PO SCH (10:00)
--- NOTE | 2019-11-04 12:09 | PN ---
Progress Note, Physician Chief Complaint: events noted [pt admitted for AVF intervention and dyalisis LUE AVF dressed some bleeding noted but pt has no c/o wants to go home - awaiting HD on eliquis - Current Medication List Current Medications: Active Medications Apixaban (Eliquis -) 5 mg PO BID [facility] Last Admin: 11/03/19 23:05 Dose: 5 mg Documented by: Diltiazem HCl (Cardizem -) 30 mg PO BID [facility] Last Admin: 11/04/19 09:32 Dose: 30 mg Documented by: Fentanyl (Sublimaze Injection -) 25 mcg IVPUSH [id number] PRN PRN Reason: PAIN-PACU ORDER X 4 DOSES ONLY Furosemide (Lasix -) 80 mg PO DAILY [facility] Last Admin: 11/04/19 09:31 Dose: 80 mg Documented by: Sodium Chloride (Normal Saline -) 250 mls @ 3,000 mls/hr IV PRN PRN PRN Reason: Hypotension during Dialysis Lisinopril (Prinivil) 7.5 mg PO BID [facility] Last Admin: 11/03/19 23:03 Dose: 7.5 mg Documented by: Methimazole (Tapazole -) 5 mg PO DAILY [facility] Last Admin: 11/04/19 09:31 Dose: 5 mg Documented by: Metoprolol Tartrate (Lopressor -) 50 mg PO DAILY [facility] Oxycodone/Acetaminophen (Percocet 5/325 -) 1 combo PO Q4H PRN PRN Reason: PAIN LEVEL 1-5 - Objective Vital Signs: Vital Signs Temperature 98.2 F 11/04/19 10:00 Pulse Rate 55 L 11/04/19 10:00 Respiratory Rate 18 11/04/19 10:00 Blood Pressure 123/60 11/04/19 10:00 O2 Sat by Pulse Oximetry (%) 98 11/04/19 10:00 Constitutional: Yes: No Distress, Calm Eyes: Yes: Conjunctiva Clear HENT: Yes: Atraumatic Neck: Yes: Supple Cardiovascular: Yes: Regular Rate and Rhythm Respiratory: Yes: CTA Bilaterally Gastrointestinal: Yes: Soft. No: Distention, Tenderness Musculoskeletal: No: Joint Stiffness, Joint Swelling Extremities: Yes: Other (LUE AVF dressed no active bleeding now). No: Cold, Cool, Cyanosis Edema: No Integumentary: No: Rash Neurological: Yes: Alert, Oriented ...Motor Strength: WNL Psychiatric: Yes: Alert, Oriented. No: Agitated, Suicidal Ideation Labs: CBC, BMP 11/03/19 15:09 11/03/19 15:09 INR, PTT INR 1.74 (0.83-1.09) H 11/03/19 15:09 - ....Imaging Other: Report Reviewed Assessment/Plan 69 YOF ASHD HTN PAFib ESRD / HD admitted with AVF malfuntion s/p surgery HD today then can be DC if OK with renal and surgery dw pt f/u in office in 1-2 weeks
--- NOTE | 2019-11-04 15:39 | PN ---
Progress Note (short form) - Note Progress Note: Surgery POD #1 Open thrombectomy AV graft. Venogram. Patient seen and examined on AM rounds. Nursing reports no overnight events. Patient denies any CP, SOB, N/V, fever or chills. She is tolerating her diet. Vital Signs Temp 98.8 F 11/04/19 14:00 Pulse 59 L 11/04/19 14:00 Resp 18 11/04/19 14:00 BP 145/73 11/04/19 14:00 Pulse Ox 100 11/04/19 14:00 Intake & Output 11/03/19 11/04/19 11/04/19 23:59 11:59 23:59 Intake Total 700 670 Output Total 30 Balance 670 670 Weight 232 lb 8 oz 235 lb 12.8 oz Intake: IV 300 420 Normal Saline - 1,000 ml 420 @ 42 mls/hr IV ASDIR EMELINA Rx#:[id number] Oral 400 250 Output: Estimated Blood Loss 30 Other: Voiding Method Toilet Toilet Toilet # Unmeasured Voids Void 0 1 1 Bowel Movement No No No Height 5 ft 7 in Body Mass Index (BMI) 36.3 Weight Measurement Method Built in Bedscale Built in Bedscale Weight Measurement Method Est/Stated by Patient PE: A&Ox3, NAD Unlabored resp on RA Left Upper extremity-dressing saturated with mild oozing from the incision with paradise insitu, Surrounding area with diffuse edema and fullness at medial aspect consistent with a hematoma. Palpable thrill over fistula. fingers and hand warm and well perfused with +2 radial pulse. moving all digits without limitation. Problem List - Problems (1) Clotted renal dialysis AV graft Assessment/Plan: POD #1 patient doing well with hematoma at site. 1) Dialysis today per renal 2) d/c planning for home after dialysis if hematoma stable Evaluation and plan discussed with Dr Oakes Code(s): T82.868A - THROMBOSIS DUE TO VASCULAR PROSTH DEV/GRFT, INIT
[2019-11-04 16:20] VITALS: BMI 36.9
--- NOTE | 2019-11-04 16:20 | CON.NEP ---
Consult Consult Specialty:: Nephrology Referred by:: Medicine Reason for Consultation:: ESRD on HD with clotted AVF - History of Present Illness Chief Complaint: Clotted AVF History of Present Illness: This is a 69 year old woman with history of ESRD on HD (TTS), DM, Hypertension, AFib on Eliquis, hyperthyroidism, HCV presented with clotted AVF now s/p thromectomy. Seen and examined at the bedside. Mrs. Correia offers no acute complaints. She denies any sob, chest pain, abdominal pain, N/V/D, fever or chills. s/p thrombectomy last night followed by prolonged bleeding form her access site. She is awaiting dialysis today. 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) Cardio/Vascular: Yes: CHF, HTN, Hyperlipdemia Pulmonary: Yes: Asthma, Pneumonia, Other (ILD) Gastrointestinal: Yes: Constipation, GERD Hepatobiliary: Yes: Hepatitis C Renal/: Yes: Renal Inusuff ...: No Musculoskeletal: Yes: Osteoarthritis Endocrine: Yes: Diabetes Mellitus, Hyperthyroidism, Other - Past Surgical History Past Surgical History: Yes: , Hysterectomy, Appendectomy, Colonoscopy - Alcohol/Substance Use Hx Alcohol Use: No History of Substance Use: reports: None - Smoking History Smoking history: Never smoked Have you smoked in the past 12 months: No Aproximately how many cigarettes per day: 0 - Social History Usual Living Arrangement: Alone () ADL: Independent History of Recent Travel: No Home Medications - Allergies Allergies/Adverse Reactions: Allergies Allergy/AdvReac Type Severity Reaction Status Date / Time mushroom Allergy Severe Rash Verified 11/03/19 14:25 nut - unspecified [nut] Allergy Severe "HIVES,THROAT Verified 11/03/19 14:25 CLOSES" povidone-iodine Allergy Severe Rash Verified 11/03/19 14:25 [From Betadine] soap [From Betadine] Allergy Severe Rash Verified 11/03/19 14:25 Fish Containing Products AdvReac Severe Swelling Verified 11/03/19 14:25 - Home Medications Home Medications: Ambulatory Orders Diltiazem [Cardizem -] 30 mg PO BID 07/10/16 Escitalopram Oxalate [Lexapro -] 5 mg PO DAILY 07/10/16 Apixaban [Eliquis] 5 mg PO BID 11/18/17 Methimazole [Tapazole] 5 mg PO DAILY 11/18/17 Atorvastatin Ca [Lipitor] 40 mg PO DAILY 03/14/19 Lisinopril 7.5 mg PO BID 03/14/19 Metoprolol Tartrate 50 mg PO DAILY 03/14/19 Albuterol 2.5/Ipratropium 0.5 [Duoneb -] 1 amp NEB RTID amp 03/21/19 Budesonide/Formeterol Fumarate [SYMBICORT 160/4.5mcg -] 2 puff IH BID inhaler 03/21/19 Furosemide [Lasix -] 80 mg PO DAILY tablet 05/06/19 Review of Systems - Review of Systems Constitutional: reports: No Symptoms Eyes: reports: No Symptoms HENT: reports: No Symptoms Neck: reports: No Symptoms Cardiovascular: reports: No Symptoms Respiratory: reports: No Symptoms Gastrointestinal: reports: No Symptoms Genitourinary: reports: No Symptoms Musculoskeletal: reports: No Symptoms Integumentary: reports: No Symptoms Neurological: reports: No Symptoms Endocrine: reports: No Symptoms Nephrology Consult - Height Height: 5 ft 7 in - Weight Weight: 106.957 kg - BMI Body Mass Index (BMI): 36.9 - Lab Results CBC,BMP: CBC, BMP 11/03/19 15:09 11/03/19 15:09 Anion Gap: Anion Gap Anion Gap 8 MMOL/L (8-16) 11/03/19 15:09 - Physical Examination Vital Signs: Vital Signs Temperature 98.8 F 11/04/19 14:00 Pulse Rate 59 L 11/04/19 14:00 Respiratory Rate 18 11/04/19 14:00 Blood Pressure 145/73 11/04/19 14:00 O2 Sat by Pulse Oximetry (%) 100 11/04/19 14:00 Constitutional: Yes: Well Nourished, No Distress, Calm HENT: Yes: Atraumatic, Normocephalic Neck: Yes: Supple Cardiovascular: Yes: Regular Rate and Rhythm Respiratory: Yes: Regular, CTA Bilaterally Gastrointestinal: Yes: Soft. No: Tenderness Access for Hemodialysis: AV Fistula Extremities: No: Cyanosis Edema: No Neurological: Yes: Alert, Oriented Assessment/Plan 69 year old woman with history of ESRD on HD (TTS), DM, Hypertension, AFib on Eliquis, hyperthyroidism, HCV presented with clotted AVF now s/p thromectomy. 1. AVF stenosis/thrombosis 2. ESRD on HD 3. Prolonged bleeding from AVF site 4. Hypertension 5. Afib on Eliquis s/p thrombectomy by vascular surgery yesterday. Access now with good flow. For dialysis today using AVF site. If access works well and there is no prolonged bleeding pt can be discharged and resume regular TTS dialysis schedule tomorrow as an outpatient. Continue Eliquis for Afib at present dose. Case discussed with Dr. Villarreal. Thank you Jon Paz DO
[2019-11-04] MEDS: APIXABAN 5 MG TABLET PO SCH ×2 (16:52→22:11)
[2019-11-04] MEDS: LISINOPRIL 5 MG TABLET (FP) PO SCH ×2 (17:43→22:12)
[2019-11-04] MEDS: METOPROLOL TARTRATE 50 MG TABLET (FP) PO SCH (17:43)
[2019-11-04 21:34] LABS: BASO % 0.9 % (0-2.0); EOS % 5.8 % (0-4.5); HEMATOCRIT 31.3 % (32.4-45.2); HEMOGLOBIN 10.1 GM/dL (10.7-15.3); MCHC 32.2 g/dl (32.0-36.0); MEAN CELL VOLUME 83.7 fl (80-96); MEAN PLT VOLUME 9.7 fl (7.5-11.1); MONO % 11.4 % (3.8-10.2); NEUT % 64.9 % (42.8-82.8); PLATELET COUNT 171 K/MM3 (134-434); RBC 3.74 M/mm3 (3.60-5.2); RDW 19.7 % (11.6-15.6); WHITE BLOOD COUNT 10.1 K/mm3 (4.0-10.0)
[2019-11-04 22:13] LABS: ALBUMIN 2.8 g/dl (3.4-5.0); BLOOD UREA NITROGEN 51.8 mg/dL (7-18); CALCIUM 7.9 mg/dL (8.5-10.1); MAGNESIUM 2.5 mg/dL (1.8-2.4); PHOSPHOROUS 5.8 mg/dL (2.5-4.9); POTASSIUM 5.3 mmol/L (3.5-5.1); TOT PROT 6.8 g/dl (6.4-8.2)
[2019-11-04 22:14] LABS: BILIRUBIN,TOTAL 0.8 mg/dL (0.2-1)
[2019-11-04 23:12] LABS: CREATININE 10.7 mg/dL (0.55-1.3)
--- NOTE | 2019-11-05 08:16 | DS ---
Physical Examination Vital Signs: Vital Signs Temperature 98.2 F 11/05/19 06:00 Pulse Rate 56 L 11/05/19 06:00 Respiratory Rate 20 11/05/19 06:00 Blood Pressure 160/64 11/05/19 06:00 O2 Sat by Pulse Oximetry (%) 100 11/05/19 06:00 Findings/Remarks: in bed had HD last night wants to go home, was seen by surgery no bleeding from AVF OK to go home; d/w renal dr Paz OK to DC home - eliquis dose verified with him for pts on HD given her age current dose is OK Constitutional: Yes: No Distress, Calm Eyes: Yes: Conjunctiva Clear HENT: Yes: Atraumatic Neck: Yes: Supple Cardiovascular: Yes: Regular Rate and Rhythm Respiratory: Yes: CTA Bilaterally Gastrointestinal: Yes: Soft. No: Tenderness Renal/: No: Hematuria Musculoskeletal: No: Joint Stiffness, Joint Swelling Extremities: Yes: Other (LUE AVF dressed no bleed). No: Cold, Cool, Cyanosis Edema: No Integumentary: No: Rash, Venous Stasis Changes Neurological: Yes: Alert, Oriented ...Motor Strength: WNL Psychiatric: Yes: Alert, Oriented. No: Agitated, Suicidal Ideation Labs: CBC, BMP 11/04/19 18:30 11/04/19 18:30 Discharge Summary Problems reviewed: Yes Reason For Visit: ARTERIOVENOUS FISTULA OCCLUSION Current Active Problems Clotted renal dialysis AV graft (Acute) Dialysis catheter clot or failure (Acute) Procedures: Principal: admitted for L A VF malfunction Other Procedures: seen by vascular sx dr Oakes / surgical intervention Hospital Course: also seen by renal; had HD after the L AVF thrombectomy tolerated OK DC home f/iu as advised; due for health maintenance to be done out pt [employer] GI pap mammogram colonoscopy d/w pt Condition: Fair - Instructions Diet, Activity, Other Instructions: f/u PCP, endocrine and cardiology in 1-2 weeks; f/u vascular surgery as advised; HD / renal; due for HM pap [employer] mammogram, GI f/u d.w pt to do them soon outpt Referrals: Enedelia Deleon MD [Staff Physician] - Rebecca Villarreal [Primary Care Provider] - Garfield Arriaza MD [Staff Physician] - Jon Paz MD [Staff Physician] - Jonas Oakes MD [Staff Physician] - 1 Week Katherine Natarajan MD [Staff Physician] - Pavel Almaraz DO [Staff Physician] - Disposition: HOME - Home Medications Comprehensive Discharge Medication List: Ambulatory Orders Diltiazem [Cardizem -] 30 mg PO BID 07/10/16 Escitalopram Oxalate [Lexapro -] 5 mg PO DAILY 07/10/16 Apixaban [Eliquis] 5 mg PO BID 11/18/17 Methimazole [Tapazole] 5 mg PO DAILY 11/18/17 Atorvastatin Ca [Lipitor] 40 mg PO DAILY 03/14/19 Lisinopril 7.5 mg PO BID 03/14/19 Metoprolol Tartrate 50 mg PO DAILY 03/14/19 Albuterol 2.5/Ipratropium 0.5 [Duoneb -] 1 amp NEB RTID amp 03/21/19 Budesonide/Formeterol Fumarate [SYMBICORT 160/4.5mcg -] 2 puff IH BID inhaler 03/21/19 Furosemide [Lasix -] 80 mg PO DAILY tablet 05/06/19
--- NOTE | 2019-11-05 08:27 | PN ---
Progress Note (short form) - Note Progress Note: Surgery POD #2 Open thrombectomy AV graft. Venogram. Patient completed a normal dialysis session late last night. Nursing reports no issues overnight and dressing has remained dry since dialysis. Patient states she feels well and wants to go home. She denies any CP, SOB, N/V, fever or chills. She is tolerating her diet and voiding. Vital Signs Temp 98.5 F 11/05/19 11:06 Pulse 63 11/05/19 11:06 Resp 22 H 11/05/19 11:06 BP 146/67 11/05/19 11:06 Pulse Ox 98 11/05/19 11:06 Intake & Output 11/04/19 11/04/19 11/05/19 11:59 23:59 11:59 Intake Total 670 475 0 Output Total 4602 Balance 670 -4127 0 Weight 235 lb 12.8 oz 235 lb 12.8 oz 240 lb 2 oz Intake: IV 420 Normal Saline - 1,000 ml 420 @ 42 mls/hr IV ASDIR EMELINA Rx#:[id number] Oral 250 475 0 Output: Urine 1 Void 1 Fluid Removed, 4601 Hemodialysis Other: Voiding Method Toilet Toilet Toilet # Unmeasured Voids Void 1 0 1 Bowel Movement No Yes No # Bowel Movements 1 Height 5 ft 7 in Body Mass Index (BMI) 36.9 Weight Measurement Method Built in [facility] CBC, BMP 11/04/19 18:30 11/04/19 18:30 PE: A&Ox3, NAD Unlabored resp on RA Left Upper extremity incision c/d/i with no evidence of bleeding or oozing from the incision with paradise insitu, Surrounding area with no erythema, mild edema with less fullness at medial aspect consistent with resolving hematoma. Palpable thrill over fistula. fingers and hand warm and well perfused. Moving all digits without limitation. Problem List - Problems (1) Clotted renal dialysis AV graft Assessment/Plan: POD #2 patient doing well with resolving hematoma, and fistula working. -Ok per vascular surgery to DC home today. -Resume all home meds -f/u with renal -f/u with Dr Oakes as outpatient. Evaluation and plan discussed with Dr Oakes. Code(s): T82.868A - THROMBOSIS DUE TO VASCULAR PROSTH DEV/GRFT, INIT
[2019-11-05] MEDS ORDERED: PT OWN MED DRAWER 7, Y5N ONE (09:52)
[2019-11-05] MEDS: FUROSEMIDE 40 MG TABLET (FP) PO SCH (10:30)
[2019-11-05] MEDS: dilTIAZem HCL 30 MG TABLET PO SCH (10:30)
[2019-11-05] MEDS: APIXABAN 5 MG TABLET PO SCH (10:30)
[2019-11-05] MEDS: METOPROLOL TARTRATE 50 MG TABLET (FP) PO SCH (10:30)
[2019-11-05] MEDS: LISINOPRIL 5 MG TABLET (FP) PO SCH (10:31)
[2019-11-05] MEDS: METHIMAZOLE 5 MG TABLET (FP) PO SCH (10:31)
[2019-11-05 11:07] VITALS: BP 146/67; PULSE 63; TEMP 98.5
--- NOTE | 2019-11-05 16:12 | PATH ---
Surgical Pathology Report Patient Name: JERZY NEVAREZ Med. Rec. #: [id number] /Age/Gender: 1950 (Age: 69) / F Account: [id number] Location: [address] [place] [address]/[facility] Taken: 11/03/2019 Received: 11/04/2019 Reported: 11/05/2019 Physicians: Jonas Oakes M.D. Specimen(s) Received LEFT AVG CLOTS Clinical History Thrombosis of left AVG Final Diagnosis AVG CLOTS, LEFT, OPEN THROMBECTOMY: BLOOD/FIBRIN CLOT Electronically Signed Mildred Patel M.D. Gross Description Received in formalin labeled "left AVG clots," is a 2.8 x 1.8 x 0.5 cm aggregate of red-brown blood clot. 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 /11/04/2019 saudi/11/04/2019
--- NOTE | 2019-11-10 12:14 | OP ---
DATE OF OPERATION: 11/03/2019 SURGEON: Jonas Esposito MD PROCEDURE: Open thrombectomy of left arm arteriovenous graft with venogram. PREOPERATIVE DIAGNOSIS: Thrombosed arteriovenous graft. POSTOPERATIVE DIAGNOSIS: Thrombosed arteriovenous graft. ANESTHESIA: Fractional. ANESTHESIOLOGIST: Emory Shen MD OPERATIVE FINDINGS: The left upper arm AV graft contained fresh and chronic thrombus. Venogram showed a patent axillary and subclavian vein. A stent in the innominate vein appeared patent without severe stenosis. OPERATIVE PROCEDURE: Following routine patient identification with side and site verification, intravenous sedation was established. The left arm was prepped with ChloraPrep. Timeout was performed. Lidocaine 1% was infiltrated in the skin over the venous limb of the AV graft and a skin incision made. It was carried through subcutaneous tissues using cautery for hemostasis. The patient was heparinized. The graft was encircled with vessel loops. It was opened with a transverse venotomy. A number 3 Anne-Marie catheter was passed proximally through the venous limb and withdrawn, with removal of thrombus and return of venous backbleeding. A sheath was placed into the graft and venography performed, with the above-noted findings. The graft was filled with heparin solution and was re-occluded. A thrombectomy of the arterial limb was then performed with the Anne-Marie catheter. In addition, a small curette was used to remove chronic thrombus from within the AV graft. Arterial inflow was restored. A sheath was placed and a retrograde arteriogram performed, which showed a patent anastomosis with no significant stenosis. The limb was filled with heparin saline solution and was occluded with a vascular clamp. The graft incision was closed with a running suture of 6-0 Prolene. Clamps were removed and there was good pulse in the graft. Bleeding from the suture line was controlled with Surgicel. Hemostasis was adequate. The wound was closed with interrupted suture of 3-0 Vicryl and skin paradise. A sterile dressing was applied and the patient was taken to the recovery room in stable condition. JONAS ESPOSITO M.D. [id number]
== END 2019-11-05 12:10 | disposition home or self-care (01) | DRG 252 ==
LOC: JER 14:24 → JERBED 14:45 → J2C 19:05 → J5S 21:21
PROVIDERS: ATTEND Internal Medicine
PROC: 05C80ZZ Extirpation of Matter from Left Axillary Vein, Open Approach (ICD-10-PCS; principal; 2019-11-03 19:14)
PROC: 5A1D70Z Performance of Urinary Filtration, Intermittent, Less than 6 Hours Per Day (ICD-10-PCS; 2019-11-04)
DX: T82.868A Thrombosis due to vascular prosthetic devices, implants and grafts, initial encounter (principal); N18.6 End stage renal disease; I69.354 Hemiplegia and hemiparesis following cerebral infarction affecting left non-dominant side; I13.2 Hypertensive heart and chronic kidney disease with heart failure and with stage 5 chronic kidney disease, or end stage renal disease; I97.638 Postprocedural hematoma of a circulatory system organ or structure following other circulatory system procedure; E11.22 Type 2 diabetes mellitus with diabetic chronic kidney disease; Z99.2 Dependence on renal dialysis; I48.91 Unspecified atrial fibrillation; Z79.01 Long term (current) use of anticoagulants; E05.90 Thyrotoxicosis, unspecified without thyrotoxic crisis or storm; I27.20 Pulmonary hypertension, unspecified; I50.9 Heart failure, unspecified; K21.9 Gastro-esophageal reflux disease without esophagitis; D64.9 Anemia, unspecified; E78.5 Hyperlipidemia, unspecified; E66.9 Obesity, unspecified; B19.20 Unspecified viral hepatitis C without hepatic coma; Y83.8 Other surgical procedures as the cause of abnormal reaction of the patient, or of later complication, without mention of misadventure at the time of the procedure; J44.9 Chronic obstructive pulmonary disease, unspecified; Z68.37 Body mass index [BMI] 37.0-37.9, adult
CPT/HCPCS: 36415; 71045-TC-FY; 80053; 82550; 82962; 83735; 84100; 84484; 85025; 85610; 85730; 86803; 86850; 86870; 86900; 86901; 86902; 87340; 88304-TC; 93005; 93010; 94760; 99285-25; J1644

== ENCOUNTER 2019-11-10 10:18 | Inpatient (IN) | payer OTHER ==
[2019-11-10 10:27] VITALS: TEMP 98.7; BMI 35.4
--- NOTE | 2019-11-10 10:35 | PDOC ---
History of Present Illness - General Chief Complaint: Dialysis Shunt Problem Stated Complaint: SENT BY PCP Time Seen by Provider: 11/10/19 10:35 - History of Present Illness Initial Comments: 11/10/19 10:35 69 yo F with ESRD on dialysis (T/R/S, last session half completed on Saturday), DM, HTN, AFib on eliquis (last echo 07/19 showing LVEF 45%), hyperthyroidism, HCV and recent thrombectomy from clotted fistula approx 1 week ago who presents from dialysis after the patient was unable to get dialyzed due to possible clot. The patient last got dialyzed 2 days ago without issue, which was her first session after the thrombectomy. Patient has no other complaints. Nephro: Dr. Webb Vascular: Dr. Champ [place] GENERAL/CONSTITUTIONAL: No fever or chills. No weakness. HEAD, EYES, EARS, NOSE AND THROAT: No change in vision. No ear pain or discharge. No sore throat. CARDIOVASCULAR: No chest pain or shortness of breath RESPIRATORY: No cough, wheezing, or hemoptysis. GASTROINTESTINAL: No nausea, vomiting, diarrhea or constipation. GENITOURINARY: No dysuria, frequency, or change in urination. MUSCULOSKELETAL: No joint or muscle swelling or pain. No neck or back pain. SKIN: No rash NEUROLOGIC: No headache, vertigo, loss of consciousness, or change in strength/sensation. ENDOCRINE: No increased thirst. No abnormal weight change HEMATOLOGIC/LYMPHATIC: No anemia, easy bleeding, or history of blood clots. ALLERGIC/IMMUNOLOGIC: No hives or skin allergy. PE GENERAL: Awake, alert, and fully oriented, in no acute distress HEAD: No signs of trauma, normocephalic, atraumatic EYES: EOMI, sclera anicteric, conjunctiva clear ENT: oropharynx clear without exudates. Moist mucosa NECK: Normal ROM, supple LUNGS: No distress, speaks full sentences, clear to auscultation bilaterally HEART: Regular rate and rhythm, normal S1 and S2, no murmurs, rubs or gallops, peripheral pulses normal and equal bilaterally. ABDOMEN: Soft, nontender. No guarding, no rebound. No masses EXTREMITIES : L AV fistula with good bruit, Normal range of motion, no edema. No clubbing or cyanosis. NEUROLOGICAL: Cranial nerves II through XII grossly intact. Normal speech, no focal sensorimotor deficits SKIN: Warm, Dry, normal turgor, no rashes or lesions noted Assessment and Plan 69 yo F with ESRD on dialysis (T/R/S, last session half completed on Saturday), DM, HTN, AFib on eliquis (last echo 07/19 showing LVEF 45%), hyperthyroidism, HCV and recent thrombectomy from clotted fistula approx 1 week ago who presents from dialysis after the patient was unable to get dialyzed due to possible clot. Consider thrombosed fistula Case discussed with Dr. Oakes, recommends duplex study for further eval Case discussed with Dr. Webb, made aware of pt visit - cbc, cmp, type and screen, coags, ekg Plan for admission Ruthy Byers, PGY3 Emergency Medicine Past History - Medical History Allergies/Adverse Reactions: Allergies Allergy/AdvReac Type Severity Reaction Status Date / Time mushroom Allergy Severe Rash Verified 11/10/19 10:26 nut - unspecified [nut] Allergy Severe "HIVES,THROAT Verified 11/10/19 10:26 CLOSES" povidone-iodine Allergy Severe Rash Verified 11/10/19 10:26 [From Betadine] soap [From Betadine] Allergy Severe Rash Verified 11/10/19 10:26 Fish Containing Products AdvReac Severe Swelling Verified 11/10/19 10:26 Home Medications: Ambulatory Orders Diltiazem [Cardizem -] 30 mg PO BID 07/10/16 Escitalopram Oxalate [Lexapro -] 5 mg PO DAILY 07/10/16 Apixaban [Eliquis] 5 mg PO BID 11/18/17 Methimazole [Tapazole] 5 mg PO DAILY 11/18/17 Atorvastatin Ca [Lipitor] 40 mg PO DAILY 03/14/19 Lisinopril 7.5 mg PO BID 03/14/19 Metoprolol Tartrate 50 mg PO DAILY 03/14/19 Albuterol 2.5/Ipratropium 0.5 [Duoneb -] 1 amp NEB RTID amp 03/21/19 Budesonide/Formeterol Fumarate [SYMBICORT 160/4.5mcg -] 2 puff IH BID inhaler 03/21/19 Furosemide [Lasix -] 80 mg PO DAILY tablet 05/06/19 Oxycodone HCl/Acetaminophen [Percocet 5-325 mg Tablet] 1 combo PO Q4H PRN tablet 11/05/19 Acetaminophen [Tylenol .Regular Strength -] 325 mg PO Q4H PRN tablet 11/10/19 Anemia: No Asthma: No Cancer: No Cardiac Disorders: Yes (afib on eliquis.pulmonary hypertension) CVA: No COPD: No CHF: No Dementia: No Diabetes: No Dialysis: Yes (SATURDAY, SATURDAY, SATURDAY) GI Disorders: No Disorders: No HTN: Yes Hypercholesterolemia: Yes Liver Disease: No Seizures: No Thyroid Disease: Yes (hyperthyroidism) - Surgical History Abdominal Surgery: No Appendectomy: Yes Cardiac Surgery: No Cholecystectomy: No Lung Surgery: No Neurologic Surgery: No Orthopedic Surgery: No - Immunization History Immunization Up to Date: No - Psycho-Social/Smoking History Smoking Status: No Smoking History: Never smoked Have you smoked in the past 12 months: No Number of Cigarettes Smoked Daily: 0 - Substance Abuse Hx (Audit-C & DAST Scrn) How often the patient has a drink containing alcohol: Never Score: In Men: 4 or > Positive; In Women: 3 or > Positive: 0 Screen Result (Pos requires Nsg. Audit-10AR): Negative In the last yr the pt used illegal drug/Rx for NonMed reason: No Score: Yes response is considered Positive: 0 Screen Result (Positive result requires Nsg. DAST-10): Negative *Physical Exam - Vital Signs Last Vital Signs Temp Pulse Resp BP Pulse Ox 98.7 F 61 20 161/80 100 11/10/19 10:26 11/10/19 10:26 11/10/19 10:26 11/10/19 10:26 11/10/19 10:26 ED Treatment Course - LABORATORY CBC & Chemistry Diagram: 11/10/19 11:17 11/10/19 11:17 Discharge - Discharge Information Problems reviewed: Yes Clinical Impression/Diagnosis: ESRD (end stage renal disease) Clotted renal dialysis AV graft Qualifiers: Encounter type: initial encounter Qualified Code(s): T82.868A - Thrombosis due to vascular prosthetic devices, implants and grafts, initial encounter Condition: Improved Disposition: HOME - Follow up/Referral - Patient Discharge Instructions - Post Discharge Activity
--- NOTE | 2019-11-10 11:09 | PDOC ---
Attending Attestation - Resident Resident Name: Ruthy Byers - ED Attending Attestation I have performed the following: I have examined & evaluated the patient, The case was reviewed & discussed with the resident, I agree w/resident's findings & plan - HPI HPI: 11/10/19 11:04 69-year-old female with multiple medical problems including end-stage renal disease on dialysis Saturday//Saturday with history of graft complications requiring revision, most recently status post graft thrombectomy last week, had successful dialysis on Saturday but dialysis team was unable to access today, referred to the emergency department. Patient herself has no complaints other than mild discomfort to the area, no fevers or chills. - Physicial Exam PE: 11/10/19 11:07 Afebrile, vital signs stable Well-appearing lying comfortably in stretcher speaking full sentences Left arm fistula with palpable thrill, paradise in place, status post attempt at access with resolved bleeding, 2+ distal pulses and neurologically intact distally. No overlying cellulitis or collection. - Medical Decision Making 11/10/19 11:08 69-year-old female status post left upper extremity dialysis graft thrombectomy now with concern for reocclusion, neurovascularly intact otherwise. Labs, EKG Graft duplex Discussed with Dr. Oakes and Dr. Paz Likely readmission for HD and access management Heart Score/ECG Review #1 ECG reviewed & interpreted by me at: 11:45 General ECG Interpretation: Sinus Rhythm, Normal Rate (62), Normal Intervals (qtc 464, 1st degree block with TN 300), No acute ischemic changes Compared to previous ECG there are: No significant change (c/w 11/03/19) Discharge - Discharge Information Problems reviewed: Yes Clinical Impression/Diagnosis: ESRD (end stage renal disease) Clotted renal dialysis AV graft Qualifiers: Encounter type: initial encounter Qualified Code(s): T82.868A - Thrombosis due to vascular prosthetic devices, implants and grafts, initial encounter Condition: Fair - Follow up/Referral Referrals: Rebecca Villarreal [Primary Care Provider] - - Patient Discharge Instructions - Post Discharge Activity
[2019-11-10 11:36] LABS: BASO % 1.2 % (0-2.0); EOS % 6.2 % (0-4.5); HEMATOCRIT 30.9 % (32.4-45.2); HEMOGLOBIN 9.8 GM/dL (10.7-15.3); LYMPH % 18.6 % (8-40); MCH 26.7 pg (25.7-33.7); MCHC 31.7 g/dl (32.0-36.0); MEAN PLT VOLUME 8.7 fl (7.5-11.1); MONO % 10.8 % (3.8-10.2); NEUT % 63.2 % (42.8-82.8); PLATELET COUNT 242 K/MM3 (134-434); RBC 3.68 M/mm3 (3.60-5.2); RDW 19.5 % (11.6-15.6); WHITE BLOOD COUNT 10.7 K/mm3 (4.0-10.0)
[2019-11-10 11:57] LABS: BILIRUBIN,TOTAL 0.5 mg/dL (0.2-1); CALCIUM 8.6 mg/dL (8.5-10.1); POTASSIUM 4.4 mmol/L (3.5-5.1); TOT PROT 7.4 g/dl (6.4-8.2)
[2019-11-10 12:07] LABS: INR 1.96 (0.83-1.09); PROTHROMBIN TIME (PATIENT) 23.3 SEC (9.7-13.0)
[2019-11-10 12:09] LABS: ACTIVATED PTT 44.1 SECONDS (25.2-36.5)
--- NOTE | 2019-11-10 12:12 | CONSULT ---
- Consultation REQUESTING PROVIDER: CONSULT REQUEST: We have been asked to surgically evaluate this patient for Hospitalist: HISTORY OF PRESENT ILLNESS: 69 y/o F w/ PMHx ESRD on HD via LUE AVG (), Obesity, CVA, CHF, HTN, Hyperlipdemia, Asthma, PNA, Constipation, GERD, Hepatitis C, Anemia, Osteoarthritis, Diabetes Mellitus, Hyperthyroidism, Afib, Pulmonary HTN, sent in from HD due to issues with AVG access. Pt was recently admitted 11/02-11/04 for nonfunction AVG, s/p Open thrombectomy AV graft with Dr Oakes. Pt reports she had a full session of HD on Saturday without issue. Went to HD today and states they were able to place one needle and got no blood on return. Denies cp/sob, n/v/d. PMHx: ESRD on HD (), Obesity, CVA, CHF, HTN, Hyperlipdemia, Asthma, PNA, Constipation, GERD, Hepatitis C, Anemia, Osteoarthritis, Diabetes Mellitus, Hyperthyroidism, Afib, Pulmonary HTN PSHx: 03/18/2019 Cysto, R RUG, [facility] 05/17/2018 LUE AV Graft ([facility]) 03/07/2018 Venogram RUE AVF ([facility]) 01/01/2018 Creation of left cephalic vein fistula ([facility]) 11/27/2017 Permacath Insertion ([facility]) 06/11/2017 Venogram, venoplasty LUE AVF ([facility]) 11/14/2016 Venogram, DCB venoplasty of LUE AVF ([facility]) 01/10/2016 Insertion of Permacath, creation of LUE AVF ([facility]) Hysterectomy Appendectomy Home Medications Medication Instructions Recorded Diltiazem [Cardizem -] 30 mg PO BID 07/10/16 Escitalopram Oxalate [Lexapro -] 5 mg PO DAILY 07/10/16 Apixaban [Eliquis] 5 mg PO BID 11/18/17 Methimazole [Tapazole] 5 mg PO DAILY 11/18/17 Atorvastatin Ca [Lipitor] 40 mg PO DAILY 03/14/19 Lisinopril 7.5 mg PO BID 03/14/19 Metoprolol Tartrate 50 mg PO DAILY 03/14/19 Albuterol 2.5/Ipratropium 0.5 1 amp NEB RTID amp 03/21/19 [Duoneb -] Budesonide/Formeterol Fumarate 2 puff IH BID inhaler 03/21/19 [SYMBICORT 160/4.5mcg -] Furosemide [Lasix -] 80 mg PO DAILY tablet 05/06/19 Oxycodone HCl/Acetaminophen 1 combo PO Q4H PRN tablet 11/05/19 [Percocet 5-325 mg Tablet] Allergies Allergy/AdvReac Type Severity Reaction Status Date / Time mushroom Allergy Severe Rash Verified 11/10/19 10:26 nut - unspecified [nut] Allergy Severe "HIVES,THROAT Verified 11/10/19 10:26 CLOSES" povidone-iodine Allergy Severe Rash Verified 11/10/19 10:26 [From Betadine] soap [From Betadine] Allergy Severe Rash Verified 11/10/19 10:26 Fish Containing Products AdvReac Severe Swelling Verified 11/10/19 10:26 REVIEW OF SYSTEMS: CONSTITUTIONAL: Absent: fever, chills CARDIOVASCULAR: Absent: chest pain RESPIRATORY: Absent: cough, shortness of breath GASTROINTESTINAL: Absent: abdominal pain, abdominal distension PHYSICAL EXAM: GENERAL: Awake, alert, and fully oriented, in no acute distress. HEAD: Normal with no signs of trauma. LUNGS: Unlabored on RA. No accessory muscle use. UPPER EXTREMITIES: LUE avg with palpable thrill, audible bruit. dressings c/d/i. No peripheral edema, palpable radial pulse Vital Signs Temperature 98.7 F 11/10/19 10:26 Pulse Rate 61 11/10/19 10:26 Respiratory Rate 20 11/10/19 10:26 Blood Pressure 161/80 11/10/19 10:26 O2 Sat by Pulse Oximetry (%) 100 11/10/19 11:46 Lab Results WBC 10.7 K/mm3 (4.0-10.0) H 11/10/19 11:17 RBC 3.68 M/mm3 (3.60-5.2) 11/10/19 11:17 Hgb 9.8 GM/dL (10.7-15.3) L 11/10/19 11:17 Hct 30.9 % (32.4-45.2) L 11/10/19 11:17 MCV 84.0 fl (80-96) 11/10/19 11:17 MCHC 31.7 g/dl (32.0-36.0) L 11/10/19 11:17 RDW 19.5 % (11.6-15.6) H 11/10/19 11:17 Plt Count 242 K/MM3 (134-434) D 11/10/19 11:17 INR 1.96 (0.83-1.09) H 11/10/19 11:17 Sodium 132 mmol/L (136-145) L 11/10/19 11:17 Potassium 4.4 mmol/L (3.5-5.1) 11/10/19 11:17 Chloride 94 mmol/L (98-107) L 11/10/19 11:17 Carbon Dioxide 28 mmol/L (21-32) 11/10/19 11:17 Anion Gap 10 MMOL/L (8-16) 11/10/19 11:17 BUN 27.0 mg/dL (7-18) H 11/10/19 11:17 Random Glucose 107 mg/dL (74-106) H 11/10/19 11:17 Calcium 8.6 mg/dL (8.5-10.1) 11/10/19 11:17 A/P: 69 y/o F w/ PMHx ESRD on HD via LUE AVG (), Obesity, CVA, CHF, HTN, Hyperlipdemia, Asthma, PNA, Constipation, GERD, Hepatitis C, Anemia, Osteoarthritis, Diabetes Mellitus, Hyperthyroidism, Afib, Pulmonary HTN, sent in from HD due to issues with AVG access. 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 D/w attending Dr Paz aware graft is patent will attempt HD today. call if any issues d/w attending Dr Oakes
[2019-11-10] MEDS ORDERED: ALBUTEROL SO4 2.5/IPRATROPIUM 0.5 INH SOL 3 ML VIAL.NEB. NEB PRN (13:05)
--- NOTE | 2019-11-10 13:05 | HP ---
Admitting History and Physical - Primary Care Physician PCP: Rebecca Villarreal S - Admission Chief Complaint: AVF malfunction History of Present Illness: 69 yo F with ESRD on dialysis (T/R/S, last session half completed on Saturday), DM, HTN, AFib on eliquis (last echo 07/19 showing LVEF 45%), hyperthyroidism, HCV and recent thrombectomy from clotted fistula few days ago who presents from dialysis after the patient was unable to get dialyzed due to possible clot. The patient last got dialyzed 2 days ago without issue, which was her first session after the thrombectomy. Patient has no other complaints. 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: CVA (transient speech loss and left hemiparesis in 2012) Cardiovascular: Yes: CHF, HTN, Hyperlipdemia Pulmonary: Yes: Asthma, Pneumonia, Other (ILD) Gastrointestinal: Yes: Constipation, GERD Hepatobiliary: Yes: Hepatitis C Renal/: Yes: Renal Inusuff Heme/Onc: Yes: Anemia Musculoskeletal: Yes: Osteoarthritis Endocrine: Yes: Diabetes Mellitus, Hyperthyroidism, Other - Past Surgical History Past Surgical History: Yes: , Hysterectomy, Appendectomy, Colonoscopy - Smoking History Smoking history: Never smoked Have you smoked in the past 12 months: No Aproximately how many cigarettes per day: 0 - Alcohol/Substance Use Hx Alcohol Use: No History of Substance Use: reports: None - Social History Usual Living Arrangement: Yes: With Child Do you think of yourself as: Straight/Heterosexual ADL: Independent History of Recent Travel: No Home Medications - Allergies Allergies/Adverse Reactions: Allergies Allergy/AdvReac Type Severity Reaction Status Date / Time mushroom Allergy Severe Rash Verified 11/10/19 10:26 nut - unspecified [nut] Allergy Severe "HIVES,THROAT Verified 11/10/19 10:26 CLOSES" povidone-iodine Allergy Severe Rash Verified 11/10/19 10:26 [From Betadine] soap [From Betadine] Allergy Severe Rash Verified 11/10/19 10:26 Fish Containing Products AdvReac Severe Swelling Verified 11/10/19 10:26 - Home Medications Home Medications: Ambulatory Orders Diltiazem [Cardizem -] 30 mg PO BID 07/10/16 Escitalopram Oxalate [Lexapro -] 5 mg PO DAILY 07/10/16 Apixaban [Eliquis] 5 mg PO BID 11/18/17 Methimazole [Tapazole] 5 mg PO DAILY 11/18/17 Atorvastatin Ca [Lipitor] 40 mg PO DAILY 03/14/19 Lisinopril 7.5 mg PO BID 03/14/19 Metoprolol Tartrate 50 mg PO DAILY 03/14/19 Albuterol 2.5/Ipratropium 0.5 [Duoneb -] 1 amp NEB RTID amp 03/21/19 Budesonide/Formeterol Fumarate [SYMBICORT 160/4.5mcg -] 2 puff IH BID inhaler 03/21/19 Furosemide [Lasix -] 80 mg PO DAILY tablet 05/06/19 Oxycodone HCl/Acetaminophen [Percocet 5-325 mg Tablet] 1 combo PO Q4H PRN tablet 11/05/19 Acetaminophen [Tylenol .Regular Strength -] 325 mg PO Q4H PRN tablet 11/10/19 Family Medical History Family History: Unremarkable Review of Systems - Review of Systems Constitutional: denies: Chills, Fever, Lethargy Eyes: denies: Blind Spots, Blurred Vision, Double Vision HENT: denies: Ear Pain, Epistaxis Neck: denies: Decreased ROM, Pain on Movement, Stiffness Cardiovascular: denies: Chest Pain, Shortness of Breath Respiratory: denies: Cough, SOB Gastrointestinal: denies: Abdominal Pain, Melena, Vomiting, Vomiting Blood Genitourinary: denies: Burning, Dysuria, Flank Pain, Frequency Musculoskeletal: denies: Back Pain, Extremity Pain Integumentary: denies: Eczema, Rash Neurological: denies: Change in LOC, Change in Speech, Confusion, Syncope Endocrine: denies: Excessive Sweating, Unexplained Weight Gain, Unexplained Weight Loss Hematology/Lymphatic: denies: Easily Bruised, Excessive Bleeding Psychiatric: denies: Altered Sleep Pattern, Anxiety, Depression, Suicidal Physical Examination Vital Signs: Vital Signs Temperature 98.7 F 11/10/19 10:26 Pulse Rate 61 11/10/19 10:26 Respiratory Rate 20 11/10/19 10:26 Blood Pressure 161/80 11/10/19 10:26 O2 Sat by Pulse Oximetry (%) 100 11/10/19 11:46 Constitutional: Yes: No Distress, Calm Eyes: Yes: Conjunctiva Clear HENT: Yes: Atraumatic Neck: Yes: Supple Cardiovascular: Yes: Regular Rate and Rhythm Respiratory: Yes: CTA Bilaterally Gastrointestinal: Yes: Soft. No: Tenderness Renal/: No: CVA Tenderness - Left, CVA Tenderness - Right Musculoskeletal: No: Joint Stiffness, Joint Swelling Extremities: Yes: Other (LUE AVF no bleed). No: Cold, Cool, Cyanosis Edema: No Integumentary: No: Rash, Venous Stasis Changes Neurological: Yes: Alert, Oriented ...Motor Strength: WNL Psychiatric: Yes: Alert, Oriented. No: Agitated, Suicidal Ideation Labs: CBC, BMP 11/10/19 11:17 11/10/19 11:17 Assessment/Plan 69 yo F with ESRD on dialysis (T/R/S, last session half completed on Saturday), DM, HTN, AFib on eliquis (last echo 07/19 showing LVEF 45%), hyperthyroidism, HCV and recent thrombectomy from clotted fistula few days ago who presents from dialysis after the patient was unable to get dialyzed due to possible clot. The patient last got dialyzed 2 days ago without issue, which was her first session after the thrombectomy. Patient has no other complaints. renal and vascular surgery eval HD per renal pt would like to go home [place] when cleared by renal and vascular d/w pt and staff
[2019-11-10] MEDS ORDERED: ACETAMINOPHEN 325 MG TABLET (FP) PO PRN (14:00)
[2019-11-10] MEDS ORDERED: oxyCODONE HCL 5 MG TABLET PO PRN (14:00)
[2019-11-10] MEDS ORDERED: SODIUM CHLORIDE 250 ML IV PRN (16:20)
--- NOTE | 2019-11-10 17:41 | CON.NEP ---
Consult Consult Specialty:: Nephrology Referred by:: ED Reason for Consultation:: ESRD on HD with dialysis access dyfunction - History of Present Illness Chief Complaint: AVG not working History of Present Illness: This is a 69 year old woman with history of ESRD on HD (TTS), hypertension, hepatitis C, afib on Eliquis who presents from HD unit with dialysis access dysfunction. As per the patient they were able to place one needle but when they tried the 2nd it was not working. She last had dialysis on Saturday. She was recently admitted for thrombosed AVG that required surgical intervention. She denies any sob, cp, fever, chills, N/V/D. No leg swelling. 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: CVA (transient speech loss and left hemiparesis in 2012) Cardio/Vascular: Yes: CHF, HTN, Hyperlipdemia Pulmonary: Yes: Asthma, Pneumonia, Other (ILD) Gastrointestinal: Yes: Constipation, GERD Hepatobiliary: Yes: Hepatitis C Renal/: Yes: Renal Inusuff Musculoskeletal: Yes: Osteoarthritis Endocrine: Yes: Diabetes Mellitus, Hyperthyroidism, Other - Past Surgical History Past Surgical History: Yes: , Hysterectomy, Appendectomy, Colonoscopy - Alcohol/Substance Use Hx Alcohol Use: No History of Substance Use: reports: None - Smoking History Smoking history: Never smoked Have you smoked in the past 12 months: No Aproximately how many cigarettes per day: 0 - Social History Usual Living Arrangement: Alone () ADL: Independent History of Recent Travel: No Home Medications - Allergies Allergies/Adverse Reactions: Allergies Allergy/AdvReac Type Severity Reaction Status Date / Time mushroom Allergy Severe Rash Verified 11/10/19 10:26 nut - unspecified [nut] Allergy Severe "HIVES,THROAT Verified 11/10/19 10:26 CLOSES" povidone-iodine Allergy Severe Rash Verified 11/10/19 10:26 [From Betadine] soap [From Betadine] Allergy Severe Rash Verified 11/10/19 10:26 Fish Containing Products AdvReac Severe Swelling Verified 11/10/19 10:26 - Home Medications Home Medications: Ambulatory Orders Diltiazem [Cardizem -] 30 mg PO BID 07/10/16 Escitalopram Oxalate [Lexapro -] 5 mg PO DAILY 07/10/16 Apixaban [Eliquis] 5 mg PO BID 11/18/17 Methimazole [Tapazole] 5 mg PO DAILY 11/18/17 Atorvastatin Ca [Lipitor] 40 mg PO DAILY 03/14/19 Lisinopril 7.5 mg PO BID 03/14/19 Metoprolol Tartrate 50 mg PO DAILY 03/14/19 Albuterol 2.5/Ipratropium 0.5 [Duoneb -] 1 amp NEB RTID amp 03/21/19 Budesonide/Formeterol Fumarate [SYMBICORT 160/4.5mcg -] 2 puff IH BID inhaler 03/21/19 Furosemide [Lasix -] 80 mg PO DAILY tablet 05/06/19 Oxycodone HCl/Acetaminophen [Percocet 5-325 mg Tablet] 1 combo PO Q4H PRN tablet 11/05/19 Family Medical History Family History: Unremarkable Review of Systems - Review of Systems Constitutional: reports: No Symptoms Eyes: reports: No Symptoms HENT: reports: No Symptoms Neck: reports: No Symptoms Cardiovascular: reports: No Symptoms Respiratory: reports: No Symptoms Gastrointestinal: reports: No Symptoms Genitourinary: reports: No Symptoms Musculoskeletal: reports: No Symptoms Integumentary: reports: No Symptoms Neurological: reports: No Symptoms Endocrine: reports: No Symptoms Nephrology Consult - Height Height: 5 ft 7 in - Weight Weight: 102.512 kg - BMI Body Mass Index (BMI): 35.4 - Lab Results CBC,BMP: CBC, BMP 11/10/19 11:17 11/10/19 11:17 Anion Gap: Anion Gap Anion Gap 10 MMOL/L (8-16) 11/10/19 11:17 - Physical Examination Vital Signs: Vital Signs Temperature 98.7 F 11/10/19 10:26 Pulse Rate 61 11/10/19 15:15 Respiratory Rate 20 11/10/19 15:15 Blood Pressure 132/54 L 11/10/19 15:15 O2 Sat by Pulse Oximetry (%) 100 11/10/19 15:15 Constitutional: Yes: Well Nourished, No Distress Eyes: Yes: Conjunctiva Clear HENT: Yes: Atraumatic, Normocephalic Neck: Yes: Supple Cardiovascular: Yes: Pulse Irregular. No: Murmur, Rub Respiratory: Yes: Regular, CTA Bilaterally. No: Rales, Rhonchi Gastrointestinal: Yes: Soft. No: Tenderness Access for Hemodialysis: AV Graft (+ thrill) Extremities: No: Cyanosis Edema: No Neurological: Yes: Alert, Oriented Assessment/Plan 69 year old woman with history of ESRD on HD (TTS), hyp ertension, hepatitis C, afib on Eliquis who presents from HD unit with dialysis access dysfunction. 1. AVG access problem 2. ESRD on HD 3. Hypertension 4. Atrial fibrillation on Eliquis She has a good bruit on examination despite access not working in dialysis. US done, result pending. Will attempt to use AVG for abridged dialysis session today. If AVG works well she can be discharged and follow up with her outpatient dialysis center. Renal diet Vascular surgery on board. Thank you Jon Paz DO
[2019-11-10 21:09] VITALS: BP 178/97; PULSE 59
[2019-11-10] MEDS ORDERED: dilTIAZem HCL 30 MG TABLET PO SCH (22:00)
[2019-11-10] MEDS ORDERED: BUDESONIDE/FORMETEROL FUMARATE 160/4.5 mcg INHALER IH SCH (22:00)
[2019-11-10] MEDS ORDERED: LISINOPRIL 5 MG TABLET (FP) PO SCH (22:00)
[2019-11-10] MEDS ORDERED: APIXABAN 5 MG TABLET PO SCH (22:00)
[2019-11-11] MEDS ORDERED: ESCITALOPRAM OXALATE 10 MG TABLET PO SCH (10:00)
[2019-11-11] MEDS ORDERED: METOPROLOL TARTRATE 50 MG TABLET (FP) PO SCH (10:00)
[2019-11-11] MEDS ORDERED: ATORVASTATIN CA 40 MG TABLET (FP) PO SCH (10:00)
[2019-11-11] MEDS ORDERED: FUROSEMIDE 40 MG TABLET (FP) PO SCH (10:00)
[2019-11-11] MEDS ORDERED: METHIMAZOLE 5 MG TABLET (FP) PO SCH (10:00)
--- NOTE | 2019-11-11 13:31 | EKG ---
Test Reason : Blood Pressure : / mmHG Vent. Rate : 062 BPM Atrial Rate : 062 BPM P-R Int : 300 ms QRS Dur : 098 ms QT Int : 458 ms P-R-T Axes : 070 -20 100 degrees QTc Int : 464 ms SINUS RHYTHM WITH 1ST DEGREE A-V BLOCK CANNOT RULE OUT ANTERIOR INFARCT (CITED ON OR BEFORE 13-MAR-2018) ABNORMAL ECG Confirmed by MD CINDI, FELIPE ([id number]) on 11/11/2019 1:30:44 PM Referred By: Confirmed By:FELIPE PUENTE MD
--- NOTE | 2019-11-12 08:30 | DS ---
Physical Examination Vital Signs: Vital Signs Temperature 98.7 F 11/10/19 20:59 Pulse Rate 59 L 11/10/19 20:59 Respiratory Rate 18 11/10/19 21:12 Blood Pressure 178/97 H 11/10/19 20:59 O2 Sat by Pulse Oximetry (%) 100 11/10/19 21:12 Findings/Remarks: DC home same day as admission AVF functional able to be dyalized - cleared b y renal and vascular to DC home Labs: CBC, BMP 11/10/19 11:17 11/10/19 11:17 Discharge Summary Problems reviewed: Yes Reason For Visit: DIALYSIS CATHETER CLOT OR FAILURE Procedures: Principal: AVF access problems Other Procedures: seen by renal and vascular; dyalized in H Hospital Course: able to use AVF and cleared to go home; f.u as advised Condition: Improved - Instructions Diet, Activity, Other Instructions: f/u PCP renal cardiology and vascular surgery as advised Referrals: Rebecca Villarreal [Primary Care Provider] - Jon Paz MD [Staff Physician] - Jonas Oakes MD [Staff Physician] - Disposition: HOME - Home Medications Comprehensive Discharge Medication List: Ambulatory Orders Diltiazem [Cardizem -] 30 mg PO BID 07/10/16 Escitalopram Oxalate [Lexapro -] 5 mg PO DAILY 07/10/16 Apixaban [Eliquis] 5 mg PO BID 11/18/17 Methimazole [Tapazole] 5 mg PO DAILY 11/18/17 Atorvastatin Ca [Lipitor] 40 mg PO DAILY 03/14/19 Lisinopril 7.5 mg PO BID 03/14/19 Metoprolol Tartrate 50 mg PO DAILY 03/14/19 Albuterol 2.5/Ipratropium 0.5 [Duoneb -] 1 amp NEB RTID amp 03/21/19 Budesonide/Formeterol Fumarate [SYMBICORT 160/4.5mcg -] 2 puff IH BID inhaler 03/21/19 Furosemide [Lasix -] 80 mg PO DAILY tablet 05/06/19 Oxycodone HCl/Acetaminophen [Percocet 5-325 mg Tablet] 1 combo PO Q4H PRN tablet 11/05/19 Acetaminophen [Tylenol .Regular Strength -] 325 mg PO Q4H PRN tablet 11/10/19
== END 2019-11-10 22:03 | disposition home or self-care (01) | DRG 314 ==
LOC: JER 10:18 → JERBED 10:49 → J8W 21:21
PROVIDERS: ADMIT Internal Medicine; ATTEND Internal Medicine
PROC: 5A1D70Z Performance of Urinary Filtration, Intermittent, Less than 6 Hours Per Day (ICD-10-PCS; principal; 2019-11-10)
DX: T82.868A Thrombosis due to vascular prosthetic devices, implants and grafts, initial encounter (principal); N18.6 End stage renal disease; I13.2 Hypertensive heart and chronic kidney disease with heart failure and with stage 5 chronic kidney disease, or end stage renal disease; I69.354 Hemiplegia and hemiparesis following cerebral infarction affecting left non-dominant side; I48.91 Unspecified atrial fibrillation; Z79.01 Long term (current) use of anticoagulants; E11.22 Type 2 diabetes mellitus with diabetic chronic kidney disease; Z99.2 Dependence on renal dialysis; E66.9 Obesity, unspecified; I50.9 Heart failure, unspecified; Z68.35 Body mass index [BMI] 35.0-35.9, adult; I27.20 Pulmonary hypertension, unspecified; E78.5 Hyperlipidemia, unspecified; K21.9 Gastro-esophageal reflux disease without esophagitis; B19.20 Unspecified viral hepatitis C without hepatic coma; D64.9 Anemia, unspecified; Y83.8 Other surgical procedures as the cause of abnormal reaction of the patient, or of later complication, without mention of misadventure at the time of the procedure; E05.90 Thyrotoxicosis, unspecified without thyrotoxic crisis or storm
CPT/HCPCS: 36415; 80053; 85025; 85610; 85730; 86850; 86870; 86900; 86901; 86902; 93005; 93010; 93971; 99291; U0003

== ENCOUNTER 2019-12-09 10:59 | Inpatient (IN) | payer OTHER ==
--- NOTE | 2019-12-09 12:32 | CON.NEP ---
Consult Consult Specialty:: Nephrology Referred by:: ED Reason for Consultation:: ESRD on HD with non-working AVG - History of Present Illness Chief Complaint: Nonfunctioning AVG History of Present Illness: This is a 69 year old woman with history of ESRD on HD, Hepatitis C, atrial fibrillation on Eliquis, DM, hypertension who presented from dialysis with non-functioning AVG. Pt seen and examined at dialysis. She last had full dialysis on Saturday. She had 1 hour of dialysis yesterday but access stopped functioning. She went to dialysis again today but access was not functioning. She denies any chest pain, shortness of breath abdominal pain, fever, chills, N/V/D. No leg swelling. 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: CVA (transient speech loss and left hemiparesis in 2012) Cardio/Vascular: Yes: CHF, HTN, Hyperlipdemia Pulmonary: Yes: Asthma, Pneumonia, Other (ILD) Gastrointestinal: Yes: Constipation, GERD Hepatobiliary: Yes: Hepatitis C Renal/: Yes: Renal Inusuff ...LMP: 03/04/94 ...: No Musculoskeletal: Yes: Osteoarthritis Endocrine: Yes: Diabetes Mellitus, Hyperthyroidism, Other - Past Surgical History Past Surgical History: Yes: , Hysterectomy, Appendectomy, Colonoscopy - Alcohol/Substance Use Hx Alcohol Use: No History of Substance Use: reports: None - Smoking History Smoking history: Never smoked Have you smoked in the past 12 months: No Aproximately how many cigarettes per day: 0 - Social History Usual Living Arrangement: Alone () ADL: Independent History of Recent Travel: No Home Medications - Allergies Allergies/Adverse Reactions: Allergies Allergy/AdvReac Type Severity Reaction Status Date / Time mushroom Allergy Severe Rash Verified 12/09/19 11:06 nut - unspecified [nut] Allergy Severe "HIVES,THROAT Verified 12/09/19 11:06 CLOSES" povidone-iodine Allergy Severe Rash Verified 12/09/19 11:06 [From Betadine] soap [From Betadine] Allergy Severe Rash Verified 12/09/19 11:06 Fish Containing Products AdvReac Severe Swelling Verified 12/09/19 11:06 - Home Medications Home Medications: Ambulatory Orders Diltiazem [Cardizem -] 30 mg PO BID 07/10/16 Escitalopram Oxalate [Lexapro -] 5 mg PO DAILY 07/10/16 Apixaban [Eliquis] 5 mg PO BID 11/18/17 Methimazole [Tapazole] 5 mg PO DAILY 11/18/17 Atorvastatin Ca [Lipitor] 40 mg PO DAILY 03/14/19 Lisinopril 7.5 mg PO BID 03/14/19 Metoprolol Tartrate 50 mg PO DAILY 03/14/19 Albuterol 2.5/Ipratropium 0.5 [Duoneb -] 1 amp NEB RTID amp 03/21/19 Budesonide/Formeterol Fumarate [SYMBICORT 160/4.5mcg -] 2 puff IH BID inhaler 03/21/19 Furosemide [Lasix -] 80 mg PO DAILY tablet 05/06/19 Oxycodone HCl/Acetaminophen [Percocet 5-325 mg Tablet] 1 combo PO Q4H PRN tablet 11/05/19 Acetaminophen [Tylenol .Regular Strength -] 325 mg PO Q4H PRN tablet 11/10/19 Family Medical History Family History: Unremarkable Review of Systems - Review of Systems Constitutional: reports: No Symptoms Eyes: reports: No Symptoms HENT: reports: No Symptoms Neck: reports: No Symptoms Cardiovascular: reports: No Symptoms Respiratory: reports: No Symptoms Gastrointestinal: reports: No Symptoms Musculoskeletal: reports: No Symptoms Integumentary: reports: No Symptoms Nephrology Consult - Height Height: 5 ft 7 in - Weight Weight: 102.058 kg - BMI Body Mass Index (BMI): 35.2 - Physical Examination Vital Signs: Vital Signs Temperature 97.7 F 12/09/19 11:02 Pulse Rate 63 12/09/19 11:02 Respiratory Rate 21 H 12/09/19 11:02 Blood Pressure 126/69 12/09/19 11:02 O2 Sat by Pulse Oximetry (%) 96 12/09/19 11:02 Constitutional: Yes: No Distress, Calm HENT: Yes: Atraumatic Neck: Yes: Supple Cardiovascular: Yes: Regular Rate and Rhythm Respiratory: Yes: Regular, CTA Bilaterally. No: Rales, Rhonchi Gastrointestinal: Yes: Normal Bowel Sounds, Soft, Abdomen, Obese. No: Tenderness Access for Hemodialysis: AV Graft (no thrill or bruit) Extremities: No: Cold, Cool, Cyanosis Edema: No Neurological: Yes: Alert Assessment/Plan 69 year old woman with history of ESRD on HD, Hepatitis C, atrial fibrillation on Eliquis, DM, hypertension who presented from dialysis with non-functioning AVG 1. Clotted AVG 2. ESRD on HD 3. Hypertension 4. CKD related anemia 5. Renal Osteodystrophy 6. Atrial fibrillation on Eliquis 7. DM for Doppler of AVG Vascular consultation Check CMP to access electrolyte and acid/base status will follow up on labs and determine need for urgent dialysis. No evidence of volume overload Renal diet, 1.2L daily fluid restriction Check CBC. Check Phos, continue phos binder with meals Continue Eliquis Thank camila Paz DO
--- NOTE | 2019-12-09 13:32 | PDOC ---
Documentation entered by Ravinder Brady SCRIBE, acting as scribe for Kaveh Cook MD. Kaveh Cook MD: This documentation has been prepared by the matthew, Ravinder Brady SCRIBE, under my direction and personally reviewed by me in its entirety. I confirm that the documentation accurately reflects all work, treatment, procedures, and medical decision making performed by me. History of Present Illness - General Chief Complaint: AV shunt bleeding Stated Complaint: BLOCKED FISTULA Time Seen by Provider: 12/09/19 11:14 History Source: Patient Exam Limitations: No Limitations - History of Present Illness Initial Comments: 12/09/19 11:55 The patient is a 69 year old female with a significant past medical history of ESRD (HD T/W/Sa; last dialysis: Sat), Afib (on eliquis, LVEF 45%), DM, Hyperthyroidism, HCV, and HTN who presents to the emergency department for evaluation of a clotted fistula that was discovered yesterday at dialysis. The patient was admitted 11/10/2019-11/12/2019 for AV shunt blockage. She was also admitted 11/02-11/04 for nonfunctioning AVG, s/p Open thrombectomy AV graft. The patient denies chest/abdominal/back pain, cough, and shortness of breath. Denies fever, chills, nausea, vomiting, and/or any GI symptoms. Denies any symptoms. Denies any other symptoms. Allergies: mushroom, nut, povidone-iodine, soap, fish containing products Social Hx: None reported Surgical Hx: , Hysterectomy, Appendectomy, Colonoscopy PMD: Dr Villarreal Cardio: Dr. Arriaza Nephro: Alessia Sethi Vascular: Dr. Oakes Past History - Medical History Allergies/Adverse Reactions: Allergies Allergy/AdvReac Type Severity Reaction Status Date / Time mushroom Allergy Severe Rash Verified 12/09/19 11:06 nut - unspecified [nut] Allergy Severe "HIVES,THROAT Verified 12/09/19 11:06 CLOSES" povidone-iodine Allergy Severe Rash Verified 12/09/19 11:06 [From Betadine] soap [From Betadine] Allergy Severe Rash Verified 12/09/19 11:06 Fish Containing Products AdvReac Severe Swelling Verified 12/09/19 11:06 Home Medications: Ambulatory Orders Diltiazem [Cardizem -] 30 mg PO BID 07/10/16 Escitalopram Oxalate [Lexapro -] 5 mg PO DAILY 07/10/16 Apixaban [Eliquis] 5 mg PO BID 11/18/17 Methimazole [Tapazole] 5 mg PO DAILY 11/18/17 Atorvastatin Ca [Lipitor] 40 mg PO DAILY 03/14/19 Lisinopril 7.5 mg PO BID 03/14/19 Metoprolol Tartrate 50 mg PO DAILY 03/14/19 Albuterol 2.5/Ipratropium 0.5 [Duoneb -] 1 amp NEB RTID amp 03/21/19 Budesonide/Formeterol Fumarate [SYMBICORT 160/4.5mcg -] 2 puff IH BID inhaler 03/21/19 Furosemide [Lasix -] 80 mg PO DAILY tablet 05/06/19 Oxycodone HCl/Acetaminophen [Percocet 5-325 mg Tablet] 1 combo PO Q4H PRN tablet 11/05/19 Acetaminophen [Tylenol .Regular Strength -] 325 mg PO Q4H PRN tablet 11/10/19 Anemia: No Asthma: No Cancer: No Cardiac Disorders: Yes (afib on eliquis.pulmonary hypertension) CVA: No COPD: No CHF: No Dementia: No Diabetes: No Dialysis: Yes (SATURDAY, SATURDAY, SATURDAY) GI Disorders: No Disorders: No HTN: Yes Hypercholesterolemia: Yes Liver Disease: No Seizures: No Thyroid Disease: Yes (hyperthyroidism) - Surgical History Abdominal Surgery: No Appendectomy: Yes Cardiac Surgery: No Cholecystectomy: No Lung Surgery: No Neurologic Surgery: No Orthopedic Surgery: No - Reproductive History Is Patient Now?: No - Immunization History Immunization Up to Date: No - Psycho-Social/Smoking History Smoking Status: No Smoking History: Never smoked Have you smoked in the past 12 months: No Number of Cigarettes Smoked Daily: 0 Information on smoking cessation initiated: No - Substance Abuse Hx (Audit-C & DAST Scrn) How often the patient has a drink containing alcohol: Never Score: In Men: 4 or > Positive; In Women: 3 or > Positive: 0 Screen Result (Pos requires Nsg. Audit-10AR): Negative In the last yr the pt used illegal drug/Rx for NonMed reason: No Score: Yes response is considered Positive: 0 Screen Result (Positive result requires Nsg. DAST-10): Negative Review of Systems - Review of Systems Able to Perform ROS?: Yes Comments:: 12/09/19 11:55 "GENERAL/CONSTITUTIONAL: No fever or chills. No weakness. HEAD, EYES, EARS, NOSE AND THROAT: No change in vision. No ear pain or discharge. No sore throat. CARDIOVASCULAR: No chest pain, no shortness of breath, no loss of consciousness RESPIRATORY: No cough, wheezing, or hemoptysis. GASTROINTESTINAL: No nausea, vomiting, diarrhea or constipation. GENITOURINARY: No dysuria, frequency, or change in urination. MUSCULOSKELETAL: No joint or muscle swelling or pain. No neck or back pain. SKIN: No rash NEUROLOGIC: No vertigo, no change in strength/sensation. ENDOCRINE: No increased thirst. No abnormal weight change. HEMATOLOGIC/LYMPHATIC: No anemia, easy bleeding, or history of blood clots. ALLERGIC/IMMUNOLOGIC: No hives or skin allergy. All Other Systems: Reviewed and Negative *Physical Exam - Vital Signs Last Vital Signs Temp Pulse Resp BP Pulse Ox 97.7 F 63 21 H 126/69 96 12/09/19 11:02 12/09/19 11:02 12/09/19 11:02 12/09/19 11:02 12/09/19 11:02 - Physical Exam 12/09/19 11:16 "GENERAL: Awake, alert, and fully oriented, in no acute distress. HEAD: No signs of trauma EYES: PERRLA, EOMI, sclera anicteric, conjunctiva clear ENT: Auricles normal inspection, hearing grossly normal, nares patent, oropharynx clear without exudates. Moist mucosa NECK: Nontender, no stepoffs, Normal ROM, supple, no lymphadenopathy, JVD, or masses LUNGS: Breath sounds equal, clear to auscultation bilaterally. No wheezes, and no crackles HEART: Regular rate and rhythm, normal S1 and S2, no murmurs, rubs or gallops ABDOMEN: Soft, nontender, normoactive bowel sounds. No guarding, no rebound. No masses EXTREMITIES: + L AV graft, no palpable thrill, Normal range of motion, no edema. No clubbing or cyanosis. No cords, erythema, or tenderness NEUROLOGICAL: Cranial nerves II through XII intact. 5/5 strength and sensation in all extremities, Normal speech, normal gait, normal cerebellar function SKIN: Warm, Dry, normal turgor, no rashes or lesions noted." ED Treatment Course - LABORATORY CBC & Chemistry Diagram: 12/09/19 15:00 12/09/19 15:00 Medical Decision Making - Medical Decision Making 12/09/19 13:36 69 F with clotted AV graft. Pt with no complaints. - Labs - US - Discussed with Dr. Paz and Dr. Oakes 12/09/19 15:[address] Villarreal Discharge - Discharge Information Problems reviewed: Yes Clinical Impression/Diagnosis: Clotted renal dialysis AV graft Qualifiers: Encounter type: initial encounter Qualified Code(s): T82.868A - Thrombosis due to vascular prosthetic devices, implants and grafts, initial encounter - Admission Yes - Follow up/Referral Referrals: Rebecca Villarreal [Primary Care Provider] - - Patient Discharge Instructions - Post Discharge Activity
--- NOTE | 2019-12-09 14:51 | EKG ---
Test Reason : Blood Pressure : / mmHG Vent. Rate : 058 BPM Atrial Rate : 058 BPM P-R Int : 274 ms QRS Dur : 092 ms QT Int : 460 ms P-R-T Axes : 004 -18 091 degrees QTc Int : 451 ms SINUS BRADYCARDIA WITH 1ST DEGREE A-V BLOCK CANNOT RULE OUT ANTERIOR INFARCT (CITED ON OR BEFORE 13-MAR-2018) ABNORMAL ECG WHEN COMPARED WITH ECG OF 10-NOV-2019 11:45, NO SIGNIFICANT CHANGE WAS FOUND Confirmed by Augustus Jacques MD ([id number]) on 12/09/2019 2:50:24 PM Referred By: Confirmed By:Augustus Jacques MD
[2019-12-09 15:13] LABS: BASO % 0.9 % (0-2.0); EOS % 6.7 % (0-4.5); HEMATOCRIT 32.4 % (32.4-45.2); HEMOGLOBIN 10.3 GM/dL (10.7-15.3); LYMPH % 24.6 % (8-40); MCH 26.4 pg (25.7-33.7); MCHC 31.8 g/dl (32.0-36.0); MEAN CELL VOLUME 83.2 fl (80-96); MEAN PLT VOLUME 8.9 fl (7.5-11.1); MONO % 11.6 % (3.8-10.2); NEUT % 56.2 % (42.8-82.8); PLATELET COUNT 201 K/MM3 (134-434); RBC 3.89 M/mm3 (3.60-5.2); RDW 19.3 % (11.6-15.6); WHITE BLOOD COUNT 9.2 K/mm3 (4.0-10.0)
[2019-12-09 15:21] LABS: INR 1.63 (0.83-1.09); PROTHROMBIN TIME (PATIENT) 19.3 SEC (9.7-13.0)
--- NOTE | 2019-12-09 15:56 | HP ---
Admitting History and Physical - Primary Care Physician PCP: Rebecca Villarreal S - Admission Chief Complaint: clotted AVF History of Present Illness: The patient is a 69 year old female with a significant past medical history of ESRD (HD T/W/Sa; last dialysis: Sat), Afib (on eliquis, LVEF 45%), DM, Hyperthyroidism, HCV, and HTN who presents to the emergency department for evaluation of a clotted fistula that was discovered yesterday at dialysis. The patient was admitted 11/10/2019-11/12/2019 for AV shunt blockage. She was also admitted 11/02-11/04 for nonfunctioning AVG, s/p Open thrombectomy AV graft. The patient denies chest/abdominal/back pain, cough, and shortness of breath. Denies fever, chills, nausea, vomiting, and/or any GI symptoms. Denies any s ymptoms. Denies any other symptoms. 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) Cardiovascular: Yes: CHF, HTN, Hyperlipdemia Pulmonary: Yes: Asthma, Pneumonia, Other (ILD) Gastrointestinal: Yes: Constipation, GERD Hepatobiliary: Yes: Hepatitis C Renal/: Yes: Renal Inusuff ...LMP: 03/04/94 ...: No Heme/Onc: Yes: Anemia Musculoskeletal: Yes: Osteoarthritis Endocrine: Yes: Diabetes Mellitus, Hyperthyroidism, Other - Past Surgical History Past Surgical History: Yes: , Hysterectomy, Appendectomy, Colonoscopy - Smoking History Smoking history: Never smoked Have you smoked in the past 12 months: No Aproximately how many cigarettes per day: 0 - Alcohol/Substance Use Hx Alcohol Use: No History of Substance Use: reports: None - Social History Usual Living Arrangement: Yes: With Child Do you think of yourself as: Straight/Heterosexual ADL: Independent History of Recent Travel: No Home Medications - Allergies Allergies/Adverse Reactions: Allergies Allergy/AdvReac Type Severity Reaction Status Date / Time mushroom Allergy Severe Rash Verified 12/09/19 11:06 nut - unspecified [nut] Allergy Severe "HIVES,THROAT Verified 12/09/19 11:06 CLOSES" povidone-iodine Allergy Severe Rash Verified 12/09/19 11:06 [From Betadine] soap [From Betadine] Allergy Severe Rash Verified 12/09/19 11:06 Fish Containing Products AdvReac Severe Swelling Verified 12/09/19 11:06 - Home Medications Home Medications: Ambulatory Orders Diltiazem [Cardizem -] 30 mg PO BID 07/10/16 Escitalopram Oxalate [Lexapro -] 5 mg PO DAILY 07/10/16 Apixaban [Eliquis] 5 mg PO BID 11/18/17 Methimazole [Tapazole] 5 mg PO DAILY 11/18/17 Atorvastatin Ca [Lipitor] 40 mg PO DAILY 03/14/19 Lisinopril 7.5 mg PO BID 03/14/19 Metoprolol Tartrate 50 mg PO DAILY 03/14/19 Albuterol 2.5/Ipratropium 0.5 [Duoneb -] 1 amp NEB RTID amp 03/21/19 Budesonide/Formeterol Fumarate [SYMBICORT 160/4.5mcg -] 2 puff IH BID inhaler 03/21/19 Furosemide [Lasix -] 80 mg PO DAILY tablet 05/06/19 Oxycodone HCl/Acetaminophen [Percocet 5-325 mg Tablet] 1 combo PO Q4H PRN tablet 11/05/19 Acetaminophen [Tylenol .Regular Strength -] 325 mg PO Q4H PRN tablet 11/10/19 Family Medical History Family History: Unremarkable Review of Systems - Review of Systems Constitutional: denies: Chills, Fever Eyes: denies: Blind Spots, Blurred Vision HENT: denies: Ear Pain, Epistaxis Neck: denies: Stiffness, Tenderness Cardiovascular: denies: Chest Pain, Edema, Palpitations, Shortness of Breath Respiratory: denies: Cough, Exercise Intolerance, Hemoptysis, Orthopnea, PND, SOB, SOB on Exertion, Wheezing Gastrointestinal: denies: Abdominal Pain, Constipation, Diarrhea, Vomiting Genitourinary: denies: Dysuria, Flank Pain Musculoskeletal: denies: Back Pain, Extremity Pain Integumentary: denies: Rash, Wound Neurological: denies: Change in LOC, Change in Speech, Confusion, Dizziness, Headache, Seizure, Syncope, Unsteady Gait, Weakness Hematology/Lymphatic: denies: Easily Bruised, Excessive Bleeding Psychiatric: denies: Altered Sleep Pattern, Anxiety, Depression, Suicidal Physical Examination Vital Signs: Vital Signs Temperature 97.7 F 12/09/19 11:02 Pulse Rate 63 12/09/19 11:02 Respiratory Rate 21 H 12/09/19 11:02 Blood Pressure 126/69 12/09/19 11:02 O2 Sat by Pulse Oximetry (%) 96 12/09/19 11:02 Constitutional: Yes: No Distress, Calm Eyes: Yes: Conjunctiva Clear HENT: Yes: Atraumatic Neck: Yes: Supple Cardiovascular: Yes: Regular Rate and Rhythm Respiratory: Yes: CTA Bilaterally Gastrointestinal: Yes: Soft. No: Tenderness Renal/: No: Hematuria Musculoskeletal: No: Joint Stiffness, Joint Swelling Extremities: Yes: Other (L AVF). No: Cold, Cool, Cyanosis Edema: No Integumentary: No: Rash, Venous Stasis Changes Neurological: Yes: Alert, Oriented ...Motor Strength: WNL Psychiatric: Yes: Alert, Oriented. No: Agitated, Suicidal Ideation Labs: CBC, BMP 12/09/19 15:00 Imaging - Results Other: Report Reviewed Assessment/Plan The patient is a 69 year old female with a significant past medical history of ESRD (HD T/W/Sa; last dialysis: Sat), Afib (on eliquis, LVEF 45%), DM, Hyperthyroidism, HCV, and HTN who presents to the emergency department for evaluation of a clotted fistula that was discovered yesterday at dialysis. The patient was admitted 11/10/2019-11/12/2019 for AV shunt blockage. She was also admitted 11/02-11/04 for nonfunctioning AVG, s/p Open thrombectomy AV graft. EKG no change from before, cardiac avila asymtpomatic; on eliquis; renal and vascular surgery eval HD per renal d/w pt and staff
[2019-12-09 16:12] LABS: BILIRUBIN,TOTAL 0.6 mg/dL (0.2-1); BLOOD UREA NITROGEN 37.8 mg/dL (7-18); CALCIUM 8.7 mg/dL (8.5-10.1); POTASSIUM 4.6 mmol/L (3.5-5.1); TOT PROT 7.3 g/dl (6.4-8.2)
[2019-12-09 16:24] LABS: CREATININE 8.8 mg/dL (0.55-1.3)
[2019-12-09] MEDS ORDERED: ACETAMINOPHEN 325 MG TABLET (FP) PO PRN (18:09)
[2019-12-09] MEDS: SODIUM ZIRCONIUM CYCLOSILICATE (LOKELMA) 5 GM PACKET PO SCH (19:00)
[2019-12-09] MEDS ORDERED: APIXABAN 5 MG TABLET PO SCH (22:00)
[2019-12-09] MEDS ORDERED: dilTIAZem HCL 30 MG TABLET ONE (22:12)
[2019-12-09] MEDS ORDERED: APIXABAN 5 MG TABLET ONE (22:12)
[2019-12-09] MEDS ORDERED: LISINOPRIL 5 MG TABLET ONE (22:13)
[2019-12-09] MEDS: dilTIAZem HCL 30 MG TABLET PO SCH (22:28)
[2019-12-09] MEDS: LISINOPRIL 5 MG TABLET PO SCH (22:28)
[2019-12-09] MEDS: BUDESONIDE/FORMETEROL FUMARATE 160/4.5 mcg INHALER IH SCH (22:28)
[2019-12-10 07:07] LABS: BLOOD UREA NITROGEN 45.3 mg/dL (7-18); CALCIUM 8.1 mg/dL (8.5-10.1); POTASSIUM 4.3 mmol/L (3.5-5.1)
[2019-12-10 07:14] LABS: CREATININE 9.4 mg/dL (0.55-1.3)
--- NOTE | 2019-12-10 08:35 | CONSULT ---
<Tj Cedillo P - Last Filed: 12/10/19 08:45> - Consultation REQUESTING PROVIDER: Vascular Surgery - Jonas Oakes CONSULT REQUEST: We have been asked to surgically evaluate this patient for clotted LUE AVG Hospitalist: Rebecca Villarreal HPI: Called to eval 69 yo female admitted with clotted LUE AVG. Patient very well known to our Surgery Service as we have participated in multiple ER visits for reoccurring problem necessitating OR intervention. S/p Open thrombectomy AV graft. Venogram 11/03/2019 ([facility]). PMHx: CVA (transient speech loss and left hemiparesis in 2012), CHF, HTN, Hyperlipdemia, Asthma, Pneumonia, Other (ILD), Constipation, GERD, Hepatitis C, Renal Inusuff, Osteoarthritis, Diabetes Mellitus, Hyperthyroidism, Renal Coloic/hydronephrosis PSHx: Hysterectomy Appendectomy Colonoscopy Open thrombectomy AV graft. Venogram 11/03/2019 ([facility]) Cysto, R RUG, ureteral stent placement 03/2019 Home Medications Diltiazem [Cardizem -] 30 mg PO BID 07/10/16 Escitalopram Oxalate [Lexapro -] 5 mg PO DAILY 07/10/16 Apixaban [Eliquis] 5 mg PO BID 11/18/17 Methimazole [Tapazole] 5 mg PO DAILY 11/18/17 Atorvastatin Ca [Lipitor] 40 mg PO DAILY 03/14/19 Lisinopril 7.5 mg PO BID 03/14/19 Metoprolol Tartrate 50 mg PO DAILY 03/14/19 Albuterol 2.5/Ipratropium 0.5 [Duoneb -] 1 amp NEB RTID amp 03/21/19 Budesonide/Formeterol Fumarate [SYMBICORT 160/4.5mcg -] 2 puff IH BID inhaler 03/21/19 Furosemide [Lasix -] 80 mg PO DAILY tablet 05/06/19 Oxycodone HCl/Acetaminophen [Percocet 5-325 mg Tablet] 1 combo PO Q4H PRN tablet 11/05/19 Acetaminophen [Tylenol .Regular Strength -] 325 mg PO Q4H PRN tablet 11/10/19 Allergies mushroom Allergy Severe Rash Verified 12/09/19 11:06 nut - unspecified [nut] Allergy Severe "HIVES,THROAT Verified 12/09/19 11:06 CLOSES" povidone-iodine Allergy Severe Rash Verified 12/09/19 11:06 [From Betadine] soap [From Betadine] Allergy Severe Rash Verified 12/09/19 11:06 Fish Containing Products AdvReac Severe Swelling Verified 12/09/19 11:06 ROS: 12 Systems reviewed and considered negative except for what's contained in the HPI. PE: GENERAL: A&O. NAD HEAD: Normal with no signs of trauma. EYES: PERRL, sclera anicteric, conjunctiva clear. NECK: Normal ROM, supple without lymphadenopathy, JVD, or masses. LUNGS: Unlabored respirations on room air. HEART: RRR ABDOMEN: Soft, nontender, not distended, normoactive bowel sounds LUE: No palpable thrill or auscultated bruit over AVG. Radial 2+, hand warm, well-perfused. No cyanosis. Cap refill <2 seconds. No peripheral edema. PSYCH: Cooperative. Good eye contact. Appropriate mood and affect. Last Vital Signs Temp Pulse Resp BP Pulse Ox 98.0 F 55 L 20 130/51 L 100 12/10/19 07:33 12/10/19 07:33 12/10/19 07:33 12/10/19 07:33 12/10/19 07:33 CBC, BMP 12/09/19 15:00 12/10/19 06:00 Blood Type Blood Type O POSITIVE 12/09/19 15:00 INR, PTT INR 1.63 (0.83-1.09) H 12/09/19 15:00 Serology Tests 12/09/19 18:40 COVID-19 ([facility]) Pending A/P: 69 yo female admitted with clotted LUE AVG. -Pre-op for LUE HeRO Graft 12/11/19 -Covid pending; Strict isolation -Eliquis on hold (started 8:30am 12/10/19); set to resume 12/12/19 -Limb Alert to LUE -Medical optimization / clearance -Will place [facility] today then HD Above plan discussed with Dr. Oakes and agrees. Problem List - Problems (1) Clotted renal dialysis AV graft Code(s): T82.868A - THROMBOSIS DUE TO VASCULAR PROSTH DEV/GRFT, INIT Qualifiers: Encounter type: initial encounter Qualified Code(s): T82.868A - Thrombosis due to vascular prosthetic devices, implants and grafts, initial encounter (2) Anemia Code(s): D64.9 - ANEMIA, UNSPECIFIED Qualifiers: Other causes of anemia: chronic disease, kidney (3) Diabetes Code(s): E11.9 - TYPE 2 DIABETES MELLITUS WITHOUT COMPLICATIONS Qualifiers: Diabetes mellitus type: type 2 Diabetes mellitus complication status: with neurologic complications Diabetes mellitus complication detail: with autonomic neuropathy (4) Diastolic CHF Code(s): I50.30 - UNSPECIFIED DIASTOLIC (CONGESTIVE) HEART FAILURE (5) Hepatitis C Code(s): B19.20 - UNSPECIFIED VIRAL HEPATITIS C WITHOUT HEPATIC COMA (6) Hypertension Code(s): I10 - ESSENTIAL (PRIMARY) HYPERTENSION Visit type - Case Type Case Type: ED Admission - Emergency Emergency Visit: Yes ED Registration Date: 12/09/19 Care time: The patient presented to the Emergency Department on the above date and was hospitalized for further evaluation of their emergent condition. - New patient This patient is new to me today: Yes Date on this admission: 12/10/19 <Jonas Oakes - Last Filed: 12/11/19 18:57> - Consultation REQUESTING PROVIDER: CONSULT REQUEST: We have been asked to surgically evaluate this patient for (specify). Hospitalist:Rebecca Villarreal HISTORY OF PRESENT ILLNESS: PMHx: PSHx: Home Medications Medication Instructions Recorded Diltiazem [Cardizem -] 30 mg PO BID 07/10/16 Escitalopram Oxalate [Lexapro -] 5 mg PO DAILY 07/10/16 Apixaban [Eliquis] 5 mg PO BID 11/18/17 Methimazole [Tapazole] 5 mg PO DAILY 11/18/17 Atorvastatin Ca [Lipitor] 40 mg PO DAILY 03/14/19 Lisinopril 7.5 mg PO BID 03/14/19 Metoprolol Tartrate 50 mg PO DAILY 03/14/19 Albuterol 2.5/Ipratropium 0.5 1 amp NEB RTID amp 03/21/19 [Duoneb -] Budesonide/Formeterol Fumarate 2 puff IH BID inhaler 03/21/19 [SYMBICORT 160/4.5mcg -] Furosemide [Lasix -] 80 mg PO DAILY tablet 05/06/19 Oxycodone HCl/Acetaminophen 1 combo PO Q4H PRN tablet 11/05/19 [Percocet 5-325 mg Tablet] Acetaminophen [Tylenol .Regular 325 mg PO Q4H PRN tablet 11/10/19 Strength -] Allergies Allergy/AdvReac Type Severity Reaction Status Date / Time mushroom Allergy Severe Rash Verified 12/09/19 11:06 nut - unspecified [nut] Allergy Severe "HIVES,THROAT Verified 12/09/19 11:06 CLOSES" povidone-iodine Allergy Severe Rash Verified 12/09/19 11:06 [From Betadine] soap [From Betadine] Allergy Severe Rash Verified 12/09/19 11:06 Fish Containing Products AdvReac Severe Swelling Verified 12/09/19 11:06 REVIEW OF SYSTEMS: CONSTITUTIONAL: Absent: fever, chills, diaphoresis, generalized weakness, malaise, loss of appetite, weight change CARDIOVASCULAR: Absent: chest pain, syncope, palpitations, irregular heart rate, lightheadedness, peripheral edema RESPIRATORY: Absent: cough, shortness of breath, dyspnea with exertion, wheezing, stridor, hemoptysis GASTROINTESTINAL: Absent: abdominal pain, abdominal distension, nausea, vomiting, diarrhea, constipation, melena, hematochezia GENITOURINARY: Absent: dysuria, frequency, urgency, hesitancy, hematuria, flank pain, genital pain MUSCULOSKELETAL: Absent: myalgia, arthralgia, joint swelling, back pain, neck pain SKIN: Absent: rash, itching, pallor HEMATOLOGIC/IMMUNOLOGIC: Absent: easy bleeding, easy bruising, lymphadenopathy NEUROLOGIC: Absent: headache, focal weakness, paresthesias, dizziness, unsteady gait, seizure, mental status changes, bladder or bowel incontinence PSYCHIATRIC: Absent: anxiety, depression, suicidal or homicidal ideation, hallucinations. PHYSICAL EXAM: GENERAL: Awake, alert, and fully oriented, in no acute distress. HEAD: Normal with no signs of trauma. EYES: PERRL, sclera anicteric, conjunctiva clear. NECK: Normal ROM, supple without lymphadenopathy, JVD, or masses. LUNGS: Clear to auscultation bilat anteriorly. No wheezes, and no crackles. No accessory muscle use. HEART: Regular rate and rhythm. No murmurs ABDOMEN: Soft, nontender, not distended, normoactive bowel sounds, no guarding, no rebound, no masses. No organomegaly. MUSCULOSKELETAL: Normal ROM at all joints. No bony deformities or tenderness. No CVA tenderness. UPPER EXTREMITIES: 2+ pulses, warm, well-perfused. No cyanosis. Cap refill <2 seconds. No peripheral edema. LOWER EXTREMITIES: 2+ pulses, warm, well-perfused. No calf tenderness. No peripheral edema. NEUROLOGICAL: Normal speech, gait not observed. PSYCH: Cooperative. Good eye contact. Appropriate mood and affect. SKIN: Warm, dry, normal turgor, no rashes or lesions noted. Vital Signs Temperature 98.4 F 12/11/19 10:00 Pulse Rate 60 12/11/19 10:00 Respiratory Rate 20 12/11/19 10:00 Blood Pressure 143/65 12/11/19 10:00 O2 Sat by Pulse Oximetry (%) 95 12/11/19 10:00 Lab Results WBC 8.9 K/mm3 (4.0-10.0) 12/11/19 08:00 RBC 3.96 M/mm3 (3.60-5.2) 12/11/19 08:00 Hgb 10.7 GM/dL (10.7-15.3) 12/11/19 08:00 Hct 32.5 % (32.4-45.2) 12/11/19 08:00 MCV 82.2 fl (80-96) 12/11/19 08:00 MCHC 32.9 g/dl (32.0-36.0) 12/11/19 08:00 RDW 19.7 % (11.6-15.6) H 12/11/19 08:00 Plt Count 202 K/MM3 (134-434) 12/11/19 08:00 INR 1.63 (0.83-1.09) H 12/09/19 15:00 Sodium 130 mmol/L (136-145) L 12/11/19 08:00 Potassium 4.5 mmol/L (3.5-5.1) 12/11/19 08:00 Chloride 93 mmol/L (98-107) L 12/11/19 08:00 Carbon Dioxide 26 mmol/L (21-32) 12/11/19 08:00 Anion Gap 10 MMOL/L (8-16) 12/11/19 08:00 BUN 55.1 mg/dL (7-18) H 12/11/19 08:00 Creatinine 9.9 mg/dL (0.55-1.3) H* 12/11/19 08:00 Random Glucose 70 mg/dL (74-106) L 12/11/19 08:00 Calcium 8.4 mg/dL (8.5-10.1) L 12/11/19 08:00 Blood Type O POSITIVE 12/09/19 15:00 Antibody Screen Positive 12/09/19 15:00 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 There is an innominate vein stent with stenosis. Placement of a new HeRO graft will hopefully rediuce the frequency of thrombosis.
[2019-12-10] MEDS ORDERED: ATORVASTATIN CA 40 MG TABLET (FP) ONE (10:06)
[2019-12-10] MEDS ORDERED: FUROSEMIDE 40 MG TABLET (FP) ONE (10:06)
[2019-12-10] MEDS ORDERED: LISINOPRIL 5 MG TABLET ONE (10:06)
[2019-12-10] MEDS ORDERED: ESCITALOPRAM OXALATE 10 MG TABLET ONE (10:06)
[2019-12-10] MEDS ORDERED: METOPROLOL TARTRATE 50 MG TABLET (FP) ONE (10:06)
[2019-12-10] MEDS ORDERED: dilTIAZem HCL 30 MG TABLET ONE (10:06)
[2019-12-10] MEDS: dilTIAZem HCL 30 MG TABLET PO SCH ×2 (10:10→22:03)
[2019-12-10] MEDS: LISINOPRIL 5 MG TABLET PO SCH ×2 (10:11→22:02)
[2019-12-10] MEDS: ESCITALOPRAM OXALATE 10 MG TABLET PO SCH (10:11)
[2019-12-10] MEDS: METOPROLOL TARTRATE 50 MG TABLET (FP) PO SCH (10:11)
[2019-12-10] MEDS: FUROSEMIDE 40 MG TABLET (FP) PO SCH (10:11)
[2019-12-10] MEDS: ATORVASTATIN CA 40 MG TABLET (FP) PO SCH (10:11)
[2019-12-10] MEDS: SODIUM ZIRCONIUM CYCLOSILICATE (LOKELMA) 5 GM PACKET PO SCH (10:18)
[2019-12-10] MEDS: BUDESONIDE/FORMETEROL FUMARATE 160/4.5 mcg INHALER IH SCH ×2 (10:50→22:09)
[2019-12-10] MEDS: METHIMAZOLE 5 MG TABLET (FP) PO SCH (10:50)
--- NOTE | 2019-12-10 12:25 | CON.CARD ---
Cardiology Consult (text) - Consultation Consultation Note: cc: avf clot hpi: 69 yo F here with avf clot. Otherwise feeling well. No cp spb palps dizzy loc pnd orthopnea le edema. Sees Dr Arriaza for cardio. 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) Cardio/Vascular: Yes: CHF (end diastolic), HTN, Hyperlipdemia Pulmonary: Yes: Asthma, Pneumonia, Other (ILD) Gastrointestinal: Yes: Constipation, GERD Hepatobiliary: Yes: Hepatitis C Renal/: Yes: Renal Inusuff Musculoskeletal: Yes: Osteoarthritis Endocrine: Yes: Diabetes Mellitus (diabetic retinopathy ( treated ) and neuropathy), Hyperthyroidism (Graves Disease with thyroid nodule), Other (THYROID DISEASE) - Past Surgical History Past Surgical History: Yes: , Hysterectomy, Appendectomy, Colonoscopy - Alcohol/Substance Use Hx Alcohol Use: No History of Substance Use: reports: None - Smoking History Have you smoked in the past 12 months: No Aproximately how many cigarettes per day: 0 - Social History Usual Living Arrangement: Alone ADL: Independent History of Recent Travel: No Home Medications Current Medications Generic Name Dose Route Start Last Admin Trade Name Freq PRN Reason Stop Dose Admin Acetaminophen 325 mg 12/09/19 18:09 Tylenol - PO Q4H PRN PAIN LEVEL 7 - 10 Albuterol/Ipratropium 1 amp 12/09/19 18:09 Duoneb - NEB RTID PRN WHEEZING Apixaban 5 mg 12/09/19 22:00 12/09/19 22:28 Eliquis - PO 5 mg BID EMELINA Administration Atorvastatin Calcium 40 mg 12/10/19 10:00 12/10/19 10:11 Lipitor - PO 40 mg DAILY EMELINA Administration Budesonide/Formoterol Fumarate 2 puff 12/09/19 22:00 12/10/19 10:50 Symbicort 160/4.5mcg - IH Not Given BID EMELINA Diltiazem HCl 30 mg 12/09/19 22:00 12/10/19 10:10 Cardizem - PO 30 mg BID EMELINA Administration Escitalopram Oxalate 5 mg 12/10/19 10:00 12/10/19 10:11 Lexapro - PO 5 mg DAILY EMELINA Administration Furosemide 80 mg 12/10/19 10:00 12/10/19 10:11 Lasix - PO 80 mg DAILY EMELINA Administration Lisinopril 7.5 mg 12/09/19 22:00 12/10/19 10:11 Prinivil PO 7.5 mg BID EMELINA Administration Methimazole 5 mg 12/10/19 10:00 12/10/19 10:50 Tapazole - PO 5 mg DAILY EMELINA Administration Metoprolol Tartrate 50 mg 12/10/19 10:00 12/10/19 10:11 Lopressor - PO 50 mg DAILY EMELINA Administration Sodium Zirconium Cyclosilicate 5 gm 12/09/19 16:30 12/10/19 10:18 Lokelma PO Not Given DAILY EMELINA - Family Disease History Family Disease History: Diabetes: Mother, Brother Review of Systems per hpi, all others nl Vital Signs Period Temp Pulse Resp BP Sys/Chavarria Pulse Ox Last 24 Hr 98.0 F-98.9 F 55-61 16-20 130-160/51-72 96-100 Constitutional: Yes: Well Nourished, No Distress Eyes: No: Sclera Icterus HENT: No: Nasal Congestion Respiratory: Yes: CTA Bilaterally. No: Accessory Muscle Use, Rales, Wheezes Gastrointestinal: Yes: Normal Bowel Sounds. No: Distention, Hepatomegaly, Palpable Mass, Tenderness Cardiovascular: Yes: Regular Rate and Rhythm JVD: No Carotid Bruit: No PMI: Non-Displaced Heart Sounds: Yes: S1, S2. No: Gallop Murmur: No: Systolic Murmur, Diastolic Murmur Extremities: No: Cool, Cyanosis Edema: No Integumentary: No: Jaundice Neurological: Yes: Alert, Oriented (x3) Psychiatric: No: Agitated Laboratory Last Values Laboratory Last Values WBC 9.2 K/mm3 (4.0-10.0) 12/09/19 15:00 RBC 3.89 M/mm3 (3.60-5.2) 12/09/19 15:00 Hgb 10.3 GM/dL (10.7-15.3) L 12/09/19 15:00 Hct 32.4 % (32.4-45.2) 12/09/19 15:00 MCV 83.2 fl (80-96) 12/09/19 15:00 MCH 26.4 pg (25.7-33.7) 12/09/19 15:00 MCHC 31.8 g/dl (32.0-36.0) L 12/09/19 15:00 RDW 19.3 % (11.6-15.6) H 12/09/19 15:00 Plt Count 201 K/MM3 (134-434) 12/09/19 15:00 MPV 8.9 fl (7.5-11.1) 12/09/19 15:00 Absolute Neuts (auto) 5.2 K/mm3 (1.5-8.0) 12/09/19 15:00 Neutrophils % 56.2 % (42.8-82.8) 12/09/19 15:00 Lymphocytes % 24.6 % (8-40) D 12/09/19 15:00 Monocytes % 11.6 % (3.8-10.2) H 12/09/19 15:00 Eosinophils % 6.7 % (0-4.5) H 12/09/19 15:00 Basophils % 0.9 % (0-2.0) 12/09/19 15:00 Nucleated RBC % 0 % (0-0) 12/09/19 15:00 PT with INR 19.30 SEC (9.7-13.0) H 12/09/19 15:00 INR 1.63 (0.83-1.09) H 12/09/19 15:00 PTT (Actin FS) 38.0 SECONDS (25.2-36.5) H 12/09/19 15:00 Sodium 134 mmol/L (136-145) L 12/10/19 06:00 Potassium 4.3 mmol/L (3.5-5.1) 12/10/19 06:00 Chloride 98 mmol/L (98-107) 12/10/19 06:00 Carbon Dioxide 25 mmol/L (21-32) 12/10/19 06:00 Anion Gap 12 MMOL/L (8-16) 12/10/19 06:00 BUN 45.3 mg/dL (7-18) H 12/10/19 06:00 Creatinine 9.4 mg/dL (0.55-1.3) H* 12/10/19 06:00 Est GFR (CKD-EPI)AfAm 4.43 12/10/19 06:00 Est GFR (CKD-EPI)NonAf 3.83 12/10/19 06:00 POC Glucometer 111 UNITS (80-120) 12/09/19 18:00 Random Glucose 85 mg/dL (74-106) 12/10/19 06:00 Calcium 8.1 mg/dL (8.5-10.1) L 12/10/19 06:00 Total Bilirubin 0.6 mg/dL (0.2-1) 12/09/19 15:00 AST 23 U/L (15-37) 12/09/19 15:00 ALT 28 U/L (13-61) 12/09/19 15:00 Alkaline Phosphatase 169 U/L (45-117) H 12/09/19 15:00 Total Protein 7.3 g/dl (6.4-8.2) 12/09/19 15:00 Albumin 3.0 g/dl (3.4-5.0) L 12/09/19 15:00 Blood Type O POSITIVE 12/09/19 15:00 Antibody Screen Positive 12/09/19 15:00 Antibody Identification Anti-jkb 12/09/19 15:00 Antigen Identification No Result Required. 12/09/19 15:00 ECG: sr, 1st avb,no ischemic changes MPI 07/19 (marjan): no isch STs, pt in afib. mid-AW ischemia, distal IW ischemia. fixed apical defect. EF 30%, no TID Echo 07/19: moderate LVE, mildly decr'd LVEF (45%), GLOBAL. nl RV size, mild RV hypo. mild LAE. mod MR. mild pHTN (RVSP 42). nl LAP. a/p: CAD: -2018 stress test with ischemia in RCA and also LAD distributions. -she has been asymptomatic -cont home med regimen: AC (no ASA), statin, bb chronic syst/diast CHF (mixed), moderate MR, mild pHTN: -pt with known mild to moderate vs moderate decrease in LVEF. ? isch CMP (inferoposterior WMAs worse on prior hosp echo review here), ? nonischemic (uncontrolled DM long time, global appearance of hypokinesis on recent imaging) -has been clinically euvolemic for long time, with volume status stable with HD mgmt -continues to appear euvolemic here, outpt wt trend stable. -no audible MR murmur, echo images not concerning for severe MR previously (serial studies) parox AF: -pt incidentally noted to be in afib during stress test 2018 -no recurrence since -on good AVN louis regimen for PSVT prophylaxis--continue same -on Eliquis PSVT: -frequent episodes of very rapid SVT during prior hospital stays, whenever meds are interrupted -tolerating home metoprolol and diltiazem regimen long time, with good arrhythmia control HTN: -stable overall -cont same meds ESRD on HD: -dialysis per renal pulm fibrosis: -hospitalized here previously with unexplained interstitial lung dz picture, no specific dx made on bronch--treated empirically with steroids with good resolution; -per pmd h/o posterior circulation CVA: -on AC, statin hyperthyroidism: -on methimazole preop: -no cardiac contraindications to AVF surgery.
[2019-12-10 14:01] VITALS: BMI 37.0
--- NOTE | 2019-12-10 15:26 | PN ---
Progress Note, Physician History of Present Illness: Seen and examined at the bedside. awake and alert offers no acute complaints. making urine. no N/V/D. - Current Medication List Current Medications: Active Medications Acetaminophen (Tylenol -) 325 mg PO Q4H PRN PRN Reason: PAIN LEVEL 7 - 10 Albuterol/Ipratropium (Duoneb -) 1 amp NEB RTID PRN PRN Reason: WHEEZING Apixaban (Eliquis -) 5 mg PO BID [facility] Last Admin: 12/09/19 22:28 Dose: 5 mg Documented by: Atorvastatin Calcium (Lipitor -) 40 mg PO DAILY [facility] Last Admin: 12/10/19 10:11 Dose: 40 mg Documented by: Budesonide/Formoterol Fumarate (Symbicort 160/4.5mcg -) 2 puff IH BID [facility] Last Admin: 12/10/19 10:50 Dose: Not Given Documented by: Diltiazem HCl (Cardizem -) 30 mg PO BID [facility] Last Admin: 12/10/19 10:10 Dose: 30 mg Documented by: Escitalopram Oxalate (Lexapro -) 5 mg PO DAILY [facility] Last Admin: 12/10/19 10:11 Dose: 5 mg Documented by: Furosemide (Lasix -) 80 mg PO DAILY [facility] Last Admin: 12/10/19 10:11 Dose: 80 mg Documented by: Lisinopril (Prinivil) 7.5 mg PO BID [facility] Last Admin: 12/10/19 10:11 Dose: 7.5 mg Documented by: Methimazole (Tapazole -) 5 mg PO DAILY [facility] Last Admin: 12/10/19 10:50 Dose: 5 mg Documented by: Metoprolol Tartrate (Lopressor -) 50 mg PO DAILY [facility] Last Admin: 12/10/19 10:11 Dose: 50 mg Documented by: Sodium Zirconium Cyclosilicate (Lokelma) 5 gm PO DAILY [facility] Last Admin: 12/10/19 10:18 Dose: Not Given Documented by: - Objective Vital Signs: Vital Signs Temperature 98.4 F 12/10/19 14:00 Pulse Rate 60 12/10/19 14:00 Respiratory Rate 22 H 12/10/19 14:00 Blood Pressure 160/74 12/10/19 14:00 O2 Sat by Pulse Oximetry (%) 99 12/10/19 14:00 Constitutional: Yes: No Distress HENT: Yes: Atraumatic Neck: Yes: Supple Cardiovascular: Yes: Regular Rate and Rhythm Respiratory: Yes: Regular Gastrointestinal: Yes: Soft Extremities: No: Cyanosis Edema: No Labs: CBC, BMP 12/09/19 15:00 12/10/19 06:00 INR, PTT INR 1.63 (0.83-1.09) H 12/09/19 15:00 Assessment/Plan 69 year old woman with history of ESRD on HD, Hepatitis C, atrial fibrillation on Eliquis, DM, hypertension who presented from dialysis with non-functioning AVG 1. Clotted AVG 2. ESRD on HD 3. Hypertension 4. CKD related anemia 5. Renal Osteodystrophy 6. Atrial fibrillation on Eliquis 7. DM Doppler shows occlusion of AVF/AVG There is no hyperkalemia or acidosis to warrant emergent dialysis. No evidence of volume overload Renal diet, 1.2L daily fluid restriction Planned for new HeRo Graft placement per vascular surgery tomorrow. Will plan dialysis following new access placement. Continue Lokelma daily. Check CBC. Check Phos, continue phos binder with meals Eliquis on hold for planned procedure. Thank camila Paz DO
--- NOTE | 2019-12-10 15:46 | EKG ---
Test Reason : Blood Pressure : / mmHG Vent. Rate : 066 BPM Atrial Rate : 066 BPM P-R Int : 306 ms QRS Dur : 100 ms QT Int : 452 ms P-R-T Axes : 022 -30 086 degrees QTc Int : 473 ms SINUS RHYTHM WITH 1ST DEGREE A-V BLOCK WITH OCCASIONAL PREMATURE VENTRICULAR COMPLEXES LEFT AXIS DEVIATION CANNOT RULE OUT ANTERIOR INFARCT (CITED ON OR BEFORE 13-MAR-2018) ABNORMAL ECG WHEN COMPARED WITH ECG OF 09-DEC-2019 12:55, PREMATURE VENTRICULAR COMPLEXES ARE NOW PRESENT Confirmed by NIKI PERDOMO MD ([id number]) on 12/10/2019 3:46:32 PM Referred By: Confirmed By:NIKI PERDOMO MD
--- NOTE | 2019-12-10 16:37 | PN ---
Progress Note, Physician Chief Complaint: in bed NAD had some palpitations and axiety earlier (spent night in ER now on the floor 5S) seen by cardio - Current Medication List Current Medications: Active Medications Acetaminophen (Tylenol -) 325 mg PO Q4H PRN PRN Reason: PAIN LEVEL 7 - 10 Albuterol/Ipratropium (Duoneb -) 1 amp NEB RTID PRN PRN Reason: WHEEZING Apixaban (Eliquis -) 5 mg PO BID [facility] Last Admin: 12/09/19 22:28 Dose: 5 mg Documented by: Atorvastatin Calcium (Lipitor -) 40 mg PO DAILY [facility] Last Admin: 12/10/19 10:11 Dose: 40 mg Documented by: Budesonide/Formoterol Fumarate (Symbicort 160/4.5mcg -) 2 puff IH BID [facility] Last Admin: 12/10/19 10:50 Dose: Not Given Documented by: Diltiazem HCl (Cardizem -) 30 mg PO BID [facility] Last Admin: 12/10/19 10:10 Dose: 30 mg Documented by: Escitalopram Oxalate (Lexapro -) 5 mg PO DAILY [facility] Last Admin: 12/10/19 10:11 Dose: 5 mg Documented by: Furosemide (Lasix -) 80 mg PO DAILY [facility] Last Admin: 12/10/19 10:11 Dose: 80 mg Documented by: Lisinopril (Prinivil) 7.5 mg PO BID [facility] Last Admin: 12/10/19 10:11 Dose: 7.5 mg Documented by: Methimazole (Tapazole -) 5 mg PO DAILY [facility] Last Admin: 12/10/19 10:50 Dose: 5 mg Documented by: Metoprolol Tartrate (Lopressor -) 50 mg PO DAILY [facility] Last Admin: 12/10/19 10:11 Dose: 50 mg Documented by: Sodium Zirconium Cyclosilicate (Lokelma) 5 gm PO DAILY [facility] Last Admin: 12/10/19 10:18 Dose: Not Given Documented by: - Objective Vital Signs: Vital Signs Temperature 98.4 F 12/10/19 14:00 Pulse Rate 60 12/10/19 14:00 Respiratory Rate 22 H 12/10/19 14:00 Blood Pressure 160/74 12/10/19 14:00 O2 Sat by Pulse Oximetry (%) 99 12/10/19 14:00 Constitutional: Yes: No Distress, Calm Eyes: Yes: Conjunctiva Clear HENT: Yes: Atraumatic Neck: Yes: Supple Cardiovascular: Yes: Regular Rate and Rhythm Respiratory: Yes: CTA Bilaterally Gastrointestinal: Yes: Soft. No: Tenderness Genitourinary: No: Hematuria Musculoskeletal: No: Joint Stiffness, Joint Swelling Extremities: No: Cold, Cool Edema: No Integumentary: No: Rash Neurological: Yes: Alert, Oriented ...Motor Strength: WNL Psychiatric: Yes: Alert, Oriented. No: Agitated, Suicidal Ideation Labs: CBC, BMP 12/09/19 15:00 12/10/19 06:00 INR, PTT INR 1.63 (0.83-1.09) H 12/09/19 15:00 - ....Imaging Other: Report Reviewed Assessment/Plan The patient is a 69 year old female with a significant past medical history of ESRD (HD T/W/Sa; last dialysis: Sat), Afib (on eliquis, LVEF 45%), DM, Hyperthyroidism, HCV, and HTN admitted with clotted fistula EKG no change from before, seen by cardio hold rose mary per surgery; renal and vascular surgery eval - for AVF recannalization HD per renal d/w pt and staff
--- NOTE | 2019-12-11 08:42 | PN ---
Progress Note, Physician Chief Complaint: in bed NPO awaiting surgery thrombosed AVF no CP SOB palp - Current Medication List Current Medications: Active Medications Acetaminophen (Tylenol -) 325 mg PO Q4H PRN PRN Reason: PAIN LEVEL 7 - 10 Albuterol/Ipratropium (Duoneb -) 1 amp NEB RTID PRN PRN Reason: WHEEZING Apixaban (Eliquis -) 5 mg PO BID [facility] Last Admin: 12/09/19 22:28 Dose: 5 mg Documented by: Atorvastatin Calcium (Lipitor -) 40 mg PO DAILY [facility] Last Admin: 12/10/19 10:11 Dose: 40 mg Documented by: Budesonide/Formoterol Fumarate (Symbicort 160/4.5mcg -) 2 puff IH BID [facility] Last Admin: 12/10/19 22:09 Dose: Not Given Documented by: Diltiazem HCl (Cardizem -) 30 mg PO BID [facility] Last Admin: 12/10/19 22:03 Dose: 30 mg Documented by: Escitalopram Oxalate (Lexapro -) 5 mg PO DAILY [facility] Last Admin: 12/10/19 10:11 Dose: 5 mg Documented by: Furosemide (Lasix -) 80 mg PO DAILY [facility] Last Admin: 12/10/19 10:11 Dose: 80 mg Documented by: Lisinopril (Prinivil) 7.5 mg PO BID [facility] Last Admin: 12/10/19 22:02 Dose: 7.5 mg Documented by: Methimazole (Tapazole -) 5 mg PO DAILY [facility] Last Admin: 12/10/19 10:50 Dose: 5 mg Documented by: Metoprolol Tartrate (Lopressor -) 50 mg PO DAILY [facility] Last Admin: 12/10/19 10:11 Dose: 50 mg Documented by: Sodium Zirconium Cyclosilicate (Lokelma) 5 gm PO DAILY [facility] Last Admin: 12/10/19 10:18 Dose: Not Given Documented by: - Objective Vital Signs: Vital Signs Temperature 98.9 F 12/11/19 06:00 Pulse Rate 62 12/11/19 06:00 Respiratory Rate 20 12/11/19 06:00 Blood Pressure 132/67 12/11/19 06:00 O2 Sat by Pulse Oximetry (%) 98 12/11/19 06:00 Constitutional: Yes: No Distress, Calm Eyes: Yes: Conjunctiva Clear HENT: Yes: Atraumatic Neck: Yes: Supple Cardiovascular: Yes: Regular Rate and Rhythm Respiratory: Yes: CTA Bilaterally Gastrointestinal: Yes: Soft. No: Tenderness Musculoskeletal: No: Joint Stiffness, Joint Swelling Extremities: Yes: Other (L AVF). No: Cold, Cool Edema: No Integumentary: No: Rash, Venous Stasis Changes Neurological: Yes: Alert, Oriented ...Motor Strength: WNL Psychiatric: Yes: Alert, Oriented. No: Agitated, Suicidal Ideation Labs: CBC, BMP 12/09/19 15:00 12/10/19 06:00 INR, PTT INR 1.63 (0.83-1.09) H 12/09/19 15:00 - ....Imaging Other: Report Reviewed Assessment/Plan The patient is a 69 year old female with a significant past medical history of ESRD (HD T/W/Sa; last dialysis: Sat), Afib (on eliquis, LVEF 45%), DM, Hyperthyroidism, HCV, and HTN admitted with clotted fistula EKG no change from before, seen by cardio hold rose mary per surgery; renal and vascular surgery eval - for AVF recannalization HD per renal - f.u labs d/w pt and staff
[2019-12-11 08:59] LABS: HEMATOCRIT 32.5 % (32.4-45.2); HEMOGLOBIN 10.7 GM/dL (10.7-15.3); MCHC 32.9 g/dl (32.0-36.0); MEAN CELL VOLUME 82.2 fl (80-96); MEAN PLT VOLUME 9.8 fl (7.5-11.1); PLATELET COUNT 202 K/MM3 (134-434); RBC 3.96 M/mm3 (3.60-5.2); RDW 19.7 % (11.6-15.6); WHITE BLOOD COUNT 8.9 K/mm3 (4.0-10.0)
[2019-12-11] MEDS ORDERED: ALBUTEROL SO4 2.5/IPRATROPIUM 0.5 INH SOL 3 ML VIAL.NEB. NEB PRN ×2 (09:21→19:27)
[2019-12-11 09:23] LABS: BLOOD UREA NITROGEN 55.1 mg/dL (7-18); CALCIUM 8.4 mg/dL (8.5-10.1); POTASSIUM 4.5 mmol/L (3.5-5.1)
[2019-12-11] MEDS ORDERED: PT OWN MED DRAWER 7, Y5N ONE (09:38)
[2019-12-11 09:39] LABS: CREATININE 9.9 mg/dL (0.55-1.3)
[2019-12-11] MEDS: METOPROLOL TARTRATE 50 MG TABLET (FP) PO SCH (09:57)
[2019-12-11] MEDS: FUROSEMIDE 40 MG TABLET (FP) PO SCH (09:57)
[2019-12-11] MEDS: LISINOPRIL 5 MG TABLET PO SCH ×2 (09:57→23:39)
[2019-12-11] MEDS: METHIMAZOLE 5 MG TABLET (FP) PO SCH (09:58)
[2019-12-11] MEDS: dilTIAZem HCL 30 MG TABLET PO SCH ×2 (09:58→23:38)
[2019-12-11] MEDS: ATORVASTATIN CA 40 MG TABLET (FP) PO SCH (09:59)
[2019-12-11] MEDS: ESCITALOPRAM OXALATE 10 MG TABLET PO SCH (09:59)
[2019-12-11] MEDS: SODIUM ZIRCONIUM CYCLOSILICATE (LOKELMA) 5 GM PACKET PO SCH (09:59)
[2019-12-11] MEDS: BUDESONIDE/FORMETEROL FUMARATE 160/4.5 mcg INHALER IH SCH ×2 (09:59→23:37)
[2019-12-11] MEDS ORDERED: LIDOCAINE HCL 1%, 10 MG/ML (20ML VIAL) ONE (15:29)
[2019-12-11] MEDS ORDERED: POVIDONE-IODINE OINTMENT 10% - 28.4 GM TUBE ONE (15:29)
[2019-12-11] MEDS ORDERED: HEPARIN NA (PORCINE) 5,000 UNITS/ML 1ML VIAL ONE (15:29)
[2019-12-11] MEDS ORDERED: SODIUM CHLORIDE 250 ML IV PRN (16:09)
--- NOTE | 2019-12-11 16:09 | PN ---
Progress Note, Physician History of Present Illness: Seen and examined at the bedside. awake and alert offers no acute complaints. making urine. no N/V/D. denies any CP, shortness of breath. NPO for OR today. - Current Medication List Current Medications: Active Medications Acetaminophen (Tylenol -) 325 mg PO Q4H PRN PRN Reason: PAIN LEVEL 7 - 10 Albuterol/Ipratropium (Duoneb -) 1 amp NEB RTID PRN PRN Reason: WHEEZING Apixaban (Eliquis -) 5 mg PO BID [facility] Last Admin: 12/09/19 22:28 Dose: 5 mg Documented by: Atorvastatin Calcium (Lipitor -) 40 mg PO DAILY [facility] Last Admin: 12/11/19 09:59 Dose: Not Given Documented by: Budesonide/Formoterol Fumarate (Symbicort 160/4.5mcg -) 2 puff IH BID [facility] Last Admin: 12/11/19 09:59 Dose: 2 puff Documented by: Diltiazem HCl (Cardizem -) 30 mg PO BID [facility] Last Admin: 12/11/19 09:58 Dose: 30 mg Documented by: Escitalopram Oxalate (Lexapro -) 5 mg PO DAILY [facility] Last Admin: 12/11/19 09:59 Dose: Not Given Documented by: Furosemide (Lasix -) 80 mg PO DAILY [facility] Last Admin: 12/11/19 09:57 Dose: 80 mg Documented by: Lisinopril (Prinivil) 7.5 mg PO BID [facility] Last Admin: 12/11/19 09:57 Dose: 7.5 mg Documented by: Methimazole (Tapazole -) 5 mg PO DAILY [facility] Last Admin: 12/11/19 09:58 Dose: 5 mg Documented by: Metoprolol Tartrate (Lopressor -) 50 mg PO DAILY [facility] Last Admin: 12/11/19 09:57 Dose: 50 mg Documented by: Sodium Zirconium Cyclosilicate (Lokelma) 5 gm PO DAILY [facility] Last Admin: 12/11/19 09:59 Dose: Not Given Documented by: - Objective Vital Signs: Vital Signs Temperature 98.4 F 12/11/19 10:00 Pulse Rate 60 12/11/19 10:00 Respiratory Rate 20 12/11/19 10:00 Blood Pressure 143/65 12/11/19 10:00 O2 Sat by Pulse Oximetry (%) 95 12/11/19 10:00 Constitutional: Yes: No Distress HENT: Yes: Atraumatic Neck: Yes: Supple Cardiovascular: Yes: Regular Rate and Rhythm Respiratory: Yes: Regular Gastrointestinal: Yes: Soft Extremities: No: Cold, Cool, Cyanosis Edema: No Labs: CBC, BMP 12/11/19 08:00 12/11/19 08:00 INR, PTT INR 1.63 (0.83-1.09) H 12/09/19 15:00 Assessment/Plan 69 year old woman with history of ESRD on HD, Hepatitis C, atrial fibrillation on Eliquis, DM, hypertension who presented from dialysis with non-functioning AVG 1. Clotted AVG 2. ESRD on HD 3. Hypertension 4. CKD related anemia 5. Renal Osteodystrophy 6. Atrial fibrillation on Eliquis 7. DM Awaiting placement of New access today. Doppler shows occlusion of AVF/AVG There is no hyperkalemia or acidosis to warrant emergent dialysis. Will plan for dialysis on Saturday morning. No evidence of volume overload Renal diet, 1.2L daily fluid restriction Continue Lokelma daily. (dose to be given tonight) Eliquis on hold for planned procedure. Thank camila Paz DO
[2019-12-11] MEDS ORDERED: PROPOFOL 20 ML ONE ×2 (16:42)
[2019-12-11] MEDS ORDERED: MIDAZOLAM HCL 2 MG/2 ML SINGLE DOSE VIAL ONE ×2 (16:42→17:16)
[2019-12-11] MEDS ORDERED: ceFAZolin SODIUM 1 GM VIAL IVPB ONE (16:51)
[2019-12-11] MEDS ORDERED: LIDOCAINE HCL 1%, 10 MG/ML (20ML VIAL) NR ONE (17:35)
[2019-12-11] MEDS ORDERED: LIDOCAINE HCL 2% (50ML VIAL) NR ONE ×2 (17:36)
[2019-12-11] MEDS ORDERED: MINERAL OIL 25 ML OIL ONE (17:44)
[2019-12-11] MEDS ORDERED: BACITRACIN 15 GM TUBE TOPICAL OINTMENT TP ONE (18:26)
[2019-12-11] MEDS ORDERED: BACITRACIN 15 GM TUBE TOPICAL OINTMENT ONE (18:28)
--- NOTE | 2019-12-11 18:59 | OP ---
Operative Note - Note: Operative Date: 12/11/19 Pre-Operative Diagnosis: ESRD on HD Operation: Placement HeRO graft left arm. Thrombectomy brachial artery Findings: Innominate vein stent with distal stenosis. Left upper arm AV graft thrombosed, good inflow after thrombectomy. Implants: HeRO catheter with superhero adapter. Accuseal graft 7 mm Post-Operative Diagnosis: Same as Pre-op Surgeon: Jonas Oakes Last Marker: Tj Cedillo Anesthesiologist/METAL GRINDER: Pavel Samaniego Anesthesia: MAC Estimated Blood Loss (mls): 100
[2019-12-11] MEDS ORDERED: ACETAMINOPHEN 325 MG TABLET (FP) PO PRN ×3 (19:27→19:45)
[2019-12-11] MEDS ORDERED: ONDANSETRON 4 MG/2 ML VIAL IVPUSH PRN (19:39)
[2019-12-11] MEDS ORDERED: oxyCODONE HCL 5 MG TABLET PO PRN ×2 (19:45)
--- NOTE | 2019-12-11 20:10 | SURG ---
Surgery Lamp Developer Note Lamp Developer: Tj Cedillo PA-C Date of Service: 12/11/19 Diagnosis: ESRD on HD. Clotted LUE AVG Procedure: Placement HeRO graft left arm. Thrombectomy brachial artery I was present for the entirety of the operative procedure. For further detail, please refer to operative report. Visit type - Case Type Case Type: ED Admission
--- NOTE | 2019-12-11 20:31 | OP ---
DATE OF OPERATION: 12/11/2019 SURGEON: Jonas Esposito MD. SKILLED TRADES TEACHER: BEN Berry. PROCEDURE: Placement of HeRO in the left arm. Thrombectomy at brachial artery. PREOPERATIVE DIAGNOSIS: End-stage renal disease with thrombosed arteriovenous graft. POSTOPERATIVE DIAGNOSIS: End-stage renal disease with thrombosed arteriovenous graft. ANESTHESIA: Fractional. ANESTHESIOLOGIST: Jovani Samaniego MD. OPERATIVE FINDINGS: The left upper arm AV graft was thrombosed. Following thrombectomy, brachial artery end flow was strongly pulsatile. There was a stent in the innominate vein which was narrowed distally. OPERATIVE PROCEDURE: Following routine patient identification with side and site verification, intravenous sedation was established. The left neck, chest, and arm were prepped with ChloraPrep. Timeout was performed. 1% lidocaine was infiltrated on the left chest wall and using x-ray guidance, a needle was advanced into the left subclavian vein distal to the stent. The microwire was advanced through the needle and the 5 Samoan catheter exchanged over the wire. A wire was then advanced through the innominate vein stent with the aid of an angle-tip catheter. A stiff wire was advanced through the right atrium into the inferior vena cava. Incision was then made on the distal aspect of the upper arm over the distal portion of the old AV graft. This was mobilized from the surrounding tissues using cautery for hemostasis. This was encircled with Vesseloops. The skin around the wire exit site on the chest wall was then incised, and a small pocket created. Dilators were passed over the wire into the subclavian vein. The stent was dilated with a 10-mm balloon. A 20 Samoan sheath was then advanced over the wire into the stent. The HeRO catheter was prepped and passed over the wire, the tip positioned in the right atrium. The dilator and the wire were removed, and the catheter was clamped with the plastic clamp provided. Several counter incisions were then made on the left upper chest wall and upper arm, and the catheter passed through short tunnels with care not to twist. A curved metal tunneler was then passed from the distal arm incision to the most distal counter incision, and an Acuseal graft was passed through the tunnel with care not to twist it. The HeRO adaptor was then attached to the end of the graft securely. The HeRO catheter was then cut, and the catheter was threaded over the adaptor. The graft was then pulled so that the adaptor and catheter would sit nicely in the tract. Backbleeding from the graft was good, and the graft was filled with heparin solution, was occluded with a vascular clamp. The old graft was then transected and an end-to-end anastomosis created from the old graft to the new graft. Prior to completion, a number 4 Anne-Marie catheter was passed proximally into the brachial artery and withdrawn with removal of thrombus and hindu of arterial inflow. The suture line was completed and all clamps were removed. There was good flow to the anastomosis. The wounds were irrigated and closed with interrupted sutures of 3-0 Vicryl and skin paradise. Sterile dressings were applied, and the patient was taken to the recovery room in stable condition. JONAS ESPOSITO M.D. [id number]
[2019-12-11] MEDS ORDERED: APIXABAN 5 MG TABLET PO SCH (22:00)
[2019-12-12 09:53] LABS: HEMATOCRIT 31.4 % (32.4-45.2); HEMOGLOBIN 10.1 GM/dL (10.7-15.3); MCH 26.5 pg (25.7-33.7); MCHC 32.2 g/dl (32.0-36.0); MEAN CELL VOLUME 82.3 fl (80-96); MEAN PLT VOLUME 9.1 fl (7.5-11.1); PLATELET COUNT 224 K/MM3 (134-434); RBC 3.81 M/mm3 (3.60-5.2); RDW 19.2 % (11.6-15.6); WHITE BLOOD COUNT 9.9 K/mm3 (4.0-10.0)
[2019-12-12] MEDS ORDERED: SODIUM CHLORIDE 250 ML IV PRN (09:58)
[2019-12-12] MEDS ORDERED: ESCITALOPRAM OXALATE 10 MG TABLET PO SCH (10:00)
[2019-12-12] MEDS ORDERED: SODIUM ZIRCONIUM CYCLOSILICATE (LOKELMA) 5 GM PACKET PO SCH (10:00)
[2019-12-12] MEDS ORDERED: METOPROLOL TARTRATE 50 MG TABLET (FP) PO SCH (10:00)
[2019-12-12] MEDS ORDERED: ATORVASTATIN CA 40 MG TABLET (FP) PO SCH (10:00)
[2019-12-12] MEDS ORDERED: FUROSEMIDE 40 MG TABLET (FP) PO SCH (10:00)
[2019-12-12] MEDS ORDERED: METHIMAZOLE 5 MG TABLET (FP) PO SCH (10:00)
--- NOTE | 2019-12-12 10:06 | DS ---
Physical Examination Vital Signs: Vital Signs Temperature 98.2 F 12/12/19 08:50 Pulse Rate 70 12/12/19 09:20 Respiratory Rate 18 12/12/19 09:20 Blood Pressure 112/63 12/12/19 09:20 O2 Sat by Pulse Oximetry (%) 98 12/12/19 05:56 Findings/Remarks: [id number] VP C[facility]ASC[facility]ALIA - percocet prn d/w pt -1 2 tabs/d max for few days ; falls PFX d/w pt; [place]/dep with prolonged use pt aware tolerated surgery well; had HD today OK - DC home f/u outpt d/w pt Constitutional: Yes: No Distress, Calm Eyes: Yes: Conjunctiva Clear HENT: Yes: Atraumatic Neck: Yes: Supple Cardiovascular: Yes: Regular Rate and Rhythm Respiratory: Yes: CTA Bilaterally Gastrointestinal: Yes: Soft. No: Tenderness Renal/: No: Hematuria Musculoskeletal: No: Joint Stiffness, Joint Swelling Extremities: No: Cold, Cool Edema: No Integumentary: No: Rash, Venous Stasis Changes Neurological: Yes: Alert, Oriented ...Motor Strength: WNL Psychiatric: Yes: Alert, Oriented. No: Agitated, Suicidal Ideation Labs: CBC, BMP 12/12/19 09:00 Discharge Summary Problems reviewed: Yes Reason For Visit: THROMBOSIS OF KIDNEY DIALYSIS ARTERIOVRNOUS GRAFT Current Active Problems Clotted renal dialysis AV graft (Acute) Procedures: Principal: 69 YOF HTN ESRD / HD SVT hyperthyroid admitted with AVF clotted Other Procedures: s/p thrombectomy / vascular sx; HD per renal Hospital Course: improved with above; DC home f/u as advised Condition: Stable - Instructions Diet, Activity, Other Instructions: f.u PCP renal and cardiology in 1-2 weeks; RTER if worse or recurrent. Referrals: Rebecca Villarreal [Primary Care Provider] - Jon Paz MD [Staff Physician] - Garfield Arriaza MD [Staff Physician] - Jonas Oakes MD [Staff Physician] - - Home Medications Comprehensive Discharge Medication List: Ambulatory Orders Diltiazem [Cardizem -] 30 mg PO BID 07/10/16 Escitalopram Oxalate [Lexapro -] 5 mg PO DAILY 07/10/16 Apixaban [Eliquis] 5 mg PO BID 11/18/17 Methimazole [Tapazole] 5 mg PO DAILY 11/18/17 Atorvastatin Ca [Lipitor] 40 mg PO DAILY 03/14/19 Lisinopril 7.5 mg PO BID 03/14/19 Metoprolol Tartrate 50 mg PO DAILY 03/14/19 Albuterol 2.5/Ipratropium 0.5 [Duoneb -] 1 amp NEB RTID amp 03/21/19 Budesonide/Formeterol Fumarate [SYMBICORT 160/4.5mcg -] 2 puff IH BID inhaler 03/21/19 Furosemide [Lasix -] 80 mg PO DAILY tablet 05/06/19 Oxycodone HCl/Acetaminophen [Percocet 5-325 mg Tablet] 1 combo PO Q4H PRN tablet 11/05/19 Acetaminophen [Tylenol .Regular Strength -] 325 mg PO Q4H PRN tablet 11/10/19
[2019-12-12 10:17] LABS: ALBUMIN 2.7 g/dl (3.4-5.0); BILIRUBIN,TOTAL 0.6 mg/dL (0.2-1); BLOOD UREA NITROGEN 64.6 mg/dL (7-18); CALCIUM 8.2 mg/dL (8.5-10.1); MAGNESIUM 2.5 mg/dL (1.8-2.4); PHOSPHOROUS 7.9 mg/dL (2.5-4.9); POTASSIUM 4.7 mmol/L (3.5-5.1); TOT PROT 6.6 g/dl (6.4-8.2)
[2019-12-12 10:38] LABS: CREATININE 10.8 mg/dL (0.55-1.3)
--- NOTE | 2019-12-12 11:03 | PN ---
Progress Note (short form) - Note Progress Note: POD 1 C/o nausea On dialysis with new graft, no problem with access. Discharge plans as per Medicine. I will see in my office in 2 weeks.
[2019-12-12 12:44] VITALS: TEMP 98
[2019-12-12 12:56] VITALS: PULSE 82
--- NOTE | 2019-12-12 13:00 | PN ---
Progress Note (short form) - Note Progress Note: cc: avf clot s: patient seen in dialysis, s/p AV graft surgery yesterday. no chest pain, palps, dizziness, dyspnea Current Medications Generic Name Dose Route Start Last Admin Trade Name Freq PRN Reason Stop Dose Admin Acetaminophen 325 mg 12/11/19 19:27 Tylenol - PO Q4H PRN PAIN LEVEL 7 - 10 Acetaminophen 325 mg 12/11/19 19:45 Tylenol - PO 12/14/19 19:44 Q4H PRN PAIN LEVEL 1-5 Acetaminophen 650 mg 12/11/19 19:45 Tylenol - PO 12/14/19 19:44 Q4H PRN PAIN LEVEL 6-10 Albuterol/Ipratropium 1 amp 12/11/19 19:27 Duoneb - NEB RTID PRN WHEEZING Apixaban 5 mg 12/11/19 22:00 Eliquis - PO BID EMELINA Atorvastatin Calcium 40 mg 12/12/19 10:00 Lipitor - PO DAILY [facility] Budesonide/Formoterol Fumarate 2 puff 12/11/19 22:00 12/11/19 23:37 Symbicort 160/4.5mcg - IH 2 puff BID EMELINA Administration Diltiazem HCl 30 mg 12/11/19 22:00 12/11/19 23:38 Cardizem - PO 30 mg BID EMELINA Administration Escitalopram Oxalate 5 mg 12/12/19 10:00 Lexapro - PO DAILY [facility] Furosemide 80 mg 12/12/19 10:00 Lasix - PO DAILY [facility] Lisinopril 7.5 mg 12/11/19 22:00 12/11/19 23:39 Prinivil PO 7.5 mg BID EMELINA Administration Methimazole 5 mg 12/12/19 10:00 Tapazole - PO DAILY [facility] Metoprolol Tartrate 50 mg 12/12/19 10:00 Lopressor - PO DAILY [facility] Ondansetron HCl 4 mg 12/11/19 19:39 Zofran Injection IVPUSH Q6H PRN NAUSEA AND/OR VOMITING Oxycodone HCl 5 mg 12/11/19 19:45 Roxicodone - PO Q4H PRN PAIN LEVEL 1-5 Oxycodone HCl 10 mg 12/11/19 19:45 Roxicodone - PO Q4H PRN PAIN LEVEL 6-10 Vital Signs Period Temp Pulse Resp BP Sys/Chavarria Pulse Ox Last 24 Hr 97.5 F-98.7 F 59-82 14-18 101-180/55-92 94-100 Constitutional: Yes: Well Nourished, No Distress Eyes: No: Sclera Icterus HENT: No: Nasal Congestion Respiratory: Yes: CTA Bilaterally. No: Accessory Muscle Use, Rales, Wheezes Gastrointestinal: Yes: Normal Bowel Sounds. No: Distention, Hepatomegaly, Palpable Mass, Tenderness Cardiovascular: Yes: Regular Rate and Rhythm JVD: No Carotid Bruit: No PMI: Non-Displaced Heart Sounds: Yes: S1, S2. No: Gallop Murmur: No: Systolic Murmur, Diastolic Murmur Extremities: No: Cool, Cyanosis Edema: No Integumentary: No: Jaundice Neurological: Yes: Alert, Oriented (x3) Psychiatric: No: Agitated ECG: sr, 1st avb,no ischemic changes MPI 07/19 (marjan): no isch STs, pt in afib. mid-AW ischemia, distal IW ischemia. fixed apical defect. EF 30%, no TID Echo 07/19: moderate LVE, mildly decr'd LVEF (45%), GLOBAL. nl RV size, mild RV hypo. mild LAE. mod MR. mild pHTN (RVSP 42). nl LAP. a/p: CAD: -2018 stress test with ischemia in RCA and also LAD distributions. -she has been asymptomatic -cont home med regimen: AC (no ASA), statin, bb chronic syst/diast CHF (mixed), moderate MR, mild pHTN: -pt with known mild to moderate vs moderate decrease in LVEF. ? isch CMP (inferoposterior WMAs worse on prior hosp echo review here), ? nonischemic (uncontrolled DM long time, global appearance of hypokinesis on recent imaging) -has been clinically euvolemic for long time, with volume status stable with HD mgmt -continues to appear euvolemic here, outpt wt trend stable. -no audible MR murmur, echo images not concerning for severe MR previously (serial studies) parox AF: -pt incidentally noted to be in afib during stress test 2018 -no recurrence since -on good AVN louis regimen for PSVT prophylaxis--continue same -on Eliquis PSVT: -frequent episodes of very rapid SVT during prior hospital stays, whenever meds are interrupted -tolerating home metoprolol and diltiazem regimen long time, with good arrhythmia control HTN: -stable overall -cont same meds ESRD on HD: -dialysis per renal pulm fibrosis: -hospitalized here previously with unexplained interstitial lung dz picture, no specific dx made on bronch--treated empirically with steroids with good resolu tion; -per pmd h/o posterior circulation CVA: -on AC, statin hyperthyroidism: -on methimazole preop: -s/p AV graft surgery, tolerated well
[2019-12-12] MEDS: LISINOPRIL 5 MG TABLET PO SCH (13:49)
[2019-12-12] MEDS ORDERED: PT OWN MED DRAWER 7, Y5N ONE (13:52)
[2019-12-12] MEDS: BUDESONIDE/FORMETEROL FUMARATE 160/4.5 mcg INHALER IH SCH (13:54)
--- NOTE | 2019-12-12 14:36 | PN ---
Progress Note, Physician History of Present Illness: Seen and examined at the bedside. awake and alert s/p HeRo graft placement yesterday tolerated dialysis well with new graft this am making urine. no N/V/D. denies any CP, shortness of breath. - Current Medication List Current Medications: Active Medications Acetaminophen (Tylenol -) 325 mg PO Q4H PRN PRN Reason: PAIN LEVEL 7 - 10 Acetaminophen (Tylenol -) 325 mg PO Q4H PRN PRN Reason: PAIN LEVEL 1-5 Stop: 12/14/19 19:44 Acetaminophen (Tylenol -) 650 mg PO Q4H PRN PRN Reason: PAIN LEVEL 6-10 Stop: 12/14/19 19:44 Albuterol/Ipratropium (Duoneb -) 1 amp NEB RTID PRN PRN Reason: WHEEZING Apixaban (Eliquis -) 5 mg PO BID [facility] Last Admin: 12/12/19 13:48 Dose: 5 mg Documented by: Atorvastatin Calcium (Lipitor -) 40 mg PO DAILY [facility] Last Admin: 12/12/19 13:48 Dose: 40 mg Documented by: Budesonide/Formoterol Fumarate (Symbicort 160/4.5mcg -) 2 puff IH BID [facility] Last Admin: 12/12/19 13:54 Dose: 2 puff Documented by: Diltiazem HCl (Cardizem -) 30 mg PO BID [facility] Last Admin: 12/11/19 23:38 Dose: 30 mg Documented by: Escitalopram Oxalate (Lexapro -) 5 mg PO DAILY [facility] Last Admin: 12/12/19 13:48 Dose: 5 mg Documented by: Furosemide (Lasix -) 80 mg PO DAILY [facility] Last Admin: 12/12/19 13:48 Dose: Not Given Documented by: Lisinopril (Prinivil) 7.5 mg PO BID [facility] Last Admin: 12/12/19 13:49 Dose: Not Given Documented by: Methimazole (Tapazole -) 5 mg PO DAILY [facility] Last Admin: 12/12/19 13:53 Dose: 5 mg Documented by: Metoprolol Tartrate (Lopressor -) 50 mg PO DAILY [facility] Last Admin: 12/12/19 13:48 Dose: 50 mg Documented by: Ondansetron HCl (Zofran Injection) 4 mg IVPUSH Q6H PRN PRN Reason: NAUSEA AND/OR VOMITING Oxycodone HCl (Roxicodone -) 5 mg PO Q4H PRN PRN Reason: PAIN LEVEL 1-5 Oxycodone HCl (Roxicodone -) 10 mg PO Q4H PRN PRN Reason: PAIN LEVEL 6-10 - Objective Vital Signs: Vital Signs Temperature 98.0 F 12/12/19 12:55 Pulse Rate 82 12/12/19 12:55 Respiratory Rate 18 12/12/19 12:55 Blood Pressure 101/57 L 12/12/19 12:55 O2 Sat by Pulse Oximetry (%) 97 12/12/19 12:55 Constitutional: Yes: No Distress HENT: Yes: Atraumatic Neck: Yes: Supple Cardiovascular: Yes: Regular Rate and Rhythm Respiratory: Yes: Regular Gastrointestinal: Yes: Soft Extremities: No: Cyanosis Edema: No Labs: CBC, BMP 12/12/19 09:00 12/12/19 09:00 INR, PTT INR 1.63 (0.83-1.09) H 12/09/19 15:00 Assessment/Plan 69 year old woman with history of ESRD on HD, Hepatitis C, atri al fibrillation on Eliquis, DM, hypertension who presented from dialysis with non-functioning AVG 1. Clotted AVG now s/p placement of HeRO graft 2. ESRD on HD 3. Hypertension 4. CKD related anemia 5. Renal Osteodystrophy 6. Atrial fibrillation on Eliquis 7. DM New HeRO graft functioned well today. Tolerated dialysis w/o complication No evidence of volume overload Renal diet, 1.2L daily fluid restriction Pt does not require Lokelma as an outpatient Anticipate discharge today, will resume dialysis on Saturday. Thank camila Paz DO
[2019-12-12 15:07] VITALS: BP 110/60
[2019-12-12] MEDS: dilTIAZem HCL 30 MG TABLET PO SCH (15:21)
== END 2019-12-12 17:00 | disposition home or self-care (01) | DRG 252 ==
LOC: JER 10:59 → JERBED 17:11 → J5S 12-10 12:46
PROVIDERS: ADMIT Internal Medicine; ATTEND Internal Medicine
PROC: 03180JV Bypass Left Brachial Artery to Superior Vena Cava with Synthetic Substitute, Open Approach (ICD-10-PCS; 2019-12-11)
PROC: 03C83ZZ Extirpation of Matter from Left Brachial Artery, Percutaneous Approach (ICD-10-PCS; principal; 2019-12-11 16:00)
PROC: 5A1D70Z Performance of Urinary Filtration, Intermittent, Less than 6 Hours Per Day (ICD-10-PCS; 2019-12-12)
DX: T82.868A Thrombosis due to vascular prosthetic devices, implants and grafts, initial encounter (principal); N18.6 End stage renal disease; I13.2 Hypertensive heart and chronic kidney disease with heart failure and with stage 5 chronic kidney disease, or end stage renal disease; I50.30 Unspecified diastolic (congestive) heart failure; I47.1 Supraventricular tachycardia; I69.354 Hemiplegia and hemiparesis following cerebral infarction affecting left non-dominant side; D63.1 Anemia in chronic kidney disease; E11.22 Type 2 diabetes mellitus with diabetic chronic kidney disease; Z99.2 Dependence on renal dialysis; N25.0 Renal osteodystrophy; I48.0 Paroxysmal atrial fibrillation; E05.90 Thyrotoxicosis, unspecified without thyrotoxic crisis or storm; K21.9 Gastro-esophageal reflux disease without esophagitis; J84.10 Pulmonary fibrosis, unspecified; I25.10 Atherosclerotic heart disease of native coronary artery without angina pectoris; Y83.9 Surgical procedure, unspecified as the cause of abnormal reaction of the patient, or of later complication, without mention of misadventure at the time of the procedure
CPT/HCPCS: 36415; 71045-TC-FY; 80048; 80053; 82962; 83735; 84100; 84132; 85025; 85027; 85610; 85730; 86803; 86850; 86870; 86900; 86901; 86902; 87340; 93005; 93010; 93971; 94760; 99285-25; C9803; J1644; U0003

== ENCOUNTER 2020-02-20 08:50 | Inpatient (IN) | payer OTHER ==
[2020-02-20 10:12] VITALS: BMI 35.5
[2020-02-20 10:43] LABS: BASO % 0.2 % (0-2.0); EOS % 10.5 % (0-4.5); MCH 26.6 pg (25.7-33.7); MCHC 32.3 g/dl (32.0-36.0); MEAN CELL VOLUME 82.3 fl (80-96); MONO % 10.9 % (3.8-10.2); NEUT % 61.4 % (42.8-82.8); PLATELET COUNT 177 K/MM3 (134-434); RBC 4.13 M/mm3 (3.60-5.2); RDW 19.2 % (11.6-15.6); WHITE BLOOD COUNT 9.5 K/mm3 (4.0-10.0)
[2020-02-20 10:50] LABS: INR 1.8 (0.83-1.09); PROTHROMBIN TIME (PATIENT) 21.8 SEC (9.7-13.0)
[2020-02-20 11:13] LABS: BLOOD UREA NITROGEN 46.1 mg/dL (7-18); CALCIUM 8.9 mg/dL (8.5-10.1)
[2020-02-20 11:18] LABS: BILIRUBIN,TOTAL 0.5 mg/dL (0.2-1); TOT PROT 7.4 g/dl (6.4-8.2)
[2020-02-20 11:27] LABS: CREATININE 10.1 mg/dL (0.55-1.3)
[2020-02-20] MEDS ORDERED: ALBUTEROL SO4 HFA INHALER IH PRN (20:48)
[2020-02-20] MEDS ORDERED: LISINOPRIL 5 MG TABLET PO SCH (22:00)
[2020-02-20] MEDS ORDERED: dilTIAZem HCL 30 MG TABLET PO SCH (22:00)
[2020-02-20] MEDS ORDERED: ATORVASTATIN CA 40 MG TABLET (FP) PO SCH (22:00)
[2020-02-20] MEDS ORDERED: APIXABAN 5 MG TABLET PO SCH (22:00)
[2020-02-21] MEDS ORDERED: PATIENT'S OWN MEDICATION (NON-FORMULARY) (Metoprolol Tartrate [Metoprolol Tartrate] 100 MG PO SCH (10:00)
[2020-02-21] MEDS ORDERED: ESCITALOPRAM OXALATE 10 MG TABLET PO SCH (10:00)
[2020-02-21] MEDS ORDERED: METHIMAZOLE 5 MG TABLET PO SCH (10:00)
[2020-02-21] MEDS ORDERED: LIDOCAINE HCL 1%, 10 MG/ML (20ML VIAL) ONE ×2 (12:48)
[2020-02-21] MEDS ORDERED: HEPARIN NA (PORCINE) 5,000 UNITS/ML 1ML VIAL ONE ×3 (12:49→14:43)
[2020-02-21] MEDS ORDERED: PROPOFOL 20 ML ONE (13:21)
[2020-02-21] MEDS ORDERED: MIDAZOLAM HCL 2 MG/2 ML SINGLE DOSE VIAL ONE (13:21)
[2020-02-21] MEDS ORDERED: SODIUM CHLORIDE 0.9% P/F 10 ML VIAL IJ ONE (13:36)
[2020-02-21] MEDS ORDERED: ceFAZolin SODIUM 1 GM VIAL ONE (13:36)
[2020-02-21] MEDS ORDERED: LIDOCAINE HCL 1%, 10 MG/ML (20ML VIAL) INF ONE (13:50)
[2020-02-21] MEDS ORDERED: ceFAZolin SODIUM 1 GM VIAL IVPB ONE (13:59)
[2020-02-21] MEDS ORDERED: HEPARIN NA (PORCINE) 5,000 UNITS/ML 1ML VIAL SQ ONE (14:20)
[2020-02-21] MEDS ORDERED: ONDANSETRON 4 MG/2 ML VIAL IVPUSH PRN (15:28)
[2020-02-21] MEDS ORDERED: ALBUTEROL SO4 HFA INHALER IH PRN (15:39)
[2020-02-21] MEDS ORDERED: oxyCODONE HCL 5 MG TABLET PO PRN (15:39)
[2020-02-21] MEDS ORDERED: SODIUM CHLORIDE 250 ML IV PRN (16:31)
[2020-02-21] MEDS ORDERED: ATORVASTATIN CA 40 MG TABLET (FP) PO SCH (22:00)
[2020-02-21] MEDS: dilTIAZem HCL 30 MG TABLET PO SCH (22:17)
[2020-02-21] MEDS: LISINOPRIL 5 MG TABLET PO SCH (22:17)
[2020-02-21] MEDS: APIXABAN 5 MG TABLET PO SCH (22:18)
[2020-02-22] MEDS ORDERED: METOPROLOL TARTRATE 150 MG PO SCH (10:00)
[2020-02-22] MEDS ORDERED: ESCITALOPRAM OXALATE 10 MG TABLET PO SCH (10:00)
[2020-02-22] MEDS ORDERED: METHIMAZOLE 5 MG TABLET PO SCH (10:00)
[2020-02-22] MEDS: dilTIAZem HCL 30 MG TABLET PO SCH (13:00)
[2020-02-22] MEDS: LISINOPRIL 5 MG TABLET PO SCH (13:01)
[2020-02-22] MEDS: APIXABAN 5 MG TABLET PO SCH (13:01)
[2020-02-22 14:42] VITALS: BP 140/99; PULSE 80; TEMP 97.2
== END 2020-02-22 18:36 | disposition home health service (06) | DRG 252 ==
LOC: JER 08:50 → JERBED 09:39 → J6S 21:38
PROVIDERS: ADMIT Internal Medicine; ATTEND Internal Medicine
PROC: 03C83ZZ Extirpation of Matter from Left Brachial Artery, Percutaneous Approach (ICD-10-PCS; principal; 2020-02-21)
PROC: 03WY37Z Revision of Autologous Tissue Substitute in Upper Artery, Percutaneous Approach (ICD-10-PCS; 2020-02-21)
PROC: 5A1D70Z Performance of Urinary Filtration, Intermittent, Less than 6 Hours Per Day (ICD-10-PCS; 2020-02-22)
DX: T82.868A Thrombosis due to vascular prosthetic devices, implants and grafts, initial encounter (principal); N18.6 End stage renal disease; I12.0 Hypertensive chronic kidney disease with stage 5 chronic kidney disease or end stage renal disease; I69.354 Hemiplegia and hemiparesis following cerebral infarction affecting left non-dominant side; I48.0 Paroxysmal atrial fibrillation; Z99.2 Dependence on renal dialysis; K21.9 Gastro-esophageal reflux disease without esophagitis; Y83.9 Surgical procedure, unspecified as the cause of abnormal reaction of the patient, or of later complication, without mention of misadventure at the time of the procedure
CPT/HCPCS: 36415; 71045-TC-FY; 76000-TC-FY; 80053; 84484; 85025; 85610; 85730; 86803; 87340; 93005; 93010; 93971; 94760; 99285-25; C9803; J1644; U0003

== ENCOUNTER 2020-03-28 15:38 | Inpatient (IN) | payer OTHER ==
[2020-03-28 16:16] VITALS: BMI 35.5
[2020-03-28 18:18] LABS: BASO % 0.9 % (0-2.0); EOS % 0.4 % (0-4.5); HEMATOCRIT 36.5 % (32.4-45.2); HEMOGLOBIN 11.9 GM/dL (10.7-15.3); LYMPH % 33.7 % (8-40); MCH 27.2 pg (25.7-33.7); MCHC 32.6 g/dl (32.0-36.0); MEAN CELL VOLUME 83.3 fl (80-96); MEAN PLT VOLUME 10.2 fl (7.5-11.1); MONO % 17.8 % (3.8-10.2); NEUT % 47.2 % (42.8-82.8); PLATELET COUNT 101 K/MM3 (134-434); RBC 4.38 M/mm3 (3.60-5.2); RDW 18.3 % (11.6-15.6); WHITE BLOOD COUNT 4.9 K/mm3 (4.0-10.0)
[2020-03-28 18:39] LABS: POTASSIUM 4.2 mmol/L (3.5-5.1)
[2020-03-28 18:42] LABS: ALBUMIN 3.2 g/dl (3.4-5.0); CALCIUM 8.5 mg/dL (8.5-10.1)
[2020-03-28 18:43] LABS: BLOOD UREA NITROGEN 58.6 mg/dL (7-18); MAGNESIUM 2.6 mg/dL (1.8-2.4)
[2020-03-28 18:45] LABS: PHOSPHOROUS 3.6 mg/dL (2.5-4.9)
[2020-03-28 18:47] LABS: BILIRUBIN,TOTAL 0.4 mg/dL (0.2-1); TOT PROT 7.7 g/dl (6.4-8.2)
[2020-03-28] MEDS ORDERED: ASPIRIN 81 MG CHEWABLE TABLETS PO ONE (19:16)
[2020-03-28 19:34] LABS: CREATININE 10.2 mg/dL (0.55-1.3)
[2020-03-28] MEDS ORDERED: ASPIRIN 81 MG CHEWABLE TABLETS ONE (19:41)
[2020-03-28] MEDS ORDERED: oxyCODONE HCL 5 MG TABLET PO PRN (21:13)
[2020-03-28] MEDS ORDERED: APIXABAN 5 MG TABLET ONE (21:56)
[2020-03-28] MEDS ORDERED: ATORVASTATIN CA 40 MG TABLET (FP) ONE (21:56)
[2020-03-28] MEDS ORDERED: dilTIAZem HCL 30 MG TABLET ONE (21:56)
[2020-03-28] MEDS ORDERED: LISINOPRIL 5 MG TABLET ONE (21:56)
[2020-03-28] MEDS: dilTIAZem HCL 30 MG TABLET PO SCH (22:12)
[2020-03-28] MEDS: APIXABAN 5 MG TABLET PO SCH (22:12)
[2020-03-28] MEDS: ALBUTEROL SO4 HFA INHALER IH SCH (22:12)
[2020-03-28] MEDS: ATORVASTATIN CA 40 MG TABLET (FP) PO SCH (22:12)
[2020-03-28] MEDS: LISINOPRIL 5 MG TABLET PO SCH (22:12)
[2020-03-29] MEDS ORDERED: ACETAMINOPHEN 1000 MG/100 ML VIAL (NON FORMULARY) IVPB ONE (09:04)
[2020-03-29] MEDS ORDERED: ACETAMINOPHEN 500 MG TABLET (FP) PO ONE (09:13)
[2020-03-29] MEDS ORDERED: ACETAMINOPHEN 325 MG TABLET (FP) PO PRN (09:13)
[2020-03-29] MEDS ORDERED: ACETAMINOPHEN 500 MG TABLET (FP) ONE (09:16)
[2020-03-29 09:59] LABS: BASO % 0.5 % (0-2.0); EOS % 0.5 % (0-4.5); HEMOGLOBIN 12.7 GM/dL (10.7-15.3); LYMPH % 29.8 % (8-40); MCH 27.4 pg (25.7-33.7); MCHC 33.4 g/dl (32.0-36.0); MEAN CELL VOLUME 82.2 fl (80-96); MEAN PLT VOLUME 10.2 fl (7.5-11.1); MONO % 12.6 % (3.8-10.2); NEUT % 56.6 % (42.8-82.8); PLATELET COUNT 125 K/MM3 (134-434); RBC 4.63 M/mm3 (3.60-5.2); RDW 18.2 % (11.6-15.6); WHITE BLOOD COUNT 4.8 K/mm3 (4.0-10.0)
[2020-03-29 10:26] LABS: ALBUMIN 3.4 g/dl (3.4-5.0); BLOOD UREA NITROGEN 65.1 mg/dL (7-18); CALCIUM 8.9 mg/dL (8.5-10.1)
[2020-03-29 10:30] LABS: BILIRUBIN,TOTAL 0.6 mg/dL (0.2-1)
[2020-03-29 10:31] LABS: TOT PROT 8.3 g/dl (6.4-8.2)
[2020-03-29] MEDS ORDERED: ALBUTEROL SO4 HFA INHALER IH ONE (10:49)
[2020-03-29] MEDS ORDERED: dilTIAZem HCL 30 MG TABLET ONE (10:50)
[2020-03-29] MEDS ORDERED: ESCITALOPRAM OXALATE 10 MG TABLET ONE (10:50)
[2020-03-29] MEDS ORDERED: APIXABAN 5 MG TABLET ONE (10:50)
[2020-03-29] MEDS: dilTIAZem HCL 30 MG TABLET PO SCH ×2 (11:00→21:00)
[2020-03-29] MEDS: APIXABAN 5 MG TABLET PO SCH ×2 (11:00→21:00)
[2020-03-29] MEDS: ESCITALOPRAM OXALATE 10 MG TABLET PO SCH (11:00)
[2020-03-29] MEDS: METHIMAZOLE 5 MG TABLET (FP) PO SCH (11:00)
[2020-03-29] MEDS: ALBUTEROL SO4 HFA INHALER IH SCH ×2 (11:00→21:02)
[2020-03-29] MEDS: LISINOPRIL 5 MG TABLET PO SCH ×2 (11:18→21:01)
[2020-03-29] MEDS ORDERED: SODIUM CHLORIDE 250 ML IV PRN (12:46)
[2020-03-29] MEDS ORDERED: VANCOMYCIN 1 GRAM (PRE-DOCKED) 1,000 MG/250 ML BAG IVPB ONE (14:00)
[2020-03-29] MEDS ORDERED: PIPERACILLIN/TAZOBACTAM 2.25 GM VIAL IVPB ONE (15:06)
[2020-03-29] MEDS ORDERED: DEXTROSE 5%-WATER - 50 ML IVPB ONE (15:06)
[2020-03-29] MEDS: PIPERACILLIN/TAZOB 2.25 GM 2.25 GM in DEXTROSE 5%-WATER - 50 ML IVPB SCH ×2 (16:23→17:40)
[2020-03-29] MEDS: ATORVASTATIN CA 40 MG TABLET (FP) PO SCH (21:00)
[2020-03-29] MEDS: METOPROLOL TARTRATE 25 MG TABLET (FP) PO SCH (21:00)
[2020-03-30] MEDS: PIPERACILLIN/TAZOB 2.25 GM 2.25 GM in DEXTROSE 5%-WATER - 50 ML IVPB SCH ×3 (01:06→17:15)
[2020-03-30 07:24] LABS: BASO % 0.9 % (0-2.0); EOS % 0.4 % (0-4.5); HEMATOCRIT 30.6 % (32.4-45.2); HEMOGLOBIN 10.2 GM/dL (10.7-15.3); LYMPH % 28.3 % (8-40); MCH 27.3 pg (25.7-33.7); MCHC 33.3 g/dl (32.0-36.0); MEAN CELL VOLUME 81.8 fl (80-96); MEAN PLT VOLUME 9.7 fl (7.5-11.1); NEUT % 56.4 % (42.8-82.8); PLATELET COUNT 96 K/MM3 (134-434); RBC 3.74 M/mm3 (3.60-5.2); RDW 18.4 % (11.6-15.6); WHITE BLOOD COUNT 3.6 K/mm3 (4.0-10.0)
[2020-03-30 08:47] LABS: CHLORIDE 103 mmol/L (98-107); POTASSIUM 3.6 mmol/L (3.5-5.1); SODIUM 141 mmol/L (136-145)
[2020-03-30 08:52] LABS: ALBUMIN 2.8 g/dl (3.4-5.0); BLOOD UREA NITROGEN 51.5 mg/dL (7-18); CALCIUM 7.9 mg/dL (8.5-10.1)
[2020-03-30 08:53] LABS: CO2 28 mmol/L (21-32); GLUCOSE,RANDOM 77 mg/dL (74-106)
[2020-03-30 08:56] LABS: SGOT/AST 22 U/L (15-37); SGPT/ALT 12 U/L (13-61)
[2020-03-30 08:57] LABS: BILIRUBIN,TOTAL 0.5 mg/dL (0.2-1); TOT PROT 6.8 g/dl (6.4-8.2)
[2020-03-30 09:09] LABS: LDH 255 U/L (84-246)
[2020-03-30 09:10] LABS: ALK PHOS 78 U/L (45-117)
[2020-03-30 09:12] LABS: ANION GAP 10 MMOL/L (8-16)
[2020-03-30 09:14] LABS: CREATININE 8.9 mg/dL (0.55-1.3)
[2020-03-30] MEDS ORDERED: DEXTROSE 5%-WATER - 50 ML IVPB ONE ×2 (09:20→16:54)
[2020-03-30] MEDS ORDERED: PIPERACILLIN/TAZOBACTAM 2.25 GM VIAL IVPB ONE ×2 (09:20→16:54)
[2020-03-30] MEDS: LISINOPRIL 5 MG TABLET PO SCH ×2 (10:30→21:35)
[2020-03-30] MEDS: dilTIAZem HCL 30 MG TABLET PO SCH ×2 (10:30→21:33)
[2020-03-30] MEDS: ALBUTEROL SO4 HFA INHALER IH SCH ×2 (10:31→21:35)
[2020-03-30] MEDS: METHIMAZOLE 5 MG TABLET (FP) PO SCH (10:31)
[2020-03-30] MEDS: ESCITALOPRAM OXALATE 10 MG TABLET PO SCH (10:33)
[2020-03-30] MEDS: APIXABAN 5 MG TABLET PO SCH ×2 (10:33→21:34)
[2020-03-30] MEDS: METOPROLOL TARTRATE 25 MG TABLET (FP) PO SCH ×2 (10:33→21:34)
[2020-03-30] MEDS ORDERED: SODIUM CHLORIDE 250 ML IV PRN (13:29)
[2020-03-30] MEDS: ATORVASTATIN CA 40 MG TABLET (FP) PO SCH (21:34)
[2020-03-30] MEDS ORDERED: DEXAMETHASONE SOD PHOSPHATE 4 MG/1 ML VIAL IVPUSH ONE (23:20)
[2020-03-30] MEDS ORDERED: METOPROLOL TARTRATE 25 MG TABLET (FP) PO ONE (23:45)
[2020-03-31] MEDS: METOPROLOL TARTRATE 25 MG TABLET (FP) PO SCH ×4 (00:02→22:30)
[2020-03-31] MEDS ORDERED: DEXTROSE 5%-WATER - 50 ML IVPB ONE ×3 (00:55→16:36)
[2020-03-31] MEDS ORDERED: PIPERACILLIN/TAZOBACTAM 2.25 GM VIAL IVPB ONE ×3 (00:55→16:36)
[2020-03-31] MEDS: PIPERACILLIN/TAZOB 2.25 GM 2.25 GM in DEXTROSE 5%-WATER - 50 ML IVPB SCH ×3 (03:10→17:33)
[2020-03-31 09:33] LABS: BASO % 0.8 % (0-2.0); EOS % 0.1 % (0-4.5); HEMATOCRIT 32.2 % (32.4-45.2); HEMOGLOBIN 10.6 GM/dL (10.7-15.3); LYMPH % 22.9 % (8-40); MCH 27.3 pg (25.7-33.7); MEAN CELL VOLUME 82.6 fl (80-96); MEAN PLT VOLUME 10.8 fl (7.5-11.1); MONO % 6.5 % (3.8-10.2); NEUT % 69.7 % (42.8-82.8); PLATELET COUNT 108 K/MM3 (134-434); WHITE BLOOD COUNT 2.7 K/mm3 (4.0-10.0)
[2020-03-31 10:23] LABS: ALBUMIN 2.8 g/dl (3.4-5.0); BLOOD UREA NITROGEN 65.8 mg/dL (7-18); CALCIUM 8.1 mg/dL (8.5-10.1)
[2020-03-31 10:27] LABS: TOT PROT 7.1 g/dl (6.4-8.2)
[2020-03-31 10:32] LABS: BILIRUBIN,TOTAL 0.8 mg/dL (0.2-1)
[2020-03-31 10:51] LABS: CREATININE 10.9 mg/dL (0.55-1.3)
[2020-03-31] MEDS: ESCITALOPRAM OXALATE 10 MG TABLET PO SCH (11:36)
[2020-03-31] MEDS: DEXAMETHASONE SOD PHOSPHATE 4 MG/1 ML VIAL IVPUSH SCH (11:37)
[2020-03-31] MEDS ORDERED: PT OWN MED DRAWER 7, Y5N ONE (11:39)
[2020-03-31] MEDS: dilTIAZem HCL 30 MG TABLET PO SCH ×3 (11:39→22:30)
[2020-03-31] MEDS: ALBUTEROL SO4 HFA INHALER IH SCH ×2 (11:40→22:36)
[2020-03-31] MEDS: METHIMAZOLE 5 MG TABLET (FP) PO SCH (11:40)
[2020-03-31] MEDS: LISINOPRIL 5 MG TABLET PO SCH ×3 (11:40→22:30)
[2020-03-31] MEDS: APIXABAN 5 MG TABLET PO SCH ×2 (14:28→23:50)
[2020-03-31] MEDS: ATORVASTATIN CA 40 MG TABLET (FP) PO SCH (22:30)
[2020-04-01] MEDS ORDERED: PIPERACILLIN/TAZOBACTAM 2.25 GM VIAL IVPB ONE ×3 (02:49→17:29)
[2020-04-01] MEDS: PIPERACILLIN/TAZOB 2.25 GM 2.25 GM in DEXTROSE 5%-WATER - 50 ML IVPB SCH ×3 (03:00→18:01)
[2020-04-01 08:42] LABS: CALCIUM 8.2 mg/dL (8.5-10.1)
[2020-04-01] MEDS: METOPROLOL TARTRATE 25 MG TABLET (FP) PO SCH ×2 (09:06→22:52)
[2020-04-01] MEDS: LISINOPRIL 5 MG TABLET PO SCH ×2 (09:06→22:52)
[2020-04-01] MEDS: dilTIAZem HCL 30 MG TABLET PO SCH ×2 (09:06→22:52)
[2020-04-01] MEDS ORDERED: DEXTROSE 5%-WATER - 50 ML IVPB ONE ×2 (09:39→17:29)
[2020-04-01] MEDS: ESCITALOPRAM OXALATE 10 MG TABLET PO SCH (10:08)
[2020-04-01] MEDS: APIXABAN 5 MG TABLET PO SCH ×3 (10:08→22:35)
[2020-04-01] MEDS: DEXAMETHASONE SOD PHOSPHATE 4 MG/1 ML VIAL IVPUSH SCH (10:09)
[2020-04-01] MEDS: ALBUTEROL SO4 HFA INHALER IH SCH ×2 (10:09→22:35)
[2020-04-01] MEDS ORDERED: SODIUM CHLORIDE 250 ML IV PRN (10:36)
[2020-04-01 11:08] LABS: HEP B CORE AB, TOT Negative (Negative)
[2020-04-01 11:17] LABS: INR 1.51 (0.83-1.09); PROTHROMBIN TIME (PATIENT) 18.1 SEC (9.7-13.0)
[2020-04-01] MEDS: METHIMAZOLE 5 MG TABLET (FP) PO SCH (12:00)
[2020-04-01 14:09] LABS: POTASSIUM 3.9 mmol/L (3.5-5.1)
[2020-04-01 14:12] LABS: CALCIUM 8.3 mg/dL (8.5-10.1)
[2020-04-01 14:13] LABS: BLOOD UREA NITROGEN 87.4 mg/dL (7-18)
[2020-04-01 14:33] LABS: CREATININE 12.2 mg/dL (0.55-1.3)
[2020-04-01] MEDS: ATORVASTATIN CA 40 MG TABLET (FP) PO SCH (22:35)
[2020-04-02] MEDS ORDERED: PIPERACILLIN/TAZOBACTAM 2.25 GM VIAL IVPB ONE ×3 (01:26→18:51)
[2020-04-02] MEDS ORDERED: DEXTROSE 5%-WATER - 50 ML IVPB ONE ×3 (01:26→18:52)
[2020-04-02] MEDS: PIPERACILLIN/TAZOB 2.25 GM 2.25 GM in DEXTROSE 5%-WATER - 50 ML IVPB SCH ×3 (03:00→19:16)
[2020-04-02 07:33] LABS: POTASSIUM 3.6 mmol/L (3.5-5.1)
[2020-04-02 07:37] LABS: CALCIUM 7.9 mg/dL (8.5-10.1)
[2020-04-02 07:44] LABS: BLOOD UREA NITROGEN 59.6 mg/dL (7-18)
[2020-04-02 07:58] LABS: CREATININE 8.6 mg/dL (0.55-1.3)
[2020-04-02] MEDS ORDERED: PT OWN MED DRAWER 7, Y5N ONE (09:51)
[2020-04-02] MEDS: APIXABAN 5 MG TABLET PO SCH ×2 (10:58→22:43)
[2020-04-02] MEDS: DEXAMETHASONE SOD PHOSPHATE 4 MG/1 ML VIAL IVPUSH SCH (10:58)
[2020-04-02] MEDS: ESCITALOPRAM OXALATE 10 MG TABLET PO SCH (10:58)
[2020-04-02] MEDS: METHIMAZOLE 5 MG TABLET (FP) PO SCH (10:59)
[2020-04-02] MEDS: METOPROLOL TARTRATE 25 MG TABLET (FP) PO SCH ×2 (10:59→22:43)
[2020-04-02] MEDS: ALBUTEROL SO4 HFA INHALER IH SCH ×2 (10:59→22:55)
[2020-04-02] MEDS: dilTIAZem HCL 30 MG TABLET PO SCH ×2 (10:59→22:44)
[2020-04-02] MEDS: LISINOPRIL 5 MG TABLET PO SCH (11:00)
[2020-04-02] MEDS: ATORVASTATIN CA 40 MG TABLET (FP) PO SCH (22:43)
[2020-04-03] MEDS ORDERED: PIPERACILLIN/TAZOBACTAM 2.25 GM VIAL IVPB ONE ×3 (01:31→18:20)
[2020-04-03] MEDS ORDERED: DEXTROSE 5%-WATER - 50 ML IVPB ONE ×3 (01:32→18:20)
[2020-04-03] MEDS: PIPERACILLIN/TAZOB 2.25 GM 2.25 GM in DEXTROSE 5%-WATER - 50 ML IVPB SCH ×3 (01:45→18:56)
[2020-04-03 07:31] LABS: BASO % 0.2 % (0-2.0); HEMATOCRIT 29.7 % (32.4-45.2); HEMOGLOBIN 9.9 GM/dL (10.7-15.3); LYMPH % 8.4 % (8-40); MCH 27.2 pg (25.7-33.7); MCHC 33.4 g/dl (32.0-36.0); MEAN CELL VOLUME 81.5 fl (80-96); MEAN PLT VOLUME 10.3 fl (7.5-11.1); MONO % 13.3 % (3.8-10.2); NEUT % 78.1 % (42.8-82.8); PLATELET COUNT 134 K/MM3 (134-434); RBC 3.65 M/mm3 (3.60-5.2); WHITE BLOOD COUNT 6.5 K/mm3 (4.0-10.0)
[2020-04-03 07:48] LABS: CALCIUM 8.2 mg/dL (8.5-10.1)
[2020-04-03 07:49] LABS: BLOOD UREA NITROGEN 76.5 mg/dL (7-18)
[2020-04-03 07:56] LABS: CREATININE 10.4 mg/dL (0.55-1.3)
[2020-04-03] MEDS: dilTIAZem HCL 30 MG TABLET PO SCH ×2 (10:12→21:22)
[2020-04-03] MEDS: APIXABAN 5 MG TABLET PO SCH ×2 (10:12→21:21)
[2020-04-03] MEDS: DEXAMETHASONE SOD PHOSPHATE 4 MG/1 ML VIAL IVPUSH SCH (10:12)
[2020-04-03] MEDS: METOPROLOL TARTRATE 25 MG TABLET (FP) PO SCH ×2 (10:12→21:22)
[2020-04-03] MEDS: ESCITALOPRAM OXALATE 10 MG TABLET PO SCH (10:12)
[2020-04-03] MEDS ORDERED: SODIUM CHLORIDE 250 ML IV PRN ×2 (12:03→12:04)
[2020-04-03] MEDS ORDERED: PT OWN MED DRAWER 7, Y5N ONE (12:26)
[2020-04-03] MEDS: METHIMAZOLE 5 MG TABLET (FP) PO SCH (14:40)
[2020-04-03] MEDS: ALBUTEROL SO4 HFA INHALER IH SCH ×2 (14:41→21:25)
[2020-04-03] MEDS: ATORVASTATIN CA 40 MG TABLET (FP) PO SCH (21:21)
[2020-04-04] MEDS ORDERED: PIPERACILLIN/TAZOBACTAM 2.25 GM VIAL IVPB ONE ×2 (01:08→09:31)
[2020-04-04] MEDS ORDERED: DEXTROSE 5%-WATER - 50 ML IVPB ONE ×2 (01:08→09:31)
[2020-04-04] MEDS: PIPERACILLIN/TAZOB 2.25 GM 2.25 GM in DEXTROSE 5%-WATER - 50 ML IVPB SCH (01:44)
[2020-04-04] MEDS ORDERED: EPOETIN ALFA-EPBX 4,000 UNIT/ML VIAL IVPUSH ONE (09:30)
[2020-04-04] MEDS ORDERED: PT OWN MED DRAWER 7, Y5N ONE (09:30)
[2020-04-04] MEDS: ALBUTEROL SO4 HFA INHALER IH SCH ×2 (10:00→22:02)
[2020-04-04] MEDS: METOPROLOL TARTRATE 25 MG TABLET (FP) PO SCH ×2 (10:00→22:02)
[2020-04-04] MEDS: dilTIAZem HCL 30 MG TABLET PO SCH ×2 (10:00→22:02)
[2020-04-04 11:08] LABS: HEMATOCRIT 29.7 % (32.4-45.2); HEMOGLOBIN 9.9 GM/dL (10.7-15.3); MCH 27.1 pg (25.7-33.7); MCHC 33.2 g/dl (32.0-36.0); MEAN CELL VOLUME 81.6 fl (80-96); PLATELET COUNT 154 K/MM3 (134-434); RBC 3.64 M/mm3 (3.60-5.2); RDW 17.3 % (11.6-15.6); WHITE BLOOD COUNT 9.5 K/mm3 (4.0-10.0)
[2020-04-04 11:26] LABS: CHLORIDE 96 mmol/L (98-107); POTASSIUM 3.6 mmol/L (3.5-5.1); SODIUM 137 mmol/L (136-145)
[2020-04-04 11:27] LABS: CALCIUM 8.5 mg/dL (8.5-10.1)
[2020-04-04 11:28] LABS: ANION GAP 16 MMOL/L (8-16); CO2 25 mmol/L (21-32); GLUCOSE,RANDOM 179 mg/dL (74-106)
[2020-04-04 11:31] LABS: PHOSPHOROUS 7.5 mg/dL (2.5-4.9)
[2020-04-04 11:36] LABS: BLOOD UREA NITROGEN 102.8 mg/dL (7-18)
[2020-04-04 11:42] LABS: CREATININE 12.1 mg/dL (0.55-1.3)
[2020-04-04] MEDS: APIXABAN 5 MG TABLET PO SCH ×2 (14:03→22:02)
[2020-04-04] MEDS: DEXAMETHASONE SOD PHOSPHATE 4 MG/1 ML VIAL IVPUSH SCH (14:03)
[2020-04-04] MEDS: ESCITALOPRAM OXALATE 10 MG TABLET PO SCH (14:03)
[2020-04-04] MEDS: METHIMAZOLE 5 MG TABLET (FP) PO SCH (14:04)
[2020-04-04] MEDS: ATORVASTATIN CA 40 MG TABLET (FP) PO SCH (22:02)
[2020-04-05] MEDS: METOPROLOL TARTRATE 25 MG TABLET (FP) PO SCH ×2 (09:43→21:11)
[2020-04-05] MEDS: DEXAMETHASONE SOD PHOSPHATE 4 MG/1 ML VIAL IVPUSH SCH (09:43)
[2020-04-05] MEDS: APIXABAN 5 MG TABLET PO SCH ×2 (09:44→21:11)
[2020-04-05] MEDS: ESCITALOPRAM OXALATE 10 MG TABLET PO SCH (09:44)
[2020-04-05] MEDS: ALBUTEROL SO4 HFA INHALER IH SCH ×2 (09:44→22:00)
[2020-04-05] MEDS: dilTIAZem HCL 30 MG TABLET PO SCH ×2 (09:44→21:11)
[2020-04-05] MEDS: METHIMAZOLE 5 MG TABLET (FP) PO SCH (09:44)
[2020-04-05] MEDS: ATORVASTATIN CA 40 MG TABLET (FP) PO SCH (21:11)
[2020-04-06] MEDS ORDERED: SODIUM CHLORIDE 250 ML IV PRN ×2 (07:38→13:10)
[2020-04-06] MEDS ORDERED: EPOETIN ALFA 10,000 UNIT/1 ML VIAL IVPUSH ONE ×2 (07:38→14:00)
[2020-04-06 08:41] LABS: HEMATOCRIT 31.9 % (32.4-45.2); HEMOGLOBIN 10.3 GM/dL (10.7-15.3); MCH 26.8 pg (25.7-33.7); MCHC 32.3 g/dl (32.0-36.0); MEAN CELL VOLUME 82.7 fl (80-96); MEAN PLT VOLUME 10.2 fl (7.5-11.1); PLATELET COUNT 218 K/MM3 (134-434); RBC 3.85 M/mm3 (3.60-5.2); RDW 17.6 % (11.6-15.6)
[2020-04-06 09:06] LABS: POTASSIUM 3.9 mmol/L (3.5-5.1)
[2020-04-06 09:07] LABS: CALCIUM 8.8 mg/dL (8.5-10.1)
[2020-04-06] MEDS ORDERED: HEPARIN NA (PORCINE) 5,000 UNITS/ML 1ML VIAL ONE ×3 (09:07→10:47)
[2020-04-06] MEDS ORDERED: LIDOCAINE HCL 1%, 10 MG/ML (20ML VIAL) ONE (09:07)
[2020-04-06 09:12] LABS: PHOSPHOROUS 8.4 mg/dL (2.5-4.9)
[2020-04-06] MEDS ORDERED: PROPOFOL 20 ML ONE (09:15)
[2020-04-06] MEDS ORDERED: fentaNYL CITRATE 250 MCG/5 ML VIAL ONE (09:15)
[2020-04-06] MEDS ORDERED: MIDAZOLAM HCL 2 MG/2 ML SINGLE DOSE VIAL ONE ×2 (09:16)
[2020-04-06 09:18] LABS: CREATININE 11.9 mg/dL (0.55-1.3)
[2020-04-06] MEDS: APIXABAN 5 MG TABLET PO SCH ×2 (09:26→22:08)
[2020-04-06] MEDS: ESCITALOPRAM OXALATE 10 MG TABLET PO SCH (09:26)
[2020-04-06] MEDS: DEXAMETHASONE SOD PHOSPHATE 4 MG/1 ML VIAL IVPUSH SCH (09:26)
[2020-04-06] MEDS: dilTIAZem HCL 30 MG TABLET PO SCH ×2 (09:26→22:08)
[2020-04-06] MEDS: ALBUTEROL SO4 HFA INHALER IH SCH ×2 (09:36→22:09)
[2020-04-06] MEDS ORDERED: ceFAZolin SODIUM 1 GM VIAL IVPB ONE (09:50)
[2020-04-06] MEDS ORDERED: ceFAZolin SODIUM 1 GM VIAL ONE (10:01)
[2020-04-06] MEDS ORDERED: LIDOCAINE HCL 1%, 10 MG/ML (20ML VIAL) NR ONE ×2 (10:05)
[2020-04-06] MEDS ORDERED: oxyCODONE HCL 5 MG TABLET PO PRN (12:15)
[2020-04-06] MEDS ORDERED: ACETAMINOPHEN 325 MG TABLET (FP) PO PRN (12:15)
[2020-04-06] MEDS ORDERED: PT OWN MED DRAWER 7, Y5N ONE (13:10)
[2020-04-06] MEDS: METHIMAZOLE 5 MG TABLET (FP) PO SCH (13:22)
[2020-04-06] MEDS: HEPARIN NA (PORCINE) 5,000 UNITS/ML 1ML VIAL IVPUSH SCH ×6 (14:00→17:07)
[2020-04-06] MEDS: METOPROLOL TARTRATE 25 MG TABLET (FP) PO SCH ×3 (14:20→22:08)
[2020-04-06] MEDS ORDERED: METOPROLOL TARTRATE 25 MG TABLET (FP) PO SCH (22:00)
[2020-04-06] MEDS: ATORVASTATIN CA 40 MG TABLET (FP) PO SCH (22:08)
[2020-04-07] MEDS: APIXABAN 5 MG TABLET PO SCH ×2 (09:18→23:18)
[2020-04-07] MEDS: DEXAMETHASONE SOD PHOSPHATE 4 MG/1 ML VIAL IVPUSH SCH (09:18)
[2020-04-07] MEDS: ESCITALOPRAM OXALATE 10 MG TABLET PO SCH (09:18)
[2020-04-07] MEDS: ALBUTEROL SO4 HFA INHALER IH SCH ×2 (09:19→23:18)
[2020-04-07] MEDS: dilTIAZem HCL 30 MG TABLET PO SCH ×2 (09:19→23:18)
[2020-04-07] MEDS: METOPROLOL TARTRATE 25 MG TABLET (FP) PO SCH ×2 (09:19→23:18)
[2020-04-07] MEDS ORDERED: PT OWN MED DRAWER 7, Y5N ONE (09:23)
[2020-04-07] MEDS: METHIMAZOLE 5 MG TABLET (FP) PO SCH (09:24)
[2020-04-07] MEDS: ATORVASTATIN CA 40 MG TABLET (FP) PO SCH (23:18)
[2020-04-08 08:16] LABS: POTASSIUM 4.1 mmol/L (3.5-5.1)
[2020-04-08 08:36] LABS: BLOOD UREA NITROGEN 109.8 mg/dL (7-18); CREATININE 11.5 mg/dL (0.55-1.3)
[2020-04-08] MEDS ORDERED: PT OWN MED DRAWER 7, Y5N ONE (09:27)
[2020-04-08] MEDS: APIXABAN 5 MG TABLET PO SCH ×2 (11:01→22:06)
[2020-04-08] MEDS: METOPROLOL TARTRATE 25 MG TABLET (FP) PO SCH ×2 (11:01→22:07)
[2020-04-08] MEDS: ESCITALOPRAM OXALATE 10 MG TABLET PO SCH (11:01)
[2020-04-08] MEDS: dilTIAZem HCL 30 MG TABLET PO SCH ×2 (11:01→22:07)
[2020-04-08] MEDS: ALBUTEROL SO4 HFA INHALER IH SCH ×2 (11:03→22:07)
[2020-04-08] MEDS: METHIMAZOLE 5 MG TABLET (FP) PO SCH (11:03)
[2020-04-08] MEDS: DEXAMETHASONE SOD PHOSPHATE 4 MG/1 ML VIAL IVPUSH SCH (11:04)
[2020-04-08] MEDS ORDERED: SODIUM CHLORIDE 250 ML IV PRN (14:11)
[2020-04-08] MEDS: ATORVASTATIN CA 40 MG TABLET (FP) PO SCH (22:06)
[2020-04-09] MEDS: HEPARIN NA (PORCINE) 5,000 UNITS/ML 1ML VIAL IVPUSH SCH ×3 (07:30→10:00)
[2020-04-09 08:28] LABS: HEMATOCRIT 29.5 % (32.4-45.2); HEMOGLOBIN 9.6 GM/dL (10.7-15.3); MCH 26.9 pg (25.7-33.7); MCHC 32.7 g/dl (32.0-36.0); MEAN CELL VOLUME 82.2 fl (80-96); MEAN PLT VOLUME 9.2 fl (7.5-11.1); PLATELET COUNT 271 K/MM3 (134-434); RBC 3.59 M/mm3 (3.60-5.2); RDW 17.3 % (11.6-15.6); WHITE BLOOD COUNT 21.7 K/mm3 (4.0-10.0)
[2020-04-09] MEDS ORDERED: EPOETIN ALFA 10,000 UNIT/1 ML VIAL IVPUSH ONE (08:30)
[2020-04-09 08:46] LABS: POTASSIUM 4.3 mmol/L (3.5-5.1)
[2020-04-09 08:47] LABS: CALCIUM 8.8 mg/dL (8.5-10.1)
[2020-04-09 08:51] LABS: PHOSPHOROUS 8.8 mg/dL (2.5-4.9)
[2020-04-09 09:11] LABS: BLOOD UREA NITROGEN 130.1 mg/dL (7-18); CREATININE 12.9 mg/dL (0.55-1.3)
[2020-04-09] MEDS: dilTIAZem HCL 30 MG TABLET PO SCH (10:00)
[2020-04-09] MEDS: METHIMAZOLE 5 MG TABLET (FP) PO SCH (10:00)
[2020-04-09] MEDS: METOPROLOL TARTRATE 25 MG TABLET (FP) PO SCH ×2 (10:00→23:15)
[2020-04-09] MEDS: ESCITALOPRAM OXALATE 10 MG TABLET PO SCH (10:00)
[2020-04-09] MEDS: APIXABAN 5 MG TABLET PO SCH ×2 (10:00→23:15)
[2020-04-09] MEDS: ALBUTEROL SO4 HFA INHALER IH SCH ×2 (12:00→23:16)
[2020-04-09 13:02] LABS: CREATININE 4.9 mg/dL (0.55-1.3)
[2020-04-09] MEDS ORDERED: METOCLOPRAMIDE HCL INJECTION 10 MG/2 ML VIAL IVPB ONE (22:30)
[2020-04-09] MEDS: ATORVASTATIN CA 40 MG TABLET (FP) PO SCH (23:14)
[2020-04-10] MEDS: dilTIAZem HCL 30 MG TABLET PO SCH ×3 (00:29→21:30)
[2020-04-10] MEDS ORDERED: PT OWN MED DRAWER 7, Y5N ONE ×2 (08:45→10:24)
[2020-04-10] MEDS: APIXABAN 5 MG TABLET PO SCH ×2 (10:32→21:30)
[2020-04-10] MEDS: ESCITALOPRAM OXALATE 10 MG TABLET PO SCH (10:32)
[2020-04-10] MEDS: METHIMAZOLE 5 MG TABLET (FP) PO SCH (10:33)
[2020-04-10] MEDS: ALBUTEROL SO4 HFA INHALER IH SCH ×2 (10:33→21:30)
[2020-04-10] MEDS: METOPROLOL TARTRATE 25 MG TABLET (FP) PO SCH (10:33)
[2020-04-10] MEDS: METOPROLOL TARTRATE 50 MG TABLET (FP) PO SCH ×2 (17:46→21:30)
[2020-04-10] MEDS ORDERED: METOPROLOL TARTRATE 50 MG TABLET (FP) PO SCH (18:00)
[2020-04-10] MEDS: ATORVASTATIN CA 40 MG TABLET (FP) PO SCH (21:30)
[2020-04-11] MEDS ORDERED: SODIUM CHLORIDE 500 ML IV ONE (01:25)
[2020-04-11] MEDS: MIDODRINE HCL 5 MG TABLET PO SCH ×3 (01:40→18:31)
[2020-04-11 08:41] LABS: BASO % 0.3 % (0-2.0); EOS % 0.1 % (0-4.5); HEMATOCRIT 30.8 % (32.4-45.2); HEMOGLOBIN 9.9 GM/dL (10.7-15.3); LYMPH % 4.7 % (8-40); MCH 26.9 pg (25.7-33.7); MCHC 32.2 g/dl (32.0-36.0); MEAN CELL VOLUME 83.3 fl (80-96); MEAN PLT VOLUME 8.6 fl (7.5-11.1); NEUT % 85.9 % (42.8-82.8); PLATELET COUNT 183 K/MM3 (134-434); RBC 3.69 M/mm3 (3.60-5.2); RDW 17.2 % (11.6-15.6); WHITE BLOOD COUNT 25.5 K/mm3 (4.0-10.0)
[2020-04-11] MEDS ORDERED: PT OWN MED DRAWER 7, Y5N ONE (08:59)
[2020-04-11 09:12] LABS: ALBUMIN 2.3 g/dl (3.4-5.0)
[2020-04-11 09:13] LABS: MAGNESIUM 2.4 mg/dL (1.8-2.4)
[2020-04-11 09:15] LABS: BILIRUBIN,TOTAL 0.5 mg/dL (0.2-1); PHOSPHOROUS 8.7 mg/dL (2.5-4.9); TOT PROT 6.7 g/dl (6.4-8.2)
[2020-04-11 09:27] LABS: BLOOD UREA NITROGEN 118.1 mg/dL (7-18); CREATININE 12.6 mg/dL (0.55-1.3)
[2020-04-11] MEDS: METHIMAZOLE 5 MG TABLET (FP) PO SCH (10:14)
[2020-04-11] MEDS: APIXABAN 5 MG TABLET PO SCH ×2 (10:15→21:29)
[2020-04-11] MEDS: METOPROLOL TARTRATE 50 MG TABLET (FP) PO SCH ×4 (10:15→21:29)
[2020-04-11] MEDS: ESCITALOPRAM OXALATE 10 MG TABLET PO SCH (10:15)
[2020-04-11] MEDS: ALBUTEROL SO4 HFA INHALER IH SCH ×2 (10:16→21:44)
[2020-04-11] MEDS: dilTIAZem HCL 30 MG TABLET PO SCH ×2 (10:16→21:29)
[2020-04-11 11:32] LABS: ANISOCYTOSIS 1+; MACROCYTOSIS 0; PLATELET ESTIMATE NORMAL
[2020-04-11] MEDS ORDERED: PIPERACILLIN/TAZOBACTAM 2.25 GM VIAL IVPB ONE ×2 (14:25→18:30)
[2020-04-11] MEDS ORDERED: DEXTROSE 5%-WATER - 50 ML IVPB ONE ×2 (14:25→18:30)
[2020-04-11] MEDS: PIPERACILLIN/TAZOB 2.25 GM 2.25 GM in DEXTROSE 5%-WATER - 50 ML IVPB SCH ×2 (14:27→18:31)
[2020-04-11] MEDS ORDERED: VANCOMYCIN 1 GRAM (PRE-DOCKED) 1,000 MG/250 ML BAG IVPB ONE (16:00)
[2020-04-11] MEDS: ATORVASTATIN CA 40 MG TABLET (FP) PO SCH (21:29)
[2020-04-12] MEDS ORDERED: PIPERACILLIN/TAZOBACTAM 2.25 GM VIAL IVPB ONE ×3 (01:58→17:55)
[2020-04-12] MEDS ORDERED: DEXTROSE 5%-WATER - 50 ML IVPB ONE ×3 (01:59→17:55)
[2020-04-12] MEDS: PIPERACILLIN/TAZOB 2.25 GM 2.25 GM in DEXTROSE 5%-WATER - 50 ML IVPB SCH ×3 (02:00→18:17)
[2020-04-12] MEDS ORDERED: PT OWN MED DRAWER 7, Y5N ONE (09:18)
[2020-04-12] MEDS: MIDODRINE HCL 5 MG TABLET PO SCH ×2 (10:06→18:41)
[2020-04-12] MEDS: APIXABAN 5 MG TABLET PO SCH ×2 (10:06→21:06)
[2020-04-12] MEDS: ESCITALOPRAM OXALATE 10 MG TABLET PO SCH (10:07)
[2020-04-12] MEDS: ALBUTEROL SO4 HFA INHALER IH SCH ×2 (10:07→21:10)
[2020-04-12] MEDS: METHIMAZOLE 5 MG TABLET (FP) PO SCH (10:07)
[2020-04-12] MEDS: METOPROLOL TARTRATE 50 MG TABLET (FP) PO SCH ×4 (10:18→21:06)
[2020-04-12] MEDS: dilTIAZem HCL 30 MG TABLET PO SCH ×2 (10:19→21:06)
[2020-04-12] MEDS ORDERED: SODIUM CHLORIDE 250 ML IV PRN ×2 (10:30→13:00)
[2020-04-12] MEDS ORDERED: HEPARIN NA (PORCINE) 5,000 UNITS/ML 1ML VIAL IVPUSH ONE (10:30)
[2020-04-12] MEDS: ALBUMIN HUMAN 25% 12.5 GM/50 ML VIAL IVPB SCH ×4 (10:30→12:00)
[2020-04-12 11:49] LABS: HEMATOCRIT 28.8 % (32.4-45.2); HEMOGLOBIN 9.5 GM/dL (10.7-15.3); MCH 27.2 pg (25.7-33.7); MCHC 32.9 g/dl (32.0-36.0); MEAN CELL VOLUME 82.6 fl (80-96); MEAN PLT VOLUME 8.8 fl (7.5-11.1); PLATELET COUNT 158 K/MM3 (134-434); RBC 3.48 M/mm3 (3.60-5.2); RDW 17.7 % (11.6-15.6); WHITE BLOOD COUNT 26.7 K/mm3 (4.0-10.0)
[2020-04-12 12:34] LABS: POTASSIUM 4.4 mmol/L (3.5-5.1)
[2020-04-12 12:36] LABS: CALCIUM 8.7 mg/dL (8.5-10.1)
[2020-04-12 12:50] LABS: PHOSPHOROUS 8.3 mg/dL (2.5-4.9)
[2020-04-12] MEDS ORDERED: ALBUMIN HUMAN 25% 12.5 GM/50 ML VIAL IVPB SCH (13:00)
[2020-04-12 13:07] LABS: BLOOD UREA NITROGEN 134.2 mg/dL (7-18); CREATININE 14.5 mg/dL (0.55-1.3)
[2020-04-12] MEDS: ATORVASTATIN CA 40 MG TABLET (FP) PO SCH (21:06)
[2020-04-13] MEDS ORDERED: PIPERACILLIN/TAZOBACTAM 2.25 GM VIAL IVPB ONE ×3 (02:07→18:24)
[2020-04-13] MEDS ORDERED: DEXTROSE 5%-WATER - 50 ML IVPB ONE ×3 (02:07→18:24)
[2020-04-13] MEDS: PIPERACILLIN/TAZOB 2.25 GM 2.25 GM in DEXTROSE 5%-WATER - 50 ML IVPB SCH ×3 (03:12→18:32)
[2020-04-13] MEDS ORDERED: PT OWN MED DRAWER 7, Y5N ONE ×3 (09:38→20:26)
[2020-04-13] MEDS: MIDODRINE HCL 5 MG TABLET PO SCH ×2 (09:49→18:32)
[2020-04-13] MEDS: APIXABAN 5 MG TABLET PO SCH ×2 (09:49→21:04)
[2020-04-13] MEDS: ESCITALOPRAM OXALATE 10 MG TABLET PO SCH (09:49)
[2020-04-13] MEDS: METOPROLOL TARTRATE 50 MG TABLET (FP) PO SCH ×4 (09:50→21:04)
[2020-04-13] MEDS: dilTIAZem HCL 30 MG TABLET PO SCH ×2 (09:50→21:04)
[2020-04-13] MEDS: ALBUTEROL SO4 HFA INHALER IH SCH ×2 (09:50→21:05)
[2020-04-13] MEDS: METHIMAZOLE 5 MG TABLET (FP) PO SCH (18:32)
[2020-04-13] MEDS: ATORVASTATIN CA 40 MG TABLET (FP) PO SCH (21:04)
[2020-04-14] MEDS ORDERED: DEXTROSE 5%-WATER - 50 ML IVPB ONE ×2 (01:20→11:15)
[2020-04-14] MEDS ORDERED: PIPERACILLIN/TAZOBACTAM 2.25 GM VIAL IVPB ONE ×2 (01:20→11:15)
[2020-04-14] MEDS: PIPERACILLIN/TAZOB 2.25 GM 2.25 GM in DEXTROSE 5%-WATER - 50 ML IVPB SCH ×3 (03:05→17:38)
[2020-04-14] MEDS ORDERED: PT OWN MED DRAWER 7, Y5N ONE ×2 (07:26→11:15)
[2020-04-14] MEDS: ALBUTEROL SO4 HFA INHALER IH SCH ×2 (09:00→22:00)
[2020-04-14] MEDS: APIXABAN 5 MG TABLET PO SCH ×2 (10:00→21:44)
[2020-04-14] MEDS: MIDODRINE HCL 5 MG TABLET PO SCH ×2 (10:00→17:39)
[2020-04-14] MEDS: dilTIAZem HCL 30 MG TABLET PO SCH ×2 (10:00→21:44)
[2020-04-14] MEDS: METOPROLOL TARTRATE 50 MG TABLET (FP) PO SCH ×4 (10:00→21:44)
[2020-04-14] MEDS ORDERED: EPOETIN ALFA 10,000 UNIT/1 ML VIAL IVPUSH ONE (10:15)
[2020-04-14] MEDS ORDERED: SODIUM CHLORIDE 250 ML IV PRN (10:25)
[2020-04-14] MEDS ORDERED: HEPARIN NA (PORCINE) 5,000 UNITS/ML 1ML VIAL IVPUSH ONE (10:30)
[2020-04-14 11:23] LABS: HEMATOCRIT 26.7 % (32.4-45.2); HEMOGLOBIN 8.5 GM/dL (10.7-15.3); MCH 26.8 pg (25.7-33.7); MEAN CELL VOLUME 83.9 fl (80-96); PLATELET COUNT 126 K/MM3 (134-434); RBC 3.18 M/mm3 (3.60-5.2); RDW 17.4 % (11.6-15.6); WHITE BLOOD COUNT 23.8 K/mm3 (4.0-10.0)
[2020-04-14 11:54] LABS: POTASSIUM 3.9 mmol/L (3.5-5.1)
[2020-04-14 11:55] LABS: CALCIUM 8.9 mg/dL (8.5-10.1)
[2020-04-14 12:11] LABS: BLOOD UREA NITROGEN 107.8 mg/dL (7-18); CREATININE 12.7 mg/dL (0.55-1.3)
[2020-04-14] MEDS: ESCITALOPRAM OXALATE 10 MG TABLET PO SCH (17:39)
[2020-04-14] MEDS: METHIMAZOLE 5 MG TABLET (FP) PO SCH (17:40)
[2020-04-14] MEDS: ATORVASTATIN CA 40 MG TABLET (FP) PO SCH (21:44)
[2020-04-15] MEDS ORDERED: PIPERACILLIN/TAZOBACTAM 2.25 GM VIAL IVPB ONE ×3 (01:01→16:42)
[2020-04-15] MEDS ORDERED: DEXTROSE 5%-WATER - 50 ML IVPB ONE ×3 (01:01→16:42)
[2020-04-15] MEDS: PIPERACILLIN/TAZOB 2.25 GM 2.25 GM in DEXTROSE 5%-WATER - 50 ML IVPB SCH ×3 (01:18→17:42)
[2020-04-15] MEDS: PANTOPRAZOLE 20 MG TABLET PO SCH (06:24)
[2020-04-15 08:02] LABS: BASO % 0.2 % (0-2.0); EOS % 0.3 % (0-4.5); HEMATOCRIT 27.5 % (32.4-45.2); HEMOGLOBIN 8.8 GM/dL (10.7-15.3); LYMPH % 5.2 % (8-40); MCH 27.1 pg (25.7-33.7); MCHC 32.1 g/dl (32.0-36.0); MEAN CELL VOLUME 84.4 fl (80-96); MEAN PLT VOLUME 8.7 fl (7.5-11.1); MONO % 12.5 % (3.8-10.2); NEUT % 81.8 % (42.8-82.8); PLATELET COUNT 111 K/MM3 (134-434); RBC 3.25 M/mm3 (3.60-5.2); RDW 17.2 % (11.6-15.6); WHITE BLOOD COUNT 23.9 K/mm3 (4.0-10.0)
[2020-04-15 09:56] LABS: ANISOCYTOSIS 0; MACROCYTOSIS 0; PLATELET ESTIMATE DECREASED
[2020-04-15] MEDS ORDERED: PT OWN MED DRAWER 7, Y5N ONE ×2 (10:29→12:36)
[2020-04-15] MEDS: BACITRACIN 15 GM TUBE TOPICAL OINTMENT TP SCH ×2 (10:58→21:19)
[2020-04-15] MEDS: METOPROLOL TARTRATE 50 MG TABLET (FP) PO SCH ×4 (10:59→21:19)
[2020-04-15] MEDS: ESCITALOPRAM OXALATE 10 MG TABLET PO SCH (10:59)
[2020-04-15] MEDS: APIXABAN 5 MG TABLET PO SCH ×2 (10:59→21:19)
[2020-04-15] MEDS: MIDODRINE HCL 5 MG TABLET PO SCH ×2 (11:01→17:43)
[2020-04-15] MEDS: dilTIAZem HCL 30 MG TABLET PO SCH ×2 (11:01→21:19)
[2020-04-15] MEDS: ALBUTEROL SO4 HFA INHALER IH SCH ×2 (11:25→21:20)
[2020-04-15] MEDS: METHIMAZOLE 5 MG TABLET (FP) PO SCH (11:25)
[2020-04-15 19:18] LABS: POTASSIUM 3.9 mmol/L (3.5-5.1)
[2020-04-15 19:33] LABS: BLOOD UREA NITROGEN 75.3 mg/dL (7-18)
[2020-04-15 19:49] LABS: CREATININE 9.9 mg/dL (0.55-1.3)
[2020-04-15] MEDS: ATORVASTATIN CA 40 MG TABLET (FP) PO SCH (21:19)
[2020-04-16] MEDS ORDERED: DEXTROSE 5%-WATER - 0 ML IVPB ONE (01:56)
[2020-04-16] MEDS ORDERED: PIPERACILLIN/TAZOBACTAM 2.25 GM VIAL IVPB ONE ×4 (01:56→18:07)
[2020-04-16] MEDS ORDERED: DEXTROSE 5%-WATER - 50 ML IVPB ONE ×3 (02:01→18:07)
[2020-04-16] MEDS: PIPERACILLIN/TAZOB 2.25 GM 2.25 GM in DEXTROSE 5%-WATER - 50 ML IVPB SCH ×3 (02:30→18:10)
[2020-04-16] MEDS: PANTOPRAZOLE 20 MG TABLET PO SCH (06:45)
[2020-04-16] MEDS ORDERED: SODIUM CHLORIDE 250 ML IV PRN (06:56)
[2020-04-16] MEDS ORDERED: HEPARIN NA (PORCINE) 5,000 UNITS/ML 1ML VIAL IVPUSH ONE (08:00)
[2020-04-16] MEDS ORDERED: EPOETIN ALFA-EPBX 10,000 UNIT/ML VIAL IVPUSH ONE (08:00)
[2020-04-16] MEDS: METOPROLOL TARTRATE 50 MG TABLET (FP) PO SCH ×4 (10:00→23:18)
[2020-04-16] MEDS ORDERED: PT OWN MED DRAWER 7, Y5N ONE ×2 (10:31→18:07)
[2020-04-16] MEDS: MIDODRINE HCL 5 MG TABLET PO SCH ×3 (10:36→18:11)
[2020-04-16] MEDS: ALBUTEROL SO4 HFA INHALER IH SCH ×2 (10:37→23:19)
[2020-04-16 14:47] LABS: HEMATOCRIT 24.2 % (32.4-45.2); MCH 27.1 pg (25.7-33.7); MCHC 33.1 g/dl (32.0-36.0); MEAN CELL VOLUME 81.9 fl (80-96); MEAN PLT VOLUME 9.2 fl (7.5-11.1); PLATELET COUNT 99 K/MM3 (134-434); RBC 2.95 M/mm3 (3.60-5.2); RDW 17.4 % (11.6-15.6); WHITE BLOOD COUNT 27.2 K/mm3 (4.0-10.0)
[2020-04-16 15:09] LABS: POTASSIUM 3.9 mmol/L (3.5-5.1)
[2020-04-16 15:12] LABS: CALCIUM 8.7 mg/dL (8.5-10.1)
[2020-04-16 15:13] LABS: BLOOD UREA NITROGEN 81.9 mg/dL (7-18)
[2020-04-16 15:16] LABS: PHOSPHOROUS 7.6 mg/dL (2.5-4.9)
[2020-04-16 15:30] LABS: CREATININE 10.7 mg/dL (0.55-1.3)
[2020-04-16] MEDS: dilTIAZem HCL 30 MG TABLET PO SCH ×2 (16:51→23:18)
[2020-04-16] MEDS: ESCITALOPRAM OXALATE 10 MG TABLET PO SCH (16:52)
[2020-04-16] MEDS: APIXABAN 5 MG TABLET PO SCH ×2 (18:11→23:18)
[2020-04-16] MEDS: METHIMAZOLE 5 MG TABLET (FP) PO SCH (18:12)
[2020-04-16] MEDS: BACITRACIN 15 GM TUBE TOPICAL OINTMENT TP SCH ×2 (18:24→23:19)
[2020-04-16] MEDS: ATORVASTATIN CA 40 MG TABLET (FP) PO SCH (23:19)
[2020-04-17] MEDS ORDERED: PIPERACILLIN/TAZOBACTAM 2.25 GM VIAL IVPB ONE ×3 (03:43→17:56)
[2020-04-17] MEDS ORDERED: DEXTROSE 5%-WATER - 50 ML IVPB ONE ×3 (03:43→17:56)
[2020-04-17] MEDS: PIPERACILLIN/TAZOB 2.25 GM 2.25 GM in DEXTROSE 5%-WATER - 50 ML IVPB SCH ×3 (04:08→17:58)
[2020-04-17] MEDS: PANTOPRAZOLE 20 MG TABLET PO SCH (07:09)
[2020-04-17] MEDS: MIDODRINE HCL 5 MG TABLET PO SCH ×3 (09:13→17:59)
[2020-04-17] MEDS: ESCITALOPRAM OXALATE 10 MG TABLET PO SCH (09:13)
[2020-04-17] MEDS: APIXABAN 5 MG TABLET PO SCH ×2 (09:14→21:08)
[2020-04-17] MEDS: METOPROLOL TARTRATE 50 MG TABLET (FP) PO SCH ×4 (09:14→21:09)
[2020-04-17] MEDS: BACITRACIN 15 GM TUBE TOPICAL OINTMENT TP SCH ×2 (09:14→21:08)
[2020-04-17] MEDS: ALBUTEROL SO4 HFA INHALER IH SCH ×2 (09:14→21:08)
[2020-04-17] MEDS: dilTIAZem HCL 30 MG TABLET PO SCH (09:14)
[2020-04-17] MEDS: METHIMAZOLE 5 MG TABLET (FP) PO SCH (10:58)
[2020-04-17] MEDS: ATORVASTATIN CA 40 MG TABLET (FP) PO SCH (21:08)
[2020-04-17] MEDS ORDERED: METOPROLOL TARTRATE 50 MG TABLET (FP) PO SCH (22:00)
[2020-04-18] MEDS ORDERED: DEXTROSE 5%-WATER - 50 ML IVPB ONE ×2 (00:54→09:35)
[2020-04-18] MEDS ORDERED: PIPERACILLIN/TAZOBACTAM 2.25 GM VIAL IVPB ONE ×2 (00:54→09:34)
[2020-04-18] MEDS: PIPERACILLIN/TAZOB 2.25 GM 2.25 GM in DEXTROSE 5%-WATER - 50 ML IVPB SCH ×2 (02:00→09:41)
[2020-04-18] MEDS: PANTOPRAZOLE 20 MG TABLET PO SCH (06:04)
[2020-04-18] MEDS ORDERED: PT OWN MED DRAWER 7, Y5N ONE (09:34)
[2020-04-18] MEDS: ALBUTEROL SO4 HFA INHALER IH SCH ×2 (09:41→22:06)
[2020-04-18] MEDS: ESCITALOPRAM OXALATE 10 MG TABLET PO SCH (09:42)
[2020-04-18] MEDS: METOPROLOL TARTRATE 50 MG TABLET (FP) PO SCH ×4 (09:42→22:06)
[2020-04-18] MEDS: APIXABAN 5 MG TABLET PO SCH ×2 (09:42→22:06)
[2020-04-18] MEDS: MIDODRINE HCL 5 MG TABLET PO SCH ×3 (09:42→17:33)
[2020-04-18] MEDS: BACITRACIN 15 GM TUBE TOPICAL OINTMENT TP SCH ×2 (09:43→22:06)
[2020-04-18] MEDS: METHIMAZOLE 5 MG TABLET (FP) PO SCH (09:43)
[2020-04-18] MEDS ORDERED: VANCOMYCIN 1 GRAM (PRE-DOCKED) 1,000 MG/250 ML BAG IVPB ONE (11:31)
[2020-04-18] MEDS ORDERED: DEXTROSE 5%-WATER 100 ML IVPB ONE ×2 (13:07→23:37)
[2020-04-18] MEDS ORDERED: MEROPENEM 500 MG VIAL (RESTRICTED TO ID) IVPB ONE ×2 (13:07→23:37)
[2020-04-18] MEDS: MEROPENEM 500 MG in DEXTROSE 5%-WATER 100 ML IVPB SCH ×2 (13:32→23:40)
[2020-04-18] MEDS ORDERED: METOPROLOL TARTRATE 5 MG/5 ML VIAL ONE (17:52)
[2020-04-18] MEDS ORDERED: dilTIAZem HCL 30 MG TABLET PO ONE (19:00)
[2020-04-18] MEDS ORDERED: METOPROLOL TARTRATE 25 MG TABLET (FP) PO ONE (19:00)
[2020-04-18] MEDS ORDERED: METOPROLOL TARTRATE 5 MG/5 ML VIAL IVPUSH PRN (20:50)
[2020-04-18] MEDS: ATORVASTATIN CA 40 MG TABLET (FP) PO SCH (22:06)
[2020-04-19] MEDS: PANTOPRAZOLE 20 MG TABLET PO SCH (06:06)
[2020-04-19] MEDS ORDERED: SODIUM CHLORIDE 250 ML IV PRN (06:51)
[2020-04-19] MEDS ORDERED: EPOETIN ALFA-EPBX 10,000 UNIT/ML VIAL SQ ONE (08:00)
[2020-04-19] MEDS: APIXABAN 5 MG TABLET PO SCH ×2 (10:23→21:36)
[2020-04-19] MEDS: METOPROLOL TARTRATE 50 MG TABLET (FP) PO SCH ×4 (10:23→21:36)
[2020-04-19] MEDS: dilTIAZem HCL 30 MG TABLET PO SCH ×2 (10:23→21:53)
[2020-04-19] MEDS: BACITRACIN 15 GM TUBE TOPICAL OINTMENT TP SCH ×2 (10:23→21:38)
[2020-04-19] MEDS: ESCITALOPRAM OXALATE 10 MG TABLET PO SCH (10:23)
[2020-04-19] MEDS: MIDODRINE HCL 5 MG TABLET PO SCH ×3 (10:23→17:35)
[2020-04-19] MEDS: METHIMAZOLE 5 MG TABLET (FP) PO SCH (10:24)
[2020-04-19] MEDS: ALBUTEROL SO4 HFA INHALER IH SCH ×2 (10:24→21:37)
[2020-04-19] MEDS ORDERED: MEROPENEM 500 MG VIAL (RESTRICTED TO ID) IVPB ONE ×2 (13:06→21:21)
[2020-04-19] MEDS ORDERED: DEXTROSE 5%-WATER 100 ML IVPB ONE ×2 (13:06→21:21)
[2020-04-19] MEDS: MEROPENEM 500 MG in DEXTROSE 5%-WATER 100 ML IVPB SCH ×2 (13:09→23:13)
[2020-04-19] MEDS ORDERED: ACETYLCYSTEINE 20% 200MG/ML 30 ML VIAL *FOR ORAL / INH USE ONLY NEB SCH (16:00)
[2020-04-19] MEDS ORDERED: ALBUTEROL SO4 0.083% IH SOL 2.5 MG/3 ML VIAL.NEB. NEB SCH (16:00)
[2020-04-19] MEDS: ATORVASTATIN CA 40 MG TABLET (FP) PO SCH (21:35)
[2020-04-20] MEDS: PANTOPRAZOLE 20 MG TABLET PO SCH (06:32)
[2020-04-20 06:48] VITALS: BP 130/60; PULSE 84; TEMP 98.9
[2020-04-20] MEDS ORDERED: SODIUM BICARBONATE 8.4% 50 MEQ/50 ML VIAL ONE (07:28)
== END 2020-04-20 09:28 | disposition expired | DRG 981 ==
LOC: JER 15:38 → JERBED 18:59 → J4W 03-29 14:27
PROVIDERS: ADMIT Internal Medicine; ATTEND Internal Medicine
PROC: 06HM33Z Insertion of Infusion Device into Right Femoral Vein, Percutaneous Approach (ICD-10-PCS; 2020-04-01)
PROC: B54BZZA Ultrasonography of Right Lower Extremity Veins, Guidance (ICD-10-PCS; 2020-04-01)
PROC: XW13325 Transfusion of Convalescent Plasma (Nonautologous) into Peripheral Vein, Percutaneous Approach, New Technology Group 5 (ICD-10-PCS; 2020-04-05)
PROC: 06HY33Z Insertion of Infusion Device into Lower Vein, Percutaneous Approach (ICD-10-PCS; 2020-04-05)
PROC: 03C83ZZ Extirpation of Matter from Left Brachial Artery, Percutaneous Approach (ICD-10-PCS; 2020-04-06)
PROC: 03W Upper Arteries, Revision (ICD-10-PCS; 2020-04-06)
PROC: 5A1D70Z Performance of Urinary Filtration, Intermittent, Less than 6 Hours Per Day (ICD-10-PCS; 2020-04-14)
PROC: 5A1D70Z Performance of Urinary Filtration, Intermittent, Less than 6 Hours Per Day (ICD-10-PCS; 2020-04-14)
PROC: 5A1D70Z Performance of Urinary Filtration, Intermittent, Less than 6 Hours Per Day (ICD-10-PCS; 2020-04-14)
PROC: 0CHY7BZ Insertion of Airway into Mouth and Throat, Via Natural or Artificial Opening (ICD-10-PCS; principal; 2020-04-20)
DX: U07.1 COVID-19 (principal); J96.21 Acute and chronic respiratory failure with hypoxia; J12.82 Pneumonia due to coronavirus disease 2019; N18.6 End stage renal disease; I13.2 Hypertensive heart and chronic kidney disease with heart failure and with stage 5 chronic kidney disease, or end stage renal disease; I50.42 Chronic combined systolic (congestive) and diastolic (congestive) heart failure; I24.8 Other forms of acute ischemic heart disease; T82.868A Thrombosis due to vascular prosthetic devices, implants and grafts, initial encounter; G81.94 Hemiplegia, unspecified affecting left nondominant side; E11.22 Type 2 diabetes mellitus with diabetic chronic kidney disease; I48.0 Paroxysmal atrial fibrillation; N25.0 Renal osteodystrophy; Z99.2 Dependence on renal dialysis
CPT/HCPCS: 36415; 36430; 71045-TC-FY; 71046-TC-FY; 71250-TC; 76000-TC-FY; 80048; 80053; 82550; 82565; 82728; 82962; 83605; 83615; 83690; 83735; 84100; 84484; 84520; 85025; 85027; 85379; 85610; 86140; 86704; 86706; 86707; 86708; 86709; 86803; 86850; 86870; 86880; 86900; 86901; 86902; 87040; 87340; 87804; 93005; 93010; 94010; 94760; 94761; 97116-GP; 97161-GP; 99285-25; C9803; J0885; J1644; P9017; P9047; Q5106; U0003